=== PATIENT | female | born 1940 | race Caucasian/White ===

== ENCOUNTER → 2017-04-24 10:24 | Outpatient (CLI) | payer MEDICARE, SELFPAY ==
[2017-04-24 11:44] LABS: Anion Gap 7 (5-15); BUN 30 mg/dL (7-18); BUN/Creat Ratio 21.9 RATIO (10-20); Calcium,Total 9.7 mg/dL (8.5-10.1); Chloride 100 mmol/L (98-107); Creatinine, Serum 1.37 mg/dL (0.55-1.02); EST Glomerular Filtration Rate 40 mL/min (>60); Est Glom Filt Rate - Afr Amer 48 mL/min (>60); Glucose 83 mg/dL (70-110); Potassium 4.6 mmol/L (3.5-5.1); Sodium Level 138 mmol/L (136-145)
== END ==
PROVIDERS: Family Provider Family Medicine; PCP Family Medicine; Visit Provider Internal Medicine Nephrology
DX: N18.3 Chronic kidney disease, stage 3 (moderate) (principal)
CPT/HCPCS: 36415; 80048

== ENCOUNTER → 2017-07-11 10:05 | Outpatient (CLI) | payer MEDICARE, SELFPAY ==
[2017-07-11 10:56] LABS: Hematocrit 38.8 % (37-47); Hemoglobin 12.5 g/dl (12.0-15.0); Mean Corp Hgb Conc 32.2 g/gl (32-36); Mean Corpuscular Hgb 31.7 pg (27.0-32.0); Mean Corpuscular Volume 98.5 fL (81-99); Mean Platelet Vol. 9.8 fl (6.2-12.0); Platelet Count 280 K/mm3 (150-450); RBC Distribution Width CV 13.3 % (11.6-14.6); RBC Distribution Width SD 46.9 fl (35.1-43.9); Red Blood Count 3.94 M/mm3 (4.2-5.4); Scan Indicated on CBC? Y/N NO; White Blood Count 8.2 K/mm3 (4.4-11.0)
[2017-07-11 11:23] LABS: Albumin, Serum 3.3 g/dL (3.2-5.0); BUN 44 mg/dL (7-18); BUN/Creat Ratio 31.7 RATIO (10-20); Calcium,Total 9.1 mg/dL (8.5-10.1); Chloride 105 mmol/L (98-107); Creatinine, Serum 1.39 mg/dL (0.55-1.02); EST Glomerular Filtration Rate 39 mL/min (>60); Est Glom Filt Rate - Afr Amer 48 mL/min (>60); Glucose 73 mg/dL (74-106); Potassium 4.9 mmol/L (3.5-5.1); Sodium Level 141 mmol/L (136-145)
== END ==
PROVIDERS: Family Provider Family Medicine; PCP Family Medicine; Visit Provider Internal Medicine Nephrology
DX: D64.9 Anemia, unspecified (principal); N18.3 Chronic kidney disease, stage 3 (moderate)
CPT/HCPCS: 36415; 80069; 85027

== ENCOUNTER → 2017-09-12 10:24 | Outpatient (CLI) | payer MEDICARE, SELFPAY ==
[2017-09-12 11:26] LABS: Albumin, Serum 3.2 g/dL (3.2-5.0); BUN 31 mg/dL (7-18); BUN/Creat Ratio 20.8 RATIO (10-20); Chloride 106 mmol/L (98-107); Creatinine, Serum 1.49 mg/dL (0.55-1.02); EST Glomerular Filtration Rate 36 mL/min (>60); Est Glom Filt Rate - Afr Amer 44 mL/min (>60); Glucose 87 mg/dL (74-106); Phosphorus 3.4 mg/dL (2.5-4.9); Potassium 4.8 mmol/L (3.5-5.1); Sodium Level 140 mmol/L (136-145)
[2017-09-12 11:35] LABS: PTHIN 113.9 pg/mL (18.4-80.1)
== END ==
PROVIDERS: Family Provider Family Medicine; PCP Family Medicine; Visit Provider Internal Medicine Nephrology
DX: E11.22 Type 2 diabetes mellitus with diabetic chronic kidney disease (principal); N18.3 Chronic kidney disease, stage 3 (moderate); N17.9 Acute kidney failure, unspecified
CPT/HCPCS: 36415; 80069; 83970

== ENCOUNTER → 2017-11-20 10:47 | Outpatient (CLI) | payer MEDICARE, SELFPAY ==
[2017-11-20 11:23] LABS: Hematocrit 38.5 % (37-47); Hemoglobin 12.5 g/dl (12.0-15.0); Mean Corp Hgb Conc 32.5 g/gl (32-36); Mean Corpuscular Hgb 32.6 pg (27.0-32.0); Mean Corpuscular Volume 100.3 fL (81-99); Mean Platelet Vol. 9.6 fl (6.2-12.0); Platelet Count 253 K/mm3 (150-450); RBC Distribution Width CV 13.2 % (11.6-14.6); RBC Distribution Width SD 48.2 fl (35.1-43.9); Red Blood Count 3.84 M/mm3 (4.2-5.4); White Blood Count 7.5 K/mm3 (4.4-11.0)
[2017-11-20 11:24] LABS: Scan Indicated on CBC? Y/N NO
[2017-11-20 11:31] LABS: Protein, Urine (Random) 121.2 mg/dL (<11.9); Protein:Creat Ratio 2335 mg/g CRE (0-200)
[2017-11-20 11:50] LABS: Albumin, Serum 3.4 g/dL (3.2-5.0); BUN 34 mg/dL (7-18); BUN/Creat Ratio 21.9 RATIO (10-20); Chloride 105 mmol/L (98-107); Creatinine, Serum 1.55 mg/dL (0.55-1.02); EST Glomerular Filtration Rate 35 mL/min (>60); Est Glom Filt Rate - Afr Amer 42 mL/min (>60); Glucose 189 mg/dL (74-106); Phosphorus 3.3 mg/dL (2.5-4.9); Potassium 4.6 mmol/L (3.5-5.1); Sodium Level 140 mmol/L (136-145)
[2017-11-21 15:03] LABS: Ferritin 159 ng/mL (8-252); Iron 76 ug/dL (50-170); Iron Binding Capacity,Total 239 ug/dL (250-450); PERCENT IRON SATURATION 31.8 % (15.0-55.0)
== END ==
PROVIDERS: Family Provider Family Medicine; PCP Family Medicine; Visit Provider Internal Medicine Nephrology
DX: N18.3 Chronic kidney disease, stage 3 (moderate) (principal); D63.8 Anemia in other chronic diseases classified elsewhere; E11.22 Type 2 diabetes mellitus with diabetic chronic kidney disease
CPT/HCPCS: 36415; 80069; 82570; 82728; 83540; 83550; 84156; 85027

== ENCOUNTER → 2018-10-19 12:09 | Outpatient (CLI) | payer MEDICARE, SELFPAY ==
[2018-10-13 13:57] VITALS: BMI 43.8
[2018-10-19 12:48] LABS: Hematocrit 38.6 % (37-47); Hemoglobin 12.3 g/dL (12.0-15.0); Mean Corp Hgb Conc 31.9 g/dL (32-36); Mean Corpuscular Volume 100.5 fL (81-99); Platelet Count 261 K/mm3 (150-450); RBC Distribution Width CV 11.9 % (11.6-14.6); RBC Distribution Width SD 43.6 fl (35.1-43.9); Red Blood Count 3.84 M/mm3 (4.2-5.4); White Blood Count 7.9 K/mm3 (4.4-11.0)
[2018-10-19 13:02] LABS: Protein, Urine (Random) 90.3 mg/dL (<11.9); Protein:Creat Ratio 2770 mg/g CRE (0-200)
[2018-10-19 13:30] LABS: BUN 53 mg/dL (7-18); EST Glomerular Filtration Rate 27 mL/min (>60); Glucose 192 mg/dL (74-106)
[2018-10-19 13:31] LABS: Albumin, Serum 3.3 g/dL (3.2-5.0); BUN/Creat Ratio 27.9 RATIO (10-20); Calcium,Total 8.9 mg/dL (8.5-10.1); Chloride 103 mmol/L (98-107); Est Glom Filt Rate - Afr Amer 33 mL/min (>60); Phosphorus 3.8 mg/dL (2.5-4.9); Potassium 4.7 mmol/L (3.5-5.1); Sodium Level 139 mmol/L (136-145)
== END ==
PROVIDERS: Family Provider Family Medicine; PCP Family Medicine; Referring Provider Internal Medicine Nephrology; Visit Provider Internal Medicine Nephrology
DX: N18.3 Chronic kidney disease, stage 3 (moderate) (principal); N25.81 Secondary hyperparathyroidism of renal origin; D63.8 Anemia in other chronic diseases classified elsewhere; E11.22 Type 2 diabetes mellitus with diabetic chronic kidney disease
CPT/HCPCS: 36415; 80069; 82570; 83970; 84156; 85027

== ENCOUNTER → 2018-11-18 09:49 | Outpatient (CLI) | payer MEDICARE, SELFPAY ==
[2018-10-13 13:57] VITALS: BMI 43.8
[2018-11-18 11:00] LABS: Albumin, Serum 3.3 g/dL (3.2-5.0); BUN 47 mg/dL (7-18); BUN/Creat Ratio 27.2 RATIO (10-20); Calcium,Total 8.6 mg/dL (8.5-10.1); Chloride 108 mmol/L (98-107); Creatinine, Serum 1.73 mg/dL (0.55-1.02); EST Glomerular Filtration Rate 30 mL/min (>60); Est Glom Filt Rate - Afr Amer 37 mL/min (>60); Glucose 107 mg/dL (74-106); PTHIN 183.5 pg/mL (18.4-80.1); Phosphorus 3.9 mg/dL (2.5-4.9); Potassium 4.4 mmol/L (3.5-5.1); Sodium Level 143 mmol/L (136-145)
== END ==
PROVIDERS: Family Provider Family Medicine; PCP Family Medicine; Referring Provider Internal Medicine Nephrology; Visit Provider Internal Medicine Nephrology
DX: N18.3 Chronic kidney disease, stage 3 (moderate) (principal); N17.9 Acute kidney failure, unspecified; E55.9 Vitamin D deficiency, unspecified
CPT/HCPCS: 36415; 80069; 83970

== ENCOUNTER → 2018-12-18 11:24 | Outpatient (CLI) | payer MEDICARE, SELFPAY ==
[2018-10-13 13:57] VITALS: BMI 43.8
[2018-12-18 13:40] LABS: Vitamin D,25 Hydroxy 42.5 ng/mL (29.95-100.01)
[2018-12-18 13:53] LABS: Albumin, Serum 3.3 g/dL (3.2-5.0); BUN 57 mg/dL (7-18); Calcium,Total 8.6 mg/dL (8.5-10.1); Chloride 106 mmol/L (98-107); Creatinine, Serum 1.78 mg/dL (0.55-1.02); EST Glomerular Filtration Rate 29 mL/min (>60); Est Glom Filt Rate - Afr Amer 36 mL/min (>60); Glucose 170 mg/dL (74-106); Phosphorus 3.6 mg/dL (2.5-4.9); Potassium 4.6 mmol/L (3.5-5.1); Sodium Level 140 mmol/L (136-145)
== END ==
PROVIDERS: Family Provider Family Medicine; PCP Family Medicine; Referring Provider Internal Medicine Nephrology; Visit Provider Internal Medicine Nephrology
DX: E55.9 Vitamin D deficiency, unspecified (principal); N18.3 Chronic kidney disease, stage 3 (moderate)
CPT/HCPCS: 36415; 80069; 82306

== ENCOUNTER → 2019-08-27 10:50 | Outpatient (CLI) | payer MEDICARE, SELFPAY ==
[2018-12-22 14:55] VITALS: BMI 43.2
[2019-08-27 11:27] LABS: Hemoglobin 12.1 g/dL (12.0-15.0); Mean Corp Hgb Conc 31.8 g/dL (32-36); Mean Corpuscular Hgb 31.8 pg (27.0-32.0); Platelet Count 294 K/mm3 (150-450); RBC Distribution Width CV 12.9 % (11.6-14.6); RBC Distribution Width SD 47.8 fl (35.1-43.9)
[2019-08-27 11:48] LABS: Protein, Urine (Random) 228.6 mg/dL (<11.9); Protein:Creat Ratio 3693 mg/g CRE (0-200)
[2019-08-27 12:18] LABS: Albumin, Serum 3.3 g/dL (3.2-5.0); BUN 53 mg/dL (7-18); BUN/Creat Ratio 21.7 RATIO (10-20); Calcium,Total 8.5 mg/dL (8.5-10.1); Chloride 101 mmol/L (98-107); Creatinine, Serum 2.44 mg/dL (0.55-1.02); EST Glomerular Filtration Rate 20 mL/min (>60); Est Glom Filt Rate - Afr Amer 25 mL/min (>60); Ferritin 216 ng/mL (8-252); Glucose 204 mg/dL (74-106); Iron 71 ug/dL (50-170); Iron Binding Capacity,Total 258 ug/dL (250-450); PERCENT IRON SATURATION 27.5 % (15.0-55.0); Potassium 4.1 mmol/L (3.5-5.1); Sodium Level 139 mmol/L (136-145)
[2019-08-27 15:21] LABS: PTHIN 245.6 pg/mL (18.4-80.1)
[2019-08-27 16:07] LABS: Vitamin D,25 Hydroxy 40.1 ng/mL
== END ==
PROVIDERS: Family Provider Family Medicine; PCP Family Medicine; Referring Provider Internal Medicine Nephrology; Visit Provider Internal Medicine Nephrology
DX: N18.3 Chronic kidney disease, stage 3 (moderate) (principal); E11.22 Type 2 diabetes mellitus with diabetic chronic kidney disease; D63.8 Anemia in other chronic diseases classified elsewhere; N25.81 Secondary hyperparathyroidism of renal origin; E55.9 Vitamin D deficiency, unspecified
CPT/HCPCS: 36415; 80069; 82306; 82570; 82728; 83540; 83550; 83970; 84156; 85027

== ENCOUNTER → 2019-10-22 12:49 | Outpatient (CLI) | payer MEDICARE, SELFPAY ==
[2018-12-22 14:55] VITALS: BMI 43.2
[2019-10-22 14:21] LABS: PTHIN 164.6 pg/mL (18.4-80.1)
[2019-10-22 14:24] LABS: Albumin, Serum 2.8 g/dL (3.2-5.0); BUN 35 mg/dL (7-18); BUN/Creat Ratio 18.4 RATIO (10-20); Calcium,Total 8.5 mg/dL (8.5-10.1); Chloride 106 mmol/L (98-107); EST Glomerular Filtration Rate 27 mL/min (>60); Est Glom Filt Rate - Afr Amer 33 mL/min (>60); Glucose 164 mg/dL (74-106); Phosphorus 3.5 mg/dL (2.5-4.9); Potassium 4.7 mmol/L (3.5-5.1); Sodium Level 137 mmol/L (136-145)
== END ==
PROVIDERS: PCP Family Medicine; Referring Provider Internal Medicine Nephrology; Visit Provider Internal Medicine Nephrology
DX: N18.3 Chronic kidney disease, stage 3 (moderate) (principal); N25.81 Secondary hyperparathyroidism of renal origin
CPT/HCPCS: 36415; 80069; 83970

== ENCOUNTER → 2019-12-30 12:47 | Outpatient (CLI) | payer MEDICARE, SELFPAY ==
[2019-10-26 13:39] VITALS: BMI 41.7
[2019-12-30 13:18] LABS: Hematocrit 33.9 % (37-47); Hemoglobin 10.4 g/dL (12.0-15.0); Mean Corp Hgb Conc 30.7 g/dL (32-36); Mean Corpuscular Hgb 31.7 pg (27.0-32.0); Mean Corpuscular Volume 103.4 fL (81-99); Mean Platelet Vol. 9.5 fl (6.2-12.0); Platelet Count 252 K/mm3 (150-450); RBC Distribution Width CV 12.4 % (11.6-14.6); RBC Distribution Width SD 47.1 fl (35.1-43.9); Red Blood Count 3.28 M/mm3 (4.2-5.4); White Blood Count 5.7 K/mm3 (4.4-11.0)
[2019-12-30 13:37] LABS: PTHIN 251.7 pg/mL (18.4-80.1)
[2019-12-30 13:40] LABS: Albumin, Serum 2.9 g/dL (3.2-5.0); BUN 30 mg/dL (7-18); BUN/Creat Ratio 13.3 RATIO (10-20); Calcium,Total 8.3 mg/dL (8.5-10.1); Chloride 106 mmol/L (98-107); Creatinine, Serum 2.26 mg/dL (0.55-1.02); EST Glomerular Filtration Rate 22 mL/min (>60); Est Glom Filt Rate - Afr Amer 27 mL/min (>60); Glucose 207 mg/dL (74-106); Phosphorus 3.5 mg/dL (2.5-4.9); Potassium 4.2 mmol/L (3.5-5.1); Sodium Level 139 mmol/L (136-145)
== END ==
PROVIDERS: PCP Family Medicine; Referring Provider Internal Medicine Nephrology; Visit Provider Internal Medicine Nephrology
DX: N18.30 Chronic kidney disease, stage 3 unspecified (principal); N25.81 Secondary hyperparathyroidism of renal origin; D63.8 Anemia in other chronic diseases classified elsewhere
CPT/HCPCS: 36415; 80069; 83970; 85027

== ENCOUNTER 2020-12-13 17:05 | Emergency (ER) | payer MEDICARE, SELFPAY ==
[2020-12-13 17:06] VITALS: BP 165/59; PULSE 57; RESP 15; TEMP 36.2; O2SAT 97; BMI 41.5
--- NOTE | 2020-12-13 19:33 | EDS_ITS ---
HPI History of Present Illness Chief Complaint: Eye Problem Informant: patient Onset/Context/Timing Location: Right Eye Onset: Days Context: Gradual Onset Timing: Intermittent Current Severity: Gone Maximum Severity: Mild Associated Symptoms Associated Symptoms - Eyes: Negative for Burning, Crusting, Drainage, Eyelid swelling, Foreign body sensation, Itching, Matting, Pain, Photophobia and Redness History of injury: No Visual correction: Glasses Narrative Narrative: 72-year-old female history of diabetes prior cataract surgery in both eyes and surgery for glaucoma for which she is also on drops. Saw her fishing vessel operator Dr. Satnam Light of [facility] a week or 2 ago before the symptoms started just for a checkup. She denies any falls or trauma. She denies any headaches. Currently she is not having any symptoms. She said when she gets it it feels like a curtain coming down from the top of her right eye. It normally last 2 to 4 minutes. Currently she is completely symptom-free. There is no pain. States her blood sugars have been running around 100. Prior similar symptoms: No Recent Illness/Hospitalization: No PFSH [facility] Medical History Asthma Atherosclerosis of coronary artery of [place] heart without angina pectoris Bilateral carotid artery stenosis Chronic diastolic CHF (congestive heart failure) Essential hypertension GERD (gastroesophageal reflux disease) Glaucoma History of left heart catheterization (~2015) Hyperlipidemia Hyperparathyroidism, secondary renal Hypothyroidism Lichenification and lichen simplex chronicus Major depressive disorder Neurodermatitis Non-proliferative diabetic retinopathy, both eyes Nummular eczema Stage 3 chronic kidney disease Type II diabetes mellitus Vitamin B 12 deficiency Home Medications acetaminophen 500 mg tablet 500 mg PO Q6H PRN 10/12/18 [History Last Taken Unknown] amlodipine 10 mg tablet 10 mg PO DAILY 10/12/18 [History Last Taken Unknown] aspirin 81 mg chewable tablet 81 mg PO DAILY 10/12/18 [History Last Taken Unknown] atorvastatin 80 mg tablet 80 mg PO QHS 10/12/18 [History Last Taken Unknown] citalopram 40 mg tablet 40 mg PO DAILY tab 10/12/18 [History Last Taken Unknown] cyanocobalamin (vitamin B-12) 2,500 mcg sublingual tablet 2,500 mcg SUBLINGUAL DAILY 10/12/18 [History Last Taken Unknown] ergocalciferol (vitamin D2) 1,250 mcg (50,000 unit) capsule 50,000 unit PO QWEEK 10/12/18 [History Last Taken Unknown] insulin glargine 100 unit/mL (3 mL) subcutaneous pen 28 unit SC DAILY ml 10/12/18 [History Last Taken Unknown] omeprazole 40 mg capsule,delayed release 40 mg PO DAILY 10/12/18 [History Last Taken Unknown] albuterol sulfate 90 mcg/actuation aerosol inhaler 2 puff INHALATION Q4H PRN g 10/13/18 [History Last Taken Unknown] ferrous sulfate 325 mg (65 mg iron) tablet 325 mg PO BID tab 10/13/18 [History Last Taken Unknown] glipizide 5 mg tablet 5 mg PO DAILY tab 12/22/18 [History Last Taken Unknown] biotin 5 mg capsule 5 mg PO DAILY 10/26/19 [History Last Taken Unknown] calcitriol 0.25 mcg capsule 0.25 mcg PO .COMPLEX cap 10/26/19 [History Last Taken Unknown] calcium carbonate 600 mg calcium (1,500 mg) tablet 600 mg PO DAILY 10/26/19 [History Last Taken Unknown] folic acid 400 mcg tablet 0.4 mg PO DAILY 10/26/19 [History Last Taken Unknown] furosemide 20 mg tablet 20 mg PO DAILY PRN tab 10/26/19 [History Last Taken Unknown] latanoprost 0.005 % eye drops 1 drp OPHTHALMIC BID ml 10/26/19 [History Last Taken Unknown] levothyroxine 137 mcg tablet 137 mcg PO DAILY tab 10/26/19 [History Last Taken Unknown] montelukast 10 mg tablet 10 mg PO DAILY 10/26/19 [History Last Taken Unknown] niacin 500 mg tablet,extended release 24 hr 500 mg PO DAILY tab 10/26/19 [History Last Taken Unknown] magnesium oxide 400 mg PO DAILY 08/15/20 [History Last Taken Unknown] hydralazine 25 mg tablet 100 mg PO TID #360 tab 09/14/20 [Rx Last Taken Unknown] carvedilol 3.125 mg tablet 3.125 mg PO BID #60 tab 11/22/20 [Rx Last Taken Unknown] clonidine HCl 0.2 mg tablet 0.2 mg PO BID tab 11/22/20 [History Last Taken Unknown] losartan 100 mg tablet 100 mg PO DAILY 11/22/20 [History Last Taken Unknown] Allergy/AdvReac Type Severity Reaction Status Date / Time metformin [From Glucophage] Allergy Severe renal Verified 12/13/20 17:06 failure adhesive Allergy Intermediate blisters Verified 12/13/20 17:06 oxycodone Allergy Intermediate hallucinati Verified 12/13/20 17:06 ons tramadol Allergy Intermediate Vomiting Verified 12/13/20 17:06 ERIC Inhibitors AdvReac Intermediate cough Verified 12/13/20 17:06 Family History Father Heart disease Hypertension Suicide Mother Hypertension CVA (cerebral vascular accident) COPD (chronic obstructive pulmonary disease) CAD (coronary artery disease) Surgical History History of bilateral knee replacement (~1989) History of breast biopsy History of open reduction and internal fixation (ORIF) procedure History of right cataract extraction (10/03/11) History of tonsillectomy Social History Smoking Status: Never smoker alcohol intake: never substance use type: does not use caffeine: Yes Type: coffee Number of servings: 2 ROS ROS ED ROS Narrative Denies recent illness. Review of Systems ROS Unobtainable: Denies due to encephalopathy Constitutional Constitutional ED: Denies chills or fever(s) Eyes Eyes: Reports change in vision; Denies diplopia ENT ENT ED: Denies ear pain or sore throat Cardiovascular Cardiovascular: Denies chest pain Respiratory/Chest Respiratory/Chest: Denies cough or dyspnea Gastrointestinal Gastrointestinal: Denies abdominal pain, diarrhea, nausea or vomiting Genitourinary Genitourinary ED: Denies dysuria or hematuria Musculoskeletal Musculoskeletal: Denies myalgias Integumentary Denies rash Neurologic Neurologic: Denies headache(s) Psychiatric Psychiatric: Denies depression Endocrine Endocrinology: Denies polyuria Hematologic/Lymphatic Hematologic/Lymphatic: Denies easy bruising Allergic/Immunologic Allergic/Immunologic ED: Denies urticaria EXAM Physical Exam Narrative Exam Narrative: Female no acute distress. Normal visual acuity with her glasses on. HEENT exam unremarkable. Pupils round reactive light about 2 mm bilaterally. Extra motions are intact. No facial droop. Normal speech. I did a funduscopic exam of her right eye was unremarkable but this was a nondilated pupil. Lungs are clear. Heart regular rate and rhythm. Moving all 4 extremities. Mild bilateral lower extremity edema bilaterally. Neurologically she is awake and alert. No focal motor deficits. Currently she has normal corrected vision with her eyes. Const Vital Signs: 12/13/20 17:06 Temperature 97.2 F L Temperature Source Temporal Pulse Rate 57 L Respiratory Rate 15 Blood Pressure 165/59 H Blood Pressure Mean 94 Pulse Ox 97 Oxygen Delivery Method Room Air Positive well nourished and well developed; Negative for obese, cachectic, contractures or unkempt General Appearance ED: well developed and NAD; Negative for unkempt, cachectic or contractures Nutritional Appearance: Negative for cachectic or obese HEENT atraumatic; Negative for trauma or tenderness Eyes General Eye ED: Yes normal appearance of both eyes Visual Acuity: acuity normal; Negative for complete vision loss Visual Field: No peripheral vision loss and No central vision loss Periorbital: periorbital findings normal Eyelid: eyelids normal Conjunctiva: conjunctiva normal Sclera: sclera normal Cornea: cornea normal Pupil: PERRL Slit Lamp: No slit lamp exam performed with fluorescein Neck no lymphadenopathy, supple and no JVD Resp normal respiratory effort, no retractions, no use of accessory muscles and clear to auscultation bilaterally Cardio regular rate, regular rhythm, S1 normal heart sound, S2 normal heart sound and no murmurs GI non-tender, non-distended and no masses Auscultation: normoactive bowel sounds Palpation: soft Back/Spine no CVA tenderness General Back: Negative for CVA tenderness Extremity Extremity Narrative: Bilateral lower extremity edema. Nontender. General Extremety ED: Yes edema General Extremity: edema Neuro oriented x3, CN's II-XII intact bilaterally and moves all extremities Sensorium / Orientation: alert, oriented to person, oriented to place and oriented to time; Negative for orientation impaired Motor Exam: strength 5/5 throughout Psych Appearance: Negative for unkempt Mood & Affect: Negative for depressed or tearful Skin Lesions: no lesions Rashes: no rashes MDM MDM MDM Narrative Medical decision making narrative: Patient with intermittent vision change right eye. Currently she is having no symptoms. She has normal corrected vision with her glasses. Clinically this sounds like she may have a detached retina. But at this time she is symptom-free. I will speak to the fishing vessel operator stitch bonding machine drawer in for [facility] and most likely patient can have close follow-up tomorrow morning. I spoke with fishing vessel operator on-call he wanted me to do CAT scan and neurological work-up. This showed no acute abnormality. Sedimentation rate was elevated at 49. CRP was elevated at 10. Patient will follow up with ophthalmology tomorrow. Repeat exam at 10:25 PM she is doing well. Lab Data Attestation: I reviewed the patient's lab results. Lab results narrative: CBC showed a white count 8. Hemoglobin is 10 which is her baseline chronic anemia. Electrolytes unremarkable BUNs elevated 46 creatinine 3.53 she has a history of end-stage renal disease. Glucose 68. Normal gap. Rhythm Strip Rhythm Strip: Junctional rhythm Rate: 54 Ectopy: None EKG Initial EKG: Attestation: I personally reviewed and interpreted this EKG as follows: Interpretation: No Acute Injury Pattern and Junctional Comments: Junctional rhythm rate of 54 no acute signs of IN or ischemia. Prior EKG tracings: not available for review Discharge Plan Triage Chief Complaint: Eye Problem ED Provider: Dipak Johnston Dx/Rx/DC Orders Clinical Impression: Detached retina, right Instructions: ED Retinal Detachment Prescriptions: No Action amlodipine 10 mg tablet 10 mg PO DAILY RF: 0 omeprazole 40 mg capsule,delayed release(DR/EC) 40 mg PO DAILY RF: 0 ergocalciferol (vitamin D2) 50,000 unit capsule 50,000 unit PO QWEEK RF: 0 citalopram 40 mg tablet 40 mg PO DAILY RF: 0 atorvastatin 80 mg tablet 80 mg PO QHS RF: 0 insulin glargine 100 unit/mL (3 mL) insulin pen 28 unit SC DAILY RF: 0 cyanocobalamin (vitamin B-12) [Vitamin B-12] 2,500 mcg tablet, sublingual 2,500 mcg SUBLINGUAL DAILY RF: 0 acetaminophen 500 mg tablet 500 mg PO Q6H PRNRF: 0 aspirin 81 mg tablet,chewable 81 mg PO DAILY RF: 0 albuterol sulfate 90 mcg/actuation HFA aerosol inhaler 2 puff INHALATION Q4H PRNRF: 0 ferrous sulfate 325 mg (65 mg iron) tablet 325 mg PO BID RF: 0 glipizide 5 mg tablet 5 mg PO DAILY RF: 0 latanoprost 0.005 % drops 1 drp OPHTHALMIC BID RF: 0 levothyroxine 137 mcg tablet 137 mcg PO DAILY RF: 0 furosemide 20 mg tablet 20 mg PO DAILY PRN (Reason: shortness of breath) RF: 0 niacin [Niaspan Extended-Release] 500 mg tablet extended release 24 hr 500 mg PO DAILY RF: 0 clonidine HCl 0.2 mg tablet 0.2 mg PO BID RF: 0 biotin 5 mg capsule 5 mg PO DAILY RF: 0 calcitriol 0.25 mcg capsule 0.25 mcg PO .COMPLEX RF: 0 folic acid 400 mcg tablet 0.4 mg PO DAILY RF: 0 montelukast 10 mg tablet 10 mg PO DAILY RF: 0 calcium carbonate 600 mg calcium (1,500 mg) tablet 600 mg PO DAILY RF: 0 magnesium oxide 400 mg magnesium tablet 400 mg PO DAILY RF: 0 losartan 100 mg tablet 100 mg PO DAILY RF: 0 carvedilol 3.125 mg tablet 3.125 mg PO BID Qty: 60 RF: 11 hydralazine 25 mg tablet 100 mg PO TID Qty: 360 RF: 11 Primary Care Provider: Satnam Saldana Referrals: Satnam Saldana MD [Primary Care Provider] - Satnam Light MD [STAFF PHYSICIAN] - 1 Day Activity Restrictions/Additional Instructions: Call and follow-up with your eye doctor first thing tomorrow morning. My concern is for a possible detached retina. They will be able to dilate your pupil and look at your back your eye well and determine the specific cause of your symptoms. Disposition Disposition: Home, Self Care
[2020-12-13 19:53] VITALS: BP 218/72
--- NOTE | 2020-12-13 20:06 | EKG12_ITS ---
Test Reason : DYSRHYTHMIA Blood Pressure : / mmHG Vent. Rate : 054 BPM Atrial Rate : 052 BPM P-R Int : 000 ms QRS Dur : 094 ms QT Int : 516 ms P-R-T Axes : 000 021 048 degrees QTc Int : 489 ms Junctional rhythm Low voltage QRS Abnormal ECG Confirmed by ANTONIETA TAYLOR, SHANA ([id number]), publication editor LENNOX MOCTEZUMA ([id number]) on 12/14/2020 10:40:55 AM Referred By: CHIDI Confirmed By:SHANA FUNG MD
--- NOTE | 2020-12-13 20:10 | CT_ITS ---
HISTORY: vision change TECHNIQUE: Multiple axial images were obtained of the brain without intravenous contrast. A radiation dose optimization technique was used for this scan. IV Contrast dosage and agent: None. COMPARISON: None FINDINGS: # of images incl. paperwork: [id number] PARANASAL SINUSES AND MASTOID AIR CELLS: Scattered mucoperiosteal disease. INTRACRANIAL HEMORRHAGE: None. BRAIN PARENCHYMA: No CT evidence of stroke. No intracranial masses. There is preservation of the varghese/white matter interface. Posterior fossa structures are unremarkable. There is hypoattenuation of the periventricular white matter. Chronic involutional changes are noted. CSF SPACES: Appropriate for age. There is no hydrocephalus. MASS EFFECT: None. CALVARIUM: No acute fracture. CT/Brain/Head without Contrast IMPRESSION: Chronic involutional and white matter changes. No acute intracranial process. Individualized dose optimization techniques were used for this CT. at 2056 Reported and signed by: Stephane Carter MD Electronically Signed: Stephane Carter MD at 20:55 EDT Tel , Service support ,
[2020-12-13 20:49] LABS: Anion Gap 6 (5-15); BUN 46 mg/dL (7-18); Calcium,Total 7.4 mg/dL (8.5-10.1); Chloride 109 mmol/L (98-107); Creatinine, Serum 3.53 mg/dL (0.55-1.02); EST Glomerular Filtration Rate 13 mL/min (>60); Est Glom Filt Rate - Afr Amer 16 mL/min (>60); Estimated Creatinine Clearance 9.91 ml/min; Glucose 68 mg/dL (74-106); Hematocrit 33.9 % (37-47); Hemoglobin 10.4 g/dL (12.0-15.0); Mean Corp Hgb Conc 30.7 g/dL (32-36); Mean Corpuscular Volume 104.3 fL (81-99); Mean Platelet Vol. 9.8 fl (6.2-12.0); Platelet Count 341 K/mm3 (150-450); Potassium 4.5 mmol/L (3.5-5.1); RBC Distribution Width CV 12.7 % (11.6-14.6); RBC Distribution Width SD 49.1 fl (35.1-43.9); Red Blood Count 3.25 M/mm3 (4.2-5.4); Sodium Level 139 mmol/L (136-145)
[2020-12-13 21:30] LABS: Erythrocyte Sedimentation Rate 49 mm/hr (0-30)
== END 2020-12-13 22:37 | disposition home or self-care (01) ==
PROVIDERS: Emergency Provider Emergency Medicine; PCP Family Medicine
DX: H33.21 Serous retinal detachment, right eye (principal); I13.2 Hypertensive heart and chronic kidney disease with heart failure and with stage 5 chronic kidney disease, or end stage renal disease; E11.22 Type 2 diabetes mellitus with diabetic chronic kidney disease; N18.6 End stage renal disease; I50.32 Chronic diastolic (congestive) heart failure; E03.9 Hypothyroidism, unspecified; E78.5 Hyperlipidemia, unspecified; F32.9 Major depressive disorder, single episode, unspecified; I25.10 Atherosclerotic heart disease of native coronary artery without angina pectoris; J45.909 Unspecified asthma, uncomplicated; K21.9 Gastro-esophageal reflux disease without esophagitis; N25.81 Secondary hyperparathyroidism of renal origin; Z79.4 Long term (current) use of insulin; Z79.82 Long term (current) use of aspirin; Z96.653 Presence of artificial knee joint, bilateral; Z98.41 Cataract extraction status, right eye
CPT/HCPCS: 70450; 80048; 85027; 85652; 86140; 93005; 99284

== ENCOUNTER → 2020-12-14 13:18 | Outpatient (CLI) | payer MEDICARE, SELFPAY ==
[2020-12-14 13:46] LABS: Body Fluid Mononuclear WBC # 0.053 10^3/uL; Body Fluid Mononuclear WBC % 40.2 %; Body Fluid Polynuclear WBC # 0.079 10^3/uL; Body Fluid Polynuclear WBC % 59.8 %; Body Fluid Total Cells Counted 0.136 10^3/ul; White Blood Count/Body Fluid 0.132 10^3/uL
[2020-12-14 13:56] LABS: Appearance/Body Fluid CLEAR; Auto B Fluid Analyzer BKGD Ct COUNTS W/IN LIMITS (W/IN LIMITS); Color/Body Fluid COLORLESS; Source- Body Fluid PERITONEAL FLUID
[2020-12-14 15:00] LABS: Lymphocytes 19 %; Monocytes 6 %; Neutrophil (Segs) 31 %; Other Cell Type/BF 44 %
[2020-12-14 15:01] LABS: Body Fluid QC Type(s) BF1Q; Red Cell Count/Body Fluid 4 /mm3
[2020-12-15 14:34] LABS: Pathologist Comment/Body Fluid Reviewed
== END ==
PROVIDERS: Visit Provider Internal Medicine Nephrology
DX: K65.9 Peritonitis, unspecified (principal)
CPT/HCPCS: 87070; 87075; 87205; 89050

== ENCOUNTER 2021-03-27 23:33 | Inpatient (IN) | payer MEDICARE, SELFPAY ==
[2021-03-27 23:46] VITALS: BP 179/102; PULSE 84; RESP 25; TEMP 36.6; O2SAT 99; BMI 40.1
[2021-03-28] VITALS (33 sets, daily range): BP systolic 91–232; BP diastolic 39–129; PULSE 52–157; RESP 10–30; TEMP 36.3–37; O2SAT 85–100; BMI 38.6
--- NOTE | 2021-03-28 00:32 | EKG12_ITS ---
Test Reason : DYSRHYTHMIA Blood Pressure : / mmHG Vent. Rate : 055 BPM Atrial Rate : 059 BPM P-R Int : 000 ms QRS Dur : 100 ms QT Int : 688 ms P-R-T Axes : 000 012 047 degrees QTc Int : 658 ms sinus bradycardia Prolonged QT Abnormal ECG Confirmed by ANTONIETA TAYLOR, SHANA ([id number]), photography editor SONYA PRASAD ([id number]) on 03/29/2021 8:55:02 AM Referred By: BB Confirmed By:SHANA FUNG MD
[2021-03-28 00:40] LABS: Absolute Lymphocyte Count 2.85 X10^3/uL (0.83-4.51); Absolute Neutrophil Count 4.8 X10^3/uL (2.0-7.7); Basophil# 0.05 X10^3/uL; Basophil% 0.6 % (0-1); Eosinophil# 0.09 X10^3/uL; Eosinophils% 1.1 % (0-5); Hematocrit 31.3 % (37-47); Hemoglobin 10.2 g/dL (12.0-15.0); Lymphocyte # 2.85 X10^3/ul (0.83-4.51); Lymphocyte % 33.8 % (19-41); Mean Corp Hgb Conc 32.6 g/dL (32-36); Mean Corpuscular Hgb 31.7 pg (27.0-32.0); Mean Corpuscular Volume 97.2 fL (81-99); Mean Platelet Vol. 10.3 fl (6.2-12.0); Monocyte# 0.61 X10^3/uL; Monocyte% 7.2 % (0-10); NRBC Flagged by Analyzer 0 % (0-5); Neutrophil # 4.81 X10^3/uL (2.7-7.7); Neutrophil % 56.9 % (47-70); Platelet Count 260 K/mm3 (150-450); RBC Distribution Width CV 12.5 % (11.6-14.6); RBC Distribution Width SD 44.4 fl (35.1-43.9); Red Blood Count 3.22 M/mm3 (4.2-5.4); White Blood Count 8.4 K/mm3 (4.4-11.0)
--- NOTE | 2021-03-28 00:40 | EDS_ITS ---
HPI History of Present Illness Chief Complaint: Syncope Informant: patient Onset/Context/Timing Onset: Today Context: Gradual Onset (With prodromal lightheadedness before each episode) Timing: Intermittent (X5) Quality: Syncope Current Severity: Gone Maximum Severity: Severe Worsened by: Standing Relieved by: Nothing Associated Symptoms Associated Symptoms: Prodromal lightheadedness Narrative Narrative: no prodromal chest discomfort, dyspnea, palpitations, focal neurologic symptoms, headache. Has a history of congestive heart failure. States she has not been drinking lots of fluids lately or excessively, no edema in her legs, no recent illness or injury, she states she does not feel like she injured herself with these falls. Daughter witnessed most of them and EMS was called they witnessed one too. [facility] Medical History Asthma Atherosclerosis of coronary artery of [place] heart without angina pectoris Bilateral carotid artery stenosis Chronic diastolic CHF (congestive heart failure) Essential hypertension GERD (gastroesophageal reflux disease) Glaucoma Hyperlipidemia Hyperparathyroidism, secondary renal Hypothyroidism Lichenification and lichen simplex chronicus Major depressive disorder Neurodermatitis Non-proliferative diabetic retinopathy, both eyes Nonobstructive atherosclerosis of coronary artery Nummular eczema Obesity Stage 3 chronic kidney disease Stenosis of left carotid artery Type II diabetes mellitus Vitamin B 12 deficiency Home Medications acetaminophen 500 mg tablet 500 mg PO Q6H PRN 10/12/18 [History Last Taken Unknown] amlodipine 10 mg tablet 10 mg PO DAILY 10/12/18 [History Last Taken Unknown] aspirin 81 mg chewable tablet 81 mg PO DAILY 10/12/18 [History Last Taken Unknown] atorvastatin 80 mg tablet 80 mg PO QHS 10/12/18 [History Last Taken Unknown] citalopram 40 mg tablet 40 mg PO DAILY tab 10/12/18 [History Last Taken Unknown] cyanocobalamin (vitamin B-12) 2,500 mcg sublingual tablet 2,500 mcg SUBLINGUAL DAILY 10/12/18 [History Last Taken Unknown] ergocalciferol (vitamin D2) 1,250 mcg (50,000 unit) capsule 50,000 unit PO QWEEK 10/12/18 [History Last Taken Unknown] insulin glargine 100 unit/mL (3 mL) subcutaneous pen 28 unit SC DAILY ml 10/12/18 [History Last Taken Unknown] omeprazole 40 mg capsule,delayed release 40 mg PO DAILY 10/12/18 [History Last Taken Unknown] albuterol sulfate 90 mcg/actuation aerosol inhaler 2 puff INHALATION Q4H PRN g 10/13/18 [History Last Taken Unknown] ferrous sulfate 325 mg (65 mg iron) tablet 325 mg PO BID tab 10/13/18 [History Last Taken Unknown] glipizide 5 mg tablet 5 mg PO DAILY tab 12/22/18 [History Last Taken Unknown] biotin 5 mg capsule 5 mg PO DAILY 10/26/19 [History Last Taken Unknown] calcitriol 0.25 mcg capsule 0.25 mcg PO .COMPLEX cap 10/26/19 [History Last Taken Unknown] calcium carbonate 600 mg calcium (1,500 mg) tablet 600 mg PO DAILY 10/26/19 [History Last Taken Unknown] folic acid 400 mcg tablet 0.4 mg PO DAILY 10/26/19 [History Last Taken Unknown] furosemide 20 mg tablet 20 mg PO DAILY PRN tab 10/26/19 [History Last Taken Unknown] latanoprost 0.005 % eye drops 1 drp OPHTHALMIC BID ml 10/26/19 [History Last Taken Unknown] levothyroxine 137 mcg tablet 137 mcg PO DAILY tab 10/26/19 [History Last Taken Unknown] montelukast 10 mg tablet 10 mg PO DAILY 10/26/19 [History Last Taken Unknown] niacin 500 mg tablet,extended release 24 hr 500 mg PO DAILY tab 10/26/19 [History Last Taken Unknown] magnesium oxide 400 mg PO DAILY 08/15/20 [History Last Taken Unknown] hydralazine 25 mg tablet 100 mg PO TID #360 tab 09/14/20 [Rx Last Taken Unknown] carvedilol 3.125 mg tablet 3.125 mg PO BID #60 tab 11/22/20 [Rx Last Taken Unknown] clonidine HCl 0.2 mg tablet 0.2 mg PO BID tab 11/22/20 [History Last Taken Unknown] losartan 100 mg tablet 100 mg PO DAILY 11/22/20 [History Last Taken Unknown] Allergy/AdvReac Type Severity Reaction Status Date / Time metformin [From Glucophage] Allergy Severe renal Verified 03/27/21 23:50 failure adhesive Allergy Intermediate blisters Verified 03/27/21 23:50 oxycodone Allergy Intermediate hallucinati Verified 03/27/21 23:50 ons tramadol Allergy Intermediate Vomiting Verified 03/27/21 23:50 ERIC Inhibitors AdvReac Intermediate cough Verified 03/27/21 23:50 Family History Father Heart disease Hypertension Suicide Mother Hypertension CVA (cerebral vascular accident) COPD (chronic obstructive pulmonary disease) CAD (coronary artery disease) Surgical History History of bilateral knee replacement (1989) History of breast biopsy History of left heart catheterization (2015) History of open reduction and internal fixation (ORIF) procedure History of right cataract extraction (10/03/11) History of tonsillectomy Social History Smoking Status: Never smoker alcohol intake: never substance use type: does not use caffeine: Yes Type: coffee Number of servings: 2 ROS ROS ED Constitutional Constitutional ED: Reports malaise; Denies chills or fever(s) Eyes Eyes: Denies change in vision or diplopia ENT ENT ED: Denies rhinorrhea or sore throat Cardiovascular Cardiovascular: Denies chest pain or palpitations Respiratory/Chest Respiratory/Chest: Denies cough or dyspnea Gastrointestinal Gastrointestinal: Denies abdominal pain, diarrhea, nausea or vomiting Genitourinary Genitourinary ED: Denies dysuria or hematuria Musculoskeletal Musculoskeletal: Denies back pain or neck pain Integumentary Denies abscess or rash Neurologic Neurologic: Denies headache(s), paresthesias or weakness Psychiatric Psychiatric: Denies anxiety or suicidal thoughts EXAM Physical Exam Const Vital Signs: 03/27/21 23:46 03/28/21 00:53 03/28/21 00:54 Temperature 97.9 F Temperature Source Oral Pulse Rate 84 Respiratory Rate 25 H Respiratory Effort Normal Blood Pressure 179/102 H Blood Pressure Mean 127 Pulse Ox 99 98 Oxygen Delivery Method Room Air Nasal Cannula Oxygen Flow Rate (L/min) 2 Positive well nourished and well developed General Appearance ED: well developed and NAD HEENT Reports moist mucous membranes normocephalic and atraumatic Eyes PERRL and EOMs intact bilaterally Neck full ROM and supple Resp normal respiratory effort and clear to auscultation bilaterally Cardio regular rate and regular rhythm Cardio Narrative: Heart rate in the 30s. Regular PVCs. Rate: bradycardia GI non-tender and non-distended Auscultation: normoactive bowel sounds Palpation: soft Back/Spine no CVA tenderness General Back: other FROM Extremity normal to inspection General Extremety ED: Negative for edema, pulses abnormal or tenderness General Extremity: Negative for edema or pulses abnormal Neuro oriented x3, CN's II-XII intact bilaterally and no sensory deficits noted Sensorium / Orientation: awake and alert Motor Exam: strength 5/5 throughout Skin no rashes or lesions noted and no wounds MDM MDM MDM Narrative Medical decision making narrative: Initially patient had a rhythm monitor/strip that was showing a rate of 60 electrical activity but bigeminy and a heart rate of 33. She was awake and conversive. At the time we did EKG, she appears to be in A. fib with a rate of 55. The daughter states she chronically has a low heart rate in the 50s. She does not appear to have a history of A. fib according to her most recent cardiology note. She has a history of congestive heart failure with preserved ejection fraction, and she appears to be on no AV chevy blockers. Plan will be for admission. Lab Data Attestation: I reviewed the patient's lab results. Labs: Laboratory Results - last 24 hr 03/27/21 03/27/21 23:59 23:59 WBC 8.4 RBC 3.22 L Hgb 10.2 L Hct 31.3 L MCV 97.2 MCH 31.7 MCHC 32.6 RDW Std Deviation 44.4 H RDW Coeff of Alanna 12.5 Plt Count 260 MPV 10.3 Immature Gran % (Auto) 0.400 Neut % (Auto) 56.9 Lymph % (Auto) 33.8 Dawson % (Auto) 7.2 Eos % (Auto) 1.1 Baso % (Auto) 0.6 Absolute Neuts (auto) 4.8 Absolute Lymphs (auto) 2.85 Nucleated RBC % 0 Sodium 140 Potassium 3.5 Chloride 103 Carbon Dioxide 26.0 Anion Gap 11 BUN 44 H Creatinine 4.55 H Estim Creat Clear Calc 7.57 Est GFR (MDRD) Af Amer 12 L Est GFR (MDRD) Non-Af 10 L BUN/Creatinine Ratio 9.7 L Glucose 214 H Calcium 8.0 L Troponin I High Sens 23 EKG Initial EKG: Attestation: I personally reviewed and interpreted this EKG as follows: Interpretation: No Acute Injury Pattern and Atrial Fibrillation (With rate 55) Comments: Prolonged QTC Discharge Plan Triage Chief Complaint: Syncope Other Complaint: Chest Other ED Provider: Momo Beasley Dx/Rx/DC Orders Clinical Impression: Recurrent syncope Prescriptions: No Action amlodipine 10 mg tablet 10 mg PO DAILY RF: 0 omeprazole 40 mg capsule,delayed release(DR/EC) 40 mg PO DAILY RF: 0 ergocalciferol (vitamin D2) 50,000 unit capsule 50,000 unit PO QWEEK RF: 0 citalopram 40 mg tablet 40 mg PO DAILY RF: 0 atorvastatin 80 mg tablet 80 mg PO QHS RF: 0 insulin glargine 100 unit/mL (3 mL) insulin pen 28 unit SC DAILY RF: 0 cyanocobalamin (vitamin B-12) [Vitamin B-12] 2,500 mcg tablet, sublingual 2,500 mcg SUBLINGUAL DAILY RF: 0 acetaminophen 500 mg tablet 500 mg PO Q6H PRNRF: 0 aspirin 81 mg tablet,chewable 81 mg PO DAILY RF: 0 albuterol sulfate 90 mcg/actuation HFA aerosol inhaler 2 puff INHALATION Q4H PRNRF: 0 ferrous sulfate 325 mg (65 mg iron) tablet 325 mg PO BID RF: 0 glipizide 5 mg tablet 5 mg PO DAILY RF: 0 latanoprost 0.005 % drops 1 drp OPHTHALMIC BID RF: 0 levothyroxine 137 mcg tablet 137 mcg PO DAILY RF: 0 furosemide 20 mg tablet 20 mg PO DAILY PRN (Reason: shortness of breath) RF: 0 niacin [Niaspan Extended-Release] 500 mg tablet extended release 24 hr 500 mg PO DAILY RF: 0 clonidine HCl 0.2 mg tablet 0.2 mg PO BID RF: 0 biotin 5 mg capsule 5 mg PO DAILY RF: 0 calcitriol 0.25 mcg capsule 0.25 mcg PO .COMPLEX RF: 0 folic acid 400 mcg tablet 0.4 mg PO DAILY RF: 0 montelukast 10 mg tablet 10 mg PO DAILY RF: 0 calcium carbonate 600 mg calcium (1,500 mg) tablet 600 mg PO DAILY RF: 0 magnesium oxide 400 mg magnesium tablet 400 mg PO DAILY RF: 0 losartan 100 mg tablet 100 mg PO DAILY RF: 0 carvedilol 3.125 mg tablet 3.125 mg PO BID Qty: 60 RF: 11 hydralazine 25 mg tablet 100 mg PO TID Qty: 360 RF: 11 Primary Care Provider: Care Physician,No Primary Referrals: Care Physician,No Primary [Primary Care Provider] - Disposition Disposition: Acute Care Hospital [facility]
[2021-03-28 00:54] LABS: Anion Gap 11 (5-15); BUN 44 mg/dL (7-18); BUN/Creat Ratio 9.7 RATIO (10-20); Chloride 103 mmol/L (98-107); Creatinine, Serum 4.55 mg/dL (0.55-1.02); EST Glomerular Filtration Rate 10 mL/min (>60); Est Glom Filt Rate - Afr Amer 12 mL/min (>60); Estimated Creatinine Clearance 7.57 ml/min; Glucose 214 mg/dL (74-106); Potassium 3.5 mmol/L (3.5-5.1); Sodium Level 140 mmol/L (136-145); Troponin-I HS 23 pg/mL (3.0-54.0)
[2021-03-28] MEDS: 0.9% Normal Saline 1,000 ML 150 ML IV (00:55)
--- NOTE | 2021-03-28 03:27 | CDU_ITS ---
Reason For Study: SYNCOPE Rt. Velocities/BP Lt. Velocities/BP Prox CCA 59.4/13.8 cm/sec. Prox CCA 86.4/10.6 cm/sec. Mid CCA 64.7/15.1 cm/sec. Mid CCA 108.4/16.1 cm/sec. Dist CCA 67.3/0.0 cm/sec. Dist CCA 90.8/18.3 cm/sec. Prox ICA 81.5/19.0 cm/sec. Prox ICA 208.6/43.0 cm/sec. Mid ICA 64.6/17.7 cm/sec. Mid ICA 211.2/24.8 cm/sec. Dist ICA 90.6/26.8 cm/sec. Dist ICA 118.0/24.8 cm/sec. Rt. ICA/CCA = 90.6/67.3=1.3. Lt. ICA/CCA = 211.2/108.4=1.9. Prox ECA 63.3/0.0 cm/sec. Prox ECA 120.6/0.0 cm/sec. Rt. Vert. 32.7/11.0 cm/sec. Lt. Vert. 74.0/17.1 cm/sec. Right Extracranial There is homogeneous, smooth atherosclerotic plaque noted in the right common carotid artery. There is homogeneous, irregular atherosclerotic plaque noted in the right internal carotid artery. The distal right internal carotid artery is not well visualized. There is intimal thickening but no significant atherosclerotic plaque noted in the right external carotid artery. Antegrade flow is noted in the right vertebral artery. Left Extracranial There is homogeneous, smooth atherosclerotic plaque noted in the left common carotid artery. There is heterogeneous, irregular atherosclerotic plaque noted in the left internal carotid artery. There is heterogeneous, smooth atherosclerotic plaque noted in the left external carotid artery. Antegrade flow is noted in the left vertebral artery. Procedure Carotid Duplex 18980. This is a Carotid Duplex examination using B-mode, color flow and specral Doppler. The study was technically difficult. PT had difficulty cooperating, seemed confused and unable to lie still. Exam performed portable in patient room. VL/Carotid Duplex Ultrasound Interpretation Summary Irregular plaque at the proximal right internal carotid artery with the distal right internal carotid poorly visualized. Less than 50% stenosis right internal carotid artery Less than 50% stenosis right external carotid artery Irregular calcific plaque with shadowing at the proximal left internal carotid artery with 50 to 69% stenosis. Less than 50% stenosis left external carotid artery Patent and antegrade vertebral arteries bilaterally The exam was noted to be technically difficult as the patient was unable to lie still Ordering Physician: Radha Oden Referring Physician: FABRICIO PCP Performed By: Tracy Hand RDCS, RVT
--- NOTE | 2021-03-28 04:28 | HP.PCM.HOS_ITS ---
HPI - General General Date of Admission: 03/28/21 Date of Service: 03/28/21 Chief Complaint: Syncope HPI Narrative Chalino WHELAN, is a 81 F who presented to the department [facility] on 03/27/2021 with a chief complaint of syncope. Her pakkigbp-js-jjc is at bedside and assists with her history. Both the patient and her zbzkbmyn-rw-yyo indicate that she is having some syncopal episodes intermittently over the last 3 to 4 weeks but this week has been significantly worse with the most recent syncopal episode being today. Loss of consciousness lasts from 15 to 20 seconds. She has no loss of bowel and bladder function following or during. Her mental status returns quickly to baseline following these episodes. The most recent episode happened this afternoon my she was in the bathroom and lasted approximately 15 seconds. She has a known history of left sided carotid artery stenosis, nonobstructive coronary disease and it appears her baseline rhythm is junctional with rates in the 50s. Her xpxtzour-ks-des does indicate that they check her pulse daily because of her need for peritoneal dialysis and that her baseline heart rates are in the upper 40s to 50s typically. She is on carvedilol 3.125 at baseline. She follows with Dr. Nelson for cardiology. Her vital signs in the emergency department are overall unremarkable other than her bradycardia with heart rates of 52-56. Her CBC is overall unimpressive other than a mild chronic anemia with a hemoglobin of 10.2. Her BMP is stable showing normal electrolytes and elevated BUN and creatinine which are at her baseline, serum glucose of 214 and a high-sensitivity troponin of 23. Her EKG showed a junctional escape rhythm with no signs of ST-T wave elevation or changes in differential give of acute ischemia. Upon my evaluation she did have some intermittent very short runs of VT but was asymptomatic at these times. Evidently she did have an episode in the squad in which her heart rate dropped into the 30s and she was given atropine but has been otherwise stable in the emergency department. FOR[facility]LY [facility] Medical History Asthma Atherosclerosis of coronary artery of [place] heart without angina pectoris Bilateral carotid artery stenosis Chronic diastolic CHF (congestive heart failure) Essential hypertension GERD (gastroesophageal reflux disease) Glaucoma Hyperlipidemia Hyperparathyroidism, secondary renal Hypothyroidism Lichenification and lichen simplex chronicus Major depressive disorder Neurodermatitis Non-proliferative diabetic retinopathy, both eyes Nonobstructive atherosclerosis of coronary artery Normocytic anemia Nummular eczema Obesity Stage 3 chronic kidney disease Stenosis of left carotid artery Type II diabetes mellitus Vitamin B 12 deficiency Home Medications acetaminophen 500 mg tablet 500 mg PO Q6H PRN 10/12/18 [History Last Taken Unknown] amlodipine 10 mg tablet 10 mg PO DAILY 10/12/18 [History Last Taken Unknown] aspirin 81 mg chewable tablet 81 mg PO DAILY 10/12/18 [History Last Taken Unknown] atorvastatin 80 mg tablet 80 mg PO QHS 10/12/18 [History Last Taken Unknown] citalopram 40 mg tablet 40 mg PO DAILY tab 10/12/18 [History Last Taken Unknown] cyanocobalamin (vitamin B-12) 2,500 mcg sublingual tablet 2,500 mcg SUBLINGUAL DAILY 10/12/18 [History Last Taken Unknown] ergocalciferol (vitamin D2) 1,250 mcg (50,000 unit) capsule 50,000 unit PO QWEEK 10/12/18 [History Last Taken Unknown] omeprazole 40 mg capsule,delayed release 40 mg PO DAILY 10/12/18 [History Last Taken Unknown] albuterol sulfate 90 mcg/actuation aerosol inhaler 2 puff INHALATION Q4H PRN g 10/13/18 [History Last Taken Unknown] ferrous sulfate 325 mg (65 mg iron) tablet 325 mg PO BID tab 10/13/18 [History Last Taken Unknown] glipizide 5 mg tablet 5 mg PO DAILY tab 12/22/18 [History Last Taken Unknown] calcitriol 0.25 mcg capsule 0.25 mcg PO .COMPLEX cap 10/26/19 [History Last Ta hansel Unknown] calcium carbonate 600 mg calcium (1,500 mg) tablet 600 mg PO DAILY 10/26/19 [History Last Taken Unknown] furosemide 20 mg tablet 20 mg PO DAILY PRN tab 10/26/19 [History Last Taken Unknown] latanoprost 0.005 % eye drops 1 drp OPHTHALMIC BID ml 10/26/19 [History Last Taken Unknown] levothyroxine 137 mcg tablet 137 mcg PO DAILY tab 10/26/19 [History Last Taken Unknown] montelukast 10 mg tablet 10 mg PO DAILY 10/26/19 [History Last Taken Unknown] niacin 500 mg tablet,extended release 24 hr 500 mg PO DAILY tab 10/26/19 [History Last Taken Unknown] magnesium oxide 400 mg PO DAILY 08/15/20 [History Last Taken Unknown] carvedilol 3.125 mg tablet 3.125 mg PO BID #60 tab 11/22/20 [Rx Last Taken Unknown] clonidine HCl 0.2 mg tablet 0.2 mg PO BID tab 11/22/20 [History Last Taken Unk nown] losartan 100 mg tablet 100 mg PO DAILY 11/22/20 [History Last Taken Unknown] brimonidine 1 drp EACH EYE DAILY 03/28/21 [History Last Taken Unknown] fluticasone propionate [Flovent HFA] 1 puff INHALATION BID 03/28/21 [History Last Taken Unknown] hydralazine 75 mg PO TID 03/28/21 [History Last Taken Unknown] insulin glargine [Lantus Solostar U-100 Insulin] 8 unit SUBCUT BID 03/28/21 [History Last Taken Unknown] ipratropium-albuterol 3 ml INHALATION Q6H 03/28/21 [History Last Taken Unknown] pioglitazone 15 mg PO DAILY 03/28/21 [History Last Taken Unknown] Allergy/AdvReac Type Severity Reaction Status Date / Time metformin [From Glucophage] Allergy Severe renal Verified 03/27/21 23:50 failure adhesive Allergy Intermediate blisters Verified 03/27/21 23:50 oxycodone Allergy Intermediate hallucinati Verified 03/27/21 23:50 ons tramadol Allergy Intermediate Vomiting Verified 03/27/21 23:50 ERIC Inhibitors AdvReac Intermediate cough Verified 03/27/21 23:50 Family History Father Heart disease Hypertension Suicide Mother Hypertension CVA (cerebral vascular accident) COPD (chronic obstructive pulmonary disease) CAD (coronary artery disease) Surgical History History of bilateral knee replacement (1989) History of breast biopsy History of left heart catheterization (2015) History of open reduction and internal fixation (ORIF) procedure History of right cataract extraction (10/03/11) History of tonsillectomy Social History Smoking Status: Never smoker alcohol intake: never substance use type: does not use caffeine: Yes Type: coffee Number of servings: 2 ROS Constitutional Constitutional: Denies anorexia, change in weight, chills, fatigue, fever(s), malaise, night sweats, weakness or other Eyes Eyes: Denies blurry vision, change in eye color, change in vision, discharge from eye(s), double vision, erythema, eye pain, loss of vision or other ENT HEENT: Denies abnormal hearing, dysphagia, ear pain, epistaxis, headache(s), hearing loss, nasal congestion, nasal discharge, post nasal drip, sinus pressure, sore throat or other Cardiovascular Cardiovascular: Reports syncope; Denies chest pain, claudication, dyspnea on exertion, edema, lightheadedness, orthopnea, palpitations, paroxysmal nocturnal dyspnea, rapid heart rate or other Respiratory/Chest Respiratory/Chest: Denies cough, dyspnea, excessive phlegm production, hemoptysis, productive cough, shortness of breath at rest, shortness of breath with exertion, wheezing or other Gastrointestinal Gastrointestinal: Denies abdominal pain, coffee ground emesis, constipation, diarrhea, dyspepsia, hematemesis, hematochezia, loose stools, melena, nausea, vomiting or other Genitourinary Genitourinary: Denies burning urination, difficulty urinating, dysuria, hematuria, nocturia, urinary frequency, urinary hesitancy, urinary incontinence, urinary urgency or other Musculoskeletal Musculoskeletal: Denies arthralgias, back pain, joint pain, joint stiffness, joint swelling, myalgias, neck pain or other Neurologic Neurologic: Denies abnormal gait, abnormal speech, confusion, disequilibrium, dizziness, focal weakness, headache(s), numbness, paresthesias, seizure-like activity, seizures, syncope, tingling, tremor(s) or other Psychiatric Psychiatric: Denies anxiety, depression, homicidal ideation, suicidal ideation or other Endocrine Endocrinology: Denies change in body appearance, cold intolerance, excessive sweating, heat intolerance, polydipsia, polyuria or other Hematologic/Lymphatic Hematologic/Lymphatic: Denies anemia, easy bleeding, easy bruising, lymphadenopathy or other Allergic/Immunologic Allergic/Immunologic: Denies rhinitis, hives, eczemia, asthma or other Vital Signs Vital Signs Vital Signs: 03/27/21 23:46 03/28/21 00:53 03/28/21 00:54 Temperature 97.9 F Temperature Source Oral Pulse Rate 84 Respiratory Rate 25 H Respiratory Effort Normal Blood Pressure 179/102 H Blood Pressure Mean 127 Pulse Ox 99 98 Oxygen Delivery Method Room Air Nasal Cannula Oxygen Flow Rate (L/min) 2 03/28/21 02:16 03/28/21 03:08 03/28/21 03:53 Temperature 97.9 F Temperature Source Oral Pulse Rate 56 L 52 L 55 L Respiratory Rate 20 H 21 H 12 Respiratory Effort Blood Pressure 129/84 H 136/82 H Blood Pressure Mean 99 100 Pulse Ox 98 100 99 Oxygen Delivery Method Room Air Room Air Room Air Oxygen Flow Rate (L/min) Weight Weight: 96.4 kg Body Mass Index (BMI) 40.1 Physical Exam Const alert, oriented x3, no apparent distress and well nourished Constitutional Narrative: Sleepy and mildly confused, obese elderly white female lying in bed, appropriate interaction, irtilfox-ke-dfy at bedside, nontoxic General Appearance: cooperative HEENT normocephalic, head/scalp atraumatic and moist oral mucous membranes HEENT Narrative: Mild GRAYLING, Mallampati 3, no thrush Eyes PERRL, EOMs intact bilaterally and conjunctivae normal Eyes Narrative: No scleral icterus Neck no lymphadenopathy, supple, no JVD and no carotid bruits Neck Narrative: Trachea midline, no thyroid enlargement Resp normal respiratory effort, no retractions, no use of accessory muscles and clear to auscultation bilaterally Auscultation: crackles, rales, rhonchi and wheezes Cardio S1 normal heart sound, S2 normal heart sound, no murmurs, no rub, no gallops, no clicks and no JVD Cardio Narrative: Bradycardia with intermittent ectopy GI normal to inspection, nondistended, normoactive bowel sounds, soft to palpation, non-tender and non-distended Extremity no clubbing, cyanosis or edema Peripheral Pulses: Yes pulses 2+ throughout Skin no rashes or lesions noted, no wounds, skin turgor normal, no jaundice, no petechiae and no mottling Neuro oriented x3, CN's II-XII intact bilaterally, moves all extremities and no focal motor deficits Neuro Narrative: Generalized weakness proximal greater than distal Sensorium / Orientation: awake and alert Speech: speech normal Psych affect normal Results Lab / Micro Data Attestation: I reviewed the patient's lab results. Result Diagrams: 03/27/21 23:59 03/27/21 23:59 Labs: Laboratory Results - last 24 hr 03/27/21 23:59: WBC 8.4, RBC 3.22 L, Hgb 10.2 L, Hct 31.3 L, MCV 97.2, MCH 31.7, MCHC 32.6, RDW Std Deviation 44.4 H, RDW Coeff of Alanna 12.5, Plt Count 260, MPV 10.3, Immature Gran % (Auto) 0.400, Neut % (Auto) 56.9, Lymph % (Auto) 33.8, Mcculloch % (Auto) 7.2, Eos % (Auto) 1.1, Baso % (Auto) 0.6, Absolute Neuts (auto) 4.8, Absolute Lymphs (auto) 2.85, Nucleated RBC % 0 03/27/21 23:59: Sodium 140, Potassium 3.5, Chloride 103, Carbon Dioxide 26.0, Anion Gap 11, BUN 44 H, Creatinine 4.55 H, Estim Creat Clear Calc 7.57, Est GFR (MDRD) Af Amer 12 L, Est GFR (MDRD) Non-Af 10 L, BUN/Creatinine Ratio 9.7 L, Glucose 214 H, Calcium 8.0 L, Troponin I High Sens 23 Assessment & Plan Assessment/Plan (1) Ventricular tachycardia: (2) Recurrent syncope: PLAN: Recurrent syncope -Patient has had issues with this approximately for 1 month now -During my evaluation had short runs of VT -Suspect that her syncope issues may be related to this -Patient does have chronic bradycardia and it appears is intermittently in a junctional rhythm per cardiology's documentation as an outpatient -Check echocardiogram -Patient with history of carotid stenosis--> check carotid Dopplers--> last done in 2019 -EKG shows junctional rhythm with intermittent sinus beats -Cycle cardiac enzymes -Continue beta-jefry but switch to metoprolol given VT--> patient on low-dose Coreg at baseline -Consult cardiology VT -Short runs noted in the emergency department -I am highly suspicious that this may be the etiology that is causing her syncopal episodes -Patient with history of nonobstructive coronary disease -Check echocardiogram -? Need for reevaluation of coronary arteries -Will make n.p.o. at this time in case there is a need for evaluation of coronary arteries with [facility] -Cycle cardiac enzymes -Beta blockade -Consider amiodarone if recurrent -Consult cardiology--> will discuss with him History of bradycardia with junctional rhythm -Appears that this is chronic for her -We will check TSH -With VT continue low-dose beta-jefry History of left carotid artery stenosis -Check Dopplers with syncopal presentation DM-2 -Hold home oral antihyperglycemic's -Continue home Lantus 8 units twice daily -Moderate dose SSI -Accu-Cheks -Hemoglobin A1c Nonobstructive coronary artery disease -Continue aspirin -Consult cardiology for further evaluation given presentation Hypothyroidism -Continue levothyroxine -TSH Hypertension -Continue losartan -continue hydralazine -Continue home clonidine -Continue home amlodipine -Continue home beta-jefry but convert from carvedilol 3.125 to metoprolol 25 mg twice daily with VT Hyperlipidemia -Continue atorvastatin -Check lipids Chronic normocytic anemia -Hemoglobin stable at 10.2 -Likely related to renal disease -Continue home oral iron supplementation GERD -Continue home PPI Vitamin D deficiency -Restart ergocalciferol and discharge End-stage renal disease -On PD at baseline -Consult nephrology Depression -Continue citalopram Morbid obesity -BMI 40.2 -Recommend weight loss -Complicates overall medical care DVT prophylaxis -Heparin CODE STATUS -Full code verified the emergency department with family at bedside(daughter in law) Charges/Coding Visit Charges Inpatient E&M: 43474 Init Hosp L3
[2021-03-28] MEDS: Metoprolol Tartrate 25 MG Tablet PO (05:22)
--- NOTE | 2021-03-28 05:46 | PCM.HOSP.N ---
Hospitalist Note Patient with more frequent intermittent polymorphic VT and having mild intermittent mental status change associated with this. I reviewed the case with Dr. Nelson and his suspicion is that she is developing polymorphic VT related to prolonged QTC that was greater 600 on her initial EKG. He wanted her beta-jefry to be discontinued and to start dopamine at 5 mics without titration to increase her heart rate and decrease her QTC. It is also noted that she is on citalopram at baseline and we will discontinue this at this time as it can cause QTC prolongation. Goal magnesium is greater than 2. Stat magnesium level is pending and 2 g IV bolus was given. Goal potassium level is greater than 4 with current potassium at 3.5. Potassium bolus at 40 mEq was given. She will have a repeat BMP level soon is both are infused. Dr. Nelson stated he would see her soon. Cortext of initial EKG and rhythm strips were sent to Dr. Hassan as well.
--- NOTE | 2021-03-28 05:55 | ECHOCS_ITS ---
Version 3 Reason For Study: Syncope/Near Syncope Procedure This was a 2D Doppler, Color Flow transthoracic echocardiogram. Contrast injection was performed. Exam performed portable in patient room. Left Ventricle Normal LV size. Left ventricular systolic function is normal. The estimated ejection fraction is 55 %. No regional wall motion abnormalities noted. Right Ventricle Normal RV size. Normal systolic function. Atria Normal left atrium. Normal right atrium. Mitral Valve Mild diffuse mitral valve calcification. Tricuspid Valve Normal tricuspid valve. Mild (1+) tricuspid valve insufficiency. Pulmonary artery systolic pressure is 48 mmHg. Aortic Valve Trisinus/trileaflet aortic valve. Pulmonic Valve Normal pulmonic valve. Great Vessels Normal aortic root. The pulmonary artery is normal size. Normal inferior vena cava. Pericardium/Pleural No pericardial effusion. Medication Diluted definity 2ml given slow IV push to enhance endocardial definition. MMode/2D Measurements & Calculations LVIDd: 4.8 cm IVSd: 1.1 cm Ao root diam: 2.8 cm LVIDs: 3.3 cm LVPWd: 1.2 cm RVDd: 3.6 cm FS: 32.1 % LAV(MOD-bp): 53.2 ml LA A4 area: 19.2 cm2 LA dimension(2D): 4.9 cm LAV(MOD-bp) Indexed: 27.9 ml/m2 LAV(MOD-sp2): 47.0 ml LAV(MOD-sp4): 50.7 ml RA A4 area: 18.1 cm2 Doppler Measurements & Calculations MV E max bobby: 120.3 cm/sec Lat Peak E' Bobby: 8.5 cm/sec Med Peak E' Bobby: 6.4 cm/sec MV A max bobby: 84.0 cm/sec E/E' lat: 14.2 E/E' med: 18.8 MV E/A: 1.4 Ao V2 max: 148.0 cm/sec LV V1 max: 95.0 cm/sec PA V2 max: 92.1 cm/sec Ao max P.8 mmHg LV V1 max P.6 mmHg Ao V2 mean: 104.8 cm/sec Ao mean P.8 mmHg Ao V2 VTI: 42.6 cm TR max bobby: 329.0 cm/sec TR max P.3 mmHg ECHO/Echo Complete W/ Contrast Interpretation Summary Normal LV size. Left ventricular systolic function is normal. The estimated ejection fraction is 55 %. Mild diffuse mitral valve calcification. Pulmonary artery systolic pressure is 48 mmHg. Contrast injection was performed. Ordering Physician: Radha Oden Performed By: Angela Pyle RDCS, RVT
[2021-03-28 05:56] LABS: Absolute Lymphocyte Count 2.15 X10^3/uL (0.83-4.51); Absolute Neutrophil Count 5.1 X10^3/uL (2.0-7.7); Basophil# 0.03 X10^3/uL; Basophil% 0.4 % (0-1); Eosinophil# 0.04 X10^3/uL; Eosinophils% 0.5 % (0-5); Hematocrit 27.1 % (37-47); Hemoglobin 8.8 g/dL (12.0-15.0); Lymphocyte # 2.15 X10^3/ul (0.83-4.51); Lymphocyte % 27.3 % (19-41); Mean Corp Hgb Conc 32.5 g/dL (32-36); Mean Corpuscular Hgb 32.1 pg (27.0-32.0); Mean Corpuscular Volume 98.9 fL (81-99); Mean Platelet Vol. 9.8 fl (6.2-12.0); Monocyte# 0.55 X10^3/uL; NRBC Flagged by Analyzer 0 % (0-5); Neutrophil # 5.08 X10^3/uL (2.7-7.7); Neutrophil % 64.4 % (47-70); Platelet Count 225 K/mm3 (150-450); RBC Distribution Width CV 12.5 % (11.6-14.6); RBC Distribution Width SD 45.1 fl (35.1-43.9); Red Blood Count 2.74 M/mm3 (4.2-5.4); White Blood Count 7.9 K/mm3 (4.4-11.0)
[2021-03-28] MEDS: 0.9% Saline Lock 10 ML Syringe IV ×3 (06:04→23:16)
[2021-03-28 06:12] LABS: Troponin-I HS 62 pg/mL (3.0-54.0)
[2021-03-28] MEDS: DOPamine IV 800 MG/250 ML IV.SOLN. 8.7 MG CONT INF (06:30)
[2021-03-28] MEDS: Potassium Chloride 10mEq/100mL 10 MEQ/100 ML IV.SOLN. 100 MEQ IV BOLUS (06:35)
[2021-03-28 06:36] LABS: Bedside Glucose 155 mg/dL (70-110)
--- NOTE | 2021-03-28 06:52 | EKG12_ITS ---
Test Reason : SVT Blood Pressure : / mmHG Vent. Rate : 065 BPM Atrial Rate : 122 BPM P-R Int : 000 ms QRS Dur : 102 ms QT Int : 510 ms P-R-T Axes : 061 016 051 degrees QTc Int : 530 ms Normal sinus rhythm Low voltage QRS Nonspecific ST and T wave abnormality Prolonged QT Abnormal ECG When compared with ECG of 28-MAR-2021 01:10, MANUAL COMPARISON REQUIRED, DATA IS UNCONFIRMED Confirmed by ANTONIETA TAYLOR, SHANA ([id number]), writer editor SONYA PRASAD ([id number]) on 03/29/2021 10:13:40 AM Referred By: SANDRA Confirmed By:SHANA FUNG MD
[2021-03-28 06:55] LABS: ALB/GLOB Ratio 0.4 RATIO (0.9-2.4); AST(SGOT) 15 U/L (15-37); Alanine Aminotransfer ALT/SGPT 12 U/L (13-56); Albumin, Serum 1.3 g/dL (3.2-5.0); Alkaline Phosphatase 71 U/L (45-117); Anion Gap 10 (5-15); BUN 43 mg/dL (7-18); BUN/Creat Ratio 8.9 RATIO (10-20); Calcium,Total 7.4 mg/dL (8.5-10.1); Chloride 105 mmol/L (98-107); Creatinine, Serum 4.85 mg/dL (0.55-1.02); EST Glomerular Filtration Rate 9 mL/min (>60); Est Glom Filt Rate - Afr Amer 11 mL/min (>60); Globulin 3.6 g/dL (2.2-4.2); Glucose 172 mg/dL (74-106); Potassium 3.5 mmol/L (3.5-5.1); Protein, Total 4.9 g/dL (6.4-8.2); Sodium Level 141 mmol/L (136-145); Thyroid Stim Hormone (TSH) 1.08 uIU/mL (0.358-3.74)
[2021-03-28] MEDS: proMETHazine 25 MG/ML Syringe 12.5 MG IM (07:01)
[2021-03-28] MEDS: Aspirin 81 MG TAB.CHEW PO (07:13)
--- NOTE | 2021-03-28 07:15 | CON.PCM.CA_ITS ---
Assessment & Plan Assessment/Plan (1) Ventricular tachycardia: PLAN: Patient appears to be having polymorphic ventricular tachycardia associated with a prolonged QT interval. Her initial EKG actually demonstrated sinus bradycardia with a prolonged QT interval of 688 ms. She was given intravenous magnesium 2 g bolus as well as potassium trying to get her potassium over 4. We did try her on low-dose dopamine to increase her heart rate but it appears that she was rather sensitive to this and went into a supraventricular tachyarrhythmia. We will try a lower dose at 2.5 mics. We will need to exclude coronary ischemia as a potential etiology. Addendum: Cardiac catheterization performed today demonstrates mild coronary artery disease no obstructive lesions noted. Preserved left ventricular systolic function by echocardiogram. (2) Recurrent syncope: PLAN: She has had recurrent syncopal episodes. The etiology of this was unclear but I do not think that this is a bradycardia arrhythmic episode and that it may be secondary to the torsade. We should discontinue the beta-jefry and any offending agents which may cause prolongation of the QT interval. (3) Essential hypertension: PLAN: Continue with aggressive blood pressure management. (4) Peritoneal dialysis status: PLAN: She will continue her peritoneal dialysis as before. Thank you for allowing me to participate in the care of your patient. Please don't hesitate to call if any issues arise. HPI Consult Data Date of Consult: 03/28/21 HPI Narrative HPI Narrative: Chalino WHELAN, is a 81 F who presents to the emergency room from recurrent syncope. She apparently went to the bathroom with her daughter around and she had a near syncopal episode. She is apparently had a few of these episodes over the last few weeks. She called emergency medical squad who found her to be in sinus bradycardia. She was admitted to the hospital through the emergency room blood work was unremarkable other than mild anemia and atrial fibrillation with a controlled ventricular response rate. While on the telemetry unit she started developing polymorphic VT and I was called for further evaluation and management. Review of her EKG demonstrated that she was in sinus rhythm with a very prolonged QT interval. She was started on intravenous magnesium, potassium was corrected and low-dose dopamine. She did unfortunately go into a wide-complex tachycardia and then a narrow complex sup raventricular tachycardia and then finally broke into sinus rhythm. She is fairly asymptomatic at this time. She has a past medical history of CKD stage III, heart failure with preserved ejection fraction, hypertension, proteinuria with greater than 2 g/day of proteinuria in October 2017, carotid stenosis with 60 to 79% stenosis in the left internal carotid artery. She had a stress test in July 2018 which was negative for ischemia. Echo showed preserved EF and indeterminate diastolic function. Holter was unremarkable except for PACs and one 4 beat run of atrial tachycardia. She continues to utilize peritoneal dialysis for treatment of her renal dysfunction. She denies chest, arm, jaw, or neck discomfort. She continues with shortness of breath with exertion that improves with rest. She continues with shortness of breath at rest and orthopnea. She denies symptoms of orthopnea, PND, sudden weight gain, or bilateral lower extremity edema. She denies chronic cough. She denies claudication issues. She denies fever or chills. She denies blood in urine, blood in stool, or epistaxis. She denies myalgia. She denies unexplainable fatigue. Her exercise tolerance is stable. [facility] Medical History Asthma Atherosclerosis of coronary artery of [place] heart without angina pectoris Bilateral carotid artery stenosis Chronic diastolic CHF (congestive heart failure) Essential hypertension GERD (gastroesophageal reflux disease) Glaucoma Hyperlipidemia Hyperparathyroidism, secondary renal Hypothyroidism Lichenification and lichen simplex chronicus Major depressive disorder Neurodermatitis Non-proliferative diabetic retinopathy, both eyes Nonobstructive atherosclerosis of coronary artery Normocytic anemia Nummular eczema Obesity Stage 3 chronic kidney disease Stenosis of left carotid artery Type II diabetes mellitus Vitamin B 12 deficiency Home Medications acetaminophen 500 mg tablet 500 mg PO Q6H PRN 10/12/18 [History Last Taken Unknown] amlodipine 10 mg tablet 10 mg PO DAILY 10/12/18 [History Last Taken Unknown] aspirin 81 mg chewable tablet 81 mg PO DAILY 10/12/18 [History Last Taken Unknown] atorvastatin 80 mg tablet 80 mg PO QHS 10/12/18 [History Last Taken Unknown] citalopram 40 mg tablet 40 mg PO DAILY tab 10/12/18 [History Last Taken Unknown] cyanocobalamin (vitamin B-12) 2,500 mcg sublingual tablet 2,500 mcg SUBLINGUAL DAILY 10/12/18 [History Last Taken Unknown] ergocalciferol (vitamin D2) 1,250 mcg (50,000 unit) capsule 50,000 unit PO QWEEK 10/12/18 [History Last Taken Unknown] omeprazole 40 mg capsule,delayed release 40 mg PO DAILY 10/12/18 [History Last Taken Unknown] albuterol sulfate 90 mcg/actuation aerosol inhaler 2 puff INHALATION Q4H PRN g 10/13/18 [History Last Taken Unknown] ferrous sulfate 325 mg (65 mg iron) tablet 325 mg PO BID tab 10/13/18 [History Last Taken Unknown] glipizide 5 mg tablet 5 mg PO DAILY tab 12/22/18 [History Last Taken Unknown] calcitriol 0.25 mcg capsule 0.25 mcg PO .COMPLEX cap 10/26/19 [History Last Taken Unknown] calcium carbonate 600 mg calcium (1,500 mg) tablet 600 mg PO DAILY 10/26/19 [History Last Taken Unknown] furosemide 20 mg tablet 20 mg PO DAILY PRN tab 10/26/19 [History Last Taken Unknown] latanoprost 0.005 % eye drops 1 drp OPHTHALMIC BID ml 10/26/19 [History Last Taken Unknown] levothyroxine 137 mcg tablet 137 mcg PO DAILY tab 10/26/19 [History Last Taken Unknown] montelukast 10 mg tablet 10 mg PO DAILY 10/26/19 [History Last Taken Unknown] niacin 500 mg tablet,extended release 24 hr 500 mg PO DAILY tab 10/26/19 [History Last Taken Unknown] magnesium oxide 400 mg PO DAILY 08/15/20 [History Last Taken Unknown] carvedilol 3.125 mg tablet 3.125 mg PO BID #60 tab 11/22/20 [Rx Last Taken Unknown] clonidine HCl 0.2 mg tablet 0.2 mg PO BID tab 11/22/20 [History Last Taken Unknown] losartan 100 mg tablet 100 mg PO DAILY 11/22/20 [History Last Taken Unknown] brimonidine 1 drp EACH EYE DAILY 03/28/21 [History Last Taken Unknown] fluticasone propionate [Flovent HFA] 1 puff INHALATION BID 03/28/21 [History Last Taken Unknown] hydralazine 75 mg PO TID 03/28/21 [History Last Taken Unknown] insulin glargine [Lantus Solostar U-100 Insulin] 8 unit SUBCUT BID 03/28/21 [History Last Taken Unknown] ipratropium-albuterol 3 ml INHALATION Q6H 03/28/21 [History Last Taken Unknown] pioglitazone 15 mg PO DAILY 03/28/21 [History Last Taken Unknown] Allergy/AdvReac Type Severity Reaction Status Date / Time metformin [From Glucophage] Allergy Severe renal Verified 03/27/21 23:50 failure adhesive Allergy Intermediate blisters Verified 03/27/21 23:50 oxycodone Allergy Intermediate hallucinati Verified 03/27/21 23:50 ons tramadol Allergy Intermediate Vomiting Verified 03/27/21 23:50 ERIC Inhibitors AdvReac Intermediate cough Verified 03/27/21 23:50 Family History Father Heart disease Hypertension Suicide Mother Hypertension CVA (cerebral vascular accident) COPD (chronic obstructive pulmonary disease) CAD (coronary artery disease) Surgical History History of bilateral knee replacement (1989) History of breast biopsy History of left heart catheterization (2015) History of open reduction and internal fixation (ORIF) procedure History of right cataract extraction (10/03/11) History of tonsillectomy Social History household members: none Smoking Status: Never smoker alcohol intake: never substance use type: does not use caffeine: Yes Type: coffee Number of servings: 2 ROS Constitutional Constitutional: Denies fever(s) or weight loss Eyes Eyes: Reports systems reviewed and no addt'l complaints, except as documented ENT HEENT: Reports systems reviewed and no addt'l complaints, except as documented Cardiovascular Cardiovascular: Denies chest pain at rest, chest pain with activity, dyspnea at rest, dyspnea on exertion, edema, palpitations or paroxysmal nocturnal dyspnea Respiratory/Chest Respiratory/Chest: Denies dyspnea on exertion, productive cough, shortness of breath at rest or shortness of breath with exertion Gastrointestinal Gastrointestinal: Denies change in bowel habits, nausea, vomiting or weight changes Genitourinary Genitourinary: Denies difficulty urinating Musculoskeletal Musculoskeletal: Denies joint stiffness or muscle weakness Integumentary Integumentary: Denies lesions Neurologic Neurologic: Reports dizziness and syncope Psychiatric Psychiatric: Denies anxiety Endocrine Endocrinology: Denies excessive sweating or fatigue Hematologic/Lymphatic Hematologic/Lymphatic: Denies anemia Allergic/Immunologic Allergic/Immunologic: Denies seasonal rhinorrhea Physical Exam Const alert, oriented x3 and no apparent distress General Appearance: cooperative HEENT hearing grossly normal bilaterally Head and Scalp: atraumatic Eyes EOMs intact bilaterally Neck General: normal visual inspection Chest inspection of chest normal and palpation of chest normal Resp normal respiratory effort Auscultation: clear to auscultation bilaterally Cardio regular rate, regular rhythm, S1 normal heart sound and S2 normal heart sound Jugular Venous Distention: JVD GI normal to inspection, nondistended, normoactive bowel sounds Extremity normal capillary refill and no pedal edema Peripheral Pulses: Yes pulses 2+ throughout and femoral pulses present Skin no rashes or lesions noted Neuro oriented x3 and CN's II-XII intact bilaterally Psych Appearance: grossly normal and appropriate Risk Stratification Risk Stratification Applicable: No Objective Data Vital Signs: Vital Signs Temp Pulse Resp BP Pulse Ox 97.9 F 150 H 30 H 139/90 H 100 03/28/21 03:53 03/28/21 06:50 03/28/21 06:45 03/28/21 06:45 03/28/21 06:45 Oxygen Flow Rate (L/min) 2 Oxygen Delivery Method Nasal Cannula Weight: 204 lb 5.896 oz Body Mass Index (BMI) 38.6 Intake & Output: Intake and Output for Last 24 Hours 03/26/21 03/27/21 03/28/21 23:59 23:59 23:59 Intake Total 815.40 / 815.40 Balance 815.40 / 815.40 Lab / Micro Data Result Diagrams: 03/28/21 05:40 03/28/21 05:40 Labs: Laboratory Results - last 24 hr 03/27/21 23:59: WBC 8.4, RBC 3.22 L, Hgb 10.2 L, Hct 31.3 L, MCV 97.2, MCH 31.7, MCHC 32.6, RDW Std Deviation 44.4 H, RDW Coeff of Alanna 12.5, Plt Count 260, MPV 10.3, Immature Gran % (Auto) 0.400, Neut % (Auto) 56.9, Lymph % (Auto) 33.8, [place] % (Auto) 7.2, Eos % (Auto) 1.1, Baso % (Auto) 0.6, Absolute Neuts (auto) 4.8, Absolute Lymphs (auto) 2.85, Nucleated RBC % 0 03/27/21 23:59: Sodium 140, Potassium 3.5, Chloride 103, Carbon Dioxide 26.0, Anion Gap 11, BUN 44 H, Creatinine 4.55 H, Estim Creat Clear Calc 7.57, Est GFR (MDRD) Af Amer 12 L, Est GFR (MDRD) Non-Af 10 L, BUN/Creatinine Ratio 9.7 L, Glucose 214 H, Calcium 8.0 L, Troponin I High Sens 23 03/28/21 05:40: WBC 7.9, RBC 2.74 L, Hgb 8.8 L, Hct 27.1 L, MCV 98.9, MCH 32.1 H , MCHC 32.5, RDW Std Deviation 45.1 H, RDW Coeff of Alanna 12.5, Plt Count 225, MPV 9.8, Immature Gran % (Auto) 0.400, Neut % (Auto) 64.4, Lymph % (Auto) 27.3, [place] % (Auto) 7.0, Eos % (Auto) 0.5, Baso % (Auto) 0.4, Absolute Neuts (auto) 5.1, Absolute Lymphs (auto) 2.15, Nucleated RBC % 0 03/28/21 05:40: Sodium 141, Potassium 3.5, Chloride 105, Carbon Dioxide 26.0, Anion Gap 10, BUN 43 H, Creatinine 4.85 H, Estim Creat Clear Calc 7.10, Est GFR (MDRD) Af Amer 11 L, Est GFR (MDRD) Non-Af 9 L, BUN/Creatinine Ratio 8.9 L, Glucose 172 H, Calcium 7.4 L, Phosphorus 4.0, Magnesium Cancelled, Total Bilirubin 0.20, AST 15, ALT 12 L, Alkaline Phosphatase 71, Total Protein 4.9 L, Albumin 1.3 L, Globulin 3.6, Albumin/Globulin Ratio 0.4 L, TSH 1.08 03/28/21 05:40: Magnesium 2.0, Troponin I High Sens 62 H 03/28/21 06:32: POC Glucose 155 H Cardiology Labs/Tests 03/27/21 23:59: WBC 8.4, RBC 3.22 L, Hgb 10.2 L, Hct 31.3 L, MCV 97.2, MCH 31.7, MCHC 32.6, Plt Count 260, MPV 10.3, Immature Gran % (Auto) 0.400, Neut % (Auto) 56.9, Lymph % (Auto) 33.8, [place] % (Auto) 7.2, Eos % (Auto) 1.1, Baso % (Auto) 0.6, Absolute Neuts (auto) 4.8, Nucleated RBC % 0 03/27/21 23:59: Sodium 140, Potassium 3.5, Chloride 103, Carbon Dioxide 26.0, Anion Gap 11, BUN 44 H, Creatinine 4.55 H, Est GFR (MDRD) Af Amer 12 L, Est GFR (MDRD) Non-Af 10 L, BUN/Creatinine Ratio 9.7 L, Glucose 214 H, Calcium 8.0 L 03/28/21 05:40: WBC 7.9, RBC 2.74 L, Hgb 8.8 L, Hct 27.1 L, MCV 98.9, MCH 32.1 H , MCHC 32.5, Plt Count 225, MPV 9.8, Immature Gran % (Auto) 0.400, Neut % (Auto) 64.4, Lymph % (Auto) 27.3, [place] % (Auto) 7.0, Eos % (Auto) 0.5, Baso % (Auto) 0.4, Absolute Neuts (auto) 5.1, Nucleated RBC % 0 03/28/21 05:40: Sodium 141, Potassium 3.5, Chloride 105, Carbon Dioxide 26.0, Anion Gap 10, BUN 43 H, Creatinine 4.85 H, Est GFR (MDRD) Af Amer 11 L, Est GFR (MDRD) Non-Af 9 L, BUN/Creatinine Ratio 8.9 L, Glucose 172 H, Calcium 7.4 L, Phosphorus 4.0, Magnesium Cancelled, Total Bilirubin 0.20 03/28/21 05:40: Magnesium 2.0 Rhythm: EKG: ECHO: Stress Test: Cardiac Cath: PCI: CT Surgery: Holter monitor: EPS: PPM: CXR: Chest CT Scan:
--- NOTE | 2021-03-28 07:43 | PCS.PANDOC ---
PANDEMIC DOCUMENTATION INITIATED: Date: 11/13/2020 Time: 190
--- NOTE | 2021-03-28 07:43 | NURSING ---
This RN onto shift, received bedside report from Lynn GUTIERREZ. Dr Nelson present in room speaking to pt and daughter in law. Kyle RN and Miriam RN from microbiological lab technician into room, report provided to them and they took pt to microbiological lab technician at 0725.
--- NOTE | 2021-03-28 08:20 | CASEMGMT ---
According to [facility] website, the following are in-network tertiary facilities: [facility], [place], [facility], [facility], [facility], and . Sharri GUTIERREZ CM
--- NOTE | 2021-03-28 09:08 | CL.D_ITS ---
Patient Name: Chalino WHELAN Study Date: 03/28/2021 Performing: Clifford Nelson MD Ht: 61.02 inches 155 cm : 1940 Wt: 205.03 lbs 93 kg Age: 81 Gender: female BSA: 1.91 PROCEDURE(S) PERFORMED [id number])C/COR CLINICAL PROFILE AND INDICATIONS Indications: Cardiac Arrythmia Heart Failure: None Stress/Imaging Stress/Image Study Performed: No CAD Presentations: Symptom unlikely to be ischemic. CONCLUSIONS Non obstructive coronary arteries RECOMMENDATIONS Medical therapy DESCRIPTION OF PROCEDURE The patient arrived to the procedure lab. The risks and benefits of the procedure as well as a full d escription of our services here and current unavailability of surgical backup were fully explained to the patient and/or their significant other prior to the catheterization. The Timeout was completed, verifying the correct patient and procedure. The patient's procedural site was prepped and draped in the usual fashion. Local anesthetic was given subcutaneously to right radial region with Lidocaine 2% . Local anesthetic was given subcutaneously to right radial region with Lidocaine 2%. Using a modifie d Seldinger technique, arterial access was obtained via the right radial artery, a 6Fr sheath was ins erted. Left Coronary Artery selective angiography was performed in multiple views using a 5 Fr. 4.0 Lancing catheter. Right Coronary Artery selective angiography was then performed in multiple views usin g a 5 Fr. JR 5 catheter.The arterial sheath was pulled and a TR Band was applied for hemostasis w/ 13ml air CORONARY ANGIOGRAPHY DOMINANCE: Right Dominant LEFT HEART ASSESSMENT Left Ventricular Ejection Fraction: by Echo 55 % Normal LV wall motion Normal Left Ventricular systolic function LEFT MAIN: No significant disease noted LEFT ANTERIOR DESCENDING ARTERY: Mild luminal irregularities less than 30% CIRCUMFLEX ARTERY: Mild luminal irregularities less than 30% RIGHT CORONARY ARTERY: Mild luminal irregularities COMPLICATIONS No Complications PROCEDURE MEDICATIONS Versed 1 mg IV Fentanyl 50 mcg IV Versed 1 mg IV Oxygen: 2 L/min via nasal cannula Oxygen: 2 L/min via nasal cannula Heparin given IA 03/28/2021 07:58:12 Magnesium Sulfate 2 Gm 03/28/2021 08:24:14 Magnesium Sulfate 2 Gm cont at 52cc/hr 03/28/2021 08:54:27 Potassium Chloride 10 mEq in 100cc NS 03/28/2021 08:55:35 SUMMARY OF HEMODYNAMIC DATA Time AIR REST ECG 07:46:20 AO 158/60 (92) SA 07:57:28 AO 173/57 (97) 08:04:20 AO 132/48 (75) 08:17:36 Art 131/49 (75) 08:30:02 Art 133/54 (80) 08:31:35 ECG 08:52:44 Signed By Clifford Nelson MD On 03/28/2021 9:08:27 AM Clifford Nelson MD
--- NOTE | 2021-03-28 10:26 | PCM.CONS.R ---
Assessment & Plan Assessment/Plan (1) Ventricular tachycardia: (2) Recurrent syncope: (3) ESRD on peritoneal dialysis: (4) Essential hypertension: (5) Chronic anemia: PLAN: Patient was admitted for syncopal episodes and multiple asymptomatic runs of V. tach. Cardiology is following and she had heart cath today showed mild CAD, no obstructive lesions, preserved left ventricular systolic function by echo. Now on dopamine gtt after going into torsades. Etiology of syncope unclear at this time. We will continue to provide peritoneal dialysis support for Ms. Rodriguez. She currently has fluid in her belly but that will be drained once patient is set up with PD this evening by PD RN. Her EDW is 89 kg. Patient appears near euvolemic, will use all 1.5% dianeal solution with PD tonight. Blood pressures acceptable on amlodipine, losartan, and hydralazine. Will follow bp trends. Patient has a history of anemia of chronic disease and receives JOHNNA. Will follow hemoglobin trends. Thank you for allowing us to participate in the care of Ms Banegas. Further orders forthcoming as hospitalization evolves. HPI Consult Data Date of Consult: 03/28/21 HPI Narrative HPI Narrative: Chalino BANEGAS, is a 81yo female with past medical history significant for ESRD on CCPD support, hypertension, chronic anemia, chronic diastolic heart failure who was brought to the emergency room after syncopal event witnessed by family yesterday at home. In the emergency room patient had intermittent multiple short runs of V. tach, asymptomatic, and she was admitted for further evaluation and treatment. We were consulted for management of peritoneal dialysis. Patient had heart cath this morning and was evaluated post cath. She is confused. Her [id number] is at bedside and giving information. No recent issues with peritoneal dialysis. No recent abdominal pain or fevers. No drainage from PD catheter. PD fluid has been clear per [id number]. Patient is compliant with her dialysis. [facility] Medical History Asthma Atherosclerosis of coronary artery of [place] heart without angina pectoris Bilateral carotid artery stenosis Chronic diastolic CHF (congestive heart failure) Essential hypertension GERD (gastroesophageal reflux disease) Glaucoma Hyperlipidemia Hyperparathyroidism, secondary renal Hypothyroidism Lichenification and lichen simplex chronicus Major depressive disorder Neurodermatitis Non-proliferative diabetic retinopathy, both eyes Nonobstructive atherosclerosis of coronary artery Normocytic anemia Nummular eczema Obesity Stage 3 chronic kidney disease Stenosis of left carotid artery Type II diabetes mellitus Vitamin B 12 deficiency Home Medications acetaminophen 500 mg tablet 500 mg PO Q6H PRN 10/12/18 [History Last Taken Unknown] amlodipine 10 mg tablet 10 mg PO DAILY 10/12/18 [History Last Taken Unknown] aspirin 81 mg chewable tablet 81 mg PO DAILY 10/12/18 [History Last Taken Unknown] atorvastatin 80 mg tablet 80 mg PO QHS 10/12/18 [History Last Taken Unknown] citalopram 40 mg tablet 40 mg PO DAILY tab 10/12/18 [History Last Taken Unknown] cyanocobalamin (vitamin B-12) 2,500 mcg sublingual tablet 2,500 mcg SUBLINGUAL DAILY 10/12/18 [History Last Taken Unknown] ergocalciferol (vitamin D2) 1,250 mcg (50,000 unit) capsule 50,000 unit PO QWEEK 10/12/18 [History Last Taken Unknown] omeprazole 40 mg capsule,delayed release 40 mg PO DAILY 10/12/18 [History Last Taken Unknown] albuterol sulfate 90 mcg/actuation aerosol inhaler 2 puff INHALATION Q4H PRN g 10/13/18 [History Last Taken Unknown] ferrous sulfate 325 mg (65 mg iron) tablet 325 mg PO BID tab 10/13/18 [History Last Taken Unknown] glipizide 5 mg tablet 5 mg PO DAILY tab 12/22/18 [History Last Taken Unknown] calcitriol 0.25 mcg capsule 0.25 mcg PO .COMPLEX cap 10/26/19 [History Last Taken Unknown] calcium carbonate 600 mg calcium (1,500 mg) tablet 600 mg PO DAILY 10/26/19 [History Last Taken Unknown] furosemide 20 mg tablet 20 mg PO DAILY PRN tab 10/26/19 [History Last Taken Unknown] latanoprost 0.005 % eye drops 1 drp OPHTHALMIC BID ml 10/26/19 [History Last Taken Unknown] levothyroxine 137 mcg tablet 137 mcg PO DAILY tab 10/26/19 [History Last Taken Unknown] montelukast 10 mg tablet 10 mg PO DAILY 10/26/19 [History Last Taken Unknown] niacin 500 mg tablet,extended release 24 hr 500 mg PO DAILY tab 10/26/19 [History Last Taken Unknown] magnesium oxide 400 mg PO DAILY 08/15/20 [History Last Taken Unknown] carvedilol 3.125 mg tablet 3.125 mg PO BID #60 tab 11/22/20 [Rx Last Taken Unknown] clonidine HCl 0.2 mg tablet 0.2 mg PO BID tab 11/22/20 [History Last Taken Unknown] losartan 100 mg tablet 100 mg PO DAILY 11/22/20 [History Last Taken Unknown] brimonidine 1 drp EACH EYE DAILY 03/28/21 [History Last Taken Unknown] fluticasone propionate [Flovent HFA] 1 puff INHALATION BID 03/28/21 [History Last Taken Unknown] hydralazine 75 mg PO TID 03/28/21 [History Last Taken Unknown] insulin glargine [Lantus Solostar U-100 Insulin] 8 unit SUBCUT BID 03/28/21 [History Last Taken Unknown] ipratropium-albuterol 3 ml INHALATION Q6H 03/28/21 [History Last Taken Unknown] pioglitazone 15 mg PO DAILY 03/28/21 [History Last Taken Unknown] Allergy/AdvReac Type Severity Reaction Status Date / Time metformin [From Glucophage] Allergy Severe renal Verified 03/27/21 23:50 failure adhesive Allergy Intermediate blisters Verified 03/27/21 23:50 oxycodone Allergy Intermediate hallucinati Verified 03/27/21 23:50 ons tramadol Allergy Intermediate Vomiting Verified 03/27/21 23:50 ERIC Inhibitors AdvReac Intermediate cough Verified 03/27/21 23:50 Family History Father Heart disease Hypertension Suicide Mother Hypertension CVA (cerebral vascular accident) COPD (chronic obstructive pulmonary disease) CAD (coronary artery disease) Surgical History History of bilateral knee replacement (1989) History of breast biopsy History of left heart catheterization (2015) History of open reduction and internal fixation (ORIF) procedure History of right cataract extraction (10/03/11) History of tonsillectomy Social History household members: none Smoking Status: Never smoker alcohol intake: never substance use type: does not use caffeine: Yes Type: coffee Number of servings: 2 Physical Exam Narrative Const: Alert to name only, able to follow simple directions. Confused to place and time Cardio: Rhythm and rate regular Resp: Lung sounds clear anteriorly and posteriorly Abdominal: Abdomen soft, rounded, nontender. PD catheter intact with no drainage noted from catheter site. Dressing clean, dry and intact Extremity: No pitting edema to lower legs Lab / Micro Data Result Diagrams: 03/28/21 05:40 03/28/21 05:40 Labs: Laboratory Results - last 24 hr 03/27/21 23:59: WBC 8.4, RBC 3.22 L, Hgb 10.2 L, Hct 31.3 L, MCV 97.2, MCH 31.7, MCHC 32.6, RDW Std Deviation 44.4 H, RDW Coeff of Alanna 12.5, Plt Count 260, MPV 10.3, Immature Gran % (Auto) 0.400, Neut % (Auto) 56.9, Lymph % (Auto) 33.8, [place] % (Auto) 7.2, Eos % (Auto) 1.1, Baso % (Auto) 0.6, Absolute Neuts (auto) 4.8, Absolute Lymphs (auto) 2.85, Nucleated RBC % 0 03/27/21 23:59: Sodium 140, Potassium 3.5, Chloride 103, Carbon Dioxide 26.0, Anion Gap 11, BUN 44 H, Creatinine 4.55 H, Estim Creat Clear Calc 7.57, Est GFR (MDRD) Af Amer 12 L, Est GFR (MDRD) Non-Af 10 L, BUN/Creatinine Ratio 9.7 L, Glucose 214 H, Calcium 8.0 L, Troponin I High Sens 23 03/28/21 05:40: WBC 7.9, RBC 2.74 L, Hgb 8.8 L, Hct 27.1 L, MCV 98.9, MCH 32.1 H, MCHC 32.5, RDW Std Deviation 45.1 H, RDW Coeff of Alanna 12.5, Plt Count 225, MPV 9.8, Immature Gran % (Auto) 0.400, Neut % (Auto) 64.4, Lymph % (Auto) 27.3, [place] % (Auto) 7.0, Eos % (Auto) 0.5, Baso % (Auto) 0.4, Absolute Neuts (auto) 5.1, Absolute Lymphs (auto) 2.15, Nucleated RBC % 0 03/28/21 05:40: Sodium 141, Potassium 3.5, Chloride 105, Carbon Dioxide 26.0, Anion Gap 10, BUN 43 H, Creatinine 4.85 H, Estim Creat Clear Calc 7.10, Est GFR (MDRD) Af Amer 11 L, Est GFR (MDRD) Non-Af 9 L, BUN/Creatinine Ratio 8.9 L, Glucose 172 H, Calcium 7.4 L, Phosphorus 4.0, Magnesium Cancelled, Total Bilirubin 0.20, AST 15, ALT 12 L, Alkaline Phosphatase 71, Total Protein 4.9 L, Albumin 1.3 L, Globulin 3.6, Albumin/Globulin Ratio 0.4 L, TSH 1.08 03/28/21 05:40: Magnesium 2.0, Troponin I High Sens 62 H 03/28/21 06:32: POC Glucose 155 H
[2021-03-28 11:27] LABS: Magnesium 3.1 mg/dL (1.6-2.6)
[2021-03-28 11:32] LABS: Troponin-I HS 72 pg/mL (3.0-54.0)
[2021-03-28 11:34] LABS: Anion Gap 6 (5-15); BUN 43 mg/dL (7-18); BUN/Creat Ratio 9.1 RATIO (10-20); Chloride 103 mmol/L (98-107); Creatinine, Serum 4.71 mg/dL (0.55-1.02); EST Glomerular Filtration Rate 10 mL/min (>60); Est Glom Filt Rate - Afr Amer 12 mL/min (>60); Estimated Creatinine Clearance 7.31 ml/min; Glucose 152 mg/dL (74-106); Sodium Level 139 mmol/L (136-145)
--- NOTE | 2021-03-28 12:44 | NURSING ---
Pt returned from cardiac catheterization technician, bedside report received. Advised by cardiac catheterization technician RN that K riders and magnesium were completed during stay in cardiac catheterization technician.
--- NOTE | 2021-03-28 12:46 | PN.HOSP_ITS ---
Documented by User: Earle RUIZ 03/28/21 12:53 Hospitalist Note Patient is a 81-year-old female who was admitted to [facility] on 03/28/2021 with a chief complaint of syncope. Patient was admitted for evaluation and management of recurrent syncope, observed V. tach in the ED and a history of bradycardia with junctional rhythm. Patient was evaluated by cardiology by catheterization which demonstrated nonobstructive coronary arteries and recommendation was to continue with medical management and observe on medical floor. Patient's home beta-jefry was discontinued. Dopamine infusion was initiated, per cardiology. Will observe overnight. Patient seen by Earle Mcbride PA-C, under the supervision of Dr. Perla. Documented by User: Dr. Castro Perla MD 03/28/21 15:54 Hospitalist Note Seen and examined. Patient admitted with syncope and bradycardia. Was found to have short run of wide-complex tachycardia in ED heart rate 35 blood. Patient started on dopamine drip and had few days of SVT. QTc interval prolonged, 688 ms. Patient was given IV magnesium bolus and potassium. environmental monitoring specialist shows irregular QRS complexes with changing QRS axis, dorsales. Right radial artery cardiac cath access. Discussed with lotus notes administrator. Patient had cardiac cath no obstructive lesion found. Patient had the echo and found preserved LV systolic function. No RWMA. Mild TR, RVSP 48 mmHg Plan: No beta-jefry Conn syndrome jefry. Keep electrolytes potassium magnesium at optimal range. I have wired QT prolonging drugs. Patient is ESRD on peritoneal dialysis. Nephrology is consulted.
[2021-03-28] MEDS: DOPamine IV 800 MG/250 ML IV.SOLN. CONT INF (12:51)
[2021-03-28 13:15] LABS: Troponin-I HS 70 pg/mL (3.0-54.0)
--- NOTE | 2021-03-28 14:05 | CASEMGMT ---
RN CM Assessment: Face to Face with patient for initial transition planning/care coordination assessment. Patient alert and oriented. CCM introduced self and role at [facility]. Care providers, pharmacy, and demographics verified. PCP: Shana Specialists: Yamile- bundler, [place]- cardiology Preferred Pharmacy: [facility] [place] Insurance: [employer] Medicare PPO Prescription Benefit: yes Living Will/HPOA: Patient denies having LW/HPOA and declines information regarding these documents. LNOK: Daughter, Lydia Haas Living Arrangements: Patient lives alone in three story house with one step to enter the home with a railing. Patient reports independent with ADLs prior to hospitalization. Reports 3 falls/possible syncopal episodes in the past 3 weeks. Social: never smoker, denies ETOH use Transportation: Self/daughter DME/HHC: Patient typically ambulates with a cane. Patient also has walker, shower chair and grab bars in home. Current peritoneal dialysis. Patient denies previous HHC. Previous SNF stay at [facility] in 2017. Plan: home with HHC
--- NOTE | 2021-03-28 14:23 | NURSING ---
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
[2021-03-28] MEDS: BRIMONIDINE 0.15% 5 ML Bottle 1 DRP EACH EYE (14:29)
[2021-03-28] MEDS: Magnesium Chloride 64 MG Delay Rel.Tablet 128 MG PO (14:34)
[2021-03-28] MEDS: Ferrous Sulfate 325 MG Tablet PO ×2 (14:34→17:22)
[2021-03-28] MEDS: Montelukast 10 MG Tablet PO (14:34)
[2021-03-28] MEDS: Pantoprazole Sodium 40 MG Tablet PO (14:34)
[2021-03-28] MEDS: Cyanocobalamin 500 MCG Tablet 2500 MCG PO (14:35)
[2021-03-28] MEDS: Levothyroxine 137 MCG Tablet PO (14:35)
[2021-03-28 14:51] LABS: Bedside Glucose 119 mg/dL (70-110)
--- NOTE | 2021-03-28 15:14 | CHAPLAIN ---
Type of Pastoral Visit _x__ Initial Visit ___ Follow-up Visit ___ On-call Visit ___ General Patient Visit ___ Spiritual Assessment ___ Family Conference ___ Bereavement ___ Rapid Response ___ Code Blue ___ Other (describe below) Pastoral Care Referral From _x__ Patient ___ Family ___ Nurse ___ Physician ___ Marketing Specialist ___ Auto Service Instructor ___ Other (describe below) Sacrament/Intervention ___ Active listening ___ Anointing ___ Sabianism ___ Bereavement ___ Communion ___ Kathrine exploration ___ ___ Life review ___ Prayer ___ Reconciliation ___ Sacrament of Sick _x__ Supportive presence ___ Wedding ___ Other (describe below) Pastoral Comments first attempt left a calling card as patient was out of the room; second attempt was a brief visit until amilcar orantes was called elsewhere; pt did not seek anything but stated her goal was to get out and go shopping
[2021-03-28] MEDS: Insulin Lispro 100 UNIT/ML INSULN.PEN SC (16:53)
[2021-03-28 16:55] LABS: Bedside Glucose 158 mg/dL (70-110)
--- NOTE | 2021-03-28 18:04 | DIALYSIS ---
Arrived to start pt on CCPD. Pt became unstable after my arrival. Pt started going in and out of V tach. Dr. Ovalle was notified. Hold carmela lepe.
--- NOTE | 2021-03-28 18:18 | NURSING ---
172-telemetry alarming, pt noted to be in torsades. FINANCIAL SERVICES COUNSELOR and interpersonal communications professor was in room and pressed staff assist. Pt observed in bed alert but not able to breath or speak. Torsades episode lasted from 1725 to 1726.Increased O2 to 10L NC. Pt confused when she came out of torsades and back into junctional rhythm 173-yard switch operator paged Dr Nelson, he will be coming to see pt. Order for 2gm IV mag given and to increase dopamine to 5mcg. Pt going in and out of torsades and junctional rhythm. 1734 Dr Nelson at bedside 1744- v/o given to increase dopamine to 7.5mcg. 1750-v/o from Dr Nelson for isuprel gtt at 2mcg/min and take dopamine off when isuprel is started. Dr Nelson spoke to Dr Perla and decision was made to move pt to ICU. 1819-Daughter in law Kandi betsey.
--- NOTE | 2021-03-28 18:41 | NURSING ---
Addendum entered by Shi See 03/28/21 18:50: pt taken to ICU by RN and AUTOMOTIVE PARTS MANAGER. Original Note: Report called to ICU Ginette RN.
[2021-03-28] MEDS: Ipratropium/Albuterol Sulfate 3 ML AMPUL.NEB INHALATION (19:55)
--- NOTE | 2021-03-28 20:13 | EKG12_ITS ---
Test Reason : Blood Pressure : / mmHG Vent. Rate : 057 BPM Atrial Rate : 026 BPM P-R Int : 000 ms QRS Dur : 090 ms QT Int : 658 ms P-R-T Axes : 000 042 076 degrees QTc Int : 640 ms Atrial fibrillation with slow ventricular response with premature ventricular or aberrantly conducted complexes Low voltage QRS Prolonged QT Abnormal ECG Confirmed by WILL TAYLOR, EDIN ([id number]), sound editor LENNOX MOCTEZUMA ([id number]) on 04/12/2021 8:56:37 AM Referred By: ANTONIETA Confirmed By:EDIN SOLIS MD
--- NOTE | 2021-03-28 20:17 | EKG12_ITS ---
Test Reason : Blood Pressure : / mmHG Vent. Rate : 105 BPM Atrial Rate : 098 BPM P-R Int : 000 ms QRS Dur : 098 ms QT Int : 372 ms P-R-T Axes : 000 -51 103 degrees QTc Int : 491 ms Atrial fibrillation with rapid ventricular response Left axis deviation \ Low voltage QRS RSR' or QR pattern in V1 suggests right ventricular conduction delay Nonspecific ST and T wave abnormality Abnormal ECG Confirmed by WILL TAYLOR, EDIN ([id number]), film editor supervisor LENNOX MOCTEZUMA ([id number]) on 04/12/2021 8:54:15 AM Referred By: ANTONIETA Confirmed By:EDIN SOLIS MD
--- NOTE | 2021-03-28 20:18 | EKG12_ITS ---
Test Reason : Blood Pressure : / mmHG Vent. Rate : 185 BPM Atrial Rate : 197 BPM P-R Int : 000 ms QRS Dur : 162 ms QT Int : 276 ms P-R-T Axes : 000 263 -87 degrees QTc Int : 484 ms Undetermined rhythm :Wide Complex Tachycardia Abnormal ECG Confirmed by WILL TAYLOR, EDIN ([id number]), editorial specialist LENNOX MOCTEZUMA ([id number]) on 04/12/2021 8:55:21 AM Referred By: ANTONIETA Confirmed By:EDIN SOLIS MD
--- NOTE | 2021-03-28 20:37 | EKG12_ITS ---
Test Reason : Blood Pressure : / mmHG Vent. Rate : 051 BPM Atrial Rate : 070 BPM P-R Int : 000 ms QRS Dur : 088 ms QT Int : 678 ms P-R-T Axes : 000 050 074 degrees QTc Int : 624 ms Atrial fibrillation with occasional Premature ventricular complexes Low voltage QRS Prolonged QT Abnormal ECG Confirmed by WILL TAYLOR, EDIN ([id number]), fashion editor LENNOX MOCTEZUMA ([id number]) on 04/12/2021 8:56:02 AM Referred By: ANTONIETA Confirmed By:EDIN SOLIS MD
--- NOTE | 2021-03-28 20:47 | EKG12_ITS ---
Test Reason : REPEAT Blood Pressure : / mmHG Vent. Rate : 094 BPM Atrial Rate : 089 BPM P-R Int : 000 ms QRS Dur : 116 ms QT Int : 430 ms P-R-T Axes : 000 -58 088 degrees QTc Int : 537 ms Atrial fibrillation with premature ventricular or aberrantly conducted complexes Left axis deviation Incomplete right bundle branch block Possible Anterolateral infarct , age undetermined Prolonged QT Abnormal ECG Confirmed by WILL TAYLOR, DEIN ([id number]), marketing editor LENNOX MOCTEZUMA ([id number]) on 04/12/2021 8:52:52 AM Referred By: ANTONIETA Confirmed By:EDIN SOLIS MD
[2021-03-28 21:56] LABS: Bedside Glucose 202 mg/dL (70-110)
--- NOTE | 2021-03-28 22:09 | OP.PCM_ITS ---
Problems Associated Problem List Diagnoses (1) Ventricular tachycardia: Operative Report Date of Procedure: 03/28/21 Placement of a temporary pacemaker via the right femoral vein Indication: Incessant torsade de point despite intravenous magnesium as well as intravenous isoproterenol. Patient was brought to the cardiac catheterization lab in the postabsorptive nonsedated state. 1% Xylocaine was used to anesthetize the right femoral area. The right femoral vein was accessed under Seldinger technique. A 5 Brazilian balloontipped pacemaker wire was advanced under fluoroscopic control and placed in the right ventricular body. Sensing and pacing thresholds were obtained. Adequate position was obtained and the pacemaker was set at a rate of 80 bpm, sensing of 2 mV and the pacing amplitude of 4 mV. The sheath was secured to the thigh and the patient was transferred back to the intensive care unit. No complications were noted.
--- NOTE | 2021-03-28 23:09 | PCM.HOSP.N ---
Hospitalist Note Patient transferred to ICU and placed on isoproterenol with a goal to maintain a heart rate from 80-110. She continued to have intermittent polymorphic VT and then developed sustained polymorphic VT with a heart rate of 180. I was called at this time to reevaluate the patient. I discussed the case with Dr. Nelson and he wanted the patient shocked out of the rhythm. Nursing delivered a 125 J shock as I was in route to the bedside and the patient unfortunately went from VT to PEA arrest. CPR was initiated and she received 1 round of CPR with ROSC. Her mental status improved and she did not require intubation at that time. Given the development of tachycardia her isoproterenol was decreased from 60-30 at which time her heart rate decreased from the 130s into the low 100s. The case was again discussed with Dr. Nelson and he was sent copies of the EKG. He came in and a temporary pacer was placed at this time.
[2021-03-28] MEDS: Latanoprost 0.005% 1 Bottle 1 DRP OPHTHALMIC (23:13)
[2021-03-28] MEDS: HYDROmorphone 0.5 MG/0.5 ML SYRINGE IV (23:16)
[2021-03-29] VITALS (27 sets, daily range): BP systolic 92–150; BP diastolic 53–114; PULSE 60–779; RESP 16–27; TEMP 36–37.2; O2SAT 91–100
[2021-03-29 01:10] LABS: Bedside Glucose 176 mg/dL (70-110)
[2021-03-29 04:40] LABS: Anion Gap 10 (5-15); BUN 45 mg/dL (7-18); BUN/Creat Ratio 8.7 RATIO (10-20); Calcium,Total 7.8 mg/dL (8.5-10.1); Chloride 103 mmol/L (98-107); EST Glomerular Filtration Rate 9 mL/min (>60); Est Glom Filt Rate - Afr Amer 10 mL/min (>60); Estimated Creatinine Clearance 6.62 ml/min; Glucose 172 mg/dL (74-106); Magnesium 3.5 mg/dL (1.6-2.6); Potassium 4.5 mmol/L (3.5-5.1); Sodium Level 137 mmol/L (136-145)
--- NOTE | 2021-03-29 05:53 | EKG12_ITS ---
Test Reason : AM EKG Blood Pressure : / mmHG Vent. Rate : 090 BPM Atrial Rate : 090 BPM P-R Int : 000 ms QRS Dur : 102 ms QT Int : 404 ms P-R-T Axes : 000 -61 094 degrees QTc Int : 494 ms Accelerated Junctional rhythm Left axis deviation Septal infarct , age undetermined Possible Lateral infarct , age undetermined Abnormal ECG Confirmed by WILL TAYLOR, EDIN ([id number]), editor managing newspaper LENNOX MOCTEZUMA ([id number]) on 04/12/2021 8:23:39 AM Referred By: NEVIN Confirmed By:EDIN SOLIS MD
[2021-03-29] MEDS: Levothyroxine 137 MCG Tablet PO (05:59)
--- NOTE | 2021-03-29 07:30 | NURSING ---
No pacer spikes on monitor d/t pt's heart rate maintaining in the upper 80's to 90's without support.
[2021-03-29] MEDS: 0.9% Saline Lock 10 ML Syringe IV ×2 (07:38→16:13)
[2021-03-29] MEDS: HYDROmorphone 0.5 MG/0.5 ML SYRINGE IV (07:38)
--- NOTE | 2021-03-29 08:30 | EKG12_ITS ---
Test Reason : POST CARDIAC EVENT Blood Pressure : / mmHG Vent. Rate : 074 BPM Atrial Rate : 074 BPM P-R Int : 320 ms QRS Dur : 082 ms QT Int : 428 ms P-R-T Axes : 000 -15 259 degrees QTc Int : 475 ms Sinus rhythm with 1st degree A-V block Low voltage QRS Cannot rule out Anteroseptal infarct , age undetermined Nonspecific T wave abnormality Abnormal ECG Confirmed by WILL TAYLOR, EDIN ([id number]), medical transcription editor LENNOX MOCTEZUMA ([id number]) on 04/12/2021 8:16:21 AM Referred By: Confirmed By:EDIN SOLIS MD
--- NOTE | 2021-03-29 08:30 | NURSING ---
Pacemaker settings adjusted by Dr Nelson.
--- NOTE | 2021-03-29 09:04 | PN.HOSP_ITS ---
Subjective Subjective Last evening patient was transferred to ICU with continued Torsades, sustained polymorphic VT at rate of 184-minute. Patient had short cardiac arrest for about 3 minutes and had CPR and was shocked. After the shock patient into PEA arrest and had 1 round of CPR, epinephrine with ROSC. Patient had temporary right femoral transvenous pacemaker. Objective Data Objective Data Vital Signs: Vital Signs Temp Pulse Resp BP Pulse Ox 98.5 F 91 18 149/65 H 98 03/29/21 04:00 03/29/21 07:00 03/29/21 07:00 03/29/21 07:00 03/29/21 07:00 Oxygen Flow Rate (L/min) 2 Oxygen Delivery Method Nasal Cannula Weight: 209 lb 14.081 oz Body Mass Index (BMI) 38.6 Intake & Output: Intake and Output for Last 24 Hours 03/27/21 03/28/21 03/29/21 23:59 23:59 23:59 Intake Total 1659.29 / 1659.29 314.11 / 314.11 Output Total 100 / 250 600 / 600 Balance 1559.29 / 1409.29 -285.89 / -285.89 Lab / Micro Data Result Diagrams: 03/28/21 05:40 03/29/21 03:50 Labs: Laboratory Results - last 24 hr 03/28/21 11:05: Troponin I High Sens 72 H 03/28/21 11:05: Sodium 139, Potassium 4.0, Chloride 103, Carbon Dioxide 30.0, Anion Gap 6, BUN 43 H, Creatinine 4.71 H, Estim Creat Clear Calc 7.31, Est GFR (MDRD) Af Amer 12 L, Est GFR (MDRD) Non-Af 10 L, BUN/Creatinine Ratio 9.1 L, Glucose 152 H, Calcium 8.0 L 03/28/21 11:05: Magnesium 3.1 H 03/28/21 12:52: Troponin I High Sens 70 H 03/28/21 14:19: POC Glucose 119 H 03/28/21 16:40: POC Glucose 158 H 03/28/21 21:11: POC Glucose 202 H 03/28/21 23:21: POC Glucose 176 H 03/29/21 03:50: Sodium 137, Potassium 4.5, Chloride 103, Carbon Dioxide 24.0, Anion Gap 10, BUN 45 H, Creatinine 5.20 H, Estim Creat Clear Calc 6.62, Est GFR (MDRD) Af Amer 10 L, Est GFR (MDRD) Non-Af 9 L, BUN/Creatinine Ratio 8.7 L, Glucose 172 H, Calcium 7.8 L, Magnesium 3.5 H Radiography Diagnostic Testing: Radiology Impression Carotid Duplex 03/28/21 03:27 Interpretation Summary Irregular plaque at the proximal right internal carotid artery with the distal right internal carotid poorly visualized. Less than 50% stenosis right internal carotid artery Less than 50% stenosis right external carotid artery Irregular calcific plaque with shadowing at the proximal left internal carotid artery with 50 to 69% stenosis. Less than 50% stenosis left external carotid artery Patent and antegrade vertebral arteries bilaterally The exam was noted to be technically difficult as the patient was unable to lie still Echocardiogram 03/28/21 05:55 Interpretation Summary Normal LV size. Left ventricular systolic function is normal. The estimated ejection fraction is 55 %. Mild diffuse mitral valve calcification. Pulmonary artery systolic pressure is 48 mmHg. Contrast injection was performed. Ordering Physician: Radha Oden Performed By: Angela Pyle, SARWAT, RVT Physical Exam Narrative General: Alert, Oriented x3, Cooperative HEENT: Atraumatic, PERRLA, EOMI, Normocephalic Oral: No Gingival or Mucosal Lesions/ Ulcerations Neck: Supple, No JVD, Negative Carotid Bruits Lungs: Air entry diminished in bilateral lung bases. No crepitation/rhonchi Cardiovascular: Multiple short runs of NSVT. On transvenous pacemaker. Normal S1, Normal S2, No murmurs Abdomen: Bowel Sounds Present, Soft, Non Tender, Non-Distended : On peritoneal dialysis no renal angle tenderness. No suprapubic tenderness. Extremities: No edema. Right femoral transvenous catheter. No hematoma/bruise. Skin: No rashes, No breakdown Musculoskeletal: No Tenderness to Palpation of Joints or Extremities Neurological: Cranial nerves II-XII grossly intact, DTR 2+/4 and Symmetrical, Neuro grossly intact Psych/Mental Status: Normal Affect, Appropriate. Assessment & Plan Assessment/Plan (1) Ventricular tachycardia: (2) Recurrent syncope: PLAN: 1. Cardiogenic syncope: Recurrent syncope for about 1 month most likely due to polyphasic sustained V. tach with history of bradycardia and junctional rhythm: Patient was initially admitted in PCU and then transferred to ICU on isoproterenol drip: Patient has junctional rhythm on EKG. 2D echo and carotid Doppler as mentioned above. -Patient has had issues with this approximately for 1 month now Was found to have short run of wide-complex tachycardia in ED heart rate 35/m Patient started on dopamine drip and had short runs of SVT. QTc interval prolonged, 688 ms. Patient was given IV magnesium bolus and potassium. monitor car operator shows irregular QRS complexes with changing QRS axis, Torsades Right radial artery cardiac cath access. Discussed with electric stop installer. Patient had cardiac cath no obstructive lesion found. Patient had the echo and found preserved LV systolic function. No RWMA. Mild TR, RVSP 48 mmHg 03/29: Overnight patient had cardiac arrest in ICU which was successfully resuscitated with ROSC with 1 dose of epinephrine, CPR and DC shock. Discussed with electric stop installer. Continue isoproterenol drip. monitor car operator overnight showed short runs of NSVT. Electrolytes sodium potassium normal range. Troponins mildly elevated 2. Bilateral ICA and ECA carotid artery: 3. DM-2 was in acceptable range on Accu-Chek before meals and at bedtime. 4 nonobstructive coronary artery disease -Continue aspirin 5. Hypothyroidism -Continue levothyroxine TSH normal. Hypertension: BP 149/65. Losartan, hydralazine and amlodipine has been discontinued. No beta-jefry or QTC prolonging drugs.. Currently on isoproterenol drip. - Hyperlipidemia -Continue atorvastatin - Chronic normocytic anemia -Hemoglobin stable at 10.2 -Likely related to renal disease -Continue home oral iron supplementation GERD -Continue home PPI Vitamin D deficiency -Restart ergocalciferol and discharge End-stage renal disease -On PD at baseline. Talent Sourcing Specialist consulted for dialysis Anxiety and depression Citalopram is discontinued Morbid obesity -BMI 40.2 -Recommend weight loss -Complicates overall medical care DVT prophylaxis -Heparin was temporarily discontinued as patient had right groin femoral transvenous catheter CODE STATUS -Full code verified the emergency department with family at bedside(daughter in law) Total time of the visit including total time spent in counseling or coordination of care, (more than 50% of the total time, spent in obtaining medical information from nurses and other ancillary care providers,explaining to the patient about labs, imaging, diagnosis and management), discussion with cardiology, review of labs and imaging is 30 minutes. Charges/Coding Visit Charges Inpatient E&M: 75624 Subs Hosp L3
--- NOTE | 2021-03-29 09:21 | PN.RENAL_ITS ---
Documented by User: LUZ ELENA Briggs 03/29/21 09:39 Subjective Subjective Awake, more alert today but still has some confused conversation. Objective Data Objective Data Vital Signs: Vital Signs Temp Pulse Resp BP Pulse Ox 98.5 F 91 18 149/65 H 98 03/29/21 04:00 03/29/21 07:00 03/29/21 07:00 03/29/21 07:00 03/29/21 07:00 Oxygen Flow Rate (L/min) 2 Oxygen Delivery Method Nasal Cannula Weight: 95.2 kg Body Mass Index (BMI) 38.6 Intake & Output: Intake and Output for Last 24 Hours 03/27/21 03/28/21 03/29/21 23:59 23:59 23:59 Intake Total 1659.29 / 1659.29 314.11 / 314.11 Output Total 100 / 250 600 / 600 Balance 1559.29 / 1409.29 -285.89 / -285.89 Lab / Micro Data Result Diagrams: 03/28/21 05:40 03/29/21 03:50 Labs: Laboratory Results - last 24 hr 03/28/21 11:05: Troponin I High Sens 72 H 03/28/21 11:05: Sodium 139, Potassium 4.0, Chloride 103, Carbon Dioxide 30.0, Anion Gap 6, BUN 43 H, Creatinine 4.71 H, Estim Creat Clear Calc 7.31, Est GFR (MDRD) Af Amer 12 L, Est GFR (MDRD) Non-Af 10 L, BUN/Creatinine Ratio 9.1 L, Glucose 152 H, Calcium 8.0 L 03/28/21 11:05: Magnesium 3.1 H 03/28/21 12:52: Troponin I High Sens 70 H 03/28/21 14:19: POC Glucose 119 H 03/28/21 16:40: POC Glucose 158 H 03/28/21 21:11: POC Glucose 202 H 03/28/21 23:21: POC Glucose 176 H 03/29/21 03:50: Sodium 137, Potassium 4.5, Chloride 103, Carbon Dioxide 24.0, Anion Gap 10, BUN 45 H, Creatinine 5.20 H, Estim Creat Clear Calc 6.62, Est GFR (MDRD) Af Amer 10 L, Est GFR (MDRD) Non-Af 9 L, BUN/Creatinine Ratio 8.7 L, Glucose 172 H, Calcium 7.8 L, Magnesium 3.5 H Radiography Diagnostic Testing: Radiology Impression Carotid Duplex 03/28/21 03:27 Interpretation Summary Irregular plaque at the proximal right internal carotid artery with the distal right internal carotid poorly visualized. Less than 50% stenosis right internal carotid artery Less than 50% stenosis right external carotid artery Irregular calcific plaque with shadowing at the proximal left internal carotid artery with 50 to 69% stenosis. Less than 50% stenosis left external carotid artery Patent and antegrade vertebral arteries bilaterally The exam was noted to be technically difficult as the patient was unable to lie still Ordering Physician: Radha Oden Referring Physician: FABRICIO PCP Performed By: Tracy Hand RDCS, RVT Echocardiogram 03/28/21 05:55 Interpretation Summary Normal LV size. Left ventricular systolic function is normal. The estimated ejection fraction is 55 %. Mild diffuse mitral valve calcification. Pulmonary artery systolic pressure is 48 mmHg. Contrast injection was performed. Ordering Physician: Radha Oden Performed By: Angela Pyle RDCS, RVT Physical Exam Narrative Const: alert to person Resp: clear anteriorly and posteriorly Cardio: has transvenous pacemaker Abd: soft, nontender, +BS; dressing C/D/I to PD catheter Extremity: no pitting edema : indwelling klein with scant yellow urine in tubing Assessment & Plan Assessment/Plan (1) ESRD on peritoneal dialysis: (2) Ventricular tachycardia: (3) Recurrent syncope: (4) Essential hypertension: (5) Chronic anemia: PLAN: - patient transferred to ICU due to continued Torsades, VT and cardiac arrest for 3minutes, required CPR, epi with ROSC. She has received IV mag and K+. Today K+ 4.5 She did not have PD last evening because of above/unstable. Will plan for PD this evening using 1.5% dianeal. Outpatient edw 89kg. - Bps have improved. Off all antihypertensives at this time - cardiology following, possibly to have transvenous pacemaker removed this afternoon. Currently on isoproterenol drip - will monitor hemoglobin trends. CBC ordered for am - ok for klein to be removed once pacer removed and off bedrest Documented by User: Dr. Elliott Ovalle MD 03/29/21 16:58 Objective Data Lab / Micro Data Result Diagrams: 03/28/21 05:40 03/29/21 03:50
--- NOTE | 2021-03-29 11:49 | CHAPLAIN ---
Type of Pastoral Visit ___ Initial Visit _x__ Follow-up Visit ___ On-call Visit ___ General Patient Visit ___ Spiritual Assessment ___ Family Conference ___ Bereavement ___ Rapid Response ___ Code Blue ___ Other (describe below) Pastoral Care Referral From _x__ Patient ___ Family ___ Nurse ___ Physician ___ Food Service Worker ___ Land Reclamation Specialist ___ Other (describe below) Sacrament/Intervention ___ Active listening ___ Anointing ___ Congregation ___ Bereavement ___ Communion ___ Kathrine exploration ___ ___ Life review _x__ Prayer ___ Reconciliation ___ Sacrament of Sick _x__ Supportive presence ___ Wedding ___ Other (describe below) Pastoral Comments patient was moved to ICU; met with patient after her procedure; pt is alert; pt welcomes presence and prayer at this time
--- NOTE | 2021-03-29 12:11 | NURSING ---
assumed care of pt at 1200, report received from Ace GUTIERREZ
[2021-03-29] MEDS: BRIMONIDINE 0.15% 5 ML Bottle 1 DRP EACH EYE (13:51)
[2021-03-29] MEDS: fentaNYL 100 MCG/2 ML Ampul 25 MCG IV (13:51)
--- NOTE | 2021-03-29 15:17 | EKG12_ITS ---
Test Reason : EKG CHANGES Blood Pressure : / mmHG Vent. Rate : 077 BPM Atrial Rate : 090 BPM P-R Int : 160 ms QRS Dur : 130 ms QT Int : 508 ms P-R-T Axes : 000 -49 130 degrees QTc Int : 574 ms Undetermined rhythm : Consider Atrial Fibrillation with intermittent AIVR and occasional PVC's Left axis deviation Non-specific intra-ventricular conduction block T wave abnormality, consider anterolateral ischemia Abnormal ECG Confirmed by WILL TAYLOR, EDIN ([id number]), video news editor LENNOX MOCTEZUMA ([id number]) on 04/12/2021 8:18:42 AM Referred By: NEVIN Confirmed By:EDIN SOLIS MD
[2021-03-29 15:22] LABS: Phosphorus 5.2 mg/dL (2.5-4.9)
[2021-03-29 16:20] LABS: Bedside Glucose 132 mg/dL (70-110)
[2021-03-29] MEDS: Lidocaine/D5W 2,000 MG/250 ML IV.SOLN 7.5 MG CONT INF (17:52)
[2021-03-29] MEDS: Lidocaine 2% 100 MG/5 ML Syringe 75 MG IV BOLUS (17:52)
--- NOTE | 2021-03-29 19:44 | DIALYSIS ---
[facility] initiated using 2 bags of 1.5 % solution. Dressing changed. No problems noted. See tx sheet for more details. Report was given to BRENDA Peng.
--- NOTE | 2021-03-29 20:26 | PCM.PN.CARD ---
Subjective Subjective Patient apparently the developed dizziness and wide-complex tachycardia. I reviewed the rhythm strips, and at baseline patient probably has sinus with QT prolongation, and then went into border what looks like polymorphic ventricular tachycardia. She has been having recurrent bouts of this. Potassium and magnesium levels were reviewed. Medications were reviewed. Patient is laying flat in bed, confused, but answering questions appropriately. Etiology of this patient's polymorphic ventricular tachycardia is unclear, for now we will discontinue her citalopram, discontinue her Singulair, we placed her back on IV isoproterenol, and gave her IV lidocaine. Additional 2 g of IV magnesium sulfate was also given. Objective Data Vital Signs: Vital Signs Temp Pulse Resp BP Pulse Ox 97.8 F 60 25 H 139/69 H 99 03/29/21 16:00 03/29/21 19:00 03/29/21 19:00 03/29/21 19:00 03/29/21 19:00 Oxygen Flow Rate (L/min) 2 Oxygen Delivery Method Nasal Cannula Weight: 209 lb 14.081 oz Body Mass Index (BMI) 38.6 Intake & Output: Intake and Output for Last 24 Hours 03/27/21 03/28/21 03/29/21 23:59 23:59 23:59 Intake Total 1659.29 / 1659.29 550.88 / 550.88 Output Total 100 / 250 675 / 675 Balance 1559.29 / 1409.29 -124.12 / -124.12 Lab / Micro Data Result Diagrams: 03/28/21 05:40 03/29/21 03:50 Labs: Laboratory Results - last 24 hr 03/28/21 21:11: POC Glucose 202 H 03/28/21 23:21: POC Glucose 176 H 03/29/21 03:50: Sodium 137, Potassium 4.5, Chloride 103, Carbon Dioxide 24.0, Anion Gap 10, BUN 45 H, Creatinine 5.20 H, Estim Creat Clear Calc 6.62, Est GFR (MDRD) Af Amer 10 L, Est GFR (MDRD) Non-Af 9 L, BUN/Creatinine Ratio 8.7 L, Glucose 172 H, Calcium 7.8 L, Magnesium 3.5 H 03/29/21 03:50: Phosphorus 5.2 H 03/29/21 16:11: POC Glucose 132 H Micro: Microbiology 03/29/21 18:15 Nasal Secretion SARS-CoV-2 Antigen (Rapid) - Final Cardiology Labs/Tests 03/29/21 03:50: Sodium 137, Potassium 4.5, Chloride 103, Carbon Dioxide 24.0, Anion Gap 10, BUN 45 H, Creatinine 5.20 H, Est GFR (MDRD) Af Amer 10 L, Est GFR (MDRD) Non-Af 9 L, BUN/Creatinine Ratio 8.7 L, Glucose 172 H, Calcium 7.8 L, Magnesium 3.5 H 03/29/21 03:50: Phosphorus 5.2 H Rhythm: EKG: ECHO: Stress Test: Cardiac Cath: PCI: CT Surgery: Holter monitor: EPS: PPM: CXR: Chest CT Scan:
[2021-03-29] MEDS: Latanoprost 0.005% 1 Bottle 1 DRP OPHTHALMIC (23:00)
--- NOTE | 2021-03-29 23:29 | NURSING ---
Pt's peritoneal dialysis stopped, fluid remains in abdomen, drain disconnected and clamped as per instructions following cleaning of site w/CHG and then cap placed on pt's drain site.
--- NOTE | 2021-03-29 23:30 | NURSING ---
Pt had ROSC and was alert, heart rhythm changed into torsades and then into VT twice more and each time pt was given synchronized cardioversion at 100J with return to accelerated junctional and then lastly to SR. Pt's respiratory effort was not sufficient and she needed bag/valve assisted breaths. Pt eventually became alert enough to answer questions and reassured staff that she still wants everything done to be kept alive. Explained to pt that at this time it means that we need to place a breathing tube to protect her airway and she did agree. 2346-pt given 20mg etomidate 2347-pt given 50 succ 2348-pt intubated w/#8ETT, placed 25cm CELINA w/positive color change and bilateral breath sounds heard by . OGT placed w/out difficulty by catering staff member.
[2021-03-29] MEDS: Etomidate 20 MG/10 ML Vial IV (23:46)
[2021-03-29] MEDS: Succinylcholine Chloride 200 MG/10 ML Vial 50 MG IV (23:47)
[2021-03-29] MEDS: Propofol 10MG/Ml 1,000 MG/100 ML Bottle 5.7 MG CONT INF (23:55)
[2021-03-30] VITALS (35 sets, daily range): BP systolic 134–161; BP diastolic 45–63; PULSE 73–81; RESP 14–21; TEMP 36.6–38.1; O2SAT 92–100
--- NOTE | 2021-03-30 00:04 | PCM.HOSP.N ---
Hospitalist Note CODE TYLOR was called as the patient went into torsades and required electrical cardioversion at the bedside, and went unresponsive for several seconds. I responded to the code event and the patient was lethargic, and her blood pressure was stable at 150/100s and pulse ox was above 98%, with 3 L nasal cannula assistance. We ordered labs to be done and cardiology was called, and the patient again went into torsades, requiring cardioversion. She became more lethargic with each cardioversion and due to concern for airway protection she was intubated. The patient was given 20 mg of etomidate and 50 mg succinylcholine for RSI and intubated with a direct approach, with cords visualized, positive color change and bilateral breath sounds, maintained appropriate oxygen saturation. She remained hemodynamically stable through these events. Will start Fentanyl, propofol infusions. Patient will be monitored closely. Gregory Kirby MD Procedures Pulmonary 9xxxx: [id number] Insert emergency airway
[2021-03-30 00:21] LABS: ALB/GLOB Ratio 0.4 RATIO (0.9-2.4); AST(SGOT) 27 U/L (15-37); Alanine Aminotransfer ALT/SGPT 17 U/L (13-56); Albumin, Serum 1.8 g/dL (3.2-5.0); Alkaline Phosphatase 91 U/L (45-117); Anion Gap 13 (5-15); BUN 52 mg/dL (7-18); BUN/Creat Ratio 9.4 RATIO (10-20); Calcium,Total 8.3 mg/dL (8.5-10.1); Chloride 102 mmol/L (98-107); Creatinine, Serum 5.55 mg/dL (0.55-1.02); EST Glomerular Filtration Rate 8 mL/min (>60); Est Glom Filt Rate - Afr Amer 10 mL/min (>60); Globulin 4.1 g/dL (2.2-4.2); Glucose 251 mg/dL (74-106); Potassium 4.4 mmol/L (3.5-5.1); Protein, Total 5.9 g/dL (6.4-8.2); Sodium Level 136 mmol/L (136-145)
[2021-03-30 00:41] LABS: Bedside Glucose 224 mg/dL (70-110)
--- NOTE | 2021-03-30 00:45 | RAD_ITS ---
STUDY: X-RAY - ABDOMEN/PELVIS REASON FOR EXAM: Female, 81 years old. OGT placement TECHNIQUE: Single AP view of the abdomen / pelvis. COMPARISON: None. FINDINGS: NG tube in good position tip is in the gastric lumen. There is an unremarkable bowel gas pattern. There is no demonstrated free abdominal air. The visualized liver, spleen and kidneys are grossly normal in size and morphology. Normal soft tissue structures. Normal visualized osseous structures. RAD/Abdomen Single View (Portable) IMPRESSION: NG tube in good position tip is in the gastric lumen. Electronically Signed: Dorene Lucas MD at 1:38 EST Tel , Service support ,
--- NOTE | 2021-03-30 00:45 | RAD_ITS ---
STUDY: X-RAY CHEST REASON FOR EXAM: Female, 81 years old. ETT placement TECHNIQUE: Single AP portable view of the chest. COMPARISON: None. FINDINGS: Endotracheal tube is seen its tip is in the right main bronchus should be pulled back 5 cm. An NG tube is seen its tip is below the diaphragm is in good position. The lungs are clear and expanded. There is no demonstrated pleural abnormality. Normal size heart. Normal mediastinum and hortensia. Normal visualized pulmonary arteries. Normal visualized aortic arch and descending thoracic aorta. Normal visualized thoracic spine. Normal visualized ribs, clavicles, and shoulders. There is no demonstrated abnormality of the visualized soft tissue structures of the upper abdomen. RAD/Chest 1 View (Portable) IMPRESSION: Endotracheal tube is seen its tip is in the right main bronchus should be pulled back 5 cm. Electronically Signed: Dorene Lucas MD at 1:52 EST Tel , Service support ,
[2021-03-30 01:15] LABS: CPK Total, Creatine Kinase 273 U/L (26-192); Triglycerides 147 mg/dL
[2021-03-30] MEDS: Ipratropium/Albuterol Sulfate 3 ML AMPUL.NEB INHALATION ×4 (01:21→19:11)
[2021-03-30 02:00] LABS: Base Excess -3 mmol/L (-2 to +2); Bicarbonate 21.6 mmol/L (22-26); Blood Gas Specimen Type ART; FI02 30; Mode AC; O2 Delivery Device Adult Vent; PEEP 5; PO2 73 mmHG (75-100); RR 16; SITE L Radial; SO2 95 % (95-99); Total Carbon Dioxide 23 mmol/L; Vt 450; pCO2 34.3 mmHg (35-45); pH 7.41 (7.35-7.45)
--- NOTE | 2021-03-30 05:55 | EKG12_ITS ---
Test Reason : Blood Pressure : / mmHG Vent. Rate : 091 BPM Atrial Rate : 091 BPM P-R Int : 000 ms QRS Dur : 104 ms QT Int : 386 ms P-R-T Axes : 000 -61 104 degrees QTc Int : 474 ms Accelerated Junctional rhythm Left axis deviation Septal infarct , age undetermined Abnormal ECG Confirmed by WILL TAYLOR, EDIN ([id number]), newspaper copy editor LENNOX MOCTEZUMA ([id number]) on 04/12/2021 8:19:19 AM Referred By: Lyndon UFNG Confirmed By:EDIN SOLIS MD
--- NOTE | 2021-03-30 06:53 | EX.PCM.CONCC ---
Assessment & Plan Assessment/Plan (1) Acute respiratory failure: PLAN: RECOMMENDATIONS: 1. Continue to wean FiO2 and PEEP for saturations greater than 90%. 2. Pharmacologic management of underlying arrhythmia per cardiology recommendations. 3. Continue nightly peritoneal dialysis. 4. Continue appropriate GI prophylaxis. 5. Await tertiary care facility transfer. IMPRESSIONS: 1. Acute hypoxemic respiratory failure The patient was initially intubated as a consequence of a cardiac arrest that she sustained. She is currently doing well from a respiratory perspective. The patient remains on assist control mode of mechanical ventilation. Arterial blood gases appropriate. Plan to continue to wean FiO2 and PEEP to maintain saturations at or above 90%. Continue appropriate GI prophylaxis. Will obtain and send sputum for culture. 2. Cardiogenic syncope/recurrent polymorphic VT Continue primary medical management per cardiology recommendations. There are tentative plans for tertiary care center transfer in order to facilitate EP evaluation. 3. End-stage renal disease on peritoneal dialysis Continue nightly peritoneal dialysis per nephrology recommendations. 4. Advanced age/nonobstructive coronary disease/hypothyroidism/hypertension/hyperlipidemia Complicates care, management, recovery and prognosis. Continue home medications as indicated. TIME: 36 minutes of critical care time, independent of procedures, was spent addressing the patient's acute hypoxemic respiratory failure, syncope, recurrent polymorphic VT, end-stage renal disease on peritoneal dialysis, review of all data and collaboration with the care team. HPI Consult Data Date of Consult: 03/30/21 HPI Narrative Reason for Consultation: Acute hypoxemic respiratory failure HPI Narrative: The patient is a 81-year-old female, with a history as outlined below, who initially presented to the emergency department on March 28 with syncope. History pertinent to the patient's hospitalization was obtained primarily via chart review, as the patient is currently intubated and sedated. The patient is currently followed by Dr. Nelson in the cardiology clinic due to a history of heart failure with preserved ejection fraction, carotid stenosis, nonobstructive coronary disease and hypertension. While in the emergency department, during her initial evaluation, she was noted to have short runs of ventricular tachycardia, but was apparently asymptomatic during these episodes. After discussing the case with cardiology, it was felt that the patient was having intermittent episodes of polymorphic VT related to prolonged QTC. The patient was medically managed and admitted to the hospital for further management. The patient underwent cardiac catheterization on March 28 which revealed nonobstructive coronary arteries. Surface echocardiogram demonstrated normal LV size and function with an ejection fraction of 55%. Pulmonary artery systolic pressure was estimated to be 48 mmHg. On March 28, the patient did have a temporary pacemaker placed due to torsade the point despite IV magnesium and IV isoproterenol. During the evening hours of March 28, the patient continued to have polymorphic VT which became more sustained. Attempt was made to shock her out of the rhythm, but the patient ultimately went into PEA arrest. ACLS was initiated and after a short time ROSC was achieved. She was not intubated at that time. Patient was then transferred to the medical intensive care unit. Her hospital course has been complicated by worsening renal insufficiency. During the tool storage attendant hours of March 30, a CODE BLUE was called as the patient went into torsades and required cardioversion at the bedside. The patient became lethargic with an inability to protect her airway. She was then intubated. Postintubation arterial blood gas demonstrated a pH of 7.4 with a PCO2 of 34 and PO2 of 73. The patient is apparently awaiting bed availability and transfer to [facility] Medical History (Updated 03/30/21 @ 07:[address] Elliot Diallo, ) Asthma Atherosclerosis of coronary artery of [place] heart without angina pectoris Bilateral carotid artery stenosis Chronic diastolic CHF (congestive heart failure) Essential hypertension GERD (gastroesophageal reflux disease) Glaucoma Hyperlipidemia Hyperparathyroidism, secondary renal Hypothyroidism Lichenification and lichen simplex chronicus Major depressive disorder Neurodermatitis Non-proliferative diabetic retinopathy, both eyes Nonobstructive atherosclerosis of coronary artery Normocytic anemia Nummular eczema Obesity Stage 3 chronic kidney disease Stenosis of left carotid artery Type II diabetes mellitus Vitamin B 12 deficiency Home Medications acetaminophen 500 mg tablet 500 mg PO Q6H PRN 10/12/18 [History Last Taken Unknown] amlodipine 10 mg tablet 10 mg PO DAILY 10/12/18 [History Last Taken Unknown] aspirin 81 mg chewable tablet 81 mg PO DAILY 10/12/18 [History Last Taken Unknown] atorvastatin 80 mg tablet 80 mg PO QHS 10/12/18 [History Last Taken Unknown] citalopram 40 mg tablet 40 mg PO DAILY tab 10/12/18 [History Last Taken Unknown] cyanocobalamin (vitamin B-12) 2,500 mcg sublingual tablet 2,500 mcg SUBLINGUAL DAILY 10/12/18 [History Last Taken Unknown] ergocalciferol (vitamin D2) 1,250 mcg (50,000 unit) capsule 50,000 unit PO QWEEK 10/12/18 [History Last Taken Unknown] omeprazole 40 mg capsule,delayed release 40 mg PO DAILY 10/12/18 [History Last Taken Unknown] albuterol sulfate 90 mcg/actuation aerosol inhaler 2 puff INHALATION Q4H PRN g 10/13/18 [History Last Taken Unknown] ferrous sulfate 325 mg (65 mg iron) tablet 325 mg PO BID tab 10/13/18 [History Last Taken Unknown] glipizide 5 mg tablet 5 mg PO DAILY tab 12/22/18 [History Last Taken Unknown] calcitriol 0.25 mcg capsule 0.25 mcg PO .COMPLEX cap 10/26/19 [History Last Taken Unknown] calcium carbonate 600 mg calcium (1,500 mg) tablet 600 mg PO DAILY 10/26/19 [History Last Taken Unknown] furosemide 20 mg tablet 20 mg PO DAILY PRN tab 10/26/19 [History Last Taken Unknown] latanoprost 0.005 % eye drops 1 drp OPHTHALMIC BID ml 10/26/19 [History Last Taken Unknown] levothyroxine 137 mcg tablet 137 mcg PO DAILY tab 10/26/19 [History Last Taken Unknown] montelukast 10 mg tablet 10 mg PO DAILY 10/26/19 [History Last Taken Unknown] niacin 500 mg tablet,extended release 24 hr 500 mg PO DAILY tab 10/26/19 [History Last Taken Unknown] magnesium oxide 400 mg PO DAILY 08/15/20 [History Last Taken Unknown] carvedilol 3.125 mg tablet 3.125 mg PO BID #60 tab 11/22/20 [Rx Last Taken Unknown] clonidine HCl 0.2 mg tablet 0.2 mg PO BID tab 11/22/20 [History Last Taken Unknown] losartan 100 mg tablet 100 mg PO DAILY 11/22/20 [History Last Taken Unknown] brimonidine 1 drp EACH EYE DAILY 03/28/21 [History Last Taken Unknown] fluticasone propionate [Flovent HFA] 1 puff INHALATION BID 03/28/21 [History Last Taken Unknown] hydralazine 75 mg PO TID 03/28/21 [History Last Taken Unknown] insulin glargine [Lantus Solostar U-100 Insulin] 8 unit SUBCUT BID 03/28/21 [History Last Taken Unknown] ipratropium-albuterol 3 ml INHALATION Q6H 12/29/21 [History Last Taken Unknown] pioglitazone 15 mg PO DAILY 03/28/21 [History Last Taken Unknown] Allergy/AdvReac Type Severity Reaction Status Date / Time metformin [From Glucophage] Allergy Severe renal Verified 03/27/21 23:50 failure adhesive Allergy Intermediate blisters Verified 03/27/21 23:50 oxycodone Allergy Intermediate hallucinati Verified 03/27/21 23:50 ons tramadol Allergy Intermediate Vomiting Verified 03/27/21 23:50 ERIC Inhibitors AdvReac Intermediate cough Verified 03/27/21 23:50 Family History Father Heart disease Hypertension Suicide Mother Hypertension CVA (cerebral vascular accident) COPD (chronic obstructive pulmonary disease) CAD (coronary artery disease) Surgical History (Updated 03/28/21 @ 17:16 by Sravani Koenig) History of bilateral knee replacement (1989) History of breast biopsy History of left heart catheterization (03/28/21) History of open reduction and internal fixation (ORIF) procedure History of right cataract extraction (10/03/11) History of tonsillectomy Social History household members: none Smoking Status: Never smoker alcohol intake: never substance use type: does not use caffeine: Yes Type: coffee Number of servings: 2 ROS Review of Systems ROS Unobtainable: due to endotracheal tube Physical Exam Const no apparent distress General Appearance: intubated and patient mechanically ventilated Nutritional Appearance: morbidly obese HEENT normocephalic and head/scalp atraumatic Mouth: endotracheal tube in place and OG tube in place Eyes PERRL and EOMs intact bilaterally Neck supple General: trachea midline Resp normal respiratory effort Auscultation: Negative for rales, rhonchi or wheezes Cardio regular rate and regular rhythm GI normal to inspection, nondistended, normoactive bowel sounds Extremity no clubbing, cyanosis or edema Skin no rashes or lesions noted Neuro Sensorium / Orientation: sedated on vent Lab / Micro Data Result Diagrams: 03/30/21 07:34 03/30/21 07:34 Labs: Laboratory Results - last 24 hr 03/29/21 03:50: Phosphorus 5.2 H 03/29/21 16:11: POC Glucose 132 H 03/29/21 23:20: POC Glucose 224 H 03/29/21 23:40: Sodium 136, Potassium 4.4, Chloride 102, Carbon Dioxide 21.0, Anion Gap 13, BUN 52 H, Creatinine 5.55 H, Estim Creat Clear Calc 6.20, Est GFR (MDRD) Af Amer 10 L, Est GFR (MDRD) Non-Af 8 L, BUN/Creatinine Ratio 9.4 L, Glucose 251 H, Calcium 8.3 L, Total Bilirubin 0.40, AST 27, ALT 17, Alkaline Phosphatase 91, Total Protein 5.9 L, Albumin 1.8 L, Globulin 4.1, Albumin/Globulin Ratio 0.4 L 03/29/21 23:55: Total Creatine Kinase 273 H, Triglycerides 147 Micro: Microbiology 03/29/21 18:15 Nasal Secretion SARS-CoV-2 Antigen (Rapid) - Final ABG Data ABG results: ABG 03/30/21 01:53 Specimen Type ART Sample Site L Radial pH 7.41 Bicarbonate Actual 21.6 L Total CO2 23 Base Excess -3 L O2 Saturation 95 O2 % 30 ABG pCO2 34.3 L ABG pO2 73 L [place] Test N/A Respiration Rate 16 O2 Delivery Device Adult Vent Vent Mode AC Tidal Volume 450 POC PEEP 5 Radiology Impression Chest X-Ray 03/30/21 00:45 IMPRESSION: Endotracheal tube is seen its tip is in the right main bronchus should be pulled back 5 cm. Electronically Signed: Dorene Lucas MD at 1:52 EST Tel , Service support , KUB X-Ray 03/30/21 00:45 IMPRESSION: NG tube in good position tip is in the gastric lumen. Electronically Signed: Dorene Lucas MD at 1:38 EST Tel , Service support , Charges/Coding Procedures Hospitalists Procedures: 19837 Critial Care 1st Hr
[2021-03-30] MEDS: Budesonide Respules 0.5 MG/2 ML AMPUL.NEB. INHALATION ×2 (07:00→19:11)
[2021-03-30] MEDS: Propofol 10MG/Ml 1,000 MG/100 ML Bottle 11.4 MG CONT INF ×3 (07:05→20:53)
[2021-03-30 08:03] LABS: Absolute Lymphocyte Count 1.44 X10^3/uL (0.83-4.51); Absolute Neutrophil Count 9.5 X10^3/uL (2.0-7.7); Basophil# 0.03 X10^3/uL; Basophil% 0.2 % (0-1); Hematocrit 28.5 % (37-47); Hemoglobin 9.2 g/dL (12.0-15.0); Lymphocyte # 1.44 X10^3/ul (0.83-4.51); Lymphocyte % 11.8 % (19-41); Mean Corp Hgb Conc 32.3 g/dL (32-36); Mean Corpuscular Hgb 32.5 pg (27.0-32.0); Mean Corpuscular Volume 100.7 fL (81-99); Mean Platelet Vol. 10.2 fl (6.2-12.0); Monocyte# 1.23 X10^3/uL; Monocyte% 10.1 % (0-10); NRBC Flagged by Analyzer 0 % (0-5); Neutrophil # 9.46 X10^3/uL (2.7-7.7); Neutrophil % 77.4 % (47-70); Platelet Count 204 K/mm3 (150-450); RBC Distribution Width SD 48.1 fl (35.1-43.9); Red Blood Count 2.83 M/mm3 (4.2-5.4); White Blood Count 12.2 K/mm3 (4.4-11.0)
--- NOTE | 2021-03-30 08:11 | PN.HOSP_ITS ---
Subjective Subjective The patient had a CODE BLUE called because of tarsitis that required cardioversion, shocking 3 times. Patient also had gurgling sound in able to protect airway therefore was intubated. ABG was done 7.4/PCO2 34/PO2 73. Prior to that, last evening after calling to hospitalist patient is finally accepted in [facility] for evaluation of EP and further management. I also talked to patient's daughter last evening and gave clinical update. Objective Data Objective Data Vital Signs: Vital Signs Temp Pulse Resp BP Pulse Ox 98 F 78 16 152/61 H 96 03/30/21 04:00 03/30/21 07:23 03/30/21 07:23 03/30/21 06:00 03/30/21 07:23 Oxygen Flow Rate (L/min) 2 Oxygen Delivery Method Mechanical Ventilator Weight: 217 lb 13.067 oz Body Mass Index (BMI) 38.6 Intake & Output: Intake and Output for Last 24 Hours 03/28/21 03/29/21 03/30/21 23:59 23:59 23:59 Intake Total 1659.29 / 1659.29 649.68 / 649.68 166.87 / 166.87 Output Total 100 / 250 675 / 675 160 / 160 Balance 1559.29 / 1409.29 -25.32 / -25.32 6.87 / 6.87 Lab / Micro Data Result Diagrams: 03/30/21 07:34 03/30/21 07:34 Labs: Laboratory Results - last 24 hr 03/29/21 03:50: Phosphorus 5.2 H 03/29/21 16:11: POC Glucose 132 H 03/29/21 23:20: POC Glucose 224 H 03/29/21 23:40: Sodium 136, Potassium 4.4, Chloride 102, Carbon Dioxide 21.0, Anion Gap 13, BUN 52 H, Creatinine 5.55 H, Estim Creat Clear Calc 6.20, Est GFR (MDRD) Af Amer 10 L, Est GFR (MDRD) Non-Af 8 L, BUN/Creatinine Ratio 9.4 L, Glucose 251 H, Calcium 8.3 L, Total Bilirubin 0.40, AST 27, ALT 17, Alkaline Phosphatase 91, Total Protein 5.9 L, Albumin 1.8 L, Globulin 4.1, Albumin/Globulin Ratio 0.4 L 03/29/21 23:55: Total Creatine Kinase 273 H, Triglycerides 147 03/30/21 07:34: WBC 12.2 H, RBC 2.83 L, Hgb 9.2 L, Hct 28.5 L, MCV 100.7 H, MCH 32.5 H, MCHC 32.3, RDW Std Deviation 48.1 H, RDW Coeff of Alanna 13.0, Plt Count 204, MPV 10.2, Immature Gran % (Auto) 0.500, Neut % (Auto) 77.4 H, Lymph % (Auto) 11.8 L, Bond % (Auto) 10.1 H, Eos % (Auto) 0.0, Baso % (Auto) 0.2, Absolute Neuts (auto) 9.5 H, Absolute Lymphs (auto) 1.44, Nucleated RBC % 0 Micro: Microbiology 03/29/21 18:15 Nasal Secretion SARS-CoV-2 Antigen (Rapid) - Final ABG Data ABG results: ABG 03/30/21 01:53 Specimen Type ART Sample Site L Radial pH 7.41 Bicarbonate Actual 21.6 L Total CO2 23 Base Excess -3 L O2 Saturation 95 O2 % 30 ABG pCO2 34.3 L ABG pO2 73 L Aquilino Test N/A Respiration Rate 16 O2 Delivery Device Adult Vent Vent Mode AC Tidal Volume 450 POC PEEP 5 Radiography Diagnostic Testing: Radiology Impression Chest X-Ray 03/30/21 00:45 IMPRESSION: Endotracheal tube is seen its tip is in the right main bronchus should be pulled back 5 cm. Electronically Signed: Dorene Lucas MD at 1:52 EST Tel , Service support , KUB X-Ray 03/30/21 00:45 IMPRESSION: NG tube in good position tip is in the gastric lumen. Electronically Signed: Dorene Lucas MD at 1:38 EST Tel , Service support , Physical Exam Narrative General: Sedated, intubated. HEENT: Atraumatic, PERRLA, EOMI, Normocephalic Oral: No Gingival or Mucosal Lesions/ Ulcerations Neck: Supple, No JVD, Negative Carotid Bruits Lungs: On vent setting, AC mode. Air entry bilateral equal. Cardiovascular: Multiple short runs of V. tach, dorsales NSVT. Transvenous pacemaker was removed on 03/29 afternoon. Normal S1, Normal S2, No murmurs Abdomen: Bowel Sounds Present, Soft, Non Tender, Non-Distended : Mittal catheter. On peritoneal dialysis no renal angle tenderness. No suprapubic tenderness. Extremities: No edema. Right femoral transvenous catheter. No hematoma/bruise. Skin: No rashes, No breakdown Musculoskeletal: No Tenderness to Palpation of Joints or Extremities. TKR scar Neurological: Limited evaluation. Sedated, no significant/normal focal deficit Psych/Mental Status: Sedated Assessment & Plan Assessment/Plan (1) Ventricular tachycardia: (2) Recurrent syncope: PLAN: 1. Cardiogenic syncope: Recurrent syncope for about 1 month most likely due to polyphasic sustained V. tach with history of bradycardia and junctional rhythm: Patient was initially admitted in PCU and then transferred to ICU on isoproterenol drip: Patient has junctional rhythm on EKG. 2D echo and carotid Doppler as mentioned above. -Patient has had issues with this approximately for 1 month now Was found to have short run of wide-complex tachycardia in ED heart rate 35/m Patient started on dopamine drip and had short runs of SVT. QTc interval prolonged, 688 ms. Patient was given IV magnesium bolus and potassium. structural steel worker apprentice shows irregular QRS complexes with changing QRS axis, Torsades Right radial artery cardiac cath access. Discussed with safekeeping clerk. Patient had cardiac cath no obstructive lesion found. Patient had the echo and found preserved LV systolic function. No RWMA. Mild TR, RVSP 48 mmHg 03/29: Overnight patient had cardiac arrest in ICU which was successfully resuscitated with ROSC with 1 dose of epinephrine, CPR and DC shock. Discussed with safekeeping clerk. Continue isoproterenol drip. structural steel worker apprentice overnight showed short runs of NSVT. Electrolytes sodium potassium normal range. Troponins mildly elevated. 03/30: Patient had bouts of polyphasic V. tach/torsade and had DC shock. Patient was also lethargic obtunded therefore intubated mainly to protect airway. Draw Frame Runner consulted for vent management I further called [facility] transfer line and gave clinical update for transfer. tenant coordinator said she might go to cardiac ICU. Prior to that, [facility] and [facility], [facility]. Yesterday, patient was accepted by Dr. Corbin by [facility]. Discussed with the safekeeping clerk, Dr Dorota Yuen and gave clinical update about acceptance by [facility]. [facility] is also been updated about last night event of intubation, V. tach and DC shock. Patient on lidocaine and dobutamine drip in place of isoproterenol as per pharmacy ran out of isoproterenol drip 2. Bilateral ICA and ECA carotid artery: Bilateral carotid stenosis internal and external. Less than 50% stenosis in right internal and external carotid artery. Irregular calcific plaque in proximal left ICA, 50 to 69%. Less than 50% plaque in left ECA 3. DM-2 was in acceptable range on Accu-Chek before meals and at bedtime. 4 nonobstructive coronary artery disease -Continue aspirin 5. Hypothyroidism -Continue levothyroxine TSH normal. Hypertension: BP 149/65. Losartan, hydralazine and amlodipine has been discontinued. No beta-jefry or QTC prolonging drugs.. Currently on isoproterenol drip. - Hyperlipidemia -Continue atorvastatin - Chronic normocytic anemia -Hemoglobin stable at 10.2 -Likely related to renal disease -Continue home oral iron supplementation GERD -Continue home PPI Vitamin D deficiency -Restart ergocalciferol and discharge End-stage renal disease -On PD at baseline. Chief Technician consulted for dialysis Anxiety and depression Citalopram is discontinued Morbid obesity -BMI 40.2 -Recommend weight loss -Complicates overall medical care DVT prophylaxis -Heparin was temporarily discontinued as patient had right groin femoral transvenous catheter CODE STATUS -Full code verified the emergency department with family at bedside(daughter in law) Total time of the visit including total time spent in counseling or coordination of care, (more than 50% of the total time, spent in obtaining medical information from nurses and other ancillary care providers,explaining to the patient about labs, imaging, diagnosis and management), discussion with cardiology, review of labs and imaging is 30 minutes. Charges/Coding Visit Charges Inpatient E&M: 25527 Subs Hosp L3
[2021-03-30 08:16] LABS: Magnesium 3.6 mg/dL (1.6-2.6); Phosphorus 4.6 mg/dL (2.5-4.9)
[2021-03-30 08:24] LABS: International Normalized Ratio 1.2; Prothrombin Time (Protime)PT. 14.4 SECONDS (11.7-14.9)
[2021-03-30 08:25] LABS: Partial Thromboplast Time 29.7 Seconds (24.1-36.2)
[2021-03-30] MEDS: Insulin Lispro 100 UNIT/ML INSULN.PEN SC (08:35)
[2021-03-30 08:36] LABS: Bedside Glucose 233 mg/dL (70-110)
[2021-03-30 08:41] LABS: AST(SGOT) 28 U/L (15-37); Alanine Aminotransfer ALT/SGPT 18 U/L (13-56); Albumin, Serum 1.7 g/dL (3.2-5.0); Alkaline Phosphatase 91 U/L (45-117); Anion Gap 13 (5-15); BUN 51 mg/dL (7-18); BUN/Creat Ratio 9.1 RATIO (10-20); Bilirubin, Direct 0.14 mg/dL (0.00-0.30); Calcium,Total 8.1 mg/dL (8.5-10.1); Chloride 100 mmol/L (98-107); Cholesterol 168 mg/dL (200); Creatinine, Serum 5.63 mg/dL (0.55-1.02); EST Glomerular Filtration Rate 8 mL/min (>60); Est Glom Filt Rate - Afr Amer 9 mL/min (>60); Estimated Creatinine Clearance 6.11 ml/min; Globulin 4.1 g/dL (2.2-4.2); Glucose 232 mg/dL (74-106); High Density Lipoprotein 54 mg/dL; Magnesium 3.5 mg/dL (1.6-2.6); Phosphorus 4.5 mg/dL (2.5-4.9); Potassium 4.2 mmol/L (3.5-5.1); Protein, Total 5.8 g/dL (6.4-8.2); Sodium Level 136 mmol/L (136-145); Triglycerides 161 mg/dL; Very Low Density Lipoprotein 32 mg/dL (5-40)
[2021-03-30] MEDS: DOBUTamine 500mg PM 500 MG/250 ML IV.SOLN. 8.9 MG CONT INF ×2 (08:42→20:53)
[2021-03-30 08:47] LABS: CPK Total, Creatine Kinase 296 U/L (26-192); Triglycerides 158 mg/dL
--- NOTE | 2021-03-30 09:40 | CASEMGMT ---
Insurance review for hospitals In-network with [facility] PPO Insurance if transfer is recommended is as follows: [employer], [employer], [employer], [facility], [facility], [facility], [facility] ([facility]), and . Yue BSN RN CM
--- NOTE | 2021-03-30 09:42 | DIALYSIS ---
Pt went into cardiac arrest last night during CCPD. ICU staff removed pt from cycler as instructed for an emergency. Pt was just starting drain 2 at the time of arrest. Manual drain complete per orders from Dr. White. Drain time was 30 minutes. Stay safe cap placed. Effluent drainage is yellow and clear. No fibrin noted. Dressing is intact. See tx sheets for more details. Report was given to BRENDA Gomez
[2021-03-30 09:56] LABS: Hemoglobin A1c 7.5 % (3.8-5.6)
[2021-03-30] MEDS: Levothyroxine 137 MCG Tablet PO (11:04)
[2021-03-30] MEDS: Aspirin 81 MG TAB.CHEW PO (11:04)
[2021-03-30] MEDS: BRIMONIDINE 0.15% 5 ML Bottle 1 DRP EACH EYE (11:05)
[2021-03-30] MEDS: Cyanocobalamin 500 MCG Tablet 2500 MCG PO (11:07)
[2021-03-30] MEDS: Pantoprazole Sodium 40 MG Tablet PO (11:07)
[2021-03-30] MEDS: Ferrous Sulfate 325 MG Tablet PO (11:08)
[2021-03-30] MEDS: 0.9% Saline Lock 10 ML Syringe IV ×3 (11:43→21:37)
[2021-03-30] MEDS: fentaNYL 100 MCG/2 ML Ampul 25 MCG IV (15:36)
[2021-03-30 16:26] LABS: Bedside Glucose 130 mg/dL (70-110)
--- NOTE | 2021-03-30 18:22 | PCM.DC.SUM ---
Providers Date of Admission: 03/28/21 Primary Care Physician: Dr. Satnam Saldana MD Consultations 03/28/21 04:55 Consult: Nephrology Routine Consulting Provider: Elliott Ovalle Reason for Consult: ESRD on PD EMERGENT Consult: No Notified: Yes Date Notified: 03/28/21 Time Notified: 07:53 Method of Notification: Answering Service 03/30/21 06:22 Consult: Truck Rental Service Attendant / Pulmonary Medicine Routine Consulting Provider: Pulmonary Medicine [facility] Reason for Consult: intubation/ICU mgt EMERGENT Consult: No Notified: Yes Date Notified: 03/30/21 Time Notified: 06:22 Method of Notification: Verbal Reason For Visit: SYNCOPE,BRADYCARDIA Diagnosis Discharge Diagnosis (1) Ventricular tachycardia: Status: Acute Code(s): I47.2 - Ventricular tachycardia (2) Recurrent syncope: Status: Acute Code(s): R55 - Syncope and collapse Medications at Discharge Home Medications acetaminophen 500 mg tablet 500 mg PO Q6H PRN 10/12/18 amlodipine 10 mg tablet 10 mg PO DAILY 10/12/18 aspirin 81 mg chewable tablet 81 mg PO DAILY 10/12/18 atorvastatin 80 mg tablet 80 mg PO QHS 10/12/18 citalopram 40 mg tablet 40 mg PO DAILY tab 10/12/18 cyanocobalamin (vitamin B-12) 2,500 mcg sublingual tablet 2,500 mcg SUBLINGUAL DAILY 10/12/18 ergocalciferol (vitamin D2) 1,250 mcg (50,000 unit) capsule 50,000 unit PO QWEEK 10/12/18 omeprazole 40 mg capsule,delayed release 40 mg PO DAILY 10/12/18 albuterol sulfate 90 mcg/actuation aerosol inhaler 2 puff INHALATION Q4H PRN g 10/13/18 ferrous sulfate 325 mg (65 mg iron) tablet 325 mg PO BID tab 10/13/18 glipizide 5 mg tablet 5 mg PO DAILY tab 12/22/18 calcitriol 0.25 mcg capsule 0.25 mcg PO .COMPLEX cap 10/26/19 calcium carbonate 600 mg calcium (1,500 mg) tablet 600 mg PO DAILY 10/26/19 furosemide 20 mg tablet 20 mg PO DAILY PRN tab 10/26/19 latanoprost 0.005 % eye drops 1 drp OPHTHALMIC BID ml 10/26/19 levothyroxine 137 mcg tablet 137 mcg PO DAILY tab 10/26/19 montelukast 10 mg tablet 10 mg PO DAILY 10/26/19 niacin 500 mg tablet,extended release 24 hr 500 mg PO DAILY tab 10/26/19 magnesium oxide 400 mg PO DAILY 08/15/20 carvedilol 3.125 mg tablet 3.125 mg PO BID #60 tab 11/22/20 clonidine HCl 0.2 mg tablet 0.2 mg PO BID tab 11/22/20 losartan 100 mg tablet 100 mg PO DAILY 11/22/20 brimonidine 1 drp EACH EYE DAILY 03/28/21 fluticasone propionate [Flovent HFA] 1 puff INHALATION BID 03/28/21 hydralazine 75 mg PO TID 03/28/21 insulin glargine [Lantus Solostar U-100 Insulin] 8 unit SUBCUT BID 03/28/21 ipratropium-albuterol 3 ml INHALATION Q6H 03/28/21 pioglitazone 15 mg PO DAILY 03/28/21 Hospital Course Summary of Care Provided Hospital Course: This 81-year-old female was admitted with chief complaint of recurrent syncope and was found to have cardiogenic syncope from recurrent polyphasic sustained V. tach, NSVT, bradycardia with junctional rhythm. Patient initially admitted in PCU and then transferred to ICU. Patient was started on dopamine drip and had short runs of SVT. QTC was prolonged secondary to 8 ms. Patient was given IV magnesium bolus and potassium. And electrolytes were monitored and corrected. quality assurance monitor final shows irregular QRS complexes with changing QRS axis, Torsades. Patient was comanaged with wrestling coach. Patient had cardiac cath showed right radial artery access site and found no obstructive lesion found. Patient had the echo and found preserved LV systolic function. No RWMA. Mild TR, RVSP 48 mmHg On 03/29: Overnight patient had cardiac arrest in ICU which was successfully resuscitated with ROSC with 1 dose of epinephrine, CPR and DC shock. Discussed with wrestling coach. Continue isoproterenol drip. quality assurance monitor final overnight showed short runs of NSVT. Electrolytes sodium potassium normal range. Troponins mildly elevated. Patient had transvenous pacemaker which was removed later on. On 03/30: Patient had bouts of polyphasic V. tach/torsade and had DC shock. Patient was also lethargic obtunded therefore intubated mainly to protect airway. Truck Rental Service Attendant consulted for vent management I further called [facility] transfer line and gave clinical update for transfer. Prior to that, [facility] and [facility] were called but did not have bed and not accepting patient from outside. The patient was accepted by Dr. Corbin by [facility] but it did not have beds open Discussed with the wrestling coach, Dr Dorota Yuen and gave clinical update about acceptance by [facility]. Patient on lidocaine and dobutamine drip in place of isoproterenol as per pharmacy ran out of isoproterenol drip. Finally patient transferred to [facility] has bed opened up on 03/30/2021 for EP evaluation and further management 2. Bilateral ICA and ECA carotid artery: Bilateral carotid stenosis internal and external. Less than 50% stenosis in right internal and external carotid artery. Irregular calcific plaque in proximal left ICA, 50 to 69%. Less than 50% plaque in left ECA 3. DM-2 was in acceptable range on Accu-Chek before meals and at bedtime. 4 nonobstructive coronary artery disease -Continue aspirin 5. Hypothyroidism -Continue levothyroxine TSH normal. Hypertension: BP 149/65. Losartan, hydralazine and amlodipine has been discontinued. No beta-jefry or QTC prolonging drugs.. Currently on isoproterenol drip. - Hyperlipidemia -Continue atorvastatin - Chronic normocytic anemia -Hemoglobin stable at 10.2 -Likely related to renal disease -Continue home oral iron supplementation GERD -Continue home PPI Vitamin D deficiency -Restart ergocalciferol and discharge End-stage renal disease -On PD at baseline. Candles Pourer consulted for dialysis Anxiety and depression Citalopram is discontinued Morbid obesity -BMI 40.2 -Recommend weight loss -Complicates overall medical care DVT prophylaxis -Heparin was temporarily discontinued as patient had right groin femoral transvenous catheter CODE STATUS -Full code verified the emergency department with family at bedside(daughter in law) Total time spent, exact 35 minutes on discharge meds reconciliation, examination, coordination of care with nurses and ancillary staff, review of imaging and blood test and exchange of clinical information with clinical coordinators with [facility] and [facility] and doctors more than 35 Physical Exam Narrative Patient was seen and examined on the day of transfer to [facility]. Please see progress note on the same date. Weight / BMI Weight Weight: 217 lb 13.067 oz Body Mass Index (BMI) 38.6 ABG / Lab / Microbiology Data Result Diagrams: 03/30/21 07:34 03/30/21 07:34 Laboratory: Laboratory Results - last 24 hr 03/29/21 23:20: POC Glucose 224 H 03/29/21 23:40: Sodium 136, Potassium 4.4, Chloride 102, Carbon Dioxide 21.0, Anion Gap 13, BUN 52 H, Creatinine 5.55 H, Estim Creat Clear Calc 6.20, Est GFR (MDRD) Af Amer 10 L, Est GFR (MDRD) Non-Af 8 L, BUN/Creatinine Ratio 9.4 L, Glucose 251 H, Calcium 8.3 L, Total Bilirubin 0.40, AST 27, ALT 17, Alkaline Phosphatase 91, Total Protein 5.9 L, Albumin 1.8 L, Globulin 4.1, Albumin/Globulin Ratio 0.4 L 03/29/21 23:55: Total Creatine Kinase 273 H, Triglycerides 147 03/30/21 07:34: Sodium 136, Potassium 4.2, Chloride 100, Carbon Dioxide 23.0, Anion Gap 13, BUN 51 H, Creatinine 5.63 H, Estim Creat Clear Calc 6.11, Est GFR (MDRD) Af Amer 9 L, Est GFR (MDRD) Non-Af 8 L, BUN/Creatinine Ratio 9.1 L, Glucose 232 H, Calcium 8.1 L, Phosphorus 4.5, Magnesium 3.5 H, Total Bilirubin 0.50, Direct Bilirubin 0.14, AST 28, ALT 18, Alkaline Phosphatase 91, Total Protein 5.8 L, Albumin 1.7 L, Globulin 4.1, Triglycerides 161, Cholesterol 168, LDL Cholesterol 82, VLDL Cholesterol 32, HDL Cholesterol 54 03/30/21 07:34: Hemoglobin A1c 7.5 H 03/30/21 07:34: WBC 12.2 H, RBC 2.83 L, Hgb 9.2 L, Hct 28.5 L, MCV 100.7 H, MCH 32.5 H, MCHC 32.3, RDW Std Deviation 48.1 H, RDW Coeff of Alanna 13.0, Plt Count 204, MPV 10.2, Immature Gran % (Auto) 0.500, Neut % (Auto) 77.4 H, Lymph % (Auto) 11.8 L, Gordon % (Auto) 10.1 H, Eos % (Auto) 0.0, Baso % (Auto) 0.2, Absolute Neuts (auto) 9.5 H, Absolute Lymphs (auto) 1.44, Nucleated RBC % 0 03/30/21 07:34: Total Creatine Kinase 296 H, Triglycerides 158 03/30/21 07:34: Phosphorus 4.6, Magnesium 3.6 H 03/30/21 07:34: PT 14.4, INR 1.2, APTT 29.7 03/30/21 08:32: POC Glucose 233 H 03/30/21 11:48: POC Glucose 130 H Microbiology: Microbiology 03/30/21 08:20 Sputum, Induced/Lukens Gram Stain - Final 03/29/21 18:15 Nasal Secretion SARS-CoV-2 Antigen (Rapid) - Final ABG: ABG 03/30/21 01:53 Specimen Type ART Sample Site L Radial pH 7.41 Bicarbonate Actual 21.6 L Total CO2 23 Base Excess -3 L O2 Saturation 95 O2 % 30 ABG pCO2 34.3 L ABG pO2 73 L [place] Test N/A Respiration Rate 16 O2 Delivery Device Adult Vent Vent Mode AC Tidal Volume 450 POC PEEP 5 Radiography Diagnostic Testing: Radiology Impression Chest X-Ray 03/30/21 00:45 IMPRESSION: Endotracheal tube is seen its tip is in the right main bronchus should be pulled back 5 cm. Electronically Signed: Dorene Lucas MD at 1:52 EST Tel , Service support , KUB X-Ray 03/30/21 00:45 IMPRESSION: NG tube in good position tip is in the gastric lumen. Electronically Signed: Dorene Lucas MD at 1:38 EST Tel , Service support , Meaningful Use Info Meaningful Use Diagnoses (Choose all that apply): None applicable Discharge Plan Admission Admit Date/Time: 03/28/21 03:22 Primary Reason for Your Visit: Polyphasic V. tach/Torsades Attending Provider: Castro Perla Primary Care Provider: Satnam Saldana Consulting Providers: Elliott Ovalle ; Tono Zuniga ; Elliot Diallo ; Lizbeth Osullivan [employer]LINDER [employer]LE REL[employer]ER Discharge Orders/Prescriptions Prescriptions: No Action amlodipine 10 mg tablet 10 mg PO DAILY RF: 0 omeprazole 40 mg capsule,delayed release(DR/EC) 40 mg PO DAILY RF: 0 ergocalciferol (vitamin D2) 50,000 unit capsule 50,000 unit PO QWEEK RF: 0 citalopram 40 mg tablet 40 mg PO DAILY RF: 0 atorvastatin 80 mg tablet 80 mg PO QHS RF: 0 cyanocobalamin (vitamin B-12) [Vitamin B-12] 2,500 mcg tablet, sublingual 2,500 mcg SUBLINGUAL DAILY RF: 0 acetaminophen 500 mg tablet 500 mg PO Q6H PRN (Reason: Fever Or Pain) RF: 0 aspirin 81 mg tablet,chewable 81 mg PO DAILY RF: 0 albuterol sulfate 90 mcg/actuation HFA aerosol inhaler 2 puff INHALATION Q4H PRN (Reason: shortness ) RF: 0 ferrous sulfate 325 mg (65 mg iron) tablet 325 mg PO BID RF: 0 glipizide 5 mg tablet 5 mg PO DAILY RF: 0 latanoprost 0.005 % drops 1 drp OPHTHALMIC BID RF: 0 levothyroxine 137 mcg tablet 137 mcg PO DAILY RF: 0 furosemide 20 mg tablet 20 mg PO DAILY PRN (Reason: shortness of breath) RF: 0 niacin [Niaspan Extended-Release] 500 mg tablet extended release 24 hr 500 mg PO DAILY RF: 0 clonidine HCl 0.2 mg tablet 0.2 mg PO BID RF: 0 calcitriol 0.25 mcg capsule 0.25 mcg PO .COMPLEX RF: 0 montelukast 10 mg tablet 10 mg PO DAILY RF: 0 calcium carbonate 600 mg calcium (1,500 mg) tablet 600 mg PO DAILY RF: 0 magnesium oxide 400 mg magnesium tablet 400 mg PO DAILY RF: 0 losartan 100 mg tablet 100 mg PO DAILY RF: 0 carvedilol 3.125 mg tablet 3.125 mg PO BID Qty: 60 RF: 11 pioglitazone 15 mg Tablet 15 mg PO DAILY RF: 0 ipratropium-albuterol 0.5 mg-3 mg(2.5 mg base)/3 mL Solution For Nebulization 3 ml INHALATION Q6H RF: 0 Flovent HFA 110 mcg/actuation HFA aerosol inhaler 1 puff INHALATION BID RF: 0 brimonidine 0.1 % Drops 1 drp EACH EYE DAILY RF: 0 Lantus Solostar U-100 Insulin 100 unit/mL (3 mL) Insulin Pen 8 unit subcut BID RF: 0 hydralazine 25 mg tablet 75 mg PO TID RF: 0 Referrals / Follow Up: Satnam Saldana MD [Primary Care Provider] - Care Physician,No Primary [NON-STAFF] - Disposition Disposition (needs filled in before D/C Order can be placed): Transfer to Another Type HCF Charges/Coding Visit Charges Inpatient E&M: 51093 Disch Hosp
[2021-03-30 20:36] LABS: Bedside Glucose 141 mg/dL (70-110)
[2021-03-30] MEDS: Lidocaine/D5W 2,000 MG/250 ML IV.SOLN 7.5 MG CONT INF (20:53)
== END 2021-03-30 23:00 | disposition other institution (70) | DRG 260 ==
LOC: ED 03-28 02:20 → PCU 03-28 04:42 → ICU 03-28 20:14
PROVIDERS: Hospitalist; Internal Medicine Cardiovascular Disease; Nurse Practitioner Adult Health; Admitting Provider Internal Medicine; Emergency Provider Emergency Medicine; PCP Family Medicine; Visit Provider Internal Medicine
DX: I47.2 Ventricular tachycardia (principal); N18.6 End stage renal disease; J96.01 Acute respiratory failure with hypoxia; I50.32 Chronic diastolic (congestive) heart failure; Z68.41 Body mass index [BMI] 40.0-44.9, adult; I13.2 Hypertensive heart and chronic kidney disease with heart failure and with stage 5 chronic kidney disease, or end stage renal disease; I46.9 Cardiac arrest, cause unspecified; I25.10 Atherosclerotic heart disease of native coronary artery without angina pectoris; K21.9 Gastro-esophageal reflux disease without esophagitis; E03.9 Hypothyroidism, unspecified; E78.5 Hyperlipidemia, unspecified; E66.01 Morbid (severe) obesity due to excess calories; D64.9 Anemia, unspecified; E55.9 Vitamin D deficiency, unspecified; E11.22 Type 2 diabetes mellitus with diabetic chronic kidney disease; F41.9 Anxiety disorder, unspecified; I65.23 Occlusion and stenosis of bilateral carotid arteries; F32.9 Major depressive disorder, single episode, unspecified; Z99.2 Dependence on renal dialysis; Z79.4 Long term (current) use of insulin; Z79.84 Long term (current) use of oral hypoglycemic drugs; Z79.890 Hormone replacement therapy
CPT/HCPCS: 31500; 33210; 36415; 36569; 36600; 71045; 74018; 80048; 80053; 80061; 80076; 82550; 82803; 82962; 83036; 83735; 84100; 84443; 84478; 84484; 85025; 85610; 85730; 87070; 87205; 87426; 90947; 92950; 93005; 93306; 93454; 93880; 94003; 94640; 97802; 97803; 99152; 99153; 99285; J7030; Q9957; A4216; C1769; C1894; C8929; G0257; J0330; J3010; Q9967

== ENCOUNTER → 2021-04-25 | Outpatient (REF) | payer SELFPAY ==
[2021-04-25 07:40] LABS: Bacteria 0 SEEN /hpf (None Seen); Mucous, Urine 0 SEEN /hpf (<or=2+)
[2021-04-25 08:10] LABS: Mean Corp Hgb Conc 31.3 g/dL (32-36); Mean Corpuscular Hgb 32.5 pg (27.0-32.0); Mean Corpuscular Volume 103.9 fL (81-99); Platelet Count 281 K/mm3 (150-450); RBC Distribution Width CV 13.8 % (11.6-14.6); Red Blood Count 3.08 M/mm3 (4.2-5.4); White Blood Count 5.8 K/mm3 (4.4-11.0)
[2021-04-25 08:17] LABS: Anion Gap 8 (5-15); BUN 33 mg/dL (7-18); BUN/Creat Ratio 5.6 RATIO (10-20); Calcium,Total 8.4 mg/dL (8.5-10.1); Chloride 99 mmol/L (98-107); Creatinine, Serum 5.89 mg/dL (0.55-1.02); EST Glomerular Filtration Rate 7 mL/min (>60); Est Glom Filt Rate - Afr Amer 9 mL/min (>60); Glucose 177 mg/dL (74-106); Magnesium 1.7 mg/dL (1.6-2.6); Potassium 4.5 mmol/L (3.5-5.1); Sodium Level 137 mmol/L (136-145)
[2021-04-25 08:22] LABS: Vitamin B12 1214 pg/mL (211-911)
[2021-04-25 08:38] LABS: Color, Urine Yellow (Yellow); Glucose, Dipstick 50 mg/dl (Normal); Ketone-Dipstick 5 mg/dl (Negative); Leukocyte Esterase-Dipstick 500 /ul (Negative); Nitrite-Dipstick Negative (Negative); Occult Blood-Urine 25 /ul (Negative); Protein-Dipstick 100 mg/dl (Negative); Urine Clarity Turbid (Clear); Urine Urobilinogen 1 mg/dl (Normal)
[2021-04-25 08:43] LABS: Urine Bilirubin Dipstick 3 mg/dL (Negative)
[2021-04-25 08:45] LABS: White Blood Cells >100 SEEN /hpf (0-5); White Cell Cast 0-5 SEEN /lpf (None Seen)
[2021-04-25 08:46] LABS: Coarse Granular Cast 5-10 SEEN /lpf (0-5 /lpf)
[2021-04-25 08:47] LABS: Amorphous Sediment 3+; Red Blood Cells-Urine 0-5 SEEN /hpf (0-5); Squamous Epithelial Cells - UA 0-5 SEEN /hpf (5-10)
[2021-04-25 10:59] LABS: Hemoglobin A1c 6.9 % (3.8-5.6)
== END | disposition home or self-care (01) ==
LOC: OLS.SW1020 04:00
PROVIDERS: PCP Family Medicine; Referring Provider Internal Medicine; Visit Provider Internal Medicine
DX: E11.22 Type 2 diabetes mellitus with diabetic chronic kidney disease (principal); N18.6 End stage renal disease; R41.0 Disorientation, unspecified
CPT/HCPCS: 36415; 80048; 81001; 82607; 83036; 83735; 85027; 87077; 87086; 87088; 87186

== ENCOUNTER → 2021-05-02 | Outpatient (REF) | payer SELFPAY ==
[2021-05-02 10:11] LABS: Hematocrit 28.8 % (37-47); Hemoglobin 9.1 g/dL (12.0-15.0); Mean Corp Hgb Conc 31.6 g/dL (32-36); Mean Corpuscular Hgb 33.6 pg (27.0-32.0); Mean Corpuscular Volume 106.3 fL (81-99); Mean Platelet Vol. 10.1 fl (6.2-12.0); Platelet Count 222 K/mm3 (150-450); RBC Distribution Width CV 14.3 % (11.6-14.6); RBC Distribution Width SD 54.2 fl (35.1-43.9); Red Blood Count 2.71 M/mm3 (4.2-5.4); White Blood Count 5.7 K/mm3 (4.4-11.0)
[2021-05-02 10:30] LABS: Vitamin B12 755 pg/mL (211-911)
[2021-05-02 10:32] LABS: Anion Gap 5 (5-15); BUN 35 mg/dL (7-18); BUN/Creat Ratio 6.2 RATIO (10-20); Chloride 102 mmol/L (98-107); Creatinine, Serum 5.68 mg/dL (0.55-1.02); EST Glomerular Filtration Rate 8 mL/min (>60); Est Glom Filt Rate - Afr Amer 9 mL/min (>60); Glucose 206 mg/dL (74-106); Magnesium 1.7 mg/dL (1.6-2.6); Potassium 5.1 mmol/L (3.5-5.1); Sodium Level 137 mmol/L (136-145)
[2021-05-02 10:46] LABS: Hemoglobin A1c 6.9 % (3.8-5.6)
[2021-05-07 05:51] LABS: Thyroid Stim Hormone (TSH) 2.04 uIU/mL (0.358-3.74)
== END | disposition home or self-care (01) ==
LOC: OLS.SW1020 05:00
PROVIDERS: PCP Family Medicine; Visit Provider Internal Medicine
DX: E11.22 Type 2 diabetes mellitus with diabetic chronic kidney disease (principal); N18.6 End stage renal disease
CPT/HCPCS: 36415; 80048; 82607; 83036; 83735; 84443; 85027

== ENCOUNTER → 2021-05-14 | Outpatient (REF) | payer SELFPAY ==
[2021-05-14 10:02] LABS: Absolute Lymphocyte Count 1.88 X10^3/uL (0.83-4.51); Basophil# 0.02 X10^3/uL; Basophil% 0.3 % (0-1); Eosinophil# 0.15 X10^3/uL; Hematocrit 31.1 % (37-47); Lymphocyte # 1.88 X10^3/ul (0.83-4.51); Lymphocyte % 24.7 % (19-41); Mean Corp Hgb Conc 32.2 g/dL (32-36); Mean Corpuscular Hgb 33.9 pg (27.0-32.0); Mean Corpuscular Volume 105.4 fL (81-99); Mean Platelet Vol. 10.8 fl (6.2-12.0); Monocyte# 0.53 X10^3/uL; NRBC Flagged by Analyzer 0 % (0-5); Neutrophil # 5.01 X10^3/uL (2.7-7.7); Neutrophil % 65.7 % (47-70); Platelet Count 275 K/mm3 (150-450); RBC Distribution Width CV 13.9 % (11.6-14.6); Red Blood Count 2.95 M/mm3 (4.2-5.4); White Blood Count 7.6 K/mm3 (4.4-11.0)
[2021-05-14 10:39] LABS: Anion Gap 6 (5-15); BUN 36 mg/dL (7-18); BUN/Creat Ratio 5.6 RATIO (10-20); Calcium,Total 8.1 mg/dL (8.5-10.1); Chloride 102 mmol/L (98-107); Creatinine, Serum 6.39 mg/dL (0.55-1.02); EST Glomerular Filtration Rate 7 mL/min (>60); Est Glom Filt Rate - Afr Amer 8 mL/min (>60); Glucose 229 mg/dL (74-106); Potassium 5.6 mmol/L (3.5-5.1); Sodium Level 137 mmol/L (136-145)
[2021-05-15 13:44] LABS: MG Sendout 1.7 mg/dL (1.6-2.3)
== END | disposition home or self-care (01) ==
LOC: OLS.SW1020 04:00
PROVIDERS: PCP Family Medicine; Visit Provider Internal Medicine
DX: N18.6 End stage renal disease (principal); I25.10 Atherosclerotic heart disease of native coronary artery without angina pectoris
CPT/HCPCS: 36415; 80048; 83735; 85025

== ENCOUNTER 2021-05-17 06:05 | Outpatient (REF) | payer MEDICARE, SELFPAY ==
[2021-05-17 09:33] LABS: Magnesium 1.7 mg/dL (1.6-2.6)
== END 2021-05-17 23:59 | disposition home or self-care (01) ==
LOC: OLS.SW1020 06:05
PROVIDERS: PCP Family Medicine; Visit Provider Internal Medicine
DX: E83.42 Hypomagnesemia (principal); N18.6 End stage renal disease
CPT/HCPCS: 36415; 83735

== ENCOUNTER → 2021-05-21 | Outpatient (REF) | payer MEDICARE, SELFPAY ==
[2021-05-21 09:06] LABS: Hematocrit 33.4 % (37-47); Hemoglobin 10.7 g/dL (12.0-15.0); Mean Corpuscular Hgb 34.1 pg (27.0-32.0); Mean Corpuscular Volume 106.4 fL (81-99); Platelet Count 261 K/mm3 (150-450); RBC Distribution Width CV 14.9 % (11.6-14.6); Red Blood Count 3.14 M/mm3 (4.2-5.4); White Blood Count 5.8 K/mm3 (4.4-11.0)
[2021-05-21 09:31] LABS: BUN 35 mg/dL (7-18); Creatinine, Serum 6.24 mg/dL (0.55-1.02); EST Glomerular Filtration Rate 7 mL/min (>60); Glucose 174 mg/dL (74-106)
[2021-05-21 09:32] LABS: Anion Gap 10 (5-15); BUN/Creat Ratio 5.6 RATIO (10-20); Calcium,Total 8.3 mg/dL (8.5-10.1); Chloride 98 mmol/L (98-107); Est Glom Filt Rate - Afr Amer 8 mL/min (>60); Magnesium 1.9 mg/dL (1.6-2.6); Potassium 4.9 mmol/L (3.5-5.1); Sodium Level 136 mmol/L (136-145)
== END | disposition home or self-care (01) ==
LOC: OLS.SW1020 04:00
PROVIDERS: PCP Family Medicine; Referring Provider Internal Medicine; Visit Provider Internal Medicine
DX: I25.10 Atherosclerotic heart disease of native coronary artery without angina pectoris (principal); N18.6 End stage renal disease
CPT/HCPCS: 36415; 80048; 83735; 85027

== ENCOUNTER 2021-06-13 15:09 | Outpatient (CLI) | payer MEDICARE, SELFPAY ==
--- NOTE | 2021-06-13 15:20 | RAD_ITS ---
INDICATION: PD CATHETER PLACEMENT EXAMINATION/TECHNIQUE: X-RAY - XR Abdomen 1 View COMPARISON: Abdomen radiograph from 03/30/2021. FINDINGS/ RAD/Abdomen Single View IMPRESSION: There is a peritoneal drainage catheter curled within the pelvis with the tip projecting just right of midline at the level of the sacrococcygeal junction. Normal nonobstructive bowel gas pattern. Surgical tacks from ventral hernia repair. No abnormal radiopaque foreign bodies. Mild levoscoliotic curvature of the lumbar spine. Moderate to severe multilevel degenerative changes of the spine. Moderate bilateral femoral acetabular joint osteoarthritis. No acute findings in the bones. Joint spaces are intact. Electronically Signed: Papo Isidro, at 16:26 EDT ,
== END 2021-06-13 23:59 | disposition home or self-care (01) ==
LOC: RAD 15:11
PROVIDERS: PCP Family Medicine; Referring Provider Internal Medicine Nephrology; Visit Provider Internal Medicine Nephrology
DX: Z01.818 Encounter for other preprocedural examination (principal)
CPT/HCPCS: 74018

== ENCOUNTER 2021-07-22 18:37 | Inpatient (IN) | payer MEDICARE, SELFPAY ==
[2021-07-22] VITALS (8 sets, daily range): BP systolic 79–126; BP diastolic 39–54; PULSE 83–95; RESP 13–19; TEMP 35.9–37.2; O2SAT 95–100; BMI 34.0
--- NOTE | 2021-07-22 19:01 | RAD_ITS ---
INDICATION: weakness EXAMINATION/TECHNIQUE: X-RAY - XR Chest 1 View COMPARISON: 03/30/2021 chest x-ray FINDINGS: LINES/DEVICES: Left chest cardiac pacing device with 2 leads projecting over right atrium and right ventricle. LUNGS: Symmetric normal lung volumes. No airspace opacity or abnormal interstitial pattern. No nodule or mass. No pleural effusion or pneumothorax. MEDIASTINUM AND CARDIOVASCULAR STRUCTURES: Normal size and contour of the cardiomediastinal silhouette. No evidence of pulmonary vascular congestion. Thoracic aortic arch atherosclerosis. BONES AND SOFT TISSUES: Advanced degenerative changes bilateral shoulders with intra-articular loose bodies versus possible sclerotic lesion left scapula, unchanged compared with 03/30/2021. RAD/Chest 1 View (Portable) IMPRESSION: 1. No radiographic evidence of acute cardiopulmonary disease. Electronically Signed: Vernon Swenson DO at 21:31 EDT ,
--- NOTE | 2021-07-22 19:01 | EKG12_ITS ---
Test Reason : WEAKNESS Blood Pressure : / mmHG Vent. Rate : 090 BPM Atrial Rate : 090 BPM P-R Int : 214 ms QRS Dur : 100 ms QT Int : 404 ms P-R-T Axes : 058 009 075 degrees QTc Int : 494 ms Sinus rhythm with 1st degree A-V block with Premature atrial complexes Nonspecific ST abnormality Prolonged QT Abnormal ECG Confirmed by WILL TAYLOR, EDIN ([id number]), news videotape editor LENNOX MOCTEZUMA ([id number]) on 07/24/2021 11:14:58 AM Referred By: Confirmed By:EDIN SOLIS MD
--- NOTE | 2021-07-22 19:03 | EX.ED.DYSGE1 ---
HPI History of Present Illness Chief Complaint: Weakness Detail of Chief Complaint: Generalized weakness for about 2 weeks Informant: patient Narrative Narrative: Patient presents to the emergency department with family members to bring her in for this generalized weakness has been going on for at least 2 weeks. Patient really has not walked in the last week and has been in bed. Family is noticed that her blood pressures been running low for about a week. Patient started with some diarrhea last evening and she is had some nausea. She complains of occasional abdominal discomfort. She is a peritoneal dialysis patient. Patient in February of last year had pacemaker and defibrillator placed. She denies any chest pain or shortness of breath. She denies any fevers. 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) Recurrent syncope (03/28/21) Stage 3 chronic kidney disease Stenosis of left carotid artery Torsades de pointes (03/28/21) Transient visual loss, right eye (11/2020) Type II diabetes mellitus Ventricular tachycardia Vitamin B 12 deficiency Home Medications amlodipine 10 mg tablet 10 mg PO DAILY 10/12/18 [History Last Taken Unknown] atorvastatin 80 mg tablet 80 mg PO QHS 10/12/18 [History Last Taken Unknown] omeprazole 40 mg capsule,delayed release 40 mg PO DAILY 10/12/18 [History Last Taken Unknown] albuterol sulfate 90 mcg/actuation aerosol inhaler 2 puff INHALATION Q4H PRN g 10/13/18 [History Last Taken Unknown] calcitriol 0.25 mcg capsule 0.25 mcg PO .COMPLEX cap 10/26/19 [History Last Taken Unknown] latanoprost 0.005 % eye drops 1 drp OPHTHALMIC BID ml 10/26/19 [History Last Taken Unknown] montelukast 10 mg tablet 10 mg PO DAILY 10/26/19 [History Last Taken Unknown] fluticasone propionate [Flovent HFA] 1 puff INHALATION BID 03/28/21 [History Last Taken Unknown] insulin glargine [Lantus Solostar U-100 Insulin] 8 unit SUBCUT BID 03/28/21 [History Last Taken Unknown] pioglitazone 15 mg PO DAILY 03/28/21 [History Last Taken Unknown] carvedilol 6.25 mg tablet 6.25 mg PO BID 04/13/21 [History Last Taken Unknown] diclofenac 1 % topical gel and kinesiology tape 1 ea TOPICAL DAILY PRN 04/13/21 [History Last Taken Unknown] lidocaine 4 % topical patch 1 patch TOPICAL DAILY PRN 04/13/21 [History Last Taken Unknown] losartan 50 mg tablet 50 mg PO DAILY 04/13/21 [History Last Taken Unknown] polyethylene glycol 3350 17 gram oral powder packet 17 g PO DAILY 04/13/21 [History Last Taken Unknown] sennosides 8.6 mg tablet 8.6 mg PO BID 04/13/21 [History Last Taken Unknown] tiotropium bromide 2.5 mcg/actuation mist for inhalation 2 puff INHALATION QAM 04/13/21 [History Last Taken Unknown] acetaminophen 325 mg tablet 650 mg PO Q4H PRN tab 05/10/21 [History Last Taken Unknown] bisacodyl 10 mg rectal suppository 10 mg SC DAILY PRN 05/10/21 [History Last Taken Unknown] buspirone 5 mg tablet 5 mg PO BID 05/10/21 [History Last Taken Unknown] cyanocobalamin (vitamin B-12) 2,500 mcg sublingual tablet 2,500 mcg SUBLINGUAL QWEEK tab 05/10/21 [History Last Taken Unknown] ergocalciferol (vitamin D2) 50,000 unit tablet 50,000 unit PO QWEEK tab 05/10/21 [History Last Taken Unknown] furosemide 80 mg tablet 80 mg PO QAM 05/10/21 [History Last Taken Unknown] gentamicin 0.1 % topical cream 1 applic TOPICAL DAILY g 05/10/21 [History Last Taken Unknown] insulin lispro 100 unit/mL subcutaneous pen 1 sliding scale dose SUBCUT USEASDIRECTD 05/10/21 [History Last Taken Unknown] ipratropium 0.5 mg-albuterol 3 mg (2.5 mg base)/3 mL nebulization soln 3 ml INHALATION Q6H PRN 05/10/21 [History Last Taken Unknown] levothyroxine 137 mcg tablet 137 mcg PO DAILY tab 05/10/21 [History Last Taken Unknown] magnesium hydroxide 400 mg/5 mL oral suspension 30 ml PO DAILY PRN ml 05/10/21 [History Last Taken Unknown] magnesium oxide 400 mg PO DAILY #30 tab 05/10/21 [Rx Last Taken Unknown] potassium chloride 20 mEq tablet,extended release 20 meq PO DAILY 05/10/21 [History Last Taken Unknown] Allergy/AdvReac Type Severity Reaction Status Date / Time metformin [From Glucophage] Allergy Severe renal Verified 07/22/21 18:39 failure adhesive Allergy Intermediate blisters Verified 07/22/21 18:39 oxycodone Allergy Intermediate hallucinati Verified 07/22/21 18:39 ons tramadol Allergy Intermediate Vomiting Verified 07/22/21 18:39 ERIC Inhibitors AdvReac Intermediate cough Verified 07/22/21 18:39 Family History Father Heart disease Hypertension Suicide Mother Hypertension CVA (cerebral vascular accident) COPD (chronic obstructive pulmonary disease) CAD (coronary artery disease) Surgical History History of bilateral knee replacement (1989) History of breast biopsy History of implantable cardiac defibrillator (ICD) (04/02/21) History of left heart catheterization (03/28/21) History of open reduction and internal fixation (ORIF) procedure History of right cataract extraction (10/03/11) History of temporary cardiac pacemaker treatment (03/28/21) History of tonsillectomy Social History household members: none Smoking Status: Never smoker alcohol intake: never substance use type: does not use caffeine: Yes Type: coffee Number of servings: 2 ROS ROS ED Constitutional Constitutional ED: Reports systems reviewed and no addt'l complaints, except as documented; Denies body ache(s), change in weight or chills Eyes Eyes: Denies acute decrease in peripheral vision, change in vision, double vision or loss of vision ENT ENT ED: Reports none; Denies ear pain, lip swelling, loss taste/smell, neck pain, otalgia or sore throat Cardiovascular Cardiovascular: Reports none; Denies abdominal pain, chest pain with activity, leg edema, lightheadedness, palpitations, rapid heart rate or syncope Respiratory/Chest Respiratory/Chest: Reports none; Denies change in mental status, dry cough, dyspnea, hemoptysis, shortness of breath at rest or shortness of breath with exertion Gastrointestinal Gastrointestinal: Reports none, diarrhea and nausea; Denies abdominal pain, change in stool character, hematemesis, hematochezia, melena, rectal bleeding or vomiting Genitourinary Genitourinary ED: Reports none; Denies abdominal discomfort, anuria, dysuria, genital pain or polyuria Musculoskeletal Musculoskeletal: Reports none; Denies arthralgias, back pain, difficulty walking, extremity pain, muscle weakness or myalgias Integumentary Reports none; Denies abscess or rash Neurologic Neurologic: Reports none and weakness; Denies abnormal gait, confusion, focal weakness, frequent falls, headache(s), loss of vision, numbness, paresthesias, radicular pain or vertigo Psychiatric Psychiatric: Reports systems reviewed and no addt'l complaints, except as documented and none; Denies behavioral changes, confusion, difficulty concentrating, hallucinations, suicidal ideation, tactile hallucinations or visual hallucinations Endocrine Endocrinology: Denies none, cold intolerance, excessive sweating, fatigue or heat intolerance Hematologic/Lymphatic Hematologic/Lymphatic: Reports none; Denies anemia, easy bleeding or easy bruising Allergic/Immunologic Allergic/Immunologic ED: Denies as per HPI, none, lip swelling, mouth swelling, throat swelling, tongue swelling or hives EXAM Physical Exam Const Vital Signs: 07/22/21 18:37 07/22/21 19:10 07/22/21 19:54 Temperature 96.7 F L Temperature Source Temporal Pulse Rate 95 83 Respiratory Rate 16 15 Respiratory Effort Normal Non-Labored Blood Pressure 88/39 L 100/52 L Blood Pressure Mean 55 68 Pulse Ox 95 97 Oxygen Delivery Method Room Air 07/22/21 19:59 07/22/21 20:02 07/22/21 21:18 Temperature Temperature Source Pulse Rate 88 Respiratory Rate 13 Respiratory Effort Blood Pressure 98/42 L 100/52 L 79/45 L Blood Pressure Mean 60 68 56 Pulse Ox 100 Oxygen Delivery Method Room Air 07/22/21 21:27 07/22/21 22:25 Temperature 98.9 F Temperature Source Temporal Pulse Rate 91 90 Respiratory Rate 19 H 18 Respiratory Effort Blood Pressure 89/50 L 120/50 L Blood Pressure Mean 63 73 Pulse Ox 95 100 Oxygen Delivery Method Room Air Room Air Positive well nourished and well developed General Appearance ED: well developed and NAD HEENT Reports TM's clear and moist mucous membranes normocephalic and atraumatic; Negative for trauma or tenderness Tympanic Membrane ED: Yes TM's clear Eyes PERRL and EOMs intact bilaterally General Eye ED: Negative for pale conjunctiva or scleral icterus Neck no lymphadenopathy, supple and no JVD General: Negative for tenderness Chest Wall inspection of chest normal and palpation of chest normal Chest: Negative for tenderness Resp normal respiratory effort and clear to auscultation bilaterally Effort and Inspection: Negative for respiratory distress or pain with movement Auscultation: Negative for rhonchi, wheezes or diminished lung sounds Cardio regular rate, regular rhythm, S1 normal heart sound, S2 normal heart sound and no murmurs Peripheral Pulses: pulses 2+ throughout GI normal to inspection, nondistended, normoactive bowel sounds, soft to palpation, non-tender, non-distended and no masses Back/Spine no CVA tenderness and no thoracic nor lumbar tenderness Extremity normal to inspection General Extremety ED: Negative for edema General Extremity: Negative for edema Neuro oriented x3, CN's II-XII intact bilaterally, no sensory deficits noted and gait normal Sensorium / Orientation: awake, alert, oriented to person, oriented to place and oriented to time Motor Exam: strength 5/5 throughout and strength abnormal Psych mental status grossly normal Skin no rashes or lesions noted and no wounds MDM MDM MDM Narrative Medical decision making narrative: IV line established and she was given a liter normal same fluid bolus. Blood pressure initially responded but started to drop again and she was given a second liter of normal saline fluid and again her blood pressure responded with systolic now in the 120s. Patient does have a slight elevation in her WBC count of 12.8. Lactate was elevated 2.7. Patient had a low potassium of 2.2 for which I did order 40 mEq of potassium IV. Given the complaint of abdominal pain and history of peritoneal dialysis I did obtain a CT scan of the abdomen pelvis that showed small amount of free air without evidence of other acute disease process. I discussed findings with the radiologist and he feels this is likely due to her peritoneal dialysis. It is relatively common to find free air in patients with peritoneal dialysis. Clinically I do not feel she has an acute abdomen or acute peritonitis. Patient will be evaluated by hospitalist for admission. Patient's family state that she frequently complains of abdominal pain and has no pain tolerance. Patient apparently was evaluated for peritonitis recently and they were given the option of hemodialysis which the family did not want to pursue. Patient apparently was treated with antibiotics for suspected peritonitis or catheter infection and then the fluid was tested 2 weeks ago and did not show signs of infection. Lab Data Attestation: I reviewed the patient's lab results. Labs: Laboratory Results - last 24 hr 07/22/21 07/22/21 07/22/21 19:30 19:30 19:30 WBC 12.8 H RBC 3.96 L Hgb 13.2 Hct 39.3 MCV 99.2 H MCH 33.3 H MCHC 33.6 RDW Std Deviation 55.1 H RDW Coeff of Alanna 15.1 H Plt Count 287 MPV 9.7 Immature Gran % (Auto) 0.800 Neut % (Auto) 76.1 H Lymph % (Auto) 16.1 L Placer % (Auto) 6.0 Eos % (Auto) 0.7 Baso % (Auto) 0.3 Absolute Neuts (auto) 9.8 H Absolute Lymphs (auto) 2.07 Nucleated RBC % 0 Sodium 135 L Potassium 2.2 L* Chloride 95 L Carbon Dioxide 26.0 Anion Gap 14 BUN 30 H Creatinine 6.77 H Estim Creat Clear Calc 5.08 Est GFR (MDRD) Af Amer 8 L Est GFR (MDRD) Non-Af 6 L BUN/Creatinine Ratio 4.4 L Glucose 170 H Lactic Acid 2.7 H* Calcium 8.9 Total Bilirubin 0.30 AST 34 ALT 20 Alkaline Phosphatase 146 H Troponin I High Sens 170 H* Total Protein 6.4 Albumin 1.6 L Globulin 4.8 H Albumin/Globulin Ratio 0.3 L Urine Color Urine Clarity Urine pH Ur Specific [place] Urine Protein Urine Glucose (UA) Urine Ketones Urine Occult Blood Urine Nitrite Urine Bilirubin Urine Urobilinogen Ur Leukocyte Esterase Urine RBC Urine WBC Ur Squamous Epith Cells Urine Bacteria Urine Mucus POC Glucose 07/22/21 07/22/21 19:55 21:00 WBC RBC Hgb Hct MCV MCH MCHC RDW Std Deviation RDW Coeff of Alanna Plt Count MPV Immature Gran % (Auto) Neut % (Auto) Lymph % (Auto) Placer % (Auto) Eos % (Auto) Baso % (Auto) Absolute Neuts (auto) Absolute Lymphs (auto) Nucleated RBC % Sodium Potassium Chloride Carbon Dioxide Anion Gap BUN Creatinine Estim Creat Clear Calc Est GFR (MDRD) Af Amer Est GFR (MDRD) Non-Af BUN/Creatinine Ratio Glucose Lactic Acid Calcium Total Bilirubin AST ALT Alkaline Phosphatase Troponin I High Sens Total Protein Albumin Globulin Albumin/Globulin Ratio Urine Color [place] Urine Clarity Clear Urine pH 5.0 Ur Specific [place] 1.020 Urine Protein 100 H Urine Glucose (UA) Normal Urine Ketones 5 H Urine Occult Blood 10 H Urine Nitrite Negative Urine Bilirubin 6 H Urine Urobilinogen Normal Ur Leukocyte Esterase 25 H Urine RBC 0 SEEN Urine WBC 0 SEEN Ur Squamous Epith Cells 0 SEEN Urine Bacteria 0 SEEN Urine Mucus 0 SEEN POC Glucose 151 H Radiography Diagnostic Testing: Clinical Impression(s) from Imaging Studies Chest X-Ray 07/22/21 19:01 IMPRESSION: 1. No radiographic evidence of acute cardiopulmonary disease. Electronically Signed: Vernon Swenson DO at 21:31 EDT , Abdomen/Pelvis CT 07/22/21 21:34 IMPRESSION: Small amount of free air in the upper abdomen suspected of the associated with peritoneal dialysis catheter. No other evidence of acute intra-abdominal pathology. Mildly increased density of the gallbladder may be associated with cholestasis. No stone, gallbladder wall thickening however evidence of acute gallbladder pathology. Consider correlation with ultrasound. 15 mm exophytic hypodensity inferior pole left kidney suggesting cyst however ultrasound or contrast-enhanced CT would be needed to confirm. Lower limit normal size kidneys with minimal cortical thinning may be indicative of chronic renal insufficiency. Correlate clinically. Dense atherosclerosis abdominal aorta and at the origin of the right, greater than left renal arteries and right common iliac artery may be associated with vascular stenosis. Evidence of prior umbilical hernia repair with mesh. Severe central spinal canal stenosis. Significant, diffuse sarcopenia. N.B. : The above Results were Read Back by Vernon Swenson DO to Dr Jennifer MD, and understanding confirmed on 07/22/2021 22:55:31 (ET). Electronically Signed: Vernon Swenson DO at 23:04 EDT , 1 view chest x-ray obtained interpreted by myself as no acute disease process. Radiology in agreement. EKG Initial EKG: Attestation: I personally reviewed and interpreted this EKG as follows: Comments: Sinus rhythm with a rate of 90 bpm with first-degree AV block and nonspecific ST changes Discharge Plan Dx/Rx/DC Orders Clinical Impression: Acute hypokalemia, Weakness, Dehydration, Hypotension, Abdominal pain Disposition Disposition: Acute Care Hospital [facility]
[2021-07-22] MEDS: 0.9% Normal Saline 1,000 ML 1000 ML IV (19:32)
[2021-07-22 19:46] LABS: Absolute Lymphocyte Count 2.07 X10^3/uL (0.83-4.51); Absolute Neutrophil Count 9.8 X10^3/uL (2.0-7.7); Basophil# 0.04 X10^3/uL; Basophil% 0.3 % (0-1); Eosinophil# 0.09 X10^3/uL; Eosinophils% 0.7 % (0-5); Hematocrit 39.3 % (37-47); Hemoglobin 13.2 g/dL (12.0-15.0); Lymphocyte # 2.07 X10^3/ul (0.83-4.51); Lymphocyte % 16.1 % (19-41); Mean Corp Hgb Conc 33.6 g/dL (32-36); Mean Corpuscular Hgb 33.3 pg (27.0-32.0); Mean Corpuscular Volume 99.2 fL (81-99); Mean Platelet Vol. 9.7 fl (6.2-12.0); Monocyte# 0.77 X10^3/uL; NRBC Flagged by Analyzer 0 % (0-5); Neutrophil # 9.76 X10^3/uL (2.7-7.7); Neutrophil % 76.1 % (47-70); Platelet Count 287 K/mm3 (150-450); RBC Distribution Width CV 15.1 % (11.6-14.6); RBC Distribution Width SD 55.1 fl (35.1-43.9); Red Blood Count 3.96 M/mm3 (4.2-5.4); White Blood Count 12.8 K/mm3 (4.4-11.0)
[2021-07-22 20:01] LABS: Bedside Glucose 151 mg/dL (74-106)
[2021-07-22 20:13] LABS: ALB/GLOB Ratio 0.3 RATIO (0.9-2.4); AST(SGOT) 34 U/L (15-37); Alanine Aminotransfer ALT/SGPT 20 U/L (13-56); Albumin, Serum 1.6 g/dL (3.2-5.0); Alkaline Phosphatase 146 U/L (45-117); Anion Gap 14 (5-15); BUN 30 mg/dL (7-18); BUN/Creat Ratio 4.4 RATIO (10-20); Calcium,Total 8.9 mg/dL (8.5-10.1); Chloride 95 mmol/L (98-107); Creatinine, Serum 6.77 mg/dL (0.55-1.02); EST Glomerular Filtration Rate 6 mL/min (>60); Est Glom Filt Rate - Afr Amer 8 mL/min (>60); Estimated Creatinine Clearance 5.08 ml/min; Globulin 4.8 g/dL (2.2-4.2); Glucose 170 mg/dL (74-106); Potassium 2.2 mmol/L (3.5-5.1); Protein, Total 6.4 g/dL (6.4-8.2); Sodium Level 135 mmol/L (136-145); Troponin-I HS 170 pg/mL (3.0-54.0)
[2021-07-22 20:16] LABS: Lactic Acid 2.7 mmol/L (0.4-1.9)
[2021-07-22 21:09] LABS: Bacteria 0 SEEN /hpf (None Seen); Mucous, Urine 0 SEEN /hpf (<or=2+); Red Blood Cells-Urine 0 SEEN /hpf (0-5); Squamous Epithelial Cells - UA 0 SEEN /hpf (5-10); White Blood Cells 0 SEEN /hpf (0-5)
[2021-07-22 21:10] LABS: Color, Urine Amber (Yellow); Glucose, Dipstick Normal (Normal); Ketone-Dipstick 5 mg/dl (Negative); Leukocyte Esterase-Dipstick 25 /ul (Negative); Nitrite-Dipstick Negative (Negative); Occult Blood-Urine 10 /ul (Negative); Protein-Dipstick 100 mg/dl (Negative); Urine Clarity Clear (Clear); Urine Urobilinogen Normal (Normal)
--- NOTE | 2021-07-22 21:15 | ED.RN ---
Addendum entered by Hermelinda Sandhu 07/22/21 21:54: BP TAKEN MANUALLY Original Note: DR MATA NOTIFIED OF PT BP 89/50, ANOTHER LITER OF NORMAL SALINE ORDERED.
[2021-07-22] MEDS: Potassium Chloride 10mEq/100mL 10 MEQ/100 ML IV.SOLN. 100 MEQ IV BOLUS ×3 (21:25→23:29)
[2021-07-22] MEDS: 0.9% Normal Saline 1,000 ML 999 ML IV (21:26)
[2021-07-22 21:29] LABS: Urine Bilirubin Dipstick 6 mg/dL (Negative)
--- NOTE | 2021-07-22 21:34 | CT_ITS ---
She should she is taking a is near that in general showing abnormally visible nodules posterior TYLENOL and she is in [employer] TYLENOL and ADVIL she can take narcotic is Dr. Ac ER and the etiology remains nonspecific again INDICATION: abdominal pain EXAMINATION: CT ABDOMEN AND PELVIS WITHOUT CONTRAST - CT Abdomen And Pelvis W/O Contrast Injection TECHNIQUE: Helically acquired images were obtained of the abdomen and pelvis without oral or IV contrast. A radiation dose optimization technique was used for this scan. IV Contrast dosage and agent: None. Oral contrast: None. COMPARISON: Chest x-ray 07/22/2021 and abdominal x-ray 06/17/2021. FINDINGS: LOWER CHEST: Lung bases are clear. No cardiomegaly or pericardial effusion. LIVER: Homogeneous. No focal mass. GALLBLADDER AND BILIARY TREE: Mildly increased density in the gallbladder may represent cholestasis. No gallbladder stone. No intra or extrahepatic biliary ductal dilation. No gallbladder distension or wall edema. PANCREAS: Moderate fatty atrophy. SPLEEN: Normal size without focal cystic or solid mass. ADRENAL GLANDS: No nodules. KIDNEYS, URETERS and BLADDER: Lower limit normal renal size with mild cortical thinning. Correlate clinically for renal function. Normal position. Normal position. 15 mm hypodensity inferior pole left kidney may represent simple cyst. Ultrasound or contrast enhanced exam would be to confirm. No hydronephrosis. Bladder is unremarkable. PERITONEUM: No ascites. No other fluid collection. There is a percutaneous catheter between the urinary bladder and uterus. This is a probable source of the small amount of intra-abdominal gas. BOWEL: Normal visualized appendix. No evidence of appendicitis. No abnormally distended bowel loops or air fluid levels. No wall thickening or mass. No focal inflammatory changes. LYMPH NODES: No enlarged mesenteric or retroperitoneal lymph nodes. VESSELS: Dense calcifications abdominal aorta and at the origin of the right, greater than left renal arteries may be associated with stenosis. Potential stenosis right common iliac artery with dense calcifications. REPRODUCTIVE ORGANS: Within normal limits for age. ABDOMINAL WALL: Periumbilical metallic densities as can be seen with hernia mesh repair. Mesh not clearly visualized. There is a small fat filled umbilical hernia. There is diffuse atrophy of the visualized muscles throughout the field of view. BONES: Significant degenerative changes spine and pelvis as well as bilateral hips . No fracture. No focal osseous lesion. There is severe central spinal canal bony narrowing lumbar spine, chronic. CT/Abdomen/Pelvis without Cont IMPRESSION: Small amount of free air in the upper abdomen suspected of the associated with peritoneal dialysis catheter. No other evidence of acute intra-abdominal pathology. Mildly increased density of the gallbladder may be associated with cholestasis. No stone, gallbladder wall thickening however evidence of acute gallbladder pathology. Consider correlation with ultrasound. 15 mm exophytic hypodensity inferior pole left kidney suggesting cyst however ultrasound or contrast-enhanced CT would be needed to confirm. Lower limit normal size kidneys with minimal cortical thinning may be indicative of chronic renal insufficiency. Correlate clinically. Dense atherosclerosis abdominal aorta and at the origin of the right, greater than left renal arteries and right common iliac artery may be associated with vascular stenosis. Evidence of prior umbilical hernia repair with mesh. Severe central spinal canal stenosis. Significant, diffuse sarcopenia. N.B. : The above Results were Read Back by Vernon Swenson DO to Dr Jennifer MD, and understanding confirmed on 07/22/2021 22:55:31 (ET). Electronically Signed: Vernon Swenson DO at 23:04 EDT ,
[2021-07-22 23:45] LABS: Reflex Lactate? Y
--- NOTE | 2021-07-22 23:52 | HP.PCM.HOS_ITS ---
HPI - General General Date of Admission: 07/22/21 HPI Narrative Chalino WHELAN, is a 81 F who presents to the hospital with weakness and chills. The weakness has been progressing over the last week and a half as she has not been eating or drinking according to family. She is also been feeling chilled without fevers or signs of infection. In May there was concern for infection around her peritoneal dialysis catheter, this was treated with antibiotics and fluid that was removed was negative for an infection/SBP. CT scan today because has been complaining of abdominal pain showed some free air which is consistent with peritoneal dialysis and family states that she continually complains of abdominal pain. 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) Recurrent syncope (03/28/21) Stage 3 chronic kidney disease Stenosis of left carotid artery Torsades de pointes (03/28/21) Transient visual loss, right eye (11/2020) Type II diabetes mellitus Ventricular tachycardia Vitamin B 12 deficiency Home Medications amlodipine 10 mg tablet 10 mg PO DAILY 10/12/18 [History Last Taken Unknown] atorvastatin 80 mg tablet 80 mg PO QHS 10/12/18 [History Last Taken Unknown] omeprazole 40 mg capsule,delayed release 40 mg PO DAILY 10/12/18 [History Last Taken Unknown] albuterol sulfate 90 mcg/actuation aerosol inhaler 2 puff INHALATION Q4H PRN g 10/13/18 [History Last Taken Unknown] calcitriol 0.25 mcg capsule 0.25 mcg PO .COMPLEX cap 10/26/19 [History Last Taken Unknown] latanoprost 0.005 % eye drops 1 drp OPHTHALMIC BID ml 10/26/19 [History Last Taken Unknown] montelukast 10 mg tablet 10 mg PO DAILY 10/26/19 [History Last Taken Unknown] fluticasone propionate [Flovent HFA] 1 puff INHALATION BID 03/28/21 [History Last Taken Unknown] insulin glargine [Lantus Solostar U-100 Insulin] 8 unit SUBCUT BID 03/28/21 [History Last Taken Unknown] pioglitazone 15 mg PO DAILY 03/28/21 [History Last Taken Unknown] carvedilol 6.25 mg tablet 6.25 mg PO BID 04/13/21 [History Last Taken Unknown] diclofenac 1 % topical gel and kinesiology tape 1 ea TOPICAL DAILY PRN 04/13/21 [History Last Taken Unknown] lidocaine 4 % topical patch 1 patch TOPICAL DAILY PRN 04/13/21 [History Last Taken Unknown] losartan 50 mg tablet 50 mg PO DAILY 04/13/21 [History Last Taken Unknown] polyethylene glycol 3350 17 gram oral powder packet 17 g PO DAILY 04/13/21 [History Last Taken Unknown] sennosides 8.6 mg tablet 8.6 mg PO BID 04/13/21 [History Last Taken Unknown] tiotropium bromide 2.5 mcg/actuation mist for inhalation 2 puff INHALATION QAM 04/13/21 [History Last Taken Unknown] acetaminophen 325 mg tablet 650 mg PO Q4H PRN tab 05/10/21 [History Last Taken Unknown] bisacodyl 10 mg rectal suppository 10 mg OK DAILY PRN 05/10/21 [History Last Taken Unknown] buspirone 5 mg tablet 5 mg PO BID 05/10/21 [History Last Taken Unknown] cyanocobalamin (vitamin B-12) 2,500 mcg sublingual tablet 2,500 mcg SUBLINGUAL QWEEK tab 05/10/21 [History Last Taken Unknown] ergocalciferol (vitamin D2) 50,000 unit tablet 50,000 unit PO QWEEK tab 05/10/21 [History Last Taken Unknown] furosemide 80 mg tablet 80 mg PO QAM 05/10/21 [History Last Taken Unknown] gentamicin 0.1 % topical cream 1 applic TOPICAL DAILY g 05/10/21 [History Last Taken Unknown] insulin lispro 100 unit/mL subcutaneous pen 1 sliding scale dose SUBCUT USEASDIRECTD 05/10/21 [History Last Taken Unknown] ipratropium 0.5 mg-albuterol 3 mg (2.5 mg base)/3 mL nebulization soln 3 ml INHALATION Q6H PRN 05/10/21 [History Last Taken Unknown] levothyroxine 137 mcg tablet 137 mcg PO DAILY tab 05/10/21 [History Last Taken Unknown] magnesium hydroxide 400 mg/5 mL oral suspension 30 ml PO DAILY PRN ml 05/10/21 [History Last Taken Unknown] magnesium oxide 400 mg PO DAILY #30 tab 05/10/21 [Rx Last Taken Unknown] potassium chloride 20 mEq tablet,extended release 20 meq PO DAILY 05/10/21 [History Last Taken Unknown] Allergy/AdvReac Type Severity Reaction Status Date / Time metformin [From Glucophage] Allergy Severe renal Verified 07/22/21 18:39 failure adhesive Allergy Intermediate blisters Verified 07/22/21 18:39 oxycodone Allergy Intermediate hallucinati Verified 07/22/21 18:39 ons tramadol Allergy Intermediate Vomiting Verified 07/22/21 18:39 ERIC Inhibitors AdvReac Intermediate cough Verified 07/22/21 18:39 Family History Father Heart disease Hypertension Suicide Mother Hypertension CVA (cerebral vascular accident) COPD (chronic obstructive pulmonary disease) CAD (coronary artery disease) Surgical History History of bilateral knee replacement (1989) History of breast biopsy History of implantable cardiac defibrillator (ICD) (04/02/21) History of left heart catheterization (03/28/21) History of open reduction and internal fixation (ORIF) procedure History of right cataract extraction (10/03/11) History of temporary cardiac pacemaker treatment (03/28/21) History of tonsillectomy Social History household members: none Smoking Status: Never smoker alcohol intake: never substance use type: does not use caffeine: Yes Type: coffee Number of servings: 2 ROS Constitutional Constitutional: Reports chills and weakness; Denies fatigue, fever(s) or malaise Eyes Eyes: Denies blurry vision ENT HEENT: Denies headache(s) or nasal discharge Cardiovascular Cardiovascular: Denies chest pain, dyspnea on exertion or syncope Respiratory/Chest Respiratory/Chest: Denies cough, shortness of breath at rest or shortness of breath with exertion Gastrointestinal Gastrointestinal: Denies constipation, diarrhea, nausea or vomiting Genitourinary Genitourinary: Denies dysuria Neurologic Neurologic: Denies focal weakness, numbness or tremor(s) Psychiatric Psychiatric: Denies anxiety or depression Vital Signs Vital Signs Vital Signs: 07/22/21 18:37 07/22/21 19:10 07/22/21 19:54 Temperature 96.7 F L Temperature Source Temporal Pulse Rate 95 83 Respiratory Rate 16 15 Respiratory Effort Normal Non-Labored Blood Pressure 88/39 L 100/52 L Blood Pressure Mean 55 68 Pulse Ox 95 97 Oxygen Delivery Method Room Air 07/22/21 19:59 07/22/21 20:02 07/22/21 21:18 Temperature Temperature Source Pulse Rate 88 Respiratory Rate 13 Respiratory Effort Blood Pressure 98/42 L 100/52 L 79/45 L Blood Pressure Mean 60 68 56 Pulse Ox 100 Oxygen Delivery Method Room Air 07/22/21 21:27 07/22/21 22:25 07/22/21 23:18 Temperature 98.9 F 98.0 F Temperature Source Temporal Temporal Pulse Rate 91 90 93 Respiratory Rate 19 H 18 15 Respiratory Effort Blood Pressure 89/50 L 120/50 L 126/54 H Blood Pressure Mean 63 73 78 Pulse Ox 95 100 100 Oxygen Delivery Method Room Air Room Air Room Air Weight Weight: 180 lb Body Mass Index (BMI) 34.0 Physical Exam Const alert and oriented x3 General Appearance: cooperative HEENT normocephalic Mouth: dry mucous membranes Eyes PERRL, EOMs intact bilaterally and conjunctivae normal Neck supple and no JVD Resp normal respiratory effort, no retractions, no use of accessory muscles and clear to auscultation bilaterally Auscultation: Negative for crackles, rales, rhonchi or wheezes Cardio regular rate, regular rhythm, S1 normal heart sound, S2 normal heart sound and no murmurs GI soft to palpation and non-distended; Negative for hepatosplenomegaly GI Narrative: Minimally tender in her lower abdomen Extremity no clubbing, cyanosis or edema Skin no rashes or lesions noted Neuro no focal motor deficits and no sensory deficits noted Psych affect normal Appearance: appropriate Results Lab / Micro Data Result Diagrams: 07/22/21 19:30 07/22/21 19:30 Labs: Laboratory Results - last 24 hr 07/22/21 19:30: WBC 12.8 H, RBC 3.96 L, Hgb 13.2, Hct 39.3, MCV 99.2 H, MCH 33.3 H, MCHC 33.6, RDW Std Deviation 55.1 H, RDW Coeff of Alanna 15.1 H, Plt Count 287, MPV 9.7, Immature Gran % (Auto) 0.800, Neut % (Auto) 76.1 H, Lymph % (Auto) 16.1 L, [place] % (Auto) 6.0, Eos % (Auto) 0.7, Baso % (Auto) 0.3, Absolute Neuts (auto) 9.8 H, Absolute Lymphs (auto) 2.07, Nucleated RBC % 0 07/22/21 19:30: Sodium 135 L, Potassium 2.2 L*, Chloride 95 L, Carbon Dioxide 26.0, Anion Gap 14, BUN 30 H, Creatinine 6.77 H, Estim Creat Clear Calc 5.08, Est GFR (MDRD) Af Amer 8 L, Est GFR (MDRD) Non-Af 6 L, BUN/Creatinine Ratio 4.4 L, Glucose 170 H, Calcium 8.9, Total Bilirubin 0.30, AST 34, ALT 20, Alkaline Phosphatase 146 H, Troponin I High Sens 170 H*, Total Protein 6.4, Albumin 1.6 L , Globulin 4.8 H, Albumin/Globulin Ratio 0.3 L 07/22/21 19:30: Lactic Acid 2.7 H* 07/22/21 19:55: POC Glucose 151 H 07/22/21 21:00: Urine Color [place], Urine Clarity Clear, Urine pH 5.0, Ur Specific [place] 1.020, Urine Protein 100 H, Urine Glucose (UA) Normal, Urine Ketones 5 H, Urine Occult Blood 10 H, Urine Nitrite Negative, Urine Bilirubin 6 H, Urine Urobilinogen Normal, Ur Leukocyte Esterase 25 H, Urine RBC 0 SEEN, Urine WBC 0 SEEN, Ur Squamous Epith Cells 0 SEEN, Urine Bacteria 0 SEEN, Urine Mucus 0 SEEN Radiology Impression Chest X-Ray 07/22/21 19:01 IMPRESSION: 1. No radiographic evidence of acute cardiopulmonary disease. Electronically Signed: Vernon Swenson DO at 21:31 EDT , Abdomen/Pelvis CT 07/22/21 21:34 IMPRESSION: Small amount of free air in the upper abdomen suspected of the associated with peritoneal dialysis catheter. No other evidence of acute intra-abdominal pathology. Mildly increased density of the gallbladder may be associated with cholestasis. No stone, gallbladder wall thickening however evidence of acute gallbladder pathology. Consider correlation with ultrasound. 15 mm exophytic hypodensity inferior pole left kidney suggesting cyst however ultrasound or contrast-enhanced CT would be needed to confirm. Lower limit normal size kidneys with minimal cortical thinning may be indicative of chronic renal insufficiency. Correlate clinically. Dense atherosclerosis abdominal aorta and at the origin of the right, greater than left renal arteries and right common iliac artery may be associated with vascular stenosis. Evidence of prior umbilical hernia repair with mesh. Severe central spinal canal stenosis. Significant, diffuse sarcopenia. N.B. : The above Results were Read Back by Vernon Swenson DO to Dr Jennifer MD, and understanding confirmed on 07/22/2021 22:55:31 (ET). Electronically Signed: Vernon Swenson DO at 23:04 EDT , ADDENDUM: 07/22/21 2310 IMPRESSION: Small amount of free air in the upper abdomen suspected of the associated with peritoneal dialysis catheter. No other evidence of acute intra-abdominal pathology. Mildly increased density of the gallbladder may be associated with cholestasis. No stone, gallbladder wall thickening however evidence of acute gallbladder pathology. Consider correlation with ultrasound. 15 mm exophytic hypodensity inferior pole left kidney suggesting cyst however ultrasound or contrast-enhanced CT would be needed to confirm. Lower limit normal size kidneys with minimal cortical thinning may be indicative of chronic renal insufficiency. Correlate clinically. Dense atherosclerosis abdominal aorta and at the origin of the right, greater than left renal arteries and right common iliac artery may be associated with vascular stenosis. Evidence of prior umbilical hernia repair with mesh. Severe central spinal canal stenosis. Significant, diffuse sarcopenia. N.B. : The above Results were Read Back by Vernon Swenson DO to Dr Jennifer MD, and understanding confirmed on 07/22/2021 22:55:31 (ET). Electronically Signed: Vernon Swenson DO at 23:04 EDT , Assessment & Plan Assessment/Plan (1) Acute hypokalemia: (2) Weakness: (3) Dehydration: PLAN: 1. Acute dehydration with weakness and hypokalemia ? We will continue with IV fluids ? Replace potassium and check magnesium and phosphorus levels ? Continue with peritoneal dialysis and consult nephrology for assistance she has not been making any urine but if she does can send for culture ? Blood cultures are pending 2. CAD/HTN/HLD/AICD placement ? Blood pressures currently stable with IV fluids, will hold Lasix ? We will hold her other blood pressure medication secondary to her hypotension if they do become elevated can restart in the morning after she has had more fluids ? Continue with Lipitor 3. DM2 ? Blood sugars are stable currently, continue with long-acting insulin and sliding scale insulin ? Hold her oral medications ? Accu-Cheks AC at bedtime ? We will make adjustments as necessary 4. Hypothyroidism ?stable ?continue Synthroid 5. GERD ? Stable ? Continue with PPI DVT: Heparin Charges/Coding Visit Charges Inpatient E&M: 46375 Init Hosp L2
[2021-07-23] VITALS (11 sets, daily range): BP systolic 92–123; BP diastolic 36–84; PULSE 64–89; RESP 18–20; TEMP 36.1–36.6; O2SAT 91–98; BMI 34.6
[2021-07-23 00:51] LABS: Lactic Acid 1.4 mmol/L (0.4-1.9)
[2021-07-23 00:55] LABS: Magnesium 1.2 mg/dL (1.6-2.6)
[2021-07-23 01:02] LABS: Phosphorus 3.7 mg/dL (2.5-4.9)
[2021-07-23 01:25] LABS: Troponin-I HS 160 pg/mL (3.0-54.0)
[2021-07-23] MEDS: Potassium Chloride 10mEq/100mL 10 MEQ/100 ML IV.SOLN. 100 MEQ IV BOLUS (01:44)
[2021-07-23] MEDS: 0.9% Normal Saline 1,000 ML 100 ML IV ×2 (02:22→02:44)
[2021-07-23] MEDS: Magnesium Sulfate 4gm/100mL 4 GM/100 ML IV.SOLN. IV (02:22)
[2021-07-23] MEDS: CLARIFY ORDER 1 EACH NOTE (03:38)
[2021-07-23 05:14] LABS: Absolute Lymphocyte Count 2.48 X10^3/uL (0.83-4.51); Absolute Neutrophil Count 8.2 X10^3/uL (2.0-7.7); Basophil# 0.04 X10^3/uL; Basophil% 0.3 % (0-1); Eosinophil# 0.08 X10^3/uL; Eosinophils% 0.7 % (0-5); Hematocrit 33.3 % (37-47); Hemoglobin 10.6 g/dL (12.0-15.0); Lymphocyte # 2.48 X10^3/ul (0.83-4.51); Lymphocyte % 21.3 % (19-41); Mean Corp Hgb Conc 31.8 g/dL (32-36); Mean Corpuscular Hgb 32.4 pg (27.0-32.0); Mean Corpuscular Volume 101.8 fL (81-99); Mean Platelet Vol. 9.7 fl (6.2-12.0); Monocyte# 0.73 X10^3/uL; Monocyte% 6.3 % (0-10); NRBC Flagged by Analyzer 0 % (0-5); Neutrophil # 8.22 X10^3/uL (2.7-7.7); Neutrophil % 70.8 % (47-70); Platelet Count 259 K/mm3 (150-450); RBC Distribution Width CV 15.6 % (11.6-14.6); RBC Distribution Width SD 57.6 fl (35.1-43.9); Red Blood Count 3.27 M/mm3 (4.2-5.4); White Blood Count 11.6 K/mm3 (4.4-11.0)
[2021-07-23 05:48] LABS: Anion Gap 12 (5-15); BUN 30 mg/dL (7-18); BUN/Creat Ratio 4.8 RATIO (10-20); Calcium,Total 7.6 mg/dL (8.5-10.1); Chloride 104 mmol/L (98-107); Creatinine, Serum 6.24 mg/dL (0.55-1.02); EST Glomerular Filtration Rate 7 mL/min (>60); Est Glom Filt Rate - Afr Amer 8 mL/min (>60); Estimated Creatinine Clearance 5.52 ml/min; Glucose 110 mg/dL (74-106); Potassium 2.5 mmol/L (3.5-5.1); Sodium Level 138 mmol/L (136-145); Troponin-I HS 166 pg/mL (3.0-54.0)
--- NOTE | 2021-07-23 05:54 | NURSING ---
called lab and asked them to cancel the mag level that they are currently running because she is still getting IV mag. told lab to come back at 0700 to redraw.
[2021-07-23] MEDS: Levothyroxine 137 MCG Tablet PO (06:52)
[2021-07-23] MEDS: Potassium Chloride Oral Tablet 20 MEQ 60 MEQ PO (06:52)
[2021-07-23 07:06] LABS: Bedside Glucose 52 mg/dL (74-106)
[2021-07-23 08:14] LABS: Magnesium 2.7 mg/dL (1.6-2.6)
[2021-07-23 08:26] LABS: Bedside Glucose 114 mg/dL (74-106)
[2021-07-23] MEDS: Heparin Injection (Vial) 5,000 UNIT/ML VIAL 5000 UNIT SC ×2 (09:32→21:18)
[2021-07-23] MEDS: busPIRone 5 MG Tablet PO ×2 (09:32→21:17)
[2021-07-23] MEDS: Pantoprazole Sodium 40 MG Tablet PO (09:32)
[2021-07-23] MEDS: Montelukast 10 MG Tablet PO (09:32)
[2021-07-23] MEDS: Calcitriol 0.25 MCG Capsule PO (10:16)
--- NOTE | 2021-07-23 10:30 | CASEMGMT ---
RN ARELIS Face to Face with patient for initial transition planning/care coordination assessment. RN CM introduced self and role at [facility]. Patient lying in bed, alert and oriented. Patient willing to participate in assessment and is able to answer all questions appropriately. Care providers, pharmacy, and demographics verified. Patient wishes to discharge home with possible HHC if necessary. Patient states she has no further needs or concerns at this time. CM to follow for discharge planning needs that may arise. PCP: Shana Specialists: Yamile, metal bench patternmaker; Omar, polytechnic teacher Preferred Pharmacy: [facility] Insurance: [employer] Prescription Benefit: yes Living Will/HPOA: Patient was not sure LNOK: daughter, son Living Arrangements: Patient states she lives alone in a 3 story home with bed and bath on first floor. Patient states that her daughter, Lydia, lives next door and assists patient with all her ADLs. Transportation: daughter or DIL DME/HHC: Patient states she has shower chair, raised toilet, cane, grab bars, walker, wheelchair, and nebulizer at home. Patient receives peritoneal dialysis at home that daughter Lydia completes. Patient has previously been to [facility]. Patient has had HHC in the past but does not remember name of agency. Disposition Plan: Patient to discharge home with family support and follow up plans in place. Chery QUIROZ, RN, CM
[2021-07-23] MEDS: Insulin Glargine-YFGN 100 UNIT/ML Pen 8 UNIT SC ×2 (10:45→21:25)
[2021-07-23 10:50] LABS: Bedside Glucose 136 mg/dL (74-106)
--- NOTE | 2021-07-23 11:14 | PCM.CONS.R ---
Assessment & Plan Assessment/Plan (1) Acute hypokalemia: PLAN: Potassium was 3.4 on July 11. Came in with a potassium of 2.5. Apparently had poor appetite over the last 10 days. Potassium has been repleted. (2) Abdominal pain: PLAN: She had an episode of peritonitis last month. This was treated with intraperitoneal antibiotics. Fluid has been clear. Over the last few days, she has been spiking fevers. Chest x-ray is clear. CT abdomen looks benign. Discussed with staff. I will send off peritoneal fluid for cell count and culture today. If she has another episode of peritonitis, this would be an indication for PD catheter to be removed. As per her PD fluid has been clear. Discussed with hospitalist (3) ESRD on peritoneal dialysis: PLAN: Dialysis arranged for today. HPI Consult Data Date of Consult: 07/23/21 HPI Narrative HPI Narrative: Chalino WHELAN, is a 81 F who presents to the hospital with generalized weakness, fevers. Nephrology consulted for ESRD. History of ESRD, on peritoneal dialysis. Overall has not been doing great recently. Episode of peritonitis in May. Treated successfully. Apparently had poor appetite. Occasional abdominal pain. 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) Recurrent syncope (03/28/21) Stage 3 chronic kidney disease Stenosis of left carotid artery Torsades de pointes (03/28/21) Transient visual loss, right eye (11/2020) Type II diabetes mellitus Ventricular tachycardia Vitamin B 12 deficiency Home Medications amlodipine 10 mg tablet 10 mg PO DAILY 10/12/18 [History Last Taken Unknown] atorvastatin 80 mg tablet 80 mg PO QHS 10/12/18 [History Last Taken Unknown] omeprazole 40 mg capsule,delayed release 40 mg PO DAILY 10/12/18 [History Last Taken Unknown] albuterol sulfate 90 mcg/actuation aerosol inhaler 2 puff INHALATION Q4H PRN g 10/13/18 [History Last Taken Unknown] calcitriol 0.25 mcg capsule 0.25 mcg PO .COMPLEX cap 10/26/19 [History Last Taken Unknown] latanoprost 0.005 % eye drops 1 drp OPHTHALMIC BID ml 10/26/19 [History Last Taken Unknown] montelukast 10 mg tablet 10 mg PO DAILY 10/26/19 [History Last Taken Unknown] fluticasone propionate [Flovent HFA] 1 puff INHALATION BID 03/28/21 [History Last Taken Unknown] insulin glargine [Lantus Solostar U-100 Insulin] 8 unit SUBCUT BID 03/28/21 [History Last Taken Unknown] pioglitazone 15 mg PO DAILY 03/28/21 [History Last Taken Unknown] carvedilol 6.25 mg tablet 6.25 mg PO BID 04/13/21 [History Last Taken Unknown] diclofenac 1 % topical gel and kinesiology tape 1 ea TOPICAL DAILY PRN 04/13/21 [History Last Taken Unknown] lidocaine 4 % topical patch 1 patch TOPICAL DAILY PRN 04/13/21 [History Last Taken Unknown] losartan 50 mg tablet 50 mg PO DAILY 04/13/21 [History Last Taken Unknown] polyethylene glycol 3350 17 gram oral powder packet 17 g PO DAILY 04/13/21 [History Last Taken Unknown] sennosides 8.6 mg tablet 8.6 mg PO BID 04/13/21 [History Last Taken Unknown] tiotropium bromide 2.5 mcg/actuation mist for inhalation 2 puff INHALATION QAM 04/13/21 [History Last Taken Unknown] acetaminophen 325 mg tablet 650 mg PO Q4H PRN tab 05/10/21 [History Last Taken Unknown] bisacodyl 10 mg rectal suppository 10 mg OH DAILY PRN 05/10/21 [History Last Taken Unknown] buspirone 5 mg tablet 5 mg PO BID 05/10/21 [History Last Taken Unknown] cyanocobalamin (vitamin B-12) 2,500 mcg sublingual tablet 2,500 mcg SUBLINGUAL QWEEK tab 05/10/21 [History Last Taken Unknown] ergocalciferol (vitamin D2) 50,000 unit tablet 50,000 unit PO QWEEK tab 05/10/21 [History Last Taken Unknown] furosemide 80 mg tablet 80 mg PO QAM 05/10/21 [History Last Taken Unknown] gentamicin 0.1 % topical cream 1 applic TOPICAL DAILY g 05/10/21 [History Last Taken Unknown] insulin lispro 100 unit/mL subcutaneous pen 1 sliding scale dose SUBCUT USEASDIRECTD 05/10/21 [History Last Taken Unknown] ipratropium 0.5 mg-albuterol 3 mg (2.5 mg base)/3 mL nebulization soln 3 ml INHALATION Q6H PRN 05/10/21 [History Last Taken Unknown] levothyroxine 137 mcg tablet 137 mcg PO DAILY tab 05/10/21 [History Last Taken Unknown] magnesium hydroxide 400 mg/5 mL oral suspension 30 ml PO DAILY PRN ml 05/10/21 [History Last Taken Unknown] magnesium oxide 400 mg PO DAILY #30 tab 05/10/21 [Rx Last Taken Unknown] potassium chloride 20 mEq tablet,extended release 20 meq PO DAILY 05/10/21 [History Last Taken Unknown] Allergy/AdvReac Type Severity Reaction Status Date / Time metformin [From Glucophage] Allergy Severe renal Verified 07/22/21 18:39 failure adhesive Allergy Intermediate blisters Verified 07/22/21 18:39 oxycodone Allergy Intermediate hallucinati Verified 07/22/21 18:39 ons tramadol Allergy Intermediate Vomiting Verified 07/22/21 18:39 ERIC Inhibitors AdvReac Intermediate cough Verified 07/22/21 18:39 Family History Father Heart disease Hypertension Suicide Mother Hypertension CVA (cerebral vascular accident) COPD (chronic obstructive pulmonary disease) CAD (coronary artery disease) Surgical History History of bilateral knee replacement (1989) History of breast biopsy History of implantable cardiac defibrillator (ICD) (04/02/21) History of left heart catheterization (03/28/21) History of open reduction and internal fixation (ORIF) procedure History of right cataract extraction (10/03/11) History of temporary cardiac pacemaker treatment (03/28/21) History of tonsillectomy Social History household members: none Smoking Status: Never smoker alcohol intake: never substance use type: does not use caffeine: Yes Type: coffee Number of servings: 2 ROS ROS Narrative Negative except above Physical Exam Narrative Alert awake oriented x 3 no obvious distress no pallor no icterus no JVD s1s2 no murmurs lungs clear abdomen soft no organomegaly no edema no cyanosis Lab / Micro Data Result Diagrams: 07/23/21 04:17 07/23/21 04:17 Labs: Laboratory Results - last 24 hr 07/22/21 19:30: WBC 12.8 H, RBC 3.96 L, Hgb 13.2, Hct 39.3, MCV 99.2 H, MCH 33.3 H, MCHC 33.6, RDW Std Deviation 55.1 H, RDW Coeff of Alanna 15.1 H, Plt Count 287, MPV 9.7, Immature Gran % (Auto) 0.800, Neut % (Auto) 76.1 H, Lymph % (Auto) 16.1 L, Butts % (Auto) 6.0, Eos % (Auto) 0.7, Baso % (Auto) 0.3, Absolute Neuts (auto) 9.8 H, Absolute Lymphs (auto) 2.07, Nucleated RBC % 0 07/22/21 19:30: Sodium 135 L, Potassium 2.2 L*, Chloride 95 L, Carbon Dioxide 26.0, Anion Gap 14, BUN 30 H, Creatinine 6.77 H, Estim Creat Clear Calc 5.08, Est GFR (MDRD) Af Amer 8 L, Est GFR (MDRD) Non-Af 6 L, BUN/Creatinine Ratio 4.4 L, Glucose 170 H, Calcium 8.9, Total Bilirubin 0.30, AST 34, ALT 20, Alkaline Phosphatase 146 H, Troponin I High Sens 170 H*, Total Protein 6.4, Albumin 1.6 L, Globulin 4.8 H, Albumin/Globulin Ratio 0.3 L 07/22/21 19:30: Lactic Acid 2.7 H* 07/22/21 19:55: POC Glucose 151 H 07/22/21 21:00: Urine Color Courtney, Urine Clarity Clear, Urine pH 5.0, Ur Specific Debary 1.020, Urine Protein 100 H, Urine Glucose (UA) Normal, Urine Ketones 5 H, Urine Occult Blood 10 H, Urine Nitrite Negative, Urine Bilirubin 6 H, Urine Urobilinogen Normal, Ur Leukocyte Esterase 25 H, Urine RBC 0 SEEN, Urine WBC 0 SEEN, Ur Squamous Epith Cells 0 SEEN, Urine Bacteria 0 SEEN, Urine Mucus 0 SEEN 07/22/21 23:59: Lactic Acid 1.4 07/22/21 23:59: Magnesium 1.2 L 07/22/21 23:59: Phosphorus 3.7 07/23/21 01:00: Troponin I High Sens 160 H* 07/23/21 04:17: Troponin I High Sens 166 H* 07/23/21 04:17: WBC 11.6 H, RBC 3.27 L, Hgb 10.6 L, Hct 33.3 L, MCV 101.8 H, MCH 32.4 H, MCHC 31.8 L D, RDW Std Deviation 57.6 H, RDW Coeff of Alanna 15.6 H, Plt Count 259, MPV 9.7, Immature Gran % (Auto) 0.600, Neut % (Auto) 70.8 H, Lymph % (Auto) 21.3, Butts % (Auto) 6.3, Eos % (Auto) 0.7, Baso % (Auto) 0.3, Absolute Neuts (auto) 8.2 H, Absolute Lymphs (auto) 2.48, Nucleated RBC % 0 07/23/21 04:17: Sodium 138, Potassium 2.5 L*, Chloride 104, Carbon Dioxide 22.0, Anion Gap 12, BUN 30 H, Creatinine 6.24 H, Estim Creat Clear Calc 5.52, Est GFR (MDRD) Af Amer 8 L, Est GFR (MDRD) Non-Af 7 L, BUN/Creatinine Ratio 4.8 L, Glucose 110 H, Calcium 7.6 L 07/23/21 04:17: Magnesium Cancelled 07/23/21 06:54: POC Glucose 52 L 07/23/21 07:40: POC Glucose 114 H 07/23/21 07:58: Magnesium 2.7 H 07/23/21 10:43: POC Glucose 136 H Radiology Impression Chest X-Ray 07/22/21 19:01 IMPRESSION: 1. No radiographic evidence of acute cardiopulmonary disease. Electronically Signed: Vernon Swenson DO at 21:31 EDT , Abdomen/Pelvis CT 07/22/21 21:34 IMPRESSION: Small amount of free air in the upper abdomen suspected of the associated with peritoneal dialysis catheter. No other evidence of acute intra-abdominal pathology. Mildly increased density of the gallbladder may be associated with cholestasis. No stone, gallbladder wall thickening however evidence of acute gallbladder pathology. Consider correlation with ultrasound. 15 mm exophytic hypodensity inferior pole left kidney suggesting cyst however ultrasound or contrast-enhanced CT would be needed to confirm. Lower limit normal size kidneys with minimal cortical thinning may be indicative of chronic renal insufficiency. Correlate clinically. Dense atherosclerosis abdominal aorta and at the origin of the right, greater than left renal arteries and right common iliac artery may be associated with vascular stenosis. Evidence of prior umbilical hernia repair with mesh. Severe central spinal canal stenosis. Significant, diffuse sarcopenia. N.B. : The above Results were Read Back by Vernon Swenson DO to Dr Jennifer MD, and understanding confirmed on 07/22/2021 22:55:31 (ET). Electronically Signed: Vernon Swenson DO at 23:04 EDT , ADDENDUM: 07/22/21 2310
--- NOTE | 2021-07-23 11:31 | PCM.PN.HOSP ---
Subjective Subjective Follow-up on debility/electrolyte imbalances: Patient was seen and examined. No acute events overnight. She complains of still feeling weak. She had electrolyte imbalances that were replaced. Objective Data Objective Data Vital Signs: Vital Signs Temp Pulse Resp BP Pulse Ox 97.9 F 80 20 H 92/36 L 95 07/23/21 07:40 07/23/21 07:40 07/23/21 07:40 07/23/21 07:40 07/23/21 07:40 Oxygen Delivery Method Room Air Weight: 85.8 kg Body Mass Index (BMI) 34.6 Intake & Output: Intake and Output for Last 24 Hours 07/21/21 07/22/21 07/23/21 23:59 23:59 23:59 Intake Total 1191.67 / 1191.67 2121.67 / 2121.67 Balance 1191.67 / 1191.67 2121. / 2120. Lab / Micro Data Result Diagrams: 07/23/21 04:17 07/23/21 04:17 Labs: Laboratory Results - last 24 hr 07/22/21 19:30: WBC 12.8 H, RBC 3.96 L, Hgb 13.2, Hct 39.3, MCV 99.2 H, MCH 33.3 H, MCHC 33.6, RDW Std Deviation 55.1 H, RDW Coeff of Alanna 15.1 H, Plt Count 287, MPV 9.7, Immature Gran % (Auto) 0.800, Neut % (Auto) 76.1 H, Lymph % (Auto) 16.1 L, Pocahontas % (Auto) 6.0, Eos % (Auto) 0.7, Baso % (Auto) 0.3, Absolute Neuts (auto) 9.8 H, Absolute Lymphs (auto) 2.07, Nucleated RBC % 0 07/22/21 19:30: Sodium 135 L, Potassium 2.2 L*, Chloride 95 L, Carbon Dioxide 26.0, Anion Gap 14, BUN 30 H, Creatinine 6.77 H, Estim Creat Clear Calc 5.08, Est GFR (MDRD) Af Amer 8 L, Est GFR (MDRD) Non-Af 6 L, BUN/Creatinine Ratio 4.4 L, Glucose 170 H, Calcium 8.9, Total Bilirubin 0.30, AST 34, ALT 20, Alkaline Phosphatase 146 H, Troponin I High Sens 170 H*, Total Protein 6.4, Albumin 1.6 L, Globulin 4.8 H, Albumin/Globulin Ratio 0.3 L 07/22/21 19:30: Lactic Acid 2.7 H* 07/22/21 19:55: POC Glucose 151 H 07/22/21 21:00: Urine Color Courtney, Urine Clarity Clear, Urine pH 5.0, Ur Specific Huffman 1.020, Urine Protein 100 H, Urine Glucose (UA) Normal, Urine Ketones 5 H, Urine Occult Blood 10 H, Urine Nitrite Negative, Urine Bilirubin 6 H, Urine Urobilinogen Normal, Ur Leukocyte Esterase 25 H, Urine RBC 0 SEEN, Urine WBC 0 SEEN, Ur Squamous Epith Cells 0 SEEN, Urine Bacteria 0 SEEN, Urine Mucus 0 SEEN 07/22/21 23:59: Lactic Acid 1.4 07/22/21 23:59: Magnesium 1.2 L 07/22/21 23:59: Phosphorus 3.7 07/23/21 01:00: Troponin I High Sens 160 H* 07/23/21 04:17: Troponin I High Sens 166 H* 07/23/21 04:17: WBC 11.6 H, RBC 3.27 L, Hgb 10.6 L, Hct 33.3 L, MCV 101.8 H, MCH 32.4 H, MCHC 31.8 L D, RDW Std Deviation 57.6 H, RDW Coeff of Alanna 15.6 H, Plt Count 259, MPV 9.7, Immature Gran % (Auto) 0.600, Neut % (Auto) 70.8 H, Lymph % (Auto) 21.3, Pocahontas % (Auto) 6.3, Eos % (Auto) 0.7, Baso % (Auto) 0.3, Absolute Neuts (auto) 8.2 H, Absolute Lymphs (auto) 2.48, Nucleated RBC % 0 07/23/21 04:17: Sodium 138, Potassium 2.5 L*, Chloride 104, Carbon Dioxide 22.0, Anion Gap 12, BUN 30 H, Creatinine 6.24 H, Estim Creat Clear Calc 5.52, Est GFR (MDRD) Af Amer 8 L, Est GFR (MDRD) Non-Af 7 L, BUN/Creatinine Ratio 4.8 L, Glucose 110 H, Calcium 7.6 L 07/23/21 04:17: Magnesium Cancelled 07/23/21 06:54: POC Glucose 52 L 07/23/21 07:40: POC Glucose 114 H 07/23/21 07:58: Magnesium 2.7 H 07/23/21 10:43: POC Glucose 136 H Radiography Diagnostic Testing: Radiology Impression Chest X-Ray 07/22/21 19:01 IMPRESSION: 1. No radiographic evidence of acute cardiopulmonary disease. Electronically Signed: Vernon Swenson DO at 21:31 EDT , Abdomen/Pelvis CT 07/22/21 21:34 IMPRESSION: Small amount of free air in the upper abdomen suspected of the associated with peritoneal dialysis catheter. No other evidence of acute intra-abdominal pathology. Mildly increased density of the gallbladder may be associated with cholestasis. No stone, gallbladder wall thickening however evidence of acute gallbladder pathology. Consider correlation with ultrasound. 15 mm exophytic hypodensity inferior pole left kidney suggesting cyst however ultrasound or contrast-enhanced CT would be needed to confirm. Lower limit normal size kidneys with minimal cortical thinning may be indicative of chronic renal insufficiency. Correlate clinically. Dense atherosclerosis abdominal aorta and at the origin of the right, greater than left renal arteries and right common iliac artery may be associated with vascular stenosis. Evidence of prior umbilical hernia repair with mesh. Severe central spinal canal stenosis. Significant, diffuse sarcopenia. N.B. : The above Results were Read Back by Vernon Swenson DO to Dr Jennifer MD, and understanding confirmed on 07/22/2021 22:55:31 (ET). Electronically Signed: Vernon Swenson DO at 23:04 EDT , ADDENDUM: 07/22/21 2310 IMPRESSION: Small amount of free air in the upper abdomen suspected of the associated with peritoneal dialysis catheter. No other evidence of acute intra-abdominal pathology. Mildly increased density of the gallbladder may be associated with cholestasis. No stone, gallbladder wall thickening however evidence of acute gallbladder pathology. Consider correlation with ultrasound. 15 mm exophytic hypodensity inferior pole left kidney suggesting cyst however ultrasound or contrast-enhanced CT would be needed to confirm. Lower limit normal size kidneys with minimal cortical thinning may be indicative of chronic renal insufficiency. Correlate clinically. Dense atherosclerosis abdominal aorta and at the origin of the right, greater than left renal arteries and right common iliac artery may be associated with vascular stenosis. Evidence of prior umbilical hernia repair with mesh. Severe central spinal canal stenosis. Significant, diffuse sarcopenia. N.B. : The above Results were Read Back by Vernon Swenson DO to Dr Jennifer MD, and understanding confirmed on 07/22/2021 22:55:31 (ET). Electronically Signed: Vernon Swenson DO at 23:04 EDT , Physical Exam Narrative Physical exam: General: Alert, Oriented x3, Cooperative, No apparent distress HEENT: Atraumatic Oral: Moist Mucosa Neck: Supple Lungs: Diminished to auscultation Cardiovascular: HS I+II, regular, no murmurs Abdomen: Bowel Sounds Present, Soft, Non Tender Extremities: No edema Skin: No rashes, No breakdown Neurological: Grossly intact Psych/Mental Status: Appropriate Assessment & Plan Assessment/Plan (1) Acute hypokalemia: (2) Weakness: (3) Dehydration: PLAN: 1. Acute severe hypokalemia and , replace, recheck in a.m. hypomagnesemia 2. Type II DM, blood sugars are fairly controlled, Continue on Lantus 8 units twice daily Continue blood glucose checks with insulin sliding scale 3. CAD/hypertension/high pain lipidemia/status post AICD placement Patient now with relative hypotension Will resume meds 4. Hypothyroidism, continue on Synthroid 5. GERD, continue with PPI 6. DVT PPx - Heparin SC Charges/Coding Visit Charges Inpatient E&M: 19341 Subs Hosp L2
--- NOTE | 2021-07-23 12:30 | CASEMGMT ---
BRENDA INFANTE updated by therapy that patient may benefit from SNF for additional therapy at discharge. Daughter Lydia and DIL at bedside. BRENDA INFANTE updated family regarding progress with therapy and recommendation of SNF at discharge. Family prefers to take patient home with HHC or outpatient therapy. Daughter Lydia states that they are not opposed to patient going to SNF but do not want patient to go to SNF. CM to provide family with HHC list and SNF agencies in-network with insurance and able to provide peritoneal dialysis. SW updated. CM will continue to follow this patient and plan for a safe discharge.
--- NOTE | 2021-07-23 13:09 | CASEMGMT ---
Per RN CM family is considering SNF placement. Patient is on peritoneal dialysis (PD). Patient has been to [facility] in the past, but they do not want her to go back there. Family mentioned [facility]. SW called [facility] and spoke with Christine. They have taken patient's on PD in the past, but right now due to their staffing they would not be able to accept someone on PD. SW met with patient's daughter and patient. Introduced self and role at [facility]. SW provided a list of SNF providers including quality and resource use data and consistent with the patient?s preferred geographic region, medical needs, and insurance network. SW explained facilities highlighted in pink are the ones that take patient's insurance. SW told them [facility] is not able to do PD right now. Patient's daughter kept looking at patient. She explained they have not talked with her about this yet. SW apologized and they said it was fine. SW offered to call any facility they would like to check to see if the facility would do PD. They thanked VITALY for the information. Carmen Farias MANAGER [employer]
--- NOTE | 2021-07-23 15:01 | CASEMGMT ---
Patient has a Healthcare Power of Sas Architect and a Healthcare Living Will. Documents are not on file at [facility]. Patient and her daughter are aware documents are not on file at [facility]. Patient's daughter Yolanda is her Healthcare Power of Sas Architect. Carmen Farias STUMP SH[employer]OTER [employer]
--- NOTE | 2021-07-23 15:23 | DIALYSIS ---
Addendum entered by Rhonda Sample 07/23/21 15:27: Culture and cell count drawn at 1522 Original Note: [facility] tx was started at 1250 using 2 bags of delflex 1.5% solution. Dressing was changed. No problems noted. Culture/cell count drawn at 1722 after the first drain cycle had completed. Effluent drainage is light yellow and clear. No fibrin noted. Report was given to BRENDA Osullivan.
[2021-07-23] MEDS: Nepro with Carbsteady 237 ML Liquid 120 ML PO (16:08)
[2021-07-23] MEDS: Insulin Lispro 100 UNIT/ML INSULN.PEN SC ×2 (16:11→21:25)
[2021-07-23 16:21] LABS: Bedside Glucose 209 mg/dL (74-106)
[2021-07-23 18:25] LABS: Body Fluid Mononuclear WBC % 90.9 %; Body Fluid Polynuclear WBC # 0.001 10^3/uL; Body Fluid Polynuclear WBC % 9.1 %; Body Fluid Total Cells Counted 0.012 10^3/ul; White Blood Count/Body Fluid 0.011 10^3/uL
[2021-07-23 21:07] LABS: Appearance/Body Fluid CLEAR; Auto B Fluid Analyzer BKGD Ct COUNTS W/IN LIMITS (W/IN LIMITS); Color/Body Fluid COLORLESS; Red Cell Count/Body Fluid 117 /mm3
[2021-07-23 21:09] LABS: Body Fluid QC Type(s) BF2Q
[2021-07-23 21:10] LABS: Source- Body Fluid OTHER
[2021-07-23] MEDS: 0.9% Saline Lock 10 ML Syringe IV (21:17)
[2021-07-23] MEDS: Atorvastatin Calcium 80 MG Tablet PO (21:18)
[2021-07-23] MEDS: MELATONIN 3 MG TABLET PO (21:37)
[2021-07-23 21:46] LABS: Bedside Glucose 224 mg/dL (74-106)
[2021-07-24] VITALS (10 sets, daily range): BP systolic 88–139; BP diastolic 35–103; PULSE 70–80; RESP 14–18; TEMP 35.7–36.6; O2SAT 96–99
[2021-07-24] MEDS: Levothyroxine 137 MCG Tablet PO (05:34)
[2021-07-24 05:53] LABS: Absolute Lymphocyte Count 3.07 X10^3/uL (0.83-4.51); Absolute Neutrophil Count 4.5 X10^3/uL (2.0-7.7); Basophil# 0.05 X10^3/uL; Basophil% 0.6 % (0-1); Eosinophil# 0.22 X10^3/uL; Eosinophils% 2.5 % (0-5); Hematocrit 30.5 % (37-47); Hemoglobin 9.8 g/dL (12.0-15.0); Lymphocyte # 3.07 X10^3/ul (0.83-4.51); Lymphocyte % 35.3 % (19-41); Mean Corp Hgb Conc 32.1 g/dL (32-36); Mean Corpuscular Volume 102.7 fL (81-99); Mean Platelet Vol. 9.4 fl (6.2-12.0); Monocyte# 0.76 X10^3/uL; Monocyte% 8.7 % (0-10); NRBC Flagged by Analyzer 0 % (0-5); Neutrophil # 4.52 X10^3/uL (2.7-7.7); Platelet Count 232 K/mm3 (150-450); RBC Distribution Width CV 15.8 % (11.6-14.6); RBC Distribution Width SD 59.3 fl (35.1-43.9); Red Blood Count 2.97 M/mm3 (4.2-5.4); White Blood Count 8.7 K/mm3 (4.4-11.0)
[2021-07-24 06:42] LABS: ALB/GLOB Ratio 0.3 RATIO (0.9-2.4); AST(SGOT) 26 U/L (15-37); Alanine Aminotransfer ALT/SGPT 16 U/L (13-56); Albumin, Serum 1.2 g/dL (3.2-5.0); Alkaline Phosphatase 108 U/L (45-117); Anion Gap 9 (5-15); BUN 29 mg/dL (7-18); BUN/Creat Ratio 4.9 RATIO (10-20); Calcium,Total 7.9 mg/dL (8.5-10.1); Chloride 104 mmol/L (98-107); Creatinine, Serum 5.93 mg/dL (0.55-1.02); EST Glomerular Filtration Rate 7 mL/min (>60); Est Glom Filt Rate - Afr Amer 9 mL/min (>60); Globulin 3.6 g/dL (2.2-4.2); Glucose 57 mg/dL (74-106); Phosphorus 3.1 mg/dL (2.5-4.9); Potassium 2.8 mmol/L (3.5-5.1); Protein, Total 4.8 g/dL (6.4-8.2); Sodium Level 136 mmol/L (136-145)
[2021-07-24 07:06] LABS: Bedside Glucose 55 mg/dL (74-106)
[2021-07-24 07:06] LABS: Bedside Glucose 57 mg/dL (74-106)
[2021-07-24 07:36] LABS: Bedside Glucose 100 mg/dL (74-106)
--- NOTE | 2021-07-24 07:52 | DIALYSIS ---
[facility] tx completed upon arrival to bedside this AM. Pt denies any complications overnight with PD tx. Pt tolerated tx well, fluid retained 11ml. slight amount of fibrin noted in effluent bags, will notify Dr. Ovalle. Effluent clear pale yellow. Catheter clamped, capped with stay-safe cap, and secured to patient's abdomen. Verbal report given to BRENDA Mac at bedside before departure.
[2021-07-24] MEDS: busPIRone 5 MG Tablet PO ×2 (08:38→21:36)
[2021-07-24] MEDS: Heparin Injection (Vial) 5,000 UNIT/ML VIAL 5000 UNIT SC ×2 (08:39→21:36)
[2021-07-24] MEDS: Pantoprazole Sodium 40 MG Tablet PO (08:39)
[2021-07-24] MEDS: Potassium Chloride Oral Tablet 20 MEQ 60 MEQ PO (08:43)
[2021-07-24] MEDS: Montelukast 10 MG Tablet PO (08:43)
--- NOTE | 2021-07-24 10:30 | CASEMGMT ---
RN CM in to discuss discharge planning with daughter Lydia and BARBRA. Family provided with list of C. Per Lydia, family is leaning towards patient going to outpatient therapy if able to ambulate. CM will continue to follow therapy notes and assists family with discharge planning.
[2021-07-24 11:20] LABS: Bedside Glucose 166 mg/dL (74-106)
--- NOTE | 2021-07-24 11:22 | PN.RENAL_ITS ---
Subjective Subjective no new complaints Objective Data Objective Data Vital Signs: Vital Signs Temp Pulse Resp BP Pulse Ox 97.2 F L 70 14 110/72 98 07/24/21 09:25 07/24/21 11:08 07/24/21 09:25 07/24/21 09:25 07/24/21 09:25 Oxygen Delivery Method Room Air Weight: 85.9 kg Body Mass Index (BMI) 34.6 Intake & Output: Intake and Output for Last 24 Hours 07/22/21 07/23/21 07/24/21 23:59 23:59 23:59 Intake Total 1191.67 / 1191.67 2961.67 / 3161.67 400 / 400 Output Total 0 / 0 Balance 1191.67 / 1191.67 2961.67 / 3161.67 400 / 400 Medical Nutrition Assessment Dietitian: Malnutrition Criteria Met Start: 07/23/21 14:26 Freq: Status: Active Protocol: Document 07/23/21 14:26 RMA (Rec: 07/23/21 14:26 RMA [id number]) Nutrition Malnutrition Evidence of Malnutrition Exists Yes Malnutrition (severe): Chronic Evidenced By Suboptimal Energy Intake ( Severe),Weight Loss (Severe) Clinical Problem Chronic Disease or Condition Related Malnutrition Etiology Severe protein-calorie malnutrition in the context of chronic disease related to inadequate oral intake Signs/Symptoms as evidenced by ~17% wt loss x past 4-5 months and PO meeting less than 50-75% estimated nutrition needs Status Active Problem Recommendation Dietitian Recommendations/Changes Will change diet to 1800 calorie/consistent carbohydrate; cardiac/sodium- restricted diet with 1750 ml FR per day. Will add 120 ml Nepro Carb Steady TID w/ medpass. Adjust ONS as needed once PO better established at meals. Lab / Micro Data Result Diagrams: 07/24/21 05:44 07/24/21 05:44 Labs: Laboratory Results - last 24 hr 07/23/21 15:22: Fluid Source OTHER, Fluid Color COLORLESS, Fluid Appearance CLEAR, Fluid WBC 0.011, Fluid RBC 117, Fluid Tot Cell Count 0.012 H, Fld Polynuclear WBCs # 0.001, Fld Polynuclear WBCs % 9.1, Fluid Mononuclear WBCs 0.010, Fld Mononuclear WBCs % 90.9, Fluid Neutrophils 79, Fluid Lymphocytes 10, Fluid Monocytes 8, Fluid Other Cells 3, Fl Pathologist Comment May follow, Fluid Comment 2 Not Reportable 07/23/21 16:10: POC Glucose 209 H 07/23/21 21:24: POC Glucose 224 H 07/24/21 05:44: WBC 8.7, RBC 2.97 L, Hgb 9.8 L, Hct 30.5 L, MCV 102.7 H, MCH 33.0 H, MCHC 32.1, RDW Std Deviation 59.3 H, RDW Coeff of Alanna 15.8 H, Plt Count 232, MPV 9.4, Immature Gran % (Auto) 0.900, Neut % (Auto) 52.0, Lymph % (Auto) 35.3, [place] % (Auto) 8.7, Eos % (Auto) 2.5, Baso % (Auto) 0.6, Absolute Neuts (auto) 4.5, Absolute Lymphs (auto) 3.07, Nucleated RBC % 0 07/24/21 05:44: Sodium 136, Potassium 2.8 L, Chloride 104, Carbon Dioxide 23.0, Anion Gap 9, BUN 29 H, Creatinine 5.93 H, Estim Creat Clear Calc 5.80, Est GFR (MDRD) Af Amer 9 L, Est GFR (MDRD) Non-Af 7 L, BUN/Creatinine Ratio 4.9 L, Glucose 57 L, Calcium 7.9 L, Phosphorus 3.1, Total Bilirubin 0.30, AST 26, ALT 16, Alkaline Phosphatase 108, Total Protein 4.8 L, Albumin 1.2 L, Globulin 3.6, Albumin/Globulin Ratio 0.3 L 07/24/21 06:39: POC Glucose 55 L 07/24/21 06:57: POC Glucose 57 L 07/24/21 07:31: POC Glucose 100 07/24/21 11:11: POC Glucose 166 H Micro: Microbiology 07/23/21 15:22 Fluid - Peritoneal Gram Stain - Final 07/23/21 15:22 Fluid - Peritoneal Body Fluid Culture - Preliminary No growth-Final to follow Physical Exam Narrative Alert awake oriented x 3 no obvious distress no pallor no icterus no JVD s1s2 no murmurs lungs clear abdomen soft no organomegaly no edema no cyanosis klein + Assessment & Plan Assessment/Plan (1) Acute hypokalemia: PLAN: Potassium was 3.4 on July 11. Came in with a potassium of 2.5. Apparently had poor appetite over the last 10 days. Potassium has been repleted today as well (2) Abdominal pain: PLAN: She had an episode of peritonitis last month. This was treated with intraperitoneal antibiotics. Fluid has been clear. Over the last few days, she has been spiking fevers. Chest x-ray is clear. CT abdomen looks benign. PD fluid cell count negative. no evidence of peritonitis. (3) ESRD on peritoneal dialysis: PLAN: Dialysis arranged for today add heparin to dialysis fluid.
--- NOTE | 2021-07-24 11:56 | CASEMGMT ---
Per therapy patient's family was asking about patient going to TCU. SW spoke with [facility] and they do not take patients on Peritoneal Dialysis PD). SW met with patient and her family. SW let them know this information. They were not sure what they are going to do. SW told them to let SW know if they would like SW to call facilities to see if they take PD patients. Carmen Farias ROUTER OPERATOR PIN STEPHANE
[2021-07-24] MEDS: Potassium Chloride Oral Soln 20 MEQ/15 ML UDC 40 MEQ PO (12:28)
--- NOTE | 2021-07-24 12:33 | PCM.PN.HOSP ---
Subjective Subjective Follow-up on debility/electrolyte imbalances: Patient was seen and examined. No acute events overnight. She complains of still feeling weak. Denies dizziness, palpitations. Objective Data Objective Data Vital Signs: Vital Signs Temp Pulse Resp BP Pulse Ox 97.2 F L 70 14 110/72 98 07/24/21 09:25 07/24/21 11:08 07/24/21 09:25 07/24/21 09:25 07/24/21 09:25 Oxygen Delivery Method Room Air Weight: 85.9 kg Body Mass Index (BMI) 34.6 Intake & Output: Intake and Output for Last 24 Hours 07/22/21 07/23/21 07/24/21 23:59 23:59 23:59 Intake Total 1191.67 / 1191.67 2961.67 / 3161.67 875 / 875 Output Total 0 / 0 Balance 1191.67 / 1191.67 2961.67 / 3161.67 875 / 875 Medical Nutrition Assessment Dietitian: Malnutrition Criteria Met Start: 07/23/21 14:26 Freq: Status: Active Protocol: Document 07/23/21 14:26 RMA (Rec: 07/23/21 14:26 RMA [id number]) Nutrition Malnutrition Evidence of Malnutrition Exists Yes Malnutrition (severe): Chronic Evidenced By Suboptimal Energy Intake ( Severe),Weight Loss (Severe) Clinical Problem Chronic Disease or Condition Related Malnutrition Etiology Severe protein-calorie malnutrition in the context of chronic disease related to inadequate oral intake Signs/Symptoms as evidenced by ~17% wt loss x past 4-5 months and PO meeting less than 50-75% estimated nutrition needs Status Active Problem Recommendation Dietitian Recommendations/Changes Will change diet to 1800 calorie/consistent carbohydrate; cardiac/sodium- restricted diet with 1750 ml FR per day. Will add 120 ml Nepro Carb Steady TID w/ medpass. Adjust ONS as needed once PO better established at meals. Lab / Micro Data Result Diagrams: 07/24/21 05:44 07/24/21 05:44 Labs: Laboratory Results - last 24 hr 07/23/21 15:22: Fluid Source OTHER, Fluid Color COLORLESS, Fluid Appearance CLEAR, Fluid WBC 0.011, Fluid RBC 117, Fluid Tot Cell Count 0.012 H, Fld Polynuclear WBCs # 0.001, Fld Polynuclear WBCs % 9.1, Fluid Mononuclear WBCs 0.010, Fld Mononuclear WBCs % 90.9, Fluid Neutrophils 79, Fluid Lymphocytes 10, Fluid Monocytes 8, Fluid Other Cells 3, Fl Pathologist Comment May follow, Fluid Comment 2 Not Reportable 07/23/21 16:10: POC Glucose 209 H 07/23/21 21:24: POC Glucose 224 H 07/24/21 05:44: WBC 8.7, RBC 2.97 L, Hgb 9.8 L, Hct 30.5 L, MCV 102.7 H, MCH 33.0 H, MCHC 32.1, RDW Std Deviation 59.3 H, RDW Coeff of Alanna 15.8 H, Plt Count 232, MPV 9.4, Immature Gran % (Auto) 0.900, Neut % (Auto) 52.0, Lymph % (Auto) 35.3, [place] % (Auto) 8.7, Eos % (Auto) 2.5, Baso % (Auto) 0.6, Absolute Neuts (auto) 4.5, Absolute Lymphs (auto) 3.07, Nucleated RBC % 0 07/24/21 05:44: Sodium 136, Potassium 2.8 L, Chloride 104, Carbon Dioxide 23.0, Anion Gap 9, BUN 29 H, Creatinine 5.93 H, Estim Creat Clear Calc 5.80, Est GFR (MDRD) Af Amer 9 L, Est GFR (MDRD) Non-Af 7 L, BUN/Creatinine Ratio 4.9 L, Glucose 57 L, Calcium 7.9 L, Phosphorus 3.1, Total Bilirubin 0.30, AST 26, ALT 16, Alkaline Phosphatase 108, Total Protein 4.8 L, Albumin 1.2 L, Globulin 3.6, Albumin/Globulin Ratio 0.3 L 07/24/21 06:39: POC Glucose 55 L 07/24/21 06:57: POC Glucose 57 L 07/24/21 07:31: POC Glucose 100 07/24/21 11:11: POC Glucose 166 H Micro: Microbiology 07/23/21 15:22 Fluid - Peritoneal Gram Stain - Final 07/23/21 15:22 Fluid - Peritoneal Body Fluid Culture - Preliminary No growth-Final to follow Physical Exam Narrative Physical exam: General: Alert, Oriented x3, Cooperative, No apparent distress HEENT: Atraumatic Oral: Moist Mucosa Neck: Supple Lungs: Diminished to auscultation Cardiovascular: HS I+II, regular, no murmurs Abdomen: Bowel Sounds Present, Soft, Non Tender Extremities: No edema Skin: No rashes, No breakdown Neurological: Grossly intact Psych/Mental Status: Appropriate Assessment & Plan Assessment/Plan (1) Acute hypokalemia: (2) Weakness: (3) Dehydration: PLAN: 1. Acute severe hypokalemia, replaced, Recheck in the afternoon and in am 2. Type II DM, blood sugars are fairly controlled, Continue on Lantus 8 units twice daily Continue blood glucose checks with insulin sliding scale 3. CAD/hypertension/high pain lipidemia/status post AICD placement Patient now with relative hypotension Will continue to hold meds 4. Hypothyroidism, continue on Synthroid 5. GERD, continue with PPI 6. DVT PPx - Heparin SC Charges/Coding Visit Charges Inpatient E&M: 05103 Subs Hosp L2
[2021-07-24 14:56] LABS: Lymphocytes 67 %; Monocytes 21 %; Neutrophil (Segs) 11 %
[2021-07-24 14:57] LABS: Other Cell Type/BF 1 %
[2021-07-24 16:40] LABS: Bedside Glucose 172 mg/dL (74-106)
--- NOTE | 2021-07-24 16:44 | DIALYSIS ---
CCPD tx initiated without complications using aseptic technique. Pre-drain bypassed after 10 minutes and 20ml drain. First fill completed without complications. Not enough effluent volume to assess at current. Vitals stable at start of tx. Verbal report to RN Estefania prior to departure for the night.
[2021-07-24] MEDS: Atorvastatin Calcium 80 MG Tablet PO (21:36)
[2021-07-24] MEDS: Insulin Lispro 100 UNIT/ML INSULN.PEN SC (21:37)
[2021-07-24] MEDS: Insulin Glargine-YFGN 100 UNIT/ML Pen 8 UNIT SC (21:38)
[2021-07-24 22:30] LABS: Bedside Glucose 302 mg/dL (74-106)
[2021-07-25] VITALS (8 sets, daily range): BP systolic 100–131; BP diastolic 38–57; PULSE 76–83; RESP 18–20; TEMP 36.1–36.9; O2SAT 97–100
[2021-07-25 06:03] LABS: Absolute Lymphocyte Count 2.95 X10^3/uL (0.83-4.51); Absolute Neutrophil Count 4.1 X10^3/uL (2.0-7.7); Basophil# 0.06 X10^3/uL; Basophil% 0.7 % (0-1); Eosinophil# 0.27 X10^3/uL; Eosinophils% 3.3 % (0-5); Hematocrit 31.5 % (37-47); Lymphocyte # 2.95 X10^3/ul (0.83-4.51); Lymphocyte % 35.9 % (19-41); Mean Corp Hgb Conc 31.7 g/dL (32-36); Mean Corpuscular Hgb 32.5 pg (27.0-32.0); Mean Corpuscular Volume 102.3 fL (81-99); Mean Platelet Vol. 9.4 fl (6.2-12.0); Monocyte# 0.77 X10^3/uL; Monocyte% 9.4 % (0-10); NRBC Flagged by Analyzer 0 % (0-5); Neutrophil # 4.07 X10^3/uL (2.7-7.7); Neutrophil % 49.5 % (47-70); Platelet Count 242 K/mm3 (150-450); RBC Distribution Width CV 15.9 % (11.6-14.6); RBC Distribution Width SD 59.2 fl (35.1-43.9); Red Blood Count 3.08 M/mm3 (4.2-5.4); White Blood Count 8.2 K/mm3 (4.4-11.0)
[2021-07-25] MEDS: Levothyroxine 137 MCG Tablet PO (06:37)
[2021-07-25 06:47] LABS: ALB/GLOB Ratio 0.4 RATIO (0.9-2.4); AST(SGOT) 25 U/L (15-37); Alanine Aminotransfer ALT/SGPT 19 U/L (13-56); Albumin, Serum 1.3 g/dL (3.2-5.0); Alkaline Phosphatase 107 U/L (45-117); Anion Gap 7 (5-15); BUN 30 mg/dL (7-18); BUN/Creat Ratio 5.2 RATIO (10-20); Calcium,Total 7.7 mg/dL (8.5-10.1); Chloride 104 mmol/L (98-107); Creatinine, Serum 5.81 mg/dL (0.55-1.02); EST Glomerular Filtration Rate 8 mL/min (>60); Est Glom Filt Rate - Afr Amer 9 mL/min (>60); Estimated Creatinine Clearance 5.92 ml/min; Globulin 3.7 g/dL (2.2-4.2); Glucose 74 mg/dL (74-106); Phosphorus 2.2 mg/dL (2.5-4.9); Potassium 4.2 mmol/L (3.5-5.1); Sodium Level 135 mmol/L (136-145)
[2021-07-25 06:55] LABS: Bedside Glucose 85 mg/dL (74-106)
--- NOTE | 2021-07-25 08:05 | DIALYSIS ---
CCPD completed. Pt stable without complaints. UF41mL removed. Pt disconnected aseptically. Effluent clear pale yellow no fibrin noted. Dressing dry and intact with no drainage. Report to BRENDA Salvador. Pt tolerated tx
[2021-07-25] MEDS: Nepro with Carbsteady 237 ML Liquid 120 ML PO (08:43)
[2021-07-25 09:08] LABS: Pathologist Comment/Body Fluid Reviewed
[2021-07-25] MEDS: Montelukast 10 MG Tablet PO (10:22)
[2021-07-25] MEDS: Heparin Injection (Vial) 5,000 UNIT/ML VIAL 5000 UNIT SC ×2 (10:22→21:27)
[2021-07-25] MEDS: Pantoprazole Sodium 40 MG Tablet PO (10:22)
[2021-07-25] MEDS: busPIRone 5 MG Tablet PO ×2 (10:22→21:27)
[2021-07-25] MEDS: Insulin Glargine-YFGN 100 UNIT/ML Pen 8 UNIT SC ×2 (12:08→21:29)
[2021-07-25] MEDS: Insulin Lispro 100 UNIT/ML INSULN.PEN SC ×3 (12:09→21:28)
--- NOTE | 2021-07-25 12:36 | CASEMGMT ---
SW met with patient. Introduced self and role at [facility]. SW asked patient if her daughter will be coming in and she said she should be here sometime. SW asked if they discussed a discharge plan with her and patient said she thinks they want to take her home. SW will check back. Carmen CALDERÓN
--- NOTE | 2021-07-25 13:16 | CASEMGMT ---
Patient's daughter and daughter in law arrived at [facility]. SW spoke with them and inquired if they have made a decision on a discharge plan. They have not. Patient said she doesn't want to have to keep coming back to the hospital. Patient became a little tearful. Patient explained she got home from her last hospitalization and did fine for a few days and then she ended up back in the hospital. Patient's family said they need to figure out how to keep her numbers up on her labs. They asked if a physician could talk with them. SW told them SW can send the physician a message. VITALY sent physician a message. Carmen Farias DIE POLISHER STEPHANE
--- NOTE | 2021-07-25 14:00 | PCM.PN.HOSP ---
Subjective Subjective Follow-up on debility/electrolyte imbalances: Patient was seen and examined. No acute events overnight. She is feeling improved. Denies dizziness, palpitations. Objective Data Objective Data Vital Signs: Vital Signs Temp Pulse Resp BP Pulse Ox 97.5 F L 82 18 122/43 H 100 07/25/21 08:50 07/25/21 08:50 07/25/21 08:50 07/25/21 08:50 07/25/21 08:50 Oxygen Delivery Method Room Air Weight: 88.8 kg Body Mass Index (BMI) 34.6 Intake & Output: Intake and Output for Last 24 Hours 07/23/21 07/24/21 07/25/21 23:59 23:59 23:59 Intake Total 2961.67 / 3161.67 875 / 1095 310 / 310 Output Total 0 / 0 Balance 2961.67 / 3161.67 875 / 1095 310 / 310 Medical Nutrition Assessment Dietitian: Malnutrition Criteria Met Start: 07/23/21 14:26 Freq: Status: Active Protocol: Document 07/25/21 12:41 RMA (Rec: 07/25/21 12:42 RMA [id number]) Nutrition Malnutrition Evidence of Malnutrition Exists Yes Malnutrition (severe): Chronic Evidenced By Suboptimal Energy Intake ( Severe),Weight Loss (Severe) Clinical Problem Chronic Disease or Condition Related Malnutrition Etiology Severe protein-calorie malnutrition in the context of chronic disease related to inadequate oral intake Signs/Symptoms as evidenced by ~17% wt loss x past 4-5 months and PO meeting less than 50-75% estimated nutrition needs Status Active Problem Recommendation Dietitian Recommendations/Changes Will continue 1800 calorie/ consistent carbohydrate; cardiac/sodium-restricted diet with 1750 ml FR per day. Will change 120 ml Nepro Carb Steady TID to with meals instead of with medpass. Adjust ONS as needed once PO better established at meals. Lab / Micro Data Result Diagrams: 07/25/21 05:57 07/25/21 05:57 Labs: Laboratory Results - last 24 hr 07/23/21 15:22: Fluid Neutrophils 11, Fluid Lymphocytes 67, Fluid Monocytes 21, Fluid Other Cells 1, Fl Pathologist Comment Reviewed 07/24/21 16:32: POC Glucose 172 H 07/24/21 21:25: POC Glucose 302 H 07/25/21 05:57: WBC 8.2, RBC 3.08 L, Hgb 10.0 L, Hct 31.5 L, MCV 102.3 H, MCH 32.5 H, MCHC 31.7 L, RDW Std Deviation 59.2 H, RDW Coeff of Alanna 15.9 H, Plt Count 242, MPV 9.4, Immature Gran % (Auto) 1.200 H, Neut % (Auto) 49.5, Lymph % (Auto) 35.9, [place] % (Auto) 9.4, Eos % (Auto) 3.3, Baso % (Auto) 0.7, Absolute Neuts (auto) 4.1, Absolute Lymphs (auto) 2.95, Nucleated RBC % 0 07/25/21 05:57: Sodium 135 L, Potassium 4.2, Chloride 104, Carbon Dioxide 24.0, Anion Gap 7, BUN 30 H, Creatinine 5.81 H, Estim Creat Clear Calc 5.92, Est GFR (MDRD) Af Amer 9 L, Est GFR (MDRD) Non-Af 8 L, BUN/Creatinine Ratio 5.2 L, Glucose 74, Calcium 7.7 L, Phosphorus 2.2 L, Total Bilirubin 0.40, AST 25, ALT 19, Alkaline Phosphatase 107, Total Protein 5.0 L, Albumin 1.3 L, Globulin 3.7, Albumin/Globulin Ratio 0.4 L 07/25/21 06:38: POC Glucose 85 Micro: Microbiology 07/22/21 19:50 Blood Culture (Wb) - Right Wrist Blood Culture - Preliminary No growth in 48 hours. 07/22/21 19:30 Blood Culture (Wb) - Anticubital Left Blood Culture - Preliminary No growth in 48 hours. 07/23/21 15:22 Fluid - Peritoneal Gram Stain - Final 07/23/21 15:22 Fluid - Peritoneal Body Fluid Culture - Preliminary No growth-Final to follow Physical Exam Narrative Physical exam: General: Alert, Oriented x3, Cooperative, No apparent distress HEENT: Atraumatic Oral: Moist Mucosa Neck: Supple Lungs: Diminished to auscultation Cardiovascular: HS I+II, regular, no murmurs Abdomen: Bowel Sounds Present, Soft, Non Tender Extremities: No edema Skin: No rashes, No breakdown Neurological: Grossly intact Psych/Mental Status: Appropriate Assessment & Plan Assessment/Plan (1) Acute hypokalemia: (2) Weakness: (3) Dehydration: PLAN: 1. Acute severe hypokalemia, resolved, recheck in am 2. Type II DM, blood sugars are fairly controlled, Continue on Lantus 8 units twice daily Continue blood glucose checks with insulin sliding scale 3. CAD/hypertension/high pain lipidemia/status post AICD placement Patient now with relative hypotension Will continue to hold meds 4. Hypothyroidism, continue on Synthroid 5. GERD, continue with PPI 6. DVT PPx - Heparin SC Charges/Coding Visit Charges Inpatient E&M: 47283 Subs Hosp L2
[2021-07-25 14:10] LABS: Bedside Glucose 171 mg/dL (74-106)
--- NOTE | 2021-07-25 14:41 | CASEMGMT ---
Patient's daughter in law asked SW to call the [facility] to see if they take Peritoneal Dialysis (PD). She also said SW can check with [facility]. SW checked with [facility], Agustin Sierra, Jose at [facility] and they do not take patients on PD. SW left a message with [facility]. [facility] Palacio said they do take [employer] and patients on PD. VITALY Curry was going to contact the [facility]. Per Antoinette Post [facility] does not take patients on PD. [facility] Marlene said it is a case by case basis. SW is waiting on [facility] to return call. VITALY spoke with patient's daughter in law and let her know [facility] is an option and [facility] may be as well. VITALY explained awaiting return call from [facility]. Carmen Farias BUSINESS PROPOSAL REP STEPHANE
[2021-07-25 16:26] LABS: Bedside Glucose 167 mg/dL (74-106)
--- NOTE | 2021-07-25 17:53 | DIALYSIS ---
CCPD initiated without complications. Dressing changed site benign. 2 bags 1.5% solution Fill volume 2500mL TV [id number] No final fill. pt stable and tolerating tx. Effluent pale yellow no fibrin noted. Initial drain completed. Initial fill in progress without complications. Report to BRENDA Salvador.
[2021-07-25] MEDS: Atorvastatin Calcium 80 MG Tablet PO (21:30)
--- NOTE | 2021-07-25 21:56 | PCM.PN.REN ---
Subjective Subjective no new complaints Objective Data Objective Data Vital Signs: Vital Signs Temp Pulse Resp BP Pulse Ox 98.4 F 80 18 131/48 H 98 07/25/21 21:19 07/25/21 21:19 07/25/21 21:19 07/25/21 21:19 07/25/21 21:19 Oxygen Delivery Method Room Air Weight: 88.8 kg Body Mass Index (BMI) 34.6 Intake & Output: Intake and Output for Last 24 Hours 07/23/21 07/24/21 07/25/21 23:59 23:59 23:59 Intake Total 2961.67 / 3161.67 875 / 1095 1110 / 1110 Output Total 0 / 0 Balance 2961.67 / 3161.67 875 / 1095 1110 / 1110 Medical Nutrition Assessment Dietitian: Malnutrition Criteria Met Start: 07/23/21 14:26 Freq: Status: Active Protocol: Document 07/25/21 12:41 RMA (Rec: 07/25/21 12:42 RMA [id number]) Nutrition Malnutrition Evidence of Malnutrition Exists Yes Malnutrition (severe): Chronic Evidenced By Suboptimal Energy Intake ( Severe),Weight Loss (Severe) Clinical Problem Chronic Disease or Condition Related Malnutrition Etiology Severe protein-calorie malnutrition in the context of chronic disease related to inadequate oral intake Signs/Symptoms as evidenced by ~17% wt loss x past 4-5 months and PO meeting less than 50-75% estimated nutrition needs Status Active Problem Recommendation Dietitian Recommendations/Changes Will continue 1800 calorie/ consistent carbohydrate; cardiac/sodium-restricted diet with 1750 ml FR per day. Will change 120 ml Nepro Carb Steady TID to with meals instead of with medpass. Adjust ONS as needed once PO better established at meals. Lab / Micro Data Result Diagrams: 07/25/21 05:57 07/25/21 05:57 Labs: Laboratory Results - last 24 hr 07/23/21 15:22: Fl Pathologist Comment Reviewed 07/24/21 21:25: POC Glucose 302 H 07/25/21 05:57: WBC 8.2, RBC 3.08 L, Hgb 10.0 L, Hct 31.5 L, MCV 102.3 H, MCH 32.5 H, MCHC 31.7 L, RDW Std Deviation 59.2 H, RDW Coeff of Alanna 15.9 H, Plt Count 242, MPV 9.4, Immature Gran % (Auto) 1.200 H, Neut % (Auto) 49.5, Lymph % (Auto) 35.9, [place] % (Auto) 9.4, Eos % (Auto) 3.3, Baso % (Auto) 0.7, Absolute Neuts (auto) 4.1, Absolute Lymphs (auto) 2.95, Nucleated RBC % 0 07/25/21 05:57: Sodium 135 L, Potassium 4.2, Chloride 104, Carbon Dioxide 24.0, Anion Gap 7, BUN 30 H, Creatinine 5.81 H, Estim Creat Clear Calc 5.92, Est GFR (MDRD) Af Amer 9 L, Est GFR (MDRD) Non-Af 8 L, BUN/Creatinine Ratio 5.2 L, Glucose 74, Calcium 7.7 L, Phosphorus 2.2 L, Total Bilirubin 0.40, AST 25, ALT 19, Alkaline Phosphatase 107, Total Protein 5.0 L, Albumin 1.3 L, Globulin 3.7, Albumin/Globulin Ratio 0.4 L 07/25/21 06:38: POC Glucose 85 07/25/21 12:07: POC Glucose 171 H 07/25/21 16:14: POC Glucose 167 H Micro: Microbiology 07/22/21 19:50 Blood Culture (Wb) - Right Wrist Blood Culture - Preliminary No growth in 48 hours. 07/22/21 19:30 Blood Culture (Wb) - Anticubital Left Blood Culture - Preliminary No growth in 48 hours. 07/23/21 15:22 Fluid - Peritoneal Gram Stain - Final 07/23/21 15:22 Fluid - Peritoneal Body Fluid Culture - Preliminary No growth-Final to follow Physical Exam Narrative Alert awake oriented x 3 no obvious distress no pallor no icterus no JVD s1s2 no murmurs lungs clear abdomen soft no organomegaly no edema Assessment & Plan Assessment/Plan (1) Acute hypokalemia: PLAN: Potassium was 3.4 on July 11. Came in with a potassium of 2.5. Apparently had poor appetite over the last 10 days. Potassium has been repleted (2) Abdominal pain: PLAN: She had an episode of peritonitis last month. This was treated with intraperitoneal antibiotics. Fluid has been clear. Over the last few days, she has been spiking fevers. Chest x-ray is clear. CT abdomen looks benign. PD fluid cell count negative. no evidence of peritonitis. (3) ESRD on peritoneal dialysis: PLAN: Dialysis arranged for today
[2021-07-25 23:46] LABS: Bedside Glucose 253 mg/dL (74-106)
[2021-07-26] VITALS (7 sets, daily range): BP systolic 109–148; BP diastolic 42–54; PULSE 75–87; RESP 16–18; TEMP 36.4–36.7; O2SAT 96–99
[2021-07-26 05:40] LABS: Absolute Lymphocyte Count 2.34 X10^3/uL (0.83-4.51); Absolute Neutrophil Count 3.4 X10^3/uL (2.0-7.7); Basophil# 0.04 X10^3/uL; Basophil% 0.6 % (0-1); Eosinophil# 0.27 X10^3/uL; Hematocrit 30.3 % (37-47); Hemoglobin 9.7 g/dL (12.0-15.0); Lymphocyte # 2.34 X10^3/ul (0.83-4.51); Lymphocyte % 34.5 % (19-41); Mean Corpuscular Hgb 33.1 pg (27.0-32.0); Mean Corpuscular Volume 103.4 fL (81-99); Mean Platelet Vol. 9.6 fl (6.2-12.0); Monocyte# 0.61 X10^3/uL; NRBC Flagged by Analyzer 0 % (0-5); Neutrophil # 3.42 X10^3/uL (2.7-7.7); Neutrophil % 50.3 % (47-70); Platelet Count 224 K/mm3 (150-450); RBC Distribution Width CV 15.8 % (11.6-14.6); RBC Distribution Width SD 60.1 fl (35.1-43.9); Red Blood Count 2.93 M/mm3 (4.2-5.4); White Blood Count 6.8 K/mm3 (4.4-11.0)
[2021-07-26 06:17] LABS: ALB/GLOB Ratio 0.4 RATIO (0.9-2.4); AST(SGOT) 21 U/L (15-37); Alanine Aminotransfer ALT/SGPT 18 U/L (13-56); Albumin, Serum 1.3 g/dL (3.2-5.0); Alkaline Phosphatase 101 U/L (45-117); Anion Gap 6 (5-15); BUN 33 mg/dL (7-18); BUN/Creat Ratio 5.8 RATIO (10-20); Chloride 101 mmol/L (98-107); Creatinine, Serum 5.73 mg/dL (0.55-1.02); EST Glomerular Filtration Rate 8 mL/min (>60); Est Glom Filt Rate - Afr Amer 9 mL/min (>60); Estimated Creatinine Clearance 6.01 ml/min; Globulin 3.6 g/dL (2.2-4.2); Glucose 164 mg/dL (74-106); Phosphorus 2.3 mg/dL (2.5-4.9); Potassium 4.3 mmol/L (3.5-5.1); Protein, Total 4.9 g/dL (6.4-8.2); Sodium Level 134 mmol/L (136-145)
[2021-07-26] MEDS: Insulin Lispro 100 UNIT/ML INSULN.PEN SC (06:26)
[2021-07-26] MEDS: Levothyroxine 137 MCG Tablet PO (06:27)
[2021-07-26 06:36] LABS: Bedside Glucose 159 mg/dL (74-106)
--- NOTE | 2021-07-26 08:02 | DIALYSIS ---
CCPD complete. Tolerated tx well. Net fluid positive 35ml. Stay safe cap placed. Effluent drainage is yellow and clear. Small amount of fibrin noted. Report given to BRENDA Wahl.
--- NOTE | 2021-07-26 09:24 | CASEMGMT ---
SW checked with [facility] and they do not take patient's on Peritoneal Dialysis (PD). SW spoke with patient's daughter in law. They have decided to take patient home as she does not want to go anywhere. SW let the daughter in law know that [facility] does not take patient's on PD. The only 2 options are [facility] in [place] and [facility] in [place]. Family would like to do outpatient therapy as they feel patient will do more. Physician and RN CM aware. Plan: home with outpatient therapy Carmen Farias HOMOGENIZER OPERATORSimón CALDERÓN
[2021-07-26] MEDS: Pantoprazole Sodium 40 MG Tablet PO (10:06)
[2021-07-26] MEDS: Insulin Glargine-YFGN 100 UNIT/ML Pen 8 UNIT SC (10:06)
[2021-07-26] MEDS: Montelukast 10 MG Tablet PO (10:06)
[2021-07-26] MEDS: Heparin Injection (Vial) 5,000 UNIT/ML VIAL 5000 UNIT SC (10:06)
[2021-07-26] MEDS: busPIRone 5 MG Tablet PO (10:06)
--- NOTE | 2021-07-26 10:53 | PCM.DC ---
Discharge Instructions Diet Discharge Diet: 2000 Calorie Control Diet and Renal Diet Activity Discharge Activity: Return to Normal Activity Follow Up Care Test Results: Test results from this visit will be discussed in further detail at your follow-up appointment, if applicable. Discharge Plan Admission Admit Date/Time: 07/22/21 23:35 Primary Reason for Your Visit: Debility Attending Provider: Estrella Smith Primary Care Provider: Satnam Saldana Consulting Providers: Elliott Ovalle Instructions Additional Instructions / Restrictions: Take note of changes to your medications. Some of your blood pressure medications were held in the hospital because of low blood pressure. You have been prescribed a low-dose Coreg at 3.125 mg twice a day. Continue to measure your blood pressure every day Your blood pressure medications were held during this hospital stay. Follow-up with nephrology within a week for repeat blood work Discharge Orders/Prescriptions Prescriptions: New carvedilol [Coreg] 3.125 mg tablet 3.125 mg PO BID 30 Days Qty: 60 RF: 0 Continued omeprazole 40 mg capsule,delayed release(DR/EC) 40 mg PO DAILY RF: 0 atorvastatin 80 mg tablet 80 mg PO QHS RF: 0 albuterol sulfate 90 mcg/actuation HFA aerosol inhaler 2 puff INHALATION Q4H PRN (Reason: shortness ) RF: 0 latanoprost 0.005 % drops 1 drp OPHTHALMIC BID RF: 0 cyanocobalamin (vitamin B-12) [Vitamin B-12] 2,500 mcg tablet, sublingual 2,500 mcg SUBLINGUAL QWEEK RF: 0 levothyroxine 137 mcg tablet 137 mcg PO DAILY RF: 0 calcitriol 0.25 mcg capsule 0.25 mcg PO .COMPLEX RF: 0 montelukast 10 mg tablet 10 mg PO DAILY RF: 0 diclofenac-kinesiology tape 1 % kit 1 ea topical DAILY PRNRF: 0 lidocaine 4 % adhesive patch,medicated 1 patch topical DAILY PRNRF: 0 polyethylene glycol 3350 17 gram powder in packet 17 g PO DAILY RF: 0 sennosides 8.6 mg tablet 8.6 mg PO BID RF: 0 Spiriva Respimat 2.5 mcg/actuation mist 2 puff inhalation QAM RF: 0 buspirone 5 mg tablet 5 mg PO BID RF: 0 ergocalciferol (vitamin D2) 50,000 unit tablet 50,000 unit PO QWEEK RF: 0 gentamicin 0.1 % cream 1 applic topical DAILY RF: 0 insulin lispro 100 unit/mL insulin pen 1 sliding scale dose subcut USEASDIRECTD RF: 0 potassium chloride 20 mEq tablet extended release 20 meq PO DAILY RF: 0 acetaminophen 325 mg tablet 650 mg PO Q4H PRNRF: 0 bisacodyl 10 mg suppository 10 mg IA DAILY PRNRF: 0 pioglitazone 15 mg Tablet 15 mg PO DAILY RF: 0 Flovent HFA 110 mcg/actuation HFA aerosol inhaler 1 puff INHALATION BID RF: 0 Lantus Solostar U-100 Insulin 100 unit/mL (3 mL) Insulin Pen 8 unit subcut BID RF: 0 ipratropium-albuterol 0.5 mg-3 mg(2.5 mg base)/3 mL solution for nebulization 3 ml INHALATION Q6H PRNRF: 0 Discontinued amlodipine 10 mg tablet 10 mg PO DAILY RF: 0 losartan 50 mg tablet 50 mg PO DAILY RF: 0 carvedilol 6.25 mg tablet 6.25 mg PO BID RF: 0 furosemide 80 mg tablet 80 mg PO QAM RF: 0 magnesium hydroxide [Milk of Magnesia] 400 mg/5 mL suspension 30 ml PO DAILY PRNRF: 0 magnesium oxide 400 mg magnesium tablet 400 mg PO DAILY Qty: 30 RF: 11 Referrals / Follow Up: Satnam Saldana MD [Primary Care Provider] - In 1 Week Elliott Ovalle MD [STAFF PHYSICIAN] - In 1 Week Disposition Disposition (needs filled in before D/C Order can be placed): Home, Self Care
--- NOTE | 2021-07-26 11:03 | DS.PCM_ITS ---
Providers Date of Admission: 07/22/21 Date of Discharge: 07/26/21 Primary Care Physician: Dr. Satnam Saldana MD Consultations 07/23/21 00:27 Consult: Nephrology Routine Consulting Provider: Elliott Ovalle Reason for Consult: peritoneal dialysis EMERGENT Consult: No MD Notified: Yes Date Notified: 07/23/21 Time Notified: 06:56 Method of Notification: Text Reason For Visit: weakness, dehydration, hypokalemia Diagnosis Discharge Diagnosis (1) Acute hypokalemia: Status: Resolved Code(s): E87.6 - Hypokalemia (2) Abdominal pain: Status: Resolved Code(s): R10.9 - Unspecified abdominal pain (3) ESRD on peritoneal dialysis: Status: Chronic Code(s): N18.6 - End stage renal disease; Z99.2 - Dependence on renal dialysis (4) Severe protein-calorie malnutrition: Status: Acute Code(s): E43 - Unspecified severe protein-calorie malnutrition Medications at Discharge Home Medications atorvastatin 80 mg tablet 80 mg PO QHS 10/12/18 omeprazole 40 mg capsule,delayed release 40 mg PO DAILY 10/12/18 albuterol sulfate 90 mcg/actuation aerosol inhaler 2 puff INHALATION Q4H PRN g 10/13/18 calcitriol 0.25 mcg capsule 0.25 mcg PO .COMPLEX cap 10/26/19 latanoprost 0.005 % eye drops 1 drp OPHTHALMIC BID ml 10/26/19 montelukast 10 mg tablet 10 mg PO DAILY 10/26/19 Flovent HFA 1 puff INHALATION BID 03/28/21 Lantus Solostar U-100 Insulin 8 unit SUBCUT BID 03/28/21 pioglitazone 15 mg PO DAILY 03/28/21 diclofenac 1 % topical gel and kinesiology tape 1 ea TOPICAL DAILY PRN 04/13/21 lidocaine 4 % topical patch 1 patch TOPICAL DAILY PRN 04/13/21 polyethylene glycol 3350 17 gram oral powder packet 17 g PO DAILY 04/13/21 sennosides 8.6 mg tablet 8.6 mg PO BID 04/13/21 tiotropium bromide 2.5 mcg/actuation mist for inhalation 2 puff INHALATION QAM 04/13/21 acetaminophen 325 mg tablet 650 mg PO Q4H PRN tab 05/10/21 bisacodyl 10 mg rectal suppository 10 mg OR DAILY PRN 05/10/21 buspirone 5 mg tablet 5 mg PO BID 05/10/21 cyanocobalamin (vitamin B-12) 2,500 mcg sublingual tablet 2,500 mcg SUBLINGUAL QWEEK tab 05/10/21 ergocalciferol (vitamin D2) 50,000 unit tablet 50,000 unit PO QWEEK tab 05/10/21 gentamicin 0.1 % topical cream 1 applic TOPICAL DAILY g 05/10/21 insulin lispro 100 unit/mL subcutaneous pen 1 sliding scale dose SUBCUT USEASDIRECTD 05/10/21 ipratropium 0.5 mg-albuterol 3 mg (2.5 mg base)/3 mL nebulization soln 3 ml INHALATION Q6H PRN 05/10/21 levothyroxine 137 mcg tablet 137 mcg PO DAILY tab 05/10/21 potassium chloride 20 mEq tablet,extended release 20 meq PO DAILY 05/10/21 carvedilol [Coreg] 3.125 mg PO BID 30 Days #60 tab 07/26/21 Hospital Course Operations None Procedures None Summary of Care Provided Minutes Spent on Discharge: 35 Hospital Course: 81 y/o female with multiple comorbidities, ESRD on peritoneal dialysis who comes in with generalized weakness and chills. This has been ongoing for a week and half. Patient recently had a concern about infection of her peritoneal dialysis catheter. That was treated with antibiotics. In the ED patient was found to have hypotension that improved with IV fluids and also severe hypokalemia. She also had hypomagnesemia that was replaced. Patient had daily peritoneal dialysis was in the hospital. Nephrology was [facility]. Peritoneal fluid aspirate was negative for infection. Patient was seen by PT and OT and skilled for discharge to halfway facility. She however insisted on going home. This was discussed further with family. Patient was discharged with an outpatient therapy prescription. She needs to repeat her blood work within 1 week. She will follow-up with nephrology also. Patient had evidence of severe protein calorie malnutrition, dietitian was recommended and she was managed on supplements. Physical Exam Narrative Physical exam: General: Alert, Oriented x3, Cooperative, No apparent distress HEENT: Atraumatic Oral: Moist Mucosa Neck: Supple Lungs: Diminished to auscultation Cardiovascular: HS I+II, regular, no murmurs Abdomen: Bowel Sounds Present, Soft, Non Tender Extremities: No edema Skin: No rashes, No breakdown Neurological: Grossly intact Psych/Mental Status: Appropriate Medical Records Data Medical Nutrition Assessment Dietitian: Malnutrition Criteria Met Start: 07/23/21 14:26 Freq: Status: Active Protocol: Document 07/25/21 12:41 RMA (Rec: 07/25/21 12:42 RMA [id number]) Nutrition Malnutrition Evidence of Malnutrition Exists Yes Malnutrition (severe): Chronic Evidenced By Suboptimal Energy Intake ( Severe),Weight Loss (Severe) Clinical Problem Chronic Disease or Condition Related Malnutrition Etiology Severe protein-calorie malnutrition in the context of chronic disease related to inadequate oral intake Signs/Symptoms as evidenced by ~17% wt loss x past 4-5 months and PO meeting less than 50-75% estimated nutrition needs Status Active Problem Recommendation Dietitian Recommendations/Changes Will continue 1800 calorie/ consistent carbohydrate; cardiac/sodium-restricted diet with 1750 ml FR per day. Will change 120 ml Nepro Carb Steady TID to with meals instead of with medpass. Adjust ONS as needed once PO better established at meals. Weight / BMI Weight Weight: 88.7 kg Body Mass Index (BMI) 34.6 ABG / Lab / Microbiology Data Result Diagrams: 07/26/21 05:16 07/26/21 05:16 Laboratory: Laboratory Results - last 24 hr 07/25/21 12:07: POC Glucose 171 H 07/25/21 16:14: POC Glucose 167 H 07/25/21 21:24: POC Glucose 253 H 07/26/21 05:16: WBC 6.8, RBC 2.93 L, Hgb 9.7 L, Hct 30.3 L, MCV 103.4 H, MCH 33.1 H, MCHC 32.0, RDW Std Deviation 60.1 H, RDW Coeff of Alanna 15.8 H, Plt Count 224, MPV 9.6, Immature Gran % (Auto) 1.600 H, Neut % (Auto) 50.3, Lymph % (Auto) 34.5, Pleasants % (Auto) 9.0, Eos % (Auto) 4.0, Baso % (Auto) 0.6, Absolute Neuts (auto) 3.4, Absolute Lymphs (auto) 2.34, Nucleated RBC % 0 07/26/21 05:16: Sodium 134 L, Potassium 4.3, Chloride 101, Carbon Dioxide 27.0, Anion Gap 6, BUN 33 H, Creatinine 5.73 H, Estim Creat Clear Calc 6.01, Est GFR (MDRD) Af Amer 9 L, Est GFR (MDRD) Non-Af 8 L, BUN/Creatinine Ratio 5.8 L, Glucose 164 H, Calcium 8.0 L, Phosphorus 2.3 L, Total Bilirubin 0.30, AST 21, ALT 18, Alkaline Phosphatase 101, Total Protein 4.9 L, Albumin 1.3 L, Globulin 3.6, Albumin/Globulin Ratio 0.4 L 07/26/21 06:24: POC Glucose 159 H Microbiology: Microbiology 07/22/21 19:50 Blood Culture (Wb) - Right Wrist Blood Culture - Preliminary No growth in 48 hours. 07/22/21 19:30 Blood Culture (Wb) - Anticubital Left Blood Culture - Prel iminary No growth in 48 hours. 07/23/21 15:22 Fluid - Peritoneal Gram Stain - Final 07/23/21 15:22 Fluid - Peritoneal Body Fluid Culture - Preliminary No growth-Final to follow D/C Instructions Discharge Diet: 2000 Calorie Control Diet and Renal Diet Meaningful Use Info Meaningful Use Diagnoses (Choose all that apply): None applicable Discharge Plan Admission Admit Date/Time: 07/22/21 23:35 Primary Reason for Your Visit: Debility Attending Provider: Estrella Smith Primary Care Provider: Satnam Saldana Consulting Providers: Elliott Ovalle Instructions Additional Instructions / Restrictions: Take note of changes to your medications. Some of your blood pressure medications were held in the hospital because of low blood pressure. You have been prescribed a low-dose Coreg at 3.125 mg twice a day. Continue to measure your blood pressure every day Your blood pressure medications were held during this hospital stay. Follow-up with nephrology within a week for repeat blood work Discharge Orders/Prescriptions Prescriptions: New carvedilol [Coreg] 3.125 mg tablet 3.125 mg PO BID 30 Days Qty: 60 RF: 0 Continued omeprazole 40 mg capsule,delayed release(DR/EC) 40 mg PO DAILY RF: 0 atorvastatin 80 mg tablet 80 mg PO QHS RF: 0 albuterol sulfate 90 mcg/actuation HFA aerosol inhaler 2 puff INHALATION Q4H PRN (Reason: shortness ) RF: 0 latanoprost 0.005 % drops 1 drp OPHTHALMIC BID RF: 0 cyanocobalamin (vitamin B-12) [Vitamin B-12] 2,500 mcg tablet, sublingual 2,500 mcg SUBLINGUAL QWEEK RF: 0 levothyroxine 137 mcg tablet 137 mcg PO DAILY RF: 0 calcitriol 0.25 mcg capsule 0.25 mcg PO .COMPLEX RF: 0 montelukast 10 mg tablet 10 mg PO DAILY RF: 0 diclofenac-kinesiology tape 1 % kit 1 ea topical DAILY PRNRF: 0 lidocaine 4 % adhesive patch,medicated 1 patch topical DAILY PRNRF: 0 polyethylene glycol 3350 17 gram powder in packet 17 g PO DAILY RF: 0 sennosides 8.6 mg tablet 8.6 mg PO BID RF: 0 Spiriva Respimat 2.5 mcg/actuation mist 2 puff inhalation QAM RF: 0 buspirone 5 mg tablet 5 mg PO BID RF: 0 ergocalciferol (vitamin D2) 50,000 unit tablet 50,000 unit PO QWEEK RF: 0 gentamicin 0.1 % cream 1 applic topical DAILY RF: 0 insulin lispro 100 unit/mL insulin pen 1 sliding scale dose subcut USEASDIRECTD RF: 0 potassium chloride 20 mEq tablet extended release 20 meq PO DAILY RF: 0 acetaminophen 325 mg tablet 650 mg PO Q4H PRNRF: 0 bisacodyl 10 mg suppository 10 mg OR DAILY PRNRF: 0 pioglitazone 15 mg Tablet 15 mg PO DAILY RF: 0 Flovent HFA 110 mcg/actuation HFA aerosol inhaler 1 puff INHALATION BID RF: 0 Lantus Solostar U-100 Insulin 100 unit/mL (3 mL) Insulin Pen 8 unit subcut BID RF: 0 ipratropium-albuterol 0.5 mg-3 mg(2.5 mg base)/3 mL solution for nebulization 3 ml INHALATION Q6H PRNRF: 0 Discontinued amlodipine 10 mg tablet 10 mg PO DAILY RF: 0 losartan 50 mg tablet 50 mg PO DAILY RF: 0 carvedilol 6.25 mg tablet 6.25 mg PO BID RF: 0 furosemide 80 mg tablet 80 mg PO QAM RF: 0 magnesium hydroxide [Milk of Magnesia] 400 mg/5 mL suspension 30 ml PO DAILY PRNRF: 0 magnesium oxide 400 mg magnesium tablet 400 mg PO DAILY Qty: 30 RF: 11 Referrals / Follow Up: Satnam Saldana MD [Primary Care Provider] - In 1 Week Elliott Ovalle MD [STAFF PHYSICIAN] - See Referral Note (Doctor will see her at Dialysis) Disposition Disposition (needs filled in before D/C Order can be placed): Home, Self Care Charges/Coding Visit Charges Inpatient E&M: 63649 Disch Hosp
--- NOTE | 2021-07-26 11:08 | CASEMGMT ---
Addendum entered by Chery Schuler 07/26/21 14:06: Signed OP therapy script obtained and to pt at this time. Pt states will likely go to [facility] for OP therapy but does not want this [facility] INFANTE to fax to [facility] at this time. Pt voices no further questions/concerns/needs with going home. Sharri GUTIERREZ CM Original Note: Per Liliane HAIDER, pt/family would like to go home with OP script for therapy. Awaiting physician to sign script then will be provided to pt/family for discharge. Pt already set up with PD at home and has family support. Sharri GUTIERREZ CM
[2021-07-26 11:11] LABS: Bedside Glucose 119 mg/dL (74-106)
--- NOTE | 2021-07-26 11:36 | PHA.DC.MR ---
Pharmacy Service has performed discharge medication reconciliation for this patient. The patient's discharge medication list was reviewed for discrepancies and discrepancies were resolved. Home Medications atorvastatin 80 mg tablet 80 mg PO QHS 10/12/18 omeprazole 40 mg capsule,delayed release 40 mg PO DAILY 10/12/18 albuterol sulfate 90 mcg/actuation aerosol inhaler 2 puff INHALATION Q4H PRN g 10/13/18 calcitriol 0.25 mcg capsule 0.25 mcg PO .COMPLEX cap 10/26/19 latanoprost 0.005 % eye drops 1 drp OPHTHALMIC BID ml 10/26/19 montelukast 10 mg tablet 10 mg PO DAILY 10/26/19 Flovent HFA 1 puff INHALATION BID 03/28/21 Lantus Solostar U-100 Insulin 8 unit SUBCUT BID 03/28/21 pioglitazone 15 mg PO DAILY 03/28/21 diclofenac 1 % topical gel and kinesiology tape 1 ea TOPICAL DAILY PRN 04/13/21 lidocaine 4 % topical patch 1 patch TOPICAL DAILY PRN 04/13/21 polyethylene glycol 3350 17 gram oral powder packet 17 g PO DAILY 04/13/21 sennosides 8.6 mg tablet 8.6 mg PO BID 04/13/21 tiotropium bromide 2.5 mcg/actuation mist for inhalation 2 puff INHALATION QAM 04/13/21 acetaminophen 325 mg tablet 650 mg PO Q4H PRN tab 05/10/21 bisacodyl 10 mg rectal suppository 10 mg PA DAILY PRN 05/10/21 buspirone 5 mg tablet 5 mg PO BID 05/10/21 cyanocobalamin (vitamin B-12) 2,500 mcg sublingual tablet 2,500 mcg SUBLINGUAL QWEEK tab 05/10/21 ergocalciferol (vitamin D2) 50,000 unit tablet 50,000 unit PO QWEEK tab 05/10/21 gentamicin 0.1 % topical cream 1 applic TOPICAL DAILY g 05/10/21 insulin lispro 100 unit/mL subcutaneous pen 1 sliding scale dose SUBCUT USEASDIRECTD 05/10/21 ipratropium 0.5 mg-albuterol 3 mg (2.5 mg base)/3 mL nebulization soln 3 ml INHALATION Q6H PRN 05/10/21 levothyroxine 137 mcg tablet 137 mcg PO DAILY tab 05/10/21 potassium chloride 20 mEq tablet,extended release 20 meq PO DAILY 05/10/21 carvedilol [Coreg] 3.125 mg PO BID 30 Days #60 tab 07/26/21
--- NOTE | 2021-07-26 15:22 | NURSING ---
This RN taking over care of pt. Report received from Shane GUTIERREZ
== END 2021-07-26 16:07 | disposition home or self-care (01) | DRG 640 ==
LOC: ED 23:09 → PCU 07-23 00:14
PROVIDERS: Internal Medicine Nephrology; Admitting Provider Family Medicine; Emergency Provider Emergency Medicine; PCP Family Medicine; Visit Provider Internal Medicine
DX: E87.6 Hypokalemia (principal); N18.6 End stage renal disease; E43 Unspecified severe protein-calorie malnutrition; I13.2 Hypertensive heart and chronic kidney disease with heart failure and with stage 5 chronic kidney disease, or end stage renal disease; I50.32 Chronic diastolic (congestive) heart failure; E11.22 Type 2 diabetes mellitus with diabetic chronic kidney disease; I95.9 Hypotension, unspecified; I70.1 Atherosclerosis of renal artery; Z79.4 Long term (current) use of insulin; I70.0 Atherosclerosis of aorta; Z99.2 Dependence on renal dialysis; E86.0 Dehydration; I25.10 Atherosclerotic heart disease of native coronary artery without angina pectoris; K21.9 Gastro-esophageal reflux disease without esophagitis; M48.00 Spinal stenosis, site unspecified; M62.84 Sarcopenia; E78.5 Hyperlipidemia, unspecified; E03.9 Hypothyroidism, unspecified; E83.42 Hypomagnesemia; Z79.84 Long term (current) use of oral hypoglycemic drugs; Z95.810 Presence of automatic (implantable) cardiac defibrillator
CPT/HCPCS: 36415; 71045; 74176; 80048; 80053; 81001; 82962; 83605; 83735; 84100; 84484; 85025; 87040; 87070; 87075; 87205; 89050; 90947; 93005; 97110; 97162; 97166; 97535; 99284; J7030; P9612; A4216; G0257

== ENCOUNTER 2021-08-16 16:37 | Inpatient (IN) | payer MEDICARE, SELFPAY ==
[2021-08-16] VITALS (8 sets, daily range): BP systolic 112–135; BP diastolic 45–97; PULSE 72–88; RESP 16–19; TEMP 36.4–37; O2SAT 94–98; BMI 36.1; BMI 34.6
--- NOTE | 2021-08-16 17:23 | CT_ITS ---
STUDY: CT BRAIN WITHOUT CONTRAST REASON FOR EXAM: Female, 81 years old. Technologist Notes pt not feeling well for a couple days. pt was here 3 weeks ago and was admitted for low mag and pot. Pt stated that she feels cold. Head pain confusion TECHNIQUE: Transaxial CT imaging of the brain was performed without administration of intravenous contrast material. Individualized dose optimization techniques were used for this CT. COMPARISON: 12/13/2020 FINDINGS: Normal calvarium. Normal soft tissues. Normal size ventricles and extra-axial spaces for the patient''s age. There are areas of decreased attenuation within the white matter tracts of the supratentorial brain, consistent with microvascular disease changes. Normal basal ganglia and thalami. Normal brainstem. Normal cerebellum. There is no intracranial hemorrhage. There are no findings of an acute ischemic infarction. There are calcifications noted in the distal vertebral arteries. There are calcifications noted in the cavernous carotid arteries. This is consistent for atherosclerotic disease. There is sinus disease. ASPECTS 10 CT/Brain/Head without Contrast IMPRESSION: There are no acute intracranial findings. Electronically Signed: Chao iY MD at 18:31 EDT ,
--- NOTE | 2021-08-16 17:27 | EKG12_ITS ---
Test Reason : AB LABS Blood Pressure : / mmHG Vent. Rate : 070 BPM Atrial Rate : 075 BPM P-R Int : 250 ms QRS Dur : 084 ms QT Int : 430 ms P-R-T Axes : 000 018 075 degrees QTc Int : 464 ms Atrial-paced rhythm with prolonged AV conduction Low voltage QRS Abnormal ECG Confirmed by ORVILLE TAYLOR, ELIER ([id number]), acquisitions editor LENNOX MOCTEZUMA ([id number]) on 08/20/2021 9:56:04 AM Referred By: Confirmed By:NABEEL JACINTO MD
--- NOTE | 2021-08-16 17:50 | RAD_ITS ---
STUDY: XR Chest 1 View 08/16/2021 6:00 PM REASON FOR EXAM: Female, 81 years old. CHEST PAIN short of breath COMPARISON: 07/22/2021 TECHNIQUE: XR Chest 1 View FINDINGS: There is no demonstrated pleural abnormality. 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 Normal heart size. Normal mediastinum. Normal hortensia. Prominent appearing increased interstitial lung markings. Normal visualized pulmonary arteries. There is atherosclerotic calcification of the aortic arch with tortuosity. There are diffuse degenerative changes of the visualized thoracic spine. There is degenerative osteoarthritis of the bilateral shoulders. There is no demonstrated abnormality of the visualized soft tissue structures of the upper abdomen. RAD/Chest 1 View (Portable) IMPRESSION: There are no acute findings. Electronically Signed: Chao Yi MD at 18:12 EDT ,
[2021-08-16 17:52] LABS: Absolute Lymphocyte Count 3.09 X10^3/uL (0.83-4.51); Absolute Neutrophil Count 6.1 X10^3/uL (2.0-7.7); Basophil# 0.04 X10^3/uL; Basophil% 0.4 % (0-1); Hematocrit 35.2 % (37-47); Hemoglobin 11.1 g/dL (12.0-15.0); Lymphocyte # 3.09 X10^3/ul (0.83-4.51); Lymphocyte % 30.2 % (19-41); Mean Corp Hgb Conc 31.5 g/dL (32-36); Mean Corpuscular Hgb 33.2 pg (27.0-32.0); Mean Corpuscular Volume 105.4 fL (81-99); Mean Platelet Vol. 10.4 fl (6.2-12.0); Monocyte# 0.79 X10^3/uL; Monocyte% 7.7 % (0-10); NRBC Flagged by Analyzer 0.2 % (0-5); Neutrophil # 6.13 X10^3/uL (2.7-7.7); Neutrophil % 59.9 % (47-70); Platelet Count 279 K/mm3 (150-450); RBC Distribution Width CV 15.7 % (11.6-14.6); RBC Distribution Width SD 59.9 fl (35.1-43.9); Red Blood Count 3.34 M/mm3 (4.2-5.4); White Blood Count 10.2 K/mm3 (4.4-11.0)
--- NOTE | 2021-08-16 17:57 | EX.ED.DYSGE1 ---
HPI <LUZ ELENA Lockett - Last Filed: 08/16/21 18:58> History of Present Illness Chief Complaint: Abn Labs Narrative Narrative: 81-year-old female with history of kidney failure on peritoneal dialysis, history of hypokalemia, hypomagnesemia, diabetes who presents to the emergency department with complaints of lethargic. Per the daughters who take care of her daily they state that they believe that there is no electrolyte imbalance. Patient is lethargic, patient is pale. PFSH <LUZ ELENA Lockett - Last Filed: 08/16/21 18:58> [facility] Medical History Acute respiratory failure Asthma Bilateral carotid artery stenosis Chronic anemia Chronic diastolic CHF (congestive heart failure) ESRD on peritoneal dialysis Essential hypertension GERD (gastroesophageal reflux disease) Glaucoma Hyperlipidemia Hyperparathyroidism, secondary renal Hypothyroidism Lichenification and lichen simplex chronicus Major depressive disorder Neurodermatitis Non-proliferative diabetic retinopathy, both eyes Nonobstructive atherosclerosis of coronary artery Normocytic anemia Nummular eczema Obesity 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) Recurrent syncope (03/28/21) Stage 3 chronic kidney disease Stenosis of left carotid artery Torsades de pointes (03/28/21) Transient visual loss, right eye (11/2020) Type II diabetes mellitus Ventricular tachycardia Vitamin B 12 deficiency Home Medications atorvastatin 80 mg tablet 80 mg PO QHS 10/12/18 [History Last Taken Unknown] omeprazole 40 mg capsule,delayed release 40 mg PO DAILY 10/12/18 [History Last Taken Unknown] albuterol sulfate 90 mcg/actuation aerosol inhaler 2 puff INHALATION Q4H PRN g 10/13/18 [History Last Taken Unknown] calcitriol 0.25 mcg capsule 0.25 mcg PO .COMPLEX cap 10/26/19 [History Last Taken Unknown] latanoprost 0.005 % eye drops 1 drp OPHTHALMIC BID ml 10/26/19 [History Last Taken Unknown] montelukast 10 mg tablet 10 mg PO DAILY 10/26/19 [History Last Taken Unknown] Flovent HFA 1 puff INHALATION BID 03/28/21 [History Last Taken Unknown] insulin glargine [Lantus Solostar U-100 Insulin] 8 unit SUBCUT BID 03/28/21 [History Last Taken Unknown] pioglitazone 15 mg PO DAILY 03/28/21 [History Last Taken Unknown] diclofenac 1 % topical gel and kinesiology tape 1 ea TOPICAL DAILY PRN 04/13/21 [History Last Taken Unknown] lidocaine 4 % topical patch 1 patch TOPICAL DAILY PRN 04/13/21 [History Last Taken Unknown] polyethylene glycol 3350 17 gram oral powder packet 17 g PO DAILY 04/13/21 [History Last Taken Unknown] sennosides 8.6 mg tablet 8.6 mg PO BID 04/13/21 [History Last Taken Unknown] tiotropium bromide 2.5 mcg/actuation mist for inhalation 2 puff INHALATION QAM 04/13/21 [History Last Taken Unknown] acetaminophen 325 mg tablet 650 mg PO Q4H PRN tab 05/10/21 [History Last Taken Unknown] bisacodyl 10 mg rectal suppository 10 mg AR DAILY PRN 05/10/21 [History Last Taken Unknown] buspirone 5 mg tablet 5 mg PO BID 05/10/21 [History Last Taken Unknown] cyanocobalamin (vitamin B-12) 2,500 mcg sublingual tablet 2,500 mcg SUBLINGUAL QWEEK tab 05/10/21 [History Last Taken Unknown] ergocalciferol (vitamin D2) 50,000 unit tablet 50,000 unit PO QWEEK tab 05/10/21 [History Last Taken Unknown] gentamicin 0.1 % topical cream 1 applic TOPICAL DAILY g 05/10/21 [History Last Taken Unknown] insulin lispro 100 unit/mL subcutaneous pen 1 sliding scale dose SUBCUT USEASDIRECTD 05/10/21 [History Last Taken Unknown] ipratropium 0.5 mg-albuterol 3 mg (2.5 mg base)/3 mL nebulization soln 3 ml INHALATION Q6H PRN 05/10/21 [History Last Taken Unknown] levothyroxine 137 mcg tablet 137 mcg PO DAILY tab 05/10/21 [History Last Taken Unknown] potassium chloride 20 mEq tablet,extended release 20 meq PO DAILY 05/10/21 [History Last Taken Unknown] carvedilol [Coreg] 3.125 mg PO BID 30 Days #60 tab 07/26/21 [Rx Last Taken Unknown] Allergy/AdvReac Type Severity Reaction Status Date / Time metformin [From Glucophage] Allergy Severe renal Verified 08/16/21 16:43 failure adhesive Allergy Intermediate blisters Verified 08/16/21 16:43 oxycodone Allergy Intermediate hallucinati Verified 08/16/21 16:43 ons tramadol Allergy Intermediate Vomiting Verified 08/16/21 16:43 ERIC Inhibitors AdvReac Intermediate cough Verified 08/16/21 16:43 Family History Father Heart disease Hypertension Suicide Mother Hypertension CVA (cerebral vascular accident) COPD (chronic obstructive pulmonary disease) CAD (coronary artery disease) Surgical History History of bilateral knee replacement (1989) History of breast biopsy History of implantable cardiac defibrillator (ICD) (04/02/21) History of left heart catheterization (03/28/21) History of open reduction and internal fixation (ORIF) procedure History of right cataract extraction (10/03/11) History of temporary cardiac pacemaker treatment (03/28/21) History of tonsillectomy Social History household members: none Smoking Status: Never smoker alcohol intake: never substance use type: does not use caffeine: Yes Type: coffee Number of servings: 2 ROS <LUZ ELENA Lockett - Last Filed: 08/16/21 18:58> ROS ED ROS Narrative Constitutional: Negative for fever, chills, weight loss. Positive for weakness, lethargic Eyes: Negative for vision loss, vision change, double vision ENT: Negative for any sore throat, ear pain, congestion Cardiovascular: Negative for any chest pain, tightness, palpitations, racing heartbeat Respiratory: Negative for any cough, sputum production, hemoptysis, shortness of breath, shortness of breath on exertion, orthopnea Gastrointestinal: Negative for any abdominal pain, nausea, vomiting, diarrhea, constipation, blood in stool, blood in vomit : Negative for any urinary frequency, incontinence, dysuria, retention, blood in urine Muscle skeletal: Negative for any muscle joint pain, stiffness, myalgias, arthralgias, neck pain, back pain Neurological: Negative for any headache, dizziness, syncope, numbness or tingling Skin: Negative for any rashes, lumps, itching, abrasions, lacerations Psychiatric: Negative for any depression, anxiety, stress, suicidal ideation, homicidal ideation Hematologic: Negative for any easy bruising, excessive bruising, easy bleeding Allergies: Negative for any eczema, hives, rash EXAM <LUZ ELENA Lockett - Last Filed: 08/16/21 18:58> Physical Exam Narrative Exam Narrative: Vital signs reviewed. Patient is alert however she does appear to be lethargic. Patient does sleep right after talking. Patient does appear to be pale. HEET: Head normocephalic atraumatic, TMs clear bilaterally. Posterior pharynx is clear, moist mucous membranes. Nares clear bilaterally. Neck: Supple with no lymphadenopathy or tenderness. No signs of meningismus, negative jolt sign. Cardiac: Regular rate and rhythm no murmurs gallops or rubs, equal peripheral pulses bilaterally. Respiratory: Lungs clear to auscultation bilaterally. No chest tenderness. Abdomen: Soft, nontender, nondistended. No abdominal bruit or pulsatile masses. No hepatosplenomegaly Extremities: No peripheral edema, no signs of gross trauma or deformity. Active full range of motion of all extremities. Neuro: Cranial nerves II through XII intact, no focal neurological deficits. Skin: Clean dry and intact with no rash, purpura, petechiae, vesicles or pustules. Backslash flank: No CVA tenderness, no midline spinal tenderness, no deformity. Psych: Normal mood and affect. No SI, HI or acute psychosis. Const Vital Signs: 08/16/21 16:38 08/16/21 16:41 08/16/21 17:24 Temperature 98.3 F 98.3 F Temperature Source Temporal Temporal Pulse Rate 79 76 Respiratory Rate 18 19 H Respiratory Effort Normal Non-Labored Respiratory Pattern Normal Blood Pressure 127/97 H 127/97 H Blood Pressure Mean 107 107 Pulse Ox 98 98 Oxygen Delivery Method Nasal Cannula Nasal Cannula Oxygen Flow Rate (L/min) 2 2 <Dr. Radu Gay DO - Last Filed: 08/16/21 18:29> Physical Exam Const Vital Signs: 08/16/21 16:38 08/16/21 16:41 08/16/21 17:24 Temperature 98.3 F 98.3 F Temperature Source Temporal Temporal Pulse Rate 79 76 Respiratory Rate 18 19 H Respiratory Effort Normal Non-Labored Respiratory Pattern Normal Blood Pressure 127/97 H 127/97 H Blood Pressure Mean 107 107 Pulse Ox 98 98 Oxygen Delivery Method Nasal Cannula Nasal Cannula Oxygen Flow Rate (L/min) 2 2 [facility] <Raul Ellis, [employer] MANAGER-C - Last Filed: 08/16/21 18:58> [facility] Narrative Medical decision making narrative: Patient appears lethargic, patient appears pale, slightly hypotensive, patient presents to the emergency department with complaints of lethargy, inability to care for herself secondary to her family. Patient does appear lethargic, patient did receive a full work-up, patient's laboratory studies show a CBC with a hemoglobin 11.1, this is higher than usual for the patient, patient's chemistry showed chronic renal disease with a creatinine of 6.27, this appears baseline, patient is somewhere between 5.0-6.0 consistently. Patient's potassium was 5.3, patient on reassessment still appeared lethargic. Urinalysis was not completed yet. Patient did receive a chest x-ray as well as CT of the brain these were unremarkable. Patient's chest x-ray was read by the ER attending. Patient's EKG was unremarkable, showing a rate of 70 bpm which was a paced rhythm. At this time I do believe the patient needs admitted to the hospital for lethargic, failure to thrive, chronic kidney disease. Patient does live at home and cannot care for self. Family is agreeable with the plan. Patient is stable for admission. Lab Data Labs: Laboratory Results - last 24 hr 08/16/21 08/16/21 16:50 16:50 WBC 10.2 RBC 3.34 L Hgb 11.1 L Hct 35.2 L MCV 105.4 H MCH 33.2 H MCHC 31.5 L RDW Std Deviation 59.9 H RDW Coeff of Alanna 15.7 H Plt Count 279 MPV 10.4 Immature Gran % (Auto) 0.800 Neut % (Auto) 59.9 Lymph % (Auto) 30.2 [place] % (Auto) 7.7 Eos % (Auto) 1.0 Baso % (Auto) 0.4 Absolute Neuts (auto) 6.1 Absolute Lymphs (auto) 3.09 Nucleated RBC % 0.2 Sodium 136 Potassium 5.3 H Chloride 98 Carbon Dioxide 29.0 Anion Gap 9 BUN 32 H Creatinine 6.27 H Estim Creat Clear Calc 5.49 Est GFR (MDRD) Af Amer 8 L Est GFR (MDRD) Non-Af 7 L BUN/Creatinine Ratio 5.1 L Glucose 45 L Calcium 9.0 Magnesium 1.5 L Radiography Diagnostic Testing: Clinical Impression(s) from Imaging Studies Brain CT 08/16/21 17:23 IMPRESSION: There are no acute intracranial findings. Electronically Signed: Chao Yi MD at 18:31 EDT , Chest X-Ray 08/16/21 17:50 IMPRESSION: There are no acute findings. Electronically Signed: Chao Yi MD at 18:12 EDT , EKG Atrial paced rhythm : Comments: Rate of 70 bpm, AR interval 250 ms, QRS duration 84 ms, no acute ST elevation, no acute infarct noted <Dr. Radu Gay, DO - Last Filed: 08/16/21 18:29> [facility] MDM Narrative Medical decision making narrative: I have personally performed a face to face assessment of the patient and have reviewed the CARLY Note. I performed a substantive portion of the visit including all aspects of the following. My ziegler findings include: History: Patient presents with generalized weakness that has been getting worse over the past few days. Patient has a history of chronic kidney disease and is on peritoneal dialysis. Patient was recently treated for urinary tract infection. Patient does not really make much urine on her own. Patient denies any fevers but admits to some chills. Patient denies any chest pain or shortness of breath. Patient denies any nausea or vomiting. Exam: Vital signs are stable. Patient is afebrile. Patient is in no acute distress. Oral mucosa is pink and moist. Neck is supple. Trachea is midline. There is no JVD. Heart was regular rate and rhythm. Lungs were diminished bilaterally but were otherwise clear. Abdomen is soft. Bowel sounds are normal. There is no tenderness. Cranial nerves II through XII are grossly intact. There are no focal motor or sensory deficits. Medical Decison Making: Portable 1 view chest x-ray was obtained. On my interpretation, lung pemberton are clear. There is normal cardiac silhouette. Bony thorax is normal. There is no acute process noted. Radiologist also interpreted the x-ray and agrees. Patient CBC shows a mild anemia with a hemoglobin of 11.1 and hematocrit 35.2. Basic metabolic profile shows a creatinine of 6.27 and BUN of 32. These are consistent with prior results. Potassium was slightly elevated at 5.3. Magnesium was slightly low at 1.5. CT scan of the brain was obtained. There is no acute intracranial abnormality noted. This was interpreted by the radiologist and reviewed by myself. Case will be discussed with the hospitalist. Patient will likely need to be admitted to the hospital for failure to thrive and debility. Lab Data Attestation: I reviewed the patient's lab results. Labs: Laboratory Results - last 24 hr 08/16/21 08/16/21 16:50 16:50 WBC 10.2 RBC 3.34 L Hgb 11.1 L Hct 35.2 L MCV 105.4 H MCH 33.2 H MCHC 31.5 L RDW Std Deviation 59.9 H RDW Coeff of Alanna 15.7 H Plt Count 279 MPV 10.4 Immature Gran % (Auto) 0.800 Neut % (Auto) 59.9 Lymph % (Auto) 30.2 [place] % (Auto) 7.7 Eos % (Auto) 1.0 Baso % (Auto) 0.4 Absolute Neuts (auto) 6.1 Absolute Lymphs (auto) 3.09 Nucleated RBC % 0.2 Sodium 136 Potassium 5.3 H Chloride 98 Carbon Dioxide 29.0 Anion Gap 9 BUN 32 H Creatinine 6.27 H Estim Creat Clear Calc 5.49 Est GFR (MDRD) Af Amer 8 L Est GFR (MDRD) Non-Af 7 L BUN/Creatinine Ratio 5.1 L Glucose 45 L Calcium 9.0 Magnesium 1.5 L Radiography Chest X-Ray - ED: 1 View, Read by ED Physician, Read by Radiologist and No Acute Disease Diagnostic Testing: Clinical Impression(s) from Imaging Studies Brain CT 08/16/21 17:23 IMPRESSION: There are no acute intracranial findings. Electronically Signed: Chao Yi MD at 18:31 EDT , Chest X-Ray 08/16/21 17:50 IMPRESSION: There are no acute findings. Electronically Signed: Chao Yi MD at 18:12 EDT Reading Location ID and State: [facility] / [place] , Service support , Discharge Plan Dx/Rx/DC Orders Clinical Impression: Lethargic, Chronic kidney disease Disposition Disposition: Acute Care Hospital [facility]
[2021-08-16 18:01] LABS: Anion Gap 9 (5-15); BUN 32 mg/dL (7-18); BUN/Creat Ratio 5.1 RATIO (10-20); Chloride 98 mmol/L (98-107); Creatinine, Serum 6.27 mg/dL (0.55-1.02); EST Glomerular Filtration Rate 7 mL/min (>60); Est Glom Filt Rate - Afr Amer 8 mL/min (>60); Estimated Creatinine Clearance 5.49 ml/min; Glucose 45 mg/dL (74-106); Magnesium 1.5 mg/dL (1.6-2.6); Potassium 5.3 mmol/L (3.5-5.1); Sodium Level 136 mmol/L (136-145)
--- NOTE | 2021-08-16 18:52 | HP.PCM.HOS_ITS ---
HPI - General General Date of Admission: 08/16/21 Date of Service: 08/16/21 Chief Complaint: FTT Adult, increased lethargy. HPI Narrative The patient is a 81 y/o F w/ PMHx: Asthma, Chronic anemia/AOCD, HTN, HLD, Chronic Diastolic CHF, ESRD on PD, GERD, Hypothyroidism, Morbid Obesity, Non- obstructive CAD, Diabetes mellitus type II, recent discharge 07/26/21 following admission for acute hypokalemia discharged to home who now re-presents to the [facility] ED on 08/16/21 secondary to increased fatigue, lethargy and inability for her to care for herself at home PCP evaluation following her recent discharge and diagnosis of UTI at that time placed on nitrofurantoin 100 mg twice daily which she attempted to take however towards the end of the regimen on the sixth day she had intractable nausea and stopped this medication with progressive wors ening status since then. In the ED urine sample was obtained and was noted to be markedly purulent with UA, urine culture pending. Based on prior cultures and discussion with ED physician patient will be administered IV Rocephin. Patient does still make urine. Work-up in the ED included T98.3, heart rate 79, BP 127/97, respiratory rate 18, 98% on 2 L nasal cannula, CBC with WC 10.2, hemoglobin 0.1, platelets 279 without marked shift, CMP with potassium 5.3 however moderately hemolyzed, BUN/creatinine 32/6.27, glucose of 45, magnesium 1.5, hepatic profile pending per discussion with ED physician, ammonia level pending as well as ABG as initially did not have urine and was unclear source of patient's lethargy, urinalysis noted to be significantly turbid with obvious evidence of UTI with 500 leukocyte esterase, greater than 100 urine WBCs, urine bacteria 4+ with urine culture pending per ED, chest x-ray with no acute cardiopulmonary findings, CT head with no acute intracranial finding. In the ED patient ministered IV Rocephin. [facility] Medical History Acute respiratory failure Asthma Bilateral carotid artery stenosis Chronic anemia Chronic diastolic CHF (congestive heart failure) ESRD on peritoneal dialysis Essential hypertension GERD (gastroesophageal reflux disease) Glaucoma Hyperlipidemia Hyperparathyroidism, secondary renal Hypothyroidism Lichenification and lichen simplex chronicus Major depressive disorder Neurodermatitis Non-proliferative diabetic retinopathy, both eyes Nonobstructive atherosclerosis of coronary artery Normocytic anemia Nummular eczema Obesity 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) Recurrent syncope (03/28/21) Stage 3 chronic kidney disease Stenosis of left carotid artery Torsades de pointes (03/28/21) Transient visual loss, right eye (11/2020) Type II diabetes mellitus Ventricular tachycardia Vitamin B 12 deficiency Home Medications atorvastatin 80 mg tablet 80 mg PO QHS 10/12/18 [History Last Taken Unknown] omeprazole 40 mg capsule,delayed release 40 mg PO DAILY 10/12/18 [History Last Taken Unknown] albuterol sulfate 90 mcg/actuation aerosol inhaler 2 puff INHALATION Q4H PRN g 10/13/18 [History Last Taken Unknown] calcitriol 0.25 mcg capsule 0.25 mcg PO .COMPLEX cap 10/26/19 [History Last Taken Unknown] latanoprost 0.005 % eye drops 1 drp OPHTHALMIC BID ml 10/26/19 [History Last Taken Unknown] montelukast 10 mg tablet 10 mg PO DAILY 10/26/19 [History Last Taken Unknown] Flovent HFA 1 puff INHALATION BID 03/28/21 [History Last Taken Unknown] insulin glargine [Lantus Solostar U-100 Insulin] 8 unit SUBCUT BID 03/28/21 [History Last Taken Unknown] pioglitazone 15 mg PO DAILY 03/28/21 [History Last Taken Unknown] diclofenac 1 % topical gel and kinesiology tape 1 ea TOPICAL DAILY PRN 04/13/21 [History Last Taken Unknown] lidocaine 4 % topical patch 1 patch TOPICAL DAILY PRN 04/13/21 [History Last Taken Unknown] polyethylene glycol 3350 17 gram oral powder packet 17 g PO DAILY 04/13/21 [History Last Taken Unknown] sennosides 8.6 mg tablet 8.6 mg PO BID 04/13/21 [History Last Taken Unknown] tiotropium bromide 2.5 mcg/actuation mist for inhalation 2 puff INHALATION QAM 04/13/21 [History Last Taken Unknown] acetaminophen 325 mg tablet 650 mg PO Q4H PRN tab 05/10/21 [History Last Taken Unknown] bisacodyl 10 mg rectal suppository 10 mg ME DAILY PRN 05/10/21 [History Last Taken Unknown] buspirone 5 mg tablet 5 mg PO BID 05/10/21 [History Last Taken Unknown] cyanocobalamin (vitamin B-12) 2,500 mcg sublingual tablet 2,500 mcg SUBLINGUAL QWEEK tab 05/10/21 [History Last Taken Unknown] ergocalciferol (vitamin D2) 50,000 unit tablet 50,000 unit PO QWEEK tab 2 [History Last Taken Unknown] gentamicin 0.1 % topical cream 1 applic TOPICAL DAILY g 05/10/21 [History Last Taken Unknown] insulin lispro 100 unit/mL subcutaneous pen 1 sliding scale dose SUBCUT US EASDIRECTD 05/10/21 [History Last Taken Unknown] ipratropium 0.5 mg-albuterol 3 mg (2.5 mg base)/3 mL nebulization soln 3 ml INHALATION Q6H PRN 05/10/21 [History Last Taken Unknown] levothyroxine 137 mcg tablet 137 mcg PO DAILY tab 05/10/21 [History Last Taken Unknown] potassium chloride 20 mEq tablet,extended release 20 meq PO DAILY 05/10/21 [History Last Taken Unknown] carvedilol [Coreg] 3.125 mg PO BID 30 Days #60 tab 07/26/21 [Rx Last Taken Unknown] Allergy/AdvReac Type Severity Reaction Status Date / Time metformin [From Glucophage] Allergy Severe renal Verified 08/16/21 16:43 failure adhesive Allergy Intermediate blisters Verified 08/16/21 16:43 oxycodone Allergy Intermediate hallucinati Verified 08/16/21 16:43 ons tramadol Allergy Intermediate Vomiting Verified 08/16/21 16:43 ERIC Inhibitors AdvReac Intermediate cough Verified 08/16/21 16:43 Family History Father Heart disease Hypertension Suicide Mother Hypertension CVA (cerebral vascular accident) COPD (chronic obstructive pulmonary disease) CAD (coronary artery disease) Surgical History History of bilateral knee replacement (1989) History of breast biopsy History of implantable cardiac defibrillator (ICD) (04/02/21) History of left heart catheterization (03/28/21) History of open reduction and internal fixation (ORIF) procedure History of right cataract extraction (10/03/11) History of temporary cardiac pacemaker treatment (03/28/21) History of tonsillectomy Social History household members: none Smoking Status: Never smoker alcohol intake: never substance use type: does not use caffeine: Yes Type: coffee Number of servings: 2 ROS ROS Narrative Admission Review of Systems: CONSTITUTIONAL: No weight loss, fever, chills, + weakness or fatigue. HEENT: Eyes: No visual loss, blurred vision, double vision or yellow sclerae. Ears, Nose, Throat: No hearing loss, sneezing, congestion, runny nose or sore throat. SKIN: No rash or itching, lesions, wounds. CARDIOVASCULAR: No chest pain, chest pressure or chest discomfort, palpitations, edema, orthopnea, syncopal events. RESPIRATORY: No shortness of breath, cough or sputum, wheezing, hemoptysis. GASTROINTESTINAL: + anorexia, nausea, No vomiting or diarrhea, abdominal pain, melena, BRBPR. GENITOURINARY: + Purulent urine, decreased UOP with ESRD status. NEUROLOGICAL: + Confusion. No headache, dizziness, syncope, paralysis, ataxia, numbness or tingling in the extremities, focal weakness, change in bowel or yanci dder control, seizure. MUSCULOSKELETAL: + muscle, back pain, joint pain or stiffness. HEMATOLOGIC: + anemia, bleeding or bruising. LYMPHATICS: No enlarged nodes. No history of splenectomy. PSYCHIATRIC: + history of depression or anxiety. ENDOCRINOLOGIC: No reports of sweating, cold or heat intolerance. No polyuria or polydipsia. ALLERGIES: + history of asthma, hives, eczema or rhinitis. Vital Signs Vital Signs Vital Signs: 08/16/21 16:38 08/16/21 16:41 08/16/21 17:24 Temperature 98.3 F 98.3 F Temperature Source Temporal Temporal Pulse Rate 79 76 Respiratory Rate 18 19 H Respiratory Effort Normal Non-Labored Respiratory Pattern Normal Blood Pressure 127/97 H 127/97 H Blood Pressure Mean 107 107 Pulse Ox 98 98 Oxygen Delivery Method Nasal Cannula Nasal Cannula Oxygen Flow Rate (L/min) 2 2 Weight Weight: 191 lb 2.252 oz Body Mass Index (BMI) 36.1 Physical Exam Narrative Physical Examination: General: Awake, alert, oriented to self, place and recent events, remains charlene ative, seated upright the ED bed, fatigued and ill-appearing. Skin: Pale color, normal turgor, no icterus, no cyanosis. HEENT: AT/NC, EOMI, PERRLA, dry MM, no carotid bruits or JVD noted. Lungs: Diminished, greater bases, mildly decreased effort, no rales, ronchi or wheezing. Heart: Currently regular rate and rhythm; no gallop, rub audible. Abdomen: Soft, obese, mild suprapubic discomfort, ND, distant mildly hyperactive BS, no HSM. Extremities: No cyanosis, clubbing, or edema. Neurological: Patient awake, alert, oriented as noted, cognitive function improving, suspect nearing base intact; pupils equally reactive to light and accommodation, cranial nerves II-XII grossly normal, moving all 4 extremities, no focal deficits, strength moderately to severely global decreased Psychiatric: Affect appears flat, fatigued, ill-appearing, no acute evidence of depressive or anxiety feelings. Results Lab / Micro Data Result Diagrams: 08/16/21 16:50 08/16/21 16:50 Labs: Laboratory Results - last 24 hr 08/16/21 16:50: WBC 10.2, RBC 3.34 L, Hgb 11.1 L, Hct 35.2 L, MCV 105.4 H, MCH 33.2 H, MCHC 31.5 L, RDW Std Deviation 59.9 H, RDW Coeff of Alanna 15.7 H, Plt Count 279, MPV 10.4, Immature Gran % (Auto) 0.800, Neut % (Auto) 59.9, Lymph % (Auto) 30.2, Davis % (Auto) 7.7, Eos % (Auto) 1.0, Baso % (Auto) 0.4, Absolute Neuts (auto) 6.1, Absolute Lymphs (auto) 3.09, Nucleated RBC % 0.2 08/16/21 16:50: Sodium 136, Potassium 5.3 H, Chloride 98, Carbon Dioxide 29.0, Anion Gap 9, BUN 32 H, Creatinine 6.27 H, Estim Creat Clear Calc 5.49, Est GFR (MDRD) Af Amer 8 L, Est GFR (MDRD) Non-Af 7 L, BUN/Creatinine Ratio 5.1 L, Glucose 45 L, Calcium 9.0, Magnesium 1.5 L Radiology Impression Brain CT 08/16/21 17:23 IMPRESSION: There are no acute intracranial findings. Electronically Signed: Chao Yi MD at 18:31 EDT , Chest X-Ray 08/16/21 17:50 IMPRESSION: There are no acute findings. Electronically Signed: Chao Yi MD at 18:12 EDT , Assessment & Plan Assessment/Plan (1) Encephalopathy: (2) Complicated urinary tract infection: PLAN: The patient is a 81 y/o F w/ PMHx: Asthma, Chronic anemia/AOCD, HTN, HLD, Chronic Diastolic CHF, ESRD on PD, GERD, Hypothyroidism, Morbid Obesity, Non-obstructive CAD, Diabetes mellitus type II, recent discharge 07/26/21 following admission for acute hypokalemia discharged to home who now re-presents to the [facility] ED on 08/16/21 secondary to increased fatigue, lethargy and inability for her to care for herself at home PCP evaluation following her recent discharge and diagnosis of UTI at that time placed on nitrofurantoin 100 mg tw ice daily which she attempted to take however towards the end of the regimen on the sixth day she had intractable nausea and stopped this medication with progressive worsening status since then. #1. Acute Encephalopathy secondary to Acute Complicated Urinary Tract Infection and likely confounded by hypoglycemia as noted #3: Will admit to [facility] upon ED evaluation remarkable, pending UCx, continue judicious IVFs, monitor I/Os, continue IV Rocephin w/ transition as able pending sensitivities and speciation. Bld cx x 2 obtained in the ED and pending. PT/OT/CM consultations for discharge planning. Fall and aspiration precautions. #2. Hyperkalemia, confounded by moderate hemolysis: Admission potassium 5.3, moderate hemolysis noted therefore could certainly be in normal range, we will temporarily hold patient's potassium especially given recent altered regimen with admission with low potassium with repeat CMP in a.m. and if normal range recommend strongly continuation. #3. Diabetes mellitus type II with hypoglycemia: Hold oral home regimen, temporarily holding home insulin regimen, ADA diet, accu checks w/ ISS cautious given low BS. Will add back home insulin regimen once oral intake improved and assure no recurrent hypoglycemia. #4. Hypomagnesia: Magnesium 1.5, IV supplementation requested, repeat level in AM. #5. ESRD: We will consult nephrology, continue her usual home regimen, does still make some urine, judiciously hydrating. #6. Hypothyroidism: We will continue patient home levothyroxine regimen. #7. Nonobstructive CAD: We will continue patient home aspirin, statin, Coreg regimen. #8. Anxiety and depression: We will continue patient home BuSpar with hold parameters as needed pending sedation. #9. Hypertension: Patient BP low range in the ED, will continue patient home Coreg regimen with hold parameters as needed, as needed IV hydralazine. #10. Hyperlipidemia: We will continue patient on statin therapy. #11. Chronic anemia/AOCD: Patient on chronic vitamin B supplementation weekly, admission hemoglobin 11.1, stable compared to baseline, continue to trend. #12. Chronic asthma with allergic rhinitis: We will continue patient home inhalers, as needed albuterol, encourage head of bed and I-S, continue patient home montelukast and Flovent regimen. #13. Obesity: Weight loss and lifestyle changes encouraged. #14. GERD: We will continue patient on PPI. #15. DVT prophylaxis: SCDs, heparin. #16. CODE status: Patient RACH is her daughter who is present and living will is currently in place. Discussed CODE status at length including difference between FULL code, DNR-CCA and DNR-CC status. Following discussions about the differences in these status, requested DNR-CCA, no intubation status. Advanced Care Planning Face to Face Time: 16 minutes. Charges/Coding Visit Charges Inpatient E&M: 77504 Init Hosp L3 Procedures Hospitalists Procedures: 84696 Advncd Care Plan 30 Min
[2021-08-16 19:07] LABS: Mucous, Urine 0 SEEN /hpf (<or=2+)
[2021-08-16 19:10] LABS: Color, Urine Yellow (Yellow); Glucose, Dipstick Normal (Normal); Ketone-Dipstick Negative (Negative); Leukocyte Esterase-Dipstick 500 /ul (Negative); Nitrite-Dipstick Negative (Negative); Occult Blood-Urine 150 /ul (Negative); Protein-Dipstick 100 mg/dl (Negative); Specific Gravity, Urine 1.015 (1.002-1.030); Urine Bilirubin Dipstick Negative (Negative); Urine Clarity Turbid (Clear); Urine Urobilinogen Normal (Normal)
[2021-08-16 19:30] LABS: White Blood Cells >100 SEEN /hpf (0-5)
[2021-08-16 19:32] LABS: Bacteria 4+ /hpf (None Seen); Red Blood Cells-Urine 10-25 SEEN /hpf (0-5); Squamous Epithelial Cells - UA 5-10 SEEN /hpf (5-10)
[2021-08-16] MEDS: Ceftriaxone 1 GM/50 ML BAG IV (19:33)
[2021-08-16 19:55] LABS: Allen Test Positive; Base Excess 0 mmol/L (-2 to +2); Bicarbonate 25.1 mmol/L (22-26); Blood Gas Specimen Type ART; O2 Delivery Device Room Air; PO2 89 mmHG (75-100); SITE L Radial; SO2 97 % (95-99); Total Carbon Dioxide 26 mmol/L; pCO2 40.6 mmHg (35-45)
[2021-08-16] MEDS: Dextrose 50%-Water 25 GM/50 ML DISP.SYRIN IV (20:01)
--- NOTE | 2021-08-16 20:05 | NURSING ---
Addendum entered by Marjorie Galvez 08/16/21 20:25: BLOOD SUGAR RECHECK 149. Original Note: BLOOD SUGAR 45 ON LAB WORK. OJ AND COOKIES GIVEN. RECHECK BLOOD SUGAR 20. D50 GIVEN.
[2021-08-16 20:31] LABS: Bedside Glucose 149 mg/dL (74-106)
[2021-08-16 20:52] LABS: AST(SGOT) 36 U/L (15-37); Alanine Aminotransfer ALT/SGPT 19 U/L (13-56); Albumin, Serum 1.6 g/dL (3.2-5.0); Alkaline Phosphatase 129 U/L (45-117); Bilirubin, Direct 0.08 mg/dL (0.00-0.30); Globulin 4.4 g/dL (2.2-4.2)
[2021-08-16] MEDS: 0.9% Normal Saline 1,000 ML 100 ML IV (22:17)
[2021-08-16] MEDS: Heparin Injection (Vial) 5,000 UNIT/ML VIAL 5000 UNIT SC (22:18)
[2021-08-16] MEDS: busPIRone 5 MG Tablet PO (22:19)
[2021-08-16] MEDS: Atorvastatin Calcium 80 MG Tablet PO (22:19)
[2021-08-16] MEDS: Senna Tablet 1 TABLET PO (22:19)
[2021-08-16 23:40] LABS: Bedside Glucose 147 mg/dL (74-106)
[2021-08-17] VITALS (11 sets, daily range): BP systolic 101–130; BP diastolic 38–95; PULSE 54–101; RESP 16–19; TEMP 36.6–36.8; O2SAT 92–100
[2021-08-17] MEDS: Acetaminophen 325 MG Tablet 650 MG PO (03:10)
[2021-08-17 05:21] LABS: Absolute Lymphocyte Count 2.93 X10^3/uL (0.83-4.51); Absolute Neutrophil Count 4.4 X10^3/uL (2.0-7.7); Basophil# 0.04 X10^3/uL; Basophil% 0.5 % (0-1); Eosinophil# 0.15 X10^3/uL; Eosinophils% 1.8 % (0-5); Hematocrit 29.2 % (37-47); Hemoglobin 9.3 g/dL (12.0-15.0); Lymphocyte # 2.93 X10^3/ul (0.83-4.51); Lymphocyte % 35.2 % (19-41); Mean Corp Hgb Conc 31.8 g/dL (32-36); Mean Corpuscular Hgb 33.5 pg (27.0-32.0); Mean Platelet Vol. 9.9 fl (6.2-12.0); Monocyte% 8.4 % (0-10); NRBC Flagged by Analyzer 0 % (0-5); Neutrophil # 4.44 X10^3/uL (2.7-7.7); Neutrophil % 53.4 % (47-70); Platelet Count 223 K/mm3 (150-450); RBC Distribution Width CV 15.4 % (11.6-14.6); RBC Distribution Width SD 58.7 fl (35.1-43.9); Red Blood Count 2.78 M/mm3 (4.2-5.4); White Blood Count 8.3 K/mm3 (4.4-11.0)
[2021-08-17 05:51] LABS: ALB/GLOB Ratio 0.4 RATIO (0.9-2.4); AST(SGOT) 23 U/L (15-37); Alanine Aminotransfer ALT/SGPT 15 U/L (13-56); Albumin, Serum 1.3 g/dL (3.2-5.0); Alkaline Phosphatase 104 U/L (45-117); Anion Gap 7 (5-15); BUN 36 mg/dL (7-18); BUN/Creat Ratio 5.5 RATIO (10-20); Chloride 100 mmol/L (98-107); Creatinine, Serum 6.54 mg/dL (0.55-1.02); EST Glomerular Filtration Rate 7 mL/min (>60); Est Glom Filt Rate - Afr Amer 8 mL/min (>60); Estimated Creatinine Clearance 5.26 ml/min; Globulin 3.5 g/dL (2.2-4.2); Glucose 118 mg/dL (74-106); Magnesium 1.9 mg/dL (1.6-2.6); Phosphorus 3.3 mg/dL (2.5-4.9); Potassium 5.4 mmol/L (3.5-5.1); Protein, Total 4.8 g/dL (6.4-8.2); Sodium Level 133 mmol/L (136-145)
[2021-08-17] MEDS: Levothyroxine 137 MCG Tablet PO (06:57)
[2021-08-17 07:05] LABS: Bedside Glucose 89 mg/dL (74-106)
[2021-08-17] MEDS: Ipratropium 0.5 MG/2.5 ML SOLUTION INHALATION ×2 (07:25→19:39)
[2021-08-17] MEDS: Budesonide Respules 0.5 MG/2 ML AMPUL.NEB. INHALATION ×2 (07:25→19:39)
[2021-08-17 07:26] LABS: Bedside Glucose < 10 mg/dL (74-106)
[2021-08-17 07:26] LABS: Bedside Glucose 20 mg/dL (74-106)
[2021-08-17] MEDS: Carvedilol 3.125 MG TABLET PO ×2 (08:14→16:55)
[2021-08-17] MEDS: Montelukast 10 MG Tablet PO (08:14)
[2021-08-17] MEDS: busPIRone 5 MG Tablet PO ×2 (08:14→21:28)
[2021-08-17] MEDS: Calcitriol 0.25 MCG Capsule PO (08:14)
[2021-08-17] MEDS: Aspirin 81 MG TAB.CHEW PO (08:14)
[2021-08-17] MEDS: Latanoprost 0.005% 1 Bottle 1 DRP OPHTHALMIC ×2 (08:15→21:27)
[2021-08-17] MEDS: Senna Tablet 1 TABLET PO ×2 (08:15→21:28)
[2021-08-17] MEDS: Pantoprazole Sodium 40 MG Tablet PO (08:15)
[2021-08-17] MEDS: Heparin Injection (Vial) 5,000 UNIT/ML VIAL 5000 UNIT SC ×2 (08:16→21:24)
--- NOTE | 2021-08-17 08:56 | CON.PCM.RE_ITS ---
Assessment & Plan Assessment/Plan (1) ESRD on peritoneal dialysis: (2) Complicated urinary tract infection: (3) Encephalopathy: (4) Hyperkalemia: PLAN: Patient was admitted for further evaluation and treatment for ur inary tract infection, confusion secondary to UTI and lethargy. Brain CT did not show any acute intracranial findings; chest x-ray clear, no acute findings. UA positive for leukocyte esterase and WBCs, urine culture is pending. Blood cultures pending. She is on IV antibiotics, Rocephin. We will continue peritoneal dialysis support this evening; current PD prescription is 5 exchanges over 14 hours alternating 1.5% and 2.5% PD solution, current EDW 86kg. We will obtain PD culture and cell count to rule out PD associated infection. No abdominal pain, PD fluid has been clear per patient. Potassium slightly elevated at 5.4, will add low potassium diet restrictions. Blood pressures are acce ptable on carvedilol. We will monitor hemoglobin trends, patient receives JOHNNA in outpatient setting. PT, OT consulted. Further orders forthcoming as hospitalization evolves, thank you for allowing us to participate in the care of Ms. Banegas. HPI Consult Data Date of Consult: 08/17/21 HPI Narrative HPI Narrative: Chalino BANEGAS, is a 81 F who was brought to emergency room late last evening for confusion and lethargy by her family. She was admitted for acute encephalopathy and UTI. Patient has past medical history significant for ESRD and is on peritoneal dialysis support. This morning patient is alert to name, place and time. She reports her last peritoneal dialysis was Friday night into morning. Patient reports abdomen is drained and is not currently carrying fluid. She denies any abdominal pain, reports as far she knows PD f luid has been clear. Denies any fevers. Patient does report she has been weak. Denies any falls. Reports appetite has been poor. [facility] Medical History Acute respiratory failure Asthma Bilateral carotid artery stenosis Chronic anemia Chronic diastolic CHF (congestive heart failure) ESRD on peritoneal dialysis Essential hypertension GERD (gastroesophageal reflux disease) Glaucoma Hyperlipidemia Hyperparathyroidism, secondary renal Hypothyroidism Lichenification and lichen simplex chronicus Major depressive disorder Neurodermatitis Non-proliferative diabetic retinopathy, both eyes Nonobstructive atherosclerosis of coronary artery Normocytic anemia Nummular eczema Obesity 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) Recurrent syncope (03/28/21) Stage 3 chronic kidney disease Stenosis of left carotid artery Torsades de pointes (03/28/21) Transient visual loss, right eye (11/2020) Type II diabetes mellitus Ventricular tachycardia Vitamin B 12 deficiency Home Medications atorvastatin 80 mg tablet 80 mg PO QHS 10/12/18 [History Last Taken Unknown] omeprazole 40 mg capsule,delayed release 40 mg PO DAILY 10/12/18 [History Last Taken Unknown] albuterol sulfate 90 mcg/actuation aerosol inhaler 2 puff INHALATION Q4H PRN g 10/13/18 [History Last Taken Unknown] calcitriol 0.25 mcg capsule 0.25 mcg PO .COMPLEX cap 10/26/19 [History Last Taken Unknown] latanoprost 0.005 % eye drops 1 drp OPHTHALMIC BID ml 10/26/19 [History Last Taken Unknown] montelukast 10 mg tablet 10 mg PO DAILY 10/26/19 [History Last Taken Unknown] Flovent HFA 1 puff INHALATION BID 03/28/21 [History Last Taken Unknown] insulin glargine [Lantus Solostar U-100 Insulin] 8 unit SUBCUT BID 03/28/21 [History Last Taken Unknown] pioglitazone 15 mg PO DAILY 03/28/21 [History Last Taken Unknown] diclofenac 1 % topical gel and kinesiology tape 1 ea TOPICAL DAILY PRN 04/13/21 [History Last Taken Unknown] lidocaine 4 % topical patch 1 patch TOPICAL DAILY PRN 04/13/21 [History Last Taken Unknown] polyethylene glycol 3350 17 gram oral powder packet 17 g PO DAILY 04/13/21 [History Last Taken Unknown] sennosides 8.6 mg tablet 8.6 mg PO BID 04/13/21 [History Last Taken Unknown] tiotropium bromide 2.5 mcg/actuation mist for inhalation 2 puff INHALATION QAM 04/13/21 [History Last Taken Unknown] acetaminophen 325 mg tablet 650 mg PO Q4H PRN tab 05/10/21 [History Last Taken Unknown] bisacodyl 10 mg rectal suppository 10 mg [place] DAILY PRN 05/10/21 [History Last Taken Unknown] buspirone 5 mg tablet 5 mg PO BID 05/10/21 [History Last Taken Unknown] cyanocobalamin (vitamin B-12) 2,500 mcg sublingual tablet 2,500 mcg SUBLINGUAL QWEEK tab 05/10/21 [History Last Taken Unknown] ergocalciferol (vitamin D2) 50,000 unit tablet 50,000 unit PO QWEEK tab 05/10/21 [History Last Taken Unknown] gentamicin 0.1 % topical cream 1 applic TOPICAL DAILY g 05/10/21 [History Last Taken Unknown] insulin lispro 100 unit/mL subcutaneous pen 1 sliding scale dose SUBCUT USEASDIRECTD 05/10/21 [History Last Taken Unknown] ipratropium 0.5 mg-albuterol 3 mg (2.5 mg base)/3 mL nebulization soln 3 ml INHALATION Q6H PRN 05/10/21 [History Last Taken Unknown] levothyroxine 137 mcg tablet 137 mcg PO DAILY tab 05/10/21 [History Last Taken Unknown] potassium chloride 20 mEq tablet,extended release 20 meq PO DAILY 05/10/21 [History Last Taken Unknown] carvedilol [Coreg] 3.125 mg PO BID 30 Days #60 tab 07/26/21 [Rx Last Taken Unknown] Allergy/AdvReac Type Severity Reaction Status Date / Time metformin [From Glucophage] Allergy Severe renal Verified 08/16/21 16:43 failure adhesive Allergy Intermediate blisters Verified 08/16/21 16:43 oxycodone Allergy Intermediate hallucinati Verified 08/16/21 16:43 ons tramadol Allergy Intermediate Vomiting Verified 08/16/21 16:43 ERIC Inhibitors AdvReac Intermediate cough Verified 08/16/21 16:43 Family History Father Heart disease Hypertension Suicide Mother Hypertension CVA (cerebral vascular accident) COPD (chronic obstructive pulmonary disease) CAD (coronary artery disease) Surgical History History of bilateral knee replacement (1989) History of breast biopsy History of implantable cardiac defibrillator (ICD) (04/02/21) History of left heart catheterization (03/28/21) History of open reduction and internal fixation (ORIF) procedure History of right cataract extraction (10/03/11) History of temporary cardiac pacemaker treatment (03/28/21) History of tonsillectomy Social History household members: none Smoking Status: Never smoker alcohol intake: never substance use type: does not use caffeine: Yes Type: coffee Number of servings: 2 ROS ROS Narrative As in HPI and past medical history Physical Exam Narrative Const: Alert and oriented x3 HEENT: Pupils equal round reactive to light, nation oral mucosa is moist neck is soft and supple Cardio: S1, S2, rhythm rate regular Respiratory: Lung sounds clear anteriorly and posteriorly GI: Abdomen soft, nontender, positive bowel sounds x4 quadrants. PD catheter i ntact with dressing clean, dry and intact Extremities: No edema Lab / Micro Data Result Diagrams: 08/17/21 05:04 08/17/21 05:04 Labs: Laboratory Results - last 24 hr 08/16/21 16:50: WBC 10.2, RBC 3.34 L, Hgb 11.1 L, Hct 35.2 L, MCV 105.4 H, MCH 33.2 H, MCHC 31.5 L, RDW Std Deviation 59.9 H, RDW Coeff of Alanna 15.7 H, Plt Count 279, MPV 10.4, Immature Gran % (Auto) 0.800, Neut % (Auto) 59.9, Lymph % (Auto) 30.2, [place] % (Auto) 7.7, Eos % (Auto) 1.0, Baso % (Auto) 0.4, Absolute Neuts (auto) 6.1, Absolute Lymphs (auto) 3.09, Nucleated RBC % 0.2 08/16/21 16:50: Sodium 136, Potassium 5.3 H, Chloride 98, Carbon Dioxide 29.0, Anion Gap 9, BUN 32 H, Creatinine 6.27 H, Estim Creat Clear Calc 5.49, Est GFR (MDRD) Af Amer 8 L, Est GFR (MDRD) Non-Af 7 L, BUN/Creatinine Ratio 5.1 L, Glucose 45 L, Calcium 9.0, Magnesium 1.5 L 08/16/21 18:52: Total Bilirubin 0.30, Direct Bilirubin 0.08, AST 36, ALT 19, Alkaline Phosphatase 129 H, Total Protein 6.0 L, Albumin 1.6 L, Globulin 4.4 H 08/16/21 18:58: Urine Color Yellow, Urine Clarity Turbid, Urine pH 7.0, Ur Specific Kincaid 1.015, Urine Protein 100 H, Urine Glucose (UA) Normal, Urine Ketones Negative, Urine Occult Blood 150 H, Urine Nitrite Negative, Urine Bilirubin Negative, Urine Urobilinogen Normal, Ur Leukocyte Esterase 500 H, Urine RBC 10-25 SEEN, Urine WBC >100 SEEN, Ur Squamous Epith Cells 5-10 SEEN, Urine Bacteria 4+, Urine Mucus 0 SEEN 08/16/21 19:00: Ammonia 29.0 08/16/21 19:54: POC Glucose 20 L* 08/16/21 19:55: POC Glucose < 10 L* 08/16/21 20:23: POC Glucose 149 H 08/16/21 22:12: POC Glucose 147 H 08/17/21 05:04: WBC 8.3, RBC 2.78 L, Hgb 9.3 L, Hct 29.2 L, MCV 105.0 H, MCH 33.5 H, MCHC 31.8 L, RDW Std Deviation 58.7 H, RDW Coeff of Alanna 15.4 H, Plt Count 223, MPV 9.9, Immature Gran % (Auto) 0.700, Neut % (Auto) 53.4, Lymph % (Auto) 35.2, Trego % (Auto) 8.4, Eos % (Auto) 1.8, Baso % (Auto) 0.5, Absolute Neuts (auto) 4.4, Absolute Lymphs (auto) 2.93, Nucleated RBC % 0 08/17/21 05:04: Sodium 133 L, Potassium 5.4 H, Chloride 100, Carbon Dioxide 26.0, Anion Gap 7, BUN 36 H, Creatinine 6.54 H, Estim Creat Clear Calc 5.26, Est GFR (MDRD) Af Amer 8 L, Est GFR (MDRD) Non-Af 7 L, BUN/Creatinine Ratio 5.5 L, Glucose 118 H, Calcium 8.0 L, Phosphorus 3.3, Magnesium 1.9, Total Bilirubin 0.30, AST 23, ALT 15, Alkaline Phosphatase 104, Total Protein 4.8 L, Albumin 1.3 L, Globulin 3.5, Albumin/Globulin Ratio 0.4 L 08/17/21 06:56: POC Glucose 89 ABG Data ABG results: ABG 08/16/21 19:48 Specimen Type ART Sample Site L Radial pH 7.40 Bicarbonate Actual 25.1 Total CO2 26 Base Excess 0 O2 Saturation 97 ABG pCO2 40.6 ABG pO2 89 Aquilino Test Positive O2 Delivery Device Room Air Radiology Impression Brain CT 08/16/21 17:23 IMPRESSION: There are no acute intracranial findings. Electronically Signed: Chao Yi MD at 18:31 EDT , Chest X-Ray 08/16/21 17:50 IMPRESSION: There are no acute findings. Electronically Signed: Chao Yi MD at 18:12 EDT ,
--- NOTE | 2021-08-17 11:04 | PN.HOSP_ITS ---
Subjective Subjective Patient seen and examined. She was admitted for lethargy and metabolic encephalopathy due to UTI. She is alert today and has no active complaints. She denies any fever, chills, nausea, vomiting or diarrhea. Review of systems is otherwise negative. Objective Data Objective Data Vital Signs: Vital Signs Temp Pulse Resp BP Pulse Ox 97.9 F 87 16 114/54 L 100 08/17/21 08:10 08/17/21 08:10 08/17/21 08:10 08/17/21 08:10 08/17/21 08:24 Oxygen Flow Rate (L/min) 2 Oxygen Delivery Method Room Air Weight: 183 lb 6.793 oz Body Mass Index (BMI) 34.6 Intake & Output: Intake and Output for Last 24 Hours 08/15/21 08/16/21 08/17/21 23:59 23:59 23:59 Intake Total 50 / 50 1692.33 / 1692.33 Output Total 0 / 0 Balance 50 / 50 1692.33 / 1692.33 Lab / Micro Data Result Diagrams: 08/17/21 05:04 08/17/21 05:04 Labs: Laboratory Results - last 24 hr 08/16/21 16:50: WBC 10.2, RBC 3.34 L, Hgb 11.1 L, Hct 35.2 L, MCV 105.4 H, MCH 33.2 H, MCHC 31.5 L, RDW Std Deviation 59.9 H, RDW Coeff of Alanna 15.7 H, Plt Count 279, MPV 10.4, Immature Gran % (Auto) 0.800, Neut % (Auto) 59.9, Lymph % (Auto) 30.2, [place] % (Auto) 7.7, Eos % (Auto) 1.0, Baso % (Auto) 0.4, Absolute Neuts (auto) 6.1, Absolute Lymphs (auto) 3.09, Nucleated RBC % 0.2 08/16/21 16:50: Sodium 136, Potassium 5.3 H, Chloride 98, Carbon Dioxide 29.0, Anion Gap 9, BUN 32 H, Creatinine 6.27 H, Estim Creat Clear Calc 5.49, Est GFR (MDRD) Af Amer 8 L, Est GFR (MDRD) Non-Af 7 L, BUN/Creatinine Ratio 5.1 L, Glucose 45 L, Calcium 9.0, Magnesium 1.5 L 08/16/21 18:52: Total Bilirubin 0.30, Direct Bilirubin 0.08, AST 36, ALT 19, Alkaline Phosphatase 129 H, Total Protein 6.0 L, Albumin 1.6 L, Globulin 4.4 H 08/16/21 18:58: Urine Color Yellow, Urine Clarity Turbid, Urine pH 7.0, Ur Specific [place] 1.015, Urine Protein 100 H, Urine Glucose (UA) Normal, Urine Ketones Negative, Urine Occult Blood 150 H, Urine Nitrite Negative, Urine Bilirubin Negative, Urine Urobilinogen Normal, Ur Leukocyte Esterase 500 H, Urine RBC 10-25 SEEN, Urine WBC >100 SEEN, Ur Squamous Epith Cells 5-10 SEEN, Urine Bacteria 4+, Urine Mucus 0 SEEN 08/16/21 19:00: Ammonia 29.0 08/16/21 19:54: POC Glucose 20 L* 08/16/21 19:55: POC Glucose < 10 L* 08/16/21 20:23: POC Glucose 149 H 08/16/21 22:12: POC Glucose 147 H 08/17/21 05:04: WBC 8.3, RBC 2.78 L, Hgb 9.3 L, Hct 29.2 L, MCV 105.0 H, MCH 33.5 H, MCHC 31.8 L, RDW Std Deviation 58.7 H, RDW Coeff of Alanna 15.4 H, Plt Count 223, MPV 9.9, Immature Gran % (Auto) 0.700, Neut % (Auto) 53.4, Lymph % (Auto) 35.2, [place] % (Auto) 8.4, Eos % (Auto) 1.8, Baso % (Auto) 0.5, Absolute Neuts (auto) 4.4, Absolute Lymphs (auto) 2.93, Nucleated RBC % 0 08/17/21 05:04: Sodium 133 L, Potassium 5.4 H, Chloride 100, Carbon Dioxide 26.0, Anion Gap 7, BUN 36 H, Creatinine 6.54 H, Estim Creat Clear Calc 5.26, Est GFR (MDRD) Af Amer 8 L, Est GFR (MDRD) Non-Af 7 L, BUN/Creatinine Ratio 5.5 L, Glucose 118 H, Calcium 8.0 L, Phosphorus 3.3, Magnesium 1.9, Total Bilirubin 0.30, AST 23, ALT 15, Alkaline Phosphatase 104, Total Protein 4.8 L, Albumin 1.3 L, Globulin 3.5, Albumin/Globulin Ratio 0.4 L 08/17/21 06:56: POC Glucose 89 ABG Data ABG results: ABG 08/16/21 19:48 Specimen Type ART Sample Site L Radial pH 7.40 Bicarbonate Actual 25.1 Total CO2 26 Base Excess 0 O2 Saturation 97 ABG pCO2 40.6 ABG pO2 89 [place] Test Positive O2 Delivery Device Room Air Radiography Diagnostic Testing: Radiology Impression Brain CT 08/16/21 17:23 IMPRESSION: There are no acute intracranial findings. Electronically Signed: Chao Yi MD at 18:31 EDT , Chest X-Ray 08/16/21 17:50 IMPRESSION: There are no acute findings. Electronically Signed: Chao Yi MD at 18:12 EDT , Physical Exam Const alert, oriented x3 and no apparent distress Orientation / Consciousness: lethargic Exam Limitations: no limitations HEENT head/scalp atraumatic and moist oral mucous membranes Head and Scalp: normocephalic Eyes PERRL, EOMs intact bilaterally and conjunctivae normal Neck no lymphadenopathy, supple and no JVD Resp normal respiratory effort, no retractions, no use of accessory muscles and clear to auscultation bilaterally Cardio regular rate, regular rhythm, S1 normal heart sound, S2 normal heart sound and no murmurs GI normal to inspection, nondistended, normoactive bowel sounds, soft to palpation, non-tender and non-distended Extremity normal to inspection, full ROM and no clubbing, cyanosis or edema Peripheral Pulses: Yes pulses 2+ throughout Skin no rashes or lesions noted Neuro oriented x3, CN's II-XII intact bilaterally and moves all extremities Sensorium / Orientation: awake and alert Psych affect normal Assessment & Plan Assessment/Plan (1) Complicated urinary tract infection: PLAN: #Acute metabolic encephalopathy due to UTI * on iV ceftriaxone. Will continue * blood and urine cultures pending. * will get peritoneal fluid cultures to see if there is an infection * #Hyperkalemia * potassiumw as 5.3. Likely due to hemolysis. * #Type 2 diabetes mellitus with hypoglycemia * oral meds on hold. * ISS. Accuchecks ACHS * #Hypomagnesemia: resolved #ESRD; on peritoneal dialysis. nephrology consulted. For dialysis today. #Hypothyroidism: on synthroid #CAD; on aspirin, statin and carvedilol #Hypertension: on Coreg, which is on hold due to hypotension. #Hyperlipidemia: on statin #Asthma: on breathing treatment with bronchodilators. Titrate oxygen to maintain sats >90% #GERD: on PPI DVT prophylaxis: heparin Charges/Coding Visit Charges Inpatient E&M: 48036 Subs Hosp L2
--- NOTE | 2021-08-17 11:12 | PCM.PN.BLA ---
Progress Note The patient is seen independently [id number]. I agree with assessment and plan as per nephrology nurse practitioner, Sunni Chowdhury NP. Encephalopathy has improved with treatment of UTI. We will continue CCPD while the patient is in the hospital for ESRD. We will continue to monitor volume status, hemodynamic status, and laboratory data as well.
--- NOTE | 2021-08-17 11:35 | CASEMGMT ---
Addendum entered by Rosa Hickman 08/17/21 15:44: BRENDA INFANTE in to pt room, pt states dtr just left. TC to pt dtr, she states they are just leaving the hospital. They came back up and met with BRENDA INFANTE in the lobby. They are requesting [facility]. States pt needs much encouragement and a male is preferred as pt feels safer with them. Pt has great fear of falling. Would like to work on steps and car trfs. TC to Radha at [facility], referral made and accepted. Made aware of request for male PT and to read order for goals. Original Note: BRENDA INFANTE Readmission Note Previous Admission:07/22/21-07/26/21 Diagnosis: weakness, dehydration, hypokalemia DC Disposition: Home with OP therapy at [facility] Current Admission Current Diagnosis: acute encephalopathy, UTI Pt presented to ER with lethargy. Pt lives alone and does peritoneal dialysis nightly. BRENDA INFANTE in to pt room. Pt is A&Ox3 during assessment. Pt states she did not go to outpt therapy once home. She states it just didn't get worked out. She states she is not doing as well as I could at home. States she cannot ambulate on own, uses walker. Pt dtr lives next door and is her DPOA, which is not on file at [facility]. Pt is aware of this. Pt reports that she has followed up with her PCP and has been taking her medications as ordered. Pt designates her dtr Yolanda Haas for her personal lines sales rep for dc planning. She is agreeable to calling her. TC to Yolanda. She states that they did not go to [facility] because pt is not strong enough to get in the car to go. Discussed HHC with SN and therapy with a goal of car transfers to facilitate getting to outpatient therapy as next step. She is agreeable to this. She states pt has had [facility] in the past but they did not push her enough. She asked for a list of [facility] provideres to be placed in pt room and she will review with patient when she comes in this afternoon. Discussed that pt has not yet worked with therapy so this would be pending therapy recommendations as well. Provided list to pt room, pt aware. DC PLAN: Home with [facility] with goal of outpt therapy pending inpatient therapy
[2021-08-17 12:01] LABS: Bedside Glucose 118 mg/dL (74-106)
[2021-08-17] MEDS: 0.9% Saline Lock 10 ML Syringe IV (16:50)
[2021-08-17] MEDS: Insulin Lispro 100 UNIT/ML INSULN.PEN SC ×2 (16:58→21:25)
[2021-08-17 17:15] LABS: Bedside Glucose 214 mg/dL (74-106)
--- NOTE | 2021-08-17 17:42 | DIALYSIS ---
CCPD initiated using aseptic technique. Using delflex 2 bags of 1.5% solution and 1 bag of 2.5%. No effluent drainage to evaluate upon initiation. Unable to draw culture or cell count at this time. Dressing was changed. No problems noted. Report was given to BRENDA Purcell. See tx sheet for more details.
--- NOTE | 2021-08-17 19:19 | PCM.RX.CS ---
Consult Pharmacy has been consulted to manage selected antiobiotic: Vancomycin Type of Consult: New start Suspected Infection: Bacteremia Labs: Sodium 133 mmol/L (136-145) L 08/17/21 05:04 Potassium 5.4 mmol/L (3.5-5.1) H 08/17/21 05:04 Chloride 100 mmol/L (98-107) 08/17/21 05:04 Carbon Dioxide 26.0 mmol/L (21.0-32.0) 08/17/21 05:04 Anion Gap 7 (5-15) 08/17/21 05:04 BUN 36 mg/dL (7-18) H 08/17/21 05:04 Creatinine 6.54 mg/dL (0.55-1.02) H 08/17/21 05:04 Est GFR (MDRD) Af Amer 8 mL/min (>60) L 08/17/21 05:04 Est GFR (MDRD) Non-Af 7 mL/min (>60) L 08/17/21 05:04 BUN/Creatinine Ratio 5.5 RATIO (10-20) L 08/17/21 05:04 Glucose 118 mg/dL (74-106) H 08/17/21 05:04 Microbiology: Microbiology 08/16/21 16:50 Blood Culture (Wb) - Anticubital Right Blood Culture - Preliminary Pharmacy Plan for Drug Dosing: NEW START IV VANCOMYCIN Consulting Physician: JARRETT Indication: BACTEREMIA Goal Trough: 15-20 MG/DL SrCr: 6.54 CrCl: 5.26 *PT ON PERITONEAL DIALYSIS* Comments: LOADING DOSE OF 2000MG GIVEN 08/17 @ 1650 Vancomycin Dose: PATIENT IS ON PERITONEAL DIALYSIS. LOADING DOSE OF 2000MG GIVEN. WILL DOSE BASED ON LEVELS. ORDER A RANDOM LEVEL PER POLICY. Pending Level: 08/19/21 @ 0600 - RANDOM LEVEL WITH AM LABS Pharmacy Service will continue to monitor and adjust dosing as required.
[2021-08-17] MEDS: Ceftriaxone 1 GM/50 ML BAG IV (21:22)
[2021-08-17] MEDS: Atorvastatin Calcium 80 MG Tablet PO (21:28)
[2021-08-17 22:06] LABS: Bedside Glucose 202 mg/dL (74-106)
[2021-08-18] VITALS (7 sets, daily range): BP systolic 100–128; BP diastolic 42–62; PULSE 80–104; RESP 16–20; TEMP 36.6–36.9; O2SAT 94–98
[2021-08-18] MEDS: Insulin Lispro 100 UNIT/ML INSULN.PEN SC ×3 (06:44→21:13)
[2021-08-18] MEDS: Levothyroxine 137 MCG Tablet 205.5 MCG PO (06:46)
[2021-08-18 06:50] LABS: Bedside Glucose 186 mg/dL (74-106)
[2021-08-18] MEDS: Ipratropium 0.5 MG/2.5 ML SOLUTION INHALATION ×2 (07:29→19:23)
[2021-08-18] MEDS: Budesonide Respules 0.5 MG/2 ML AMPUL.NEB. INHALATION ×2 (07:29→19:23)
[2021-08-18 07:38] LABS: Absolute Lymphocyte Count 2.72 X10^3/uL (0.83-4.51); Absolute Neutrophil Count 3.1 X10^3/uL (2.0-7.7); Basophil# 0.04 X10^3/uL; Basophil% 0.6 % (0-1); Eosinophil# 0.21 X10^3/uL; Eosinophils% 3.2 % (0-5); Hematocrit 27.8 % (37-47); Hemoglobin 8.7 g/dL (12.0-15.0); Lymphocyte # 2.72 X10^3/ul (0.83-4.51); Mean Corp Hgb Conc 31.3 g/dL (32-36); Mean Corpuscular Hgb 32.8 pg (27.0-32.0); Mean Corpuscular Volume 104.9 fL (81-99); Mean Platelet Vol. 9.9 fl (6.2-12.0); Monocyte# 0.51 X10^3/uL; Monocyte% 7.7 % (0-10); NRBC Flagged by Analyzer 0 % (0-5); Neutrophil # 3.11 X10^3/uL (2.7-7.7); Neutrophil % 46.7 % (47-70); Platelet Count 209 K/mm3 (150-450); RBC Distribution Width CV 15.8 % (11.6-14.6); RBC Distribution Width SD 60.6 fl (35.1-43.9); Red Blood Count 2.65 M/mm3 (4.2-5.4); White Blood Count 6.6 K/mm3 (4.4-11.0)
[2021-08-18 08:03] LABS: Anion Gap 9 (5-15); BUN 36 mg/dL (7-18); BUN/Creat Ratio 5.8 RATIO (10-20); Calcium,Total 8.1 mg/dL (8.5-10.1); Chloride 99 mmol/L (98-107); Creatinine, Serum 6.16 mg/dL (0.55-1.02); EST Glomerular Filtration Rate 7 mL/min (>60); Est Glom Filt Rate - Afr Amer 8 mL/min (>60); Estimated Creatinine Clearance 5.59 ml/min; Glucose 182 mg/dL (74-106); Potassium 4.6 mmol/L (3.5-5.1); Sodium Level 133 mmol/L (136-145)
--- NOTE | 2021-08-18 08:07 | DIALYSIS ---
Taken off CCPD cell count and culture obtain from effluent bag. UF -362ml. BP 90/35 PD cap on secure and line clamped. Pt tearful and c/o of anxiety- report to Jazzy GUTIERREZ
[2021-08-18 08:42] LABS: Body Fluid Mononuclear WBC # 0.002 10^3/uL
[2021-08-18] MEDS: busPIRone 5 MG Tablet PO ×2 (09:14→21:12)
[2021-08-18] MEDS: Latanoprost 0.005% 1 Bottle 1 DRP OPHTHALMIC ×2 (09:14→21:13)
[2021-08-18] MEDS: Montelukast 10 MG Tablet PO (09:14)
[2021-08-18] MEDS: Aspirin 81 MG TAB.CHEW PO (09:14)
[2021-08-18] MEDS: Pantoprazole Sodium 40 MG Tablet PO (09:15)
[2021-08-18] MEDS: Heparin Injection (Vial) 5,000 UNIT/ML VIAL 5000 UNIT SC ×2 (09:15→21:13)
[2021-08-18] MEDS: Carvedilol 3.125 MG TABLET PO (09:20)
--- NOTE | 2021-08-18 10:14 | PN.HOSP_ITS ---
Subjective Subjective Patient seen and examined. She complained of feeling very anxious. She otherwise had no other complaints. Review of systems is otherwise negative. Objective Data Objective Data Vital Signs: Vital Signs Temp Pulse Resp BP Pulse Ox 97.9 F 92 16 128/56 H 95 08/18/21 09:15 08/18/21 09:15 08/18/21 09:15 08/18/21 09:15 08/18/21 09:15 Oxygen Flow Rate (L/min) 2 Oxygen Delivery Method Room Air Weight: 196 lb 3.382 oz Body Mass Index (BMI) 34.6 Intake & Output: Intake and Output for Last 24 Hours 08/16/21 08/17/21 08/18/21 23:59 23:59 23:59 Intake Total 50 / 50 2982.33 / 2982.33 100 / 100 Output Total 0 / 0 Balance 50 / 50 2982.33 / 2982.33 100 / 100 Lab / Micro Data Result Diagrams: 08/18/21 07:08 08/18/21 07:08 Labs: Laboratory Results - last 24 hr 08/17/21 11:43: POC Glucose 118 H 08/17/21 16:54: POC Glucose 214 H 08/17/21 21:21: POC Glucose 202 H 08/18/21 06:43: POC Glucose 186 H 08/18/21 07:08: Sodium 133 L, Potassium 4.6, Chloride 99, Carbon Dioxide 25.0, Anion Gap 9, BUN 36 H, Creatinine 6.16 H, Estim Creat Clear Calc 5.59, Est GFR (MDRD) Af Amer 8 L, Est GFR (MDRD) Non-Af 7 L, BUN/Creatinine Ratio 5.8 L, Glucose 182 H, Calcium 8.1 L 08/18/21 07:08: WBC 6.6, RBC 2.65 L, Hgb 8.7 L, Hct 27.8 L, MCV 104.9 H, MCH 32.8 H, MCHC 31.3 L, RDW Std Deviation 60.6 H, RDW Coeff of Alanna 15.8 H, Plt Count 209, MPV 9.9, Immature Gran % (Auto) 0.800, Neut % (Auto) 46.7 L, Lymph % (Auto) 41.0, [place] % (Auto) 7.7, Eos % (Auto) 3.2, Baso % (Auto) 0.6, Absolute Neuts (auto) 3.1, Absolute Lymphs (auto) 2.72, Nucleated RBC % 0 08/18/21 07:45: Fld Polynuclear WBCs # 0.000, Fld Polynuclear WBCs % 0.0, Fluid Mononuclear WBCs 0.002, Fld Mononuclear WBCs % 100.0 Micro: Microbiology 08/16/21 16:50 Blood Culture (Wb) - Anticubital Right Blood Culture - Preliminary Coag Negative Staph Physical Exam Const alert, oriented x3 and no apparent distress Exam Limitations: no limitations HEENT head/scalp atraumatic and moist oral mucous membranes Head and Scalp: normocephalic Eyes PERRL, EOMs intact bilaterally and conjunctivae normal Neck no lymphadenopathy, supple and no JVD Resp normal respiratory effort, no retractions, no use of accessory muscles and clear to auscultation bilaterally Cardio regular rate, regular rhythm, S1 normal heart sound, S2 normal heart sound and no murmurs GI normal to inspection, nondistended, normoactive bowel sounds, soft to palpation, non-tender and non-distended Extremity normal to inspection, full ROM and no clubbing, cyanosis or edema Peripheral Pulses: Yes pulses 2+ throughout Skin no rashes or lesions noted Neuro oriented x3, CN's II-XII intact bilaterally and moves all extremities Sensorium / Orientation: awake and alert Psych affect normal Assessment & Plan Assessment/Plan (1) Complicated urinary tract infection: PLAN: #Acute metabolic encephalopathy due to UTI * on iV ceftriaxone. Will continue * blood cultures growing Gram positive cocci; started on IV vancomycin whilst speciation is pending * blood and urine cultures pending. * peritoneal fluid analysis and cultures pending * will get 2D echo due to blood cultures growin gram positive cocci in clusters, presumed to be Staph * get ID consult; to see Moninay * #Hyperkalemia * resolved * #Type 2 diabetes mellitus with hypoglycemia * oral meds on hold. * ISS. Accuchecks ACHS * #Hypomagnesemia: resolved #ESRD; on peritoneal dialysis. nephrology consulted. For dialysis today. #Hypothyroidism: on synthroid #CAD; on aspirin, statin and carvedilol #Hypertension: on Coreg, which is on hold due to hypotension. #Hyperlipidemia: on statin #Asthma: on breathing treatment with bronchodilators. Titrate oxygen to maintain sats >90% #GERD: on PPI DVT prophylaxis: heparin Charges/Coding Visit Charges Inpatient E&M: 50619 Subs Hosp L3
--- NOTE | 2021-08-18 10:27 | ECHOCS_ITS ---
Reason For Study: Emboli Procedure This was a 2D Doppler, Color Flow transthoracic echocardiogram. The study was technically difficult. Contrast injection was performed. Exam performed portable in patient room. Left Ventricle The estimated ejection fraction is 65 %. No evidence for diastolic dysfunction. No regional wall motion abnormalities noted. Right Ventricle Normal RV size. There is a pacemaker lead in the right ventricle. Normal systolic function. Atria Normal left atrium. Normal right atrium. ICD or pacer leads identified within the right atrium. No doppler evidence for ASD. Mitral Valve There is no mitral valve stenosis. No mitral valve insufficiency. Tricuspid Valve There is no tricuspid stenosis. Unable to estimate RV systolic pressure due to inadequate jet, pulmonary artery pressure probably normal. Aortic Valve Trisinus/trileaflet aortic valve. There is no aortic stenosis. No aortic valve insufficiency. Pulmonic Valve There is no pulmonic valvular stenosis. No pulmonic valve insufficiency. Great Vessels Normal aortic root. Pericardium/Pleural No pericardial effusion. Medication Diluted definity 2ml given slow IV push to enhance endocardial definition. MMode/2D Measurements & Calculations LVIDd: 4.2 cm IVSd: 1.5 cm LA dimension: 3.5 cm LVIDs: 2.4 cm LVPWd: 1.5 cm FS: 43.7 % LAV(MOD-sp4): 60.5 ml LA A4 area: 20.1 cm2 RA A4 area: 14.3 cm2 Time Measurements MV dec time: 0.29 sec Doppler Measurements & Calculations MV E max bobby: 74.0 cm/sec Lat Peak E' Bobby: 7.0 cm/sec Med Peak E' Bobby: 5.7 cm/sec MV A max bobby: 110.2 cm/sec E/E' lat: 10.6 E/E' med: 12.9 MV E/A: 0.67 MV V2 max: 100.3 cm/sec MV P1/2t max bobby: 74.4 cm/sec Ao V2 max: 145.7 cm/sec MV max P.0 mmHg MV P1/2t: 64.6 msec Ao max P.5 mmHg MV V2 mean: 47.9 cm/sec MV dec slope: 337.2 cm/sec2 MV mean P.1 mmHg MV V2 VTI: 20.3 cm MVA(P1/2t): 3.4 cm2 LV V1 max: 105.5 cm/sec PA V2 max: 105.9 cm/sec TR max bobby: 244.1 cm/sec LV V1 max P.5 mmHg TR max P.8 mmHg ECHO/Echo Complete W/ Contrast Interpretation Summary The estimated ejection fraction is 65 %. No evidence for diastolic dysfunction. Ordering Physician: Briseida Saldana Referring Physician: Satnam Saldana Performed By: Onel Dennis RCS
[2021-08-18 10:31] LABS: Auto B Fluid Analyzer BKGD Ct COUNTS W/IN LIMITS (W/IN LIMITS); Color/Body Fluid COLORLESS; Source- Body Fluid PERITONEAL FLUID
[2021-08-18 10:32] LABS: Appearance/Body Fluid CLEAR; Red Cell Count/Body Fluid 1 /mm3; White Blood Count/Body Fluid 1 /mm3
[2021-08-18 10:33] LABS: Other Cell Type/BF 1 %
[2021-08-18 10:38] LABS: Body Fluid QC Type(s) BF1Q
[2021-08-18 11:46] LABS: Bedside Glucose 143 mg/dL (74-106)
[2021-08-18 16:25] LABS: Bedside Glucose 161 mg/dL (74-106)
--- NOTE | 2021-08-18 17:05 | DIALYSIS ---
CCPD started using previous orders 2 bags 1.5% and 1 bag 2.5% - 1,5% on heater tray as ordered. Draining and filling without problems clear effluent fluid no fibrin noted-abd dsg changed no signs of infection- BP 99/34 report to Jazzy GUTIERREZ
[2021-08-18] MEDS: Atorvastatin Calcium 80 MG Tablet PO (21:12)
[2021-08-18] MEDS: 0.9% Saline Lock 10 ML Syringe IV (21:12)
[2021-08-18] MEDS: Ceftriaxone 1 GM/50 ML BAG IV (21:12)
[2021-08-18 21:31] LABS: Bedside Glucose 225 mg/dL (74-106)
[2021-08-19] VITALS (7 sets, daily range): BP systolic 94–142; BP diastolic 41–109; PULSE 51–99; RESP 16–24; TEMP 36.4–36.8; O2SAT 91–97
[2021-08-19] MEDS: Heparin Injection (Vial) 5,000 UNIT/ML VIAL 5000 UNIT SC ×2 (05:42→22:05)
[2021-08-19] MEDS: Latanoprost 0.005% 1 Bottle 1 DRP OPHTHALMIC ×2 (05:42→22:05)
[2021-08-19] MEDS: Levothyroxine 137 MCG Tablet 205.5 MCG PO (05:42)
[2021-08-19] MEDS: Montelukast 10 MG Tablet PO (05:43)
[2021-08-19] MEDS: Aspirin 81 MG TAB.CHEW PO (05:43)
[2021-08-19] MEDS: busPIRone 5 MG Tablet PO ×2 (05:43→22:05)
[2021-08-19] MEDS: Pantoprazole Sodium 40 MG Tablet PO (05:46)
[2021-08-19] MEDS: Insulin Lispro 100 UNIT/ML INSULN.PEN SC ×2 (05:54→22:05)
[2021-08-19 06:00] LABS: Bedside Glucose 227 mg/dL (74-106)
[2021-08-19] MEDS: Ipratropium 0.5 MG/2.5 ML SOLUTION INHALATION ×3 (06:46→18:50)
[2021-08-19] MEDS: Budesonide Respules 0.5 MG/2 ML AMPUL.NEB. INHALATION ×2 (06:46→18:50)
--- NOTE | 2021-08-19 07:12 | PN.HOSP_ITS ---
Subjective Subjective Patient seen and examined. She felt better today and had no active complaints. She had an uneventful night, and review of systems was otherwise negative. Blood cultures came back positive for coagulase negative staph in 1/2 samples. Urine culture positive for Klebsiella. Objective Data Objective Data Vital Signs: Vital Signs Temp Pulse Resp BP Pulse Ox 97.7 F L 84 24 H 94/41 L 91 08/19/21 03:32 08/19/21 06:46 08/19/21 06:46 08/19/21 03:32 08/19/21 06:46 Oxygen Flow Rate (L/min) 2 Oxygen Delivery Method Room Air Weight: 167 lb 15.876 oz Body Mass Index (BMI) 34.6 Intake & Output: Intake and Output for Last 24 Hours 08/17/21 08/18/21 08/19/21 23:59 23:59 23:59 Intake Total 2982.33 / 2982.33 850 / 850 300 / 300 Output Total 0 / 0 362 / 362 0 / 0 Balance 2982.33 / 2982.33 488 / 488 300 / 300 Lab / Micro Data Result Diagrams: 08/18/21 07:08 08/18/21 07:08 Labs: Laboratory Results - last 24 hr 08/18/21 07:08: Sodium 133 L, Potassium 4.6, Chloride 99, Carbon Dioxide 25.0, Anion Gap 9, BUN 36 H, Creatinine 6.16 H, Estim Creat Clear Calc 5.59, Est GFR (MDRD) Af Amer 8 L, Est GFR (MDRD) Non-Af 7 L, BUN/Creatinine Ratio 5.8 L, Glucose 182 H, Calcium 8.1 L 08/18/21 07:08: WBC 6.6, RBC 2.65 L, Hgb 8.7 L, Hct 27.8 L, MCV 104.9 H, MCH 32.8 H, MCHC 31.3 L, RDW Std Deviation 60.6 H, RDW Coeff of Alanna 15.8 H, Plt Count 209, MPV 9.9, Immature Gran % (Auto) 0.800, Neut % (Auto) 46.7 L, Lymph % (Auto) 41.0, [place] % (Auto) 7.7, Eos % (Auto) 3.2, Baso % (Auto) 0.6, Absolute Neuts (auto) 3.1, Absolute Lymphs (auto) 2.72, Nucleated RBC % 0 08/18/21 07:45: Fluid Source PERITONEAL FLUID, Fluid Color COLORLESS, Fluid Appearance CLEAR, Fluid WBC 1, Fluid RBC 1, Fluid Tot Cell Count Not Reportable, Fld Polynuclear WBCs # 0.000, Fld Polynuclear WBCs % 0.0, Fluid Mononuclear WBCs 0.002, Fld Mononuclear WBCs % 100.0, Fluid Other Cells 1, Fl Pathologist Comment May follow, Fluid Comment 2 Not Reportable 08/18/21 11:39: POC Glucose 143 H 08/18/21 16:14: POC Glucose 161 H 08/18/21 21:10: POC Glucose 225 H 08/19/21 05:53: POC Glucose 227 H Micro: Microbiology 08/16/21 16:50 Blood Culture (Wb) - Anticubital Right Blood Culture - Preliminary Coag Negative Staph 08/16/21 19:30 Blood Culture (Wb) - Anticubital Left Blood Culture - Preliminary No growth in 48 hours. 08/16/21 Unknown Urine, Catheterized Urine Culture - Final Klebsiella pneumoniae sp pneum 08/18/21 07:45 Fluid - Peritoneal Gram Stain - Final Radiography Diagnostic Testing: Radiology Impression Echocardiogram 08/18/21 10:27 Interpretation Summary The estimated ejection fraction is 65 %. No evidence for diastolic dysfunction. Ordering Physician: Briseida Saldana Referring Physician: Satnam Saldana Performed By: Onel Dennis RCS Physical Exam Const alert, oriented x3 and no apparent distress Exam Limitations: no limitations HEENT head/scalp atraumatic and moist oral mucous membranes Head and Scalp: normocephalic Eyes PERRL, EOMs intact bilaterally and conjunctivae normal Neck no lymphadenopathy, supple and no JVD Resp normal respiratory effort, no retractions, no use of accessory muscles and clear to auscultation bilaterally Cardio regular rate, regular rhythm, S1 normal heart sound, S2 normal heart sound and no murmurs GI normal to inspection, nondistended, normoactive bowel sounds, soft to palpation, non-tender and non-distended GI Narrative: peritoneal dialysis catheter in place Extremity normal to inspection, full ROM and no clubbing, cyanosis or edema Peripheral Pulses: Yes pulses 2+ throughout Skin no rashes or lesions noted Neuro oriented x3, CN's II-XII intact bilaterally and moves all extremities Sensorium / Orientation: awake and alert Psych affect normal Assessment & Plan Assessment/Plan (1) Complicated urinary tract infection: PLAN: #Acute metabolic encephalopathy due to UTI * on iV ceftriaxone. * blood cultures growing Gram positive cocci which turned out to be coagulase negative Staph, likely a contaminant, in 1/2 samples * peritoneal fluid culture also growing rare gram positive cocci; will keep on vancomycin until the speciation of that is also complete * urine culture growing Klebsiella * on IV vancomycin and ceftriaoxne * will not do the 2D echo as blood cultures growing coagulase negative Staph. * #Hyperkalemia * resolved * #Type 2 diabetes mellitus with hypoglycemia * oral meds on hold. * ISS. Accuchecks ACHS * #Hypomagnesemia: resolved #ESRD; on peritoneal dialysis. nephrology on board. #Hypothyroidism: on synthroid #CAD; on aspirin, statin and carvedilol #Hypertension: on Coreg, which is on hold due to hypotension. #Hyperlipidemia: on statin #Asthma: on breathing treatment with bronchodilators. Titrate oxygen to maintain sats >90% #GERD: on PPI DVT prophylaxis: heparin Charges/Coding Visit Charges Inpatient E&M: 12103 Subs Hosp L2
--- NOTE | 2021-08-19 08:51 | DIALYSIS ---
CCPD complete and taken off the cycler. UF-351ml clear yellow effulent fluid no fibrin noted. BP 114/57 Report to Marcie GUTIERREZ
[2021-08-19 11:31] LABS: Bedside Glucose 142 mg/dL (74-106)
[2021-08-19 11:41] LABS: Anion Gap 7 (5-15); BUN 34 mg/dL (7-18); BUN/Creat Ratio 5.5 RATIO (10-20); Calcium,Total 8.2 mg/dL (8.5-10.1); Chloride 99 mmol/L (98-107); Creatinine, Serum 6.19 mg/dL (0.55-1.02); EST Glomerular Filtration Rate 7 mL/min (>60); Est Glom Filt Rate - Afr Amer 8 mL/min (>60); Estimated Creatinine Clearance 5.56 ml/min; Glucose 176 mg/dL (74-106); Potassium 4.5 mmol/L (3.5-5.1); Sodium Level 134 mmol/L (136-145)
--- NOTE | 2021-08-19 12:36 | PCM.RX.CS ---
Consult Pharmacy has been consulted to manage selected antiobiotic: Vancomycin Type of Consult: Follow-up Prior Doses of Antibiotics Received/Current Regimen: received vanc 2000mg IV x1 on 08/17/21 at 16:50 Labs: Sodium 134 mmol/L (136-145) L 08/19/21 08:55 Potassium 4.5 mmol/L (3.5-5.1) 08/19/21 08:55 Chloride 99 mmol/L (98-107) 08/19/21 08:55 Carbon Dioxide 28.0 mmol/L (21.0-32.0) 08/19/21 08:55 Anion Gap 7 (5-15) 08/19/21 08:55 BUN 34 mg/dL (7-18) H 08/19/21 08:55 Creatinine 6.19 mg/dL (0.55-1.02) H 08/19/21 08:55 Est GFR (MDRD) Af Amer 8 mL/min (>60) L 08/19/21 08:55 Est GFR (MDRD) Non-Af 7 mL/min (>60) L 08/19/21 08:55 BUN/Creatinine Ratio 5.5 RATIO (10-20) L 08/19/21 08:55 Glucose 176 mg/dL (74-106) H 08/19/21 08:55 Random Vancomycin 25.0 ug/mL (0.0-15.0) H 08/19/21 08:55 Microbiology: Microbiology 08/18/21 07:45 Fluid - Peritoneal Gram Stain - Final 08/18/21 07:45 Fluid - Peritoneal Body Fluid Culture - Preliminary No growth-Final to follow 08/16/21 16:50 Blood Culture (Wb) - Anticubital Right Blood Culture - Preliminary Coag Negative Staph 08/16/21 19:30 Blood Culture (Wb) - Anticubital Left Blood Culture - Preliminary No growth in 48 hours. 08/16/21 Unknown Urine, Catheterized Urine Culture - Final Klebsiella pneumoniae sp pneum Weight used for dosin.2 kg Estimated Creatinine Clearance: 5.6ml/min Goal Trough: 15-20 mcg/mL Pharmacy Plan for Drug Dosing: THE VANC RANDOM LEVEL DRAWN AT 08:55 TODAY WAS 25.0. THIS IS ABOVE 20 SO NO DOSE WILL BE ORDERED TODAY. PATIENT IS ON PERITONEAL DIALYSIS. WILL CONTINUE TO DOSE BASED ON LEVELS. WILL ORDER A RANDOM LEVEL AGAIN FOR TOMORROW WITH AM LABS. Pharmacy Service will continue to monitor and adjust dosing as required. Follow-Up Labs: Trough Vancomycin - RANDOM Labs to be done on [date and time ordered]: 08/20/21 0600
[2021-08-19 14:12] LABS: Absolute Lymphocyte Count 2.57 X10^3/uL (0.83-4.51); Absolute Neutrophil Count 4.1 X10^3/uL (2.0-7.7); Basophil# 0.04 X10^3/uL; Basophil% 0.5 % (0-1); Eosinophils% 2.6 % (0-5); Hematocrit 28.8 % (37-47); Hemoglobin 9.4 g/dL (12.0-15.0); Lymphocyte # 2.57 X10^3/ul (0.83-4.51); Lymphocyte % 33.9 % (19-41); Mean Corp Hgb Conc 32.6 g/dL (32-36); Mean Corpuscular Hgb 33.2 pg (27.0-32.0); Mean Corpuscular Volume 101.8 fL (81-99); Mean Platelet Vol. 9.8 fl (6.2-12.0); Monocyte# 0.65 X10^3/uL; Monocyte% 8.6 % (0-10); NRBC Flagged by Analyzer 0 % (0-5); Neutrophil # 4.05 X10^3/uL (2.7-7.7); Neutrophil % 53.3 % (47-70); Platelet Count 210 K/mm3 (150-450); RBC Distribution Width CV 15.7 % (11.6-14.6); RBC Distribution Width SD 58.3 fl (35.1-43.9); Red Blood Count 2.83 M/mm3 (4.2-5.4); White Blood Count 7.6 K/mm3 (4.4-11.0)
[2021-08-19 16:15] LABS: Bedside Glucose 143 mg/dL (74-106)
--- NOTE | 2021-08-19 18:48 | PCM.PN.REN ---
Subjective Subjective Following for ESRD and CCPD management. The patient denies chest pain, shortness of breath, or nausea. Peritoneal dialysis has been progressing well. Objective Data Objective Data Vital Signs: Vital Signs Temp Pulse Resp BP Pulse Ox 98 F 51 L 16 110/71 97 08/19/21 14:23 08/19/21 14:23 08/19/21 14:23 08/19/21 14:23 08/19/21 14:23 Oxygen Flow Rate (L/min) 2 Oxygen Delivery Method Room Air Weight: 76.2 kg Body Mass Index (BMI) 34.6 Intake & Output: Intake and Output for Last 24 Hours 08/17/21 08/18/21 08/19/21 23:59 23:59 23:59 Intake Total 2982.33 / 2982.33 850 / 850 950 / 950 Output Total 0 / 0 362 / 362 351 / 351 Balance 2982.33 / 2982.33 488 / 488 599 / 599 Lab / Micro Data Result Diagrams: 08/19/21 08:55 08/19/21 08:55 Labs: Laboratory Results - last 24 hr 08/18/21 21:10: POC Glucose 225 H 08/19/21 05:53: POC Glucose 227 H 08/19/21 08:55: WBC 7.6, RBC 2.83 L, Hgb 9.4 L, Hct 28.8 L, MCV 101.8 H, MCH 33.2 H, MCHC 32.6, RDW Std Deviation 58.3 H, RDW Coeff of Alanna 15.7 H, Plt Count 210, MPV 9.8, Immature Gran % (Auto) 1.100 H, Neut % (Auto) 53.3, Lymph % (Auto) 33.9, [place] % (Auto) 8.6, Eos % (Auto) 2.6, Baso % (Auto) 0.5, Absolute Neuts (auto) 4.1, Absolute Lymphs (auto) 2.57, Nucleated RBC % 0 08/19/21 08:55: Random Vancomycin 25.0 H 08/19/21 08:55: Sodium 134 L, Potassium 4.5, Chloride 99, Carbon Dioxide 28.0, Anion Gap 7, BUN 34 H, Creatinine 6.19 H, Estim Creat Clear Calc 5.56, Est GFR (MDRD) Af Amer 8 L, Est GFR (MDRD) Non-Af 7 L, BUN/Creatinine Ratio 5.5 L, Glucose 176 H, Calcium 8.2 L 08/19/21 11:00: POC Glucose 142 H 08/19/21 16:12: POC Glucose 143 H Micro: Microbiology 08/18/21 07:45 Fluid - Peritoneal Gram Stain - Final 08/18/21 07:45 Fluid - Peritoneal Body Fluid Culture - Preliminary No growth-Final to follow 08/16/21 16:50 Blood Culture (Wb) - Anticubital Right Blood Culture - Preliminary Coag Negative Staph 08/16/21 19:30 Blood Culture (Wb) - Anticubital Left Blood Culture - Preliminary No growth in 48 hours. 08/16/21 Unknown Urine, Catheterized Urine Culture - Final Klebsiella pneumoniae sp pneum Physical Exam Narrative Const: Alert and oriented x3 HEENT: Pupils equal round reactive to light, nation oral mucosa is moist neck is soft and supple Cardio: S1, S2, rhythm rate regular Respiratory: Lung sounds clear anteriorly and posteriorly GI: Abdomen soft, nontender, positive bowel sounds x4 quadrants. PD catheter intact with dressing clean, dry and intact Extremities: No edema Assessment & Plan Assessment/Plan (1) ESRD on peritoneal dialysis: (2) Complicated urinary tract infection: (3) Encephalopathy: (4) Hyperkalemia: PLAN: Plan: Continue current CCPD treatment. Labs were reviewed. Potassium has improved with CCPD. The patient is hemodynamically stable. Doubt the patient has PD catheter related peritonitis. Peritoneal fluid sample from 08/18/2021 did not show any significant WBCs, and the patient has not had any abdominal pain prior to or during this admission. Suspect gram-positive cocci from PD fluid sample is a contaminant. Continue treatment of UTI as per hospital medicine service.
[2021-08-19] MEDS: Ceftriaxone 1 GM/50 ML BAG IV (22:04)
[2021-08-19] MEDS: Atorvastatin Calcium 80 MG Tablet PO (22:05)
[2021-08-19] MEDS: 0.9% Saline Lock 10 ML Syringe IV (22:08)
[2021-08-19 22:36] LABS: Bedside Glucose 220 mg/dL (74-106)
[2021-08-20] VITALS (10 sets, daily range): BP systolic 92–127; BP diastolic 35–56; PULSE 88–97; RESP 16–20; TEMP 36.6–37; O2SAT 94–99
[2021-08-20 06:28] LABS: Absolute Lymphocyte Count 2.46 X10^3/uL (0.83-4.51); Basophil# 0.03 X10^3/uL; Basophil% 0.4 % (0-1); Eosinophils% 2.7 % (0-5); Hematocrit 27.2 % (37-47); Hemoglobin 8.7 g/dL (12.0-15.0); Lymphocyte # 2.46 X10^3/ul (0.83-4.51); Lymphocyte % 33.2 % (19-41); Mean Corpuscular Hgb 33.1 pg (27.0-32.0); Mean Corpuscular Volume 103.4 fL (81-99); Mean Platelet Vol. 9.9 fl (6.2-12.0); Monocyte# 0.64 X10^3/uL; Monocyte% 8.6 % (0-10); NRBC Flagged by Analyzer 0 % (0-5); Neutrophil # 4.01 X10^3/uL (2.7-7.7); Neutrophil % 54.2 % (47-70); Platelet Count 209 K/mm3 (150-450); RBC Distribution Width CV 15.7 % (11.6-14.6); RBC Distribution Width SD 59.2 fl (35.1-43.9); Red Blood Count 2.63 M/mm3 (4.2-5.4); White Blood Count 7.4 K/mm3 (4.4-11.0)
[2021-08-20] MEDS: Insulin Lispro 100 UNIT/ML INSULN.PEN SC ×2 (06:45→22:53)
[2021-08-20] MEDS: Levothyroxine 137 MCG Tablet PO (06:45)
[2021-08-20] MEDS: Ipratropium 0.5 MG/2.5 ML SOLUTION INHALATION ×3 (06:48→19:39)
[2021-08-20] MEDS: Budesonide Respules 0.5 MG/2 ML AMPUL.NEB. INHALATION ×2 (06:48→19:39)
[2021-08-20 06:51] LABS: Anion Gap 9 (5-15); BUN 34 mg/dL (7-18); BUN/Creat Ratio 5.6 RATIO (10-20); Calcium,Total 7.9 mg/dL (8.5-10.1); Chloride 96 mmol/L (98-107); Creatinine, Serum 6.06 mg/dL (0.55-1.02); EST Glomerular Filtration Rate 7 mL/min (>60); Est Glom Filt Rate - Afr Amer 9 mL/min (>60); Estimated Creatinine Clearance 5.68 ml/min; Glucose 220 mg/dL (74-106); Potassium 4.2 mmol/L (3.5-5.1); Sodium Level 131 mmol/L (136-145)
[2021-08-20 07:01] LABS: Bedside Glucose 222 mg/dL (74-106)
--- NOTE | 2021-08-20 08:36 | DIALYSIS ---
CCPD completed. pt stable. Net UF 489ml. Effluent clear, pale yellow. no fibrin noted. report to Miriam GUTIERREZ.
[2021-08-20] MEDS: Aspirin 81 MG TAB.CHEW PO (09:52)
[2021-08-20] MEDS: Montelukast 10 MG Tablet PO (09:53)
[2021-08-20] MEDS: Senna Tablet 1 TABLET PO ×2 (09:53→22:53)
[2021-08-20] MEDS: Calcitriol 0.25 MCG Capsule PO (09:53)
[2021-08-20] MEDS: busPIRone 5 MG Tablet PO ×2 (09:53→22:53)
[2021-08-20] MEDS: Heparin Injection (Vial) 5,000 UNIT/ML VIAL 5000 UNIT SC ×2 (09:53→22:52)
[2021-08-20] MEDS: Pantoprazole Sodium 40 MG Tablet PO (09:53)
[2021-08-20] MEDS: Latanoprost 0.005% 1 Bottle 1 DRP OPHTHALMIC ×2 (09:54→22:52)
--- NOTE | 2021-08-20 10:48 | CASEMGMT ---
TC to [facility] to make aware pt will not dc until likely tomorrow. Radha roy.
--- NOTE | 2021-08-20 11:21 | PN.RENAL_ITS ---
Subjective Subjective denies any new complaints. some dizziness (vertigo) which happens occasionally Objective Data Objective Data Vital Signs: Vital Signs Temp Pulse Resp BP Pulse Ox 98.3 F 89 18 101/40 L 96 08/20/21 09:46 08/20/21 09:46 08/20/21 09:46 08/20/21 09:46 08/20/21 10:36 Oxygen Flow Rate (L/min) 2 Oxygen Delivery Method Room Air Weight: 90.2 kg Body Mass Index (BMI) 34.6 Intake & Output: Intake and Output for Last 24 Hours 08/18/21 08/19/21 08/20/21 23:59 23:59 23:59 Intake Total 850 / 850 1000 / 1100 400 / 400 Output Total 362 / 362 351 / 351 489 / 489 Balance 488 / 488 649 / 749 -89 / -89 Medical Nutrition Assessment Dietitian: Malnutrition Criteria Met Start: 08/17/21 15:10 Freq: Status: Active Protocol: Document 08/20/21 10:07 (Rec: 08/20/21 10:08 LO Laptop) Nutrition Malnutrition Evidence of Malnutrition Exists Yes Malnutrition (severe): Chronic Malnutrition (unspecified) Severe pro/noah Evidenced By Suboptimal Energy Intake ( Severe),Weight Loss (Severe) Clinical Problem Chronic Disease or Condition Related Malnutrition Etiology (severe) related to suboptimal appetite Signs/Symptoms <75% intake for >1 month and 10% weight loss in 5 months Status Active Problem Recommendation Dietitian Recommendations/Changes Renal Consistant carbohydrate diet Lab / Micro Data Result Diagrams: 08/20/21 06:12 08/20/21 06:12 Labs: Laboratory Results - last 24 hr 08/19/21 08:55: WBC 7.6, RBC 2.83 L, Hgb 9.4 L, Hct 28.8 L, MCV 101.8 H, MCH 33.2 H, MCHC 32.6, RDW Std Deviation 58.3 H, RDW Coeff of Alanna 15.7 H, Plt Count 210, MPV 9.8, Immature Gran % (Auto) 1.100 H, Neut % (Auto) 53.3, Lymph % (Auto) 33.9, [place] % (Auto) 8.6, Eos % (Auto) 2.6, Baso % (Auto) 0.5, Absolute Neuts (auto) 4.1, Absolute Lymphs (auto) 2.57, Nucleated RBC % 0 08/19/21 08:55: Random Vancomycin 25.0 H 08/19/21 08:55: Sodium 134 L, Potassium 4.5, Chloride 99, Carbon Dioxide 28.0, Anion Gap 7, BUN 34 H, Creatinine 6.19 H, Estim Creat Clear Calc 5.56, Est GFR (MDRD) Af Amer 8 L, Est GFR (MDRD) Non-Af 7 L, BUN/Creatinine Ratio 5.5 L, Glucose 176 H, Calcium 8.2 L 08/19/21 11:00: POC Glucose 142 H 08/19/21 16:12: POC Glucose 143 H 08/19/21 22:04: POC Glucose 220 H 08/20/21 06:12: WBC 7.4, RBC 2.63 L, Hgb 8.7 L, Hct 27.2 L, MCV 103.4 H, MCH 33.1 H, MCHC 32.0, RDW Std Deviation 59.2 H, RDW Coeff of Alanna 15.7 H, Plt Count 209, MPV 9.9, Immature Gran % (Auto) 0.900, Neut % (Auto) 54.2, Lymph % (Auto) 33.2, [place] % (Auto) 8.6, Eos % (Auto) 2.7, Baso % (Auto) 0.4, Absolute Neuts (auto) 4.0, Absolute Lymphs (auto) 2.46, Nucleated RBC % 0 08/20/21 06:12: Sodium 131 L, Potassium 4.2, Chloride 96 L, Carbon Dioxide 26.0, Anion Gap 9, BUN 34 H, Creatinine 6.06 H, Estim Creat Clear Calc 5.68, Est GFR (MDRD) Af Amer 9 L, Est GFR (MDRD) Non-Af 7 L, BUN/Creatinine Ratio 5.6 L, Glucose 220 H, Calcium 7.9 L 08/20/21 06:44: POC Glucose 222 H Micro: Microbiology 08/18/21 07:45 Fluid - Peritoneal Gram Stain - Final 08/18/21 07:45 Fluid - Peritoneal Body Fluid Culture - Preliminary No growth-Final to follow 08/18/21 07:45 Fluid - Peritoneal Anaerobic Culture - Preliminary No growth in 48 hours. 08/16/21 16:50 Blood Culture (Wb) - Anticubital Right Blood Culture - Preliminary Coag Negative Staph 08/16/21 19:30 Blood Culture (Wb) - Anticubital Left Blood Culture - Preliminary No growth in 48 hours. 08/16/21 Unknown Urine, Catheterized Urine Culture - Final Klebsiella pneumoniae sp pneum Physical Exam Narrative Const: Alert and oriented x3 HEENT: Pupils equal round reactive to light, nation oral mucosa is moist neck is soft and supple Cardio: S1, S2, rhythm rate regular Respiratory: Lung sounds clear anteriorly and posteriorly GI: Abdomen soft, nontender, positive bowel sounds x4 quadrants. PD catheter intact with dressing clean, dry and intact Extremities: No edema Assessment & Plan Assessment/Plan (1) ESRD on peritoneal dialysis: (2) Complicated urinary tract infection: (3) Encephalopathy: (4) Hyperkalemia: PLAN: Plan: Continue current CCPD treatment. Labs were reviewed. Potassium has improved with CCPD. The patient is hemodynamically stable. Doubt the patient has PD catheter related peritonitis. Peritoneal fluid sample from 08/18/2021 did not show any significant WBCs, and the patient has not had any abdominal pain prior to or during this admission. Suspect gram-positive cocci from PD fluid sample is a contaminant. Continue treatment of UTI as per hospital medicine service.
[2021-08-20 11:55] LABS: Bedside Glucose 139 mg/dL (74-106)
--- NOTE | 2021-08-20 14:33 | PCM.PN.HOSP ---
Subjective Subjective Patient reports that she does not feel well however is unable to describe for me how she does not feel well. She indicates she does not feel a whole lot better since she presented to the hospital however her mental status seems to be back to baseline. There is some report that she is very tearful at home and has similar complaints even prior to this current issue. She states that she does not want to have to go home and then have to come right back. It sounds also as if there may be some compliance issue with therapy at home. She states she lives alone however her daughter lives right next door to her. Objective Data Objective Data Vital Signs: Vital Signs Temp Pulse Resp BP Pulse Ox 98.3 F 89 18 101/40 L 96 08/20/21 09:46 08/20/21 09:46 08/20/21 09:46 08/20/21 09:46 08/20/21 10:36 Oxygen Flow Rate (L/min) 2 Oxygen Delivery Method Room Air Weight: 90.2 kg Body Mass Index (BMI) 34.6 Intake & Output: Intake and Output for Last 24 Hours 08/18/21 08/19/21 08/20/21 23:59 23:59 23:59 Intake Total 850 / 850 1000 / 1100 450 / 450 Output Total 362 / 362 351 / 351 489 / 489 Balance 488 / 488 649 / 749 -39 / -39 Medical Nutrition Assessment Dietitian: Malnutrition Criteria Met Start: 08/17/21 15:10 Freq: Status: Active Protocol: Document 08/20/21 10:07 LO (Rec: 08/20/21 10:08 LO Laptop) Nutrition Malnutrition Evidence of Malnutrition Exists Yes Malnutrition (severe): Chronic Malnutrition (unspecified) Severe pro/noah Evidenced By Suboptimal Energy Intake ( Severe),Weight Loss (Severe) Clinical Problem Chronic Disease or Condition Related Malnutrition Etiology (severe) related to suboptimal appetite Signs/Symptoms <75% intake for >1 month and 10% weight loss in 5 months Status Active Problem Recommendation Dietitian Recommendations/Changes Renal Consistant carbohydrate diet Lab / Micro Data Result Diagrams: 08/20/21 06:12 08/20/21 06:12 Labs: Laboratory Results - last 24 hr 08/19/21 16:12: POC Glucose 143 H 08/19/21 22:04: POC Glucose 220 H 08/20/21 06:12: WBC 7.4, RBC 2.63 L, Hgb 8.7 L, Hct 27.2 L, MCV 103.4 H, MCH 33.1 H, MCHC 32.0, RDW Std Deviation 59.2 H, RDW Coeff of Alanna 15.7 H, Plt Count 209, MPV 9.9, Immature Gran % (Auto) 0.900, Neut % (Auto) 54.2, Lymph % (Auto) 33.2, [place] % (Auto) 8.6, Eos % (Auto) 2.7, Baso % (Auto) 0.4, Absolute Neuts (auto) 4.0, Absolute Lymphs (auto) 2.46, Nucleated RBC % 0 08/20/21 06:12: Sodium 131 L, Potassium 4.2, Chloride 96 L, Carbon Dioxide 26.0, Anion Gap 9, BUN 34 H, Creatinine 6.06 H, Estim Creat Clear Calc 5.68, Est GFR (MDRD) Af Amer 9 L, Est GFR (MDRD) Non-Af 7 L, BUN/Creatinine Ratio 5.6 L, Glucose 220 H, Calcium 7.9 L 08/20/21 06:44: POC Glucose 222 H 08/20/21 11:38: POC Glucose 139 H Micro: Microbiology 08/18/21 07:45 Fluid - Peritoneal Gram Stain - Final 08/18/21 07:45 Fluid - Peritoneal Body Fluid Culture - Preliminary No growth-Final to follow 08/18/21 07:45 Fluid - Peritoneal Anaerobic Culture - Preliminary No growth in 48 hours. 08/16/21 16:50 Blood Culture (Wb) - Anticubital Right Blood Culture - Preliminary Coag Negative Staph 08/16/21 19:30 Blood Culture (Wb) - Anticubital Left Blood Culture - Preliminary No growth in 48 hours. 08/16/21 Unknown Urine, Catheterized Urine Culture - Final Klebsiella pneumoniae sp pneum Physical Exam Const alert, oriented x3 and no apparent distress Constitutional Narrative: Obese, white female, sitting up in bed watching television, appears comfortable and nontoxic however mood is very labile Exam Limitations: no limitations Nutritional Appearance: obese HEENT head/scalp atraumatic and moist oral mucous membranes HEENT Narrative: Mallampati is 2-3, no thrush Head and Scalp: normocephalic Resp normal respiratory effort, no retractions, no use of accessory muscles and clear to auscultation bilaterally Auscultation: Negative for crackles, rales, rhonchi or wheezes Cardio regular rate, regular rhythm, S1 normal heart sound, S2 normal heart sound, no murmurs, no rub, no gallops, no clicks and no JVD GI normal to inspection, nondistended, normoactive bowel sounds, soft to palpation, non-tender and non-distended Extremity no clubbing, cyanosis or edema Peripheral Pulses: Yes pulses 2+ throughout Neuro oriented x3, CN's II-XII intact bilaterally, moves all extremities and no focal motor deficits Neuro Narrative: Generalized weakness however no focal deficits noted Sensorium / Orientation: awake and alert Speech: speech normal Psych Psych Narrative: Affect is flat, patient seems depressed and anxious, tearful at times during our conversation Assessment & Plan Assessment/Plan (1) Complicated urinary tract infection: (2) Severe protein-calorie malnutrition: (3) Encephalopathy: (4) Hyperkalemia: PLAN: Acute urinary tract infection -Klebsiella growing in culture -Organism is pansensitive -Continue IV antibiotics with ceftriaxone -We will transition to orals at discharge and treat for total of 7 to 10 days given this is complicated course -Dysuria has resolved Acute metabolic encephalopathy -Resolved -[place] due to to the above Positive blood cultures -1 of 2 bottles positive for coag negative staph -2D echo was performed and unremarkable for valvular issues -Likely contaminant -Okay to discontinue vancomycin Hyperkalemia -resolved End-stage renal disease -PD dependent -Nephrology is following -peritoneal fluid cultures are negative at final report Hypomagnesemia -Resolved Hypothyroidism -Continue Synthroid CAD/hypertension/hyperlipidemia -Continue aspirin -Continue statin -Continue Coreg GERD -Continue PPI DM-2 -Continue sliding scale -Add Lantus 16 units at at bedtime -Patient was on Lantus 8 units twice daily prior to admission -Continue Accu-Cheks -Oral medications are on hold-we will restart at discharge History of asthma -Currently stable -On room air -Continue nebs as needed Debility -Continue PT/OT -Home health care at discharge Depression/anxiety -Continue home BuSpar -Would recommend follow-up with outpatient PCP for consideration of antidepressant as patient has been very tearful during her hospitalization DVT prophylaxis -Continue heparin SQ -Continue SCDs CODE STATUS -DNR CCA without intubation Charges/Coding Visit Charges Inpatient E&M: 89205 Subs Hosp L2
[2021-08-20 16:55] LABS: Bedside Glucose 126 mg/dL (74-106)
--- NOTE | 2021-08-20 21:17 | DIALYSIS ---
CCPD treatment initiated at?2049?using aseptic technique, 1.5% and 2.5% dextrose bags, total volume 12.5L, 5 exchanges, 2.5L fills,?14 hour 10 min treatment time,?RLQ dressing changed, site benign, initial effluent pre-drained?52mL,?effluent clear yellow
[2021-08-20] MEDS: 0.9% Saline Lock 10 ML Syringe IV (22:52)
[2021-08-20] MEDS: Ceftriaxone 1 GM/50 ML BAG IV (22:52)
[2021-08-20] MEDS: Atorvastatin Calcium 80 MG Tablet PO (22:53)
[2021-08-20] MEDS: buPROPion 75 MG Tablet PO (22:53)
[2021-08-20] MEDS: Insulin Glargine-YFGN 100 UNIT/ML Pen 16 UNIT SC (22:54)
[2021-08-20 23:11] LABS: Bedside Glucose 225 mg/dL (74-106)
[2021-08-21 02:02] VITALS: BP 122/45; PULSE 88; RESP 18; TEMP 36.4; O2SAT 97
[2021-08-21 05:03] LABS: Absolute Lymphocyte Count 2.37 X10^3/uL (0.83-4.51); Absolute Neutrophil Count 3.9 X10^3/uL (2.0-7.7); Basophil# 0.03 X10^3/uL; Basophil% 0.4 % (0-1); Eosinophil# 0.22 X10^3/uL; Hematocrit 27.1 % (37-47); Hemoglobin 8.8 g/dL (12.0-15.0); Lymphocyte # 2.37 X10^3/ul (0.83-4.51); Lymphocyte % 32.1 % (19-41); Mean Corp Hgb Conc 32.5 g/dL (32-36); Mean Corpuscular Hgb 33.6 pg (27.0-32.0); Mean Corpuscular Volume 103.4 fL (81-99); Mean Platelet Vol. 10.3 fl (6.2-12.0); Monocyte# 0.74 X10^3/uL; NRBC Flagged by Analyzer 0 % (0-5); Neutrophil # 3.94 X10^3/uL (2.7-7.7); Neutrophil % 53.3 % (47-70); Platelet Count 211 K/mm3 (150-450); RBC Distribution Width CV 15.9 % (11.6-14.6); RBC Distribution Width SD 59.5 fl (35.1-43.9); Red Blood Count 2.62 M/mm3 (4.2-5.4); White Blood Count 7.4 K/mm3 (4.4-11.0)
[2021-08-21 05:32] LABS: Anion Gap 9 (5-15); BUN 37 mg/dL (7-18); BUN/Creat Ratio 6.1 RATIO (10-20); Calcium,Total 7.9 mg/dL (8.5-10.1); Chloride 95 mmol/L (98-107); Creatinine, Serum 6.04 mg/dL (0.55-1.02); EST Glomerular Filtration Rate 7 mL/min (>60); Est Glom Filt Rate - Afr Amer 9 mL/min (>60); Glucose 198 mg/dL (74-106); Potassium 4.1 mmol/L (3.5-5.1); Sodium Level 131 mmol/L (136-145)
[2021-08-21] MEDS: Levothyroxine 137 MCG Tablet PO (06:36)
[2021-08-21] MEDS: Insulin Lispro 100 UNIT/ML INSULN.PEN SC (06:36)
[2021-08-21 06:56] LABS: Bedside Glucose 199 mg/dL (74-106)
[2021-08-21 07:26] VITALS: PULSE 84; RESP 18; O2SAT 95
[2021-08-21] MEDS: Budesonide Respules 0.5 MG/2 ML AMPUL.NEB. INHALATION (07:26)
[2021-08-21] MEDS: Ipratropium 0.5 MG/2.5 ML SOLUTION INHALATION ×2 (07:26→14:00)
[2021-08-21 09:27] VITALS: BP 117/45; PULSE 83; RESP 18; TEMP 36.7; O2SAT 95
[2021-08-21 09:27] LABS: Pathologist Comment/Body Fluid Reviewed
[2021-08-21] MEDS: Pantoprazole Sodium 40 MG Tablet PO (09:29)
[2021-08-21] MEDS: Aspirin 81 MG TAB.CHEW PO (09:29)
[2021-08-21] MEDS: busPIRone 5 MG Tablet PO (09:29)
[2021-08-21] MEDS: buPROPion 75 MG Tablet PO (09:30)
[2021-08-21] MEDS: Senna Tablet 1 TABLET PO (09:30)
[2021-08-21] MEDS: Latanoprost 0.005% 1 Bottle 1 DRP OPHTHALMIC (09:30)
[2021-08-21] MEDS: Heparin Injection (Vial) 5,000 UNIT/ML VIAL 5000 UNIT SC (09:30)
[2021-08-21] MEDS: Calcitriol 0.25 MCG Capsule PO (09:30)
[2021-08-21] MEDS: Montelukast 10 MG Tablet PO (09:31)
--- NOTE | 2021-08-21 09:52 | CASEMGMT ---
Pt to dc today. Notified [facility] [place], added COMMUTATOR OPERATOR per hospitalist discussion.
[2021-08-21 11:30] LABS: Bedside Glucose 149 mg/dL (74-106)
--- NOTE | 2021-08-21 13:00 | PCM.DC.SUM ---
Providers Date of Admission: 08/16/21 Date of Discharge: 08/21/21 Primary Care Physician: Dr. Satnam Saldana MD Consultations 08/16/21 20:41 Consult: Nephrology Routine Consulting Provider: Yo Garcia Reason for Consult: ESRD EMERGENT Consult: No MD Notified: Yes Date Notified: 08/16/21 Time Notified: 21:04 Method of Notification: Answering Service Reason For Visit: ACUTE ENCEPHALOPATHY, UTI Diagnosis Discharge Diagnosis (1) Complicated urinary tract infection: Status: Acute Code(s): N39.0 - Urinary tract infection, site not specified (2) Severe protein-calorie malnutrition: Status: Acute Code(s): E43 - Unspecified severe protein-calorie malnutrition (3) Encephalopathy: Status: Acute Code(s): G93.40 - Encephalopathy, unspecified (4) Hyperkalemia: Status: Acute Code(s): E87.5 - Hyperkalemia Medications at Discharge Home Medications atorvastatin 80 mg tablet 80 mg PO QHS 10/12/18 omeprazole 40 mg capsule,delayed release 40 mg PO DAILY 10/12/18 albuterol sulfate 90 mcg/actuation aerosol inhaler 2 puff INHALATION Q4H PRN g 10/13/18 calcitriol 0.25 mcg capsule 0.25 mcg PO .COMPLEX cap 10/26/19 latanoprost 0.005 % eye drops 1 drp OPHTHALMIC BID ml 10/26/19 montelukast 10 mg tablet 10 mg PO DAILY 10/26/19 Flovent HFA 1 puff INHALATION BID 03/28/21 insulin glargine [Lantus Solostar U-100 Insulin] 8 unit SUBCUT BID 03/28/21 pioglitazone 15 mg PO DAILY 03/28/21 diclofenac 1 % topical gel and kinesiology tape 1 ea TOPICAL DAILY PRN 04/13/21 lidocaine 4 % topical patch 1 patch TOPICAL DAILY PRN 04/13/21 polyethylene glycol 3350 17 gram oral powder packet 17 g PO DAILY 04/13/21 sennosides 8.6 mg tablet 8.6 mg PO BID 04/13/21 tiotropium bromide 2.5 mcg/actuation mist for inhalation 2 puff INHALATION QAM 04/13/21 acetaminophen 325 mg tablet 650 mg PO Q4H PRN tab 05/10/21 bisacodyl 10 mg rectal suppository 10 mg NH DAILY PRN 05/10/21 buspirone 5 mg tablet 5 mg PO BID 05/10/21 cyanocobalamin (vitamin B-12) 2,500 mcg sublingual tablet 2,500 mcg SUBLINGUAL QWEEK tab 05/10/21 ergocalciferol (vitamin D2) 50,000 unit tablet 50,000 unit PO QWEEK tab 05/10/21 gentamicin 0.1 % topical cream 1 applic TOPICAL DAILY g 05/10/21 insulin lispro 100 unit/mL subcutaneous pen 1 sliding scale dose SUBCUT USEASDIRECTD 05/10/21 ipratropium 0.5 mg-albuterol 3 mg (2.5 mg base)/3 mL nebulization soln 3 ml INHALATION Q6H PRN 05/10/21 levothyroxine 137 mcg tablet 137 mcg PO DAILY tab 05/10/21 potassium chloride 20 mEq tablet,extended release 20 meq PO DAILY 05/10/21 carvedilol [Coreg] 3.125 mg PO BID 30 Days #60 tab 07/26/21 cefuroxime axetil 500 mg PO .every other day 6 Days tab 08/21/21 Hospital Course Operations None Procedures 2-D Echocardiogram Summary of Care Provided Minutes Spent on Discharge: 42 Hospital Course: Mrs. Banegas is a 81-year-old white female who presented to the emergency department at [facility] on 08/16/2021 secondary to failure to thrive in the adult and increased lethargy. She has progressively been unable to care for herself at home and was recently treated by her primary care physician for a urinary tract infection with nitrofurantoin. She unfortunately developed intractable nausea and stopped taking her medication and progressively worsened since that time. In the emergency department a UA was obtained and was noted to be markedly purulent and a urine culture was obtained and found to be positive for Klebsiella pneumonia urinary tract infection. The organism was overall fairly sensitive and the patient was maintained on IV antibiotics during her hospital course with ceftriaxone. The patient is on peritoneal dialysis at baseline however she still does make urine. Work-up in the emergency department included vital signs which were found to be fairly unremarkable. Her CBC shows a mildly elevated white count at 10.2 with a chronic stable anemia and no marked left shift. Her CMP shows a mildly elevated potassium at 5.3 however that it was moderately hemolyzed. Her BUN was 32 and her serum creatinine was 6.27. Her blood glucose was 45 at the time of admission and her magnesium was 1.5. An ammonia was obtained and found to be normal and ABG was performed and overall unremarkable. She was given Rocephin in the emergency department and admitted to the medical floor. Peritoneal fluid was obtained for culture and initially Gram stain was suggestive of possible infection however the patient had no real symptoms consistent with peritonitis and the resultant final culture was negative for any growth. Blood culture was negative as well. The patient's mental status returned to baseline however the patient remained profoundly labile in her mood. I had extensive discussion with her [id number] who is at the bedside on 08/21/2021 and this is evidently been an ongoing issue. She had been on citalopram previously and this had to be discontinued given her cardiac issues and bradycardic events she had in February. She has been on Wellbutrin since late March or May but family states that this does not seem to be helping her all that much. After extensive discussion with them I think a lot of her issues are mental health and I have recommended that she follow-up with her primary care physician to discuss antidepressant medication changes. Overall she is somewhat limited secondary to her previous cardiac history. She was seen by occupational and physical therapy and they felt she was appropriate to go back home but have home health care with follow-up. Arrangements for home health have been made and will start on 08/22/2021. The patient does live alone however family is close and available for increased assistance if need be. We did discuss things that the patient does enjoy to do and she does enjoy reading. I did discuss with her possibly obtaining books to listen to his reading is difficult for her now secondary to her vision. We did also discussed the importance of continuing her physical and Occupational Therapy after discharge as she has been resistant to this previously, and improving her physical and endurance status overall. I have instructed her to follow-up with her primary care physician in the next 1 to 2 weeks predominantly to discuss mental health and options for her for antidepressants. No changes were made in the hospital course as I did not want to change medication without knowledge of intimate follow-up. She was discharged with renally/PD dosed cefuroxime to be taken at 500 mg every other day for the next 6 days to complete antibiotic course. No other medication changes were made at this time however we did inform her to hold her Coreg until Friday as her blood pressures had been somewhat on the low normal side during her hospitalization but trending towards improvement prior to discharge. 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 Debility Depression Anxiety Physical Exam Const alert, oriented x3 and no apparent distress Constitutional Narrative: Obese, white female, sitting up in bed [id number] is at the bedside, patient appears improved with regards to overall outlook and physical appearance today General Appearance: cooperative, comfortable, well kempt and well developed Orientation / Consciousness: lethargic Exam Limitations: no limitations Nutritional Appearance: obese HEENT normocephalic, head/scalp atraumatic and moist oral mucous membranes HEENT Narrative: Mildly hard of hearing, Mallampati 2-3, no thrush, dentures in place Eyes PERRL and EOMs intact bilaterally Eyes Narrative: Conjunctiva are mildly pale, no scleral icterus Neck no lymphadenopathy, supple and no JVD Neck Narrative: Trachea midline Resp normal respiratory effort, no retractions, no use of accessory muscles and clear to auscultation bilaterally Auscultation: Negative for crackles, rales, rhonchi or wheezes Cardio regular rate, regular rhythm, S1 normal heart sound, S2 normal heart sound, no murmurs, no rub, no gallops, no clicks and no JVD GI normal to inspection, nondistended, normoactive bowel sounds, soft to palpation, non-tender and non-distended GI Narrative: peritoneal dialysis catheter in place Extremity normal to inspection, full ROM and no clubbing, cyanosis or edema Skin no rashes or lesions noted, skin turgor normal and no jaundice Neuro oriented x3, CN's II-XII intact bilaterally, moves all extremities and no focal motor deficits Neuro Narrative: Generalized weakness however no focal deficits noted Sensorium / Orientation: awake and alert Speech: speech normal Psych Negative for affect normal Psych Narrative: Affect remains flat although patient is more interactive today than she was yesterday, still tearful at times, mood seems depressed, less anxiety today Mood & Affect: depressed Medical Records Data Medical Nutrition Assessment Dietitian: Malnutrition Criteria Met Start: 08/17/21 15:10 Freq: Status: Active Protocol: Document 08/20/21 10:07 LO (Rec: 08/20/21 10:08 LO Laptop) Nutrition Malnutrition Evidence of Malnutrition Exists Yes Malnutrition (severe): Chronic Malnutrition (unspecified) Severe pro/noah Evidenced By Suboptimal Energy Intake ( Severe),Weight Loss (Severe) Clinical Problem Chronic Disease or Condition Related Malnutrition Etiology (severe) related to suboptimal appetite Signs/Symptoms <75% intake for >1 month and 10% weight loss in 5 months Status Active Problem Recommendation Dietitian Recommendations/Changes Renal Consistant carbohydrate diet Weight / BMI Weight Weight: 90.5 kg Body Mass Index (BMI) 34.6 ABG / Lab / Microbiology Data Result Diagrams: 08/21/21 04:09 08/21/21 04:09 Laboratory: Laboratory Results - last 24 hr 08/18/21 07:45: Fl Pathologist Comment Reviewed 08/20/21 16:08: POC Glucose 126 H 08/20/21 22:48: POC Glucose 225 H 08/21/21 04:09: WBC 7.4, RBC 2.62 L, Hgb 8.8 L, Hct 27.1 L, MCV 103.4 H, MCH 33.6 H, MCHC 32.5, RDW Std Deviation 59.5 H, RDW Coeff of Alanna 15.9 H, Plt Count 211, MPV 10.3, Immature Gran % (Auto) 1.200 H, Neut % (Auto) 53.3, Lymph % (Auto) 32.1, [place] % (Auto) 10.0, Eos % (Auto) 3.0, Baso % (Auto) 0.4, Absolute Neuts (auto) 3.9, Absolute Lymphs (auto) 2.37, Nucleated RBC % 0 08/21/21 04:09: Sodium 131 L, Potassium 4.1, Chloride 95 L, Carbon Dioxide 27.0, Anion Gap 9, BUN 37 H, Creatinine 6.04 H, Estim Creat Clear Calc 5.70, Est GFR (MDRD) Af Amer 9 L, Est GFR (MDRD) Non-Af 7 L, BUN/Creatinine Ratio 6.1 L, Glucose 198 H, Calcium 7.9 L 08/21/21 06:35: POC Glucose 199 H 08/21/21 11:24: POC Glucose 149 H Microbiology: Microbiology 08/18/21 07:45 Fluid - Peritoneal Gram Stain - Final 08/18/21 07:45 Fluid - Peritoneal Body Fluid Culture - Final No growth aerobically. 08/18/21 07:45 Fluid - Peritoneal Anaerobic Culture - Preliminary No growth in 48 hours. 08/16/21 16:50 Blood Culture (Wb) - Anticubital Right Blood Culture - Preliminary Coag Negative Staph 08/16/21 19:30 Blood Culture (Wb) - Anticubital Left Blood Culture - Preliminary No growth in 48 hours. 08/16/21 Unknown Urine, Catheterized Urine Culture - Final Klebsiella pneumoniae sp pneum D/C Instructions Discharge Diet: Low fat / Low cholesterol and 1800 Calorie Control Diet Discharge Activity: Return to Normal Activity Meaningful Use Info Meaningful Use Diagnoses (Choose all that apply): None applicable Discharge Plan Admission Admit Date/Time: 08/16/21 19:19 Primary Reason for Your Visit: UTI Attending Provider: Radha Oden Primary Care Provider: Satnam Saldana Consulting Providers: Yo Garcia ; Juana Mathew ; Briseida Saldana Discharge Orders/Prescriptions Prescriptions: New cefuroxime axetil 500 mg tablet 500 mg PO .every other day 6 Days RF: 0 Continued omeprazole 40 mg capsule,delayed release(DR/EC) 40 mg PO DAILY RF: 0 atorvastatin 80 mg tablet 80 mg PO QHS RF: 0 albuterol sulfate 90 mcg/actuation HFA aerosol inhaler 2 puff INHALATION Q4H PRN (Reason: shortness ) RF: 0 latanoprost 0.005 % drops 1 drp OPHTHALMIC BID RF: 0 cyanocobalamin (vitamin B-12) [Vitamin B-12] 2,500 mcg tablet, sublingual 2,500 mcg SUBLINGUAL QWEEK RF: 0 levothyroxine 137 mcg tablet 137 mcg PO DAILY RF: 0 calcitriol 0.25 mcg capsule 0.25 mcg PO .COMPLEX RF: 0 montelukast 10 mg tablet 10 mg PO DAILY RF: 0 diclofenac-kinesiology tape 1 % kit 1 ea topical DAILY PRN (Reason: Pain) RF: 0 lidocaine 4 % adhesive patch,medicated 1 patch topical DAILY PRN (Reason: Pain) RF: 0 polyethylene glycol 3350 17 gram powder in packet 17 g PO DAILY RF: 0 sennosides 8.6 mg tablet 8.6 mg PO BID RF: 0 Spiriva Respimat 2.5 mcg/actuation mist 2 puff inhalation QAM RF: 0 buspirone 5 mg tablet 5 mg PO BID RF: 0 ergocalciferol (vitamin D2) 50,000 unit tablet 50,000 unit PO QWEEK RF: 0 gentamicin 0.1 % cream 1 applic topical DAILY RF: 0 insulin lispro 100 unit/mL insulin pen 1 sliding scale dose subcut USEASDIRECTD RF: 0 potassium chloride 20 mEq tablet extended release 20 meq PO DAILY RF: 0 acetaminophen 325 mg tablet 650 mg PO Q4H PRN (Reason: pain/fever) RF: 0 bisacodyl 10 mg suppository 10 mg NH DAILY PRN (Reason: Constipation) RF: 0 pioglitazone 15 mg Tablet 15 mg PO DAILY RF: 0 Flovent HFA 110 mcg/actuation HFA aerosol inhaler 1 puff INHALATION BID RF: 0 insulin glargine [Lantus Solostar U-100 Insulin] 100 unit/mL (3 mL) Insulin Pen 8 unit subcut BID RF: 0 ipratropium-albuterol 0.5 mg-3 mg(2.5 mg base)/3 mL solution for nebulization 3 ml INHALATION Q6H PRN (Reason: sob) RF: 0 Held carvedilol [Coreg] 3.125 mg tablet 3.125 mg PO BID 30 Days Qty: 60 RF: 0 Hold Instructions: Resume on 08/24/21. Referrals / Follow Up: Satnam Saldana MD [Primary Care Provider] - Within 1 Week Disposition Disposition (needs filled in before D/C Order can be placed): Home Health Service Charges/Coding Visit Charges Inpatient E&M: 75015 Disch Hosp
--- NOTE | 2021-08-21 13:18 | CASEMGMT ---
Social Work SW received referral from physician. Pt tearful and upset. SW met with pt and introduced self and role of SW. SW inquiring about pt mental health. Pt confirms that she has been anxious and depressed since her heart attack in February. Pt stating to prior to this cardiac event, she did not have any feelings of depression or anxiety. Pt denies suicidal ideation. Pt tearful during conversation. Pt expressing anxiety related to something happening to her heart again and an end of life event. Pt does state her children check on her several times a day. Pt was taking an anti depressant but does not feel it has made a difference. SW encouraged pt to speak to her PCP about this as there may be a medication that would be more helpful for her. SW also discussed counseling services with pt. Pt has not previously seen a counselor. SW provided pt with list of are counseling services and pt is accepting of this. SW also spoke with pt regarding medical alert as a means of security of something should happen. Pt is agreeable for more information regarding this. Pt provided written list of medical alert suppliers. Pt updated that [employer] has been added to home health order. left for [facility] [employer] to provide pt handoff. Pt denies any other needs at this time. ALAN Gonzalez
[2021-08-21 14:01] VITALS: PULSE 87; RESP 18
--- NOTE | 2021-08-21 14:31 | NURSING ---
Per dialysis nurse she took pt off PD and got 692 ml off of her last pm
[2021-08-21 14:53] VITALS: BP 115/51; PULSE 84; RESP 18; TEMP 36.6; O2SAT 94
== END 2021-08-21 16:28 | disposition home health service (06) | DRG 689 ==
LOC: ED 19:11 → MS3 19:31
PROVIDERS: Nurse Practitioner; Nurse Practitioner Adult Health; Student in an Organized Health Care Education/Training Program; Admitting Provider Family Medicine; Emergency Provider Emergency Medicine; PCP Family Medicine; Visit Provider Internal Medicine
DX: N39.0 Urinary tract infection, site not specified (principal); N18.6 End stage renal disease; G93.41 Metabolic encephalopathy; E43 Unspecified severe protein-calorie malnutrition; I13.2 Hypertensive heart and chronic kidney disease with heart failure and with stage 5 chronic kidney disease, or end stage renal disease; R18.8 Other ascites; I50.32 Chronic diastolic (congestive) heart failure; E11.649 Type 2 diabetes mellitus with hypoglycemia without coma; D63.8 Anemia in other chronic diseases classified elsewhere; E11.22 Type 2 diabetes mellitus with diabetic chronic kidney disease; Z99.2 Dependence on renal dialysis; E78.5 Hyperlipidemia, unspecified; E87.5 Hyperkalemia; I25.10 Atherosclerotic heart disease of native coronary artery without angina pectoris; J45.909 Unspecified asthma, uncomplicated; E03.9 Hypothyroidism, unspecified; K21.9 Gastro-esophageal reflux disease without esophagitis; B96.1 Klebsiella pneumoniae [K. pneumoniae] as the cause of diseases classified elsewhere; F41.9 Anxiety disorder, unspecified; E83.42 Hypomagnesemia; I65.22 Occlusion and stenosis of left carotid artery; F32.A Depression, unspecified; Z79.84 Long term (current) use of oral hypoglycemic drugs; Z51.5 Encounter for palliative care; Z79.01 Long term (current) use of anticoagulants; Z79.82 Long term (current) use of aspirin; Z66 Do not resuscitate; R53.81 Other malaise; R62.7 Adult failure to thrive; Z95.0 Presence of cardiac pacemaker
CPT/HCPCS: 36415; 36600; 70450; 71045; 80048; 80053; 80076; 80202; 81001; 82140; 82803; 82962; 83735; 84100; 85025; 87040; 87070; 87075; 87077; 87086; 87088; 87186; 87205; 89050; 90947; 93005; 93306; 94640; 97110; 97162; 97166; 97530; 99251; 99285; J7030; J7040; J7050; Q9957; A4216; C8929; G0257; G0463

== ENCOUNTER 2021-12-30 19:06 | Emergency (ER) | payer MEDICARE, SELFPAY ==
[2021-12-30 19:07] VITALS: BP 124/52; PULSE 80; RESP 15; TEMP 36.2; O2SAT 94; BMI 38.8
--- NOTE | 2021-12-30 19:28 | CT_ITS ---
STUDY: CT BRAIN WITHOUT CONTRAST REASON FOR EXAM: Female, 81 years old. fall RADIATION DOSAGE (If Supplied By Facility): CTDIvol = ( 44.99 ) mGy, DLP = ( 812.98 ) mGycm TECHNIQUE: Transaxial CT imaging of the brain was performed without administration of intravenous contrast material. Individualized dose optimization techniques were used for this CT. COMPARISON: 08/16/2021 FINDINGS: Normal soft tissue structures. There is hyperostosis frontalis internus. There is moderate cerebral atrophy with widening of the extra-axial spaces and ventricular dilatation. There are areas of decreased attenuation within the white matter tracts of the supratentorial brain, consistent with microvascular disease changes. Normal basal ganglia and thalami. Normal brainstem. Normal cerebellum. There is no intracranial hemorrhage. There are no findings of an acute ischemic infarction. There is mucoperiosteal inflammatory disease of the paranasal sinuses consistent with moderate chronic sinusitis. CT/Brain/Head without Contrast IMPRESSION: Chronic involutional changes of the brain. Electronically Signed: Aldo Abdullahi MD at 19:53 EDT ,
--- NOTE | 2021-12-30 19:28 | CT_ITS ---
STUDY: CT CERVICAL SPINE WITHOUT CONTRAST REASON FOR EXAM: Female, 81 years old. fall RADIATION DOSAGE (If Supplied By Facility): CTDIvol = ( 27.37 ) mGy, DLP = ( 579.23 ) mGycm TECHNIQUE: High resolution transaxial imaging was performed without contrast material. Sagittal and coronal images were reconstructed. Individualized dose optimization techniques were used for this CT. COMPARISON: None FINDINGS: Normal craniovertebral junction. There is hypertrophy of the transverse ligament of the atlas with mild posterior displacement of the superior and inferior longitudinal fibers of the cruciform ligament, producing minimal ventral thecal sac flattening, but without cervical cord impingement. There are mild degenerative changes in the anterior atlantoaxial articulation. Normal odontoid process. Normal cervical lordosis. Normal vertebral bodies and posterior osseous elements. C2-3: Mild broad disc osteophyte complex produces mild spinal stenosis. No neural foraminal stenosis. C3-4: Normal endplates. Normal disc height and morphology. Normal central canal and intervertebral neuroforamina. C4-5: Mild broad disc osteophyte complex produces mild spinal stenosis. No neural foraminal stenosis. C5-6: Mild broad disc osteophyte complex and bilateral uncovertebral hypertrophy produces mild spinal stenosis and mild bilateral neural foraminal stenosis. C6-7: Mild broad disc osteophyte complex and bilateral uncovertebral hypertrophy produces mild spinal stenosis and mild bilateral neural foraminal stenosis. C7-T1: Normal endplates. Normal disc height and morphology. Normal central canal and intervertebral neuroforamina. Normal visualized soft tissue structures. CT/Spine Cervical without Contras IMPRESSION: No acute fracture or subluxation. Electronically Signed: Aldo Abdullahi MD at 19:59 EDT ,
[2021-12-30] MEDS: Acetaminophen 500 MG Tablet 1000 MG PO (19:32)
[2021-12-30] MEDS: Diphth,Pertuss(Acell),Tet Vac 0.5 ML Vial IM (19:32)
--- NOTE | 2021-12-30 19:40 | RAD_ITS ---
STUDY: X-RAY - RIGHT RADIUS AND ULNA REASON FOR EXAM: Female, 81 years old. fall TECHNIQUE: 2 view(s) of the forearm. COMPARISON: None. FINDINGS: Air-filled defect of the soft tissues of the posterior laterally suggestive of a large laceration. Normal visualized radius. Normal visualized ulna. RAD/Forearm 2 Views IMPRESSION: Normal x-ray examination of the radius and ulna. Suspect large laceration of the posterior lateral soft tissues of the mid forearm. Electronically Signed: Aldo Abdullahi MD at 19:56 EDT ,
--- NOTE | 2021-12-30 19:53 | EX.ED.DYSGE1 ---
HPI <LUZ ELENA Lockett - Last Filed: 12/30/21 20:21> History of Present Illness Chief Complaint: Fall Narrative Narrative: 81-year-old female with history of end-stage renal disease on peritoneal dialysis, type 2 diabetes presents to the emergency department after mechanical fall. Patient was walking up the stairs, her daughter was behind her. She missed a step, falling forward. She struck the right arm on the railing causing a skin tear, she also has a skin tear to her right stanton. Patient did strike her head, she has bruising to her nose, pain in her neck. She denies any LOC. Patient does have history of falling. COUNTS INCLUDE 234 BEDS AT THE [facility] <LUZ ELENA Lockett - Last Filed: 12/30/21 20:21> COUNTS INCLUDE 234 BEDS AT THE [facility] Medical History (Updated 12/30/21 @ 20:21 by LUZ ELENA Lockett) Acute respiratory failure Asthma Bilateral carotid artery stenosis Chronic anemia Chronic diastolic CHF (congestive heart failure) Chronic kidney disease ESRD on peritoneal dialysis Essential hypertension GERD (gastroesophageal reflux disease) Glaucoma Hyperlipidemia Hyperparathyroidism, secondary renal Hypothyroidism Lichenification and lichen simplex chronicus Major depressive disorder Neurodermatitis Non-proliferative diabetic retinopathy, both eyes Nonobstructive atherosclerosis of coronary artery Normocytic anemia Nummular eczema Obesity 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) Recurrent syncope (03/28/21) Severe protein-calorie malnutrition Stage 3 chronic kidney disease Stenosis of left carotid artery Torsades de pointes (03/28/21) Transient visual loss, right eye (11/2020) Type II diabetes mellitus Ventricular tachycardia Vitamin B 12 deficiency Home Medications atorvastatin 80 mg tablet 80 mg PO QHS 10/12/18 [History Last Taken Unknown] omeprazole 40 mg capsule,delayed release 40 mg PO DAILY 10/12/18 [History Last Taken Unknown] albuterol sulfate 90 mcg/actuation aerosol inhaler 2 puff inhalation Q4H PRN shortness 10/13/18 [History Last Taken Unknown] calcitriol 0.25 mcg capsule 0.25 mcg PO .COMPLEX 10/26/19 [History Last Taken Unknown] latanoprost 0.005 % eye drops 1 drp ophthalmic (eye) BID 10/26/19 [History Last Taken Unknown] montelukast 10 mg tablet 10 mg PO DAILY 10/26/19 [History Last Taken Unknown] fluticasone propionate 110 mcg/actuation HFA aerosol inhaler (Flovent HFA) 1 puff inhalation BID 03/28/21 [History Last Taken Unknown] insulin glargine 100 unit/mL (3 mL) subcutaneous pen (Lantus Solostar U-100 Insulin) 8 unit subcut BID 03/28/21 [History Last Taken Unknown] pioglitazone 15 mg tablet 15 mg PO DAILY 03/28/21 [History Last Taken Unknown] diclofenac 1 % topical gel and kinesiology tape 1 ea topical DAILY PRN Pain 04/13/21 [History Last Taken Unknown] lidocaine 4 % topical patch 1 patch topical DAILY PRN Pain 04/13/21 [History Last Taken Unknown] polyethylene glycol 3350 17 gram oral powder packet 17 g PO DAILY 04/13/21 [History Last Taken Unknown] sennosides 8.6 mg tablet 8.6 mg PO BID 04/13/21 [History Last Taken Unknown] tiotropium bromide 2.5 mcg/actuation mist for inhalation (Spiriva Respimat) 2 puff inhalation QAM 04/13/21 [History Last Taken Unknown] acetaminophen 325 mg tablet 650 mg PO Q4H PRN pain/fever 05/10/21 [History Last Taken Unknown] bisacodyl 10 mg rectal suppository 10 mg [place] DAILY PRN Constipation 05/10/21 [History Last Taken Unknown] buspirone 5 mg tablet 5 mg PO BID 05/10/21 [History Last Taken Unknown] cyanocobalamin (vitamin B-12) 2,500 mcg sublingual tablet (Vitamin B-12) 2,500 mcg sublingual QWEEK 05/10/21 [History Last Taken Unknown] ergocalciferol (vitamin D2) 50,000 unit tablet 50,000 unit PO QWEEK 05/10/21 [History Last Taken Unknown] gentamicin 0.1 % topical cream 1 applic topical DAILY 05/10/21 [History Last Taken Unknown] insulin lispro 100 unit/mL subcutaneous pen 1 sliding scale dose subcut USEASDIRECTD 05/10/21 [History Last Taken Unknown] ipratropium 0.5 mg-albuterol 3 mg (2.5 mg base)/3 mL nebulization soln 3 ml inhalation Q6H PRN sob 05/10/21 [History Last Taken Unknown] levothyroxine 137 mcg tablet 137 mcg PO DAILY 05/10/21 [History Last Taken Unknown] potassium chloride 20 mEq tablet,extended release 20 meq PO DAILY 05/10/21 [History Last Taken Unknown] carvedilol 3.125 mg tablet (Coreg) 3.125 mg PO BID 30 days #60 tabs 07/26/21 [Rx Last Taken Unknown] cefuroxime axetil 500 mg tablet 500 mg PO .every other day 6 days 08/21/21 [Rx Last Taken Unknown] Allergy/AdvReac Type Severity Reaction Status Date / Time metformin [From Glucophage] Allergy Severe renal Verified 12/30/21 19:07 failure adhesive Allergy Intermediate blisters Verified 12/30/21 19:07 oxycodone Allergy Intermediate hallucinati Verified 12/30/21 19:07 ons tramadol Allergy Intermediate Vomiting Verified 12/30/21 19:07 ERIC Inhibitors AdvReac Intermediate cough Verified 12/30/21 19:07 Family History Father Heart disease Hypertension Suicide Mother Hypertension CVA (cerebral vascular accident) COPD (chronic obstructive pulmonary disease) CAD (coronary artery disease) Surgical History History of bilateral knee replacement (1989) History of breast biopsy History of implantable cardiac defibrillator (ICD) (04/02/21) History of left heart catheterization (03/28/21) History of open reduction and internal fixation (ORIF) procedure History of right cataract extraction (10/03/11) History of temporary cardiac pacemaker treatment (03/28/21) History of tonsillectomy Social History household members: none Smoking Status: Never smoker alcohol intake: never substance use type: does not use caffeine: Yes Type: coffee Number of servings: 2 ROS <LUZ ELENA Lockett - Last Filed: 12/30/21 20:21> ROS ED ROS Narrative Constitutional: Negative for fever, chills, weight loss, weakness Eyes: Negative for vision loss, vision change, double vision ENT: Negative for any sore throat, ear pain, congestion Cardiovascular: Negative for any chest pain, tightness, palpitations Respiratory: Negative for any cough, sputum production, hemoptysis, dyspnea, dyspnea on exertion, orthopnea Gastrointestinal: Negative for any abdominal pain, nausea, vomiting, diarrhea, constipation, blood in stool, blood in vomit : Negative for any urinary frequency, dysuria, retention, blood in urine Muscle skeletal: Negative for any muscle joint pain, stiffness, myalgias, arthralgias, back pain. Positive for neck pain, positive right arm pain, right leg Neurological: Negative for any headache, syncope, numbness or tingling, dizziness Skin: Negative for any rashes, lumps, itching, abrasions, lacerations Psychiatric: Negative for any depression, anxiety, stress, suicidal ideation, homicidal ideation Hematologic: Negative for any easy bruising, excessive bruising, easy bleeding Allergies: Negative for any eczema, hives, rash EXAM <LUZ ELENA Lockett - Last Filed: 12/30/21 20:21> Physical Exam Narrative Exam Narrative: Vital signs reviewed. HEET: Head normocephalic atraumatic, TMs clear bilaterally. Posterior pharynx is clear, moist mucous membranes. Nares clear bilaterally. Pupils are equal round react to light. Patient does have ecchymosis to the bridge of the nose, negative for any hematoma or septal hematoma. Neck: Supple with no lymphadenopathy. No signs of meningismus, negative jolt sign. Patient did have tenderness to the cervical spine. Cardiac: Regular rate and rhythm no murmurs gallops or rubs, equal peripheral pulses bilaterally. Respiratory: Lungs clear to auscultation bilaterally. No chest tenderness. Abdomen: Soft, nontender, nondistended. No abdominal bruit or pulsatile masses. No hepatosplenomegaly Extremities: Patient has a 5 cm x 3 cm avulsion wound to the right forearm. There is fat tissue exposed however it is more of an avulsion than laceration.. Active full range of motion of all extremities. Patient does have a 4 cm skin tear to the right anterior tibia. Neuro: Cranial nerves II through XII intact, no focal neurological deficits. Skin: Clean dry and intact with no rash, purpura, petechiae, vesicles or pustules. Backs/flank: No CVA tenderness, no midline spinal tenderness, no deformity. Psych: Normal mood and affect. No SI, HI or acute psychosis. Const Vital Signs: 12/30/21 19:07 12/30/21 19:10 Temperature 97.2 F L Temperature Source Temporal Pulse Rate 80 Respiratory Rate 15 Respiratory Effort Normal Non-Labored Respiratory Depth Normal Respiratory Pattern Normal Blood Pressure 124/52 H Blood Pressure Mean 76 Pulse Ox 94 Oxygen Delivery Method Room Air Room Air <Dr. Benji Guererro DO - Last Filed: 12/30/21 20:25> Physical Exam Const Vital Signs: 12/30/21 19:07 12/30/21 19:10 Temperature 97.2 F L Temperature Source Temporal Pulse Rate 80 Respiratory Rate 15 Respiratory Effort Normal Non-Labored Respiratory Depth Normal Respiratory Pattern Normal Blood Pressure 124/52 H Blood Pressure Mean 76 Pulse Ox 94 Oxygen Delivery Method Room Air Room Air MDM <LUZ ELENA Lockett - Last Filed: 12/30/21 20:21> MDM Radiography Diagnostic Testing: Clinical Impression(s) from Imaging Studies Brain CT 12/30/21 19:28 IMPRESSION: Chronic involutional changes of the brain. Electronically Signed: Aldo Abdullahi MD at 19:53 EDT Reading Location ID and State: [id number] / [employer] Tel , Service support , Cervical Spine CT 12/30/21 19:28 IMPRESSION: No acute fracture or subluxation. Electronically Signed: Aldo Abdullahi MD at 19:59 EDT Reading Location ID and State: [id number] / [employer] Tel , Service support , Forearm X-Ray 12/30/21 19:40 IMPRESSION: Normal x-ray examination of the radius and ulna. Suspect large laceration of the posterior lateral soft tissues of the mid forearm. Electronically Signed: Aldo Abdullahi MD at 19:56 EDT Reading Location ID and State: [id number] / [employer] Tel , Service support , Treatment and Re-Evaluation Narrative: Patient is alert and orient x4, patient is acting appropriate, patient's vital signs are stable, she appears nontoxic. Patient presents to the emergency department for mechanical fall. Patient does have a wound to her right forearm as well as a skin tear to the right stanton. Patient did receive CTs of the brain, cervical spine as well as x-rays of the right forearm. She did get updated on her tetanus vaccination today, as well as Tylenol 1000 mg by mouth. Patient's tetanus was up-to-date, patient did receive a CT scan of the brain which showed chronic involutional changes of the brain. Patient CT of the cervical spine showed no acute fracture or subluxation. Patient's x-ray of the right forearm showed a large laceration of the posterior lateral soft tissues of the mid forearm no osseous abnormality. Patient was given Tylenol 1000 mg. Patient had wound care to both the right leg, right arm. Wound care supplies given, patient was given strict return precaution. Patient was made aware that this will have to heal from the inside out. And will follow up outpatient. <Dr. Benji Guerrero, DO - Last Filed: 12/30/21 20:25> [facility] Narrative Medical decision making narrative: This patient was seen with a PA/CASE TECHNICIAN Individually assessed they patient including history and physical. I have reviewed everything on the chart that is available and agree with the documentation provided by the PA/CASE TECHNICIAN including discussion about the assessment, treatment plan, discussion, and return precautions. Patient with mechanical fall and skin tear avulsion to the right forearm. This is not amenable to sutures. This will be cleaned and dressed. She also has a superficial skin flap/tear over the right tibia which is amenable to Steri-Strips. X-rays of the right forearm are obtained and on my interpretation are acute fractures. Radiologist interprets this note reviewed. CT brain and cervical spine are negative. Patient denies anything for pain here in the ED. Patient continued to have patient feeling Wound Care Precautions. Impression: 1. Mechanical Fall 2. Skin Avulsion Right Forearm 3. Skin Avulsion Right Tibia 4. Cervical Strain Lab Data Attestation: I reviewed the patient's lab results. Radiography Diagnostic Testing: Clinical Impression(s) from Imaging Studies Brain CT 12/30/21 19:28 IMPRESSION: Chronic involutional changes of the brain. Electronically Signed: Aldo Abdullahi MD at 19:53 EDT , Cervical Spine CT 12/30/21 19:28 IMPRESSION: No acute fracture or subluxation. Electronically Signed: Aldo Abdullahi MD at 19:59 EDT , Forearm X-Ray 12/30/21 19:40 IMPRESSION: Normal x-ray examination of the radius and ulna. Suspect large laceration of the posterior lateral soft tissues of the mid forearm. Electronically Signed: Aldo Abdullahi MD at 19:56 EDT , Discharge Plan Triage Chief Complaint: Fall ED Midlevel Provider: Raul Ellis ED Provider: Benji Guerrero Dx/Rx/DC Orders Clinical Impression: Fall, Skin tear, Avulsion of skin Instructions: Falls Prevent Use Cane Walker, ED Skin Avulsion Prescriptions: No Action omeprazole 40 mg capsule,delayed release(DR/EC) 40 mg PO DAILY atorvastatin 80 mg tablet 80 mg PO QHS albuterol sulfate 90 mcg/actuation HFA aerosol inhaler 2 puff INHALATION Q4H PRN (Reason: shortness ) latanoprost 0.005 % drops 1 drp OPHTHALMIC BID cyanocobalamin (vitamin B-12) [Vitamin B-12] 2,500 mcg tablet, sublingual 2,500 mcg SUBLINGUAL QWEEK levothyroxine 137 mcg tablet 137 mcg PO DAILY Rx Instructions: Takes 1 tab daily except 1 1/2 tabs on Friday and Friday. calcitriol 0.25 mcg capsule 0.25 mcg PO .COMPLEX Rx Instructions: Take 0.25 mcg PO 5 days per week.; montelukast 10 mg tablet 10 mg PO DAILY diclofenac-kinesiology tape 1 % kit 1 ea topical DAILY PRN (Reason: Pain) lidocaine 4 % adhesive patch,medicated 1 patch topical DAILY PRN (Reason: Pain) polyethylene glycol 3350 17 gram powder in packet 17 g PO DAILY sennosides 8.6 mg tablet 8.6 mg PO BID Spiriva Respimat 2.5 mcg/actuation mist 2 puff inhalation QAM buspirone 5 mg tablet 5 mg PO BID ergocalciferol (vitamin D2) 50,000 unit tablet 50,000 unit PO QWEEK gentamicin 0.1 % cream 1 applic topical DAILY insulin lispro 100 unit/mL insulin pen 1 sliding scale dose subcut USEASDIRECTD potassium chloride 20 mEq tablet extended release 20 meq PO DAILY acetaminophen 325 mg tablet 650 mg PO Q4H PRN (Reason: pain/fever) bisacodyl 10 mg suppository 10 mg [place] DAILY PRN (Reason: Constipation) pioglitazone 15 mg Tablet 15 mg PO DAILY Flovent HFA 110 mcg/actuation HFA aerosol inhaler 1 puff INHALATION BID insulin glargine [Lantus Solostar U-100 Insulin] 100 unit/mL (3 mL) Insulin Pen 8 unit subcut BID ipratropium-albuterol 0.5 mg-3 mg(2.5 mg base)/3 mL solution for nebulization 3 ml INHALATION Q6H PRN (Reason: sob) carvedilol [Coreg] 3.125 mg tablet 3.125 mg PO BID 30 Days Qty: 60 0RF Hold Instructions: Resume on 08/24/21. Rx Instructions: must administer with a meal/food cefuroxime axetil 500 mg tablet 500 mg PO .every other day 6 Days 0RF Rx Instructions: take every other day 2/2 renal adjustment Primary Care Provider: Satnam Saldana Referrals: Satnam Saldana MD [Primary Care Provider] - Activity Restrictions/Additional Instructions: You will keep the right arm covered, you may wash with soap and water. Do not use hydrogen peroxide on any of the wounds. Please return for any signs of redness or infection. This will take time as it is healing from the inside out
== END 2021-12-30 20:37 | disposition home or self-care (01) ==
PROVIDERS: Emergency Provider Student in an Organized Health Care Education/Training Program; PCP Family Medicine; Visit Provider Student in an Organized Health Care Education/Training Program
DX: S51.801A Unspecified open wound of right forearm, initial encounter (principal); I13.2 Hypertensive heart and chronic kidney disease with heart failure and with stage 5 chronic kidney disease, or end stage renal disease; I50.32 Chronic diastolic (congestive) heart failure; E11.22 Type 2 diabetes mellitus with diabetic chronic kidney disease; N18.6 End stage renal disease; E78.5 Hyperlipidemia, unspecified; S10.93XA Contusion of unspecified part of neck, initial encounter; S16.1XXA Strain of muscle, fascia and tendon at neck level, initial encounter; S52.91XA Unspecified fracture of right forearm, initial encounter for closed fracture; W10.9XXA Fall (on) (from) unspecified stairs and steps, initial encounter; I25.10 Atherosclerotic heart disease of native coronary artery without angina pectoris; S00.93XA Contusion of unspecified part of head, initial encounter
CPT/HCPCS: 70450; 72125; 73090; 90715; 99284

== ENCOUNTER 2022-01-28 14:00 | Outpatient (RCR) | payer MEDICARE, SELFPAY ==
[2022-01-07 14:02] VITALS: BP 132/78; PULSE 78; TEMP 36.4
--- NOTE | 2022-01-07 16:10 | HP.PCM_ITS ---
History of Present Illness Date of Service: 01/07/22 Chief Complaint: Right forearm skin tear and left leg skin tear from a fall History of Wound: 81 year old female presents to the wound center for evaluation of her right forearm skin tear and right anterior leg skin tear that she obtained on 12/30/21 when she fell walking up steps. She went to the ED where x- rays and tetanus shot and they were told that her skin tears would heal. She has a history of End stage renal failure and she is on peritoneal dialysis at home. She also has DM type II, has a significant cardiac history with ICD placed, CHF, and debility. She lives at home and her family is helping to take care of her. Today she denies fever, chills, nausea and vomiting. She states her appetite is ok. Progress of Wound: Right anterior leg skin tear with some adherence. There is some compromise of skin on the lateral edge. Right forearm skin tear with a thick skin flap that was not place properly onto the deficit. It has been laying on good skin, which is macerated. Part of the edge of the flap is necrotic. The flap is too thick to remove in the wound center, unable to fold it back into place where it initially should have been placed. 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) Recurrent syncope (03/28/21) Severe protein-calorie malnutrition Stage 3 chronic kidney disease Stenosis of left carotid artery Torsades de pointes (03/28/21) Transient visual loss, right eye (11/2020) Type II diabetes mellitus Ventricular tachycardia Vitamin B 12 deficiency Home Medications atorvastatin 80 mg tablet 80 mg PO QHS 10/12/18 [History Last Taken Unknown] omeprazole 40 mg capsule,delayed release 40 mg PO DAILY 10/12/18 [History Last Taken Unknown] albuterol sulfate 90 mcg/actuation aerosol inhaler 2 puff inhalation Q4H PRN shortness 10/13/18 [History Last Taken Unknown] calcitriol 0.25 mcg capsule 0.25 mcg PO .COMPLEX 10/26/19 [History Last Taken Unknown] latanoprost 0.005 % eye drops 1 drp ophthalmic (eye) BID 10/26/19 [History Last Taken Unknown] montelukast 10 mg tablet 10 mg PO DAILY 10/26/19 [History Last Taken Unknown] fluticasone propionate 110 mcg/actuation HFA aerosol inhaler (Flovent HFA) 1 puff inhalation BID 03/28/21 [History Last Taken Unknown] insulin glargine 100 unit/mL (3 mL) subcutaneous pen (Lantus Solostar U-100 Insulin) 8 unit subcut BID 03/28/21 [History Last Taken Unknown] pioglitazone 15 mg tablet 15 mg PO DAILY 03/28/21 [History Last Taken Unknown] diclofenac 1 % topical gel and kinesiology tape 1 ea topical DAILY PRN Pain 04/13/21 [History Last Taken Unknown] lidocaine 4 % topical patch 1 patch topical DAILY PRN Pain 04/13/21 [History Last Taken Unknown] polyethylene glycol 3350 17 gram oral powder packet 17 g PO DAILY 04/13/21 [History Last Taken Unknown] sennosides 8.6 mg tablet 8.6 mg PO BID 04/13/21 [History Last Taken Unknown] tiotropium bromide 2.5 mcg/actuation mist for inhalation (Spiriva Respimat) 2 puff inhalation QAM 04/13/21 [History Last Taken Unknown] acetaminophen 325 mg tablet 650 mg PO Q4H PRN pain/fever 05/10/21 [History Last Taken Unknown] bisacodyl 10 mg rectal suppository 10 mg UT DAILY PRN Constipation 05/10/21 [History Last Taken Unknown] buspirone 5 mg tablet 5 mg PO BID 05/10/21 [History Last Taken Unknown] cyanocobalamin (vitamin B-12) 2,500 mcg sublingual tablet (Vitamin B-12) 2,500 mcg sublingual QWEEK 05/10/21 [History Last Taken Unknown] ergocalciferol (vitamin D2) 50,000 unit tablet 50,000 unit PO QWEEK 05/10/21 [History Last Taken Unknown] gentamicin 0.1 % topical cream 1 applic topical DAILY 05/10/21 [History Last Taken Unknown] insulin lispro 100 unit/mL subcutaneous pen 1 sliding scale dose subcut USEASDIRECTD 05/10/21 [History Last Taken Unknown] ipratropium 0.5 mg-albuterol 3 mg (2.5 mg base)/3 mL nebulization soln 3 ml inhalation Q6H PRN sob 05/10/21 [History Last Taken Unknown] levothyroxine 137 mcg tablet 137 mcg PO DAILY 05/10/21 [History Last Taken Unknown] potassium chloride 20 mEq tablet,extended release 20 meq PO DAILY 05/10/21 [History Last Taken Unknown] carvedilol 3.125 mg tablet (Coreg) 3.125 mg PO BID 30 days #60 tabs 07/26/21 [Rx Last Taken Unknown] cefuroxime axetil 500 mg tablet 500 mg PO .every other day 6 days 08/21/21 [Rx Last Taken Unknown] Allergy/AdvReac Type Severity Reaction Status Date / Time metformin [From Glucophage] Allergy Severe renal Verified 12/30/21 19:07 failure adhesive Allergy Intermediate blisters Verified 12/30/21 19:07 oxycodone Allergy Intermediate hallucinati Verified 12/30/21 19:07 ons tramadol Allergy Intermediate Vomiting Verified 12/30/21 19:07 ERIC Inhibitors AdvReac Intermediate cough Verified 12/30/21 19:07 Family History (Reviewed 01/13/22 @ 21:35 by Karyn Mittal TECHNICAL SERVICES MANAGER, TECHNICAL SERVICES MANAGER-C) Father Heart disease Hypertension Suicide Mother Hypertension CVA (cerebral vascular accident) COPD (chronic obstructive pulmonary disease) CAD (coronary artery disease) Surgical History (Reviewed 01/13/22 @ 21:35 by Karyn Mittal TECHNICAL SERVICES MANAGER, TECHNICAL SERVICES MANAGER-C) History of bilateral knee replacement (1989) History of breast biopsy History of implantable cardiac defibrillator (ICD) (04/02/21) History of left heart catheterization (03/28/21) History of open reduction and internal fixation (ORIF) procedure History of right cataract extraction (10/03/11) History of temporary cardiac pacemaker treatment (03/28/21) History of tonsillectomy Social History (Reviewed 01/13/22 @ 21:35 by Karyn Mittal TECHNICAL SERVICES MANAGER, TECHNICAL SERVICES MANAGER-C) household members: none Smoking Status: Never smoker alcohol intake: never substance use type: does not use caffeine: Yes Type: coffee Number of servings: 2 Vital Signs Vital Signs Vital Signs: 01/07/22 14:02 Temperature 97.6 F L Temperature Source Temporal Pulse Rate 78 Blood Pressure 132/78 H Blood Pressure Mean 96 Blood Pressure Source Monitor Blood Pressure Position Semi-Fowlers Blood Pressure Location Right Arm Physical Exam Const alert and oriented x3 General Appearance: well kempt Orientation / Consciousness: awake HEENT normocephalic Lymph Lymphatic: no lymphadenopathy noted Resp normal respiratory effort, normal air movement and clear to auscultation bilaterally Cardio regular rate and regular rhythm Peripheral Pulses: radial pulses present GI soft to palpation and non-tender Extremity normal capillary refill Extremity Narrative: Decreased mobility. Walks with a walker. Peripheral Pulses: Yes radial pulses present Skin Wound Narrative: Right anterior leg skin tear with some adherence. There is some compromise of skin on the lateral edge. Right forearm skin tear with a thick skin flap that was not place properly onto the deficit. It has been laying on good skin, which is macerated. Part of the edge of the flap is necrotic. The flap is too thick to remove in the wound center, unable to fold it back into place where it initially should have been placed. Neuro oriented x3 and moves all extremities Speech: speech normal Psych mental status grossly normal Debridement Note Debridement Note Wound debrided: anterior leg Laterality: Right Wound Grade/Stage: Stage II Type of Debridement: Excisional debridement Anesthesia Used: 5% Lidocaine Gel Depth: Down to and including healthy tissue and in the subcutaneous layer Percentage of wound debrided: 100 Instrument Used: 3mm curette and - (scissors and pickups) Tissue Removed: Devitalized tissue and slough Severity: Limited To Skin Breakdown Amount of bleeding with debridement: Mild Bleeding Controlled with: Compression and gauze Patient tolerated procedure: Patient tolerated procedure well Post-Debridement Measurements and Additional Note: Post-Debridement Measurements/Treatment KACI - Nurse 1 - General Ulcer Assessment Start: 01/07/22 13:56 Freq: Status: Active Protocol: HAFSA Activity Type Activity Date Activity User E-sign Co-sign Detail Recorded Client Recorded Date Recorded By Document 01/07/22 14:02 AMANDA [id number] 01/07/22 14:10 AMANDA 01/07/22 14:02 KACI - Today's Visit Information Type of service Initial Visit Arrival Mode Wheelchair Patient Identification Verified (Name & Yes ) Finger Stick Blood Sugar(mg/dl) (if 114 indicated): Blood Sugar Stated by Patient Vital Signs Temperature (97.8 F-99.1 F) 97.6 F L Temperature Source Temporal Pulse Rate (60-100) 78 Pulse Location Monitor Blood Pressure (90/60-120/80) 132/78 H Blood Pressure Mean 96 Source Monitor Position Semi-Fowlers Blood Pressure Location Right Arm History Since Last Visit- (Skip if this is Patient's initial visit) Have you changed medications since your No last visit? Any new allergies or adverse reactions No Had a fall/change in ADL's that may No increase risk of falls Signs or symptoms of abuse and/or No neglect since last visit Have you been in the hospital since your No last visit? Has dressing in place as prescribed No Has compression in place as prescribed N/A Has offloadiing in place as prescribed N/A Experienced any changes in pain level or No management Left Footwear Regular Shoe Right Footwear Regular Shoe Pain Scale: 0-10 Numeric Is Patient Pain Free? Yes WC - Nurse 1 - General Ulcer Measurement Start: 01/07/22 13:56 Freq: Status: Active Protocol: Activity Type Activity Date Activity User E-sign Co-sign Detail Recorded Client Recorded Date Recorded By Document 01/07/22 14:02 [id number] 01/07/22 14:10 AMANDA 01/07/22 14:02 Wound Center Nurse 1 #2 Right Arm -Current Size (cm) - Length 8.8 -Current Size (cm) - Width 10 -Current Size (cm) - Depth 0.4 -Total Square Cm 88.0 -Exudate Amt Medium -Exudate Type Serosanguineous -Wound Margin Distinct, Outline Attached -Granulation Amt Medium (34-66%) -Granulation Quality Pale,Red -Necrosis Amt Small (1-33%) -Necrotic Tissue Type Adherent Slough -Texture (Cinthia-wound Skin Appearance) Assessed, Scarring -Moisture (Cinthia-wound Skin Appearance) No Abnormality, Assessed -Color (Cinthia-wound Skin Appearance) No Abnormality, Assessed -Temperature (Cinthia-wound Skin No Abnormality Appearance) (Pt Warm) -Tenderness on Palpation (Cinthia-wound No Skin Appearance) -Ulcer Cleansing Rinsed/ Irrigated with Saline -Foul Odor after Cleansing No -Anesthetic Used 4% Lidocaine Solution #1 Right Self -Current Size (cm) - Length 8.8 -Current Size (cm) - Width 2.5 -Current Size (cm) - Depth 0.2 -Total Square Cm 22.00 -Exudate Amt Medium -Exudate Type Serosanguineous -Wound Margin Distinct, Outline Attached -Granulation Amt Small (1-33%) -Granulation Quality Pale,Red -Necrosis Amt None Present (0 %) -Texture (Cinthia-wound Skin Appearance) Assessed, Scarring -Moisture (Cinthia-wound Skin Appearance) No Abnormality, Assessed -Color (Cinthia-wound Skin Appearance) No Abnormality, Assessed -Temperature (Cinthia-wound Skin No Abnormality Appearance) (Pt Warm) -Tenderness on Palpation (Cinthia-wound No Skin Appearance) -Ulcer Cleansing Rinsed/ Irrigated with Saline -Foul Odor after Cleansing No -Anesthetic Used 4% Lidocaine Solution WC - Nurse 2 - General Ulcer CM Notes Start: 01/07/22 13:56 Freq: Status: Active Protocol: Activity Type Activity Date Activity User E-sign Co-sign Detail Recorded Client Recorded Date Recorded By Document 01/07/22 14:42 NICK [id number] 01/07/22 15:09 NICK 01/07/22 14:42 Wound Center Nurse 2 #2 Right Arm -Time 14:42 -Correct Patient Yes -Correct Side, Site, Position Yes -Correct Procedure Yes -Procedure Performed Yes -Type of Procedure Debridement -Clinical Debridement Subcutaneous -Tissue Removed Subcutaneous -Post Debridement (cm) - Length 6.4 -Post Debridement (cm) - Width 9.7 -Post Debridement (cm) - Depth 0.5 -Total Square (Post) (cm) 62.08 -Area of Debridement (cm) - Length 6.4 -Area of Debridement (cm) - Width 9.7 -Total Square (Area) (cm) 62.08 -Tunneling No -Undermining/Tunneling No -Circular Undermining No -Wound/Ulcer Outcome Not Healed -Ulcer Cleansing Rinsed/ Irrigated with Saline -Foul Odor after Cleansing No -Bioengineered Tissue No -Bleeding Controlled with Pressure -Treatment Response Procedure Tolerated Well -Offloading No -Assistive Device(s) Wheelchair -Debridement - Subq, 1st 20sq cm No #1 Right Self -Time 14:43 -Correct Patient Yes -Correct Side, Site, Position Yes -Correct Procedure Yes -Procedure Performed Yes -Type of Procedure Debridement -Clinical Debridement Subcutaneous -Tissue Removed Subcutaneous -Post Debridement (cm) - Length 9.0 -Post Debridement (cm) - Width 2.5 -Post Debridement (cm) - Depth 0.2 -Total Square (Post) (cm) 22.50 -Area of Debridement (cm) - Length 9.0 -Area of Debridement (cm) - Width 2.5 -Total Square (Area) (cm) 22.50 -Tunneling No -Undermining/Tunneling No -Circular Undermining No -Wound/Ulcer Outcome Not Healed -Ulcer Cleansing Rinsed/ Irrigated with Saline -Foul Odor after Cleansing No -Bioengineered Tissue No -Bleeding Controlled with Pressure -Treatment Response Procedure Tolerated Well -Offloading No -Debridement - Subq, 1st 20sq cm Yes -Debridement, SubQ, ea addt'l 20sq cm 4 or part thereof Pain Scale: 0-10 Numeric Is Patient Pain Free? Yes Additional Wound Wound debrided: forearm Laterality: Right Type of Debridement: Excisional debridement Anesthesia Used: 5% Lidocaine Gel and Cetacaine Depth: Down to and including healthy tissue and in the subcutaneous layer Percentage of wound debrided: 100 Instrument Used: 5mm curette and - (scissors and pick ups) Tissue Removed: Devitalized tissue and slough Severity: Fat Layer Exposed Amount of bleeding with debridement: Mild Bleeding Controlled with: Compression and gauze Patient tolerated procedure: Patient tolerated procedure well Charges/Coding Visit Charges Office Visits / Consults: 90036 OV L4 Est (25 modifier) Procedures Integumentary [id number]: [id number] Pascale subq tissue 20 sq cm/< Add On Codes: 67349 Pascale subq tissue add-on (x4) Assessment/Plan Assessment/Plan (1) Leg wound, right: CODE(S): S81.801A - Unspecified open wound, right lower leg, initial encounter (2) Open wound of right forearm: CODE(S): S51.801A - Unspecified open wound of right forearm, initial encounter (3) Type II diabetes mellitus: CODE(S): E11.9 - Type 2 diabetes mellitus without complications PLAN: Plan Patient evaluated at the wound center today. Wound care - Collagen hydrogel covered adaptic and topped with gauze on the right leg after washing with soap and water. Place silver alginate to the right forearm after washing with soap and water. On the right forearm, place gauze under the skin flap to prevent the maceration of the flap on healthy skin. Will consult Dr. Harris for possible operative debridement of her right forearm wound where the skin flap is not placed over the wound. Wound culture obtained of right forearm. Depending on the results of the culture, it may necessitate the need for treatment with antibiotics. Follow up one week. Greater than 25 minutes was spent assessing patient , plan of care, reviewing chart and discussing case with Dr. Harris.
[2022-01-14 13:09] VITALS: BP 128/78; PULSE 67; TEMP 36.1
--- NOTE | 2022-01-14 15:09 | PCM.WC.PN ---
History of Present Illness Date of Service: 01/14/22 Chief Complaint: Traumatic open wounds dorsal proximal right forearm and right anterior leg after a fall at home. History of Wound: 81 year old female presents to the wound center for evaluation of her right forearm skin tear and right anterior leg skin tear that she obtained on 12/30/21 when she fell walking up steps. She went to the ED where x-rays and tetanus shot and they were told that her skin tears would heal. She has a history of End stage renal failure and she is on peritoneal dialysis at home. She also has DM type II, has a significant cardiac history with ICD placed, CHF, and debility. She lives at home and her family is helping to take care of her. At her last visit on 01/07/22, a wound culture was done from the right forearm wound. It was positive for Staphylococcus lentus, MRSE, and possible fungus. She was started on Levaquin. Today she denies fever, chills, nausea and vomiting. She states her appetite is ok. Progress of Wound: Right anterior leg wound slowly improving. Right dorsal proximal forearm wound has migration of skin flap over adjacent skin with maceration and skin compromise. Objective Data Objective Data Vital Signs: Vital Signs Temp Pulse BP 97.0 F L 67 128/78 H 01/14/22 13:09 01/14/22 13:09 01/14/22 13:09 Lab / Micro Data Attestation: I reviewed the patient's lab results. Micro: Microbiology 01/07/22 Unknown Wound Abcess - Right Forearm Gram Stain - Final 01/07/22 Unknown Wound Abcess - Right Forearm Wound Culture - Preliminary Staphylococcus lentus Staphylococcus epidermidis Possible Fungus 01/07/22 Unknown Wound Abcess - Right Forearm Anaerobic Culture - Final No anaerobic bacteria isolated. Charges/Coding Procedures Integumentary 111xxx-113xx: 12361 Pascale subq tissue 20 sq cm/< (ICD-10 - S51.801A, S81.801A, A49.8, E11.9, N18.6, I50.32, Z95.810, W19.xxxA) Add On Codes: 11988 Pascale subq tissue add-on (X2 Units ICD-10 - S51.801A, S81.801A, A49.8, E11.9, N18.6, I50.32, Z95.810, W19.xxxA) Debridement Note Debridement Note Wound debrided: #1 Right anterior leg. Laterality: Right Wound Grade/Stage: 2. Type of Debridement: Excisional debridement Anesthesia Used: 5% Lidocaine Gel Depth: Down to and including healthy tissue and in the subcutaneous layer Percentage of wound debrided: 100 Instrument Used: 3mm curette Tissue Removed: subcutaneous tissue. Severity: Fat Layer Exposed Amount of bleeding with debridement: Mild Bleeding Controlled with: Pressure and Compression and gauze Patient tolerated procedure: Patient tolerated procedure well Post-Debridement Measurements and Additional Note: Post-Debridement Measurements/Treatment - Nurse 1 - General Ulcer Assessment Start: 01/07/22 13:56 Freq: Status: Active Protocol: HAFSA Activity Type Activity Date Activity User E-sign Co-sign Detail Recorded Client Recorded Date Recorded By Document 01/07/22 14:02 [id number] 01/07/22 14:10 KR Document 01/14/22 13:09 [id number] 01/14/22 13:12 KR 01/07/22 01/14/22 14:02 13:09 - Today's Visit Information Type of service Initial Visit Follow-up Visit (Physician/METAL SHAPING MACHINE OPERATOR ) Arrival Mode Wheelchair Wheelchair Patient Identification Verified (Name & Yes Yes ) Finger Stick Blood Sugar(mg/dl) (if 114 indicated): Blood Sugar Stated by Patient Vital Signs Temperature (97.8 F-99.1 F) 97.6 F L 97.0 F L Temperature Source Temporal Temporal Pulse Rate (60-100) 78 67 Pulse Location Monitor Monitor Blood Pressure (90/60-120/80) 132/78 H 128/78 H Blood Pressure Mean (mm Hg) 96 94 Source Monitor Monitor Position Semi-Fowlers Semi-Fowlers Blood Pressure Location Right Arm Right Arm History Since Last Visit- (Skip if this is Patient's initial visit) Have you changed medications since your No No last visit? Any new allergies or adverse reactions No No Had a fall/change in ADL's that may No No increase risk of falls Signs or symptoms of abuse and/or No No neglect since last visit Have you been in the hospital since your No No last visit? Has dressing in place as prescribed No Yes Has compression in place as prescribed N/A N/A Has offloading in place as prescribed N/A N/A Experienced any changes in pain level or No No management Left Footwear Regular Shoe Regular Shoe Right Footwear Regular Shoe Regular Shoe Pain Scale: 0-10 Numeric Is Patient Pain Free? Yes Yes WC - Nurse 1 - General Ulcer Measurement Start: 01/07/22 13:56 Freq: Status: Active Protocol: Activity Type Activity Date Activity User E-sign Co-sign Detail Recorded Client Recorded Date Recorded By Document 01/07/22 14:02 KR [id number] 01/07/22 14:10 KR Document 01/14/22 13:09 KR [id number] 01/14/22 13:12 KR 01/07/22 01/14/22 14:02 13:09 Wound Center Nurse 1 #2 Right Forearm -Current Size (cm) - Length 8.8 5.5 -Current Size (cm) - Width 10 9 -Current Size (cm) - Depth 0.4 0.3 -Total Square Cm 88.0 49.5 -Exudate Amt Medium Large -Exudate Type Serosanguineous Yellow/Green -Wound Margin Distinct, Distinct, Outline Outline Attached Attached -Granulation Amt Medium (34-66%) Medium (34-66%) -Granulation Quality Pale,Red Red -Necrosis Amt Small (1-33%) Medium (34-66%) -Necrotic Tissue Type Adherent Slough Adherent Slough -Texture (Cinthia-wound Skin Appearance) Assessed, Assessed, Scarring Scarring -Moisture (Cinthia-wound Skin Appearance) No Abnormality, No Abnormality, Assessed Assessed -Color (Cinthia-wound Skin Appearance) No Abnormality, No Abnormality, Assessed Assessed -Temperature (Cinthia-wound Skin No Abnormality No Abnormality Appearance) (Pt Warm) (Pt Warm) -Tenderness on Palpation (Cinthia-wound No No Skin Appearance) -Ulcer Cleansing Rinsed/ Rinsed/ Irrigated with Irrigated with Saline Saline -Foul Odor after Cleansing No No -Anesthetic Used 4% Lidocaine 4% Lidocaine Solution Solution #1 Right Anterior Leg -Current Size (cm) - Length 8.8 0.8 -Current Size (cm) - Width 2.5 0.2 -Current Size (cm) - Depth 0.2 0.3 -Total Square Cm 22.00 0.16 -Exudate Amt Medium Small -Exudate Type Serosanguineous Serosanguineous -Wound Margin Distinct, Distinct, Outline Outline Attached Attached -Granulation Amt Small (1-33%) Medium (34-66%) -Granulation Quality Pale,Red Pale -Necrosis Amt None Present (0 None Present (0 %) %) -Texture (Cinthia-wound Skin Appearance) Assessed, Assessed, Scarring Scarring -Moisture (Cinthia-wound Skin Appearance) No Abnormality, No Abnormality, Assessed Assessed -Color (Cinthia-wound Skin Appearance) No Abnormality, No Abnormality, Assessed Assessed -Temperature (Cinthia-wound Skin No Abnormality No Abnormality Appearance) (Pt Warm) (Pt Warm) -Tenderness on Palpation (Cinthia-wound No No Skin Appearance) -Ulcer Cleansing Rinsed/ Rinsed/ Irrigated with Irrigated with Saline Saline -Foul Odor after Cleansing No No -Anesthetic Used 4% Lidocaine 5% Lidocaine Solution Gel WC - Nurse 2 - General Ulcer CM Notes Start: 01/07/22 13:56 Freq: Status: Active Protocol: Activity Type Activity Date Activity User E-sign Co-sign Detail Recorded Client Recorded Date Recorded By Document 01/07/22 14:42 [id number] 01/07/22 15:09 Document 01/14/22 13:51 [id number] 01/14/22 14:18 01/07/22 01/14/22 14:42 13:51 Wound Center Nurse 2 #2 Right Forearm. -Time 14:42 13:51 -Correct Patient Yes Yes -Correct Side, Site, Position Yes Yes -Correct Procedure Yes Yes -Procedure Performed Yes Yes -Type of Procedure Debridement Debridement -Clinical Debridement Subcutaneous Subcutaneous -Tissue Removed Subcutaneous Subcutaneous -Post Debridement (cm) - Length 6.4 5.5 -Post Debridement (cm) - Width 9.7 8.6 -Post Debridement (cm) - Depth 0.5 0.4 -Total Square (Post) (cm) 62.08 47.30 -Area of Debridement (cm) - Length 6.4 5.5 -Area of Debridement (cm) - Width 9.7 8.6 -Total Square (Area) (cm) 62.08 47.30 -Tunneling No No -Undermining/Tunneling No No -Circular Undermining No No -Wound/Ulcer Outcome Not Healed Not Healed -Ulcer Cleansing Rinsed/ Rinsed/ Irrigated with Irrigated with Saline Saline -Foul Odor after Cleansing No No -Bioengineered Tissue No No -Bleeding Controlled with Pressure Pressure -Treatment Response Procedure Procedure Tolerated Well Tolerated Well -Offloading No No -Assistive Device(s) Wheelchair -Debridement - Subq, 1st 20sq cm No Yes -Debridement, SubQ, ea addt'l 20sq cm 2 or part thereof #1 Right Anterior Leg -Time 14:43 14:13 -Correct Patient Yes Yes -Correct Side, Site, Position Yes Yes -Correct Procedure Yes Yes -Procedure Performed Yes Yes -Type of Procedure Debridement Debridement -Clinical Debridement Subcutaneous Subcutaneous -Tissue Removed Subcutaneous Subcutaneous -Post Debridement (cm) - Length 9.0 7.5 -Post Debridement (cm) - Width 2.5 1.4 -Post Debridement (cm) - Depth 0.2 0.3 -Total Square (Post) (cm) 22.50 10.50 -Area of Debridement (cm) - Length 9.0 7.5 -Area of Debridement (cm) - Width 2.5 1.4 -Total Square (Area) (cm) 22.50 10.50 -Tunneling No No -Undermining/Tunneling No No -Circular Undermining No No -Wound/Ulcer Outcome Not Healed Not Healed -Ulcer Cleansing Rinsed/ Rinsed/ Irrigated with Irrigated with Saline Saline -Foul Odor after Cleansing No No -Bioengineered Tissue No No -Bleeding Controlled with Pressure Pressure -Treatment Response Procedure Procedure Tolerated Well Tolerated Well -Offloading No No -Debridement - Subq, 1st 20sq cm Yes No -Debridement, SubQ, ea addt'l 20sq cm 4 or part thereof Pain Scale: 0-10 Numeric Is Patient Pain Free? Yes Yes WC - Nurse 3 - General Ulcer D/C NN Start: 01/07/22 13:56 Freq: Status: Active Protocol: Activity Type Activity Date Activity User E-sign Co-sign Detail Recorded Client Recorded Date Recorded By Document 01/14/22 14:24 DL [id number] 01/14/22 14:26 DL 01/14/22 14:24 Wound Care Nurse 3 #2 Right Forearm. -Ulcer Cleansing Rinsed/ Irrigated with Saline -Foul Odor after Cleansing No -Primary Dressing Applied Aquacel AG 4x4 -Primary Dressing Covered/Secured with Dry Gauze & Roll Gauze, Secured with Tape -[place] AG 4x4 1 #1 Right Anterior Leg. -Ulcer Cleansing Rinsed/ Irrigated with Saline -Foul Odor after Cleansing No -Primary Dressing Applied C Hydrogel ($) -Primary Dressing Covered/Secured with Dry Gauze & Roll Gauze, Secured with Tape Treatment Response Procedure Tolerated Well Pain Scale: 0-10 Numeric Is Patient Pain Free? Yes WC - Visit Discharge Discharge Condition Stable Transportation Private Auto Additional Wound Wound debrided: #2 Dorsal proximal right forearm. Laterality: Right Wound Grade/Stage: 2. Type of Debridement: Excisional debridement Anesthesia Used: - (Xylocaine with epinephrine subcutaneous injection.) Depth: Down to and including healthy tissue and in the subcutaneous layer Percentage of wound debrided: 100 Instrument Used: #15 blade and Forceps Tissue Removed: Necrotic skin and subcutaneous tissue. Severity: Fat Layer Exposed Amount of bleeding with debridement: Mild Bleeding Controlled with: Pressure, Compression and gauze and Silver Nitrate Patient tolerated procedure: Patient tolerated procedure well Assessment/Plan Assessment/Plan (1) Open wound of right forearm: CODE(S): S51.801A - Unspecified open wound of right forearm, initial encounter (2) Leg wound, right: CODE(S): S81.801A - Unspecified open wound, right lower leg, initial encounter (3) Methicillin resistant Staphylococcus epidermidis infection: CODE(S): A49.8 - Other bacterial infections of unspecified site; Z16.29 - Resistance to other single specified antibiotic (4) ESRD on peritoneal dialysis: CODE(S): N18.6 - End stage renal disease; Z99.2 - Dependence on renal dialysis (5) Type II diabetes mellitus: CODE(S): E11.9 - Type 2 diabetes mellitus without complications (6) History of implantable cardiac defibrillator (ICD): CODE(S): Z95.810 - Presence of automatic (implantable) cardiac defibrillator (7) Chronic diastolic CHF (congestive heart failure): CODE(S): I50.32 - Chronic diastolic (congestive) heart failure (8) Fall as cause of accidental injury in home as place of occurrence: CODE(S): W19.XXXA - Unspecified fall, initial encounter; Y92.009 - Unspecified place in unspecified non-institutional (private) residence as the place of occurrence of the external cause PLAN: Plan Wound care - Collagen hydrogel covered adaptic and topped with gauze on the right anterior leg wound after washing with soap and water. Place silver alginate to the dorsal proximal right forearm wound after washing with soap and water. Wound culture from 01/07/22 showed Staphylococcus lentus and MRSE and possible fungus. She was started on Levaquin. Will order a separate fungal culture to confirm the presence of fungus before treatment. Encourage nutritional supplementation with protein to help the healing process. Discussed with the patient that if there is a plateau in the healing of the traumatic wounds, then we can consider placement of advanced skin substitute grafts such as Thera-Skin. Follow up one week.
[2022-01-21 15:20] VITALS: BP 131/59; PULSE 59; TEMP 35.7
--- NOTE | 2022-01-21 16:11 | PN.PCM_ITS ---
History of Present Illness Date of Service: 01/21/22 Chief Complaint: Traumatic open wounds dorsal proximal right forearm and right anterior leg after a fall at home. History of Wound: 81 year old female presents to the wound center for evaluation of her right forearm skin tear and right anterior leg skin tear that she obtained on 12/30/21 when she fell walking up steps. She went to the ED where x- rays and tetanus shot and they were told that her skin tears would heal. She has a history of End stage renal failure and she is on peritoneal dialysis at home. She also has DM type II, has a significant cardiac history with ICD placed, CHF, and debility. She lives at home and her family is helping to take care of her. At her last visit on 01/07/22, a wound culture was done from the right forearm wound. It was positive for Staphylococcus lentus, MRSE, and possible fungus. She was started on Levaquin. Today she denies fever, chills, nausea and vomiting. She states her appetite is ok. Progress of Wound: Right anterior leg wound is much smaller. Right dorsal proximal forearm wound has decreased in size and looks much better now that Dr. Harris removed the skin flap. The depth has really decreased and the alisha wound has improved. Her right arm does have +2 edema, that would benefit from some compression. Objective Data Objective Data Vital Signs: Vital Signs Temp Pulse BP 96.2 F L 59 L 131/59 H 01/21/22 15:20 01/21/22 15:20 01/21/22 15:20 Lab / Micro Data Micro: Microbiology 01/07/22 Unknown Wound Abcess - Right Forearm Gram Stain - Final 01/07/22 Unknown Wound Abcess - Right Forearm Wound Culture - Preliminary Staphylococcus lentus Staphylococcus epidermidis Possible Fungus 01/07/22 Unknown Wound Abcess - Right Forearm Anaerobic Culture - Final No anaerobic bacteria isolated. Charges/Coding Procedures Integumentary 111xxx-113xx: [id number] Pascale subq tissue 20 sq cm/< Add On Codes: 46332 Pascale subq tissue add-on (x1) Debridement Note Debridement Note Wound debrided: #1 Right anterior leg. Laterality: Right Wound Grade/Stage: Stage II Type of Debridement: Excisional debridement Anesthesia Used: 5% Lidocaine Gel Depth: Down to and including healthy tissue and in the subcutaneous layer Percentage of wound debrided: 100 Instrument Used: 3mm curette Tissue Removed: Subcutaneous tissue and slough Severity: Fat Layer Exposed Amount of bleeding with debridement: Mild Bleeding Controlled with: Pressure and Compression and gauze Patient tolerated procedure: Patient tolerated procedure well Post-Debridement Measurements and Additional Note: Post-Debridement Measurements/Treatment WC - Nurse 1 - General Ulcer Assessment Start: 01/07/22 13:56 Freq: Status: Active Protocol: HAFSA Activity Type Activity Date Activity User E-sign Co-sign Detail Recorded Client Recorded Date Recorded By Document 01/07/22 14:02 KR [id number] 01/07/22 14:10 KR Document 01/14/22 13:09 KR [id number] 01/14/22 13:12 KR Document 01/21/22 15:20 AK [id number] 01/21/22 15:23 AK 01/07/22 01/14/22 01/21/22 14:02 13:09 15:20 WC - Today's Visit Information Type of service Initial Visit Follow-up Visit Follow-up Visit (Physician/ION IMPLANT MACHINE OPERATOR (Physician/ION IMPLANT MACHINE OPERATOR ) ) Arrival Mode Wheelchair Wheelchair Wheelchair Patient Identification Verified (Name & Yes Yes Yes ) Patient Requires Transmission-Based No Precautions Safety Precautions NA Finger Stick Blood Sugar(mg/dl) (if 114 indicated): Blood Sugar Stated by Patient Vital Signs Temperature (97.8 F-99.1 F) 97.6 F L 97.0 F L 96.2 F L Temperature Source Temporal Temporal Temporal Pulse Rate (60-100) 78 67 59 L Pulse Location Monitor Monitor Monitor Blood Pressure (90/60-120/80) 132/78 H 128/78 H 131/59 H Blood Pressure Mean (mm Hg) 96 94 83 Source Monitor Monitor Monitor Position Semi-Fowlers Semi-Fowlers Blood Pressure Location Right Arm Right Arm History Since Last Visit- (Skip if this is Patient's initial visit) Have you changed medications since your No No No last visit? Any new allergies or adverse reactions No No No Had a fall/change in ADL's that may No No No increase risk of falls Signs or symptoms of abuse and/or No No No neglect since last visit Have you been in the hospital since your No No No last visit? Has dressing in place as prescribed No Yes No Has compression in place as prescribed N/A N/A Yes Has offloadiing in place as prescribed N/A N/A N/A Experienced any changes in pain level or No No No management Left Footwear Regular Shoe Regular Shoe Regular Shoe Right Footwear Regular Shoe Regular Shoe Regular Shoe Pain Scale: 0-10 Numeric Is Patient Pain Free? Yes Yes Yes WC - Nurse 1 - General Ulcer Measurement Start: 01/07/22 13:56 Freq: Status: Active Protocol: Activity Type Activity Date Activity User E-sign Co-sign Detail Recorded Client Recorded Date Recorded By Document 01/07/22 14:02 KR [id number] 01/07/22 14:10 KR Document 01/14/22 13:09 KR [id number] 01/14/22 13:12 KR Document 01/21/22 15:20 AK [id number] 01/21/22 15:23 AK 01/07/22 01/14/22 01/21/22 14:02 13:09 15:20 Wound Center Nurse 1 #2 Right Arm -Combined with other wound No -Current Size (cm) - Length 8.8 5.5 4 -Current Size (cm) - Width 10 9 6.5 -Current Size (cm) - Depth 0.4 0.3 0.1 -Total Square Cm 88.0 49.5 26.0 -Photo Taken Yes -Tunneling No -Undermining/Tunneling No -Circular Undermining No -Change in Wound Grade/Stage No -Exudate Amt Medium Large Medium -Exudate Type Serosanguineous Yellow/Green Serosanguineous -Wound Margin Distinct, Distinct, Distinct, Outline Outline Outline Attached Attached Attached -Granulation Amt Medium (34-66%) Medium (34-66%) Small (1-33%) -Granulation Quality Pale,Red Red N/A -Slough/Fibrin Yes -Necrosis Amt Small (1-33%) Medium (34-66%) Small (1-33%) -Necrotic Tissue Type Adherent Slough Adherent Slough Adherent Slough -Structure Exposed N/A -Texture (Alisha-wound Skin Appearance) Assessed, Assessed, Assessed, Scarring Scarring Excoriation -Moisture (Alisha-wound Skin Appearance) No Abnormality, No Abnormality, Assessed Assessed -Color (Alisha-wound Skin Appearance) No Abnormality, No Abnormality, No Abnormality, Assessed Assessed Assessed -Temperature (Alisha-wound Skin No Abnormality No Abnormality No Abnormality Appearance) (Pt Warm) (Pt Warm) (Pt Warm) -Tenderness on Palpation (Alisha-wound No No No Skin Appearance) -Ulcer Cleansing Rinsed/ Rinsed/ Rinsed/ Irrigated with Irrigated with Irrigated with Saline Saline Saline -Foul Odor after Cleansing No No No -Anesthetic Used 4% Lidocaine 4% Lidocaine 4% Lidocaine Solution Solution Solution,5% Lidocaine Gel #1 Right Self -Combined with other wound No -Current Size (cm) - Length 8.8 0.8 4.5 -Current Size (cm) - Width 2.5 0.2 0.5 -Current Size (cm) - Depth 0.2 0.3 0.1 -Total Square Cm 22.00 0.16 2.25 -Photo Taken Yes -Tunneling No -Undermining/Tunneling No -Circular Undermining No -Change in Wound Grade/Stage No -Exudate Amt Medium Small Small -Exudate Type Serosanguineous Serosanguineous Serosanguineous -Wound Margin Distinct, Distinct, Distinct, Outline Outline Outline Attached Attached Attached -Granulation Amt Small (1-33%) Medium (34-66%) None Present (0 %) -Granulation Quality Pale,Red Pale N/A -Slough/Fibrin No -Necrosis Amt None Present (0 None Present (0 Small (1-33%) %) %) -Necrotic Tissue Type Adherent Slough -Structure Exposed N/A -Texture (Alisha-wound Skin Appearance) Assessed, Assessed, No Abnormality, Scarring Scarring Assessed -Moisture (Alisha-wound Skin Appearance) No Abnormality, No Abnormality, No Abnormality, Assessed Assessed Assessed -Color (Ailsha-wound Skin Appearance) No Abnormality, No Abnormality, No Ab normality, Assessed Assessed Assessed -Temperature (Alisha-wound Skin No Abnormality No Abnormality No Abnormality Appearance) (Pt Warm) (Pt Warm) (Pt Warm) -Tenderness on Palpation (Alisha-wound No No No Skin Appearance) -Ulcer Cleansing Rinsed/ Rinsed/ Rinsed/ Irrigated with Irrigated with Irrigated with Saline Saline Saline -Foul Odor after Cleansing No No No -Anesthetic Used 4% Lidocaine 5% Lidocaine 5% Lidocaine Solution Gel Gel WC - Nurse 2 - General Ulcer CM Notes Start: 01/07/22 13:56 Freq: Status: Active Protocol: Activity Type Activity Date Activity User E-sign Co-sign Detail Recorded Client Recorded Date Recorded By Document 01/07/22 14:42 [id number] 01/07/22 15:09 Document 01/14/22 13:51 [id number] 01/14/22 14:18 Document 01/21/22 15:31 [id number] 01/21/22 15:43 01/07/22 01/14/22 01/21/22 14:42 13:51 15:31 Wound Center Nurse 2 #2 Right Arm -Time 14:42 13:51 15:31 -Correct Patient Yes Yes Yes -Correct Side, Site, Position Yes Yes Yes -Correct Procedure Yes Yes Yes -Procedure Performed Yes Yes Yes -Type of Procedure Debridement Debridement Debridement -Clinical Debridement Subcutaneous Subcutaneous Subcutaneous -Tissue Removed Subcutaneous Subcutaneous Subcutaneous -Post Debridement (cm) - Length 6.4 5.5 4.8 -Post Debridement (cm) - Width 9.7 8.6 6.7 -Post Debridement (cm) - Depth 0.5 0.4 0.3 -Total Square (Post) (cm) 62.08 47.30 32.16 -Area of Debridement (cm) - Length 6.4 5.5 4.8 -Area of Debridement (cm) - Width 9.7 8.6 6.7 -Total Square (Area) (cm) 62.08 47.30 32.16 -Tunneling No No No -Undermining/Tunneling No No No -Circular Undermining No No No -Wound/Ulcer Outcome Not Healed Not Healed Not Healed -Ulcer Cleansing Rinsed/ Rinsed/ Rinsed/ Irrigated with Irrigated with Irrigated with Saline Saline Saline -Foul Odor after Cleansing No No No -Bioengineered Tissue No No No -Bleeding Controlled with Pressure Pressure Pressure -Treatment Response Procedure Procedure Procedure Tolerated Well Tolerated Well Tolerated Well -Offloading No No No -Assistive Device(s) Wheelchair -Debridement - Subq, 1st 20sq cm No Yes Yes -Debridement, SubQ, ea addt'l 20sq cm 2 1 or part thereof #1 Right Self -Time 14:43 14:13 15:32 -Correct Patient Yes Yes Yes -Correct Side, Site, Position Yes Yes Yes -Correct Procedure Yes Yes Yes -Procedure Performed Yes Yes Yes -Type of Procedure Debridement Debridement Debridement -Clinical Debridement Subcutaneous Subcutaneous Subcutaneous -Tissue Removed Subcutaneous Subcutaneous Subcutaneous -Post Debridement (cm) - Length 9.0 7.5 6.4 -Post Debridement (cm) - Width 2.5 1.4 1.2 -Post Debridement (cm) - Depth 0.2 0.3 0.1 -Total Square (Post) (cm) 22.50 10.50 7.68 -Area of Debridement (cm) - Length 9.0 7.5 6.4 -Area of Debridement (cm) - Width 2.5 1.4 1.2 -Total Square (Area) (cm) 22.50 10.50 7.68 -Tunneling No No No -Undermining/Tunneling No No No -Circular Undermining No No No -Wound/Ulcer Outcome Not Healed Not Healed Not Healed -Ulcer Cleansing Rinsed/ Rinsed/ Rinsed/ Irrigated with Irrigated with Irrigated with Saline Saline Saline -Foul Odor after Cleansing No No No -Bioengineered Tissue No No No -Bleeding Controlled with Pressure Pressure Pressure -Treatment Response Procedure Procedure Procedure Tolerated Well Tolerated Well Tolerated Well -Offloading No No -Debridement - Subq, 1st 20sq cm Yes No No -Debridement, SubQ, ea addt'l 20sq cm 4 or part thereof Pain Scale: 0-10 Numeric Is Patient Pain Free? Yes Yes Yes - Nurse 3 - General Ulcer D/C NN Start: 01/07/22 13:56 Freq: Status: Active Protocol: Activity Type Activity Date Activity User E-sign Co-sign Detail Recorded Client Recorded Date Recorded By Document 01/14/22 14:24 [id number] 01/14/22 14:26 DL Document 01/21/22 16:08 [id number] 01/21/22 16:10 DL 01/14/22 01/21/22 14:24 16:08 Wound Care Nurse 3 #2 Right Arm -Ulcer Cleansing Rinsed/ Soap and Water Irrigated with Saline -Foul Odor after Cleansing No No -Negative Pressure Wound Therapy N/A -Primary Dressing Applied Aquacel AG 4x4 Aquacel AG 4x4, NonAdherent Contact Layer -Primary Dressing Covered/Secured with Dry Gauze & Dry Gauze & Roll Gauze, Roll Gauze, Secured with Secured with Tape Tape -Other Covering tubigrip -Aquacel AG 4x4 1 1 #1 Right Eslf -Ulcer Cleansing Rinsed/ Soap and Water Irrigated with Saline -Foul Odor after Cleansing No No -Primary Dressing Applied C Hydrogel ($) C Hydrogel ($), NonAdherent Contact Layer -Primary Dressing Covered/Secured with Dry Gauze & Dry Gauze & Roll Gauze, Roll Gauze, Secured with Secured with Tape Tape Left -Tubular Bandage Single Layer -Size of Tubigrip Used Size E -Size E ($) 1 Treatment Response Procedure Procedure Tolerated Well Tolerated Well Pain Scale: 0-10 Numeric Is Patient Pain Free? Yes Yes WC - Visit Discharge Discharge Condition Stable Stable Ambulatory Status Wheelchair Transportation Private Auto Private Auto Accompanied by family Additional Wound Wound debrided: #2 Dorsal proximal right forearm. Laterality: Right Wound Grade/Stage: Stage II Type of Debridement: Excisional debridement Anesthesia Used: - (Xylocaine with epinephrine subcutaneous injection.) Depth: Down to and including healthy tissue and in the subcutaneous layer Percentage of wound debrided: 100 Instrument Used: 5mm curette Tissue Removed: Subcutaneous tissue and slough. Severity: Fat Layer Exposed Amount of bleeding with debridement: Mild Bleeding Controlled with: Pressure, Compression and gauze and Silver Nitrate Patient tolerated procedure: Patient tolerated procedure well Assessment/Plan Assessment/Plan (1) Skin tear of right upper extremity: CODE(S): S41.111A - Laceration without foreign body of right upper arm, initial encounter (2) Noninfected skin tear of right leg: CODE(S): S81.811A - Laceration without foreign body, right lower leg, initial encounter QUALIFIERS: Encounter type: initial encounter Qualified Code(s): S81.811A - Laceration without foreign body, right lower leg, initial encounter (3) Open wound of right forearm: CODE(S): S51.801A - Unspecified open wound of right forearm, initial encounter QUALIFIERS: Encounter type: initial encounter Qualified Code(s): S51.801A - Unspecified open wound of right forearm, initial encounter (4) Leg wound, right: CODE(S): S81.801A - Unspecified open wound, right lower leg, initial enco unter QUALIFIERS: Encounter type: initial encounter Qualified Code(s): S81.801A - Unspecified open wound, right lower leg, initial encounter (5) Methicillin resistant Staphylococcus epidermidis infection: CODE(S): A49.8 - Other bacterial infections of unspecified site; Z16.29 - Resistance to other single specified antibiotic (6) ESRD on peritoneal dialysis: CODE(S): N18.6 - End stage renal disease; Z99.2 - Dependence on renal dialysis (7) Type II diabetes mellitus: CODE(S): E11.9 - Type 2 diabetes mellitus without complications (8) History of implantable cardiac defibrillator (ICD): CODE(S): Z95.810 - Presence of automatic (implantable) cardiac defibrillator (9) Chronic diastolic CHF (congestive heart failure): CODE(S): I50.32 - Chronic diastolic (congestive) heart failure (10) Fall as cause of accidental injury in home as place of occurrence: CODE(S): W19.XXXA - Unspecified fall, initial encounter; Y92.009 - Unspecified place in unspecified non-institutional (private) residence as the place of occurrence of the external cause PLAN: Plan Wound care - Collagen hydrogel covered adaptic and topped with gauze on the right anterior leg wound daily after washing with soap and water. Place moistened silver alginate and cover with gauze daily to the dorsal proximal right forearm wound after washing with soap and water. Compression will be a single layer tubigrip to both her right arm and her right leg. This should help decrease her swelling and help keep her incision in place. Encouraged to elevate her right arm when sitting to help decrease her edema. Wound culture from 01/07/22 showed Staphylococcus lentus and MRSE and possible fungus. She was started on Levaquin. Will order a separate fungal culture to confirm the presence of fungus before treatment. Encourage nutritional supplementation with protein to help the healing process. Discussed with the patient that if there is a plateau in the healing of the traumatic wounds, then we can consider placement of advanced skin substitute grafts such as Thera-Skin. Follow up one week.
[2022-01-28 14:06] VITALS: BP 145/59; PULSE 86; RESP 18; TEMP 136; TEMP 57.7
--- NOTE | 2022-01-28 15:02 | PCM.WC.PN ---
History of Present Illness Date of Service: 01/28/22 Chief Complaint: Traumatic open wounds dorsal proximal right forearm and right anterior leg after a fall at home. History of Wound: 81 year old female presents to the wound center for evaluation of her right forearm skin tear and right anterior leg skin tear that she obtained on 12/30/21 when she fell walking up steps. She went to the ED where x-rays and tetanus shot and they were told that her skin tears would heal. She has a history of End stage renal failure and she is on peritoneal dialysis at home. She also has DM type II, has a significant cardiac history with ICD placed, CHF, and debility. She lives at home and her family is helping to take care of her. At her last visit on 01/07/22, a wound culture was done from the right forearm wound. It was positive for Staphylococcus lentus, MRSE, and possible fungus. She was started on Levaquin. Today she denies fever, chills, nausea and vomiting. She states her appetite is ok. Progress of Wound: Right anterior leg wound is much smaller. Right dorsal proximal forearm wound has decreased in sized and depth. Her right arm has +1 non pitting edema, she has been wearing compression. Objective Data Objective Data Vital Signs: Vital Signs Temp Pulse Resp BP 136 F H 86 18 145/59 H 01/28/22 14:06 01/28/22 14:06 01/28/22 14:06 01/28/22 14:06 Lab / Micro Data Micro: Microbiology 01/07/22 Unknown Wound Abcess - Right Forearm Gram Stain - Final 01/07/22 Unknown Wound Abcess - Right Forearm Wound Culture - Final Staphylococcus lentus Staphylococcus epidermidis Curvularia species 01/07/22 Unknown Wound Abcess - Right Forearm Anaerobic Culture - Final No anaerobic bacteria isolated. Charges/Coding Procedures Integumentary 111xxx-113xx: 11021 Pascale subq tissue 20 sq cm/< Add On Codes: 24673 Pascale subq tissue add-on Debridement Note Debridement Note Wound debrided: #1 Right anterior leg. Laterality: Right Wound Grade/Stage: Stage II Type of Debridement: Excisional debridement Anesthesia Used: 5% Lidocaine Gel Depth: Down to and including healthy tissue and in the subcutaneous layer Percentage of wound debrided: 100 Instrument Used: 3mm curette Tissue Removed: Subcutaneous tissue and slough Severity: Fat Layer Exposed Amount of bleeding with debridement: Mild Bleeding Controlled with: Pressure and Compression and gauze Patient tolerated procedure: Patient tolerated procedure well Post-Debridement Measurements and Additional Note: Post-Debridement Measurements/Treatment WC - Nurse 1 - General Ulcer Assessment Start: 01/07/22 13:56 Freq: Status: Active Protocol: HAFSA Activity Type Activity Date Activity User E-sign Co-sign Detail Recorded Client Recorded Date Recorded By Document 01/07/22 14:02 KR [id number] 01/07/22 14:10 KR Document 01/14/22 13:09 KR [id number] 01/14/22 13:12 KR Document 01/21/22 15:20 AK [id number] 01/21/22 15:23 AK Document 01/28/22 14:06 DL [id number] 01/28/22 14:09 DL 01/07/22 01/14/22 01/21/22 14:02 13:09 15:20 WC - Today's Visit Information Type of service Initial Visit Follow-up Visit Follow-up Visit (Physician/EARLY YEARS TEACHER (Physician/EARLY YEARS TEACHER ) ) Arrival Mode Wheelchair Wheelchair Wheelchair Transfer Assistance Patient Identification Verified (Name & Yes Yes Yes ) Patient Requires Transmission-Based No Precautions Safety Precautions NA Finger Stick Blood Sugar(mg/dl) (if 114 indicated): Blood Sugar Stated by Patient Vital Signs Temperature (97.8 F-99.1 F) 97.6 F L 97.0 F L 96.2 F L Temperature Source Temporal Temporal Temporal Pulse Rate (60-100) 78 67 59 L Pulse Location Monitor Monitor Monitor Respiratory Rate (12-18) Respiratory rate source Blood Pressure (90/60-120/80) 132/78 H 128/78 H 131/59 H Blood Pressure Mean (mm Hg) 96 94 83 Source Monitor Monitor Monitor Position Semi-Fowlers Semi-Fowlers Blood Pressure Location Right Arm Right Arm History Since Last Visit- (Skip if this is Patient's initial visit) Have you changed medications since your No No No last visit? Any new allergies or adverse reactions No No No Had a fall/change in ADL's that may No No No increase risk of falls Signs or symptoms of abuse and/or No No No neglect since last visit Have you been in the hospital since your No No No last visit? Has dressing in place as prescribed No Yes No Has compression in place as prescribed N/A N/A Yes Has offloadiing in place as prescribed N/A N/A N/A Experienced any changes in pain level or No No No management Left Footwear Regular Shoe Regular Shoe Regular Shoe Right Footwear Regular Shoe Regular Shoe Regular Shoe Pain Scale: 0-10 Numeric Is Patient Pain Free? Yes Yes Yes 01/28/22 14:06 WC - Today's Visit Information Type of service Follow-up Visit (Physician/EARLY YEARS TEACHER ) Arrival Mode Ambulatory, Wheelchair Transfer Assistance None Patient Identification Verified (Name & Yes ) Patient Requires Transmission-Based No Precautions Safety Precautions Finger Stick Blood Sugar(mg/dl) (if indicated): Blood Sugar Vital Signs Temperature (97.8 F-99.1 F) 136 F H Temperature Source Temporal Pulse Rate (60-100) 86 Pulse Location Monitor Respiratory Rate (12-18) 18 Respiratory rate source Observation Blood Pressure (90/60-120/80) 145/59 H Blood Pressure Mean (mm Hg) 87 Source Monitor Position Blood Pressure Location History Since Last Visit- (Skip if this is Patient's initial visit) Have you changed medications since your No last visit? Any new allergies or adverse reactions No Had a fall/change in ADL's that may No increase risk of falls Signs or symptoms of abuse and/or No neglect since last visit Have you been in the hospital since your No last visit? Has dressing in place as prescribed Yes Has compression in place as prescribed N/A Has offloadiing in place as prescribed N/A Experienced any changes in pain level or No management Left Footwear Right Footwear Pain Scale: 0-10 Numeric Is Patient Pain Free? Yes - Nurse 1 - General Ulcer Measurement Start: 01/07/22 13:56 Freq: Status: Active Protocol: Activity Type Activity Date Activity User E-sign Co-sign Detail Recorded Client Recorded Date Recorded By Document 01/07/22 14:02 KR [id number] 01/07/22 14:10 KR Document 01/14/22 13:09 KR [id number] 01/14/22 13:12 KR Document 01/21/22 15:20 AK [id number] 01/21/22 15:23 AK Document 01/28/22 14:06 DL [id number] 01/28/22 14:09 DL 01/07/22 01/14/22 01/21/22 14:02 13:09 15:20 Wound Center Nurse 1 #2 Right Arm -Combined with other wound No -Current Size (cm) - Length 8.8 5.5 4 -Current Size (cm) - Width 10 9 6.5 -Current Size (cm) - Depth 0.4 0.3 0.1 -Total Square Cm 88.0 49.5 26.0 -Photo Taken Yes -Tunneling No -Undermining/Tunneling No -Circular Undermining No -Change in Wound Grade/Stage No -Exudate Amt Medium Large Medium -Exudate Type Serosanguineous Yellow/Green Serosanguineous -Wound Margin Distinct, Distinct, Distinct, Outline Outline Outline Attached Attached Attached -Granulation Amt Medium (34-66%) Medium (34-66%) Small (1-33%) -Granulation Quality Pale,Red Red N/A -Slough/Fibrin Yes -Necrosis Amt Small (1-33%) Medium (34-66%) Small (1-33%) -Necrotic Tissue Type Adherent Slough Adherent Slough Adherent Slough -Structure Exposed N/A -Texture (Cinthia-wound Skin Appearance) Assessed, Assessed, Assessed, Scarring Scarring Excoriation -Moisture (Cinthia-wound Skin Appearance) No Abnormality, No Abnormality, Assessed Assessed -Color (Cinthia-wound Skin Appearance) No Abnormality, No Abnormality, No Abnormality, Assessed Assessed Assessed -Temperature (Cinthia-wound Skin No Abnormality No Abnormality No Abnormality Appearance) (Pt Warm) (Pt Warm) (Pt Warm) -Tenderness on Palpation (Cinthia-wound No No No Skin Appearance) -Ulcer Cleansing Rinsed/ Rinsed/ Rinsed/ Irrigated with Irrigated with Irrigated with Saline Saline Saline -Foul Odor after Cleansing No No No -Anesthetic Used 4% Lidocaine 4% Lidocaine 4% Lidocaine Solution Solution Solution,5% Lidocaine Gel #1 Right Self -Combined with other wound No -Current Size (cm) - Length 8.8 0.8 4.5 -Current Size (cm) - Width 2.5 0.2 0.5 -Current Size (cm) - Depth 0.2 0.3 0.1 -Total Square Cm 22.00 0.16 2.25 -Photo Taken Yes -Tunneling No -Undermining/Tunneling No -Circular Undermining No -Change in Wound Grade/Stage No -Exudate Amt Medium Small Small -Exudate Type Serosanguineous Serosanguineous Serosanguineous -Wound Margin Distinct, Distinct, Distinct, Outline Outline Outline Attached Attached Attached -Granulation Amt Small (1-33%) Medium (34-66%) None Present (0 %) -Granulation Quality Pale,Red Pale N/A -Slough/Fibrin No -Necrosis Amt None Present (0 None Present (0 Small (1-33%) %) %) -Necrotic Tissue Type Adherent Slough -Structure Exposed N/A -Texture (Cinthia-wound Skin Appearance) Assessed, Assessed, No Abnormality, Scarring Scarring Assessed -Moisture (Cinthia-wound Skin Appearance) No Abnormality, No Abnormality, No Abnormality, Assessed Assessed Assessed -Color (Cinthia-wound Skin Appearance) No Abnormality, No Abnormality, No Abnormality, Assessed Assessed Assessed -Temperature (Cinthia-wound Skin No Abnormality No Abnormality No Abnormality Appearance) (Pt Warm) (Pt Warm) (Pt Warm) -Tenderness on Palpation (Cinthia-wound No No No Skin Appearance) -Ulcer Cleansing Rinsed/ Rinsed/ Rinsed/ Irrigated with Irrigated with Irrigated with Saline Saline Saline -Foul Odor after Cleansing No No No -Anesthetic Used 4% Lidocaine 5% Lidocaine 5% Lidocaine Solution Gel Gel 01/28/22 14:06 Wound Center Nurse 1 #2 Right Arm -Combined with other wound -Current Size (cm) - Length 3 -Current Size (cm) - Width 6 -Current Size (cm) - Depth 0.1 -Total Square Cm 18 -Photo Taken Yes -Tunneling -Undermining/Tunneling -Circular Undermining -Change in Wound Grade/Stage -Exudate Amt Medium -Exudate Type Serosanguineous -Wound Margin Distinct, Outline Attached -Granulation Amt Large (67-100%) -Granulation Quality [place],Red -Slough/Fibrin -Necrosis Amt None Present (0 %) -Necrotic Tissue Type -Structure Exposed N/A -Texture (Cinthia-wound Skin Appearance) Scarring -Moisture (Cinthia-wound Skin Appearance) No Abnormality -Color (Cinthia-wound Skin Appearance) No Abnormality -Temperature (Cinthia-wound Skin No Abnormality Appearance) (Pt Warm) -Tenderness on Palpation (Cinthia-wound No Skin Appearance) -Ulcer Cleansing Soap and Water -Foul Odor after Cleansing No -Anesthetic Used 5% Lidocaine Gel #1 Right Self -Combined with other wound -Current Size (cm) - Length 2.2 -Current Size (cm) - Width 0.5 -Current Size (cm) - Depth 0.1 -Total Square Cm 1.10 -Photo Taken Yes -Tunneling -Undermining/Tunneling -Circular Undermining -Change in Wound Grade/Stage -Exudate Amt Small -Exudate Type -Wound Margin Distinct, Outline Attached -Granulation Amt Small (1-33%) -Granulation Quality [place] -Slough/Fibrin -Necrosis Amt None Present (0 %) -Necrotic Tissue Type -Structure Exposed N/A -Texture (Cinthia-wound Skin Appearance) Scarring -Moisture (Cinthia-wound Skin Appearance) No Abnormality -Color (Cinthia-wound Skin Appearance) Assessed -Temperature (Cinthia-wound Skin No Abnormality Appearance) (Pt Warm) -Tenderness on Palpation (Cinthia-wound No Skin Appearance) -Ulcer Cleansing Soap and Water -Foul Odor after Cleansing No -Anesthetic Used 5% Lidocaine Gel WC - Nurse 2 - General Ulcer CM Notes Start: 01/07/22 13:56 Freq: Status: Active Protocol: Activity Type Activity Date Activity User E-sign Co-sign Detail Recorded Client Recorded Date Recorded By Document 01/07/22 14:42 [id number] 01/07/22 15:09 Document 01/14/22 13:51 [id number] 01/14/22 14:18 Document 01/21/22 15:31 [id number] 01/21/22 15:43 Document 01/28/22 14:17 [id number] 01/28/22 14:28 Edit Result 01/28/22 14:17 (1) [id number] 01/28/22 14:32 (1) #2 Right Arm - Bleeding Controlled with Pressure => Pressure,Silver => Nitrate 01/07/22 01/14/22 01/21/22 14:42 13:51 15:31 Wound Center Nurse 2 #2 Right Arm -Time 14:42 13:51 15:31 -Correct Patient Yes Yes Yes -Correct Side, Site, Position Yes Yes Yes -Correct Procedure Yes Yes Yes -Procedure Performed Yes Yes Yes -Type of Procedure Debridement Debridement Debridement -Clinical Debridement Subcutaneous Subcutaneous Subcutaneous -Tissue Removed Subcutaneous Subcutaneous Subcutaneous -Post Debridement (cm) - Length 6.4 5.5 4.8 -Post Debridement (cm) - Width 9.7 8.6 6.7 -Post Debridement (cm) - Depth 0.5 0.4 0.3 -Total Square (Post) (cm) 62.08 47.30 32.16 -Area of Debridement (cm) - Length 6.4 5.5 4.8 -Area of Debridement (cm) - Width 9.7 8.6 6.7 -Total Square (Area) (cm) 62.08 47.30 32.16 -Tunneling No No No -Undermining/Tunneling No No No -Circular Undermining No No No -Wound/Ulcer Outcome Not Healed Not Healed Not Healed -Ulcer Cleansing Rinsed/ Rinsed/ Rinsed/ Irrigated with Irrigated with Irrigated with Saline Saline Saline -Foul Odor after Cleansing No No No -Bioengineered Tissue No No No -Bleeding Controlled with Pressure Pressure Pressure -Treatment Response Procedure Procedure Procedure Tolerated Well Tolerated Well Tolerated Well -Offloading No No No -Assistive Device(s) Wheelchair -Debridement - Subq, 1st 20sq cm No Yes Yes -Debridement, SubQ, ea addt'l 20sq cm 2 1 or part thereof #1 Right Self -Time 14:43 14:13 15:32 -Correct Patient Yes Yes Yes -Correct Side, Site, Position Yes Yes Yes -Correct Procedure Yes Yes Yes -Procedure Performed Yes Yes Yes -Type of Procedure Debridement Debridement Debridement -Clinical Debridement Subcutaneous Subcutaneous Subcutaneous -Tissue Removed Subcutaneous Subcutaneous Subcutaneous -Post Debridement (cm) - Length 9.0 7.5 6.4 -Post Debridement (cm) - Width 2.5 1.4 1.2 -Post Debridement (cm) - Depth 0.2 0.3 0.1 -Total Square (Post) (cm) 22.50 10.50 7.68 -Area of Debridement (cm) - Length 9.0 7.5 6.4 -Area of Debridement (cm) - Width 2.5 1.4 1.2 -Total Square (Area) (cm) 22.50 10.50 7.68 -Tunneling No No No -Undermining/Tunneling No No No -Circular Undermining No No No -Wound/Ulcer Outcome Not Healed Not Healed Not Healed -Ulcer Cleansing Rinsed/ Rinsed/ Rinsed/ Irrigated with Irrigated with Irrigated with Saline Saline Saline -Foul Odor after Cleansing No No No -Bioengineered Tissue No No No -Bleeding Controlled with Pressure Pressure Pressure -Treatment Response Procedure Procedure Procedure Tolerated Well Tolerated Well Tolerated Well -Offloading No No -Debridement - Subq, 1st 20sq cm Yes No No -Debridement, SubQ, ea addt'l 20sq cm 4 or part thereof Pain Scale: 0-10 Numeric Is Patient Pain Free? Yes Yes Yes 01/28/22 14:17 Wound Center Nurse 2 #2 Right Arm -Time 14:17 -Correct Patient Yes -Correct Side, Site, Position Yes -Correct Procedure Yes -Procedure Performed Yes -Type of Procedure Debridement -Clinical Debridement Subcutaneous -Tissue Removed Subcutaneous -Post Debridement (cm) - Length 3.7 -Post Debridement (cm) - Width 5.3 -Post Debridement (cm) - Depth 0.1 -Total Square (Post) (cm) 19.61 -Area of Debridement (cm) - Length 3.7 -Area of Debridement (cm) - Width 5.3 -Total Square (Area) (cm) 19.61 -Tunneling No -Undermining/Tunneling No -Circular Undermining No -Wound/Ulcer Outcome Not Healed -Ulcer Cleansing Rinsed/ Irrigated with Saline -Foul Odor after Cleansing No -Bioengineered Tissue No -Bleeding Controlled with Pressure,Silver Nitrate -Treatment Response Procedure Tolerated Well -Offloading No -Assistive Device(s) -Debridement - Subq, 1st 20sq cm No -Debridement, SubQ, ea addt'l 20sq cm or part thereof #1 Right Self -Time 14:18 -Correct Patient Yes -Correct Side, Site, Position Yes -Correct Procedure Yes -Procedure Performed Yes -Type of Procedure Debridement -Clinical Debridement Subcutaneous -Tissue Removed Subcutaneous -Post Debridement (cm) - Length 1.5 -Post Debridement (cm) - Width 0.5 -Post Debridement (cm) - Depth 0.1 -Total Square (Post) (cm) 0.75 -Area of Debridement (cm) - Length 1.5 -Area of Debridement (cm) - Width 0.5 -Total Square (Area) (cm) 0.75 -Tunneling No -Undermining/Tunneling -Circular Undermining No -Wound/Ulcer Outcome Not Healed -Ulcer Cleansing Rinsed/ Irrigated with Saline -Foul Odor after Cleansing No -Bioengineered Tissue No -Bleeding Controlled with Pressure -Treatment Response Procedure Tolerated Well -Offloading No -Debridement - Subq, 1st 20sq cm Yes -Debridement, SubQ, ea addt'l 20sq cm 1 or part thereof Pain Scale: 0-10 Numeric Is Patient Pain Free? Yes WC - Nurse 3 - General Ulcer D/C NN Start: 01/07/22 13:56 Freq: Status: Active Protocol: Activity Type Activity Date Activity User E-sign Co-sign Detail Recorded Client Recorded Date Recorded By Document 01/14/22 14:24 DL [id number] 01/14/22 14:26 DL Document 01/21/22 16:08 DL [id number] 01/21/22 16:10 DL Document 01/28/22 14:42 DL [id number] 01/28/22 14:44 DL 01/14/22 01/21/22 01/28/22 14:24 16:08 14:42 Wound Care Nurse 3 #2 Right Arm -Ulcer Cleansing Rinsed/ Soap and Water Rinsed/ Irrigated with Irrigated with Saline Saline -Foul Odor after Cleansing No No No -Negative Pressure Wound Therapy N/A -Primary Dressing Applied Aquacel AG 4x4 Aquacel AG 4x4, Aquacel AG 2x2, NonAdherent NonAdherent Contact Layer Contact Layer -Primary Dressing Covered/Secured with Dry Gauze & Dry Gauze & Dry Gauze & Roll Gauze, Roll Gauze, Roll Gauze, Secured with Secured with Secured with Tape Tape Tape -Other Covering tubigrip tubigrip d -Aquacel AG 4x4 1 1 -Aquacel AG 2x2 1 #1 Right Self -Ulcer Cleansing Rinsed/ Soap and Water Rinsed/ Irrigated with Irrigated with Saline Saline -Foul Odor after Cleansing No No No -Primary Dressing Applied C Hydrogel ($) C Hydrogel ($), NonAdherent NonAdherent Contact Layer Contact Layer -Other Dressing hydrogel -Primary Dressing Covered/Secured with Dry Gauze & Dry Gauze & Dry Gauze & Roll Gauze, Roll Gauze, Roll Gauze, Secured with Secured with Secured with Tape Tape Tape Left -Tubular Bandage Single Layer -Size of Tubigrip Used Size E -Size E ($) 1 Treatment Response Procedure Procedure Procedure Tolerated Well Tolerated Well Tolerated Well Pain Scale: 0-10 Numeric Is Patient Pain Free? Yes Yes Yes WC - Visit Discharge Discharge Condition Stable Stable Stable Ambulatory Status Wheelchair Wheelchair Transportation Private Auto Private Auto Private Auto Accompanied by family Additional Wound Wound debrided: Forearm ulcer Laterality: Right Wound Grade/Stage: Stage II Type of Debridement: Excisional debridement Anesthesia Used: 5% Lidocaine Gel Depth: Down to and including healthy tissue and in the subcutaneous layer Percentage of wound debrided: 100 Instrument Used: 5mm curette Tissue Removed: Non viable tissue and slough Severity: Fat Layer Exposed Amount of bleeding with debridement: Mild Bleeding Controlled with: Compression and gauze Patient tolerated procedure: Patient tolerated procedure well Assessment/Plan Assessment/Plan (1) Skin tear of right upper extremity: CODE(S): S41.111A - Laceration without foreign body of right upper arm, initial encounter (2) Noninfected skin tear of right leg: CODE(S): S81.811A - Laceration without foreign body, right lower leg, initial encounter QUALIFIERS: Encounter type: initial encounter Qualified Code(s): S81.811A - Laceration without foreign body, right lower leg, initial encounter (3) Open wound of right forearm: CODE(S): S51.801A - Unspecified open wound of right forearm, initial encounter QUALIFIERS: Encounter type: initial encounter Qualified Code(s): S51.801A - Unspecified open wound of right forearm, initial encounter (4) Leg wound, right: CODE(S): S81.801A - Unspecified open wound, right lower leg, initial encounter QUALIFIERS: Encounter type: initial encounter Qualified Code(s): S81.801A - Unspecified open wound, right lower leg, initial encounter (5) Methicillin resistant Staphylococcus epidermidis infection: CODE(S): A49.8 - Other bacterial infections of unspecified site; Z16.29 - Resistance to other single specified antibiotic (6) ESRD on peritoneal dialysis: CODE(S): N18.6 - End stage renal disease; Z99.2 - Dependence on renal dialysis (7) Type II diabetes mellitus: CODE(S): E11.9 - Type 2 diabetes mellitus without complications (8) History of implantable cardiac defibrillator (ICD): CODE(S): Z95.810 - Presence of automatic (implantable) cardiac defibrillator (9) Chronic diastolic CHF (congestive heart failure): CODE(S): I50.32 - Chronic diastolic (congestive) heart failure (10) Fall as cause of accidental injury in home as place of occurrence: CODE(S): W19.XXXA - Unspecified fall, initial encounter; Y92.009 - Unspecified place in unspecified non-institutional (private) residence as the place of occurrence of the external cause PLAN: Plan Wound care - Collagen hydrogel covered adaptic and topped with gauze on the right anterior leg wound daily after washing with soap and water. Place moistened silver alginate and cover with gauze daily to the dorsal proximal right forearm wound after washing with soap and water. Compression will be a single layer tubigrip to both her right arm and her right leg. This should help decrease her swelling and help keep her incision in place. Encouraged to elevate her right arm when sitting to help decrease her edema. Wound culture from 01/07/22 showed Staphylococcus lentus and MRSE and possible fungus. She was started on Levaquin. Will order a separate fungal culture to confirm the presence of fungus before treatment. Encourage nutritional supplementation with protein to help the healing process. Discussed with the patient that if there is a plateau in the healing of the traumatic wounds, then we can consider placement of advanced skin substitute grafts such as Thera-Skin. Follow up one week.
== END 2022-01-28 23:59 | disposition home or self-care (01) ==
LOC: WC 14:00
PROVIDERS: PCP Family Medicine; Visit Provider Nurse Practitioner Family
DX: S41.111A Laceration without foreign body of right upper arm, initial encounter (principal); I13.2 Hypertensive heart and chronic kidney disease with heart failure and with stage 5 chronic kidney disease, or end stage renal disease; Z99.2 Dependence on renal dialysis; I50.32 Chronic diastolic (congestive) heart failure; E11.22 Type 2 diabetes mellitus with diabetic chronic kidney disease; N18.6 End stage renal disease; Z79.4 Long term (current) use of insulin; A49.9 Bacterial infection, unspecified; E78.5 Hyperlipidemia, unspecified; R53.81 Other malaise; Z79.2 Long term (current) use of antibiotics; I25.10 Atherosclerotic heart disease of native coronary artery without angina pectoris; Z95.810 Presence of automatic (implantable) cardiac defibrillator; Z82.3 Family history of stroke; S81.811A Laceration without foreign body, right lower leg, initial encounter; S51.801A Unspecified open wound of right forearm, initial encounter; S81.801A Unspecified open wound, right lower leg, initial encounter; W19.XXXA Unspecified fall, initial encounter
CPT/HCPCS: 11042; 11045; 87070; 87075; 87077; 87186; 87205; 99213; G0463

== ENCOUNTER 2022-02-25 13:45 | Outpatient (RCR) | payer MEDICARE, SELFPAY ==
[2022-01-29 00:40] VITALS: BP 145/59; PULSE 86; RESP 18; TEMP 136; TEMP 57.7
--- NOTE | 2022-02-04 14:46 | PN.PCM_ITS ---
History of Present Illness Date of Service: 02/04/22 Chief Complaint: Traumatic open wounds dorsal proximal right forearm and right anterior leg after a fall at home. History of Wound: 81 year old female presents to the wound center for evaluation of her right forearm skin tear and right anterior leg skin tear that she obtained on 12/30/21 when she fell walking up steps. She went to the ED where x- rays and tetanus shot and they were told that her skin tears would heal. She has a history of End stage renal failure and she is on peritoneal dialysis at home. She also has DM type II, has a significant cardiac history with ICD placed, CHF, and debility. She lives at home and her family is helping to take care of her. At her last visit on 01/07/22, a wound culture was done from the right forearm wound. It was positive for Staphylococcus lentus, MRSE, and possible fungus. She was started on Levaquin. Today she denies fever, chills, nausea and vomiting. She states her appetite is ok. Progress of Wound: Right anterior leg wound is much smaller except in the center where she bumped it this week on a step. Right dorsal proximal forearm wound has decreased in sized and depth. Her right arm has +1 non pitting edema, she has been wearing compression. Objective Data Objective Data Vital Signs: Vital Signs Temp Pulse Resp BP 136 F H 86 18 145/59 H 01/29/22 00:40 01/29/22 00:40 01/29/22 00:40 01/29/22 00:40 Charges/Coding Procedures Integumentary [id number]: [id number] Pascale subq tissue 20 sq cm/< Add On Codes: 10563 Pascale subq tissue add-on Debridement Note Debridement Note Wound debrided: #1 Right anterior leg. Laterality: Right Wound Grade/Stage: Stage II Type of Debridement: Excisional debridement Anesthesia Used: 5% Lidocaine Gel Depth: Down to and including healthy tissue and in the subcutaneous layer Percentage of wound debrided: 100 Instrument Used: 3mm curette Tissue Removed: Subcutaneous tissue and slough Severity: Fat Layer Exposed Amount of bleeding with debridement: Mild Bleeding Controlled with: Pressure and Compression and gauze Patient tolerated procedure: Patient tolerated procedure well Post-Debridement Measurements and Additional Note: Post-Debridement Measurements/Treatment WC - Nurse 2 - General Ulcer CM Notes Start: 02/04/22 13:19 Freq: Status: Active Protocol: Activity Type Activity Date Activity User E-sign Co-sign Detail Recorded Client Recorded Date Recorded By Document 02/04/22 13:19 NICK [id number] 02/04/22 13:30 NICK 02/04/22 13:19 Wound Center Nurse 2 #2 Right Arm -Time 13:25 -Correct Patient Yes -Correct Side, Site, Position Yes -Correct Procedure Yes -Procedure Performed Yes -Type of Procedure Debridement -Clinical Debridement Subcutaneous -Tissue Removed Subcutaneous -Post Debridement (cm) - Length 3.7 -Post Debridement (cm) - Width 5.5 -Post Debridement (cm) - Depth 0.1 -Total Square (Post) (cm) 20.35 -Area of Debridement (cm) - Length 3.7 -Area of Debridement (cm) - Width 5.5 -Total Square (Area) (cm) 20.35 -Tunneling No -Undermining/Tunneling No -Circular Undermining No -Wound/Ulcer Outcome Not Healed -Ulcer Cleansing Rinsed/ Irrigated with Saline -Foul Odor after Cleansing No -Bioengineered Tissue No -Bleeding Controlled with Pressure -Treatment Response Procedure Tolerated Well -Offloading No -Debridement - Subq, 1st 20sq cm Yes -Debridement, SubQ, ea addt'l 20sq cm 1 or part thereof #1 Right Self -Time 13:19 -Correct Patient Yes -Correct Side, Site, Position Yes -Correct Procedure Yes -Procedure Performed Yes -Type of Procedure Debridement -Clinical Debridement Subcutaneous -Tissue Removed Subcutaneous -Post Debridement (cm) - Length 4.5 -Post Debridement (cm) - Width 0.7 -Post Debridement (cm) - Depth 0.1 -Total Square (Post) (cm) 3.15 -Area of Debridement (cm) - Length 4.5 -Area of Debridement (cm) - Width 0.7 -Total Square (Area) (cm) 3.15 -Tunneling No -Undermining/Tunneling No -Circular Undermining No -Wound/Ulcer Outcome Not Healed -Ulcer Cleansing Rinsed/ Irrigated with Saline -Foul Odor after Cleansing No -Bioengineered Tissue No -Bleeding Controlled with Pressure -Treatment Response Procedure Tolerated Well -Offloading No -Debridement - Subq, 1st 20sq cm No Pain Scale: 0-10 Numeric Is Patient Pain Free? Yes WC - Nurse 3 - General Ulcer D/C NN Start: 02/04/22 13:19 Freq: Status: Active Protocol: Activity Type Activity Date Activity User E-sign Co-sign Detail Recorded Client Recorded Date Recorded By Document 02/04/22 13:40 DL [id number] 02/04/22 13:44 DL 02/04/22 13:40 Wound Care Nurse 3 #2 Right Arm -Ulcer Cleansing Rinsed/ Irrigated with Saline -Foul Odor after Cleansing No -Primary Dressing Applied Aquacel AG 4x4 -Primary Dressing Covered/Secured with Dry Gauze, Secured with Tape -Aquacel AG 4x4 1 #1 Right Self -Ulcer Cleansing Rinsed/ Irrigated with Saline -Foul Odor after Cleansing No -Primary Dressing Applied NonAdherent Contact Layer -Other Dressing hydrogel -Primary Dressing Covered/Secured with Dry Gauze & Roll Gauze, Secured with Tape Treatment Response Procedure Tolerated Well Pain Scale: 0-10 Numeric Is Patient Pain Free? Yes WC - Visit Discharge Discharge Condition Stable Ambulatory Status Wheelchair Transportation Private Auto Accompanied by family Notes: Pt refusing tubigrip to both arm and leg. Additional Wound Wound debrided: Forearm ulcer Laterality: Right Wound Grade/Stage: Stage II Type of Debridement: Excisional debridement Anesthesia Used: 5% Lidocaine Gel Depth: Down to and including healthy tissue and in the subcutaneous layer Percentage of wound debrided: 100 Instrument Used: 5mm curette Tissue Removed: Non viable tissue and slough Severity: Fat Layer Exposed Amount of bleeding with debridement: Mild Bleeding Controlled with: Compression and gauze Patient tolerated procedure: Patient tolerated procedure well Assessment/Plan Assessment/Plan (1) Skin tear of right upper extremity: CODE(S): S41.111A - Laceration without foreign body of right upper arm, initial encounter (2) Noninfected skin tear of right leg: CODE(S): S81.811A - Laceration without foreign body, right lower leg, initial encounter QUALIFIERS: Encounter type: initial encounter Qualified Code(s): S81.811A - Laceration without foreign body, right lower leg, initial encounter (3) Open wound of right forearm: CODE(S): S51.801A - Unspecified open wound of right forearm, initial encounter QUALIFIERS: Encounter type: initial encounter Qualified Code(s): S51.801A - Unspecified open wound of right forearm, initial encounter (4) Leg wound, right: CODE(S): S81.801A - Unspecified open wound, right lower leg, initial encounter QUALIFIERS: Encounter type: initial encounter Qualified Code(s): S81.801A - Unspecified open wound, right lower leg, initial encounter (5) Methicillin resistant Staphylococcus epidermidis infection: CODE(S): A49.8 - Other bacterial infections of unspecified site; Z16.29 - Resistance to other single specified antibiotic (6) ESRD on peritoneal dialysis: CODE(S): N18.6 - End stage renal disease; Z99.2 - Dependence on renal dialysis (7) Type II diabetes mellitus: CODE(S): E11.9 - Type 2 diabetes mellitus without complications (8) History of implantable cardiac defibrillator (ICD): CODE(S): Z95.810 - Presence of automatic (implantable) cardiac defibrillator (9) Chronic diastolic CHF (congestive heart failure): CODE(S): I50.32 - Chronic diastolic (congestive) heart failure (10) Fall as cause of accidental injury in home as place of occurrence: CODE(S): W19.XXXA - Unspecified fall, initial encounter; Y92.009 - Unspecified place in unspecified non-institutional (private) residence as the place of occurrence of the external cause PLAN: Plan Wound care - Collagen hydrogel covered adaptic and topped with gauze on the right anterior leg wound daily after washing with soap and water. Place moistened silver alginate and cover with gauze daily to the dorsal proximal right forearm wound after washing with soap and water. Compression will be a single layer tubigrip to both her right arm and her right leg. This should help decrease her swelling and help keep her incision in place. Encouraged to elevate her right arm when sitting to help decrease her edema. Wound culture from 01/07/22 showed Staphylococcus lentus and MRSE and possible fungus. She was started on Levaquin. Will order a separate fungal culture to confirm the presence of fungus before treatment. Encourage nutritional supplementation with protein to help the healing process. Discussed with the patient that if there is a plateau in the healing of the traumatic wounds, then we can consider placement of advanced skin substitute grafts such as Thera-Skin. Follow up one week.
[2022-02-04 15:21] VITALS: BP 133/33; PULSE 70; TEMP 36.3
[2022-02-11 14:31] VITALS: BP 133/67; PULSE 69; TEMP 36.1
--- NOTE | 2022-02-11 15:12 | PN.PCM_ITS ---
History of Present Illness Date of Service: 02/11/22 Chief Complaint: Traumatic open wounds dorsal proximal right forearm and right anterior leg after a fall at home. History of Wound: 81 year old female presents to the wound center for evaluation of her right forearm skin tear and right anterior leg skin tear that she obtained on 12/30/21 when she fell walking up steps. She went to the ED where x- rays and tetanus shot and they were told that her skin tears would heal. She has a history of End stage renal failure and she is on peritoneal dialysis at home. She also has DM type II, has a significant cardiac history with ICD placed, CHF, and debility. She lives at home and her family is helping to take care of her. At her last visit on 01/07/22, a wound culture was done from the right forearm wound. It was positive for Staphylococcus lentus, MRSE, and possible fungus. She was started on Levaquin. Today she denies fever, chills, nausea and vomiting. She states her appetite is ok. Progress of Wound: Right anterior leg wound is almost healed. Right dorsal proximal forearm wound has decreased in sized and depth and overall is improving. She has a new wound on her right upper arm from bumping it on something. Objective Data Objective Data Vital Signs: Vital Signs Temp Pulse Resp BP 96.9 F L 69 18 133/67 H 02/11/22 14:31 02/11/22 14:31 01/29/22 00:40 02/11/22 14:31 Charges/Coding Procedures Integumentary 111xxx-113xx: [id number] Pascale subq tissue 20 sq cm/< Add On Codes: 74158 Pascale subq tissue add-on Debridement Note Debridement Note Wound debrided: #1 Right anterior leg. Laterality: Right Wound Grade/Stage: Stage II Type of Debridement: Excisional debridement Anesthesia Used: 5% Lidocaine Gel Depth: Down to and including healthy tissue and in the subcutaneous layer Percentage of wound debrided: 100 Instrument Used: 3mm curette Tissue Removed: Subcutaneous tissue and slough Severity: Fat Layer Exposed Amount of bleeding with debridement: Mild Bleeding Controlled with: Pressure and Compression and gauze Patient tolerated procedure: Patient tolerated procedure well Post-Debridement Measurements and Additional Note: Post-Debridement Measurements/Treatment KACI - Nurse 1 - General Ulcer Assessment Start: 02/04/22 13:19 Freq: Status: Active Protocol: HAFSA Activity Type Activity Date Activity User E-sign Co-sign Detail Recorded Client Recorded Date Recorded By Document 02/04/22 15:21 AK [id number] 02/04/22 15:23 AK Document 02/11/22 14:31 AK [id number] 02/11/22 14:34 AK 02/04/22 02/11/22 15:21 14:31 - Today's Visit Information Type of service Follow-up Visit Follow-up Visit (Physician/CAFETERIA WORKER (Physician/CAFETERIA WORKER ) ) Arrival Mode Wheelchair Wheelchair Patient Identification Verified (Name & Yes Yes ) Patient Requires Transmission-Based No Precautions Vital Signs Temperature (97.8 F-99.1 F) 97.3 F L 96.9 F L Temperature Source Temporal Temporal Pulse Rate (60-100) 70 69 Pulse Location Monitor Monitor Blood Pressure (90/60-120/80) 133/33 H 133/67 H Blood Pressure Mean (mm Hg) 66 89 Source Monitor Monitor History Since Last Visit- (Skip if this is Patient's initial visit) Have you changed medications since your No No last visit? Any new allergies or adverse reactions No No Had a fall/change in ADL's that may No No increase risk of falls Signs or symptoms of abuse and/or No No neglect since last visit Have you been in the hospital since your No No last visit? Has dressing in place as prescribed Yes Yes Has compression in place as prescribed N/A N/A Has offloadiing in place as prescribed N/A N/A Experienced any changes in pain level or No No management Left Footwear Regular Shoe Regular Shoe Right Footwear Regular Shoe Regular Shoe Pain Scale: 0-10 Numeric Is Patient Pain Free? No Yes - Nurse 1 - General Ulcer Measurement Start: 02/04/22 13:19 Freq: Status: Active Protocol: Activity Type Activity Date Activity User E-sign Co-sign Detail Recorded Client Recorded Date Recorded By Document 02/04/22 15:21 AK [id number] 02/04/22 15:23 AK Document 02/11/22 14:31 TN [id number] 02/11/22 14:34 AK 02/04/22 02/11/22 15:21 14:31 Wound Center Nurse 1 #2 Right Arm -Combined with other wound No No -Current Size (cm) - Length 2 9.5 -Current Size (cm) - Width 4 7 -Current Size (cm) - Depth 0.1 0.1 -Total Square Cm 8 66.5 -Date of Last Picture (Recall this 02/04/22 field) -Photo Taken Yes Yes -Tunneling No No -Undermining/Tunneling No No -Circular Undermining No No -Change in Wound Grade/Stage No No -Exudate Amt Large None Present -Exudate Type Serosanguineous -Wound Margin Distinct, Distinct, Outline Outline Attached Attached -Granulation Amt Large (67-100%) None Present (0 %) -Granulation Quality Hyper- N/A granulation, [place],Red -Slough/Fibrin Yes No -Necrosis Amt Small (1-33%) Small (1-33%) -Necrotic Tissue Type Adherent Slough Adherent Slough -Structure Exposed N/A N/A -Texture (Cinthia-wound Skin Appearance) No Abnormality, No Abnormality, Assessed Assessed -Moisture (Cinthia-wound Skin Appearance) No Abnormality, No Abnormality, Assessed Assessed -Color (Cinthia-wound Skin Appearance) No Abnormality, No Abnormality, Assessed Assessed -Temperature (Cinthia-wound Skin No Abnormality No Abnormality Appearance) (Pt Warm) (Pt Warm) -Tenderness on Palpation (Cinthia-wound No No Skin Appearance) -Ulcer Cleansing Rinsed/ Rinsed/ Irrigated with Irrigated with Saline Saline -Foul Odor after Cleansing No No -Anesthetic Used 4% Lidocaine 4% Lidocaine Solution Solution #1 Right Self -Combined with other wound No No -Current Size (cm) - Length 2 0.5 -Current Size (cm) - Width 1.2 0.2 -Current Size (cm) - Depth 0.1 0.1 -Total Square Cm 2.4 0.10 -Date of Last Picture (Recall this 02/04/22 field) -Photo Taken Yes No -Tunneling No No -Undermining/Tunneling No No -Circular Undermining No No -Change in Wound Grade/Stage No No -Exudate Amt Small None Present -Exudate Type Serosanguineous -Wound Margin Distinct, Outline Attached -Granulation Amt Medium (34-66%) Large (67-100%) -Granulation Quality [place],Red [place] -Slough/Fibrin No No -Necrosis Amt None Present (0 None Present (0 %) %) -Structure Exposed N/A N/A -Texture (Cinthia-wound Skin Appearance) No Abnormality, Assessed, Assessed Scarring -Moisture (Cinthia-wound Skin Appearance) No Abnormality, No Abnormality, Assessed Assessed -Color (Cinthia-wound Skin Appearance) No Abnormality, No Abnormality, Assessed Assessed -Temperature (Cinthia-wound Skin No Abnormality No Abnormality Appearance) (Pt Warm) (Pt Warm) -Tenderness on Palpation (Cinthia-wound No No Skin Appearance) -Ulcer Cleansing Rinsed/ Rinsed/ Irrigated with Irrigated with Saline Saline -Foul Odor after Cleansing No No -Anesthetic Used 4% Lidocaine 4% Lidocaine Solution Solution WC - Nurse 2 - General Ulcer CM Notes Start: 02/04/22 13:19 Freq: Status: Active Protocol: Activity Type Activity Date Activity User E-sign Co-sign Detail Recorded Client Recorded Date Recorded By Document 02/04/22 13:19 [id number] 02/04/22 13:30 Document 02/11/22 14:38 [id number] 02/11/22 14:48 02/04/22 02/11/22 13:19 14:38 Wound Center Nurse 2 4-right upper arm -Time 14:42 -Correct Patient Yes -Correct Side, Site, Position Yes -Correct Procedure Yes -Procedure Performed Yes -Type of Procedure Debridement -Clinical Debridement Subcutaneous -Tissue Removed Subcutaneous -Post Debridement (cm) - Length 0.9 -Post Debridement (cm) - Width 1.0 -Post Debridement (cm) - Depth 0.1 -Total Square (Post) (cm) 0.90 -Area of Debridement (cm) - Length 0.9 -Area of Debridement (cm) - Width 1.0 -Total Square (Area) (cm) 0.90 -Tunneling No -Undermining/Tunneling No -Circular Undermining No -Wound/Ulcer Outcome Not Healed -Ulcer Cleansing Rinsed/ Irrigated with Saline -Foul Odor after Cleansing No -Bioengineered Tissue No -Bleeding Controlled with Pressure -Treatment Response Procedure Tolerated Well -Offloading No -Debridement - Subq, 1st 20sq cm Yes -Debridement, SubQ, ea addt'l 20sq cm 1 or part thereof 3-right upper forearm -Time 14:41 -Correct Patient Yes -Correct Side, Site, Position Yes -Correct Procedure Yes -Procedure Performed Yes -Type of Procedure Debridement -Clinical Debridement Subcutaneous -Tissue Removed Subcutaneous -Post Debridement (cm) - Length 4.0 -Post Debridement (cm) - Width 4.5 -Post Debridement (cm) - Depth 0.1 -Total Square (Post) (cm) 18.00 -Area of Debridement (cm) - Length 4.0 -Area of Debridement (cm) - Width 4.5 -Total Square (Area) (cm) 18.00 -Tunneling No -Undermining/Tunneling No -Circular Undermining No -Wound/Ulcer Outcome Not Healed -Ulcer Cleansing Rinsed/ Irrigated with Saline -Foul Odor after Cleansing No -Bioengineered Tissue No -Bleeding Controlled with Pressure -Treatment Response Procedure Tolerated Well -Offloading No -Debridement - Subq, 1st 20sq cm No #2 Right Arm -Time 13:25 14:43 -Correct Patient Yes Yes -Correct Side, Site, Position Yes Yes -Correct Procedure Yes Yes -Procedure Performed Yes Yes -Type of Procedure Debridement Debridement -Clinical Debridement Subcutaneous Subcutaneous -Tissue Removed Subcutaneous Subcutaneous -Post Debridement (cm) - Length 3.7 2.5 -Post Debridement (cm) - Width 5.5 4.8 -Post Debridement (cm) - Depth 0.1 0.2 -Total Square (Post) (cm) 20.35 12.00 -Area of Debridement (cm) - Length 3.7 2.5 -Area of Debridement (cm) - Width 5.5 4.8 -Total Square (Area) (cm) 20.35 12.00 -Tunneling No No -Undermining/Tunneling No No -Circular Undermining No No -Wound/Ulcer Outcome Not Healed Not Healed -Ulcer Cleansing Rinsed/ Rinsed/ Irrigated with Irrigated with Saline Saline -Foul Odor after Cleansing No No -Bioengineered Tissue No No -Bleeding Controlled with Pressure Pressure -Treatment Response Procedure Procedure Tolerated Well Tolerated Well -Offloading No No -Debridement - Subq, 1st 20sq cm Yes No -Debridement, SubQ, ea addt'l 20sq cm 1 or part thereof #1 Right Self -Time 13:19 14:44 -Correct Patient Yes Yes -Correct Side, Site, Position Yes Yes -Correct Procedure Yes Yes -Procedure Performed Yes Yes -Type of Procedure Debridement Debridement -Clinical Debridement Subcutaneous Subcutaneous -Tissue Removed Subcutaneous Subcutaneous -Post Debridement (cm) - Length 4.5 0.5 -Post Debridement (cm) - Width 0.7 0.2 -Post Debridement (cm) - Depth 0.1 0.1 -Total Square (Post) (cm) 3.15 0.10 -Area of Debridement (cm) - Length 4.5 0.5 -Area of Debridement (cm) - Width 0.7 0.2 -Total Square (Area) (cm) 3.15 0.10 -Tunneling No No -Undermining/Tunneling No No -Circular Undermining No No -Wound/Ulcer Outcome Not Healed Not Healed -Ulcer Cleansing Rinsed/ Rinsed/ Irrigated with Irrigated with Saline Saline -Foul Odor after Cleansing No No -Bioengineered Tissue No No -Bleeding Controlled with Pressure Pressure -Treatment Response Procedure Procedure Tolerated Well Tolerated Well -Offloading No No -Debridement - Subq, 1st 20sq cm No No Pain Scale: 0-10 Numeric Is Patient Pain Free? Yes Yes WC - Nurse 3 - General Ulcer D/C NN Start: 02/04/22 13:19 Freq: Status: Active Protocol: Activity Type Activity Date Activity User E-sign Co-sign Detail Recorded Client Recorded Date Recorded By Document 02/04/22 13:40 DL [id number] 02/04/22 13:44 DL Document 02/11/22 14:56 DL [id number] 02/11/22 14:59 DL 02/04/22 02/11/22 13:40 14:56 Wound Care Nurse 3 4-right upper arm -Ulcer Cleansing Rinsed/ Irrigated with Saline -Foul Odor after Cleansing No -Primary Dressing Applied C Hydrogel ($), NonAdherent Contact Layer -Primary Dressing Covered/Secured with Dry Gauze & Roll Gauze, Secured with Tape -Other Covering tubigrip to R arm 3-right upper forearm -Ulcer Cleansing Rinsed/ Irrigated with Saline -Foul Odor after Cleansing No -Primary Dressing Applied C Hydrogel ($), NonAdherent Contact Layer -Primary Dressing Covered/Secured with Dry Gauze & Roll Gauze, Secured with Tape #2 Right Arm -Ulcer Cleansing Rinsed/ Rinsed/ Irrigated with Irrigated with Saline Saline -Foul Odor after Cleansing No No -Primary Dressing Applied Aquacel AG 4x4 Nugauze, Iodoform -Other Dressing hydrogel -Primary Dressing Covered/Secured with Dry Gauze, Dry Gauze & Secured with Roll Gauze, Tape Secured with Tape -Aquacel AG 4x4 1 -Nugauze, Iodoform 1/4 1 #1 Right Self -Ulcer Cleansing Rinsed/ Rinsed/ Irrigated with Irrigated with Saline Saline -Foul Odor after Cleansing No No -Primary Dressing Applied NonAdherent NonAdherent Contact Layer Contact Layer -Other Dressing hydrogel hydrogel -Primary Dressing Covered/Secured with Dry Gauze & Dry Gauze & Roll Gauze, Roll Gauze, Secured with Secured with Tape Tape Treatment Response Procedure Procedure Tolerated Well Tolerated Well Pain Scale: 0-10 Numeric Is Patient Pain Free? Yes Yes WC - Visit Discharge Discharge Condition Stable Stable Ambulatory Status Wheelchair Wheelchair Transportation Private Auto Private Auto Accompanied by family Notes: Pt refusing tubigrip to both arm and leg. Additional Wound Wound debrided: Forearm ulcer Laterality: Right Wound Grade/Stage: Stage II Type of Debridement: Excisional debridement Anesthesia Used: 5% Lidocaine Gel Depth: Down to and including healthy tissue and in the subcutaneous layer Percentage of wound debrided: 100 Instrument Used: 5mm curette Tissue Removed: Non viable tissue and slough Severity: Fat Layer Exposed Amount of bleeding with debridement: Mild Bleeding Controlled with: Compression and gauze Patient tolerated procedure: Patient tolerated procedure well Additional Wound Wound debrided: Upper arm wound Laterality: Right Wound Grade/Stage: StageII Type of Debridement: Excisional debridement Anesthesia Used: 5% Lidocaine Gel Depth: Down to and including healthy tissue and in the subcutaneous layer Percentage of wound debrided: 100 Instrument Used: 3mm curette Tissue Removed: Devitalized tissue and slough Severity: Fat Layer Exposed Amount of bleeding with debridement: Mild Bleeding Controlled with: Compression and gauze Patient tolerated procedure: Patient tolerated procedure well Assessment/Plan Assessment/Plan (1) Skin tear of right upper extremity: CODE(S): S41.111A - Laceration without foreign body of right upper arm, initial encounter (2) Noninfected skin tear of right leg: CODE(S): S81.811A - Laceration without foreign body, right lower leg, initial encounter QUALIFIERS: Encounter type: initial encounter Qualified Code(s): S81.811A - Laceration without foreign body, right lower leg, initial encounter (3) Open wound of right forearm: CODE(S): S51.801A - Unspecified open wound of right forearm, initial encounter QUALIFIERS: Encounter type: initial encounter Qualified Code(s): S51.801A - Unspecified open wound of right forearm, initial encounter (4) Leg wound, right: CODE(S): S81.801A - Unspecified open wound, right lower leg, initial encounter QUALIFIERS: Encounter type: initial encounter Qualified Code(s): S81.801A - Unspecified open wound, right lower leg, initial encounter (5) Methicillin resistant Staphylococcus epidermidis infection: CODE(S): A49.8 - Other bacterial infections of unspecified site; Z16.29 - Resistance to other single specified antibiotic (6) ESRD on peritoneal dialysis: CODE(S): N18.6 - End stage renal disease; Z99.2 - Dependence on renal dialysis (7) Type II diabetes mellitus: CODE(S): E11.9 - Type 2 diabetes mellitus without complications (8) History of implantable cardiac defibrillator (ICD): CODE(S): Z95.810 - Presence of automatic (implantable) cardiac defibrillator (9) Chronic diastolic CHF (congestive heart failure): CODE(S): I50.32 - Chronic diastolic (congestive) heart failure (10) Fall as cause of accidental injury in home as place of occurrence: CODE(S): W19.XXXA - Unspecified fall, initial encounter; Y92.009 - U nspecified place in unspecified non-institutional (private) residence as the place of occurrence of the external cause PLAN: Plan Wound care - Collagen hydrogel covered adaptic and topped with gauze on the right anterior leg wound, right forearm wound and the right upper arm wound daily after washing with soap and water. Compression will be a single layer tubigrip to both her right arm and her right leg. This should help decrease her swelling and help keep her incision in place. Encouraged to elevate her right arm when sitting to help decrease her edema. Wound culture from 01/07/22 showed Staphylococcus lentus and MRSE and possible fungus. She was started on Levaquin. Will order a separate fungal culture to confirm the presence of fungus before treatment. Encourage nutritional supplementation with protein to help the healing process. Discussed with the patient that if there is a plateau in the healing of the traumatic wounds, then we can consider placement of advanced skin substitute grafts such as Thera-Skin. Follow up one week.
[2022-02-18 13:51] VITALS: BP 149/93; PULSE 73; RESP 16; TEMP 35.9
--- NOTE | 2022-02-18 15:16 | PCM.WC.PN ---
History of Present Illness Date of Service: 02/18/22 Chief Complaint: Traumatic open wounds dorsal proximal right forearm and right anterior leg after a fall at home. History of Wound: 81 year old female presents to the wound center for evaluation of her right forearm skin tear and right anterior leg skin tear that she obtained on 12/30/21 when she fell walking up steps. She went to the ED where x-rays and tetanus shot and they were told that her skin tears would heal. She has a history of End stage renal failure and she is on peritoneal dialysis at home. She also has DM type II, has a significant cardiac history with ICD placed, CHF, and debility. She lives at home and her family is helping to take care of her. At her last visit on 01/07/22, a wound culture was done from the right forearm wound. It was positive for Staphylococcus lentus, MRSE, and possible fungus. She was started on Levaquin. Today she denies fever, chills, nausea and vomiting. She states her appetite is ok. Progress of Wound: Right anterior leg wound is healed. Right dorsal proximal forearm and right dorsal distal forearm wounds are smaller in sized and depth and overall is improving. The right upper arm wound is also improving and smaller in size. Objective Data Objective Data Vital Signs: Vital Signs Temp Pulse Resp BP O2 Del Method 96.6 F L 73 16 149/93 H Room Air 02/18/22 13:51 02/18/22 13:51 02/18/22 13:51 02/18/22 13:51 02/18/22 13:51 Oxygen Delivery Method Room Air Charges/Coding Procedures Integumentary 111xxx-113xx: 89348 Pascale subq tissue 20 sq cm/< Debridement Note Debridement Note Wound debrided: Dorsal distal and proximal forearm wounds Laterality: Right Wound Grade/Stage: Stage II Type of Debridement: Excisional debridement Anesthesia Used: 5% Lidocaine Gel Depth: Down to and including healthy tissue and in the subcutaneous layer Percentage of wound debrided: 100 Instrument Used: 3mm curette Tissue Removed: Devitalized tissue and slough Severity: Fat Layer Exposed Amount of bleeding with debridement: Mild Bleeding Controlled with: Pressure and Compression and gauze Patient tolerated procedure: Patient tolerated procedure well Post-Debridement Measurements and Additional Note: Post-Debridement Measurements/Treatment WC - Nurse 1 - General Ulcer Assessment Start: 02/04/22 13:19 Freq: Status: Active Protocol: WC.LOWEXT Activity Type Activity Date Activity User E-sign Co-sign Detail Recorded Client Recorded Date Recorded By Document 02/04/22 15:21 AK [id number] 02/04/22 15:23 MN Document 02/11/22 14:31 AK [id number] 02/11/22 14:34 MN Document 02/18/22 13:51 [facility] [id number] 02/18/22 13:57 [facility] 02/04/22 02/11/22 02/18/22 15:21 14:31 13:51 - Today's Visit Information Type of service Follow-up Visit Follow-up Visit Follow-up Visit (Physician/MANAGEMENT INTERN (Physician/MANAGEMENT INTERN (Physician/MANAGEMENT INTERN ) ) ) Arrival Mode Wheelchair Wheelchair Wheelchair Transfer Assistance None Accompanied by V[employer]IL [employer] Patient Identification Verified (Name & Yes Yes Yes ) Patient Requires Transmission-Based No No Precautions Vital Signs Temperature (97.8 F-99.1 F) 97.3 F L 96.9 F L 96.6 F L Temperature Source Temporal Temporal Temporal Pulse Rate (60-100) 70 69 73 Pulse Location Monitor Monitor Monitor Respiratory Rate (12-18) 16 Respiratory rate source Observation Oxygen Delivery Method Room Air Blood Pressure (90/60-120/80) 133/33 H 133/67 H 149/93 H Blood Pressure Mean (mm Hg) 66 89 111 Source Monitor Monitor Monitor Position Sitting Blood Pressure Location Right Arm History Since Last Visit- (Skip if this is Patient's initial visit) Have you changed medications since your No No No last visit? Any new allergies or adverse reactions No No No Had a fall/change in ADL's that may No No No increase risk of falls Signs or symptoms of abuse and/or No No No neglect since last visit Have you been in the hospital since your No No No last visit? Has dressing in place as prescribed Yes Yes Yes Has compression in place as prescribed N/A N/A Yes Has offloadiing in place as prescribed N/A N/A N/A Experienced any changes in pain level or No No No management Left Footwear Regular Shoe Regular Shoe Regular Shoe Right Footwear Regular Shoe Regular Shoe Regular Shoe Pain Scale: 0-10 Numeric Is Patient Pain Free? No Yes Yes - Nurse 1 - General Ulcer Measurement Start: 02/04/22 13:19 Freq: Status: Active Protocol: Activity Type Activity Date Activity User E-sign Co-sign Detail Recorded Client Recorded Date Recorded By Document 02/04/22 15:21 AK [id number] 02/04/22 15:23 AK Document 02/11/22 14:31 AK [id number] 02/11/22 14:34 AK Document 02/18/22 13:51 [facility] [id number] 02/18/22 13:57 BM 02/04/22 02/11/22 02/18/22 15:21 14:31 13:51 Wound Center Nurse 1 #1 Right Self -Combined with other wound No No No -Current Size (cm) - Length 2 0.5 0.1 -Current Size (cm) - Width 1.2 0.2 0.1 -Current Size (cm) - Depth 0.1 0.1 0.1 -Total Square Cm 2.4 0.10 0.01 -Date of Last Picture (Recall this 02/04/22 field) -Photo Taken Yes No -Epithelialization Large 67-100% -Tunneling No No No -Undermining/Tunneling No No No -Circular Undermining No No No -Change in Wound Grade/Stage No No -Exudate Amt Small None Present None Present -Exudate Type Serosanguineous -Wound Margin Distinct, Outline Attached -Granulation Amt Medium (34-66%) Large (67-100%) -Granulation Quality [place],Red [place] -Slough/Fibrin No No -Necrosis Amt None Present (0 None Present (0 %) %) -Structure Exposed N/A N/A -Texture (Cinthia-wound Skin Appearance) No Abnormality, Assessed, Assessed, Assessed Scarring Scarring -Moisture ([place]inthia-wound Skin Appearance) No Abnormality, No Abnormality, Assessed,Dry/ Assessed Assessed Scaly -Color ([place]inthia-wound Skin Appearance) No Abnormality, No Abnormality, Assessed Assessed Assessed -Temperature ([place]inthia-wound Skin No Abnormality No Abnormality No Abnormality Appearance) (Pt Warm) (Pt Warm) (Pt Warm) -Tenderness on Palpation ([place]inthia-wound No No No Skin Appearance) -Ulcer Cleansing Rinsed/ Rinsed/ Rinsed/ Irrigated with Irrigated with Irrigated with Saline Saline Saline -Foul Odor after Cleansing No No No -Anesthetic Used 4% Lidocaine 4% Lidocaine 4% Lidocaine Solution Solution Solution 4-right upper arm -Combined with other wound No -Current Size (cm) - Length 1 -Current Size (cm) - Width 0.8 -Current Size (cm) - Depth 0.1 -Total Square Cm 0.8 -Photo Taken No -Epithelialization Large 67-100% -Tunneling No -Undermining/Tunneling No -Circular Undermining No -Exudate Amt None Present -Granulation Amt None Present (0 %) -Slough/Fibrin Yes -Necrosis Amt Large (67-100%) -Necrotic Tissue Type Eschar -Texture (Cinthia-wound Skin Appearance) Assessed, Scarring -Moisture ([place]inthia-wound Skin Appearance) Assessed -Color ([place]inthia-wound Skin Appearance) Assessed -Temperature ([place]inthia-wound Skin No Abnormality Appearance) (Pt Warm) -Tenderness on Palpation (Cinthia-wound No Skin Appearance) -Ulcer Cleansing Rinsed/ Irrigated with Saline -Foul Odor after Cleansing No -Anesthetic Used 4% Lidocaine Solution 3-right upper forearm -Combined with other wound No -Current Size (cm) - Length 2.2 -Current Size (cm) - Width 4 -Current Size (cm) - Depth 0.1 -Total Square Cm 8.8 -Photo Taken No -Epithelialization Small 1-33% -Tunneling No -Undermining/Tunneling No -Circular Undermining No -Exudate Amt None Present -Wound Margin Distinct, Outline Attached -Granulation Amt Medium (34-66%) -Granulation Quality [place] -Slough/Fibrin Yes -Necrosis Amt Small (1-33%) -Necrotic Tissue Type Adherent Slough -Texture (Cinthia-wound Skin Appearance) Assessed, Scarring -Moisture (Cinthia-wound Skin Appearance) Assessed -Color (Cinthia-wound Skin Appearance) Assessed -Temperature (Cinthia-wound Skin No Abnormality Appearance) (Pt Warm) -Tenderness on Palpation (Cinthia-wound No Skin Appearance) -Ulcer Cleansing Rinsed/ Irrigated with Saline -Foul Odor after Cleansing No -Anesthetic Used 4% Lidocaine Solution #2 Right Arm -Combined with other wound No No No -Current Size (cm) - Length 2 9.5 3.2 -Current Size (cm) - Width 4 7 4.5 -Current Size (cm) - Depth 0.1 0.1 0.1 -Total Square Cm 8 66.5 14.40 -Date of Last Picture (Recall this 02/04/22 field) -Photo Taken Yes Yes No -Epithelialization Small 1-33% -Tunneling No No No -Undermining/Tunneling No No No -Circular Undermining No No No -Change in Wound Grade/Stage No No -Exudate Amt Large None Present None Present -Exudate Type Serosanguineous -Wound Margin Distinct, Distinct, Distinct, Outline Outline Outline Attached Attached Attached -Granulation Amt Large (67-100%) None Present (0 Large (67-100%) %) -Granulation Quality Hyper- N/A [place] granulation, [place],Red -Slough/Fibrin Yes No Yes -Necrosis Amt Small (1-33%) Small (1-33%) Small (1-33%) -Necrotic Tissue Type Adherent Slough Adherent Slough Adherent Slough -Structure Exposed N/A N/A -Texture (Cinthia-wound Skin Appearance) No Abnormality, No Abnormality, Assessed, Assessed Assessed Scarring -Moisture ([place]inthia-wound Skin Appearance) No Abnormality, No Abnormality, Assessed Assessed Assessed -Color ([place]inthia-wound Skin Appearance) No Abnormality, No Abnormality, Assessed Assessed Assessed -Temperature ([place]inthia-wound Skin No Abnormality No Abnormality No Abnormality Appearance) (Pt Warm) (Pt Warm) (Pt Warm) -Tenderness on Palpation ([place]inthia-wound No No No Skin Appearance) -Ulcer Cleansing Rinsed/ Rinsed/ Rinsed/ Irrigated with Irrigated with Irrigated with Saline Saline Saline -Foul Odor after Cleansing No No No -Anesthetic Used 4% Lidocaine 4% Lidocaine 4% Lidocaine Solution Solution Solution WC - Nurse 2 - General Ulcer CM Notes Start: 02/04/22 13:19 Freq: Status: Active Protocol: Activity Type Activity Date Activity User E-sign Co-sign Detail Recorded Client Recorded Date Recorded By Document 02/04/22 13:19 [id number] 02/04/22 13:30 Document 02/11/22 14:38 [id number] 02/11/22 14:48 Document 02/18/22 14:13 [id number] 02/18/22 14:30 02/04/22 02/11/22 02/18/22 13:19 14:38 14:13 Wound Center Nurse 2 #1 Right Self -Time 13:19 14:44 -Correct Patient Yes Yes No -Correct Side, Site, Position Yes Yes No -Correct Procedure Yes Yes No -Procedure Performed Yes Yes No -Type of Procedure Debridement Debridement -Clinical Debridement Subcutaneous Subcutaneous -Tissue Removed Subcutaneous Subcutaneous -Post Debridement (cm) - Length 4.5 0.5 0 -Post Debridement (cm) - Width 0.7 0.2 0 -Post Debridement (cm) - Depth 0.1 0.1 0 -Total Square (Post) (cm) 3.15 0.10 0 -Area of Debridement (cm) - Length 4.5 0.5 0 -Area of Debridement (cm) - Width 0.7 0.2 0 -Total Square (Area) (cm) 3.15 0.10 0 -Tunneling No No -Undermining/Tunneling No No -Circular Undermining No No -Wound/Ulcer Outcome Not Healed Not Healed Healed- Epithelialized -Ulcer Cleansing Rinsed/ Rinsed/ Irrigated with Irrigated with Saline Saline -Foul Odor after Cleansing No No -Bioengineered Tissue No No -Bleeding Controlled with Pressure Pressure -Treatment Response Procedure Procedure Tolerated Well Tolerated Well -Offloading No No -Debridement - Subq, 1st 20sq cm No No 4-right upper arm -Time 14:42 14:20 -Correct Patient Yes Yes -Correct Side, Site, Position Yes Yes -Correct Procedure Yes Yes -Procedure Performed Yes Yes -Type of Procedure Debridement Debridement -Clinical Debridement Subcutaneous Subcutaneous -Tissue Removed Subcutaneous Subcutaneous -Post Debridement (cm) - Length 0.9 1.0 -Post Debridement (cm) - Width 1.0 0.7 -Post Debridement (cm) - Depth 0.1 0.1 -Total Square (Post) (cm) 0.90 0.70 -Area of Debridement (cm) - Length 0.9 1.0 -Area of Debridement (cm) - Width 1.0 0.7 -Total Square (Area) (cm) 0.90 0.70 -Tunneling No No -Undermining/Tunneling No No -Circular Undermining No No -Wound/Ulcer Outcome Not Healed Not Healed -Ulcer Cleansing Rinsed/ Rinsed/ Irrigated with Irrigated with Saline Saline -Foul Odor after Cleansing No No -Bioengineered Tissue No No -Bleeding Controlled with Pressure Pressure -Treatment Response Procedure Procedure Tolerated Well Tolerated Well -Offloading No No -Debridement - Subq, 1st 20sq cm Yes No -Debridement, SubQ, ea addt'l 20sq cm 1 or part thereof 3-right upper forearm -Time 14:41 14:18 -Correct Patient Yes Yes -Correct Side, Site, Position Yes Yes -Correct Procedure Yes Yes -Procedure Performed Yes Yes -Type of Procedure Debridement Debridement -Clinical Debridement Subcutaneous Subcutaneous -Tissue Removed Subcutaneous Subcutaneous -Post Debridement (cm) - Length 4.0 2.0 -Post Debridement (cm) - Width 4.5 1.5 -Post Debridement (cm) - Depth 0.1 0.1 -Total Square (Post) (cm) 18.00 3.00 -Area of Debridement (cm) - Length 4.0 2.0 -Area of Debridement (cm) - Width 4.5 1.5 -Total Square (Area) (cm) 18.00 3.00 -Tunneling No No -Undermining/Tunneling No No -Circular Undermining No No -Wound/Ulcer Outcome Not Healed Not Healed -Ulcer Cleansing Rinsed/ Rinsed/ Irrigated with Irrigated with Saline Saline -Foul Odor after Cleansing No No -Bioengineered Tissue No No -Bleeding Controlled with Pressure Pressure -Treatment Response Procedure Procedure Tolerated Well Tolerated Well -Offloading No No -Debridement - Subq, 1st 20sq cm No No #2 Right Arm -Time 13:25 14:43 14:20 -Correct Patient Yes Yes Yes -Correct Side, Site, Position Yes Yes Yes -Correct Procedure Yes Yes Yes -Procedure Performed Yes Yes Yes -Type of Procedure Debridement Debridement Debridement -Clinical Debridement Subcutaneous Subcutaneous Subcutaneous -Tissue Removed Subcutaneous Subcutaneous Subcutaneous -Post Debridement (cm) - Length 3.7 2.5 2.6 -Post Debridement (cm) - Width 5.5 4.8 3.5 -Post Debridement (cm) - Depth 0.1 0.2 0.1 -Total Square (Post) (cm) 20.35 12.00 9.10 -Area of Debridement (cm) - Length 3.7 2.5 2.6 -Area of Debridement (cm) - Width 5.5 4.8 3.5 -Total Square (Area) (cm) 20.35 12.00 9.10 -Tunneling No No No -Undermining/Tunneling No No No -Circular Undermining No No No -Wound/Ulcer Outcome Not Healed Not Healed Not Healed -Ulcer Cleansing Rinsed/ Rinsed/ Rinsed/ Irrigated with Irrigated with Irrigated with Saline Saline Saline -Foul Odor after Cleansing No No No -Bioengineered Tissue No No No -Bleeding Controlled with Pressure Pressure Pressure -Treatment Response Procedure Procedure Procedure Tolerated Well Tolerated Well Tolerated Well -Offloading No No No -Debridement - Subq, 1st 20sq cm Yes No Yes -Debridement, SubQ, ea addt'l 20sq cm 1 or part thereof Pain Scale: 0-10 Numeric Is Patient Pain Free? Yes Yes Yes WC - Nurse 3 - General Ulcer D/C NN Start: 02/04/22 13:19 Freq: Status: Active Protocol: Activity Type Activity Date Activity User E-sign Co-sign Detail Recorded Client Recorded Date Recorded By Document 02/04/22 13:40 DL [id number] 02/04/22 13:44 DL Document 02/11/22 14:56 DL [id number] 02/11/22 14:59 DL Document 02/18/22 14:40 DL [id number] 02/18/22 14:46 DL 02/04/22 02/11/22 02/18/22 13:40 14:56 14:40 Wound Care Nurse 3 #1 Right Self -Ulcer Cleansing Rinsed/ Rinsed/ Irrigated with Irrigated with Saline Saline -Foul Odor after Cleansing No No -Primary Dressing Applied NonAdherent NonAdherent Contact Layer Contact Layer -Other Dressing hydrogel hydrogel -Primary Dressing Covered/Secured with Dry Gauze & Dry Gauze & Roll Gauze, Roll Gauze, Secured with Secured with Tape Tape 4-right upper arm -Ulcer Cleansing Rinsed/ Rinsed/ Irrigated with Irrigated with Saline Saline -Foul Odor after Cleansing No No -Primary Dressing Applied C Hydrogel ($), C Hydrogel ($), NonAdherent Mepilex Border, Contact Layer NonAdherent Contact Layer -Primary Dressing Covered/Secured with Dry Gauze & Roll Gauze, Secured with Tape -Other Covering tubigrip to R arm -Mepilex Border 1 3-right upper forearm -Ulcer Cleansing Rinsed/ Rinsed/ Irrigated with Irrigated with Saline Saline -Foul Odor after Cleansing No No -Primary Dressing Applied C Hydrogel ($), Mepilex Border, NonAdherent NonAdherent Contact Layer Contact Layer -Other Dressing hydrogel -Primary Dressing Covered/Secured with Dry Gauze & Roll Gauze, Secured with Tape -Mepilex Border 1 #2 Right Arm -Ulcer Cleansing Rinsed/ Rinsed/ Rinsed/ Irrigated with Irrigated with Irrigated with Saline Saline Saline -Foul Odor after Cleansing No No No -Primary Dressing Applied Aquacel AG 4x4 Nugauze, NonAdherent Iodoform Contact Layer -Other Dressing hydrogel hydrogel/ mepliex -Primary Dressing Covered/Secured with Dry Gauze, Dry Gauze & Secured with Roll Gauze, Tape Secured with Tape -Aquacel AG 4x4 1 -Nugauze, Iodoform 1/ 1 Treatment Response Procedure Procedure Procedure Tolerated Well Tolerated Well Tolerated Well Pain Scale: 0-10 Numeric Is Patient Pain Free? Yes Yes Yes WC - Visit Discharge Discharge Condition Stable Stable Ambulatory Status Wheelchair Wheelchair Ambulatory, Wheelchair Transportation Private Auto Private Auto Private Auto Accompanied by family family Notes: Pt refusing tubigrip to both arm and leg. Additional Wound Wound debrided: Upper arm wound Laterality: Right Wound Grade/Stage: Stage II Type of Debridement: Excisional debridement Anesthesia Used: 5% Lidocaine Gel Depth: Down to and including healthy tissue and in the subcutaneous layer Percentage of wound debrided: 100 Instrument Used: 3mm curette Tissue Removed: Devitalized tissue and slough Severity: Fat Layer Exposed Amount of bleeding with debridement: Mild Bleeding Controlled with: Pressure and Compression and gauze Patient tolerated procedure: Patient tolerated procedure well Assessment/Plan Assessment/Plan (1) Skin tear of right upper extremity: CODE(S): S41.111A - Laceration without foreign body of right upper arm, initial encounter (2) Noninfected skin tear of right leg: CODE(S): S81.811A - Laceration without foreign body, right lower leg, initial encounter QUALIFIERS: Encounter type: initial encounter Qualified Code(s): S81.811A - Laceration without foreign body, right lower leg, initial encounter (3) Open wound of right forearm: CODE(S): S51.801A - Unspecified open wound of right forearm, initial encounter QUALIFIERS: Encounter type: initial encounter Qualified Code(s): S51.801A - Unspecified open wound of right forearm, initial encounter (4) Leg wound, right: CODE(S): S81.801A - Unspecified open wound, right lower leg, initial encounter QUALIFIERS: Encounter type: initial encounter Qualified Code(s): S81.801A - Unspecified open wound, right lower leg, initial encounter (5) Methicillin resistant Staphylococcus epidermidis infection: CODE(S): A49.8 - Other bacterial infections of unspecified site; Z16.29 - Resistance to other single specified antibiotic (6) ESRD on peritoneal dialysis: CODE(S): N18.6 - End stage renal disease; Z99.2 - Dependence on renal dialysis (7) Type II diabetes mellitus: CODE(S): E11.9 - Type 2 diabetes mellitus without complications (8) History of implantable cardiac defibrillator (ICD): CODE(S): Z95.810 - Presence of automatic (implantable) cardiac defibrillator (9) Chronic diastolic CHF (congestive heart failure): CODE(S): I50.32 - Chronic diastolic (congestive) heart failure (10) Fall as cause of accidental injury in home as place of occurrence: CODE(S): W19.XXXA - Unspecified fall, initial encounter; Y92.009 - Unspecified place in unspecified non-institutional (private) residence as the place of occurrence of the external cause PLAN: Plan Wound care - Collagen hydrogel covered adaptic and topped with [place] SAP to right forearm wounds and the right upper arm wound daily after washing with soap and water. Compression will be a single layer tubigrip to both her right arm and her right leg. This should help decrease her swelling and help keep her incision in place. Massage lotion onto the healed skin tear on the right anterior leg to help soften scarring. Encouraged to elevate her right arm when sitting to help decrease her edema. Wound culture from 01/07/22 showed Staphylococcus lentus and MRSE and possible fungus. She was started on Levaquin. Will order a separate fungal culture to confirm the presence of fungus before treatment. Encourage nutritional supplementation with protein to help the healing process. Discussed with the patient that if there is a plateau in the healing of the traumatic wounds, then we can consider placement of advanced skin substitute grafts such as Thera-Skin. Follow up one week.
[2022-02-25 13:55] VITALS: BP 152/54; PULSE 71; TEMP 36.4
--- NOTE | 2022-02-25 14:39 | PCM.WC.PN ---
History of Present Illness Date of Service: 02/25/22 Chief Complaint: Traumatic open wounds dorsal proximal right forearm and right anterior leg after a fall at home. History of Wound: 81 year old female presents to the wound center for evaluation of her right forearm skin tear and right anterior leg skin tear that she obtained on 12/30/21 when she fell walking up steps. She went to the ED where x-rays and tetanus shot and they were told that her skin tears would heal. She has a history of End stage renal failure and she is on peritoneal dialysis at home. She also has DM type II, has a significant cardiac history with ICD placed, CHF, and debility. She lives at home and her family is helping to take care of her. At her last visit on 01/07/22, a wound culture was done from the right forearm wound. It was positive for Staphylococcus lentus, MRSE, and possible fungus. She was started on Levaquin. Today she denies fever, chills, nausea and vomiting. She states her appetite is ok. Progress of Wound: Right anterior leg wound remains healed. Right dorsal proximal forearm and right dorsal distal forearm wounds are healed today. The right upper arm wound is also healed. She has a new skin tear to her left forearm that is very superficial. Objective Data Objective Data Vital Signs: Vital Signs Temp Pulse Resp BP O2 Del Method 97.6 F L 71 16 152/54 H Room Air 02/25/22 13:55 02/25/22 13:55 02/18/22 13:51 02/25/22 13:55 02/18/22 13:51 Oxygen Delivery Method Room Air Charges/Coding Visit Charges Office Visits / Consults: 72541 OV L3 Est Physical Exam Const alert and oriented x3 General Appearance: well kempt Orientation / Consciousness: awake HEENT normocephalic Lymph Lymphatic: no lymphadenopathy noted Resp normal respiratory effort, normal air movement and clear to auscultation bilaterally Cardio regular rate and regular rhythm Peripheral Pulses: radial pulses present GI soft to palpation and non-tender Extremity normal capillary refill Extremity Narrative: Decreased mobility. Walks with a walker. Peripheral Pulses: Yes radial pulses present Skin Wound Narrative: Left forearm skin tear that is very superficial. Neuro oriented x3 and moves all extremities Speech: speech normal Psych mental status grossly normal Debridement Note Debridement Note No debridement was completed: No debridement was completed today Post-Debridement Measurements and Additional Note: Post-Debridement Measurements/Treatment WC - Nurse 1 - General Ulcer Assessment Start: 02/04/22 13:19 Freq: Status: Active Protocol: HAFSA Activity Type Activity Date Activity User E-sign Co-sign Detail Recorded Client Recorded Date Recorded By Document 02/04/22 15:21 AK [id number] 02/04/22 15:23 AK Document 02/11/22 14:31 AK [id number] 02/11/22 14:34 AK Document 02/18/22 13:51 BMF [id number] 02/18/22 13:57 BMF Document 02/25/22 13:55 KR [id number] 02/25/22 13:57 KR 02/04/22 02/11/22 02/18/22 15:21 14:31 13:51 WC - Today's Visit Information Type of service Follow-up Visit Follow-up Visit Follow-up Visit (Physician/RAMP BOSS (Physician/RAMP BOSS (Physician/RAMP BOSS ) ) ) Arrival Mode Wheelchair Wheelchair Wheelchair Transfer Assistance None Accompanied by VIRGIL AND VIR[employer]IL IN [employer] Patient Identification Verified (Name & Yes Yes Yes ) Patient Requires Transmission-Based No No Precautions Vital Signs Temperature (97.8 F-99.1 F) 97.3 F L 96.9 F L 96.6 F L Temperature Source Temporal Temporal Temporal Pulse Rate (60-100) 70 69 73 Pulse Location Monitor Monitor Monitor Respiratory Rate (12-18) 16 Respiratory rate source Observation Oxygen Delivery Method Room Air Blood Pressure (90/60-120/80) 133/33 H 133/67 H 149/93 H Blood Pressure Mean (mm Hg) 66 89 111 Source Monitor Monitor Monitor Position Sitting Blood Pressure Location Right Arm History Since Last Visit- (Skip if this is Patient's initial visit) Have you changed medications since your No No No last visit? Any new allergies or adverse reactions No No No Had a fall/change in ADL's that may No No No increase risk of falls Signs or symptoms of abuse and/or No No No neglect since last visit Have you been in the hospital since your No No No last visit? Has dressing in place as prescribed Yes Yes Yes Has compression in place as prescribed N/A N/A Yes Has offloadiing in place as prescribed N/A N/A N/A Experienced any changes in pain level or No No No management Left Footwear Regular Shoe Regular Shoe Regular Shoe Right Footwear Regular Shoe Regular Shoe Regular Shoe Pain Scale: 0-10 Numeric Is Patient Pain Free? No Yes Yes 02/25/22 13:55 WC - Today's Visit Information Type of service Follow-up Visit (Physician/RAMP BOSS ) Arrival Mode Wheelchair Transfer Assistance Accompanied by Patient Identification Verified (Name & Yes ) Patient Requires Transmission-Based Precautions Vital Signs Temperature (97.8 F-99.1 F) 97.6 F L Temperature Source Temporal Pulse Rate (60-100) 71 Pulse Location Monitor Respiratory Rate (12-18) Respiratory rate source Oxygen Delivery Method Blood Pressure (90/60-120/80) 152/54 H Blood Pressure Mean (mm Hg) 86 Source Monitor Position Semi-Fowlers Blood Pressure Location Right Arm History Since Last Visit- (Skip if this is Patient's initial visit) Have you changed medications since your No last visit? Any new allergies or adverse reactions No Had a fall/change in ADL's that may No increase risk of falls Signs or symptoms of abuse and/or No neglect since last visit Have you been in the hospital since your No last visit? Has dressing in place as prescribed Yes Has compression in place as prescribed Yes Has offloadiing in place as prescribed N/A Experienced any changes in pain level or No management Left Footwear Regular Shoe Right Footwear Regular Shoe Pain Scale: 0-10 Numeric Is Patient Pain Free? Yes - Nurse 1 - General Ulcer Measurement Start: 02/04/22 13:19 Freq: Status: Active Protocol: Activity Type Activity Date Activity User E-sign Co-sign Detail Recorded Client Recorded Date Recorded By Document 02/04/22 15:21 AK [id number] 02/04/22 15:23 AK Document 02/11/22 14:31 AK [id number] 02/11/22 14:34 AK Document 02/18/22 13:51 [facility] [id number] 02/18/22 13:57 BMF Document 02/25/22 13:55 KR [id number] 02/25/22 13:57 KR 02/04/22 02/11/22 02/18/22 15:21 14:31 13:51 Wound Center Nurse 1 4-right upper arm -Combined with other wound No -Current Size (cm) - Length 1 -Current Size (cm) - Width 0.8 -Current Size (cm) - Depth 0.1 -Total Square Cm 0.8 -Photo Taken No -Epithelialization Large 67-100% -Tunneling No -Undermining/Tunneling No -Circular Undermining No -Exudate Amt None Present -Wound Margin -Granulation Amt None Present (0 %) -Slough/Fibrin Yes -Necrosis Amt Large (67-100%) -Necrotic Tissue Type Eschar -Texture (Cinthia-wound Skin Appearance) Assessed, Scarring -Moisture (Cinthia-wound Skin Appearance) Assessed -Color (Cinthia-wound Skin Appearance) Assessed -Temperature (Cinthia-wound Skin No Abnormality Appearance) (Pt Warm) -Tenderness on Palpation (Cinthia-wound No Skin Appearance) -Ulcer Cleansing Rinsed/ Irrigated with Saline -Foul Odor after Cleansing No -Anesthetic Used 4% Lidocaine Solution 3-right upper forearm -Combined with other wound No -Current Size (cm) - Length 2.2 -Current Size (cm) - Width 4 -Current Size (cm) - Depth 0.1 -Total Square Cm 8.8 -Photo Taken No -Epithelialization Small 1-33% -Tunneling No -Undermining/Tunneling No -Circular Undermining No -Exudate Amt None Present -Wound Margin Distinct, Outline Attached -Granulation Amt Medium (34-66%) -Granulation Quality [place] -Slough/Fibrin Yes -Necrosis Amt Small (1-33%) -Necrotic Tissue Type Adherent Slough -Texture (Cinthia-wound Skin Appearance) Assessed, Scarring -Moisture (Cinthia-wound Skin Appearance) Assessed -Color (Cinthia-wound Skin Appearance) Assessed -Temperature (Cinthia-wound Skin No Abnormality Appearance) (Pt Warm) -Tenderness on Palpation (Cinthia-wound No Skin Appearance) -Ulcer Cleansing Rinsed/ Irrigated with Saline -Foul Odor after Cleansing No -Anesthetic Used 4% Lidocaine Solution #2 Right Arm -Combined with other wound No No No -Current Size (cm) - Length 2 9.5 3.2 -Current Size (cm) - Width 4 7 4.5 -Current Size (cm) - Depth 0.1 0.1 0.1 -Total Square Cm 8 66.5 14.40 -Date of Last Picture (Recall this 02/04/22 field) -Photo Taken Yes Yes No -Epithelialization Small 1-33% -Tunneling No No No -Undermining/Tunneling No No No -Circular Undermining No No No -Change in Wound Grade/Stage No No -Exudate Amt Large None Present None Present -Exudate Type Serosanguineous -Wound Margin Distinct, Distinct, Distinct, Outline Outline Outline Attached Attached Attached -Granulation Amt Large (67-100%) None Present (0 Large (67-100%) %) -Granulation Quality Hyper- N/A [place] granulation, [place],Red -Slough/Fibrin Yes No Yes -Necrosis Amt Small (1-33%) Small (1-33%) Small (1-33%) -Necrotic Tissue Type Adherent Slough Adherent Slough Adherent Slough -Structure Exposed N/A N/A -Texture (Cinthia-wound Skin Appearance) No Abnormality, No Abnormality, Assessed, Assessed Assessed Scarring -Moisture (Cinthia-wound Skin Appearance) No Abnormality, No Abnormality, Assessed Assessed Assessed -Color (Cinthia-wound Skin Appearance) No Abnormality, No Abnormality, Assessed Assessed Assessed -Temperature (Cinthia-wound Skin No Abnormality No Abnormality No Abnormality Appearance) (Pt Warm) (Pt Warm) (Pt Warm) -Tenderness on Palpation (Cinthia-wound No No No Skin Appearance) -Ulcer Cleansing Rinsed/ Rinsed/ Rinsed/ Irrigated with Irrigated with Irrigated with Saline Saline Saline -Foul Odor after Cleansing No No No -Anesthetic Used 4% Lidocaine 4% Lidocaine 4% Lidocaine Solution Solution Solution #1 Right Self -Combined with other wound No No No -Current Size (cm) - Length 2 0.5 0.1 -Current Size (cm) - Width 1.2 0.2 0.1 -Current Size (cm) - Depth 0.1 0.1 0.1 -Total Square Cm 2.4 0.10 0.01 -Date of Last Picture (Recall this 02/04/22 field) -Photo Taken Yes No -Epithelialization Large 67-100% -Tunneling No No No -Undermining/Tunneling No No No -Circular Undermining No No No -Change in Wound Grade/Stage No No -Exudate Amt Small None Present None Present -Exudate Type Serosanguineous -Wound Margin Distinct, Outline Attached -Granulation Amt Medium (34-66%) Large (67-100%) -Granulation Quality [place],Red [place] -Slough/Fibrin No No -Necrosis Amt None Present (0 None Present (0 %) %) -Structure Exposed N/A N/A -Texture (Cinthia-wound Skin Appearance) No Abnormality, Assessed, Assessed, Assessed Scarring Scarring -Moisture (Cinthia-wound Skin Appearance) No Abnormality, No Abnormality, Assessed,Dry/ Assessed Assessed Scaly -Color (Cinthia-wound Skin Appearance) No Abnormality, No Abnormality, Assessed Assessed Assessed -Temperature (Cinthia-wound Skin No Abnormality No Abnormality No Abnormality Appearance) (Pt Warm) (Pt Warm) (Pt Warm) -Tenderness on Palpation (Cinthia-wound No No No Skin Appearance) -Ulcer Cleansing Rinsed/ Rinsed/ Rinsed/ Irrigated with Irrigated with Irrigated with Saline Saline Saline -Foul Odor after Cleansing No No No -Anesthetic Used 4% Lidocaine 4% Lidocaine 4% Lidocaine Solution Solution Solution 02/25/22 13:55 Wound Center Nurse 1 4-right upper arm -Combined with other wound -Current Size (cm) - Length 0.1 -Current Size (cm) - Width 0.1 -Current Size (cm) - Depth 0.1 -Total Square Cm 0.01 -Photo Taken -Epithelialization -Tunneling -Undermining/Tunneling -Circular Undermining -Exudate Amt None Present -Wound Margin Distinct, Outline Attached -Granulation Amt None Present (0 %) -Slough/Fibrin -Necrosis Amt None Present (0 %) -Necrotic Tissue Type -Texture (Cinthia-wound Skin Appearance) Assessed, Scarring -Moisture (Cinthia-wound Skin Appearance) No Abnormality, Assessed -Color (Cinthia-wound Skin Appearance) No Abnormality, Assessed -Temperature (Cinthia-wound Skin No Abnormality Appearance) (Pt Warm) -Tenderness on Palpation (Cinthia-wound No Skin Appearance) -Ulcer Cleansing Rinsed/ Irrigated with Saline -Foul Odor after Cleansing No -Anesthetic Used 5% Lidocaine Gel 3-right upper forearm -Combined with other wound -Current Size (cm) - Length 0.1 -Current Size (cm) - Width 0.1 -Current Size (cm) - Depth 0.1 -Total Square Cm 0.01 -Photo Taken -Epithelialization -Tunneling -Undermining/Tunneling -Circular Undermining -Exudate Amt None Present -Wound Margin Distinct, Outline Attached -Granulation Amt None Present (0 %) -Granulation Quality -Slough/Fibrin -Necrosis Amt None Present (0 %) -Necrotic Tissue Type -Texture (Cinthia-wound Skin Appearance) Assessed, Scarring -Moisture (Cinthia-wound Skin Appearance) No Abnormality, Assessed -Color (Cinthia-wound Skin Appearance) No Abnormality, Assessed -Temperature (Cinthia-wound Skin No Abnormality Appearance) (Pt Warm) -Tenderness on Palpation (Cinthia-wound No Skin Appearance) -Ulcer Cleansing Rinsed/ Irrigated with Saline -Foul Odor after Cleansing No -Anesthetic Used 5% Lidocaine Gel #2 Right Arm -Combined with other wound -Current Size (cm) - Length 0.1 -Current Size (cm) - Width 0.1 -Current Size (cm) - Depth 0.1 -Total Square Cm 0.01 -Date of Last Picture (Recall this field) -Photo Taken -Epithelialization -Tunneling -Undermining/Tunneling -Circular Undermining -Change in Wound Grade/Stage -Exudate Amt Small -Exudate Type Serosanguineous -Wound Margin Distinct, Outline Attached -Granulation Amt None Present (0 %) -Granulation Quality -Slough/Fibrin -Necrosis Amt None Present (0 %) -Necrotic Tissue Type -Structure Exposed -Texture (Cinthia-wound Skin Appearance) Assessed, Scarring -Moisture (Cinthia-wound Skin Appearance) No Abnormality, Assessed -Color (Cinthia-wound Skin Appearance) No Abnormality, Assessed -Temperature (Cinthia-wound Skin No Abnormality Appearance) (Pt Warm) -Tenderness on Palpation (Cinthia-wound No Skin Appearance) -Ulcer Cleansing Rinsed/ Irrigated with Saline -Foul Odor after Cleansing No -Anesthetic Used 5% Lidocaine Gel #1 Right Self -Combined with other wound -Current Size (cm) - Length -Current Size (cm) - Width -Current Size (cm) - Depth -Total Square Cm -Date of Last Picture (Recall this field) -Photo Taken -Epithelialization -Tunneling -Undermining/Tunneling -Circular Undermining -Change in Wound Grade/Stage -Exudate Amt -Exudate Type -Wound Margin -Granulation Amt -Granulation Quality -Slough/Fibrin -Necrosis Amt -Structure Exposed -Texture (Cinthia-wound Skin Appearance) -Moisture (Cinthia-wound Skin Appearance) -Color (Cinthia-wound Skin Appearance) -Temperature (Cinthia-wound Skin Appearance) -Tenderness on Palpation (Cinthia-wound Skin Appearance) -Ulcer Cleansing -Foul Odor after Cleansing -Anesthetic Used WC - Nurse 2 - General Ulcer CM Notes Start: 02/04/22 13:19 Freq: Status: Active Protocol: Activity Type Activity Date Activity User E-sign Co-sign Detail Recorded Client Recorded Date Recorded By Document 02/04/22 13:19 [id number] 02/04/22 13:30 Document 02/11/22 14:38 [id number] 02/11/22 14:48 Document 02/18/22 14:13 [id number] 02/18/22 14:30 Document 02/25/22 14:11 [id number] 02/25/22 14:15 02/04/22 02/11/22 02/18/22 13:19 14:38 14:13 Wound Center Nurse 2 4-right upper arm -Time 14:42 14:20 -Correct Patient Yes Yes -Correct Side, Site, Position Yes Yes -Correct Procedure Yes Yes -Procedure Performed Yes Yes -Type of Procedure Debridement Debridement -Clinical Debridement Subcutaneous Subcutaneous -Tissue Removed Subcutaneous Subcutaneous -Post Debridement (cm) - Length 0.9 1.0 -Post Debridement (cm) - Width 1.0 0.7 -Post Debridement (cm) - Depth 0.1 0.1 -Total Square (Post) (cm) 0.90 0.70 -Area of Debridement (cm) - Length 0.9 1.0 -Area of Debridement (cm) - Width 1.0 0.7 -Total Square (Area) (cm) 0.90 0.70 -Tunneling No No -Undermining/Tunneling No No -Circular Undermining No No -Wound/Ulcer Outcome Not Healed Not Healed -Ulcer Cleansing Rinsed/ Rinsed/ Irrigated with Irrigated with Saline Saline -Foul Odor after Cleansing No No -Bioengineered Tissue No No -Bleeding Controlled with Pressure Pressure -Treatment Response Procedure Procedure Tolerated Well Tolerated Well -Offloading No No -Debridement - Subq, 1st 20sq cm Yes No -Debridement, SubQ, ea addt'l 20sq cm 1 or part thereof 3-right upper forearm -Time 14:41 14:18 -Correct Patient Yes Yes -Correct Side, Site, Position Yes Yes -Correct Procedure Yes Yes -Procedure Performed Yes Yes -Type of Procedure Debridement Debridement -Clinical Debridement Subcutaneous Subcutaneous -Tissue Removed Subcutaneous Subcutaneous -Post Debridement (cm) - Length 4.0 2.0 -Post Debridement (cm) - Width 4.5 1.5 -Post Debridement (cm) - Depth 0.1 0.1 -Total Square (Post) (cm) 18.00 3.00 -Area of Debridement (cm) - Length 4.0 2.0 -Area of Debridement (cm) - Width 4.5 1.5 -Total Square (Area) (cm) 18.00 3.00 -Tunneling No No -Undermining/Tunneling No No -Circular Undermining No No -Wound/Ulcer Outcome Not Healed Not Healed -Ulcer Cleansing Rinsed/ Rinsed/ Irrigated with Irrigated with Saline Saline -Foul Odor after Cleansing No No -Bioengineered Tissue No No -Bleeding Controlled with Pressure Pressure -Treatment Response Procedure Procedure Tolerated Well Tolerated Well -Offloading No No -Debridement - Subq, 1st 20sq cm No No #2 Right Arm -Time 13:25 14:43 14:20 -Correct Patient Yes Yes Yes -Correct Side, Site, Position Yes Yes Yes -Correct Procedure Yes Yes Yes -Procedure Performed Yes Yes Yes -Type of Procedure Debridement Debridement Debridement -Clinical Debridement Subcutaneous Subcutaneous Subcutaneous -Tissue Removed Subcutaneous Subcutaneous Subcutaneous -Post Debridement (cm) - Length 3.7 2.5 2.6 -Post Debridement (cm) - Width 5.5 4.8 3.5 -Post Debridement (cm) - Depth 0.1 0.2 0.1 -Total Square (Post) (cm) 20.35 12.00 9.10 -Area of Debridement (cm) - Length 3.7 2.5 2.6 -Area of Debridement (cm) - Width 5.5 4.8 3.5 -Total Square (Area) (cm) 20.35 12.00 9.10 -Tunneling No No No -Undermining/Tunneling No No No -Circular Undermining No No No -Wound/Ulcer Outcome Not Healed Not Healed Not Healed -Ulcer Cleansing Rinsed/ Rinsed/ Rinsed/ Irrigated with Irrigated with Irrigated with Saline Saline Saline -Foul Odor after Cleansing No No No -Bioengineered Tissue No No No -Bleeding Controlled with Pressure Pressure Pressure -Treatment Response Procedure Procedure Procedure Tolerated Well Tolerated Well Tolerated Well -Offloading No No No -Debridement - Subq, 1st 20sq cm Yes No Yes -Debridement, SubQ, ea addt'l 20sq cm 1 or part thereof #1 Right Self -Time 13:19 14:44 -Correct Patient Yes Yes No -Correct Side, Site, Position Yes Yes No -Correct Procedure Yes Yes No -Procedure Performed Yes Yes No -Type of Procedure Debridement Debridement -Clinical Debridement Subcutaneous Subcutaneous -Tissue Removed Subcutaneous Subcutaneous -Post Debridement (cm) - Length 4.5 0.5 0 -Post Debridement (cm) - Width 0.7 0.2 0 -Post Debridement (cm) - Depth 0.1 0.1 0 -Total Square (Post) (cm) 3.15 0.10 0 -Area of Debridement (cm) - Length 4.5 0.5 0 -Area of Debridement (cm) - Width 0.7 0.2 0 -Total Square (Area) (cm) 3.15 0.10 0 -Tunneling No No -Undermining/Tunneling No No -Circular Undermining No No -Wound/Ulcer Outcome Not Healed Not Healed Healed- Epithelialized -Ulcer Cleansing Rinsed/ Rinsed/ Irrigated with Irrigated with Saline Saline -Foul Odor after Cleansing No No -Bioengineered Tissue No No -Bleeding Controlled with Pressure Pressure -Treatment Response Procedure Procedure Tolerated Well Tolerated Well -Offloading No No -Debridement - Subq, 1st 20sq cm No No Pain Scale: 0-10 Numeric Is Patient Pain Free? Yes Yes Yes 02/25/22 14:11 Wound Center Nurse 2 4-right upper arm -Time -Correct Patient No -Correct Side, Site, Position No -Correct Procedure No -Procedure Performed No -Type of Procedure -Clinical Debridement -Tissue Removed -Post Debridement (cm) - Length -Post Debridement (cm) - Width -Post Debridement (cm) - Depth -Total Square (Post) (cm) -Area of Debridement (cm) - Length -Area of Debridement (cm) - Width -Total Square (Area) (cm) -Tunneling -Undermining/Tunneling -Circular Undermining -Wound/Ulcer Outcome Not Healed -Ulcer Cleansing -Foul Odor after Cleansing -Bioengineered Tissue -Bleeding Controlled with -Treatment Response -Offloading -Debridement - Subq, 1st 20sq cm -Debridement, SubQ, ea addt'l 20sq cm or part thereof 3-right upper forearm -Time -Correct Patient No -Correct Side, Site, Position No -Correct Procedure No -Procedure Performed No -Type of Procedure -Clinical Debridement -Tissue Removed -Post Debridement (cm) - Length -Post Debridement (cm) - Width -Post Debridement (cm) - Depth -Total Square (Post) (cm) -Area of Debridement (cm) - Length -Area of Debridement (cm) - Width -Total Square (Area) (cm) -Tunneling -Undermining/Tunneling -Circular Undermining -Wound/Ulcer Outcome Not Healed -Ulcer Cleansing -Foul Odor after Cleansing -Bioengineered Tissue -Bleeding Controlled with -Treatment Response -Offloading -Debridement - Subq, 1st 20sq cm #2 Right Arm -Time -Correct Patient No -Correct Side, Site, Position No -Correct Procedure No -Procedure Performed No -Type of Procedure -Clinical Debridement -Tissue Removed -Post Debridement (cm) - Length 0 -Post Debridement (cm) - Width 0 -Post Debridement (cm) - Depth 0 -Total Square (Post) (cm) 0 -Area of Debridement (cm) - Length 0 -Area of Debridement (cm) - Width 0 -Total Square (Area) (cm) 0 -Tunneling -Undermining/Tunneling -Circular Undermining -Wound/Ulcer Outcome Healed- Epithelialized -Ulcer Cleansing -Foul Odor after Cleansing -Bioengineered Tissue -Bleeding Controlled with -Treatment Response -Offloading -Debridement - Subq, 1st 20sq cm -Debridement, SubQ, ea addt'l 20sq cm or part thereof #1 Right Self -Time -Correct Patient -Correct Side, Site, Position -Correct Procedure -Procedure Performed -Type of Procedure -Clinical Debridement -Tissue Removed -Post Debridement (cm) - Length -Post Debridement (cm) - Width -Post Debridement (cm) - Depth -Total Square (Post) (cm) -Area of Debridement (cm) - Length -Area of Debridement (cm) - Width -Total Square (Area) (cm) -Tunneling -Undermining/Tunneling -Circular Undermining -Wound/Ulcer Outcome -Ulcer Cleansing -Foul Odor after Cleansing -Bioengineered Tissue -Bleeding Controlled with -Treatment Response -Offloading -Debridement - Subq, 1st 20sq cm Pain Scale: 0-10 Numeric Is Patient Pain Free? Yes WC - Nurse 3 - General Ulcer D/C NN Start: 02/04/22 13:19 Freq: Status: Active Protocol: Activity Type Activity Date Activity User E-sign Co-sign Detail Recorded Client Recorded Date Recorded By Document 02/04/22 13:40 DL [id number] 02/04/22 13:44 DL Document 02/11/22 14:56 DL [id number] 02/11/22 14:59 DL Document 02/18/22 14:40 DL [id number] 02/18/22 14:46 DL Document 02/25/22 14:15 JF [id number] 02/25/22 14:15 JF 02/04/22 02/11/22 02/18/22 13:40 14:56 14:40 Wound Care Nurse 3 4-right upper arm -Ulcer Cleansing Rinsed/ Rinsed/ Irrigated with Irrigated with Saline Saline -Foul Odor after Cleansing No No -Primary Dressing Applied C Hydrogel ($), C Hydrogel ($), NonAdherent Mepilex Border, Contact Layer NonAdherent Contact Layer -Primary Dressing Covered/Secured with Dry Gauze & Roll Gauze, Secured with Tape -Other Covering tubigrip to R arm -Mepilex Border 1 3-right upper forearm -Ulcer Cleansing Rinsed/ Rinsed/ Irrigated with Irrigated with Saline Saline -Foul Odor after Cleansing No No -Primary Dressing Applied C Hydrogel ($), Mepilex Border, NonAdherent NonAdherent Contact Layer Contact Layer -Other Dressing hydrogel -Primary Dressing Covered/Secured with Dry Gauze & Roll Gauze, Secured with Tape -Mepilex Border 1 #2 Right Arm -Ulcer Cleansing Rinsed/ Rinsed/ Rinsed/ Irrigated with Irrigated with Irrigated with Saline Saline Saline -Foul Odor after Cleansing No No No -Primary Dressing Applied Aquacel AG 4x4 Nugauze, NonAdherent Iodoform Contact Layer -Other Dressing hydrogel hydrogel/ mepliex -Primary Dressing Covered/Secured with Dry Gauze, Dry Gauze & Secured with Roll Gauze, Tape Secured with Tape -Aquacel AG 4x4 1 -Nugauze, Iodoform 1/4 1 #1 Right Self -Ulcer Cleansing Rinsed/ Rinsed/ Irrigated with Irrigated with Saline Saline -Foul Odor after Cleansing No No -Primary Dressing Applied NonAdherent NonAdherent Contact Layer Contact Layer -Other Dressing hydrogel hydrogel -Primary Dressing Covered/Secured with Dry Gauze & Dry Gauze & Roll Gauze, Roll Gauze, Secured with Secured with Tape Tape Treatment Response Procedure Procedure Procedure Tolerated Well Tolerated Well Tolerated Well Pain Scale: 0-10 Numeric Is Patient Pain Free? Yes Yes Yes WC - Visit Discharge Discharge Condition Stable Stable Ambulatory Status Wheelchair Wheelchair Ambulatory, Wheelchair Transportation Private Auto Private Auto Private Auto Accompanied by family family Medication Reconcilliation completed & provided to patient/care provider Clinical Summary of Care Provided Notes: Pt refusing tubigrip to both arm and leg. 02/25/22 14:15 Wound Care Nurse 3 4-right upper arm -Ulcer Cleansing -Foul Odor after Cleansing -Primary Dressing Applied -Primary Dressing Covered/Secured with -Other Covering -Mepilex Border 3-right upper forearm -Ulcer Cleansing -Foul Odor after Cleansing -Primary Dressing Applied -Other Dressing -Primary Dressing Covered/Secured with -Mepilex Border #2 Right Arm -Ulcer Cleansing -Foul Odor after Cleansing -Primary Dressing Applied -Other Dressing -Primary Dressing Covered/Secured with -Aquacel AG 4x4 -Nugauze, Iodoform 1/4 #1 Right Self -Ulcer Cleansing -Foul Odor after Cleansing -Primary Dressing Applied -Other Dressing -Primary Dressing Covered/Secured with Treatment Response Pain Scale: 0-10 Numeric Is Patient Pain Free? Yes WC - Visit Discharge Discharge Condition Stable Ambulatory Status Wheelchair Transportation Private Auto Accompanied by DAUGHTER Medication Reconcilliation completed & Yes provided to patient/care provider Clinical Summary of Care Provided Yes Notes: Assessment/Plan Assessment/Plan (1) Open wound of right forearm: CODE(S): S51.801A - Unspecified open wound of right forearm, initial encounter QUALIFIERS: Encounter type: initial encounter Qualified Code(s): S51.801A - Unspecified open wound of right forearm, initial encounter (2) Noninfected skin tear of right leg: CODE(S): S81.811A - Laceration without foreign body, right lower leg, initial encounter QUALIFIERS: Encounter type: initial encounter Qualified Code(s): S81.811A - Laceration without foreign body, right lower leg, initial encounter (3) Methicillin resistant Staphylococcus epidermidis infection: CODE(S): A49.8 - Other bacterial infections of unspecified site; Z16.29 - Resistance to other single specified antibiotic (4) ESRD on peritoneal dialysis: CODE(S): N18.6 - End stage renal disease; Z99.2 - Dependence on renal dialysis (5) Skin tear of right upper extremity: CODE(S): S41.111A - Laceration without foreign body of right upper arm, initial encounter (6) Type II diabetes mellitus: CODE(S): E11.9 - Type 2 diabetes mellitus without complications (7) Leg wound, right: CODE(S): S81.801A - Unspecified open wound, right lower leg, initial encounter QUALIFIERS: Encounter type: initial encounter Qualified Code(s): S81.801A - Unspecified open wound, right lower leg, initial encounter (8) Fall as cause of accidental injury in home as place of occurrence: CODE(S): W19.XXXA - Unspecified fall, initial encounter; Y92.009 - Unspecified place in unspecified non-institutional (private) residence as the place of occurrence of the external cause (9) History of implantable cardiac defibrillator (ICD): CODE(S): Z95.810 - Presence of automatic (implantable) cardiac defibrillator (10) Chronic diastolic CHF (congestive heart failure): CODE(S): I50.32 - Chronic diastolic (congestive) heart failure PLAN: Plan Wound care - Collagen hydrogel covered adaptic topped with gauze to left forearm skin tear which is superficial. Patient's daughter and daughter in law are feeling comfortable helping with wound care of minor bumps/skin tears. She has new skin tears frequently due to bumping into things or falling. Discussed keeping legs and arms covered to protect them. Massage lotion onto the healed areas to help soften scarring. Wound culture from 01/07/22 showed Staphylococcus lentus and MRSE and possible fungus. She was started on Levaquin. Will order a separate fungal culture to confirm the presence of fungus before treatment. Encourage nutritional supplementation with protein to help the healing process. Follow up as needed.
== END 2022-02-27 14:40 | disposition home or self-care (01) ==
LOC: WC 13:45
PROVIDERS: PCP Family Medicine; Visit Provider Nurse Practitioner Family
DX: S81.801A Unspecified open wound, right lower leg, initial encounter (principal); Z99.2 Dependence on renal dialysis; I50.32 Chronic diastolic (congestive) heart failure; E11.22 Type 2 diabetes mellitus with diabetic chronic kidney disease; N18.6 End stage renal disease; A49.8 Other bacterial infections of unspecified site; Z95.810 Presence of automatic (implantable) cardiac defibrillator; S81.811A Laceration without foreign body, right lower leg, initial encounter; S41.101A Unspecified open wound of right upper arm, initial encounter; W19.XXXA Unspecified fall, initial encounter; S51.801A Unspecified open wound of right forearm, initial encounter; R53.81 Other malaise; Y92.009 Unspecified place in unspecified non-institutional (private) residence as the place of occurrence of the external cause; Z16.29 Resistance to other single specified antibiotic
CPT/HCPCS: 11042; 11045; 99213; G0463

== ENCOUNTER 2022-03-12 14:42 | Emergency (ER) | payer MEDICARE, SELFPAY ==
[2022-03-12 14:43] VITALS: BP 155/61; PULSE 82; RESP 16; TEMP 36.3; O2SAT 97; BMI 38.5
--- NOTE | 2022-03-12 14:58 | CT_ITS ---
INDICATION: mental status change EXAMINATION: CT BRAIN - CT Head or Brain W/O Contrast Injection TECHNIQUE: Multiple axial images were obtained of the head without intravenous contrast. A radiation dose optimization technique was used for this scan. IV Contrast dosage and agent: None. COMPARISON: 12/30/2021 FINDINGS: BRAIN PARENCHYMA: No intra- or extra-axial hemorrhage. No evidence of acute infarct. No intracranial mass or mass effect. Posterior fossa structures are unremarkable. Volume loss with low attenuation of the periventricular white matter typical of chronic small vessel disease. CSF SPACES: Stable. No hydrocephalus. Basal cisterns are patent. CALVARIUM, SKULL BASE, PARANASAL SINUSES AND MASTOID AIR CELLS: Stable chronic mucoperiosteal disease. No discrete lytic or blastic abnormalities. CT/Brain/Head without Contrast IMPRESSION: Volume loss with chronic white matter changes. No acute intracranial findings. Electronically Signed: Stephane Carter MD at 16:33 EST ,
--- NOTE | 2022-03-12 14:58 | EKG12_ITS ---
Test Reason : CONFUSION Blood Pressure : / mmHG Vent. Rate : 070 BPM Atrial Rate : 070 BPM P-R Int : 370 ms QRS Dur : 070 ms QT Int : 398 ms P-R-T Axes : 000 -27 082 degrees QTc Int : 429 ms AV dual-paced rhythm with prolonged AV conduction Abnormal ECG Confirmed by ANTONIETA TAYLOR, SHANA ([id number]), health editor LENNOX MOCTEZUMA ([id number]) on 03/13/2022 12:00:28 PM Referred By: Confirmed By:SHANA FUNG MD
--- NOTE | 2022-03-12 15:00 | EDS_ITS ---
HPI History of Present Illness Chief Complaint: Confusion Detail of Chief Complaint: Confusion and hallucinations Informant: patient and family Narrative Narrative: Patient presents the emergency department with complaint of hallucinations that have been going on for about 3 weeks. Patient seeing mice and rats and gerbils and squirrels in people that are not there. Patient lives alone. Patient was treated for a urinary tract infection and apparently a culture had been sent and that was 3 weeks ago and patient also just finished her antibiotics 5 days ago. Patient has gotten no better. Patient does do peritoneal dialysis. She is not had a fever. She denies cough. She denies chest pain. She denies headache. She denies fall or head injury. She denies new medications. [facility] Medical History Acute respiratory failure Asthma Bilateral carotid artery stenosis Chronic anemia Chronic diastolic CHF (congestive heart failure) Chronic kidney disease ESRD on peritoneal dialysis Essential hypertension GERD (gastroesophageal reflux disease) Glaucoma Hyperlipidemia Hyperparathyroidism, secondary renal Hypothyroidism Leg wound, right Lichenification and lichen simplex chronicus Major depressive disorder Methicillin resistant Staphylococcus epidermidis infection Neurodermatitis Non-proliferative diabetic retinopathy, both eyes Nonobstructive atherosclerosis of coronary artery Normocytic anemia Nummular eczema Obesity Open wound of right forearm 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) Recurrent syncope (03/28/21) Severe protein-calorie malnutrition Stage 3 chronic kidney disease Stenosis of left carotid artery Torsades de pointes (03/28/21) Transient visual loss, right eye (11/2020) Type II diabetes mellitus Ventricular tachycardia Vitamin B 12 deficiency Home Medications atorvastatin 80 mg tablet 80 mg PO QHS 10/12/18 [History Last Taken Unknown] omeprazole 40 mg capsule,delayed release 40 mg PO DAILY 10/12/18 [History Last Taken Unknown] albuterol sulfate 90 mcg/actuation aerosol inhaler 2 puff inhalation Q4H PRN sh ortness 10/13/18 [History Last Taken Unknown] montelukast 10 mg tablet 10 mg PO DAILY 10/26/19 [History Last Taken Unknown] pioglitazone 15 mg tablet 30 mg PO DAILY 03/28/21 [History Last Taken Unknown] sennosides 8.6 mg tablet 8.6 mg PO BID 04/13/21 [History Last Taken Unknown] acetaminophen 325 mg tablet 650 mg PO Q4H PRN pain/fever 05/10/21 [History Last Taken Unknown] buspirone 5 mg tablet 15 mg PO TID 05/10/21 [History Last Taken Unknown] cyanocobalamin (vitamin B-12) 2,500 mcg sublingual tablet (Vitamin B-12) 2,500 mcg sublingual QWEEK 05/10/21 [History Last Taken Unknown] ergocalciferol (vitamin D2) 50,000 unit tablet 50,000 unit PO QWEEK 05/10/21 [History Last Taken Unknown] gentamicin 0.1 % topical cream 1 applic topical DAILY 05/10/21 [History Last Taken Unknown] ipratropium 0.5 mg-albuterol 3 mg (2.5 mg base)/3 mL nebulization soln 3 ml inhalation Q6H PRN sob 05/10/21 [History Last Taken Unknown] levothyroxine 137 mcg tablet 137 mcg PO DAILY 05/10/21 [History Last Taken Unkn own] potassium chloride 20 mEq tablet,extended release 20 meq PO DAILY 05/10/21 [History Last Taken Unknown] aspirin 81 mg capsule 81 mg PO DAILY 02/08/22 [History Last Taken Unknown] bupropion HCl 100 mg tablet 100 mg PO TID 02/08/22 [History Last Taken Unknown] fluticasone propionate 110 mcg/actuation HFA aerosol inhaler (Flovent HFA) 1 puff inhalation BID PRN Wheezing 02/08/22 [History Last Taken Unknown] insulin glargine 100 unit/mL (3 mL) subcutaneous pen (Lantus Solostar U-100 Insulin) 8 unit subcut PRN PRN check 02/08/22 [History Last Taken Unknown] latanoprost 0.005 % eye drops 1 drp ophthalmic (eye) ONCE 02/08/22 [History Last Taken Unknown] magnesium oxide 500 mg tablet 400 mg PO DAILY 02/08/22 [History Last Taken Unknown] meclizine 12.5 mg tablet 12.5 mg PO BID 02/08/22 [History Last Taken Unknown] tiotropium bromide 2.5 mcg/actuation mist for inhalation (Spiriva Respimat) 2 puff inhalation QAM PRN Wheezing 02/08/22 [History Last Taken Unknown] carvedilol 6.25 mg tablet 12.5 mg PO BID 02/26/22 [History Last Taken Unknown] nitrofurantoin monohydrate/macrocrystals 100 mg capsule (Macrobid) 100 mg PO BID #14 caps 03/12/22 [Rx Last Taken Unknown] Allergy/AdvReac Type Severity Reaction Status Date / Time metformin [From Glucophage] Allergy Severe renal Verified 03/12/22 14:43 failure adhesive Allergy Intermediate blisters Verified 03/12/22 14:43 oxycodone Allergy Intermediate hallucinati Verified 03/12/22 14:43 ons tramadol Allergy Intermediate Vomiting Verified 03/12/22 14:43 ERIC Inhibitors AdvReac Intermediate cough Verified 03/12/22 14:43 Family History Father Heart disease Hypertension Suicide Mother Hypertension CVA (cerebral vascular accident) COPD (chronic obstructive pulmonary disease) CAD (coronary artery disease) Surgical History History of bilateral knee replacement (1989) History of breast biopsy History of implantable cardiac defibrillator (ICD) (04/02/21) History of left heart catheterization (03/28/21) History of open reduction and internal fixation (ORIF) procedure History of right cataract extraction (10/03/11) History of temporary cardiac pacemaker treatment (03/28/21) History of tonsillectomy Social History household members: none Smoking Status: Never smoker alcohol intake: never substance use type: does not use caffeine: Yes Type: coffee Number of servings: 2 ROS ROS ED Review of Systems ROS Unobtainable: other Constitutional Constitutional ED: Reports lethargy; Denies chills, fever(s), sweats or weight loss Eyes Eyes: Denies blurry vision, change in vision or diplopia ENT ENT ED: Denies rhinorrhea or sore throat Cardiovascular Cardiovascular: Denies chest pain, orthopnea or racing heartbeat Respiratory/Chest Respiratory/Chest: Denies cough, dyspnea, dyspnea on exertion, orthopnea or sputum Gastrointestinal Gastrointestinal: Denies abdominal pain, diarrhea, nausea or vomiting Genitourinary Genitourinary ED: Denies dysuria, hematuria or urinary frequency Musculoskeletal Musculoskeletal: Denies arthralgias, back pain, myalgias or neck pain Integumentary Denies abscess, Abrasions or rash Neurologic Neurologic: Reports other Details: Hallucinations ; Denies headache(s) or weakness Psychiatric Psychiatric: Denies anxiety, depression or suicidal thoughts Endocrine Endocrinology: Denies polydipsia, polyphagia or polyuria Hematologic/Lymphatic Hematologic/Lymphatic: Denies easy bleeding, easy bruising or lymphadenopathy Allergic/Immunologic Allergic/Immunologic ED: Denies mouth swelling, tongue swelling or urticaria EXAM Physical Exam Const Vital Signs: 03/12/22 14:43 03/12/22 15:18 03/12/22 15:18 Temperature 97.3 F L 97.3 F L Temperature Source Temporal Temporal Pulse Rate 82 70 70 Respiratory Rate 16 16 16 Blood Pressure 155/61 H 147/61 H 147/61 H Blood Pressure Mean 92 89 89 Pulse Ox 97 97 97 Oxygen Delivery Method Room Air Room Air Room Air 03/12/22 17:29 03/12/22 18:16 Temperature 97.9 F Temperature Source Temporal Pulse Rate 72 70 Respiratory Rate 18 16 Blood Pressure 167/78 H 148/90 H Blood Pressure Mean 107 Pulse Ox 98 97 Oxygen Delivery Method Room Air Positive well nourished and well developed General Appearance ED: well developed and NAD HEENT Reports TM's clear and moist mucous membranes normocephalic and atraumatic; Negative for trauma or tenderness Tympanic Membrane ED: Yes TM's clear Eyes PERRL and EOMs intact bilaterally General Eye ED: Negative for pale conjunctiva or scleral icterus Neck no lymphadenopathy, supple and no JVD General: Negative for tenderness Chest Wall inspection of chest normal and palpation of chest normal Chest: Negative for tenderness Resp normal respiratory effort and clear to auscultation bilaterally Effort and Inspection: Negative for respiratory distress or pain with movement Auscultation: Negative for rhonchi, wheezes or diminished lung sounds Cardio regular rate, regular rhythm, S1 normal heart sound, S2 normal heart sound and no murmurs Peripheral Pulses: pulses 2+ throughout GI normal to inspection, nondistended, normoactive bowel sounds, soft to palpation, non-tender, non-distended and no masses Back/Spine no CVA tenderness and no thoracic nor lumbar tenderness Extremity normal to inspection General Extremety ED: Negative for edema General Extremity: Negative for edema Neuro oriented x3, CN's II-XII intact bilaterally, no sensory deficits noted and gait normal Sensorium / Orientation: awake, alert, oriented to person, oriented to place and oriented to time Motor Exam: strength 5/5 throughout and strength abnormal Psych mental status grossly normal Skin no rashes or lesions noted and no wounds MDM MDM MDM Narrative Medical decision making narrative: IV line established on arrival. Patient was given normal saline. CT scan of the brain without contrast showed age-related changes. CBC with differential showed a normal white count of 4.9, hemoglobin 12, hematocrit 38, platelets 202. Chemistries unremarkable. BUN was 32 and creatinine 7.07. Lactate was normal 1.9. LFTs were normal. Urinalysis did not show signs of infection I did send off a culture. I did discuss case with hospitalist who recommended having patient seen by crisis to evaluate for [facility] placement. Family does not want patient transferred to a [facility] facility and they are adamant they feel this is related to UTI as its always been. At this point they understand the cultures were sent and they are comfortable taking her home. I will cover her empirically with Bactrim for 5 days at least until her culture results return. Advised to return if there are unable to care for patient at home. Or condition worsen anyway. Patient advised to follow-up with her primary care physician within next 3 to 5 days Lab Data Attestation: I reviewed the patient's lab results. Labs: Laboratory Results - last 24 hr 03/12/22 03/12/22 03/12/22 15:15 15:15 15:15 WBC 4.9 RBC 3.55 L Hgb 12.1 Hct 38.7 MCV 109.0 H MCH 34.1 H MCHC 31.3 L RDW Std Deviation 58.7 H RDW Coeff of Alanna 14.8 H Plt Count 202 MPV 10.4 Immature Gran % (Auto) 0.400 Neut % (Auto) 49.2 Lymph % (Auto) 34.8 [place] % (Auto) 11.3 H Eos % (Auto) 3.5 Baso % (Auto) 0.8 Absolute Neuts (auto) 2.4 Absolute Lymphs (auto) 1.69 Nucleated RBC % 0 Sodium 139 Potassium 5.0 Chloride 103 Carbon Dioxide 29.0 Anion Gap 7 BUN 32 H Creatinine 7.07 H Estim Creat Clear Calc 4.79 Est GFR (MDRD) Af Amer 7 L Est GFR (MDRD) Non-Af 6 L BUN/Creatinine Ratio 4.5 L Glucose 143 H Lactic Acid 0.9 Calcium 7.5 L Total Bilirubin 0.30 AST 25 ALT 25 Alkaline Phosphatase 121 H Troponin I High Sens 25 Total Protein 5.9 L Albumin 2.0 L Globulin 3.9 Albumin/Globulin Ratio 0.5 L Urine Color Urine Clarity Urine pH Ur Specific [place] Urine Protein Urine Glucose (UA) Urine Ketones Urine Occult Blood Urine Nitrite Urine Bilirubin Urine Urobilinogen Ur Leukocyte Esterase Urine RBC Urine WBC Ur Squamous Epith Cells Urine Bacteria Urine Mucus 03/12/22 15:30 WBC RBC Hgb Hct MCV MCH MCHC RDW Std Deviation RDW Coeff of Alanna Plt Count MPV Immature Gran % (Auto) Neut % (Auto) Lymph % (Auto) [place] % (Auto) Eos % (Auto) Baso % (Auto) Absolute Neuts (auto) Absolute Lymphs (auto) Nucleated RBC % Sodium Potassium Chloride Carbon Dioxide Anion Gap BUN Creatinine Estim Creat Clear Calc Est GFR (MDRD) Af Amer Est GFR (MDRD) Non-Af BUN/Creatinine Ratio Glucose Lactic Acid Calcium Total Bilirubin AST ALT Alkaline Phosphatase Troponin I High Sens Total Protein Albumin Globulin Albumin/Globulin Ratio Urine Color Yellow Urine Clarity Clear Urine pH 8.0 Ur Specific [place] 1.015 Urine Protein 100 H Urine Glucose (UA) Normal Urine Ketones Negative Urine Occult Blood 25 H Urine Nitrite Negative Urine Bilirubin Negative Urine Urobilinogen Normal Ur Leukocyte Esterase 25 H Urine RBC 0-5 SEEN Urine WBC 0 SEEN Ur Squamous Epith Cells 0-5 SEEN Urine Bacteria 0 SEEN Urine Mucus 0 SEEN Radiography Chest X-Ray - ED: 1 View Diagnostic Testing: Clinical Impression(s) from Imaging Studies Brain CT 03/12/22 14:58 IMPRESSION: Volume loss with chronic white matter changes. No acute intracranial findings. Electronically Signed: Stephane Carter MD at 16:33 EST , Chest X-Ray 03/12/22 16:00 IMPRESSION: No radiographic evidence of acute cardiopulmonary disease. Electronically Signed: Stephane Carter MD at 16:41 EST , Lumbar Spine X-Ray 03/12/22 16:00 IMPRESSION: Questionable L1 spinous process avulsion fracture. This could be artifactual. Correlate with point tenderness and possible CT L-spine. Severe multilevel degenerative disc disease and spondylosis. Electronically Signed: Wolf Wesley MD at 17:33 EST , ADDENDUM: 03/12/22 1755 IMPRESSION: Questionable L1 spinous process avulsion fracture. This could be artifactual. Correlate with point tenderness and possible CT L-spine. Severe multilevel degenerative disc disease and spondylosis. N.B. : Alvina Rodriguez MD, confirmed on 03/12/2022 17:48:26 (ET) that the healthcare facility has received the radiology report. Electronically Signed: Wolf Wesley MD at 17:33 EST , 1 view chest x-ray obtained interpreted by myself no acute disease process. Radiology in agreement. EKG Initial EKG: Comments: Sinus rhythm with a ventricular rate of 70 bpm with AV dual paced rhythm noted Discharge Plan Triage Chief Complaint: Confusion ED Provider: Alvina Rodriguez Dx/Rx/DC Orders Clinical Impression: Altered mental status, Adult failure to thrive, Hallucinations, visual Instructions: ED ALOC, ED Confusion Prescriptions: New nitrofurantoin monohyd/m-cryst [Macrobid] 100 mg capsule 100 mg PO BID Qty: 14 0RF Rx Instructions: must administer with a meal/food No Action omeprazole 40 mg capsule,delayed release(DR/EC) 40 mg PO DAILY atorvastatin 80 mg tablet 80 mg PO QHS albuterol sulfate 90 mcg/actuation HFA aerosol inhaler 2 puff INHALATION Q4H PRN (Reason: shortness ) cyanocobalamin (vitamin B-12) [Vitamin B-12] 2,500 mcg tablet, sublingual 2,500 mcg SUBLINGUAL QWEEK Rx Instructions: weds and fri 1000mg levothyroxine 137 mcg tablet 137 mcg PO DAILY Rx Instructions: Takes 1 tab daily except 1 1/2 tabs on Friday and Friday. latanoprost 0.005 % drops 1 drp OPHTHALMIC ONCE montelukast 10 mg tablet 10 mg PO DAILY sennosides 8.6 mg tablet 8.6 mg PO BID Spiriva Respimat 2.5 mcg/actuation mist 2 puff inhalation QAM PRN (Reason: Wheezing) buspirone 5 mg tablet 15 mg PO TID ergocalciferol (vitamin D2) 50,000 unit tablet 50,000 unit PO QWEEK gentamicin 0.1 % cream 1 applic topical DAILY potassium chloride 20 mEq tablet extended release 20 meq PO DAILY Rx Instructions: MWF acetaminophen 325 mg tablet 650 mg PO Q4H PRN (Reason: pain/fever) bupropion HCl 100 mg tablet 100 mg PO TID Rx Instructions: administer 6 hours apart meclizine 12.5 mg tablet 12.5 mg PO BID magnesium oxide 500 mg tablet 400 mg PO DAILY aspirin 81 mg capsule 81 mg PO DAILY pioglitazone 15 mg Tablet 30 mg PO DAILY ipratropium-albuterol 0.5 mg-3 mg(2.5 mg base)/3 mL solution for nebulization 3 ml INHALATION Q6H PRN (Reason: sob) fluticasone propionate [Flovent HFA] 110 mcg/actuation HFA aerosol inhaler 1 puff INHALATION BID PRN (Reason: Wheezing) insulin glargine [Lantus Solostar U-100 Insulin] 100 unit/mL (3 mL) insulin pen 8 unit subcut PRN PRN (Reason: check) carvedilol 6.25 mg tablet 12.5 mg PO BID Rx Instructions: must administer with a meal/food Primary Care Provider: Satnam Saldana Referrals: Satnam Saldana MD [Primary Care Provider] - Disposition Disposition: Home, Self Care Discharge Date/Time: 03/12/22 18:23
[2022-03-12] MEDS: 0.9% Normal Saline 1,000 ML 1000 ML IV (15:14)
[2022-03-12 15:18] VITALS: BP 147/61; PULSE 70; RESP 16; TEMP 36.3; O2SAT 97
[2022-03-12 15:26] LABS: Absolute Lymphocyte Count 1.69 X10^3/uL (0.83-4.51); Absolute Neutrophil Count 2.4 X10^3/uL (2.0-7.7); Basophil# 0.04 X10^3/uL; Basophil% 0.8 % (0-1); Eosinophil# 0.17 X10^3/uL; Eosinophils% 3.5 % (0-5); Hematocrit 38.7 % (37-47); Hemoglobin 12.1 g/dL (12.0-15.0); Lymphocyte # 1.69 X10^3/ul (0.83-4.51); Lymphocyte % 34.8 % (19-41); Mean Corp Hgb Conc 31.3 g/dL (32-36); Mean Corpuscular Hgb 34.1 pg (27.0-32.0); Mean Platelet Vol. 10.4 fl (6.2-12.0); Monocyte# 0.55 X10^3/uL; Monocyte% 11.3 % (0-10); NRBC Flagged by Analyzer 0 % (0-5); Neutrophil # 2.38 X10^3/uL (2.7-7.7); Neutrophil % 49.2 % (47-70); Platelet Count 202 K/mm3 (150-450); RBC Distribution Width CV 14.8 % (11.6-14.6); RBC Distribution Width SD 58.7 fl (35.1-43.9); Red Blood Count 3.55 M/mm3 (4.2-5.4); White Blood Count 4.9 K/mm3 (4.4-11.0)
[2022-03-12 15:38] LABS: Bacteria 0 SEEN /hpf (None Seen); Mucous, Urine 0 SEEN /hpf (<or=2+); White Blood Cells 0 SEEN /hpf (0-5)
[2022-03-12 15:42] LABS: ALB/GLOB Ratio 0.5 RATIO (0.9-2.4); AST(SGOT) 25 U/L (15-37); Alanine Aminotransfer ALT/SGPT 25 U/L (13-56); Alkaline Phosphatase 121 U/L (45-117); Anion Gap 7 (5-15); BUN 32 mg/dL (7-18); BUN/Creat Ratio 4.5 RATIO (10-20); Calcium,Total 7.5 mg/dL (8.5-10.1); Chloride 103 mmol/L (98-107); Creatinine, Serum 7.07 mg/dL (0.55-1.02); EST Glomerular Filtration Rate 6 mL/min (>60); Est Glom Filt Rate - Afr Amer 7 mL/min (>60); Estimated Creatinine Clearance 4.79 ml/min; Globulin 3.9 g/dL (2.2-4.2); Glucose 143 mg/dL (74-106); Protein, Total 5.9 g/dL (6.4-8.2); Sodium Level 139 mmol/L (136-145); Troponin-I HS 25 pg/mL (3.0-54.0)
[2022-03-12] MEDS: 0.9% Normal Saline 1,000 ML 15 ML IV (15:43)
--- NOTE | 2022-03-12 16:00 | RAD_ITS ---
INDICATION: fall EXAMINATION/TECHNIQUE: X-RAY - XR Spine Lumbar 2 or 3 Views COMPARISON: None. FINDINGS: VERTEBRAE: Preserved vertebral body height. There is questionable L1 spinous process avulsion fracture. No spondylolisthesis. Preservation of the normal lumbar lordosis. Severe multilevel facet arthropathy. Mild s-type scoliosis. DISCS: Severe multilevel degenerative disc disease and spondylosis. INCLUDED ABDOMEN: Included bowel gas pattern is non-obstructive. RAD/Lumbar Spine 2 or 3 Views IMPRESSION: Questionable L1 spinous process avulsion fracture. This could be artifactual. Correlate with point tenderness and possible CT L-spine. Severe multilevel degenerative disc disease and spondylosis. N.B. : Alvina Rodriguez MD, confirmed on 03/12/2022 17:48:26 (ET) that the healthcare facility has received the radiology report. Electronically Signed: Wolf Wesley MD at 17:33 EST ,
--- NOTE | 2022-03-12 16:00 | RAD_ITS ---
INDICATION: hypertension EXAMINATION/TECHNIQUE: X-RAY - portable upright AP chest x-ray COMPARISON: 08/16/2021 FINDINGS: LINES/DEVICES: Stable transvenous pacemaker. LUNGS: Patient rotated. No consolidation, vascular congestion or pleural effusion. MEDIASTINUM AND CARDIOVASCULAR STRUCTURES: Cardiac size stable within normal limits. BONES AND SOFT TISSUES: No acute changes. RAD/Chest 1 View (Portable) IMPRESSION: No radiographic evidence of acute cardiopulmonary disease. Electronically Signed: Stephane Carter MD at 16:41 EST ,
[2022-03-12 16:34] LABS: Lactic Acid 0.9 mmol/L (0.4-1.9)
[2022-03-12 16:57] LABS: Color, Urine Yellow (Yellow); Glucose, Dipstick Normal (Normal); Ketone-Dipstick Negative (Negative); Leukocyte Esterase-Dipstick 25 /ul (Negative); Nitrite-Dipstick Negative (Negative); Occult Blood-Urine 25 /ul (Negative); Protein-Dipstick 100 mg/dl (Negative); Specific Gravity, Urine 1.015 (1.002-1.030); Urine Bilirubin Dipstick Negative (Negative); Urine Clarity Clear (Clear); Urine Urobilinogen Normal (Normal)
[2022-03-12 17:29] VITALS: BP 167/78; PULSE 72; RESP 18; TEMP 36.6; O2SAT 98
[2022-03-12 17:31] LABS: Red Blood Cells-Urine 0-5 SEEN /hpf (0-5); Squamous Epithelial Cells - UA 0-5 SEEN /hpf (5-10)
--- NOTE | 2022-03-12 17:44 | NURSING ---
DR SANDRA MATA
[2022-03-12 18:16] VITALS: BP 148/90; PULSE 70; RESP 16; O2SAT 97
== END 2022-03-12 18:23 | disposition home or self-care (01) ==
PROVIDERS: Emergency Provider Emergency Medicine; PCP Family Medicine; Visit Provider Emergency Medicine
DX: R41.82 Altered mental status, unspecified (principal); I13.2 Hypertensive heart and chronic kidney disease with heart failure and with stage 5 chronic kidney disease, or end stage renal disease; Z99.2 Dependence on renal dialysis; I50.32 Chronic diastolic (congestive) heart failure; E11.22 Type 2 diabetes mellitus with diabetic chronic kidney disease; N18.6 End stage renal disease; E78.5 Hyperlipidemia, unspecified; R62.7 Adult failure to thrive; I25.10 Atherosclerotic heart disease of native coronary artery without angina pectoris; R44.1 Visual hallucinations
CPT/HCPCS: 70450; 71045; 72100; 80053; 81001; 83605; 84484; 85025; 87040; 87086; 93005; 96360; 99285; J7030; P9612; A4216

== ENCOUNTER → 2022-05-28 | Outpatient (CLI) | payer MEDICARE, SELFPAY ==
--- NOTE | 2022-05-28 15:00 | RAD_ITS ---
EXAM: XR CHEST, 2 VIEWS CLINICAL INDICATION: Shortness of breath, crackles bilaterally TECHNIQUE: Frontal and lateral views of the chest. This report was created using [employer] report generation technology. COMPARISON: 03/12/2022 FINDINGS: LUNGS AND PLEURAL SPACES: Unremarkable. No consolidation or edema. No pneumothorax. No effusion. HEART: Unremarkable. Cardiac silhouette not enlarged. MEDIASTINUM: Central airways and mediastinal contour are unremarkable. BONES/JOINTS: Unremarkable. SOFT TISSUES: Unremarkable. TUBES, LINES AND DEVICES: Left-sided pacemaker in stable position. RAD/Chest PA and Lateral IMPRESSION: No acute findings in the chest. Electronically Signed: Melvin Damon MD at 17:40 EST ,
[2022-05-28 16:08] LABS: Absolute Lymphocyte Count 1.95 X10^3/uL (0.83-4.51); Absolute Neutrophil Count 6.3 X10^3/uL (2.0-7.7); Basophil# 0.03 X10^3/uL; Basophil% 0.3 % (0-1); Eosinophil# 0.21 X10^3/uL; Eosinophils% 2.2 % (0-5); Hematocrit 28.8 % (37-47); Hemoglobin 9.1 g/dL (12.0-15.0); Lymphocyte # 1.95 X10^3/ul (0.83-4.51); Lymphocyte % 20.9 % (19-41); Mean Corp Hgb Conc 31.6 g/dL (32-36); Mean Corpuscular Hgb 32.5 pg (27.0-32.0); Mean Corpuscular Volume 102.9 fL (81-99); Mean Platelet Vol. 10.5 fl (6.2-12.0); Monocyte% 8.6 % (0-10); NRBC Flagged by Analyzer 0 % (0-5); Neutrophil # 6.33 X10^3/uL (2.7-7.7); Neutrophil % 67.7 % (47-70); Platelet Count 185 K/mm3 (150-450); RBC Distribution Width CV 16.5 % (11.6-14.6); RBC Distribution Width SD 62.4 fl (35.1-43.9); White Blood Count 9.4 K/mm3 (4.4-11.0)
[2022-05-28 16:25] LABS: BNP,B-Type NATRIURETIC PEPTIDE 230.1 pg/mL (0-100)
[2022-05-28 16:35] LABS: Anion Gap 7 (5-15); BUN 43 mg/dL (7-18); BUN/Creat Ratio 6.5 RATIO (10-20); Calcium,Total 8.6 mg/dL (8.5-10.1); Chloride 98 mmol/L (98-107); Creatinine, Serum 6.66 mg/dL (0.55-1.02); EST Glomerular Filtration Rate 6 mL/min (>60); Est Glom Filt Rate - Afr Amer 8 mL/min (>60); Glucose 232 mg/dL (74-106); Potassium 5.1 mmol/L (3.5-5.1); Sodium Level 135 mmol/L (136-145)
== END | disposition home or self-care (01) ==
LOC: LAB 14:51
PROVIDERS: PCP Family Medicine; Visit Provider Nurse Practitioner Gerontology
DX: R06.89 Other abnormalities of breathing (principal); Z99.2 Dependence on renal dialysis; I50.32 Chronic diastolic (congestive) heart failure; N18.6 End stage renal disease; R06.02 Shortness of breath
CPT/HCPCS: 36415; 71046; 80048; 83880; 85025

== ENCOUNTER 2022-06-12 11:18 | Outpatient (RCR) | payer MEDICARE, SELFPAY | END 2022-06-28 21:22 | disposition home or self-care (01) | LOC: LAB 11:18 | PROVIDERS: PCP Family Medicine; Referring Provider Internal Medicine Nephrology; Visit Provider Internal Medicine Nephrology | DX: N18.6 End stage renal disease (principal) | CPT/HCPCS: 36415 ==

== ENCOUNTER 2022-07-03 11:46 | Outpatient (RCR) | payer MEDICARE, SELFPAY | END 2022-07-28 05:19 | disposition home or self-care (01) | LOC: MTLAB 11:46 | PROVIDERS: PCP Family Medicine; Referring Provider Internal Medicine Nephrology; Visit Provider Internal Medicine Nephrology | DX: N18.6 End stage renal disease (principal) | CPT/HCPCS: 36415 ==

== ENCOUNTER 2022-10-11 11:39 | Inpatient (IN) | payer MEDICARE, SELFPAY ==
[2022-10-11] VITALS (43 sets, daily range): BP systolic 42–140; BP diastolic 23–111; PULSE 70–83; RESP 17–93; TEMP 35.7–36.6; O2SAT 20–100; BMI 39.0; BMI 42.8
--- NOTE | 2022-10-11 11:41 | EDS_ITS ---
HPI History of Present Illness Chief Complaint: Syncope [facility] Medical History Acute respiratory failure Albuminuria Asthma Bilateral carotid artery stenosis Chronic anemia Chronic diastolic CHF (congestive heart failure) Chronic kidney disease Esophageal dysphagia ESRD on peritoneal dialysis Essential hypertension GERD (gastroesophageal reflux disease) Glaucoma Hyperlipidemia Hyperparathyroidism, secondary renal Hypothyroidism Leg wound, right Lichenification and lichen simplex chronicus Major depressive disorder Methicillin resistant Staphylococcus epidermidis infection Neurodermatitis Non-proliferative diabetic retinopathy, both eyes Nonobstructive atherosclerosis of coronary artery Normocytic anemia Nummular eczema Obesity Open wound of right forearm 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) Recurrent syncope (03/28/21) Severe protein-calorie malnutrition Skin tear of right forearm without complication Skin tear of right lower leg without complication Stage 3 chronic kidney disease Stenosis of left carotid artery Torsades de pointes (03/28/21) Transient visual loss, right eye (11/2020) Type II diabetes mellitus Ventricular tachycardia Vitamin B 12 deficiency Home Medications atorvastatin 80 mg tablet 80 mg PO QHS CHOLESTEROL 10/12/18 [History Last Taken 10/10/22] omeprazole 40 mg capsule,delayed release 40 mg PO DAILY ACID REFLUX 10/12/18 [History Last Taken 10/10/22] albuterol sulfate 90 mcg/actuation aerosol inhaler 2 puff inhalation Q4H PRN SHORTNESS OF BREATH 10/13/18 [History Last Taken Unknown] montelukast 10 mg tablet 10 mg PO QHS ALLERGIES 10/26/19 [History Last Taken 10/10/22] acetaminophen 325 mg tablet 650 mg PO Q4H PRN pain/fever 05/10/21 [History Last Taken Unknown] ergocalciferol (vitamin D2) 50,000 unit tablet 50,000 unit PO MO SUPPLEMENT 05/10/21 [History Last Taken 10/07/22] ipratropium 0.5 mg-albuterol 3 mg (2.5 mg base)/3 mL nebulization soln 3 ml inhalation Q6H PRN SHORTNESS OF BREATH 05/10/21 [History Last Taken Unknown] fluticasone propionate 110 mcg/actuation HFA aerosol inhaler (Flovent HFA) 1 puff inhalation BID PRN Wheezing 02/08/22 [History Last Taken Unknown] latanoprost 0.005 % eye drops 1 drp ophthalmic (eye) ONCE GLAUCOMA 02/08/22 [History Last Taken Unknown] meclizine 12.5 mg tablet 12.5 mg PO BID VERTIGO 02/08/22 [History Last Taken 10/10/22] tiotropium bromide 2.5 mcg/actuation mist for inhalation (Spiriva Respimat) 2 puff inhalation QAM PRN Wheezing 02/08/22 [History Last Taken Unknown] bupropion HCl 100 mg tablet 100 mg PO BID DEPRESSION 08/16/22 [History Last Taken 10/10/22] insulin glargine 100 unit/mL (3 mL) subcutaneous pen (Lantus Solostar U-100 Insulin) 8 unit subcut DAILY BLOOD SUGARS 08/16/22 [History Last Taken 10/10/22] levothyroxine 137 mcg tablet 137 mcg PO MOTUWETH 08/16/22 [History Last Taken 10/10/22] potassium chloride 20 mEq tablet,extended release 20 meq PO MOFR SUPPLEMENT 08/16/22 [History Last Taken 10/07/22] aspirin 81 mg tablet,delayed release (Adult Aspirin Regimen) 81 mg PO DAILY HEART HEALTH 10/11/22 [History Last Taken 10/10/22] calcitriol 0.25 mcg capsule 0.25 mcg PO WEFR 10/11/22 [History Last Taken 10/09/22] calcium acetate(phosphat bind) 667 mg capsule 667 mg PO TID 10/11/22 [History Last Taken Unknown] carvedilol 12.5 mg tablet 12.5 mg PO DAILY HEART 10/11/22 [History Last Taken 10/10/22] levothyroxine 137 mcg capsule 205.5 mcg PO SUFRSA THYROID 10/11/22 [History Last Taken 10/06/22] magnesium oxide 400 mg PO DAILY SUPPLEMENT 10/11/22 [History Last Taken 10/10/22] mecobalamin (vitamin B12) 500 mcg chewable tablet 500 mcg PO DAILY SUPPLEMENT 10/11/22 [History Last Taken 10/10/22] pioglitazone 30 mg tablet 30 mg PO DAILY DIABETES 10/11/22 [History Last Taken 10/10/22] Allergy/AdvReac Type Severity Reaction Status Date / Time metformin [From Glucophage] Allergy Severe renal Verified 10/11/22 11:40 failure adhesive Allergy Intermediate blisters Verified 10/11/22 11:40 oxycodone Allergy Intermediate hallucinati Verified 10/11/22 11:40 ons tramadol Allergy Intermediate Vomiting Verified 10/11/22 11:40 ERIC Inhibitors AdvReac Intermediate cough Verified 10/11/22 11:40 buspirone [From BuSpar] AdvReac Hallucinati Verified 10/11/22 11:40 ons Family History Father Heart disease Hypertension Suicide Mother Hypertension CVA (cerebral vascular accident) COPD (chronic obstructive pulmonary disease) CAD (coronary artery disease) Surgical History History of bilateral knee replacement (1989) History of breast biopsy History of implantable cardiac defibrillator (ICD) (04/02/21) History of left heart catheterization (03/28/21) History of open reduction and internal fixation (ORIF) procedure History of right cataract extraction (10/03/11) History of temporary cardiac pacemaker treatment (03/28/21) History of tonsillectomy Social History household members: none Smoking Status: Never smoker alcohol intake: never substance use type: does not use caffeine: Yes Type: coffee Number of servings: 2 EXAM Physical Exam Const Vital Signs: 10/11/22 11:41 10/11/22 11:48 10/11/22 11:49 Temperature 96.2 F L Temperature Source Temporal Pulse Rate 83 Respiratory Rate 17 Respiratory Effort Blood Pressure 42/33 L Blood Pressure Mean 36 Pulse Ox 93 95 Oxygen Delivery Method Room Air Room Air 10/11/22 11:49 10/11/22 12:01 10/11/22 12:15 Temperature Temperature Source Pulse Rate 70 Respiratory Rate 19 H Respiratory Effort Normal Non-Labored Blood Pressure 51/24 L 99/85 H Blood Pressure Mean 33 89 Pulse Ox 93 Oxygen Delivery Method Room Air 10/11/22 12:44 10/11/22 12:54 10/11/22 13:15 Temperature Temperature Source Pulse Rate 70 Respiratory Rate 93 H Respiratory Effort Blood Pressure 77/62 L 63/55 L 57/46 L Blood Pressure Mean 67 57 52 Pulse Ox 20 Oxygen Delivery Method Room Air 10/11/22 13:26 10/11/22 13:30 10/11/22 13:50 Temperature Temperature Source Pulse Rate 70 72 70 Respiratory Rate 22 H 22 H 20 H Respiratory Effort Blood Pressure 87/68 L 95/67 86/71 L Blood Pressure Mean 75 78 78 Pulse Ox Oxygen Delivery Method 10/11/22 14:01 10/11/22 14:15 10/11/22 14:30 Temperature Temperature Source Pulse Rate 70 70 70 Respiratory Rate 23 H 24 H 20 H Respiratory Effort Blood Pressure 108/96 H 109/88 H 97/77 Blood Pressure Mean 102 97 85 Pulse Ox 99 99 Oxygen Delivery Method 10/11/22 14:46 10/11/22 15:00 10/11/22 15:15 Temperature Temperature Source Pulse Rate 70 70 70 Respiratory Rate 24 H 22 H 25 H Respiratory Effort Blood Pressure 66/40 L 75/57 L 69/48 L Blood Pressure Mean 48 64 56 Pulse Ox Oxygen Delivery Method 10/11/22 15:20 10/11/22 15:30 10/11/22 15:32 Temperature Temperature Source Pulse Rate 70 70 70 Respiratory Rate 25 H 27 H 27 H Respiratory Effort Blood Pressure 104/31 L 65/23 L 61/36 L Blood Pressure Mean 51 37 42 Pulse Ox Oxygen Delivery Method 10/11/22 15:45 Temperature Temperature Source Pulse Rate 70 Respiratory Rate 27 H Respiratory Effort Blood Pressure 81/70 L Blood Pressure Mean 75 Pulse Ox 98 Oxygen Delivery Method MDM MDM MDM Narrative Medical decision making narrative: HISTORY OF PRESENT ILLNESS: 82-year-old female here with concern for losing consciousness. Per EMS patient receives peritoneal dialysis. Per them patient lost consciousness transiently with full return to baseline. Stated initial blood pressure was 70 systolic. For them her blood pressure returned to normal and her glucose was within normal limits. Denies any focal neurologic deficits. The patient states he just feels like shit states she feels wiped out. It started several days ago when she had mechanical fall from standing. She denies any chest pain or shortness of breath. Denies any focal weakness. Denies any vomiting. Denies any abdominal pain or urinary symptoms. Per the patient's family they have been taking an additional 500 to 600 cc of volume during her peritoneal dialysis sessions. REVIEW OF SYSTEMS: Pertinent positives: Syncope Pertinent negatives: Chest pain, shortness of breath, urinary complaint PHYSICAL EXAM: Nursing triage notes reviewed, Vital signs reviewed Constitutional: please see mdm HENT: MMM Eyes: Pupils equal round and reactive to light, Extraocular muscles intact Neck: No stridor, no JVD, full neck ROM Lungs: Clear to auscultation, No wheezing or rales. No increased work of breathing, no conversational dyspnea, no accessory muscle use, no nasal flaring. No respiratory distress noted Heart: Regular rate and rhythm, No murmurs, No rubs and No gallops, 2+ distal pulses (radial, femoral, posterior tibial) in all extremities Abdomen: Peritoneal dialysis catheter noted, no fluctuance, redness or induration noted soft, there is no tenderness, rigidity, rebound or guarding, no obvious peritoneal signs, no palpable pulsatile abdominal masses, no auscultated abdominal bruit : No CVAT Extremities: No edema Neuro: No focal neurological deficits, cranial nerves II through XII intact, 5/5 strength in all extremities. Intact sensation to light touch in all extremities, 2+ reflexes bilateral patella tendons. Normal gait. No ataxia. Skin: Multiple skin tears on bilateral upper and lower extremities MEDICAL DECISION MAKING: Chief Complaint: Syncope External records reviewed: Echocardiogram from 2021 shows ejection fraction of 65% Factors affecting care: CHF, ESRD on peritoneal dialysis, status post ICD secondary to torsades de point, type 2 diabetes, hyperlipidemia Social determinants of health: Elderly History obtained from others: n patient's daughter and granddaughter Consults: Nephrology, internal medicine ALL IMAGES (IF OBTAINED) HAVE BEEN PERSONALLY REVIEWED AND INTERPRETED BY MYSELF. EKG with atrial paced rhythm, prolonged MN interval, normal axis, no STEMI CBC with leukocytosis suggestive of system inflammation, anemia of chronic disease, no thrombocytopenia BMP with ESRD, hypokalemia consistent with excessive dialysis Lactate elevated consistent with endorgan hypoperfusion TSH elevated consistent with hypothyroidism however T4 is within normal limits Troponin is negative, no evidence of myocardial ischemia MDM Narrative: Patient initially hypotensive otherwise hemodynamically stable and afebrile. No source of infection noted initial exam. No neck stiffness or pain to suggest neurogenic shock. I considered the following differential diagnosis: Neurogenic shock, hypovolemic shock, hemorrhagic shock, obstructive shock, arrhythmia, ACS, dehydration, inappropriate dialysis A broad lab and imaging work-up was obtained to further elucidate the etiology the patient complaints. She resuscitated with Trendelenburg positioning and 1- 1/2 L of IV fluid. CT of the chest abdomen pelvis obtained rule out any obstructive shock such as pericardial effusion, pulmonary embolism. Is also obtained to assess signs of infection that would produce distributive shock such as sepsis. CTA of the chest and pelvis was negative for life-threatening etiologies. There is no evidence of bleeding or hemorrhagic shock. There is no focal neurologic deficits or neck pain to suggest neurogenic shock. There is no arrhythmia on EKG troponin was negative. After discussion with the patient's family came to my attention that the patient had been receiving peritoneal dialysis at approximately twice the volume removed as the patient's baseline. This is likely the cause of her hypotension. Patient's lactate was mildly elevated. She is continued on gentle fluid resuscitation admitted for observati on given hypotension. Discussed with nephrology Dr. Ovalle. He is okay with her to be admitted if the family can provide supplies and perform dialysis. Spoke with Dr. Maria patient daughter agree to admit the patient The patient and/or family, caregivers express understanding. The patient and/or family, caregivers agrees with the plan. Total critical care time today provided was at least 60 minutes. This excludes separately billable procedures. Critical care time (if documented) is secondary to the patient having high probability of clinically significant/life threatening deterioration in the patient's condition which required my urgent intervention. Shared decision making: I will have a discussion with the patient and or visitors regarding risk/benefits of further testing or admission. They will be made aware of of the risk/benefits inherent in this decision they will be given the opportunity to voice understanding. Lab Data Attestation: I reviewed the patient's lab results. Labs: Laboratory Results - last 24 hr 10/11/22 12:45 WBC 13.6 H RBC 2.54 L Hgb 8.3 L Hct 26.7 L MCV 105.1 H MCH 32.7 H MCHC 31.1 L RDW Std Deviation 62.6 H RDW Coeff of Alanna 16.5 H Plt Count 227 MPV 9.9 Immature Gran % (Auto) 1.000 H Neut % (Auto) 87.0 H Lymph % (Auto) 8.5 L [place] % (Auto) 2.8 Eos % (Auto) 0.6 Baso % (Auto) 0.1 Absolute Neuts (auto) 11.8 H Absolute Lymphs (auto) 1.15 Nucleated RBC % 0 Sodium 133 L Potassium 3.0 L Chloride 97 L Carbon Dioxide 27.0 Anion Gap 9 BUN 31 H Creatinine 5.75 H Estim Creat Clear Calc 5.61 Est GFR (MDRD) Af Amer 9 L Est GFR (MDRD) Non-Af 8 L BUN/Creatinine Ratio 5.4 L Glucose 80 Lactic Acid 2.2 H* Calcium 7.7 L Troponin I High Sens 27 TSH 5.16 H Free T4 1.26 ABG Data ABG results: ABG 10/11/22 13:02 Specimen Type ESAU VBG pH 7.34 VBG pO2 45 H VBG HCO3 27 H VBG Total CO2 28 VBG O2 Sat (Calc) 78 H VBG Base Excess 1 POC Mix VBG pCO2 Pt Tmp 48.9 Radiography Diagnostic Testing: Clinical Impression(s) from Imaging Studies Chest X-Ray 10/11/22 12:06 IMPRESSION: Borderline cardiomegaly. Blunting of the left costophrenic angle. Electronically Signed: Anselmo Best MD at 12:40 EDT , Brain CT 10/11/22 12:13 IMPRESSION: Chronic involutional changes of the brain. Sinusitis. 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 Small left renal cysts. A peritoneal dialysis catheter is seen in the right side of the lower pelvis. Subcutaneous edema overlying the inferior left lateral wall and upper pelvis most likely representing possible contusion with the patient''s history of a fall. Electronically Signed: Anselmo Best MD at 12:52 EDT , Knee X-Ray 10/11/22 12:25 IMPRESSION: Status post total knee replacement. No fracture is seen. Electronically Signed: Anselmo Best MD at 12:46 EDT , Discharge Plan Triage Chief Complaint: Syncope ED Provider: Brandon Maldonado Dx/Rx/DC Orders Prescriptions: No Action omeprazole 40 mg capsule,delayed release(DR/EC) 40 mg PO DAILY atorvastatin 80 mg tablet 80 mg PO QHS albuterol sulfate 90 mcg/actuation HFA aerosol inhaler 2 puff INHALATION Q4H PRN (Reason: SHORTNESS OF BREATH ) latanoprost 0.005 % drops 1 drp OPHTHALMIC ONCE levothyroxine 137 mcg tablet 137 mcg PO MOTUWETH Rx Instructions: PT TAKES ONE TABLET (137 MCG) BY MOUTH ONCE DAILY FRIDAY THROUGH FRIDAY AND 1.5 TABLETS (205.5 MCG) FRIDAY THROUGH FRIDAY montelukast 10 mg tablet 10 mg PO QHS Spiriva Respimat 2.5 mcg/actuation mist 2 puff inhalation QAM PRN (Reason: Wheezing) ergocalciferol (vitamin D2) 50,000 unit tablet 50,000 unit PO MO acetaminophen 325 mg tablet 650 mg PO Q4H PRN (Reason: pain/fever) potassium chloride 20 mEq tablet extended release 20 meq PO MOFR meclizine 12.5 mg tablet 12.5 mg PO BID bupropion HCl 100 mg tablet 100 mg PO BID ipratropium-albuterol 0.5 mg-3 mg(2.5 mg base)/3 mL solution for nebulization 3 ml INHALATION Q6H PRN (Reason: SHORTNESS OF BREATH ) fluticasone propionate [Flovent HFA] 110 mcg/actuation HFA aerosol inhaler 1 puff INHALATION BID PRN (Reason: Wheezing) insulin glargine [Lantus Solostar U-100 Insulin] 100 unit/mL (3 mL) insulin pen 8 unit subcut DAILY Rx Instructions: PTS DAUGHTER STATES THAT THE PT SELF ADJUSTS NEEDED pioglitazone 30 mg tablet 30 mg PO DAILY calcium acetate(phosphat bind) 667 mg capsule 667 mg PO TID Patient Comments: PTS DAUGHTTER STATES THAT THEY JUST RECIEVED THIS RX IN THE MAIL AND HAVE YET TO START IT. mecobalamin (vitamin B12) 500 mcg tablet,chewable 500 mcg PO DAILY calcitriol 0.25 mcg capsule 0.25 mcg PO WEFR Patient Comments: PTS DAUGHTER STATES THAT THIS IS USUALLY TAKEN TWICE A WEEEK ON FRIDAY AND FRIDAY aspirin [Adult Aspirin Regimen] 81 mg tablet,delayed release (DR/EC) 81 mg PO DAILY carvedilol 12.5 mg tablet 12.5 mg PO DAILY levothyroxine 137 mcg capsule 205.5 mcg PO SUFRSA Rx Instructions: PT TAKES ONE TABLET (137 MCG) BY MOUTH ONCE DAILY FRIDAY THROUGH FRIDAY AND 1.5 TABLETS (205.5 MCG) FRIDAY THROUGH FRIDAY magnesium oxide 400 mg magnesium tablet 400 mg PO DAILY Primary Care Provider: Satnam Saldana Referrals: Satnam Saldana MD [Primary Care Provider] -
[2022-10-11] MEDS: 0.9% Normal Saline 1,000 ML 999 ML IV ×2 (12:00→22:10)
--- NOTE | 2022-10-11 12:06 | RAD_ITS ---
STUDY: X-RAY CHEST REASON FOR EXAM: Female, 82 years old. Chest pain . Syncopal episode. Hypertension. TECHNIQUE: Single AP portable view of the chest. COMPARISON: Comparison is made with prior study dated May 28, 2022. FINDINGS: EKG electrodes are seen. The lungs are clear and expanded. Lymph node left gastric angle. There is borderline cardiomegaly. A left-sided dual-chamber pacemaker is seen. Normal mediastinum and hortensia. Normal visualized pulmonary arteries. There is atherosclerotic calcification of the aortic arch with tortuosity. There are diffuse degenerative changes of the visualized thoracic spine. There is degenerative osteoarthritis of the bilateral shoulders. There is no demonstrated abnormality of the visualized soft tissue structures of the upper abdomen. RAD/Chest 1 View (Portable) IMPRESSION: Borderline cardiomegaly. Blunting of the left costophrenic angle. Electronically Signed: Anselmo Best MD at 12:40 EDT ,
--- NOTE | 2022-10-11 12:13 | CT_ITS ---
STUDY: CT BRAIN WITHOUT CONTRAST REASON FOR EXAM: Female, 82 years old. Fall, head trauma RADIATION DOSAGE (If Supplied By Facility): CTDIvol = ( 44.99 ) mGy, DLP = ( 829.85 ) mGycm TECHNIQUE: Transaxial CT imaging of the brain was performed without administration of intravenous contrast material. Individualized dose optimization techniques were used for this CT. COMPARISON: Comparison is made with prior examination dated March 12, 2022. FINDINGS: Normal soft tissue structures. There is hyperostosis frontalis internus. There is mild cerebral atrophy with widening of the extra-axial spaces and ventricular dilatation. There are areas of decreased attenuation within the white matter tracts of the supratentorial brain, consistent with microvascular disease changes. Normal basal ganglia and thalami. Normal brainstem. Normal cerebellum. There is no intracranial hemorrhage. There are no findings of an acute ischemic infarction. Atherosclerotic calcification of the cavernous portions of the internal carotid arteries bilaterally. Partial opacification of the maxillary sinuses and the ethmoid sinuses bilaterally. CT/Brain/Head without Contrast IMPRESSION: Chronic involutional changes of the brain. Sinusitis. Electronically Signed: Anselmo Best MD at 12:45 EDT ,
--- NOTE | 2022-10-11 12:14 | CT_ITS ---
STUDY: CT CHEST, ABDOMEN T PELVIS WITH CONTRAST REASON FOR EXAM: Female, 82 years old. Hypotension, recent fall r/o PE, dissection RADIATION DOSAGE (If Supplied By Facility): CTDIvol = ( 22.82 ) mGy, DLP = ( 2089.88 ) mGycm TECHNIQUE: Transaxial imaging was performed following intravenous administration of IV 100mL [id number]-[id number]. Multiplanar coronal and sagittal images were reformatted. Individualized dose optimization techniques were used for this CT. COMPARISON: No relevant priors. FINDINGS: CHEST The lungs are normal. There is no demonstrated pleural abnormality. There are calcifications of the coronary arteries. A left-sided dual-chamber pacemaker is seen. Normal mediastinum. Normal hilar regions. Normal unenhanced pulmonary arteries. There is atherosclerotic calcification of the aortic arch with tortuosity and elongation of the aortic arch and descending thoracic aorta. There are multi-level degenerative changes of the thoracic spine. ABDOMEN Normal liver. Normal gallbladder and extrahepatic biliary system. Normal spleen. Normal pancreas. Normal bilateral adrenal glands. There is a 1 cm angiomyolipoma in the upper midportion of the right kidney as well as a similar-appearing nodule in the inferior pole. 1 cm cyst in the anterior aspect of the left kidney. 2 cm cyst in the inferior pole of the left kidney. There is a small hiatal hernia. Normal small intestine. There are scattered colonic diverticula consistent with diverticulosis. The appendix is visualized and appears normal. There is diffuse atherosclerotic calcification of the abdominal aorta, without a demonstrated aneurysm. Normal inferior vena cava. Normal retroperitoneum. A peritoneal dialysis catheter seen in the right side of the lower pelvis. Evidence of prior ventral hernia repair with mesh. There are diffuse degenerative changes of the visualized lumbar spine. Mild dextroscoliosis. Increased markings are seen in the subcutaneous fat in the left lower abdomen and upper pelvis most likely representing possible contusion with the patient''s history of a fall. PELVIS The urinary bladder is empty at the time of the examination. There is no pelvic fluid. There is no pelvic lymphadenopathy or mass lesion. There is diffuse atherosclerotic calcification of the pelvic arteries. Normal abdominal wall. Normal osseous structures. 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 Small left renal cysts. A peritoneal dialysis catheter is seen in the right side of the lower pelvis. Subcutaneous edema overlying the inferior left lateral wall and upper pelvis most likely representing possible contusion with the patient''s history of a fall. Electronically Signed: Anselmo Best MD at 12:52 EDT ,
--- NOTE | 2022-10-11 12:25 | RAD_ITS ---
STUDY: X-RAY - RIGHT KNEE REASON FOR EXAM: Female, 82 years old. Knee pain TECHNIQUE: 2 view(s) of the knee. COMPARISON: None. FINDINGS: Normal visualized distal femur. Normal visualized proximal tibia and fibula. Normal proximal tibiofibular articulation. The patient is status post total knee replacement. There is good alignment. Soft tissue swelling. Vascular calcification. RAD/Knee 1 or 2 Views IMPRESSION: Status post total knee replacement. No fracture is seen. Electronically Signed: Anselmo Best MD at 12:46 EDT ,
[2022-10-11 13:06] LABS: Blood Gas Specimen Type VEN; VBG BASE EXCESS 1 mmol/L (-1.0-3.5); VBG Bicarbonate 27 mmol/L (22-26); VBG PO2 45 mmHg (25-40); VBG SO2 78 % (50-70); VBG TCO2 28 mmol/L (23-33); VBG pCO2 48.9 mmHg (41-51); VBG pH 7.34 (7.32-7.42)
[2022-10-11 13:13] LABS: Absolute Lymphocyte Count 1.15 X10^3/uL (0.83-4.51); Absolute Neutrophil Count 11.8 X10^3/uL (2.0-7.7); Basophil# 0.01 X10^3/uL; Basophil% 0.1 % (0-1); Eosinophil# 0.08 X10^3/uL; Eosinophils% 0.6 % (0-5); Hematocrit 26.7 % (37-47); Hemoglobin 8.3 g/dL (12.0-15.0); Lymphocyte # 1.15 X10^3/ul (0.83-4.51); Lymphocyte % 8.5 % (19-41); Mean Corp Hgb Conc 31.1 g/dL (32-36); Mean Corpuscular Hgb 32.7 pg (27.0-32.0); Mean Corpuscular Volume 105.1 fL (81-99); Mean Platelet Vol. 9.9 fl (6.2-12.0); Monocyte# 0.38 X10^3/uL; Monocyte% 2.8 % (0-10); NRBC Flagged by Analyzer 0 % (0-5); Neutrophil # 11.82 X10^3/uL (2.7-7.7); Platelet Count 227 K/mm3 (150-450); RBC Distribution Width CV 16.5 % (11.6-14.6); RBC Distribution Width SD 62.6 fl (35.1-43.9); Red Blood Count 2.54 M/mm3 (4.2-5.4); White Blood Count 13.6 K/mm3 (4.4-11.0)
--- NOTE | 2022-10-11 13:35 | NURSING ---
Attempts made to take manual bp measurements on pt's RUE. Not successful. notified. Pt states that it is normal for her to have her bp's tested on her legs rather than arms d/t challenges with obtaining them on her arms. BP then taken on LLE and shows a significant change with maps now reading 75 and 78 respectively. made aware.
[2022-10-11 13:41] LABS: Anion Gap 9 (5-15); BUN 31 mg/dL (7-18); BUN/Creat Ratio 5.4 RATIO (10-20); Calcium,Total 7.7 mg/dL (8.5-10.1); Chloride 97 mmol/L (98-107); Creatinine, Serum 5.75 mg/dL (0.55-1.02); EST Glomerular Filtration Rate 8 mL/min (>60); Est Glom Filt Rate - Afr Amer 9 mL/min (>60); Estimated Creatinine Clearance 5.61 ml/min; Glucose 80 mg/dL (74-106); Sodium Level 133 mmol/L (136-145); T4 Free Direct 1.26 ng/dL (0.76-1.46); Thyroid Stim Hormone (TSH) 5.16 uIU/mL (0.358-3.74); Troponin-I HS 27 pg/mL (3.0-54.0)
[2022-10-11 13:49] LABS: Lactic Acid 2.2 mmol/L (0.4-1.9)
--- NOTE | 2022-10-11 14:23 | NURSING ---
DR BURTON TERRELL
--- NOTE | 2022-10-11 14:31 | NURSING ---
PAGED ESE TEACHER FOR DR PUCKETT
--- NOTE | 2022-10-11 15:23 | NURSING ---
CALLED DR PUCKETT'S OFFICE. TALKED TO YANG. SHE WILL PAGE OUT DR DUFFY
[2022-10-11] MEDS: Acetaminophen 325 MG Tablet 650 MG PO (15:30)
--- NOTE | 2022-10-11 15:32 | ED.RN ---
BP's trending down again, attempted on left arm d/t pt's daughter stating that's usually her good one. No improvement noticed. made aware, more iv fluids ordered and hung.
--- NOTE | 2022-10-11 16:32 | PCM.HP.STD ---
HPI - General General Date of Admission: 10/11/22 Date of Service: 10/11/22 Chief Complaint: Passed out HPI Narrative Chalino WHELAN, is a 82 F who presents after a syncopal episode at home. Patient has significant past medical history including diabetes mellitus type 2, end-stage renal disease on peritoneal dialysis at home. The patient's daughter who provided part of the history he had taken extra fluid off given patient experiencing bilateral lower extremity swelling. She apparently fell and injured her knee 2 days prior to her admission and did experience a syncopal episode on the morning of her admission. On further questioning patient denied any subjective fever but admitted to chills. Denied abdominal pain. Presented to the emergency department was found to be hypotensive with systolic blood pressure in the 60s. Patient was also found to have elevated lactic acid level as well as leukocytosis. Was resuscitated with IV fluid without much improvement decision was made in the emergency department to start patient on broad-spectrum antibiotic therapy for suspected septic shock secondary to suspected SBP. Subsequently admitted to the intensive care unit for further management [facility] Medical History Acute respiratory failure Albuminuria Asthma Bilateral carotid artery stenosis Chronic anemia Chronic diastolic CHF (congestive heart failure) Chronic kidney disease Esophageal dysphagia ESRD on peritoneal dialysis Essential hypertension GERD (gastroesophageal reflux disease) Glaucoma Hyperlipidemia Hyperparathyroidism, secondary renal Hypothyroidism Leg wound, right Lichenification and lichen simplex chronicus Major depressive disorder Methicillin resistant Staphylococcus epidermidis infection Neurodermatitis Non-proliferative diabetic retinopathy, both eyes Nonobstructive atherosclerosis of coronary artery Normocytic anemia Nummular eczema Obesity Open wound of right forearm 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) Recurrent syncope (03/28/21) Severe protein-calorie malnutrition Skin tear of right forearm without complication Skin tear of right lower leg without complication Stage 3 chronic kidney disease Stenosis of left carotid artery Torsades de pointes (03/28/21) Transient visual loss, right eye (11/2020) Type II diabetes mellitus Ventricular tachycardia Vitamin B 12 deficiency Home Medications atorvastatin 80 mg tablet 80 mg PO QHS CHOLESTEROL 10/12/18 [History Last Taken 10/10/22] omeprazole 40 mg capsule,delayed release 40 mg PO DAILY ACID REFLUX 10/12/18 [History Last Taken 10/10/22] albuterol sulfate 90 mcg/actuation aerosol inhaler 2 puff inhalation Q4H PRN SHORTNESS OF BREATH 10/13/18 [History Last Taken Unknown] montelukast 10 mg tablet 10 mg PO QHS ALLERGIES 10/26/19 [History Last Taken 10/10/22] acetaminophen 325 mg tablet 650 mg PO Q4H PRN pain/fever 05/10/21 [History Last Taken Unknown] ergocalciferol (vitamin D2) 50,000 unit tablet 50,000 unit PO MO SUPPLEMENT 05/10/21 [History Last Taken 10/07/22] ipratropium 0.5 mg-albuterol 3 mg (2.5 mg base)/3 mL nebulization soln 3 ml inhalation Q6H PRN SHORTNESS OF BREATH 05/10/21 [History Last Taken Unknown] fluticasone propionate 110 mcg/actuation HFA aerosol inhaler (Flovent HFA) 1 puff inhalation BID PRN Wheezing 02/08/22 [History Last Taken Unknown] latanoprost 0.005 % eye drops 1 drp ophthalmic (eye) ONCE GLAUCOMA 02/08/22 [History Last Taken Unknown] meclizine 12.5 mg tablet 12.5 mg PO BID VERTIGO 02/08/22 [History Last Taken 10/10/22] tiotropium bromide 2.5 mcg/actuation mist for inhalation (Spiriva Respimat) 2 puff inhalation QAM PRN Wheezing 02/08/22 [History Last Taken Unknown] bupropion HCl 100 mg tablet 100 mg PO BID DEPRESSION 08/16/22 [History Last Taken 10/10/22] insulin glargine 100 unit/mL (3 mL) subcutaneous pen (Lantus Solostar U-100 Insulin) 8 unit subcut DAILY BLOOD SUGARS 08/16/22 [History Last Taken 10/10/22] levothyroxine 137 mcg tablet 137 mcg PO MOTUWETH 08/16/22 [History Last Taken 10/10/22] potassium chloride 20 mEq tablet,extended release 20 meq PO MOFR SUPPLEMENT 08/16/22 [History Last Taken 10/07/22] aspirin 81 mg tablet,delayed release (Adult Aspirin Regimen) 81 mg PO DAILY HEART HEALTH 10/11/22 [History Last Taken 10/10/22] calcitriol 0.25 mcg capsule 0.25 mcg PO WEFR 10/11/22 [History Last Taken 10/09/22] calcium acetate(phosphat bind) 667 mg capsule 667 mg PO TID 10/11/22 [History Last Taken Unknown] carvedilol 12.5 mg tablet 12.5 mg PO DAILY HEART 10/11/22 [History Last Taken 10/10/22] levothyroxine 137 mcg capsule 205.5 mcg PO SUFRSA THYROID 10/11/22 [History Last Taken 10/06/22] magnesium oxide 400 mg PO DAILY SUPPLEMENT 10/11/22 [History Last Taken 10/10/22] mecobalamin (vitamin B12) 500 mcg chewable tablet 500 mcg PO DAILY SUPPLEMENT 10/11/22 [History Last Taken 10/10/22] pioglitazone 30 mg tablet 30 mg PO DAILY DIABETES 10/11/22 [History Last Taken 10/10/22] Allergy/AdvReac Type Severity Reaction Status Date / Time metformin [From Glucophage] Allergy Severe renal Verified 10/11/22 11:40 failure adhesive Allergy Intermediate blisters Verified 10/11/22 11:40 oxycodone Allergy Intermediate hallucinati Verified 10/11/22 11:40 ons tramadol Allergy Intermediate Vomiting Verified 10/11/22 11:40 ERIC Inhibitors AdvReac Intermediate cough Verified 10/11/22 11:40 buspirone [From BuSpar] AdvReac Hallucinati Verified 10/11/22 11:40 ons Family History Father Heart disease Hypertension Suicide Mother Hypertension CVA (cerebral vascular accident) COPD (chronic obstructive pulmonary disease) CAD (coronary artery disease) Surgical History History of bilateral knee replacement (1989) History of breast biopsy History of implantable cardiac defibrillator (ICD) (04/02/21) History of left heart catheterization (03/28/21) History of open reduction and internal fixation (ORIF) procedure History of right cataract extraction (10/03/11) History of temporary cardiac pacemaker treatment (03/28/21) History of tonsillectomy Social History household members: none Smoking Status: Never smoker alcohol intake: never substance use type: does not use caffeine: Yes Type: coffee Number of servings: 2 ROS ROS Narrative GENERAL: chills, HEENT: denies headache, sinus congestion, RESPIRATORY: denies cough, sputum production, CARDIAC: denies chest pain, palpitations, GASTROINTESTINAL: denies abdominal pain, nausea, GENITOURINARY: denies dysuria, urgency, frequency, EXTREMITY: denies swelling MUSCULOSKELETAL: Right knee pain NEUROLOGIC: denies focal numbness, weakness, tingling HEMATOLOGIC: denies easy bruising and/or hemorrhage INTEGUMENT: denies rashes PSYCHIATRIC: denies suicidal or homicidal ideation Vital Signs Vital Signs Vital Signs: 10/11/22 11:41 10/11/22 11:48 10/11/22 11:49 Temperature 96.2 F L Temperature Source Temporal Pulse Rate 83 Respiratory Rate 17 Respiratory Effort Blood Pressure 42/33 L Blood Pressure Mean 36 Pulse Ox 93 95 Oxygen Delivery Method Room Air Room Air 10/11/22 11:49 10/11/22 12:01 10/11/22 12:15 Temperature Temperature Source Pulse Rate 70 Respiratory Rate 19 H Respiratory Effort Normal Non-Labored Blood Pressure 51/24 L 99/85 H Blood Pressure Mean 33 89 Pulse Ox 93 Oxygen Delivery Method Room Air 10/11/22 12:44 10/11/22 12:54 10/11/22 13:15 Temperature Temperature Source Pulse Rate 70 Respiratory Rate 93 H Respiratory Effort Blood Pressure 77/62 L 63/55 L 57/46 L Blood Pressure Mean 67 57 52 Pulse Ox 20 Oxygen Delivery Method Room Air 10/11/22 13:26 10/11/22 13:30 10/11/22 13:50 Temperature Temperature Source Pulse Rate 70 72 70 Respiratory Rate 22 H 22 H 20 H Respiratory Effort Blood Pressure 87/68 L 95/67 86/71 L Blood Pressure Mean 75 78 78 Pulse Ox Oxygen Delivery Method 10/11/22 14:01 10/11/22 14:15 10/11/22 14:30 Temperature Temperature Source Pulse Rate 70 70 70 Respiratory Rate 23 H 24 H 20 H Respiratory Effort Blood Pressure 108/96 H 109/88 H 97/77 Blood Pressure Mean 102 97 85 Pulse Ox 99 99 Oxygen Delivery Method 10/11/22 14:46 10/11/22 15:00 10/11/22 15:15 Temperature Temperature Source Pulse Rate 70 70 70 Respiratory Rate 24 H 22 H 25 H Respiratory Effort Blood Pressure 66/40 L 75/57 L 69/48 L Blood Pressure Mean 48 64 56 Pulse Ox Oxygen Delivery Method 10/11/22 15:20 10/11/22 15:30 10/11/22 15:32 Temperature Temperature Source Pulse Rate 70 70 70 Respiratory Rate 25 H 27 H 27 H Respiratory Effort Blood Pressure 104/31 L 65/23 L 61/36 L Blood Pressure Mean 51 37 42 Pulse Ox Oxygen Delivery Method 10/11/22 15:45 Temperature Temperature Source Pulse Rate 70 Respiratory Rate 27 H Respiratory Effort Blood Pressure 81/70 L Blood Pressure Mean 75 Pulse Ox 98 Oxygen Delivery Method Weight Weight: 90.718 kg Body Mass Index (BMI) 39.0 Physical Exam Narrative GENERAL: Somewhat lethargic HEENT: Atraumatic; normocephalic EYES; Anicteric, Normal Conjunctiva NECK; supple, normal thyroid, RESPIRATORY: Diminished to auscultation CARDIOVASCULAR: Regular S1 S2, GI: soft, normoactive bowel sounds, : No Renal angle tenderness; EXTREMITIES: 1+ bipedal edema MUSCULOSKELETAL: no muscle wasting NEURO: Awake; no lateralizing signs. SKIN: No Rash PSYCH; Flat affect Results Lab / Micro Data 10/12/22 03:03 10/12/22 03:03 Labs: Laboratory Results - last 24 hr 10/11/22 12:45: WBC 13.6 H, RBC 2.54 L, Hgb 8.3 L, Hct 26.7 L, MCV 105.1 H, MCH 32.7 H, MCHC 31.1 L, RDW Std Deviation 62.6 H, RDW Coeff of Alanna 16.5 H, Plt Count 227, MPV 9.9, Immature Gran % (Auto) 1.000 H, Neut % (Auto) 87.0 H, Lymph % (Auto) 8.5 L, O'Brien % (Auto) 2.8, Eos % (Auto) 0.6, Baso % (Auto) 0.1, Absolute Neuts (auto) 11.8 H, Absolute Lymphs (auto) 1.15, Nucleated RBC % 0, Sodium 133 L, Potassium 3.0 L, Chloride 97 L, Carbon Dioxide 27.0, Anion Gap 9, BUN 31 H, Creatinine 5.75 H, Estim Creat Clear Calc 5.61, Est GFR (MDRD) Af Amer 9 L, Est GFR (MDRD) Non-Af 8 L, BUN/Creatinine Ratio 5.4 L, Glucose 80, Lactic Acid 2.2 H*, Calcium 7.7 L, Troponin I High Sens 27, TSH 5.16 H, Free T4 1.26 ABG Data ABG results: ABG 10/11/22 13:02 Specimen Type ESAU VBG pH 7.34 VBG pO2 45 H VBG HCO3 27 H VBG Total CO2 28 VBG O2 Sat (Calc) 78 H VBG Base Excess 1 POC Mix VBG pCO2 Pt Tmp 48.9 Radiology Impression Chest X-Ray 10/11/22 12:06 IMPRESSION: Borderline cardiomegaly. Blunting of the left costophrenic angle. Electronically Signed: Anselmo Best MD at 12:40 EDT , Brain CT 10/11/22 12:13 IMPRESSION: Chronic involutional changes of the brain. Sinusitis. 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 Small left renal cysts. A peritoneal dialysis catheter is seen in the right side of the lower pelvis. Subcutaneous edema overlying the inferior left lateral wall and upper pelvis most likely representing possible contusion with the patient''s history of a fall. Electronically Signed: Anselmo Best MD at 12:52 EDT , Knee X-Ray 10/11/22 12:25 IMPRESSION: Status post total knee replacement. No fracture is seen. Electronically Signed: Anselmo Best MD at 12:46 EDT , Assessment & Plan Assessment/Plan (1) Septic shock: PLAN: Plan Patient is an 82-year-old lady with history of end-stage renal disease on peritoneal dialysis presented with syncopal episode found to be hypotensive with elevated lactic acid and leukocytosis 1. Septic shock ? Patient met criteria for septic shock with presence of a suspected infection with SIRS criteria?S as well as evidence of endorgan dysfunction with lactic acid level greater than 2. Patient did receive IV fluid in the emergency department without much response decision was subsequently made to start patient on Levophed after central line had been placed with plan for patient to be admitted to the intensive care unit. As part of her management did obtain blood as well as cultures from her peritoneal fluid. Started on broad-spectrum antibiotic therapy with Zosyn and vancomycin 2. Syncopal episode ? From hypotension from her suspected septic shock as well as possible hypovolemia from her peritoneal dialysis being resuscitated with IV fluid as discussed above 3. End-stage renal disease ? Patient is on peritoneal dialysis consult placed to Dr. Ovalle for dialysis orders 4. Diabetes mellitus type II -patient's oral hypoglycemics held. Placed on long acting insulin, Accu-Cheks a.c. and at bedtime and covered with sliding scale insulin 5. Anemia - Secondary to chronic disorder monitoring H&H and transfuse if patient becomes symptomatic or hemoglobin falls below 7 6. Dyslipidemia -Patient is on statin therapy, continued at home dose 7. Essential hypertension ? Patient antihypertensives held given her presentation low blood pressure 8. Hypothyroidism - Patient is on levothyroxine home dose continued 9. GERD ? On PPI 10. Hypokalemia ? Corrected per protocol repeat labs ordered in a.m. for monitoring 11. 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 Nonobstructive coronary artery disease ? Currently stable on recommended medications 13. Depression with anxiety ? Patient is on bupropion 14. Class II obesity with BMI of 39.1 - complicating care, Weight loss advised 15. DVT prophylaxis ? SC heparin Time critical care spent in the patient's overall evaluation,decision-making process, review of diagnostic data, adjustment of management, discussion with other providers, nursing nursing and ancillary staff involved in patient's care documentation 80 minutes Advance planning; did discuss with the patient and family regarding advanced directives as well as CODE STATUS. Did explain the various scenarios involved ( FULL CODE, DNR CCA, DNR CCA with no intubation, and DNR CC and what each meant) patient elected to be DNR CCA no intubation. Order was placed. Time spent on discussion 18 minutes. Sepsis Attestation Sepsis Alert: Yes Sepsis Attestation: Agree w/Sepsis Date exam was performed: 10/11/22 Time exam was performed: 16:34 Possible Source of Sepsis: GI tract/intra-abdominal Sepsis Organ Dysfunction Criteria Present: SBP < 90 mmHg or MAP < 65 mmHg, Creatinine > 2.0 mg/dL and Lactic Acid > 2 mmol/L Fluid Resuscitation Fluid Resuscitation ordered: 30 ml/kg fluid bolus ordered Sepsis Note Date exam was performed: 10/11/22 Time exam was performed: 18:30 Sepsis Attestation: Sepsis re-evaluation was performed Response to fluids: Vasopressors started Charges/Coding Multi Select Codes Hospitalists' Procedures Procedures: 93605 Critial Care 1st Hr, 17854 Critial Care Addl 30 Min and 11961 Advncd Care Plan 30 Min
--- NOTE | 2022-10-11 16:39 | NURSING ---
PCU KITTOE HYPOTENSION
[2022-10-11 17:04] LABS: Reflex Lactate? Y
--- NOTE | 2022-10-11 17:10 | RAD_ITS ---
INDICATION: line placement EXAMINATION/TECHNIQUE: X-RAY - XR Chest 1 View COMPARISON: 12:00 PM. FINDINGS: LINES/DEVICES: Right IJ line terminates in the SVC. Dual lead cardiac pacemaker, wires intact. LUNGS: No consolidation, edema or effusion. No pneumothorax. MEDIASTINUM AND CARDIOVASCULAR STRUCTURES: Cardiac silhouette borderline in size. Central airways and mediastinal contour are unremarkable. BONES AND SOFT TISSUES: Osteoarthrosis of the shoulders. RAD/CXR for Line Placement IMPRESSION: Right IJ line terminates in the SVC. No pneumothorax. Electronically Signed: Joann Martinez MD at 17:42 EDT Reading Location ID and State: [id number] / Tel , Service support ,
[2022-10-11 19:36] LABS: Lactic Acid 1.8 mmol/L (0.4-1.9)
[2022-10-11] MEDS: Calcitriol 0.25 MCG Capsule PO (19:56)
[2022-10-11] MEDS: Potassium Chloride Oral Tablet 20 MEQ 40 MEQ PO (20:01)
--- NOTE | 2022-10-11 20:22 | PCM.RX.CS ---
Consult Antibiotic Management Pharmacy has been consulted to manage selected antiobiotic: Vancomycin Type of Intervention Type of Consult: New start Suspected Infection Suspected Infection: Sepsis Labs Labs: Sodium 133 mmol/L (136-145) L 10/11/22 12:45 Potassium 3.0 mmol/L (3.5-5.1) L 10/11/22 12:45 Chloride 97 mmol/L (98-107) L 10/11/22 12:45 Carbon Dioxide 27.0 mmol/L (21.0-32.0) 10/11/22 12:45 Anion Gap 9 (5-15) 10/11/22 12:45 BUN 31 mg/dL (7-18) H 10/11/22 12:45 Creatinine 5.75 mg/dL (0.55-1.02) H 10/11/22 12:45 Est GFR (MDRD) Af Amer 9 mL/min (>60) L 10/11/22 12:45 Est GFR (MDRD) Non-Af 8 mL/min (>60) L 10/11/22 12:45 BUN/Creatinine Ratio 5.4 RATIO (10-20) L 10/11/22 12:45 Glucose 80 mg/dL (74-106) 10/11/22 12:45 Pharmacy Plan for Drug Dosing Pharmacy Plan for Drug Dosing: NEW START IV VANCOMYCIN Consulting Physician: BURTON Indication: SEPTIC SHOCK Goal Trough: 15-20 MG/DL SrCr: 5.61 MG/DL (PERITONEAL DIALYSIS) CrCl: 8.5 ML/MIN (USING ADJ BW) Comments: LOADING DOSE OF 2000MG GIVEN 10/11 @ 1955 Vancomycin Dose: PT IS ON PERITONEAL DIALYSIS. WILL DOSE SOMEONE WITH POOR RENAL FUNCTION, CRCL <20ML/MIN, SINCE SHE IS NOT HEMODIALYSIS. GIVEN X1 DOSE TODAY, WILL NOT GIVE FURTHER DOSES AT THIS TIME. RANDOM LEVEL ENTERED FOR FRIDAY WITH AM LABS. Pending Level: 10/13/22 @ 0600 - RANDOM Pharmacy Service will continue to monitor and adjust dosing as required.
[2022-10-11] MEDS: Atorvastatin Calcium 80 MG Tablet PO (21:52)
[2022-10-11] MEDS: buPROPion 100 MG Tablet PO (21:52)
[2022-10-11] MEDS: Montelukast 10 MG Tablet PO (21:52)
[2022-10-11] MEDS: Heparin Injection (Vial) 5,000 UNIT/ML VIAL 5000 UNIT SC (21:54)
[2022-10-11 22:05] LABS: Bedside Glucose 58 mg/dL (74-106)
[2022-10-11] MEDS: 0.9% Normal Saline 1,000 ML 100 ML IV (22:45)
[2022-10-11] MEDS: Albuterol 2.5 MG/3 ML VIAL.NEB. INHALATION (23:04)
[2022-10-12] VITALS (61 sets, daily range): BP systolic 70–142; BP diastolic 36–111; PULSE 70–93; RESP 12–28; TEMP 36.4–37.2; O2SAT 90–100; BMI 43.8
--- NOTE | 2022-10-12 00:39 | PCM.HOSP.N ---
Hospitalist Note Max setting on NEP, will add vasopressin.
[2022-10-12] MEDS: CLARIFY ORDER NOTE (01:02)
[2022-10-12 03:17] LABS: Absolute Lymphocyte Count 1.67 X10^3/uL (0.83-4.51); Absolute Neutrophil Count 17.7 X10^3/uL (2.0-7.7); Basophil# 0.03 X10^3/uL; Basophil% 0.1 % (0-1); Eosinophil# 0.06 X10^3/uL; Eosinophils% 0.3 % (0-5); Hematocrit 27.6 % (37-47); Hemoglobin 8.9 g/dL (12.0-15.0); Lymphocyte # 1.67 X10^3/ul (0.83-4.51); Lymphocyte % 8.1 % (19-41); Mean Corp Hgb Conc 32.2 g/dL (32-36); Mean Corpuscular Volume 102.2 fL (81-99); Mean Platelet Vol. 9.9 fl (6.2-12.0); Monocyte% 3.4 % (0-10); NRBC Flagged by Analyzer 0 % (0-5); Neutrophil # 17.65 X10^3/uL (2.7-7.7); Neutrophil % 86.2 % (47-70); Platelet Count 269 K/mm3 (150-450); RBC Distribution Width CV 16.5 % (11.6-14.6); RBC Distribution Width SD 61.2 fl (35.1-43.9); White Blood Count 20.5 K/mm3 (4.4-11.0)
[2022-10-12 03:42] LABS: Anion Gap 8 (5-15); BUN 37 mg/dL (7-18); BUN/Creat Ratio 6.3 RATIO (10-20); Calcium,Total 7.5 mg/dL (8.5-10.1); Chloride 103 mmol/L (98-107); Creatinine, Serum 5.88 mg/dL (0.55-1.02); EST Glomerular Filtration Rate 7 mL/min (>60); Est Glom Filt Rate - Afr Amer 9 mL/min (>60); Estimated Creatinine Clearance 5.48 ml/min; Glucose 84 mg/dL (74-106); Magnesium 1.7 mg/dL (1.6-2.6); Phosphorus 5.2 mg/dL (2.5-4.9); Potassium 4.1 mmol/L (3.5-5.1); Sodium Level 137 mmol/L (136-145)
[2022-10-12] MEDS: 0.9% Normal Saline 1,000 ML 100 ML IV ×2 (03:54→12:32)
[2022-10-12] MEDS: Levothyroxine 137 MCG Tablet 205.5 MCG PO (05:45)
[2022-10-12] MEDS: Acetaminophen 325 MG Tablet 650 MG PO ×2 (05:49→15:35)
[2022-10-12] MEDS: 0.9% Saline Lock 10 ML Syringe IV ×2 (05:50→16:04)
--- NOTE | 2022-10-12 06:15 | EX.PCM.CONCC ---
Assessment & Plan Assessment/Plan (1) Septic shock: PLAN: Plan RECOMMENDATIONS: 1. Continue empiric broad-spectrum antimicrobials. 2. Continue vasopressor support to maintain mean arterial pressure at or above 65 mmHg. 3. Dialysis support per nephrology recommendations. 4. Continue appropriate DVT prophylaxis. 5. Continue Accu-Cheks and sliding scale insulin. IMPRESSIONS: 1. Undifferentiated shock Potential considerations include septic versus hypovolemic shock. Apparently, the patient's peritoneal dialysis sessions was being augmented to facilitate additional fluid removal recently. Therefore, intravascular volume depletion is certainly a possibility. While sepsis is a possibility, no definitive source of infection has yet to be identified. The patient reported that she does not make urine at her baseline. Blood cultures have already been obtained. There was no focal finding noted on chest imaging. Given that the patient does have a peritoneal catheter, SBP would be a possibility. Nevertheless, the patient has been initiated on empiric broad-spectrum antimicrobials, pending finalized culture results. Plan to continue vasopressor support to maintain mean arterial pressure at or above 65 mmHg. The patient is unlikely to tolerate peritoneal dialysis. However, I will defer this decision to nephrology, who has been consulted to evaluate the patient. 2. Syncope Most likely related to presenting hypotension, which may have been related to intravascular volume depletion versus sepsis. Plan to continue supportive measures as noted above. The patient is alert and appropriately interactive. 3. History of chronic kidney disease on peritoneal dialysis Nephrology consultation has been placed to assist with medical management. 4. Morbid obesity/hyperlipidemia/hypertension/hypothyroidism/diabetes mellitus Complicates care, management, recovery and prognosis. Continue supportive measures as noted above. Continue Accu-Cheks and sliding scale insulin coverage. TIME: 33 minutes of critical care time, independent of procedures, was spent addressing the patient's undifferentiated shock, syncope, review of all data and collaboration with the care team. HPI Consult Data Date of Consult: 10/13/22 HPI Narrative Reason for Consultation: Sepsis HPI Narrative: The patient is an 82-year-old female, with a history as outlined below, who presented to the emergency department via EMS on October 11 after experiencing a syncopal event at home. The patient has a history of chronic kidney disease on peritoneal dialysis along with heart failure with preserved ejection fraction, hypertension and carotid stenosis. The patient reported that she was receiving her routine peritoneal dialysis last evening and upon completion, she experienced a syncopal event upon standing. The patient denied that this has ever happened before. There is some concern that the patient was having additional fluid removed during her peritoneal dialysis sessions. On presentation to the emergency department, the patient was documented to have a temperature of 96.2 ?F. She was notably hypotensive. Initial laboratory evaluation revealed a white blood cell count of 14,000. Chemistry profile was notable for a sodium of 133, potassium of 3.0 and creatinine of 5.75. Lactate was elevated at 2.2. Troponin was unremarkable. Chest x-ray demonstrated mild cardiomegaly and blunting of left costophrenic angle. CT head revealed chronic involutional changes of the brain. The patient did receive supplemental IV fluid hydration and was started on empiric broad-spectrum antimicrobials. Ultimately, the patient had to be initiated on vasopressor support due to fluid refractory hypotension. She was admitted to the medical intensive care unit for further management. No overnight issues were identified by the nursing staff. The patient has no specific complaints this morning. However, in addition to Levophed, the patient had to be started on vasopressin overnight. [facility] Medical History Acute respiratory failure Albuminuria Asthma Bilateral carotid artery stenosis Chronic anemia Chronic diastolic CHF (congestive heart failure) Chronic kidney disease Esophageal dysphagia ESRD on peritoneal dialysis Essential hypertension GERD (gastroesophageal reflux disease) Glaucoma Hyperlipidemia Hyperparathyroidism, secondary renal Hypothyroidism Leg wound, right Lichenification and lichen simplex chronicus Major depressive disorder Methicillin resistant Staphylococcus epidermidis infection Neurodermatitis Non-proliferative diabetic retinopathy, both eyes Nonobstructive atherosclerosis of coronary artery Normocytic anemia Nummular eczema Obesity Open wound of right forearm 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) Recurrent syncope (03/28/21) Severe protein-calorie malnutrition Skin tear of right forearm without complication Skin tear of right lower leg without complication Stage 3 chronic kidney disease Stenosis of left carotid artery Torsades de pointes (03/28/21) Transient visual loss, right eye (11/2020) Type II diabetes mellitus Ventricular tachycardia Vitamin B 12 deficiency Home Medications atorvastatin 80 mg tablet 80 mg PO QHS CHOLESTEROL 10/12/18 [History Last Taken 10/10/22] omeprazole 40 mg capsule,delayed release 40 mg PO DAILY ACID REFLUX 10/12/18 [History Last Taken 10/10/22] albuterol sulfate 90 mcg/actuation aerosol inhaler 2 puff inhalation Q4H PRN SHORTNESS OF BREATH 10/13/18 [History Last Taken Unknown] montelukast 10 mg tablet 10 mg PO QHS ALLERGIES 10/26/19 [History Last Taken 10/10/22] acetaminophen 325 mg tablet 650 mg PO Q4H PRN pain/fever 05/10/21 [History Last Taken Unknown] ergocalciferol (vitamin D2) 50,000 unit tablet 50,000 unit PO MO SUPPLEMENT 05/10/21 [History Last Taken 10/07/22] ipratropium 0.5 mg-albuterol 3 mg (2.5 mg base)/3 mL nebulization soln 3 ml inhalation Q6H PRN SHORTNESS OF BREATH 05/10/21 [History Last Taken Unknown] fluticasone propionate 110 mcg/actuation HFA aerosol inhaler (Flovent HFA) 1 puff inhalation BID PRN Wheezing 02/08/22 [History Last Taken Unknown] latanoprost 0.005 % eye drops 1 drp ophthalmic (eye) ONCE GLAUCOMA 02/08/22 [History Last Taken Unknown] meclizine 12.5 mg tablet 12.5 mg PO BID VERTIGO 02/08/22 [History Last Taken 10/10/22] tiotropium bromide 2.5 mcg/actuation mist for inhalation (Spiriva Respimat) 2 puff inhalation QAM PRN Wheezing 02/08/22 [History Last Taken Unknown] bupropion HCl 100 mg tablet 100 mg PO BID DEPRESSION 08/16/22 [History Last Taken 10/10/22] insulin glargine 100 unit/mL (3 mL) subcutaneous pen (Lantus Solostar U-100 Insulin) 8 unit subcut DAILY BLOOD SUGARS 08/16/22 [History Last Taken 10/10/22] levothyroxine 137 mcg tablet 137 mcg PO MOTUWETH 08/16/22 [History Last Taken 10/10/22] potassium chloride 20 mEq tablet,extended release 20 meq PO MOFR SUPPLEMENT 08/16/22 [History Last Taken 10/07/22] aspirin 81 mg tablet,delayed release (Adult Aspirin Regimen) 81 mg PO DAILY HEART HEALTH 10/11/22 [History Last Taken 10/10/22] calcitriol 0.25 mcg capsule 0.25 mcg PO WEFR 10/11/22 [History Last Taken 10/09/22] calcium acetate(phosphat bind) 667 mg capsule 667 mg PO TID 10/11/22 [History Last Taken Unknown] carvedilol 12.5 mg tablet 12.5 mg PO DAILY HEART 10/11/22 [History Last Taken 10/10/22] levothyroxine 137 mcg capsule 205.5 mcg PO SUFRSA THYROID 10/11/22 [History Last Taken 10/06/22] magnesium oxide 400 mg PO DAILY SUPPLEMENT 10/11/22 [History Last Taken 10/10/22] mecobalamin (vitamin B12) 500 mcg chewable tablet 500 mcg PO DAILY SUPPLEMENT 10/11/22 [History Last Taken 10/10/22] pioglitazone 30 mg tablet 30 mg PO DAILY DIABETES 10/11/22 [History Last Taken 10/10/22] Allergy/AdvReac Type Severity Reaction Status Date / Time metformin [From Glucophage] Allergy Severe renal Verified 10/11/22 11:40 failure adhesive Allergy Intermediate blisters Verified 10/11/22 11:40 oxycodone Allergy Intermediate hallucinati Verified 10/11/22 11:40 ons tramadol Allergy Intermediate Vomiting Verified 10/11/22 11:40 ERIC Inhibitors AdvReac Intermediate cough Verified 10/11/22 11:40 buspirone [From BuSpar] AdvReac Hallucinati Verified 10/11/22 11:40 ons Family History Father Heart disease Hypertension Suicide Mother Hypertension CVA (cerebral vascular accident) COPD (chronic obstructive pulmonary disease) CAD (coronary artery disease) Surgical History History of bilateral knee replacement (1989) History of breast biopsy History of implantable cardiac defibrillator (ICD) (04/02/21) History of left heart catheterization (03/28/21) History of open reduction and internal fixation (ORIF) procedure History of right cataract extraction (10/03/11) History of temporary cardiac pacemaker treatment (03/28/21) History of tonsillectomy Social History household members: none Smoking Status: Never smoker alcohol intake: never substance use type: does not use caffeine: Yes Type: coffee Number of servings: 2 ROS ROS Narrative 10 systems were reviewed with pertinent positives as noted in the HPI above. Physical Exam Const alert and no apparent distress General Appearance: cooperative HEENT normocephalic and head/scalp atraumatic Eyes PERRL, EOMs intact bilaterally and conjunctivae normal Neck supple General: trachea midline and CVC in place Chest inspection of chest normal Resp normal respiratory effort Auscultation: Negative for rales, rhonchi or wheezes Cardio regular rate and regular rhythm GI normal to inspection, nondistended, normoactive bowel sounds Extremity Extremity Narrative: Trace lower extremity edema Skin no rashes or lesions noted Neuro CN's II-XII intact bilaterally, moves all extremities and no focal motor deficits Psych cooperative and affect normal Lab / Micro Data 10/13/22 05:15 10/13/22 05:15 Labs: Laboratory Results - last 24 hr 10/11/22 12:45: WBC 13.6 H, RBC 2.54 L, Hgb 8.3 L, Hct 26.7 L, MCV 105.1 H, MCH 32.7 H, MCHC 31.1 L, RDW Std Deviation 62.6 H, RDW Coeff of Alanna 16.5 H, Plt Count 227, MPV 9.9, Immature Gran % (Auto) 1.000 H, Neut % (Auto) 87.0 H, Lymph % (Auto) 8.5 L, [place] % (Auto) 2.8, Eos % (Auto) 0.6, Baso % (Auto) 0.1, Absolute Neuts (auto) 11.8 H, Absolute Lymphs (auto) 1.15, Nucleated RBC % 0, Sodium 133 L, Potassium 3.0 L, Chloride 97 L, Carbon Dioxide 27.0, Anion Gap 9, BUN 31 H, Creatinine 5.75 H, Estim Creat Clear Calc 5.61, Est GFR (MDRD) Af Amer 9 L, Est GFR (MDRD) Non-Af 8 L, BUN/Creatinine Ratio 5.4 L, Glucose 80, Lactic Acid 2.2 H*, Calcium 7.7 L, Troponin I High Sens 27, TSH 5.16 H, Free T4 1.26 10/11/22 19:05: Lactic Acid 1.8 10/11/22 21:47: POC Glucose 58 L 10/12/22 03:03: WBC 20.5 H, RBC 2.70 L, Hgb 8.9 L, Hct 27.6 L, MCV 102.2 H, MCH 33.0 H, MCHC 32.2, RDW Std Deviation 61.2 H, RDW Coeff of Alanna 16.5 H, Plt Count 269, MPV 9.9, Immature Gran % (Auto) 1.900 H, Neut % (Auto) 86.2 H, Lymph % (Auto) 8.1 L, [place] % (Auto) 3.4, Eos % (Auto) 0.3, Baso % (Auto) 0.1, Absolute Neuts (auto) 17.7 H, Absolute Lymphs (auto) 1.67, Nucleated RBC % 0, Sodium 137, Potassium 4.1, Chloride 103, Carbon Dioxide 26.0, Anion Gap 8, BUN 37 H, Creatinine 5.88 H, Estim Creat Clear Calc 5.48, Est GFR (MDRD) Af Amer 9 L, Est GFR (MDRD) Non-Af 7 L, BUN/Creatinine Ratio 6.3 L, Glucose 84, Calcium 7.5 L, Phosphorus 5.2 H, Magnesium 1.7 ABG Data ABG results: ABG 10/11/22 13:02 Specimen Type ESAU VBG pH 7.34 VBG pO2 45 H VBG HCO3 27 H VBG Total CO2 28 VBG O2 Sat (Calc) 78 H VBG Base Excess 1 POC Mix VBG pCO2 Pt Tmp 48.9 Radiology Impression Chest X-Ray 10/11/22 12:06 IMPRESSION: Borderline cardiomegaly. Blunting of the left costophrenic angle. Electronically Signed: Anselmo Best MD at 12:40 EDT , Brain CT 10/11/22 12:13 IMPRESSION: Chronic involutional changes of the brain. Sinusitis. 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 Small left renal cysts. A peritoneal dialysis catheter is seen in the right side of the lower pelvis. Subcutaneous edema overlying the inferior left lateral wall and upper pelvis most likely representing possible contusion with the patient''s history of a fall. Electronically Signed: Anselmo Best MD at 12:52 EDT , Knee X-Ray 10/11/22 12:25 IMPRESSION: Status post total knee replacement. No fracture is seen. Electronically Signed: Anselmo Best MD at 12:46 EDT , Chest X-Ray 10/11/22 17:10 IMPRESSION: Right IJ line terminates in the SVC. No pneumothorax. Electronically Signed: Joann Martinez MD at 17:42 EDT Reading Location ID and State: [id number] / Tel , Service support , Charges/Coding Procedures Hospitalists Procedures: [id number] Critial Care 1st Hr
--- NOTE | 2022-10-12 07:21 | PN.HOSP_ITS ---
Reason for Visit Reason for Visit: Septic shock Subjective Subjective Patient is an 82-year-old lady with history of end-stage renal disease on peritoneal dialysis presented with syncopal episode found to be hypotensive with elevated lactic acid and leukocytosis. An assessment of septic shock was made admitted to the intensive care unit. Patient remains on pressors Objective Data Objective Data Vital Signs: Vital Signs Temp Pulse Resp BP Pulse Ox O2 Del Method O2 Flow Rate 97.6 F L 80 27 H 138/72 H 94 Room Air 2 10/12/22 03:00 10/12/22 07:00 10/12/22 07:00 10/12/22 07:00 10/12/22 07:00 10/12/22 07:00 10/11/22 17:15 Oxygen Flow Rate (L/min) 2 Oxygen Delivery Method Room Air Weight: 101.8 kg Body Mass Index (BMI) 43.8 Intake & Output: Intake and Output for Last 24 Hours 10/10/22 10/11/22 10/12/22 23:59 23:59 23:59 Intake Total 3921.73 / 3959.23 869.28 / 869.28 Output Total 0 / 0 Balance 3921.73 / 3959.23 869.28 / 869.28 Lab / Micro Data 10/12/22 03:03 10/12/22 03:03 Labs: Laboratory Results - last 24 hr 10/11/22 12:45: WBC 13.6 H, RBC 2.54 L, Hgb 8.3 L, Hct 26.7 L, MCV 105.1 H, MCH 32.7 H, MCHC 31.1 L, RDW Std Deviation 62.6 H, RDW Coeff of Alanna 16.5 H, Plt Count 227, MPV 9.9, Immature Gran % (Auto) 1.000 H, Neut % (Auto) 87.0 H, Lymph % (Auto) 8.5 L, [place] % (Auto) 2.8, Eos % (Auto) 0.6, Baso % (Auto) 0.1, Absolute Neuts (auto) 11.8 H, Absolute Lymphs (auto) 1.15, Nucleated RBC % 0, Sodium 133 L, Potassium 3.0 L, Chloride 97 L, Carbon Dioxide 27.0, Anion Gap 9, BUN 31 H, Creatinine 5.75 H, Estim Creat Clear Calc 5.61, Est GFR (MDRD) Af Amer 9 L, Est GFR (MDRD) Non-Af 8 L, BUN/Creatinine Ratio 5.4 L, Glucose 80, Lactic Acid 2.2 H*, Calcium 7.7 L, Troponin I High Sens 27, TSH 5.16 H, Free T4 1.26 10/11/22 19:05: Lactic Acid 1.8 10/11/22 21:47: POC Glucose 58 L 10/12/22 03:03: WBC 20.5 H, RBC 2.70 L, Hgb 8.9 L, Hct 27.6 L, MCV 102.2 H, MCH 33.0 H, MCHC 32.2, RDW Std Deviation 61.2 H, RDW Coeff of Alanna 16.5 H, Plt Count 269, MPV 9.9, Immature Gran % (Auto) 1.900 H, Neut % (Auto) 86.2 H, Lymph % (Auto) 8.1 L, [place] % (Auto) 3.4, Eos % (Auto) 0.3, Baso % (Auto) 0.1, Absolute Neuts (auto) 17.7 H, Absolute Lymphs (auto) 1.67, Nucleated RBC % 0, Sodium 137, Potassium 4.1, Chloride 103, Carbon Dioxide 26.0, Anion Gap 8, BUN 37 H, Creatinine 5.88 H, Estim Creat Clear Calc 5.48, Est GFR (MDRD) Af Amer 9 L, Est GFR (MDRD) Non-Af 7 L, BUN/Creatinine Ratio 6.3 L, Glucose 84, Calcium 7.5 L, Phosphorus 5.2 H, Magnesium 1.7 ABG Data ABG results: ABG 10/11/22 13:02 Specimen Type ESAU VBG pH 7.34 VBG pO2 45 H VBG HCO3 27 H VBG Total CO2 28 VBG O2 Sat (Calc) 78 H VBG Base Excess 1 POC Mix VBG pCO2 Pt Tmp 48.9 Radiography Diagnostic Testing: Radiology Impression Chest X-Ray 10/11/22 12:06 IMPRESSION: Borderline cardiomegaly. Blunting of the left costophrenic angle. Electronically Signed: Anselmo Best MD at 12:40 EDT , Brain CT 10/11/22 12:13 IMPRESSION: Chronic involutional changes of the brain. Sinusitis. 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 Small left renal cysts. A peritoneal dialysis catheter is seen in the right side of the lower pelvis. Subcutaneous edema overlying the inferior left lateral wall and upper pelvis most likely representing possible contusion with the patient''s history of a fall. Electronically Signed: Anselmo Best MD at 12:52 EDT , Knee X-Ray 10/11/22 12:25 IMPRESSION: Status post total knee replacement. No fracture is seen. Electronically Signed: Anselmo Best MD at 12:46 EDT , Chest X-Ray 10/11/22 17:10 IMPRESSION: Right IJ line terminates in the SVC. No pneumothorax. Electronically Signed: Joann aMrtinez MD at 17:42 EDT Reading Location ID and State: [id number] / Tel , Service support , Physical Exam Narrative GENERAL: Cooperative HEENT: Atraumatic; normocephalic EYES; Anicteric, Normal Conjunctiva NECK; supple, normal thyroid, RESPIRATORY: Diminished to auscultation CARDIOVASCULAR: Regular S1 S2, GI: soft, normoactive bowel sounds, : No Renal angle tenderness; EXTREMITIES: 1+ bipedal edema MUSCULOSKELETAL: no muscle wasting NEURO: Awake; no lateralizing signs. SKIN: No Rash PSYCH; Flat affect Assessment & Plan Assessment/Plan (1) Septic shock: PLAN: Plan Patient is an 82-year-old lady with history of end-stage renal disease on peritoneal dialysis presented with syncopal episode found to be hypotensive with elevated lactic acid and leukocytosis 1. Septic shock ? Patient met criteria for septic shock with presence of a suspected infection with SIRS criteria?S as well as evidence of endorgan dysfunction with lactic acid level greater than 2. Patient did receive IV fluid in the emergency department without much response decision was subsequently made to start patient on Levophed after central line had been placed with plan for patient to be admitted to the intensive care unit. As part of her management did obtain blood as well as cultures from her peritoneal fluid. Started on broad-spectrum antibiotic therapy with Zosyn and vancomycin ? 10/12/2022; patient remains on pressors 2. Syncopal episode ? From hypotension from her suspected septic shock as well as possible hypovolemia from her peritoneal dialysis being resuscitated with IV fluid as discussed above 3. End-stage renal disease ? Patient is on peritoneal dialysis consult placed to Dr. Ovalle for dialysis orders. ? 10/12/2022 patient's family to run patient's dialysis 4. Diabetes mellitus type II -patient's oral hypoglycemics held. Placed on long acting insulin, Accu-Cheks a.c. and at bedtime and covered with sliding scale insulin 5. Anemia - Secondary to chronic disorder monitoring H&H and transfuse if patient becomes symptomatic or hemoglobin falls below 7 6. Dyslipidemia -Patient is on statin therapy, continued at home dose 7. Essential hypertension ? Patient antihypertensives held given her presentation low blood pressure 8. Hypothyroidism - Patient is on levothyroxine home dose continued 9. GERD ? On PPI 10. Hypokalemia ? Corrected per protocol repeat labs ordered in a.m. for monitoring 11. 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 Nonobstructive coronary artery disease ? Currently stable on recommended medications 13. Depression with anxiety ? Patient is on bupropion 14. Class II obesity with BMI of 39.1 - complicating care, Weight loss advised 15. DVT prophylaxis ? SC heparin Time time spent in the patient's overall evaluation,decision-making process, review of diagnostic data, adjustment of management, discussion with other providers, nursing nursing and ancillary staff involved in patient's care documentation 50 minutes Charges/Coding Visit Charges Inpatient E&M: 10114 Subs Hosp L3
[2022-10-12] MEDS: Budesonide Respules 0.5 MG/2 ML AMPUL.NEB. INHALATION ×2 (07:30→20:46)
[2022-10-12] MEDS: Ipratropium 0.5 MG/2.5 ML SOLUTION INHALATION ×3 (07:31→20:46)
[2022-10-12 08:06] LABS: Bedside Glucose 65 mg/dL (74-106)
[2022-10-12] MEDS: Pantoprazole Sodium 40 MG Tablet PO (09:24)
[2022-10-12] MEDS: Magnesium Chloride 64 MG Delay Rel.Tablet 128 MG PO (09:24)
[2022-10-12] MEDS: buPROPion 100 MG Tablet PO ×2 (09:24→23:00)
[2022-10-12] MEDS: Calcium Acetate 667 MG Capsule PO ×3 (09:24→17:52)
[2022-10-12] MEDS: Aspirin E.C. 81 MG Tablet PO (09:24)
[2022-10-12] MEDS: Cyanocobalamin 500 MCG Tablet PO (09:25)
[2022-10-12] MEDS: Pioglitazone Hydrochloride 30 MG Tablet PO (09:25)
[2022-10-12] MEDS: Heparin Injection (Vial) 5,000 UNIT/ML VIAL 5000 UNIT SC ×2 (09:30→22:59)
[2022-10-12 11:53] LABS: M R Staph aureus DNA By PCR Negative (Negative); Probe Check PASS; Specimen Processing Control PASS
[2022-10-12 12:12] LABS: Bedside Glucose 93 mg/dL (74-106)
--- NOTE | 2022-10-12 12:15 | CASEMGMT ---
RN ARELIS Face to Face with patient for initial transition planning/care coordination assessment. RN CM introduced self and role at [facility]. Patient lying in bed, alert and oriented. Patient willing to participate in assessment and is able to answer all questions appropriately. Care providers, pharmacy, and demographics verified. Patient wishes to discharge home but willing to go to SNF if needed, will monitor progress with therapy. Patient states she has no further needs or concerns at this time. SW notified for possible SNF. CM to follow for discharge planning needs that may arise. PCP: Shnaa Specialists: [facility], Efrain, chronic disease epidemiologist; Yamile, payable manager; Dayana partition assembler Preferred Pharmacy: [facility] Insurance: [employer] Prescription Benefit: yes Living Will/HPOA: none LNOK: son, daughter Living Arrangements: Patient lives alone in a split level home with 6-7 steps per level with railing. Patient was independent at home. Transportation: self, daughter DME/HHC: Patient has shower chair, raised toilet, cane, walker, grab bars, lift chair, and nebulizer at home. Patient completes PD at home. Patient has been to [facility] and [facility] in the past. Patient believes she had [facility] in the past. Disposition Plan: TBD, anticipate SNF at discharge, will monitor course of treatment and progress with therapy. Chery QUIROZ, RN, CM
[2022-10-12 13:24] LABS: Glucose, Body Fluid 78 mg/dL (40-70); LDH,Body Fluid 506 Units/l (Not Establ.)
[2022-10-12 14:13] LABS: Appearance/Body Fluid SL CLDY; Auto B Fluid Analyzer BKGD Ct COUNTS W/IN LIMITS (W/IN LIMITS); Color/Body Fluid YELLOW
[2022-10-12 14:14] LABS: White Blood Count/Body Fluid 3.383 10^3/uL
[2022-10-12 14:15] LABS: Red Cell Count/Body Fluid 2 /mm3
[2022-10-12 14:18] LABS: Body Fluid QC Type(s) BF1Q,BF2Q; Source- Body Fluid THORACENTESIS
[2022-10-12 14:26] LABS: Lymphocytes 2 %; Monocytes 10 %; Neutrophil (Segs) 73 %; Other Cell Type/BF 15 %
--- NOTE | 2022-10-12 17:32 | PCM.CONS.R ---
Assessment & Plan Assessment/Plan (1) ESRD on peritoneal dialysis: (2) Septic shock: PLAN: Plan Impression/Plan: The patient is a 82-year-old woman with past history of ESRD, type 2 diabetes mellitus, hypertension, CAD, heart failure with preserved ejection fraction, PAD, hypothyroidism, and hyperlipidemia. The patient presented to the hospital on 10/11/2022 with syncope and was diagnosed with circulatory shock requiring IV vasopressor and volume expansion. Nephrology is following for ESRD. ESRD. Continue CCPD using 1.5% dextrose. Family was able to help with set up on her usual CCPD prescription. The patient does not appear to be volume overloaded despite volume expansion with IV fluid. We will continue 1.5% dextrose to minimize ultrafiltration. Reassess volume status, electrolyte, and acid-base status again tomorrow. Circulatory shock. Could be a combination of hypovolemic and septic shock. The patient was trying to intentionally take more fluid off with dialysis prior to admission. She is receiving some fluid back. We will have to monitor for volume overload. At this point, there is no signs of volume overload. Another possibility would be sepsis. She did have abdominal pain on presentation with cloudy PD effluent. The patient had cloudy effluent even on 10/09/2022. Cell count and culture were sent as outpatient as well. PD effluent has been sent for cell count and culture today. She is on Zosyn and vancomycin which should cover most common causes of bacterial peritonitis in PD patients. The patient is requiring IV vasopressor although the requirement is coming down. HPI Consult Data Date of Consult: 10/12/22 HPI Narrative Reason for Consultation: ESRD HPI Narrative: The patient is an 82-year-old woman with past history of ESRD, type 2 diabetes mellitus, hypertension, CAD, heart failure with preserved ejection fraction, PAD, hypothyroidism, and hyperlipidemia. The patient presents to the hospital on 10/11/2022 with dizziness and weakness. During evaluation in ED, the patient was found to be hypotensive with elevated lactate level. The patient is admitted to ICU because of vasopressor requiring shock and is being covered by broad-spectrum antimicrobial. Nephrology is asked to see the patient because of ESRD and dialysis needs. The patient is on home dialysis with CCPD. She is followed as outpatient by my partner, Dr. Ovalle. The patient feels better overall since admission. The patient reports that she had been trying to remove more fluid with PD over the last few days because of increasing edema of the lower extremities and increasing dyspnea. BP is better today with volume expansion. The patient denies current chest pain, nausea, vomiting, or diarrhea. The patient did report abdominal pain with cloudy effluent. There has been no fever or chills. Lower extremity edema has improved. [facility] Medical History Acute respiratory failure Albuminuria Asthma Bilateral carotid artery stenosis Chronic anemia Chronic diastolic CHF (congestive heart failure) Chronic kidney disease Esophageal dysphagia ESRD on peritoneal dialysis Essential hypertension GERD (gastroesophageal reflux disease) Glaucoma Hyperlipidemia Hyperparathyroidism, secondary renal Hypothyroidism Leg wound, right Lichenification and lichen simplex chronicus Major depressive disorder Methicillin resistant Staphylococcus epidermidis infection Neurodermatitis Non-proliferative diabetic retinopathy, both eyes Nonobstructive atherosclerosis of coronary artery Normocytic anemia Nummular eczema Obesity Open wound of right forearm 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) Recurrent syncope (03/28/21) Severe protein-calorie malnutrition Skin tear of right forearm without complication Skin tear of right lower leg without complication Stage 3 chronic kidney disease Stenosis of left carotid artery Torsades de pointes (03/28/21) Transient visual loss, right eye (11/2020) Type II diabetes mellitus Ventricular tachycardia Vitamin B 12 deficiency Home Medications atorvastatin 80 mg tablet 80 mg PO QHS CHOLESTEROL 10/12/18 [History Last Taken 10/10/22] omeprazole 40 mg capsule,delayed release 40 mg PO DAILY ACID REFLUX 10/12/18 [History Last Taken 10/10/22] albuterol sulfate 90 mcg/actuation aerosol inhaler 2 puff inhalation Q4H PRN SHORTNESS OF BREATH 10/13/18 [History Last Taken Unknown] montelukast 10 mg tablet 10 mg PO QHS ALLERGIES 10/26/19 [History Last Taken 10/10/22] acetaminophen 325 mg tablet 650 mg PO Q4H PRN pain/fever 05/10/21 [History Last Taken Unknown] ergocalciferol (vitamin D2) 50,000 unit tablet 50,000 unit PO MO SUPPLEMENT 05/10/21 [History Last Taken 10/07/22] ipratropium 0.5 mg-albuterol 3 mg (2.5 mg base)/3 mL nebulization soln 3 ml inhalation Q6H PRN SHORTNESS OF BREATH 05/10/21 [History Last Taken Unknown] fluticasone propionate 110 mcg/actuation HFA aerosol inhaler (Flovent HFA) 1 puff inhalation BID PRN Wheezing 02/08/22 [History Last Taken Unknown] latanoprost 0.005 % eye drops 1 drp ophthalmic (eye) ONCE GLAUCOMA 02/08/22 [History Last Taken Unknown] meclizine 12.5 mg tablet 12.5 mg PO BID VERTIGO 02/08/22 [History Last Taken 10/10/22] tiotropium bromide 2.5 mcg/actuation mist for inhalation (Spiriva Respimat) 2 puff inhalation QAM PRN Wheezing 02/08/22 [History Last Taken Unknown] bupropion HCl 100 mg tablet 100 mg PO BID DEPRESSION 08/16/22 [History Last Taken 10/10/22] insulin glargine 100 unit/mL (3 mL) subcutaneous pen (Lantus Solostar U-100 Insulin) 8 unit subcut DAILY BLOOD SUGARS 08/16/22 [History Last Taken 10/10/22] levothyroxine 137 mcg tablet 137 mcg PO MOTUWETH 08/16/22 [History Last Taken 10/10/22] potassium chloride 20 mEq tablet,extended release 20 meq PO MOFR SUPPLEMENT 08/16/22 [History Last Taken 10/07/22] aspirin 81 mg tablet,delayed release (Adult Aspirin Regimen) 81 mg PO DAILY HEART HEALTH 10/11/22 [History Last Taken 10/10/22] calcitriol 0.25 mcg capsule 0.25 mcg PO WEFR 10/11/22 [History Last Taken 10/09/22] calcium acetate(phosphat bind) 667 mg capsule 667 mg PO TID 10/11/22 [History Last Taken Unknown] carvedilol 12.5 mg tablet 12.5 mg PO DAILY HEART 10/11/22 [History Last Taken 10/10/22] levothyroxine 137 mcg capsule 205.5 mcg PO SUFRSA THYROID 10/11/22 [History Last Taken 10/06/22] magnesium oxide 400 mg PO DAILY SUPPLEMENT 10/11/22 [History Last Taken 10/10/22] mecobalamin (vitamin B12) 500 mcg chewable tablet 500 mcg PO DAILY SUPPLEMENT 10/11/22 [History Last Taken 10/10/22] pioglitazone 30 mg tablet 30 mg PO DAILY DIABETES 10/11/22 [History Last Taken 10/10/22] Allergy/AdvReac Type Severity Reaction Status Date / Time metformin [From Glucophage] Allergy Severe renal Verified 10/11/22 11:40 failure adhesive Allergy Intermediate blisters Verified 10/11/22 11:40 oxycodone Allergy Intermediate hallucinati Verified 10/11/22 11:40 ons tramadol Allergy Intermediate Vomiting Verified 10/11/22 11:40 ERIC Inhibitors AdvReac Intermediate cough Verified 10/11/22 11:40 buspirone [From BuSpar] AdvReac Hallucinati Verified 10/11/22 11:40 ons Family History Father Heart disease Hypertension Suicide Mother Hypertension CVA (cerebral vascular accident) COPD (chronic obstructive pulmonary disease) CAD (coronary artery disease) Surgical History History of bilateral knee replacement (1989) History of breast biopsy History of implantable cardiac defibrillator (ICD) (04/02/21) History of left heart catheterization (03/28/21) History of open reduction and internal fixation (ORIF) procedure History of right cataract extraction (10/03/11) History of temporary cardiac pacemaker treatment (03/28/21) History of tonsillectomy Social History household members: none Smoking Status: Never smoker alcohol intake: never substance use type: does not use caffeine: Yes Type: coffee Number of servings: 2 ROS ROS Narrative 01/07 ROS was done and is otherwise noncontributory to HPI. Physical Exam Narrative General: Alert and oriented x3, NAD. HEENT: Normocephalic, atraumatic. Mucous membrane moist without erythema. PERRLA, EOMI. Hearing is intact. Neck: Supple, no JVD. Trachea is midline. No thyromegaly or lymphadenopathy. Cardiovascular: Normal S1, S2. No rubs, murmurs, or gallops. Respiratory: Lungs are clear to auscultation bilaterally. No wheezing, rhonchi, or rales. Abdomen: Normal bowel sounds, soft, mildly tender on palpation. However, there is no guarding or rebound, no organomegaly. Extremities: No clubbing, cyanosis, or edema. Musculoskeletal: Full passive range of motion, no joint swelling. Psychiatric: Normal mood and affect. Skin: Warm and dry, no rash. Neurologic: Cranial nerve II to XII are grossly intact. No focal neurologic deficits. Lab / Micro Data 10/12/22 03:03 10/12/22 03:03 Labs: Laboratory Results - last 24 hr 10/11/22 19:05: Lactic Acid 1.8 10/11/22 21:47: POC Glucose 58 L 10/12/22 03:03: WBC 20.5 H, RBC 2.70 L, Hgb 8.9 L, Hct 27.6 L, MCV 102.2 H, MCH 33.0 H, MCHC 32.2, RDW Std Deviation 61.2 H, RDW Coeff of Alanna 16.5 H, Plt Count 269, MPV 9.9, Immature Gran % (Auto) 1.900 H, Neut % (Auto) 86.2 H, Lymph % (Auto) 8.1 L, [place] % (Auto) 3.4, Eos % (Auto) 0.3, Baso % (Auto) 0.1, Absolute Neuts (auto) 17.7 H, Absolute Lymphs (auto) 1.67, Nucleated RBC % 0, Sodium 137, Potassium 4.1, Chloride 103, Carbon Dioxide 26.0, Anion Gap 8, BUN 37 H, Creatinine 5.88 H, Estim Creat Clear Calc 5.48, Est GFR (MDRD) Af Amer 9 L, Est GFR (MDRD) Non-Af 7 L, BUN/Creatinine Ratio 6.3 L, Glucose 84, Calcium 7.5 L, Phosphorus 5.2 H, Magnesium 1.7 10/12/22 07:47: POC Glucose 65 L 10/12/22 09:30: MRSA (PCR) Negative 10/12/22 11:54: POC Glucose 93 10/12/22 12:50: Fluid Source THORACENTESIS, Fluid Color YELLOW, Fluid Appearance SL CLDY, Fluid WBC 3.383, Fluid RBC 2, Fluid Tot Cell Count Not Reportable, Fluid Neutrophils 73, Fluid Lymphocytes 2, Fluid Monocytes 10, Fluid Other Cells 15, Fl Pathologist Comment May follow, Fluid Glucose 78 H, Fluid Total Protein 1.0, Fluid LDH 506, Fluid Comment 2 SEE COMMENT Micro: Microbiology 10/12/22 12:50 Fluid - Paracentesis (Abd) Gram Stain - Final Radiology Impression Chest X-Ray 10/11/22 17:10 IMPRESSION: Right IJ line terminates in the SVC. No pneumothorax. Electronically Signed: Joann Martinez MD at 17:42 EDT Reading Location ID and State: [id number] / Tel , Service support ,
[2022-10-12] MEDS: Insulin Lispro 100 UNIT/ML INSULN.PEN SC (17:48)
[2022-10-12 17:54] LABS: Bedside Glucose 163 mg/dL (74-106)
[2022-10-12 21:38] LABS: Bedside Glucose 133 mg/dL (74-106)
--- NOTE | 2022-10-12 21:57 | CASEMGMT ---
Social Work A list SNF of providers including quality and resource use data and consistent with patient?s preferred geographic region, medical needs, and insurance network were provided from the [employer] Guide. Pt is requesting to review with her daughter. Veronica Castro BASKET WEAVER, INFECTION CONTROL NURSE
[2022-10-12] MEDS: Montelukast 10 MG Tablet PO (23:00)
[2022-10-12] MEDS: Latanoprost 0.005% 1 Bottle 1 DRP EACH EYE (23:00)
[2022-10-12] MEDS: Atorvastatin Calcium 80 MG Tablet PO (23:00)
[2022-10-13] VITALS (76 sets, daily range): BP systolic 90–147; BP diastolic 36–115; PULSE 69–77; RESP 16–25; TEMP 36.2–36.9; O2SAT 87–100; BMI 43.9
[2022-10-13] MEDS: 0.9% Normal Saline 1,000 ML 50 ML IV (05:03)
[2022-10-13] MEDS: Levothyroxine 137 MCG Tablet 205.5 MCG PO (05:06)
[2022-10-13 05:25] LABS: Absolute Lymphocyte Count 1.45 X10^3/uL (0.83-4.51); Absolute Neutrophil Count 10.4 X10^3/uL (2.0-7.7); Basophil# 0.04 X10^3/uL; Basophil% 0.3 % (0-1); Eosinophil# 0.25 X10^3/uL; Hematocrit 25.8 % (37-47); Hemoglobin 8.3 g/dL (12.0-15.0); Lymphocyte # 1.45 X10^3/ul (0.83-4.51); Lymphocyte % 11.3 % (19-41); Mean Corp Hgb Conc 32.2 g/dL (32-36); Mean Corpuscular Hgb 32.8 pg (27.0-32.0); Mean Platelet Vol. 9.7 fl (6.2-12.0); Monocyte# 0.52 X10^3/uL; Monocyte% 4.1 % (0-10); NRBC Flagged by Analyzer 0.2 % (0-5); Neutrophil # 10.41 X10^3/uL (2.7-7.7); Neutrophil % 81.1 % (47-70); Platelet Count 260 K/mm3 (150-450); RBC Distribution Width CV 16.9 % (11.6-14.6); RBC Distribution Width SD 62.4 fl (35.1-43.9); Red Blood Count 2.53 M/mm3 (4.2-5.4); White Blood Count 12.8 K/mm3 (4.4-11.0)
[2022-10-13 05:40] LABS: Anion Gap 8 (5-15); BUN 36 mg/dL (7-18); BUN/Creat Ratio 6.6 RATIO (10-20); Calcium,Total 7.6 mg/dL (8.5-10.1); Chloride 103 mmol/L (98-107); Creatinine, Serum 5.47 mg/dL (0.55-1.02); EST Glomerular Filtration Rate 8 mL/min (>60); Est Glom Filt Rate - Afr Amer 10 mL/min (>60); Estimated Creatinine Clearance 5.89 ml/min; Glucose 152 mg/dL (74-106); Potassium 3.5 mmol/L (3.5-5.1); Sodium Level 136 mmol/L (136-145)
[2022-10-13 05:42] LABS: Vancomycin, Random Level 19.8 ug/mL (0.0-15.0)
--- NOTE | 2022-10-13 06:20 | PN.CC_ITS ---
Assessment & Plan Assessment/Plan (1) Septic shock: PLAN: Plan RECOMMENDATIONS: 1. Continue empiric broad-spectrum antimicrobials. 2. Continue vasopressor support to maintain mean arterial pressure at or above 65 mmHg. 3. Dialysis support per nephrology recommendations. 4. Continue appropriate DVT prophylaxis. 5. Continue Accu-Cheks and sliding scale insulin. IMPRESSIONS: 1. Undifferentiated shock Potential considerations include septic versus hypovolemic shock. Apparently, the patient's peritoneal dialysis sessions was being augmented to facilitate additional fluid removal recently. Therefore, intravascular volume depletion is certainly a possibility. While sepsis is a possibility, no definitive source of infection has yet to be identified. The patient reported that she does not make urine at her baseline. Blood cultures have already been obtained. There was no focal finding noted on chest imaging. Given that the patient does have a peritoneal catheter and cloudy PD effluent, SBP would be a possibility. Nevertheless, the patient has been initiated on empiric broad-spectrum antimicrobials, pending finalized culture results. Plan to continue vasopressor support to maintain mean arterial pressure at or above 65 mmHg. 2. Syncope Most likely related to presenting hypotension, which may have been related to intravascular volume depletion versus sepsis. Plan to continue supportive measures as noted above. The patient is alert and appropriately interactive. 3. History of chronic kidney disease on peritoneal dialysis Nephrology is following to assist with medical management. 4. Morbid obesity/hyperlipidemia/hypertension/hypothyroidism/diabetes mellitus Complicates care, management, recovery and prognosis. Continue supportive measures as noted above. Continue Accu-Cheks and sliding scale insulin coverage. TIME: 32 minutes of critical care time, independent of procedures, was spent addressing the patient's undifferentiated shock, syncope, review of all data and collaboration with the care team. Subjective Subjective The patient was seen and examined at the bedside this morning. Events from the last 24 hours have been reviewed. The patient is afebrile and maintaining appropriate oxygen saturations on room air. The patient has been weaned off of vasopressin. Her Levophed requirement has been weaned down to 7 mcg/min. The patient is documented to be overall net +7.5 L for the hospitalization. The patient has been tolerant of peritoneal dialysis. She has no specific complaints this morning. Objective Data Objective Data The patient's most recent lab work, culture data and imaging studies have all been personally reviewed. Blood and peritoneal cultures are pending. Vital Signs: Vital Signs Temp Pulse Resp BP Pulse Ox O2 Del Method O2 Flow Rate 98.2 F 70 18 135/87 H 93 Room Air 2 10/13/22 05:00 10/13/22 05:00 10/13/22 05:00 10/13/22 05:00 10/13/22 05:00 10/13/22 05:00 10/11/22 17:15 Oxygen Flow Rate (L/min) 2 Oxygen Delivery Method Room Air Weight: 224 lb 6.889 oz Body Mass Index (BMI) 43.8 Intake & Output: Intake and Output for Last 24 Hours 10/11/22 10/12/22 10/13/22 23:59 23:59 23:59 Intake Total 3921.73 / 3959.23 2820.86 / 2820.86 801.53 / 801.53 Output Total 0 / 0 0 / 0 Balance 3921.73 / 3959.23 2820.86 / 2820.86 801.53 / 801.53 Lab / Micro Data Attestation: I reviewed the patient's lab results. 10/13/22 05:15 10/13/22 05:15 Labs: Laboratory Results - last 24 hr 10/12/22 07:47: POC Glucose 65 L 10/12/22 09:30: MRSA (PCR) Negative 10/12/22 11:54: POC Glucose 93 10/12/22 12:50: Fluid Source THORACENTESIS, Fluid Color YELLOW, Fluid Appearance SL CLDY, Fluid WBC 3.383, Fluid RBC 2, Fluid Tot Cell Count Not Reportable, Fluid Neutrophils 73, Fluid Lymphocytes 2, Fluid Monocytes 10, Fluid Other Cells 15, Fl Pathologist Comment May follow, Fluid Glucose 78 H, Fluid Total Protein 1.0, Fluid LDH 506, Fluid Comment 2 SEE COMMENT 10/12/22 17:36: POC Glucose 163 H 10/12/22 21:19: POC Glucose 133 H 10/13/22 05:15: WBC 12.8 H, RBC 2.53 L, Hgb 8.3 L, Hct 25.8 L, MCV 102.0 H, MCH 32.8 H, MCHC 32.2, RDW Std Deviation 62.4 H, RDW Coeff of Alanna 16.9 H, Plt Count 260, MPV 9.7, Immature Gran % (Auto) 1.200 H, Neut % (Auto) 81.1 H, Lymph % (Auto) 11.3 L, [place] % (Auto) 4.1, Eos % (Auto) 2.0, Baso % (Auto) 0.3, Absolute Neuts (auto) 10.4 H, Absolute Lymphs (auto) 1.45, Nucleated RBC % 0.2, Sodium 136, Potassium 3.5, Chloride 103, Carbon Dioxide 25.0, Anion Gap 8, BUN 36 H, Creatinine 5.47 H, Estim Creat Clear Calc 5.89, Est GFR (MDRD) Af Amer 10 L, Est GFR (MDRD) Non-Af 8 L, BUN/Creatinine Ratio 6.6 L, Glucose 152 H, Calcium 7.6 L, Random Vancomycin 19.8 H Micro: Microbiology 10/12/22 12:50 Fluid - Paracentesis (Abd) Gram Stain - Final Physical Exam Const alert and no apparent distress General Appearance: cooperative HEENT normocephalic and head/scalp atraumatic Eyes PERRL, EOMs intact bilaterally and conjunctivae normal Neck supple General: trachea midline and CVC in place Chest inspection of chest normal Resp normal respiratory effort Auscultation: Negative for rales, rhonchi or wheezes Cardio regular rate and regular rhythm GI normal to inspection, nondistended, normoactive bowel sounds Extremity Extremity Narrative: Trace lower extremity edema Skin no rashes or lesions noted Neuro CN's II-XII intact bilaterally, moves all extremities and no focal motor deficits Psych cooperative and affect normal Charges/Coding Procedures Hospitalists Procedures: 93605 Critial Care 1st Hr
[2022-10-13] MEDS: Budesonide Respules 0.5 MG/2 ML AMPUL.NEB. INHALATION ×2 (07:07→19:18)
[2022-10-13] MEDS: Ipratropium 0.5 MG/2.5 ML SOLUTION INHALATION ×3 (07:07→19:18)
--- NOTE | 2022-10-13 07:20 | PCM.PN.HOSP ---
Reason for Visit Reason for Visit: Diagnoses Sepsis, unspecified organism (10/11/22) End stage renal disease (10/11/22) Severe sepsis with septic shock (10/11/22) Dependence on renal dialysis (10/11/22) Subjective Subjective Seen still remains on Levophed but currently being weaned off. Did initiate midodrine in order to facilitate weaning of Levophed. Patient had peritoneal dialysis during the evening. She complains of shortness of breath this AM. Aerosol treatment given. Objective Data Objective Data Vital Signs: Vital Signs Temp Pulse Resp BP Pulse Ox O2 Del Method O2 Flow Rate 98.2 F 70 24 H 117/94 H 92 Room Air 2 10/13/22 07:00 10/13/22 07:08 10/13/22 07:08 10/13/22 07:00 10/13/22 07:08 10/13/22 07:08 10/11/22 17:15 Oxygen Flow Rate (L/min) 2 Oxygen Delivery Method Room Air Weight: 102.1 kg Body Mass Index (BMI) 43.9 Intake & Output: Intake and Output for Last 24 Hours 10/11/22 10/12/22 10/13/22 23:59 23:59 23:59 Intake Total 3921.73 / 3959.23 2820.86 / 2820.86 801.53 / 801.53 Output Total 0 / 0 0 / 0 Balance 3921.73 / 3959.23 2820.86 / 2820.86 801.53 / 801.53 Lab / Micro Data 10/13/22 05:15 10/13/22 05:15 Labs: Laboratory Results - last 24 hr 10/12/22 07:47: POC Glucose 65 L 10/12/22 09:30: MRSA (PCR) Negative 10/12/22 11:54: POC Glucose 93 10/12/22 12:50: Fluid Source THORACENTESIS, Fluid Color YELLOW, Fluid Appearance SL CLDY, Fluid WBC 3.383, Fluid RBC 2, Fluid Tot Cell Count Not Reportable, Fluid Neutrophils 73, Fluid Lymphocytes 2, Fluid Monocytes 10, Fluid Other Cells 15, Fl Pathologist Comment May follow, Fluid Glucose 78 H, Fluid Total Protein 1.0, Fluid LDH 506, Fluid Comment 2 SEE COMMENT 10/12/22 17:36: POC Glucose 163 H 10/12/22 21:19: POC Glucose 133 H 10/13/22 05:15: WBC 12.8 H, RBC 2.53 L, Hgb 8.3 L, Hct 25.8 L, MCV 102.0 H, MCH 32.8 H, MCHC 32.2, RDW Std Deviation 62.4 H, RDW Coeff of Alanna 16.9 H, Plt Count 260, MPV 9.7, Immature Gran % (Auto) 1.200 H, Neut % (Auto) 81.1 H, Lymph % (Auto) 11.3 L, [place] % (Auto) 4.1, Eos % (Auto) 2.0, Baso % (Auto) 0.3, Absolute Neuts (auto) 10.4 H, Absolute Lymphs (auto) 1.45, Nucleated RBC % 0.2, Sodium 136, Potassium 3.5, Chloride 103, Carbon Dioxide 25.0, Anion Gap 8, BUN 36 H, Creatinine 5.47 H, Estim Creat Clear Calc 5.89, Est GFR (MDRD) Af Amer 10 L, Est GFR (MDRD) Non-Af 8 L, BUN/Creatinine Ratio 6.6 L, Glucose 152 H, Calcium 7.6 L, Random Vancomycin 19.8 H Micro: Microbiology 10/12/22 12:50 Fluid - Paracentesis (Abd) Gram Stain - Final Physical Exam Narrative GENERAL: Cooperative HEENT: Atraumatic; normocephalic EYES; Anicteric, Normal Conjunctiva NECK; supple, normal thyroid, RESPIRATORY: Diminished to auscultation with bilateral wheezes CARDIOVASCULAR: Regular S1 S2, GI: soft, normoactive bowel sounds, : No Renal angle tenderness; EXTREMITIES: 1+ bipedal edema MUSCULOSKELETAL: no muscle wasting NEURO: Awake; no lateralizing signs. SKIN: No Rash PSYCH; Flat affect Assessment & Plan Assessment/Plan (1) Septic shock: PLAN: Plan Patient is an 82-year-old lady with history of end-stage renal disease on peritoneal dialysis presented with syncopal episode found to be hypotensive with elevated lactic acid and leukocytosis 1. Septic shock ? Secondary to suspected peritonitis. Patient met criteria for septic shock with presence of a suspected infection with SIRS criteria? as well as evidence of endorgan dysfunction with lactic acid level greater than 2. Patient did receive IV fluid in the emergency department without much response decision was subsequently made to start patient on Levophed after central line had been placed with plan for patient to be admitted to the intensive care unit. As part of her management did obtain blood as well as cultures from her peritoneal fluid. Started on broad-spectrum antibiotic therapy with Zosyn and vancomycin ? 10/12/2022; patient remains on pressors ? 10/13/2022 plan is to wean off 2. Syncopal episode ? From hypotension from her suspected septic shock as well as possible hypovolemia from her peritoneal dialysis being resuscitated with IV fluid as discussed above 3. End-stage renal disease ? Patient is on peritoneal dialysis consult placed to Dr. Ovalle for dialysis orders. ? 10/12/2022 patient's family to run patient's dialysis 4. Diabetes mellitus type II -patient's oral hypoglycemics held. Placed on long acting insulin, Accu-Cheks a.c. and at bedtime and covered with sliding scale insulin 5. Anemia - Secondary to chronic disorder monitoring H&H and transfuse if patient becomes symptomatic or hemoglobin falls below 7 6. Dyslipidemia -Patient is on statin therapy, continued at home dose 7. Essential hypertension ? Patient antihypertensives held given her presentation low blood pressure 8. Hypothyroidism - Patient is on levothyroxine home dose continued 9. GERD ? On PPI 10. Hypokalemia ? Corrected per protocol repeat labs ordered in a.m. for monitoring 11. 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 Nonobstructive coronary artery disease ? Currently stable on recommended medications 13. Depression with anxiety ? Patient is on bupropion 14. Class II obesity with BMI of 39.1 - complicating care, Weight loss advised 15. DVT prophylaxis ? SC heparin Time time spent in the patient's overall evaluation,decision-making process, review of diagnostic data, adjustment of management, discussion with other providers, nursing nursing and ancillary staff involved in patient's care documentation 50 minutes Charges/Coding Visit Charges Inpatient E&M: 33551 [facility] Hosp L3
--- NOTE | 2022-10-13 07:34 | PCM.RX.CS ---
Consult Antibiotic Management Pharmacy has been consulted to manage selected antiobiotic: Vancomycin Type of Intervention Type of Consult: Follow-up Suspected Infection Suspected Infection: Sepsis Prior Doses of Antibiotics Prior Doses of Antibiotics Received/Current Regimen: received vanc 2000mg IV x1 on 10/11/22 at 19:55 Labs Labs: Sodium 136 mmol/L (136-145) 10/13/22 05:15 Potassium 3.5 mmol/L (3.5-5.1) 10/13/22 05:15 Chloride 103 mmol/L (98-107) 10/13/22 05:15 Carbon Dioxide 25.0 mmol/L (21.0-32.0) 10/13/22 05:15 Anion Gap 8 (5-15) 10/13/22 05:15 BUN 36 mg/dL (7-18) H 10/13/22 05:15 Creatinine 5.47 mg/dL (0.55-1.02) H 10/13/22 05:15 Est GFR (MDRD) Af Amer 10 mL/min (>60) L 10/13/22 05:15 Est GFR (MDRD) Non-Af 8 mL/min (>60) L 10/13/22 05:15 BUN/Creatinine Ratio 6.6 RATIO (10-20) L 10/13/22 05:15 Glucose 152 mg/dL (74-106) H 10/13/22 05:15 Random Vancomycin 19.8 ug/mL (0.0-15.0) H 10/13/22 05:15 Microbiology Microbiology: Microbiology 10/12/22 12:50 Fluid - Paracentesis (Abd) Gram Stain - Final Dosing Weight Weight used for dosin.1 kg Estimated Creatinine Clearance Estimated Creatinine Clearance: 8.8ml/min Goal Trough Goal Trough: 15-20 mcg/mL Pharmacy Plan for Drug Dosing Pharmacy Plan for Drug Dosing: The vanc random level drawn at 05:15 today (approx 33 hours after the 2000mg dose) was 19.8. Since this is <20, will give 1500mg IV x1 today based on the patient's weight, per [facility] dosing protocol. The patient is on peritoneal dialysis so will continue to dose as someone with CrCl < 20 mi/min and not on hemodialysis. Will repeat a vanc random level in approx 48 hours to determine further dosing. Pharmacy Service will continue to monitor and adjust dosing as required. Follow-Up Labs Follow-Up Labs: Trough: Vancomycin ((random)) Date/Time Labs Ordered Labs to be done on [date and time ordered]: 10/15/22 06:00
[2022-10-13] MEDS: Calcium Acetate 667 MG Capsule PO ×2 (08:21→17:50)
[2022-10-13] MEDS: Aspirin E.C. 81 MG Tablet PO (08:22)
[2022-10-13] MEDS: Cyanocobalamin 500 MCG Tablet PO (08:23)
[2022-10-13] MEDS: Insulin Glargine-YFGN 100 UNIT/ML Pen 8 UNIT SC (09:12)
[2022-10-13] MEDS: Heparin Injection (Vial) 5,000 UNIT/ML VIAL 5000 UNIT SC ×2 (09:22→20:00)
[2022-10-13] MEDS: Albuterol 2.5 MG/3 ML VIAL.NEB. INHALATION ×2 (09:31→20:51)
[2022-10-13] MEDS: 0.9% Saline Lock 10 ML Syringe IV ×7 (09:48→19:58)
[2022-10-13] MEDS: Ondansetron 4 MG/2 ML Vial IV (09:48)
--- NOTE | 2022-10-13 09:52 | CPS ---
Patient has upper airway wheezes, not relieved by Albuterol.
[2022-10-13 10:14] LABS: Bedside Glucose 93 mg/dL (74-106)
[2022-10-13] MEDS: Midodrine HCl 5 MG Tablet 10 MG PO ×2 (10:39→17:49)
[2022-10-13] MEDS: Pioglitazone Hydrochloride 30 MG Tablet PO (10:40)
[2022-10-13] MEDS: buPROPion 100 MG Tablet PO ×2 (10:40→19:59)
[2022-10-13] MEDS: Magnesium Chloride 64 MG Delay Rel.Tablet 128 MG PO (10:40)
[2022-10-13] MEDS: Pantoprazole Sodium 40 MG Tablet PO (10:40)
[2022-10-13] MEDS: Furosemide 100 MG/10 ML Vial 80 MG IV (11:30)
[2022-10-13 12:19] LABS: Bedside Glucose 72 mg/dL (74-106)
[2022-10-13 14:00] LABS: Hematocrit 26.1 % (37-47); Hemoglobin 8.4 g/dL (12.0-15.0)
[2022-10-13 15:06] LABS: Bedside Glucose 78 mg/dL (74-106)
[2022-10-13 16:25] LABS: Bedside Glucose 82 mg/dL (74-106)
--- NOTE | 2022-10-13 18:57 | PN.RENAL_ITS ---
Subjective Subjective Following for ESRD. The patient still remains on IV vasopressor on my visit. She does complain of more shortness of breath today. She does not ultrafilter at all with 1.5% dextrose with PD last night. There is more abdominal pain today. Objective Data Objective Data Vital Signs: Vital Signs Temp Pulse Resp BP Pulse Ox O2 Del Method O2 Flow Rate 97.8 F 70 17 97/38 L 99 Nasal Cannula 2 10/13/22 18:15 10/13/22 18:45 10/13/22 18:15 10/13/22 18:45 10/13/22 18:15 10/13/22 18:15 10/13/22 18:15 Oxygen Flow Rate (L/min) 2 Oxygen Delivery Method Nasal Cannula Weight: 102.1 kg Body Mass Index (BMI) 43.9 Intake & Output: Intake and Output for Last 24 Hours 10/11/22 10/12/22 10/13/22 23:59 23:59 23:59 Intake Total 3921.73 / 3959.23 2820.86 / 2820.86 1770.68 / 1770.68 Output Total 0 / 0 100 / 100 Balance 3921.73 / 3959.23 2820.86 / 2820.86 1670.68 / 1670.68 Lab / Micro Data 10/13/22 13:50 10/13/22 05:15 Labs: Laboratory Results - last 24 hr 10/12/22 12:50: Fluid Source THORACENTESIS, Fluid Color YELLOW, Fluid Appearance SL CLDY, Fluid WBC 3.383, Fluid RBC 2, Fluid Neutrophils 73, Fluid Lymphocytes 2, Fluid Monocytes 10, Fluid Other Cells 15, Fl Pathologist Comment May follow, Fluid Comment 2 SEE COMMENT 10/12/22 21:19: POC Glucose 133 H 10/13/22 05:15: WBC 12.8 H, RBC 2.53 L, Hgb 8.3 L, Hct 25.8 L, MCV 102.0 H, MCH 32.8 H, MCHC 32.2, RDW Std Deviation 62.4 H, RDW Coeff of Alanna 16.9 H, Plt Count 260, MPV 9.7, Immature Gran % (Auto) 1.200 H, Neut % (Auto) 81.1 H, Lymph % (Auto) 11.3 L, Kaufman % (Auto) 4.1, Eos % (Auto) 2.0, Baso % (Auto) 0.3, Absolute Neuts (auto) 10.4 H, Absolute Lymphs (auto) 1.45, Nucleated RBC % 0.2, Sodium 136, Potassium 3.5, Chloride 103, Carbon Dioxide 25.0, Anion Gap 8, BUN 36 H, Creatinine 5.47 H, Estim Creat Clear Calc 5.89, Est GFR (MDRD) Af Amer 10 L, Est GFR (MDRD) Non-Af 8 L, BUN/Creatinine Ratio 6.6 L, Glucose 152 H, Calcium 7.6 L, Random Vancomycin 19.8 H 10/13/22 09:19: POC Glucose 93 10/13/22 11:35: POC Glucose 72 L 10/13/22 13:50: Hgb 8.4 L, Hct 26.1 L 10/13/22 14:41: POC Glucose 78 10/13/22 16:05: POC Glucose 82 Micro: Microbiology 10/11/22 13:30 Blood Culture (Wb) - Venous Blood Culture - Preliminary No growth in 48 hours. 10/11/22 12:45 Blood Culture (Wb) - Arm Right Blood Culture - Preliminary No growth in 48 hours. 10/12/22 12:50 Fluid - Paracentesis (Abd) Gram Stain - Final 10/12/22 12:50 Fluid - Paracentesis (Abd) Body Fluid Culture - Preliminary Staphylococcus species Physical Exam Narrative General: Alert and oriented x3, NAD. HEENT: Normocephalic, atraumatic. Mucous membrane moist without erythema. PERRLA, EOMI. Hearing is intact. Neck: Supple, no JVD. Trachea is midline. No thyromegaly or lymphadenopathy. Cardiovascular: Normal S1, S2. No rubs, murmurs, or gallops. Respiratory: Lungs are clear to auscultation anteriorly. Abdomen: Normal bowel sounds, soft, tender to palpation with voluntary guarding. No rebound. Extremities: No clubbing or cyanosis. There is trace edema of the lower extremity. Assessment & Plan Assessment/Plan (1) ESRD on peritoneal dialysis: (2) Septic shock: (3) Peritonitis associated with peritoneal dialysis: PLAN: Plan Impression/Plan: The patient is a 82-year-old woman with past history of ESRD, type 2 diabetes mellitus, hypertension, CAD, heart failure with preserved ejection fraction, PAD, hypothyroidism, and hyperlipidemia. The patient presented to the hospital on 10/11/2022 with syncope and was diagnosed with circulatory shock requiring IV vasopressor and volume expansion. Nephrology is following for ESRD. ESRD. Continue CCPD tonight. The patient became more short of breath earlier today. She did not ultrafilter with using 1.5% dextrose peritoneal fluid last night. Therefore, we will use 2.5% dextrose tonight. Family was able to help with set up on her usual CCPD prescription. Reassess volume status, electrolyte, and acid-base status again tomorrow to determine the dextrose consultation for PD fluid for tomorrow. PD related peritonitis. PD effluent cell count was 3383 cells with 75% neutrophil on differential. The patient is growing Staphylococcus on PD effluent from 10/12/2022. Staphylococcus is yet to be speciated. However, she has been given vancomycin yesterday. Vancomycin level is 19.8 ug/mL today. IV vancomycin was redosed today. I will also check with [employer] tomorrow to see if there is any data from PD fluid culture that was sent prior to her admission. WBC is improving. WBC came down from 20.5 on 10/12/2022 down to 12.8 today. If she is not symptomatically improved tomorrow, I will recheck cell count of PD fluid. Circulatory shock. Could be a combination of hypovolemic and septic shock. The patient was trying to intentionally take more fluid off with dialysis prior to admission. She received fluid back with IV fluid yesterday. Suspect hypotension is now more likely from sepsis due to PD related peritonitis rather than volume depletion. She was given more IV vancomycin today based on random level. WBC has decreased over the last 24 hours. Will reassess tomorrow.
[2022-10-13 19:57] LABS: Hematocrit 24.8 % (37-47); Hemoglobin 7.8 g/dL (12.0-15.0)
[2022-10-13] MEDS: Atorvastatin Calcium 80 MG Tablet PO ×2 (19:58→19:59)
[2022-10-13] MEDS: Montelukast 10 MG Tablet PO (20:00)
[2022-10-13] MEDS: Latanoprost 0.005% 1 Bottle 1 DRP EACH EYE (20:00)
[2022-10-14] VITALS (55 sets, daily range): BP systolic 82–148; BP diastolic 30–88; PULSE 70–87; RESP 14–70; TEMP 36.6–37.1; O2SAT 90–100; BMI 46.8
[2022-10-14 02:07] LABS: Hematocrit 25.2 % (37-47); Hemoglobin 8.1 g/dL (12.0-15.0)
[2022-10-14 02:18] LABS: Anion Gap 10 (5-15); BUN 35 mg/dL (7-18); BUN/Creat Ratio 6.5 RATIO (10-20); Calcium,Total 7.7 mg/dL (8.5-10.1); Chloride 102 mmol/L (98-107); Creatinine, Serum 5.42 mg/dL (0.55-1.02); EST Glomerular Filtration Rate 8 mL/min (>60); Est Glom Filt Rate - Afr Amer 10 mL/min (>60); Estimated Creatinine Clearance 5.95 ml/min; Glucose 221 mg/dL (74-106); Potassium 3.3 mmol/L (3.5-5.1); Sodium Level 136 mmol/L (136-145)
[2022-10-14] MEDS: Levothyroxine 137 MCG Tablet PO (05:42)
--- NOTE | 2022-10-14 07:14 | PCM.PN.INT ---
Assessment & Plan Assessment/Plan (1) Septic shock: PLAN: Plan RECOMMENDATIONS: 1. Consider infectious disease consult for bacterial peritonitis 2. Continue vasopressor support to maintain mean arterial pressure at or above 65 mmHg. 3. Dialysis support per nephrology recommendations. ?Transition to hemodialysis, tunneled versus temporary HD cath 4. Continue appropriate DVT prophylaxis. 5. Continue Accu-Cheks and sliding scale insulin. IMPRESSIONS: 1. Septic shock secondary to bacterial peritonitis Peritoneal cultures are now showing Staph aureus. This appears to be a repeat infection from July. Patient was treated with 14 days of vancomycin at that time. Patient has not had very good volume removal with peritoneal dialysis in the setting. We will have to discuss with nephrology on possible transition to hemodialysis versus transfer for peritoneal support. Could consider infectious disease consult as patient will likely require protracted antibiotics. Plan to continue vasopressor support to maintain mean arterial pressure at or above 65 mmHg. 2. Syncope Clinical suspicion that this was secondary to decreased intravascular volume secondary to problem #1. Patient does have a upper airway wheeze at this time, but this is likely secondary to fluid overload. Patient does appear to have some anasarca at this time. 3. History of chronic kidney disease on peritoneal dialysis Nephrology is following to assist with medical management. 4. Morbid obesity/hyperlipidemia/hypertension/hypothyroidism/diabetes mellitus Complicates care, management, recovery and prognosis. Continue supportive measures as noted above. Continue Accu-Cheks and sliding scale insulin coverage. TIME: 40 minutes of critical care time, independent of procedures, was spent addressing the patient's septic shock, syncope, review of all data and collaboration with the care team. Subjective Subjective Patient did okay overnight. Peritoneal dialysis continues to have minimal volume removal. Patient did have significant constipation and has had nausea with some emesis. No aspirations been noted. Patient has been tolerating minimal nasal cannula oxygen. Patient subjectively feels only slight improvement. Lasix was not helpful overnight. Did discuss with patient's daughter at the bedside about the possible need for hemodialysis. She had reported some concern with this approach as the patient has refused hemodialysis in the past. Patient's daughter reports that the patient was diagnosed with Staph aureus peritonitis in July and the family has thought that this has been present despite 14 days of vancomycin and negative cultures thereafter. Objective Data Objective Data Vital Signs: Vital Signs Temp Pulse Resp BP Pulse Ox O2 Del Method O2 Flow Rate 36.7 C 70 20 H 120/61 100 Nasal Cannula 2 10/14/22 04:15 10/14/22 04:15 10/14/22 04:15 10/14/22 04:10/14/22 04:10/14/22 04:10/14/22 04:15 FiO2 2 10/14/22 01:00 Oxygen Flow Rate (L/min) 2 Oxygen Delivery Method Nasal Cannula Weight: 108.8 kg Body Mass Index (BMI) 46.8 Intake & Output: Intake and Output for Last 24 Hours 10/12/22 10/13/22 10/14/22 23:59 23:59 23:59 Intake Total 2820.86 / 2820.86 1978.68 / 1979.63 73.98 / 73.98 Output Total 0 / 0 100 / 100 0 / 0 Balance 2820.86 / 2820.86 1878.68 / 1879.63 73.98 / 73.98 Lab / Micro Data Attestation: I reviewed the patient's lab results. 10/14/22 01:45 10/14/22 01:45 Labs: Laboratory Results - last 24 hr 10/12/22 12:50: Fluid Source THORACENTESIS, Fluid Color YELLOW, Fluid Appearance SL CLDY, Fluid WBC 3.383, Fluid RBC 2, Fluid Neutrophils 73, Fluid Lymphocytes 2, Fluid Monocytes 10, Fluid Other Cells 15, Fl Pathologist Comment May follow, Fluid Comment 2 SEE COMMENT 10/13/22 09:19: POC Glucose 93 10/13/22 11:35: POC Glucose 72 L 10/13/22 13:50: Hgb 8.4 L, Hct 26.1 L 10/13/22 14:41: POC Glucose 78 10/13/22 16:05: POC Glucose 82 10/13/22 19:45: Hgb 7.8 L, Hct 24.8 L 10/14/22 01:45: Hgb 8.1 L, Hct 25.2 L, Sodium 136, Potassium 3.3 L, Chloride 102, Carbon Dioxide 24.0, Anion Gap 10, BUN 35 H, Creatinine 5.42 H, Estim Creat Clear Calc 5.95, Est GFR (MDRD) Af Amer 10 L, Est GFR (MDRD) Non-Af 8 L, BUN/Creatinine Ratio 6.5 L, Glucose 221 H, Calcium 7.7 L Micro: Microbiology 10/11/22 13:30 Blood Culture (Wb) - Venous Blood Culture - Preliminary No growth in 48 hours. 10/11/22 12:45 Blood Culture (Wb) - Arm Right Blood Culture - Preliminary No growth in 48 hours. 10/12/22 12:50 Fluid - Paracentesis (Abd) Gram Stain - Final 10/12/22 12:50 Fluid - Paracentesis (Abd) Body Fluid Culture - Preliminary Staphylococcus species Rhythm Strip Ectopy: - (Majority paced) Physical Exam Const alert and no apparent distress Constitutional Narrative: Anasarca General Appearance: cooperative HEENT normocephalic, head/scalp atraumatic and moist oral mucous membranes HEENT Narrative: Crowded posterior pharynx. Significant upper airway wheeze Eyes PERRL, EOMs intact bilaterally and conjunctivae normal Neck supple General: trachea midline and CVC in place Chest inspection of chest normal Resp normal respiratory effort Auscultation: diminished lung sounds; Negative for rales, rhonchi or wheezes Cardio regular rate, regular rhythm, no murmurs, no rub and no gallops GI normal to inspection, nondistended, normoactive bowel sounds Extremity General Extremity: edema; Negative for clubbing Skin no rashes or lesions noted Neuro CN's II-XII intact bilaterally, moves all extremities and no focal motor deficits Psych cooperative and affect normal Charges/Coding Procedures Hospitalists Procedures: 33069 Critial Care 1st Hr
[2022-10-14] MEDS: Budesonide Respules 0.5 MG/2 ML AMPUL.NEB. INHALATION ×2 (07:31→18:54)
[2022-10-14] MEDS: Ipratropium 0.5 MG/2.5 ML SOLUTION INHALATION ×3 (07:31→18:54)
[2022-10-14] MEDS: buPROPion 100 MG Tablet PO (07:55)
[2022-10-14] MEDS: Midodrine HCl 5 MG Tablet 10 MG PO ×3 (07:55→16:34)
[2022-10-14] MEDS: Ergocalciferol 1.25 MG (50, 000 UNIT) Capsule PO (07:55)
[2022-10-14] MEDS: Calcium Acetate 667 MG Capsule PO ×3 (07:56→16:34)
[2022-10-14] MEDS: Pioglitazone Hydrochloride 30 MG Tablet PO (07:56)
[2022-10-14] MEDS: Magnesium Chloride 64 MG Delay Rel.Tablet 128 MG PO (07:56)
[2022-10-14] MEDS: Cyanocobalamin 500 MCG Tablet PO (07:56)
[2022-10-14] MEDS: Aspirin E.C. 81 MG Tablet PO (07:57)
[2022-10-14] MEDS: Potassium Chloride Oral Tablet 20 MEQ 40 MEQ PO (07:57)
[2022-10-14] MEDS: Insulin Glargine-YFGN 100 UNIT/ML Pen 14 UNIT SC (08:05)
[2022-10-14] MEDS: Potassium Chloride Oral Tablet 20 MEQ PO (08:09)
[2022-10-14 08:29] LABS: Bedside Glucose 140 mg/dL (74-106)
--- NOTE | 2022-10-14 08:56 | CASEMGMT ---
Addendum entered by Libertad Cornejo 10/14/22 09:18: Social Work SW participated in ICU rounds. As per physician, pt may be switched to HD from PD. If pt does continue w/PD, she may get transferred. Also in the past the pt has not wanted HD. SW called daughter to let her know SW available to assist w/discharge planning when appropriate. SW inquired w/daughter if she had any place in mind yet for rehab. Daughter states pt went to [facility] in the past, however pt did not have a good experience there. Daughter Hema states that [facility] was the only place that would take a pt on PD last year, and daughter ended up still going over to [facility] two times per day to do the PD, as the nursing staff was not sure of themselves to do it. SW explained we will continue to follow, it's too soon to make a referral. Once we have a better idea of what is going on w/pt from nephrology, we can look further into rehab options. Daughter states understanding. Plan: TBD, likely SNF if pt does not get transferred, will make referrals when appropriate. YULIA Mann Original Note: Social Work SW spoke w/pt this morning regarding where she may want to go for rehab. Pt deferred to daughter. SW will call daughter after rounds today. YULIA Mann
[2022-10-14] MEDS: Heparin Injection (Vial) 5,000 UNIT/ML VIAL 5000 UNIT SC ×3 (09:14→21:06)
--- NOTE | 2022-10-14 09:42 | PCM.PN.HOSP ---
Reason for Visit Reason for Visit: Syncope Subjective Subjective Mrs. Rodriguez is an 82-year-old white female who presents emergency department was prehospital on 10/11/2022 after suffering a syncopal episode at home. She suffers from end-stage renal disease and is on peritoneal dialysis at home. Extra fluid was in the process of being removed due to increasing lower extremity swelling at home. It sounded as if the patient had progressively been getting weak and had a fall 2 days prior to admission. Patient denied fevers but did admit to chills. She was treated for staph in her peritoneal fluid remotely and family had asked repetitively to obtain repeat cultures at [facility] but they denied the need. On presentation patient was found to be hypotensive and had a systolic pressure of 60. Her lactic acid was elevated and she had a marked leukocytosis. She was given IV fluids for resuscitation without much improvement. Cultures were obtained and she was started on vasopressors along with broad-spectrum antibiotics in the emergency department. She was subsequently admitted to the intensive care for further management. Since admission she has been on Zosyn and vancomycin. Nephrology has been consulted to assist with her peritoneal dialysis which she has continued. Her blood cultures are negative at 48 hours however her peritoneal fluid is growing a staph species with anaerobic culture still pending. She states she is having abdominal pain, nausea, with intermittent vomiting. She states she has been having coughing after eating frequently over the past several months and is to get a scope as an outpatient but has not been able to do so as of yet. It sounds as if she has had speech therapy but it is unclear whether she had any other further diagnostic testing including a barium swallow or an upper GI. She still remains on 2 to 3 mcg/min of Levophed. Vasopressin has been discontinued. Objective Data Objective Data Vital Signs: Vital Signs Temp Pulse Resp BP Pulse Ox O2 Del Method O2 Flow Rate 98.0 F 70 16 110/42 L 94 Nasal Cannula 2 10/14/22 04:15 10/14/22 09:00 10/14/22 09:00 10/14/22 09:00 10/14/22 09:00 10/14/22 09:00 10/14/22 09:00 FiO2 2 10/14/22 01:00 Oxygen Flow Rate (L/min) 2 Oxygen Delivery Method Nasal Cannula Weight: 108.8 kg Body Mass Index (BMI) 46.8 Intake & Output: Intake and Output for Last 24 Hours 10/12/22 10/13/22 10/14/22 23:59 23:59 23:59 Intake Total 2820.86 / 2820.86 1978.68 / 1979.63 74.93 / 74.93 Output Total 0 / 0 100 / 100 280 / 280 Balance 2820.86 / 2820.86 1878.68 / 1879.63 -205.07 / -205.07 Lab / Micro Data 10/14/22 01:45 10/14/22 01:45 Labs: Laboratory Results - last 24 hr 10/12/22 12:50: Fluid Source THORACENTESIS, Fluid Color YELLOW, Fluid Appearance SL CLDY, Fluid WBC 3.383, Fluid RBC 2, Fluid Neutrophils 73, Fluid Lymphocytes 2, Fluid Monocytes 10, Fluid Other Cells 15, Fl Pathologist Comment May follow, Fluid Comment 2 SEE COMMENT 10/13/22 09:19: POC Glucose 93 10/13/22 11:35: POC Glucose 72 L 10/13/22 13:50: Hgb 8.4 L, Hct 26.1 L 10/13/22 14:41: POC Glucose 78 10/13/22 16:05: POC Glucose 82 10/13/22 19:45: Hgb 7.8 L, Hct 24.8 L 10/14/22 01:45: Hgb 8.1 L, Hct 25.2 L, Sodium 136, Potassium 3.3 L, Chloride 102, Carbon Dioxide 24.0, Anion Gap 10, BUN 35 H, Creatinine 5.42 H, Estim Creat Clear Calc 5.95, Est GFR (MDRD) Af Amer 10 L, Est GFR (MDRD) Non-Af 8 L, BUN/Creatinine Ratio 6.5 L, Glucose 221 H, Calcium 7.7 L 10/14/22 08:02: POC Glucose 140 H Micro: Microbiology 10/11/22 13:30 Blood Culture (Wb) - Venous Blood Culture - Preliminary No growth in 48 hours. 10/11/22 12:45 Blood Culture (Wb) - Arm Right Blood Culture - Preliminary No growth in 48 hours. 10/12/22 12:50 Fluid - Paracentesis (Abd) Gram Stain - Final 10/12/22 12:50 Fluid - Paracentesis (Abd) Body Fluid Culture - Preliminary Staphylococcus species Rhythm Strip Ectopy: - (Majority paced) Physical Exam Const alert, oriented x3 and well nourished; Negative for average body habitus or healthy appearing Constitutional Narrative: Morbidly obese, acutely and chronically ill-appearing white female, sitting up in bed, appears somewhat uncomfortable but nontoxic at this point, no current distress HEENT head/scalp atraumatic HEENT Narrative: Mallampati is 3, no thrush Head and Scalp: normocephalic Neck Neck Narrative: Right triple-lumen IJ in place Resp normal respiratory effort, no retractions, no use of accessory muscles and clear to auscultation bilaterally Resp Narrative: Intermittent cough after drinking fluids Auscultation: Negative for rales, rhonchi or wheezes Cardio regular rate, regular rhythm, S1 normal heart sound, S2 normal heart sound, no murmurs, no rub, no gallops and no clicks GI normal to inspection, nondistended, normoactive bowel sounds and soft to palpation GI Narrative: Mild diffuse tenderness Extremity Extremity Narrative: Scattered ecchymosis bilateral lower extremities with trace pitting edema, no cyanosis or clubbing Neuro oriented x3, CN's II-XII intact bilaterally, moves all extremities and no focal motor deficits Neuro Narrative: Significant generalized weakness and with no focal deficits Speech: speech normal Psych Psych Narrative: Affect is flat and mood seems depressed however appropriate for the current medical situation Assessment & Plan Assessment/Plan (1) Septic shock: (2) Peritonitis associated with peritoneal dialysis: (3) Hypokalemia: (4) Hyperglycemia: (5) Dysphagia: PLAN: Plan Septic shock secondary to peritoneal dialysis catheter induced bacterial peritonitis -Cultures currently showing staph species -Blood cultures negative -We will continue vancomycin and Zosyn for now and await final identification and sensitivities prior to narrowing antibiotics -Previously had been on Levophed and vasopressin -Vasopressin discontinued and patient still remains on Levophed at 2-3 mics per hour -Wean as able to keep MAP greater than 65 -Also on midodrine -ID consultation -Nephro is following -Critical care medicine is following Hypokalemia -Potassium replacement -Repeat lab in a.m. -Check a.m. magnesium level Dysphagia -Speech therapy consult -Patient indicates she feels food is getting caught in her esophagus -Check esophagram/barium swallow -May need GI input if imaging is abnormal End-stage renal disease -PD dependent -Nephrology is following -peritoneal fluid growing staph species -Continue antibiotics -? If patient will need some hemodialysis--> will discuss further with nephrology Hypothyroidism -Continue Synthroid CAD/hypertension/hyperlipidemia -Continue aspirin -Continue statin -Hold Coreg due to hypotension GERD -Continue PPI DM-2 -Continue sliding scale -Continue Lantus but increase from 8 units to 14 units daily -Continue sliding scale insulin -Continue Accu-Cheks -Hold Actos while patient hospitalized History of asthma -Currently stable -Continue home Singulair -2 L nasal cannula with oxygen saturations at 94% -Continue nebs as needed -Patient will likely benefit from diuresis once blood pressure is able to tolerate fluid removal Glaucoma -Continue eyedrops Debility -Continue PT/OT -Anticipate possible placement being required at discharge Depression/anxiety -Continue home BuSpar -Would recommend follow-up with outpatient PCP for consideration of antidepressant as patient has been very tearful during her hospitalization DVT prophylaxis -Continue heparin SQ but increase to 3 times daily from twice daily -Continue SCDs CODE STATUS -DNR CCA without intubation Charges/Coding Visit Charges Inpatient E&M: 05116 Subs Hosp L2
--- NOTE | 2022-10-14 09:56 | CASEMGMT ---
BRENDA INFANTE NOTE: Insurance review for hospitals In-network with??[employer] PPO Insurance if transfer is recommended is as follows: [facility], [place], [facility], [facility], [facility], [facility] [place], [place] and . Yue LIGHTN RN CM
--- NOTE | 2022-10-14 11:44 | CON.PCM.GI_ITS ---
HPI Consult Data Date of Consult: 10/14/22 HPI Narrative Reason for Consultation: dysphagia HPI Narrative: Chalino WHELAN, is a 82 F who presents after a syncopal episode at home. Patient has significant past medical history including diabetes mellitus type 2, end-stage renal disease on peritoneal dialysis at home. The patient's daughter who provided part of the history he had taken extra fluid off given patient experiencing bilateral lower extremity swelling. She apparently fell and injured her knee 2 days prior to her admission and did experience a syncopal episode on the morning of her admission. When she presented to the emergency department was found to be hypotensive with systolic blood pressure in the 60s. She was also found to have elevated lactic acid level as well as leukocytosis. She was resuscitated with IV fluid without much improvement decision was made in the emergency department to start patient on broad-spectrum antibiotic therapy for suspected septic shock secondary to suspected SBP. She had a documented temperature of 96.2 ?F. She was notably hypotensive. Initial laboratory evaluation revealed a white blood cell count of 14,000. Chemistry profile was notable for a sodium of 133, potassium of 3.0 and creatinine of 5.75. Lactate was elevated at 2.2. Troponin was unremarkable. Chest x-ray demonstrated mild cardiomegaly and blunting of left costophrenic angle. CT head revealed chronic involutional changes of the brain. The patient did receive supplemental IV fluid hydration and was started on empiric broad- spectrum antimicrobials. Ultimately, the patient had to be initiated on vasopressor support due to fluid refractory hypotension. She was admitted to the medical intensive care unit for further management. She is currently being followed by infectious disease, critical care service and hospitalist service. I was called to see her secondary to worsening esophageal dysphagia and abdominal pain. She is having progressive esophageal dysphagia with solids greater than liquids. She does use an inhaler. She does have of diabetes. She has had attics recently. Blood thinner she takes aspirin 81 mg. [facility] Medical History Acute respiratory failure Albuminuria Asthma Bilateral carotid artery stenosis Chronic anemia Chronic diastolic CHF (congestive heart failure) Chronic kidney disease Esophageal dysphagia ESRD on peritoneal dialysis Essential hypertension GERD (gastroesophageal reflux disease) Glaucoma Hyperlipidemia Hyperparathyroidism, secondary renal Hypothyroidism Leg wound, right Lichenification and lichen simplex chronicus Major depressive disorder Methicillin resistant Staphylococcus epidermidis infection Neurodermatitis Non-proliferative diabetic retinopathy, both eyes Nonobstructive atherosclerosis of coronary artery Normocytic anemia Nummular eczema Obesity Open wound of right forearm 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) Recurrent syncope (03/28/21) Severe protein-calorie malnutrition Skin tear of right forearm without complication Skin tear of right lower leg without complication Stage 3 chronic kidney disease Stenosis of left carotid artery Torsades de pointes (03/28/21) Transient visual loss, right eye (11/2020) Type II diabetes mellitus Ventricular tachycardia Vitamin B 12 deficiency Home Medications atorvastatin 80 mg tablet 80 mg PO QHS CHOLESTEROL 10/12/18 [History Last Taken 10/10/22] omeprazole 40 mg capsule,delayed release 40 mg PO DAILY ACID REFLUX 10/12/18 [History Last Taken 10/10/22] albuterol sulfate 90 mcg/actuation aerosol inhaler 2 puff inhalation Q4H PRN SHORTNESS OF BREATH 10/13/18 [History Last Taken Unknown] montelukast 10 mg tablet 10 mg PO QHS ALLERGIES 10/26/19 [History Last Taken 10/10/22] acetaminophen 325 mg tablet 650 mg PO Q4H PRN pain/fever 05/10/21 [History Last Taken Unknown] ergocalciferol (vitamin D2) 50,000 unit tablet 50,000 unit PO MO SUPPLEMENT 05/10/21 [History Last Taken 10/07/22] ipratropium 0.5 mg-albuterol 3 mg (2.5 mg base)/3 mL nebulization soln 3 ml inhalation Q6H PRN SHORTNESS OF BREATH 05/10/21 [History Last Taken Unknown] fluticasone propionate 110 mcg/actuation HFA aerosol inhaler (Flovent HFA) 1 puff inhalation BID PRN Wheezing 02/08/22 [History Last Taken Unknown] latanoprost 0.005 % eye drops 1 drp ophthalmic (eye) ONCE GLAUCOMA 02/08/22 [History Last Taken Unknown] meclizine 12.5 mg tablet 12.5 mg PO BID VERTIGO 02/08/22 [History Last Taken 10/10/22] tiotropium bromide 2.5 mcg/actuation mist for inhalation (Spiriva Respimat) 2 puff inhalation QAM PRN Wheezing 02/08/22 [History Last Taken Unknown] bupropion HCl 100 mg tablet 100 mg PO BID DEPRESSION 08/16/22 [History Last Taken 10/10/22] insulin glargine 100 unit/mL (3 mL) subcutaneous pen (Lantus Solostar U-100 Insulin) 8 unit subcut DAILY BLOOD SUGARS 08/16/22 [History Last Taken 10/10/22] levothyroxine 137 mcg tablet 137 mcg PO MOTUWETH 08/16/22 [History Last Taken 10/10/22] potassium chloride 20 mEq tablet,extended release 20 meq PO MOFR SUPPLEMENT 08/16/22 [History Last Taken 10/07/22] aspirin 81 mg tablet,delayed release (Adult Aspirin Regimen) 81 mg PO DAILY HEART HEALTH 10/11/22 [History Last Taken 10/10/22] calcitriol 0.25 mcg capsule 0.25 mcg PO WEFR 10/11/22 [History Last Taken 10/09/22] calcium acetate(phosphat bind) 667 mg capsule 667 mg PO TID 10/11/22 [History Last Taken Unknown] carvedilol 12.5 mg tablet 12.5 mg PO DAILY HEART 10/11/22 [History Last Taken 10/10/22] levothyroxine 137 mcg capsule 205.5 mcg PO SUFRSA THYROID 10/11/22 [History Last Taken 10/06/22] magnesium oxide 400 mg PO DAILY SUPPLEMENT 10/11/22 [History Last Taken 10/10/22] mecobalamin (vitamin B12) 500 mcg chewable tablet 500 mcg PO DAILY SUPPLEMENT 10/11/22 [History Last Taken 10/10/22] pioglitazone 30 mg tablet 30 mg PO DAILY DIABETES 10/11/22 [History Last Taken 10/10/22] Allergy/AdvReac Type Severity Reaction Status Date / Time metformin [From Glucophage] Allergy Severe renal Verified 10/11/22 11:40 failure adhesive Allergy Intermediate blisters Verified 10/11/22 11:40 oxycodone Allergy Intermediate hallucinati Verified 10/11/22 11:40 ons tramadol Allergy Intermediate Vomiting Verified 10/11/22 11:40 ERIC Inhibitors AdvReac Intermediate cough Verified 10/11/22 11:40 buspirone [From BuSpar] AdvReac Hallucinati Verified 10/11/22 11:40 ons Family History Father Heart disease Hypertension Suicide Mother Hypertension CVA (cerebral vascular accident) COPD (chronic obstructive pulmonary disease) CAD (coronary artery disease) Surgical History History of bilateral knee replacement (1989) History of breast biopsy History of implantable cardiac defibrillator (ICD) (04/02/21) History of left heart catheterization (03/28/21) History of open reduction and internal fixation (ORIF) procedure History of right cataract extraction (10/03/11) History of temporary cardiac pacemaker treatment (03/28/21) History of tonsillectomy Social History household members: none Smoking Status: Never smoker alcohol intake: never substance use type: does not use caffeine: Yes Type: coffee Number of servings: 2 ROS Constitutional Constitutional: Reports systems reviewed and no addt'l complaints, except as documented Eyes Eyes: Reports systems reviewed and no addt'l complaints, except as documented ENT HEENT: Reports systems reviewed and no addt'l complaints, except as documented Cardiovascular Cardiovascular: Reports systems reviewed and no addt'l complaints, except as documented Respiratory/Chest Respiratory/Chest: Reports systems reviewed and no addt'l complaints, except as documented Gastrointestinal Gastrointestinal: Reports systems reviewed and no addt'l complaints, except as documented Genitourinary Genitourinary: Reports systems reviewed and no addt'l complaints, except as documented Musculoskeletal Musculoskeletal: Reports systems reviewed and no addt'l complaints, except as documented Integumentary Integumentary: Reports systems reviewed and no addt'l complaints, except as documented Neurologic Neurologic: Reports systems reviewed and no addt'l complaints, except as documented Psychiatric Psychiatric: Reports systems reviewed and no addt'l complaints, except as documented Endocrine Endocrinology: Reports systems reviewed and no addt'l complaints, except as documented Hematologic/Lymphatic Hematologic/Lymphatic: Reports systems reviewed and no addt'l complaints, except as documented Allergic/Immunologic Allergic/Immunologic: Reports systems reviewed and no addt'l complaints, except as documented Physical Exam Narrative General: Alert and oriented x3, NAD. Neck: Supple, no JVD. Cardiovascular: Normal S1, S2. No rubs, murmurs, or gallops. Respiratory: Lungs are diminished breath sounds posterior bases Abdomen: Normal bowel sounds, soft, slightly tender to palpation. Examined exit site from around PD catheter/dressing, no redness, no drainage, no crusting Extremities: pitting edema b/l legs and thighs. edema to lower abdomen Lab / Micro Data 10/15/22 03:05 10/15/22 03:05 Labs: Laboratory Results - last 24 hr 10/14/22 11:33: POC Glucose 134 H 10/14/22 16:33: POC Glucose 74 10/14/22 20:50: POC Glucose 143 H 10/15/22 03:05: WBC 7.5, RBC 2.34 L, Hgb 7.6 L, Hct 24.0 L, MCV 102.6 H, MCH 32.5 H, MCHC 31.7 L, RDW Std Deviation 64.2 H, RDW Coeff of Alanna 17.4 H, Plt Count 215, MPV 9.4, Immature Gran % (Auto) 2.700 H, Neut % (Auto) 64.9, Lymph % (Auto) 21.0, [place] % (Auto) 6.3, Eos % (Auto) 4.7, Baso % (Auto) 0.4, Absolute Neuts (auto) 4.9, Absolute Lymphs (auto) 1.57, Nucleated RBC % 0, Sodium 138, Potassium 3.5, Chloride 105, Carbon Dioxide 28.0, Anion Gap 5, BUN 32 H, Creatinine 5.21 H, Estim Creat Clear Calc 6.19, Est GFR (MDRD) Af Amer 10 L, Est GFR (MDRD) Non-Af 8 L, BUN/Creatinine Ratio 6.1 L, Glucose 182 H, Calcium 7.4 L, Phosphorus 3.5, Magnesium 1.6, Total Bilirubin 0.30, AST 27, ALT 20, Alkaline Phosphatase 73, Total Protein 4.8 L, Albumin 1.1 L, Globulin 3.7, Albumin/Globulin Ratio 0.3 L, Random Vancomycin 27.8 H 10/15/22 11:15: POC Glucose 87 Micro: Microbiology 10/12/22 12:50 Fluid - Paracentesis (Abd) Gram Stain - Final 10/12/22 12:50 Fluid - Paracentesis (Abd) Body Fluid Culture - Final Coag Negative Staph 10/12/22 12:50 Fluid - Paracentesis (Abd) Anaerobic Culture - Preliminary Checking for anaerobes, further studies to follow. Rhythm Strip Ectopy: - (Majority paced) Assessment & Plan Assessment/Plan (1) Dysphagia: PLAN: She will undergo an upper endoscopy to evaluate the GI tract. Differential diagnosis does include esophageal candidiasis, eosinophilic esophagitis, esophageal web, esophageal stricture secondary to erosive esophagitis of bile induced gastritis in the setting of possible hiatal hernia. There is possible dilation that could be done if this is a mechanical problem. This is less likely an esophageal motor disorder. Although that is on the differential diagnosis and patient with diabetes. She was explained alternatives, risk, benefits include not withstanding bleeding, infection, sepsis, perforation, need for emergent surgery . She will have an ASA of 3. Charges/Coding Visit Charges Inpatient E&M: 66437 Init Hosp L3
[2022-10-14 11:51] LABS: Bedside Glucose 134 mg/dL (74-106)
--- NOTE | 2022-10-14 12:11 | PN.RENAL_ITS ---
Subjective Subjective Resting in bed. No overnight events. Complains of feeling full of fluid and states still having some abdominal pain. Denies any shortness of breath. Objective Data Objective Data Vital Signs: Vital Signs Temp Pulse Resp BP Pulse Ox O2 Del Method O2 Flow Rate 98.0 F 70 18 121/33 H 100 Nasal Cannula 2 10/14/22 04:15 10/14/22 10:00 10/14/22 10:00 10/14/22 10:00 10/14/22 10:00 10/14/22 11:26 10/14/22 11:26 FiO2 2 10/14/22 01:00 Oxygen Flow Rate (L/min) 2 Oxygen Delivery Method Nasal Cannula Weight: 108.8 kg Body Mass Index (BMI) 46.8 Intake & Output: Intake and Output for Last 24 Hours 10/12/22 10/13/22 10/14/22 23:59 23:59 23:59 Intake Total 2820.86 / 2820.86 1978.68 / 1979.63 178.73 / 178.73 Output Total 0 / 0 100 / 100 280 / 280 Balance 2820.86 / 2820.86 1878.68 / 1879.63 -101.27 / -101.27 Lab / Micro Data 10/14/22 01:45 10/14/22 01:45 Labs: Laboratory Results - last 24 hr 10/13/22 11:35: POC Glucose 72 L 10/13/22 13:50: Hgb 8.4 L, Hct 26.1 L 10/13/22 14:41: POC Glucose 78 10/13/22 16:05: POC Glucose 82 10/13/22 19:45: Hgb 7.8 L, Hct 24.8 L 10/14/22 01:45: Hgb 8.1 L, Hct 25.2 L, Sodium 136, Potassium 3.3 L, Chloride 102, Carbon Dioxide 24.0, Anion Gap 10, BUN 35 H, Creatinine 5.42 H, Estim Creat Clear Calc 5.95, Est GFR (MDRD) Af Amer 10 L, Est GFR (MDRD) Non-Af 8 L, BUN/Creatinine Ratio 6.5 L, Glucose 221 H, Calcium 7.7 L 10/14/22 08:02: POC Glucose 140 H 10/14/22 11:33: POC Glucose 134 H Micro: Microbiology 10/11/22 13:30 Blood Culture (Wb) - Venous Blood Culture - Preliminary No growth in 48 hours. 10/11/22 12:45 Blood Culture (Wb) - Arm Right Blood Culture - Preliminary No growth in 48 hours. 10/12/22 12:50 Fluid - Paracentesis (Abd) Gram Stain - Final 10/12/22 12:50 Fluid - Paracentesis (Abd) Body Fluid Culture - Preliminary Staphylococcus species Rhythm Strip Ectopy: - (Majority paced) Physical Exam Narrative General: Alert and oriented x3, NAD. Neck: Supple, no JVD. Cardiovascular: Normal S1, S2. No rubs, murmurs, or gallops. Respiratory: Lungs are diminished breath sounds posterior bases Abdomen: Normal bowel sounds, soft, tender to palpation. Examined exit site from around PD catheter, no redness, no drainage, no crusting Extremities: pitting edema b/l legs and thighs. edema to lower abdomen Assessment & Plan Assessment/Plan (1) ESRD on peritoneal dialysis: (2) Septic shock: (3) Peritonitis associated with peritoneal dialysis: PLAN: Plan Impression/Plan: The patient is a 82-year-old woman with past history of ESRD, type 2 diabetes mellitus, hypertension, CAD, heart failure with preserved ejection fraction, PAD, hypothyroidism, and hyperlipidemia. The patient presented to the hospital on 10/11/2022 with syncope and was diagnosed with circulatory shock requiring IV vasopressor and volume expansion. - ESRD on PD support; Continue CCPD tonight using all 2.5% dianeal. There was no UF last evening but in fact +200ml Family was able to help with set up on her usual CCPD prescription. - PD related peritonitis. PD effluent cell count was 3383 WBC with 75% neutrophil on differential. Staphylococcus on PD effluent from 10/12/2022; blood cultures so far negative to date. Patient is on vancomycin and Zosyn. WBC came down from 20.5 on 10/12/2022 down to 12.8 yesterday. Labs ordered for morning. And has been afebrile for at least last 48 hours. There has been no recent PD fluid culture or cell count sent from kidney center. About 2 to 3 months ago patient was treated with Antibiotics for culture- negative peritonitis. -septic shock; Could be a combination of hypovolemic and septic shock. The patient was trying to intentionally take more fluid off with dialysis prior to admission. She received fluid back with IV fluids on admission. Ok to keep off IVF at this time Suspect hypotension is now more likely from sepsis due to PD related peritonitis rather than volume depletion. Blood pressures have improved, on low-dose Levophed but patient is now off vasopressin. Patient is on midodrine. We will plan for PD tonight using 2.5% dianeal. We will repeat cell count and culture. discussed with patient and her daughter, Lydia (via phone) that patient will likely need transitioned to hemodialysis as she is becoming hypervolemic. Hemodialysis will likely be in-center as well. In past patient did not agree to in-center HD but today she is in agreement. Depending upon cx results patient may need temporary HD catheter and once infection cleared transition to tunneled HD catheter.
[2022-10-14] MEDS: Acetaminophen 325 MG Tablet 650 MG PO (13:39)
--- NOTE | 2022-10-14 14:16 | CON.PCM.ID_ITS ---
Assessment & Plan Assessment/Plan (1) Peritonitis associated with peritoneal dialysis: (2) Septic shock: PLAN: due to peritonitis. Fluid with staph so far, starting to feel better. On vanc/zosyn, repeat fluid testing planned. Need for PD catheter removal will depend on final cx data and clinical progress. Will follow, thank you HPI Consult Data Date of Consult: 10/14/22 HPI Narrative Reason for Consultation: peritonitis HPI Narrative: Chalino WHELAN, is a 82 F with ESRD, PD at home, presented 10/11 with synope at home. Had some chills, weakness, not feeling well. Had associated severe diffuse abd pain, some nausea/emesis. No issues with PD cath. Admitted to icu, has been on vanc/zosyn. Abd fluid sent for testing, feeling better today. Full ROS performed and neg except as noted above. [facility] Medical History Acute respiratory failure Albuminuria Asthma Bilateral carotid artery stenosis Chronic anemia Chronic diastolic CHF (congestive heart failure) Chronic kidney disease Esophageal dysphagia ESRD on peritoneal dialysis Essential hypertension GERD (gastroesophageal reflux disease) Glaucoma Hyperlipidemia Hyperparathyroidism, secondary renal Hypothyroidism Leg wound, right Lichenification and lichen simplex chronicus Major depressive disorder Methicillin resistant Staphylococcus epidermidis infection Neurodermatitis Non-proliferative diabetic retinopathy, both eyes Nonobstructive atherosclerosis of coronary artery Normocytic anemia Nummular eczema Obesity Open wound of right forearm 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) Recurrent syncope (03/28/21) Severe protein-calorie malnutrition Skin tear of right forearm without complication Skin tear of right lower leg without complication Stage 3 chronic kidney disease Stenosis of left carotid artery Torsades de pointes (03/28/21) Transient visual loss, right eye (11/2020) Type II diabetes mellitus Ventricular tachycardia Vitamin B 12 deficiency Home Medications atorvastatin 80 mg tablet 80 mg PO QHS CHOLESTEROL 10/12/18 [History Last Taken 10/10/22] omeprazole 40 mg capsule,delayed release 40 mg PO DAILY ACID REFLUX 10/12/18 [History Last Taken 10/10/22] albuterol sulfate 90 mcg/actuation aerosol inhaler 2 puff inhalation Q4H PRN SHORTNESS OF BREATH 10/13/18 [History Last Taken Unknown] montelukast 10 mg tablet 10 mg PO QHS ALLERGIES 10/26/19 [History Last Taken 10/10/22] acetaminophen 325 mg tablet 650 mg PO Q4H PRN pain/fever 05/10/21 [History Last Taken Unknown] ergocalciferol (vitamin D2) 50,000 unit tablet 50,000 unit PO MO SUPPLEMENT 05/10/21 [History Last Taken 10/07/22] ipratropium 0.5 mg-albuterol 3 mg (2.5 mg base)/3 mL nebulization soln 3 ml inhalation Q6H PRN SHORTNESS OF BREATH 05/10/21 [History Last Taken Unknown] fluticasone propionate 110 mcg/actuation HFA aerosol inhaler (Flovent HFA) 1 puff inhalation BID PRN Wheezing 02/08/22 [History Last Taken Unknown] latanoprost 0.005 % eye drops 1 drp ophthalmic (eye) ONCE GLAUCOMA 02/08/22 [History Last Taken Unknown] meclizine 12.5 mg tablet 12.5 mg PO BID VERTIGO 02/08/22 [History Last Taken 10/10/22] tiotropium bromide 2.5 mcg/actuation mist for inhalation (Spiriva Respimat) 2 puff inhalation QAM PRN Wheezing 02/08/22 [History Last Taken Unknown] bupropion HCl 100 mg tablet 100 mg PO BID DEPRESSION 08/16/22 [History Last Taken 10/10/22] insulin glargine 100 unit/mL (3 mL) subcutaneous pen (Lantus Solostar U-100 Insulin) 8 unit subcut DAILY BLOOD SUGARS 08/16/22 [History Last Taken 10/10/22] levothyroxine 137 mcg tablet 137 mcg PO MOTUWETH 08/16/22 [History Last Taken 10/10/22] potassium chloride 20 mEq tablet,extended release 20 meq PO MOFR SUPPLEMENT 08/16/22 [History Last Taken 10/07/22] aspirin 81 mg tablet,delayed release (Adult Aspirin Regimen) 81 mg PO DAILY HEART HEALTH 10/11/22 [History Last Taken 10/10/22] calcitriol 0.25 mcg capsule 0.25 mcg PO WEFR 10/11/22 [History Last Taken 10/09/22] calcium acetate(phosphat bind) 667 mg capsule 667 mg PO TID 10/11/22 [History Last Taken Unknown] carvedilol 12.5 mg tablet 12.5 mg PO DAILY HEART 10/11/22 [History Last Taken 10/10/22] levothyroxine 137 mcg capsule 205.5 mcg PO SUFRSA THYROID 10/11/22 [History Last Taken 10/06/22] magnesium oxide 400 mg PO DAILY SUPPLEMENT 10/11/22 [History Last Taken 10/10/22] mecobalamin (vitamin B12) 500 mcg chewable tablet 500 mcg PO DAILY SUPPLEMENT 10/11/22 [History Last Taken 10/10/22] pioglitazone 30 mg tablet 30 mg PO DAILY DIABETES 10/11/22 [History Last Taken 10/10/22] Allergy/AdvReac Type Severity Reaction Status Date / Time metformin [From Glucophage] Allergy Severe renal Verified 10/11/22 11:40 failure adhesive Allergy Intermediate blisters Verified 10/11/22 11:40 oxycodone Allergy Intermediate hallucinati Verified 10/11/22 11:40 ons tramadol Allergy Intermediate Vomiting Verified 10/11/22 11:40 ERIC Inhibitors AdvReac Intermediate cough Verified 10/11/22 11:40 buspirone [From BuSpar] AdvReac Hallucinati Verified 10/11/22 11:40 ons Family History Father Heart disease Hypertension Suicide Mother Hypertension CVA (cerebral vascular accident) COPD (chronic obstructive pulmonary disease) CAD (coronary artery disease) Surgical History History of bilateral knee replacement (1989) History of breast biopsy History of implantable cardiac defibrillator (ICD) (04/02/21) History of left heart catheterization (03/28/21) History of open reduction and internal fixation (ORIF) procedure History of right cataract extraction (10/03/11) History of temporary cardiac pacemaker treatment (03/28/21) History of tonsillectomy Social History household members: none Smoking Status: Never smoker alcohol intake: never substance use type: does not use caffeine: Yes Type: coffee Number of servings: 2 Physical Exam Const alert, oriented x3 and no apparent distress General Appearance: cooperative HEENT normocephalic and head/scalp atraumatic Eyes PERRL and EOMs intact bilaterally Neck supple and No nodes Resp normal air movement and clear to auscultation bilaterally Cardio regular rate and regular rhythm GI soft to palpation, non-tender and non-distended Extremity General Extremity: edema Skin no rashes or lesions noted Neuro CN's II-XII intact bilaterally Lab / Micro Data Attestation: I reviewed the patient's lab results. 10/14/22 01:45 10/14/22 01:45 Labs: Laboratory Results - last 24 hr 10/13/22 14:41: POC Glucose 78 10/13/22 16:05: POC Glucose 82 10/13/22 19:45: Hgb 7.8 L, Hct 24.8 L 10/14/22 01:45: Hgb 8.1 L, Hct 25.2 L, Sodium 136, Potassium 3.3 L, Chloride 102, Carbon Dioxide 24.0, Anion Gap 10, BUN 35 H, Creatinine 5.42 H, Estim Creat Clear Calc 5.95, Est GFR (MDRD) Af Amer 10 L, Est GFR (MDRD) Non-Af 8 L, BUN/Creatinine Ratio 6.5 L, Glucose 221 H, Calcium 7.7 L 10/14/22 08:02: POC Glucose 140 H 10/14/22 11:33: POC Glucose 134 H Micro: Microbiology 10/12/22 12:50 Fluid - Paracentesis (Abd) Gram Stain - Final 10/12/22 12:50 Fluid - Paracentesis (Abd) Body Fluid Culture - Preliminary Staphylococcus species 10/12/22 12:50 Fluid - Paracentesis (Abd) Anaerobic Culture - Preliminary Checking for anaerobes, further studies to follow. 10/11/22 13:30 Blood Culture (Wb) - Venous Blood Culture - Preliminary No growth in 48 hours. 10/11/22 12:45 Blood Culture (Wb) - Arm Right Blood Culture - Preliminary No growth in 48 hours. Rhythm Strip Ectopy: - (Majority paced)
--- NOTE | 2022-10-14 15:11 | EX.PCM.CON.S ---
Assessment & Plan Assessment/Plan (1) Peritonitis associated with peritoneal dialysis: QUALIFIERS: Encounter type: initial encounter Qualified Code(s): T85.71XA - Infection and inflammatory reaction due to peritoneal dialysis catheter, initial encounter PLAN: I have been consulted in conjunction with Dr. Beverly by nephrology. Patient is currently in the ICU for syncopal episode, hypotension and generalized peritonitis from an infected peritoneal dialysis catheter. Patient continues to be dependent on Levophed via right central line. Patient was not agreeable at first to have a tunneled dialysis catheter placement if needed, however changed her mind during my evaluation. Following discussion with Dr. Beverly and given the patient's history, patient will need a temporary dialysis catheter placed. Once patient is stable enough for the operating room, i.e. off Levophed, Dr. Beverly will plan to place a right tunneled dialysis catheter. This plan was discussed with Dr. Zuniga by Dr. Beverly. At this time there is no plans to have the peritoneal dialysis catheters removed. Patient has had the opportunity to ask and have questions answered. Patient verbally understands and agrees with the proposed plan. We will continue to monitor this patient. Thank you for participating in this patient's care. (2) ESRD on peritoneal dialysis: HPI Consult Data Date of Consult: 10/14/22 HPI Narrative Reason for Consultation: Tunneled dialysis catheter placement HPI Narrative: Chalino WHELAN, is a 82 F who presents following a syncopal episode. Patient performs peritoneal dialysis at home by the daughter and [id number]. Patient notes she has been compliant with her treatments. She notes the only treatment she has missed was on Friday when she came into the ED. Patient notes she had a fall and fell on her right leg which is now bothering her. She notes generalized abdominal pain currently. She notes the discomfort remains the same as on admission. Patient notes she had a pacemaker placed 1 year ago. She notes she was transferred to [facility] to have the pacemaker placed following a hospitalization where she was found to be in torsades which lead to cardiac arrest and PEA for 3 minutes. ACLS was performed and successful. Patient notes she follows with [facility]. She notes her last pacer check was on 08/16/22. [facility] Medical History Acute respiratory failure Albuminuria Asthma Bilateral carotid artery stenosis Chronic anemia Chronic diastolic CHF (congestive heart failure) Chronic kidney disease Esophageal dysphagia ESRD on peritoneal dialysis Essential hypertension GERD (gastroesophageal reflux disease) Glaucoma Hyperlipidemia Hyperparathyroidism, secondary renal Hypothyroidism Leg wound, right Lichenification and lichen simplex chronicus Major depressive disorder Methicillin resistant Staphylococcus epidermidis infection Neurodermatitis Non-proliferative diabetic retinopathy, both eyes Nonobstructive atherosclerosis of coronary artery Normocytic anemia Nummular eczema Obesity Open wound of right forearm 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) Recurrent syncope (03/28/21) Severe protein-calorie malnutrition Skin tear of right forearm without complication Skin tear of right lower leg without complication Stage 3 chronic kidney disease Stenosis of left carotid artery Torsades de pointes (03/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) Transient visual loss, right eye (11/2020) Type II diabetes mellitus Ventricular tachycardia Vitamin B 12 deficiency Home Medications atorvastatin 80 mg tablet 80 mg PO QHS CHOLESTEROL 10/12/18 [History Last Taken 10/10/22] omeprazole 40 mg capsule,delayed release 40 mg PO DAILY ACID REFLUX 10/12/18 [History Last Taken 10/10/22] albuterol sulfate 90 mcg/actuation aerosol inhaler 2 puff inhalation Q4H PRN SHORTNESS OF BREATH 10/13/18 [History Last Taken Unknown] montelukast 10 mg tablet 10 mg PO QHS ALLERGIES 10/26/19 [History Last Taken 10/10/22] acetaminophen 325 mg tablet 650 mg PO Q4H PRN pain/fever 05/10/21 [History Last Taken Unknown] ergocalciferol (vitamin D2) 50,000 unit tablet 50,000 unit PO MO SUPPLEMENT 05/10/21 [History Last Taken 10/07/22] ipratropium 0.5 mg-albuterol 3 mg (2.5 mg base)/3 mL nebulization soln 3 ml inhalation Q6H PRN SHORTNESS OF BREATH 05/10/21 [History Last Taken Unknown] fluticasone propionate 110 mcg/actuation HFA aerosol inhaler (Flovent HFA) 1 puff inhalation BID PRN Wheezing 02/08/22 [History Last Taken Unknown] latanoprost 0.005 % eye drops 1 drp ophthalmic (eye) ONCE GLAUCOMA 02/08/22 [History Last Taken Unknown] meclizine 12.5 mg tablet 12.5 mg PO BID VERTIGO 02/08/22 [History Last Taken 10/10/22] tiotropium bromide 2.5 mcg/actuation mist for inhalation (Spiriva Respimat) 2 puff inhalation QAM PRN Wheezing 02/08/22 [History Last Taken Unknown] bupropion HCl 100 mg tablet 100 mg PO BID DEPRESSION 08/16/22 [History Last Taken 10/10/22] insulin glargine 100 unit/mL (3 mL) subcutaneous pen (Lantus Solostar U-100 Insulin) 8 unit subcut DAILY BLOOD SUGARS 08/16/22 [History Last Taken 10/10/22] levothyroxine 137 mcg tablet 137 mcg PO MOTUWETH 08/16/22 [History Last Taken 10/10/22] potassium chloride 20 mEq tablet,extended release 20 meq PO MOFR SUPPLEMENT 08/16/22 [History Last Taken 10/07/22] aspirin 81 mg tablet,delayed release (Adult Aspirin Regimen) 81 mg PO DAILY HEART HEALTH 10/11/22 [History Last Taken 10/10/22] calcitriol 0.25 mcg capsule 0.25 mcg PO WEFR 10/11/22 [History Last Taken 10/09/22] calcium acetate(phosphat bind) 667 mg capsule 667 mg PO TID 10/11/22 [History Last Taken Unknown] carvedilol 12.5 mg tablet 12.5 mg PO DAILY HEART 10/11/22 [History Last Taken 10/10/22] levothyroxine 137 mcg capsule 205.5 mcg PO SUFRSA THYROID 10/11/22 [History Last Taken 10/06/22] magnesium oxide 400 mg PO DAILY SUPPLEMENT 10/11/22 [History Last Taken 10/10/22] mecobalamin (vitamin B12) 500 mcg chewable tablet 500 mcg PO DAILY SUPPLEMENT 10/11/22 [History Last Taken 10/10/22] pioglitazone 30 mg tablet 30 mg PO DAILY DIABETES 10/11/22 [History Last Taken 10/10/22] Allergy/AdvReac Type Severity Reaction Status Date / Time metformin [From Glucophage] Allergy Severe renal Verified 10/11/22 11:40 failure adhesive Allergy Intermediate blisters Verified 10/11/22 11:40 oxycodone Allergy Intermediate hallucinati Verified 10/11/22 11:40 ons tramadol Allergy Intermediate Vomiting Verified 10/11/22 11:40 ERIC Inhibitors AdvReac Intermediate cough Verified 10/11/22 11:40 buspirone [From BuSpar] AdvReac Hallucinati Verified 10/11/22 11:40 ons Family History Father Heart disease Hypertension Suicide Mother Hypertension CVA (cerebral vascular accident) COPD (chronic obstructive pulmonary disease) CAD (coronary artery disease) Surgical History History of bilateral knee replacement (1989) History of breast biopsy History of implantable cardiac defibrillator (ICD) (04/02/21) History of left heart catheterization (03/28/21) History of open reduction and internal fixation (ORIF) procedure History of right cataract extraction (10/03/11) History of temporary cardiac pacemaker treatment (03/28/21) History of tonsillectomy Social History household members: none Smoking Status: Never smoker alcohol intake: never substance use type: does not use caffeine: Yes Type: coffee Number of servings: 2 ROS Constitutional Constitutional: Reports systems reviewed and no addt'l complaints, except as documented Eyes Eyes: Reports systems reviewed and no addt'l complaints, except as documented ENT HEENT: Reports systems reviewed and no addt'l complaints, except as documented Cardiovascular Cardiovascular: Reports systems reviewed and no addt'l complaints, except as documented Respiratory/Chest Respiratory/Chest: Reports systems reviewed and no addt'l complaints, except as documented Gastrointestinal Gastrointestinal: Reports systems reviewed and no addt'l complaints, except as documented Genitourinary Genitourinary: Reports systems reviewed and no addt'l complaints, except as documented Musculoskeletal Musculoskeletal: Reports systems reviewed and no addt'l complaints, except as documented Integumentary Integumentary: Reports systems reviewed and no addt'l complaints, except as documented Neurologic Neurologic: Reports systems reviewed and no addt'l complaints, except as documented Psychiatric Psychiatric: Reports systems reviewed and no addt'l complaints, except as documented Endocrine Endocrinology: Reports systems reviewed and no addt'l complaints, except as documented Hematologic/Lymphatic Hematologic/Lymphatic: Reports systems reviewed and no addt'l complaints, except as documented Allergic/Immunologic Allergic/Immunologic: Reports systems reviewed and no addt'l complaints, except as documented Physical Exam Const alert, oriented x3 and no apparent distress HEENT normocephalic and head/scalp atraumatic Eyes EOMs intact bilaterally Neck full ROM and no lymphadenopathy Neck Narrative: Right IJ central line noted Lymph Lymphatic: no lymphadenopathy noted Chest Chest Narrative: Left chest pacemaker Resp normal respiratory effort Auscultation: wheezes throughout Cardio regular rate and regular rhythm GI GI Narrative: Generalized tenderness palpated. Very minimal amount of faint redness noted Palpation: firm and tender other (generalized tenderness) no CVA tenderness Back/Spine no CVA tenderness Extremity General Extremity: edema bilateral lower extremity Details: mild Skin General Skin Exam: ecchymosis Neuro no sensory deficits noted Psych mental status grossly normal Lab / Micro Data 10/14/22 01:45 10/14/22 01:45 Labs: Laboratory Results - last 24 hr 10/13/22 16:05: POC Glucose 82 10/13/22 19:45: Hgb 7.8 L, Hct 24.8 L 10/14/22 01:45: Hgb 8.1 L, Hct 25.2 L, Sodium 136, Potassium 3.3 L, Chloride 102, Carbon Dioxide 24.0, Anion Gap 10, BUN 35 H, Creatinine 5.42 H, Estim Creat Clear Calc 5.95, Est GFR (MDRD) Af Amer 10 L, Est GFR (MDRD) Non-Af 8 L, BUN/Creatinine Ratio 6.5 L, Glucose 221 H, Calcium 7.7 L 10/14/22 08:02: POC Glucose 140 H 10/14/22 11:33: POC Glucose 134 H Micro: Microbiology 10/12/22 12:50 Fluid - Paracentesis (Abd) Gram Stain - Final 10/12/22 12:50 Fluid - Paracentesis (Abd) Body Fluid Culture - Preliminary Staphylococcus species 10/12/22 12:50 Fluid - Paracentesis (Abd) Anaerobic Culture - Preliminary Checking for anaerobes, further studies to follow. 10/11/22 13:30 Blood Culture (Wb) - Venous Blood Culture - Preliminary No growth in 48 hours. 10/11/22 12:45 Blood Culture (Wb) - Arm Right Blood Culture - Preliminary No growth in 48 hours. Rhythm Strip Ectopy: - (Majority paced) Charges/Coding Visit Charges Office Visits / Consults: 58009 IP Consult L3
[2022-10-14] MEDS: Gabapentin 100 MG Capsule PO (16:33)
--- NOTE | 2022-10-14 16:35 | CHAPLAIN ---
Type of Pastoral Visit _x__ Initial Visit ___ Follow-up Visit ___ On-call Visit ___ General Patient Visit ___ Spiritual Assessment ___ Family Conference ___ Bereavement ___ Rapid Response ___ Code Blue ___ Other (describe below) Pastoral Care Referral From _x__ Patient ___ Family ___ Nurse ___ Physician ___ Sprue Cutting Press Operator ___ Handle Sander Operator ___ Other (describe below) Sacrament/Intervention _x__ Active listening ___ Anointing ___ Confucianism ___ Bereavement ___ Communion ___ Kathrine exploration ___ ___ Life review _x__ Prayer ___ Reconciliation ___ Sacrament of Sick _x__ Supportive presence ___ Wedding ___ Other (describe below) Pastoral Comments patient is resting quietly in bed; pt is able to describe a couple of her concerns and ask for prayer; calming presence and assurance given; prayer for requests given; offer of future support made known
[2022-10-14 16:53] LABS: Bedside Glucose 74 mg/dL (74-106)
[2022-10-14] MEDS: Latanoprost 0.005% 1 Bottle 1 DRP EACH EYE (21:07)
[2022-10-14] MEDS: 0.9% Saline Lock 10 ML Syringe IV (21:07)
[2022-10-14 21:10] LABS: Bedside Glucose 143 mg/dL (74-106)
[2022-10-15] VITALS (46 sets, daily range): BP systolic 89–164; BP diastolic 30–88; PULSE 70–71; RESP 14–19; TEMP 36.4–36.7; O2SAT 80–99; BMI 47.7; BMI 47.8; BMI 47.0
[2022-10-15] MEDS: Ipratropium 0.5 MG/2.5 ML SOLUTION INHALATION ×3 (01:31→19:00)
[2022-10-15 03:19] LABS: Absolute Lymphocyte Count 1.57 X10^3/uL (0.83-4.51); Absolute Neutrophil Count 4.9 X10^3/uL (2.0-7.7); Basophil# 0.03 X10^3/uL; Basophil% 0.4 % (0-1); Eosinophil# 0.35 X10^3/uL; Eosinophils% 4.7 % (0-5); Hemoglobin 7.6 g/dL (12.0-15.0); Lymphocyte # 1.57 X10^3/ul (0.83-4.51); Mean Corp Hgb Conc 31.7 g/dL (32-36); Mean Corpuscular Hgb 32.5 pg (27.0-32.0); Mean Corpuscular Volume 102.6 fL (81-99); Mean Platelet Vol. 9.4 fl (6.2-12.0); Monocyte# 0.47 X10^3/uL; Monocyte% 6.3 % (0-10); NRBC Flagged by Analyzer 0 % (0-5); Neutrophil # 4.85 X10^3/uL (2.7-7.7); Neutrophil % 64.9 % (47-70); Platelet Count 215 K/mm3 (150-450); RBC Distribution Width CV 17.4 % (11.6-14.6); RBC Distribution Width SD 64.2 fl (35.1-43.9); Red Blood Count 2.34 M/mm3 (4.2-5.4); White Blood Count 7.5 K/mm3 (4.4-11.0)
[2022-10-15 04:47] LABS: ALB/GLOB Ratio 0.3 RATIO (0.9-2.4); AST(SGOT) 27 U/L (15-37); Alanine Aminotransfer ALT/SGPT 20 U/L (13-56); Albumin, Serum 1.1 g/dL (3.2-5.0); Alkaline Phosphatase 73 U/L (45-117); Anion Gap 5 (5-15); BUN 32 mg/dL (7-18); BUN/Creat Ratio 6.1 RATIO (10-20); Calcium,Total 7.4 mg/dL (8.5-10.1); Chloride 105 mmol/L (98-107); Creatinine, Serum 5.21 mg/dL (0.55-1.02); EST Glomerular Filtration Rate 8 mL/min (>60); Est Glom Filt Rate - Afr Amer 10 mL/min (>60); Estimated Creatinine Clearance 6.19 ml/min; Globulin 3.7 g/dL (2.2-4.2); Glucose 182 mg/dL (74-106); Magnesium 1.6 mg/dL (1.6-2.6); Phosphorus 3.5 mg/dL (2.5-4.9); Potassium 3.5 mmol/L (3.5-5.1); Protein, Total 4.8 g/dL (6.4-8.2); Sodium Level 138 mmol/L (136-145)
[2022-10-15] MEDS: Heparin Injection (Vial) 5,000 UNIT/ML VIAL 5000 UNIT SC ×2 (05:08→21:17)
[2022-10-15 05:12] LABS: Vancomycin, Random Level 27.8 ug/mL (0.0-15.0)
--- NOTE | 2022-10-15 06:46 | PCM.PN.INT ---
Assessment & Plan Assessment/Plan (1) Septic shock: PLAN: Plan RECOMMENDATIONS: 1. Consider placement of midline with tunneled hemodialysis line 2. Continue vasopressor support to maintain mean arterial pressure at or above 65 mmHg. 3. Hemodialysis after access is obtained 4. Continue appropriate DVT prophylaxis. 5. Continue Accu-Cheks and sliding scale insulin. IMPRESSIONS: 1. Septic shock secondary to bacterial peritonitis Peritoneal cultures are now showing coag negative staph. This appears to be a repeat infection from July. Patient was treated with 14 days of vancomycin at that time. Patient has not had very good volume removal with peritoneal dialysis in the setting. Clinical suspicion is patient will not be able to come off of pressors until adequate clearance is obtained. Patient is positive almost 9 L over the course of the hospitalization. Patient on minimal pressors and this could be provided peripherally. Plan to continue vasopressor support to maintain mean arterial pressure at or above 65 mmHg. 2. Syncope Clinical suspicion that this was secondary to decreased intravascular volume secondary to problem #1. Patient does have a upper airway wheeze at this time, but this is likely secondary to fluid overload. Patient does appear to have some anasarca at this time. 3. History of chronic kidney disease on peritoneal dialysis Nephrology is following to assist with medical management. 4. Morbid obesity/hyperlipidemia/hypertension/hypothyroidism/diabetes mellitus Complicates care, management, recovery and prognosis. Continue supportive measures as noted above. Continue Accu-Cheks and sliding scale insulin coverage. TIME: 35 minutes of critical care time, independent of procedures, was spent addressing the patient's septic shock, syncope, review of all data and collaboration with the care team. Subjective Subjective Patient did okay overnight. Patient remains on Levophed. Patient also being seen by GI secondary to dysphagia. Spoke with the family for approximately 25 minutes yesterday about dialysis access. Family had not made a decision last night following the meeting. This morning, patient is stating that she wants to just go forward with a tunneled hemodialysis line and not have 2 separate procedures. Patient states she is willing to do a short course of hemodialysis and reassess. Objective Data Objective Data Vital Signs: Vital Signs Temp Pulse Resp BP Pulse Ox O2 Del Method O2 Flow Rate 36.4 C L 70 17 125/46 H 95 Room Air 17 10/15/22 06:00 10/15/22 06:00 10/15/22 06:00 10/15/22 06:00 10/15/22 06:00 10/15/22 06:00 10/15/22 01:00 FiO2 2 10/14/22 01:00 Oxygen Flow Rate (L/min) 17 Oxygen Delivery Method Room Air Weight: 110.2 kg Body Mass Index (BMI) 47.7 Intake & Output: Intake and Output for Last 24 Hours 10/13/22 10/14/22 10/15/22 23:59 23:59 23:59 Intake Total 1978.68 / 1979.63 366.61 / 372.21 176.13 / 176.13 Output Total 100 / 100 280 / 280 Balance 1878.68 / 1879.63 86.61 / 92.21 176.13 / 176.13 Lab / Micro Data Attestation: I reviewed the patient's lab results. 10/15/22 03:05 10/15/22 03:05 Labs: Laboratory Results - last 24 hr 10/14/22 08:02: POC Glucose 140 H 10/14/22 11:33: POC Glucose 134 H 10/14/22 16:33: POC Glucose 74 10/14/22 20:50: POC Glucose 143 H 10/15/22 03:05: WBC 7.5, RBC 2.34 L, Hgb 7.6 L, Hct 24.0 L, MCV 102.6 H, MCH 32.5 H, MCHC 31.7 L, RDW Std Deviation 64.2 H, RDW Coeff of Alanna 17.4 H, Plt Count 215, MPV 9.4, Immature Gran % (Auto) 2.700 H, Neut % (Auto) 64.9, Lymph % (Auto) 21.0, [place] % (Auto) 6.3, Eos % (Auto) 4.7, Baso % (Auto) 0.4, Absolute Neuts (auto) 4.9, Absolute Lymphs (auto) 1.57, Nucleated RBC % 0, Sodium 138, Potassium 3.5, Chloride 105, Carbon Dioxide 28.0, Anion Gap 5, BUN 32 H, Creatinine 5.21 H, Estim Creat Clear Calc 6.19, Est GFR (MDRD) Af Amer 10 L, Est GFR (MDRD) Non-Af 8 L, BUN/Creatinine Ratio 6.1 L, Glucose 182 H, Calcium 7.4 L, Phosphorus 3.5, Magnesium 1.6, Total Bilirubin 0.30, AST 27, ALT 20, Alkaline Phosphatase 73, Total Protein 4.8 L, Albumin 1.1 L, Globulin 3.7, Albumin/Globulin Ratio 0.3 L, Random Vancomycin 27.8 H Micro: Microbiology 10/12/22 12:50 Fluid - Paracentesis (Abd) Gram Stain - Final 10/12/22 12:50 Fluid - Paracentesis (Abd) Body Fluid Culture - Final Coag Negative Staph 10/12/22 12:50 Fluid - Paracentesis (Abd) Anaerobic Culture - Preliminary Checking for anaerobes, further studies to follow. 10/11/22 13:30 Blood Culture (Wb) - Venous Blood Culture - Preliminary No growth in 48 hours. 10/11/22 12:45 Blood Culture (Wb) - Arm Right Blood Culture - Preliminary No growth in 48 hours. Rhythm Strip Ectopy: - (Majority paced) Physical Exam Const alert and no apparent distress Constitutional Narrative: Anasarca General Appearance: cooperative HEENT normocephalic, head/scalp atraumatic and moist oral mucous membranes Eyes PERRL, EOMs intact bilaterally and conjunctivae normal Neck supple General: trachea midline and CVC in place Chest inspection of chest normal Resp normal respiratory effort Auscultation: diminished lung sounds; Negative for rales, rhonchi or wheezes Cardio regular rate, regular rhythm, no murmurs, no rub and no gallops GI normal to inspection, nondistended, normoactive bowel sounds Extremity General Extremity: edema; Negative for clubbing Skin no rashes or lesions noted Neuro CN's II-XII intact bilaterally, moves all extremities and no focal motor deficits Psych cooperative and affect normal Charges/Coding Procedures Hospitalists Procedures: 31572 Critial Care 1st Hr
[2022-10-15] MEDS: Budesonide Respules 0.5 MG/2 ML AMPUL.NEB. INHALATION ×2 (06:59→19:00)
--- NOTE | 2022-10-15 08:00 | PCM.RX.CS ---
Consult Antibiotic Management Pharmacy has been consulted to manage selected antiobiotic: Vancomycin Type of Intervention Type of Consult: Follow-up Suspected Infection Suspected Infection: Other (PERITONITIS) Prior Doses of Antibiotics Prior Doses of Antibiotics Received/Current Regimen: 2000 MG IV VANCOMYCIN X1 GIVEN ON 10/11, 1500 MG VANCOMYCIN X 1 GIVEN ON 10/13. Labs Labs: Sodium 138 mmol/L (136-145) 10/15/22 03:05 Potassium 3.5 mmol/L (3.5-5.1) 10/15/22 03:05 Chloride 105 mmol/L (98-107) 10/15/22 03:05 Carbon Dioxide 28.0 mmol/L (21.0-32.0) 10/15/22 03:05 Anion Gap 5 (5-15) 10/15/22 03:05 BUN 32 mg/dL (7-18) H 10/15/22 03:05 Creatinine 5.21 mg/dL (0.55-1.02) H 10/15/22 03:05 Est GFR (MDRD) Af Amer 10 mL/min (>60) L 10/15/22 03:05 Est GFR (MDRD) Non-Af 8 mL/min (>60) L 10/15/22 03:05 BUN/Creatinine Ratio 6.1 RATIO (10-20) L 10/15/22 03:05 Glucose 182 mg/dL (74-106) H 10/15/22 03:05 Random Vancomycin 27.8 ug/mL (0.0-15.0) H 10/15/22 03:05 Microbiology Microbiology: Microbiology 10/12/22 12:50 Fluid - Paracentesis (Abd) Gram Stain - Final 10/12/22 12:50 Fluid - Paracentesis (Abd) Body Fluid Culture - Final Coag Negative Staph 10/12/22 12:50 Fluid - Paracentesis (Abd) Anaerobic Culture - Preliminary Checking for anaerobes, further studies to follow. 10/11/22 13:30 Blood Culture (Wb) - Venous Blood Culture - Preliminary No growth in 48 hours. 10/11/22 12:45 Blood Culture (Wb) - Arm Right Blood Culture - Preliminary No growth in 48 hours. Dosing Weight Weight used for dosin.6 kg Estimated Creatinine Clearance Estimated Creatinine Clearance: PD Goal Trough Goal Trough: 15-20 mcg/mL Pharmacy Plan for Drug Dosing Pharmacy Plan for Drug Dosing: VANCOMYCIN RANDOM IS 27.8 THIS AM, WILL GET ANOTHER RANDOM LEVEL TOMORROW 10/16/22 AND ADJUST REQUIRED Pharmacy Service will continue to monitor and adjust dosing as required. Follow-Up Labs Follow-Up Labs: Trough: Vancomycin (VANCOMYCIN RANDOM) Date/Time Labs Ordered Labs to be done on [date and time ordered]: VANCOMYCIN RANDOM 10/16/22 @ 0600
[2022-10-15] MEDS: Gabapentin 100 MG Capsule PO (09:19)
[2022-10-15] MEDS: Potassium Chloride Oral Tablet 20 MEQ 40 MEQ PO (09:19)
[2022-10-15] MEDS: Aspirin E.C. 81 MG Tablet PO (09:20)
[2022-10-15] MEDS: Magnesium Chloride 64 MG Delay Rel.Tablet 128 MG PO (09:20)
[2022-10-15] MEDS: Midodrine HCl 5 MG Tablet 10 MG PO ×3 (09:20→16:56)
[2022-10-15] MEDS: buPROPion 100 MG Tablet PO ×2 (09:20→21:17)
[2022-10-15] MEDS: Calcium Acetate 667 MG Capsule PO ×2 (09:20→11:16)
[2022-10-15] MEDS: Cyanocobalamin 500 MCG Tablet PO (09:21)
--- NOTE | 2022-10-15 09:49 | PCM.PN.SRG ---
Documented by User: Phoebe RUIZ PA-C 10/15/22 10:22 Subjective Subjective Patient evaluated resting comfortably in bed. Patient's daughter and [id number] are present in the room. Patient notes her abdominal pain/discomfort has much improved from yesterday. Patient was being taken off of peritoneal dialysis as I was entering in the room. Patient's right IJ central line remains in place. Patient continues to be on Levo. Objective Data Objective Data Vital Signs: Vital Signs Temp Pulse Resp BP Pulse Ox O2 Del Method O2 Flow Rate 97.6 F L 70 16 122/71 H 96 Room Air 17 10/15/22 06:00 10/15/22 08:00 10/15/22 08:00 10/15/22 08:00 10/15/22 08:00 10/15/22 08:00 10/15/22 01:00 FiO2 2 10/14/22 01:00 Oxygen Flow Rate (L/min) 17 Oxygen Delivery Method Room Air Weight: 242 lb 15.19 oz Body Mass Index (BMI) 47.7 Intake & Output: Intake and Output for Last 24 Hours 10/13/22 10/14/22 10/15/22 23:59 23:59 23:59 Intake Total 1978.68 / 1979.63 366.61 / 372.21 187.33 / 187.33 Output Total 100 / 100 280 / 280 180 / 180 Balance 1878.68 / 1879.63 86.61 / 92.21 7.33 / 7.33 Lab / Micro Data 10/15/22 03:05 10/15/22 03:05 Labs: Laboratory Results - last 24 hr 10/14/22 11:33: POC Glucose 134 H 10/14/22 16:33: POC Glucose 74 10/14/22 20:50: POC Glucose 143 H 10/15/22 03:05: WBC 7.5, RBC 2.34 L, Hgb 7.6 L, Hct 24.0 L, MCV 102.6 H, MCH 32.5 H, MCHC 31.7 L, RDW Std Deviation 64.2 H, RDW Coeff of Alanna 17.4 H, Plt Count 215, MPV 9.4, Immature Gran % (Auto) 2.700 H, Neut % (Auto) 64.9, Lymph % (Auto) 21.0, [place] % (Auto) 6.3, Eos % (Auto) 4.7, Baso % (Auto) 0.4, Absolute Neuts (auto) 4.9, Absolute Lymphs (auto) 1.57, Nucleated RBC % 0, Sodium 138, Potassium 3.5, Chloride 105, Carbon Dioxide 28.0, Anion Gap 5, BUN 32 H, Creatinine 5.21 H, Estim Creat Clear Calc 6.19, Est GFR (MDRD) Af Amer 10 L, Est GFR (MDRD) Non-Af 8 L, BUN/Creatinine Ratio 6.1 L, Glucose 182 H, Calcium 7.4 L, Phosphorus 3.5, Magnesium 1.6, Total Bilirubin 0.30, AST 27, ALT 20, Alkaline Phosphatase 73, Total Protein 4.8 L, Albumin 1.1 L, Globulin 3.7, Albumin/Globulin Ratio 0.3 L, Random Vancomycin 27.8 H Micro: Microbiology 10/12/22 12:50 Fluid - Paracentesis (Abd) Gram Stain - Final 10/12/22 12:50 Fluid - Paracentesis (Abd) Body Fluid Culture - Final Coag Negative Staph 10/12/22 12:50 Fluid - Paracentesis (Abd) Anaerobic Culture - Preliminary Checking for anaerobes, further studies to follow. 10/11/22 13:30 Blood Culture (Wb) - Venous Blood Culture - Preliminary No growth in 48 hours. 10/11/22 12:45 Blood Culture (Wb) - Arm Right Blood Culture - Preliminary No growth in 48 hours. Rhythm Strip Ectopy: - (Majority paced) Physical Exam GI GI Narrative: Peritoneal catheter in place- no erythema or infection noted at the catheter site. Abdomen is non-tender to palpation Inspection: abdominal distention and central obesity Assessment & Plan Assessment/Plan (1) Peritonitis associated with peritoneal dialysis: QUALIFIERS: Encounter type: initial encounter Qualified Code(s): T85.71XA - Infection and inflammatory reaction due to peritoneal dialysis catheter, initial encounter PLAN: Patient was reviewed with Dr. Beverly Patient's support family was under the impression a tunneled dialysis catheter was going to be placed today. Following discussion with Dr. Zuniga yesterday, patient's right IJ will be removed and replaced with a temporary dialysis catheter on the right side. Once patient is off of Levophed, Dr. Beverly will reassess patient for potential tunneled dialysis catheter placement at a future date. Patient and family have had the opportunity to ask and have questions answered. We will continue to monitor this patient. We plan to obtain patient's peritoneal dialysis catheter operative report to determine if removal may be completed at our facility, if necessary. Charges/Coding Visit Charges Inpatient E&M: 06211 Subs Hosp L1 Documented by User: Dr. Anyi Beverly MD 10/15/22 11:15 Objective Data Lab / Micro Data 10/15/22 03:05 10/15/22 03:05 Assessment & Plan Assessment/Plan (1) Peritonitis associated with peritoneal dialysis: QUALIFIERS: Encounter type: initial encounter Qualified Code(s): T85.71XA - Infection and inflammatory reaction due to peritoneal dialysis catheter, initial encounter PLAN: Plan I agree with Phoebe Amaya's note. We will plan to get the operative report from patient's peritoneal dialysis catheter placement--?obtain note patient does have a 9 cm mesh with permanent tacks near the site of insertion. Patient seen and examined. Also discussed with patient's family would not plan on placing a tunneled dialysis catheter while patient is still on pressors. Patient can get a temporary dialysis catheter exchange for her right IJ initially and then we can convert that when patient is more stable.
--- NOTE | 2022-10-15 10:53 | PCM.PN.ID ---
Physical Exam Narrative Abd pain about the same, no fever, in icu Const alert and no apparent distress Resp normal air movement and clear to auscultation bilaterally Cardio regular rate and regular rhythm GI soft to palpation and non-distended GI Narrative: mild soreness Skin no rashes or lesions noted ID ID: Route of nutrition/ use of supplements: [] Nutritional Intake: [] IV Site: [] Mittal Catheter: [] Assessment & Plan Assessment/Plan (1) Peritonitis associated with peritoneal dialysis: QUALIFIERS: Encounter type: initial encounter Qualified Code(s): T85.71XA - Infection and inflammatory reaction due to peritoneal dialysis catheter, initial encounter (2) Septic shock: PLAN: due to peritonitis. Fluid with MS-CoNS, starting to feel better. On vanc/zosyn, repeat fluid testing planned for today. Will narrow abx to cefazolin. Will follow, d/w neph
--- NOTE | 2022-10-15 10:54 | PCM.PN.REN ---
Subjective Subjective Resting in bed, states feeling little better today but states she feels puffy and full of fluid. Reports abdominal pain improved. Objective Data Objective Data Vital Signs: Vital Signs Temp Pulse Resp BP Pulse Ox O2 Del Method O2 Flow Rate 98.1 F 70 16 115/81 H 96 Room Air 17 10/15/22 10:00 10/15/22 10:00 10/15/22 10:00 10/15/22 10:00 10/15/22 10:00 10/15/22 10:00 10/15/22 01:00 FiO2 2 10/14/22 01:00 Oxygen Flow Rate (L/min) 17 Oxygen Delivery Method Room Air Weight: 110.2 kg Body Mass Index (BMI) 47.7 Intake & Output: Intake and Output for Last 24 Hours 10/13/22 10/14/22 10/15/22 23:59 23:59 23:59 Intake Total 1978.68 / 1979.63 366.61 / 372.21 198.53 / 198.53 Output Total 100 / 100 280 / 280 180 / 180 Balance 1878.68 / 1879.63 86.61 / 92.21 18.53 / 18.53 Lab / Micro Data 10/15/22 03:05 10/15/22 03:05 Labs: Laboratory Results - last 24 hr 10/14/22 11:33: POC Glucose 134 H 10/14/22 16:33: POC Glucose 74 10/14/22 20:50: POC Glucose 143 H 10/15/22 03:05: WBC 7.5, RBC 2.34 L, Hgb 7.6 L, Hct 24.0 L, MCV 102.6 H, MCH 32.5 H, MCHC 31.7 L, RDW Std Deviation 64.2 H, RDW Coeff of Alanna 17.4 H, Plt Count 215, MPV 9.4, Immature Gran % (Auto) 2.700 H, Neut % (Auto) 64.9, Lymph % (Auto) 21.0, [place] % (Auto) 6.3, Eos % (Auto) 4.7, Baso % (Auto) 0.4, Absolute Neuts (auto) 4.9, Absolute Lymphs (auto) 1.57, Nucleated RBC % 0, Sodium 138, Potassium 3.5, Chloride 105, Carbon Dioxide 28.0, Anion Gap 5, BUN 32 H, Creatinine 5.21 H, Estim Creat Clear Calc 6.19, Est GFR (MDRD) Af Amer 10 L, Est GFR (MDRD) Non-Af 8 L, BUN/Creatinine Ratio 6.1 L, Glucose 182 H, Calcium 7.4 L, Phosphorus 3.5, Magnesium 1.6, Total Bilirubin 0.30, AST 27, ALT 20, Alkaline Phosphatase 73, Total Protein 4.8 L, Albumin 1.1 L, Globulin 3.7, Albumin/Globulin Ratio 0.3 L, Random Vancomycin 27.8 H Micro: Microbiology 10/12/22 12:50 Fluid - Paracentesis (Abd) Gram Stain - Final 10/12/22 12:50 Fluid - Paracentesis (Abd) Body Fluid Culture - Final Coag Negative Staph 10/12/22 12:50 Fluid - Paracentesis (Abd) Anaerobic Culture - Preliminary Checking for anaerobes, further studies to follow. 10/11/22 13:30 Blood Culture (Wb) - Venous Blood Culture - Preliminary No growth in 48 hours. 10/11/22 12:45 Blood Culture (Wb) - Arm Right Blood Culture - Preliminary No growth in 48 hours. Rhythm Strip Ectopy: - (Majority paced) Physical Exam Narrative General: Alert and oriented x3, NAD. Neck: Supple, no JVD. Cardiovascular: Normal S1, S2. No rubs, murmurs, or gallops. Respiratory: Lungs are diminished breath sounds posterior bases Abdomen: Normal bowel sounds, soft, slightly tender to palpation. Examined exit site from around PD catheter/dressing, no redness, no drainage, no crusting Extremities: pitting edema b/l legs and thighs. edema to lower abdomen Assessment & Plan Assessment/Plan (1) ESRD on peritoneal dialysis: (2) Septic shock: (3) Peritonitis associated with peritoneal dialysis: QUALIFIERS: Encounter type: initial encounter Qualified Code(s): T85.71XA - Infection and inflammatory reaction due to peritoneal dialysis catheter, initial encounter PLAN: Plan Impression/Plan: The patient is a 82-year-old woman with past history of ESRD, type 2 diabetes mellitus, hypertension, CAD, heart failure with preserved ejection fraction, PAD, hypothyroidism, and hyperlipidemia. The patient presented to the hospital on 10/11/2022 with syncope and was diagnosed with circulatory shock requiring IV vasopressor and volume expansion. - ESRD on PD support; outpatient EDW was 93 kg. Over last 2 nights we have been using all 2.5% PD dianeal. There has been no UF with last couple PD cycles but in fact +200ml. Patient is net positive fluid in hospital. Today's wt 110kg. Patient is remaining on levophed 2-3 mcg/hr. Patient is becoming hypervolemic. Discussion was held with patient and her daughter about transitioning to hemodialysis. Both are in agreement. Surgery has been consulted regarding placement of tunneled HD catheter. Patient is still requiring pressor support therefore non-tunneled temporary HD catheter will be placed today and we will begin hemodialysis. Patient will dialyze over 2.5 hours and attempt 1 to 2 L fluid removal with dialysis today. We will plan for dialysis again tomorrow over 3 hours and attempt fluid removal as patient/blood pressure tolerates. CT A/P: Peritoneal dialysis catheter seen in right side of lower pelvis. - PD related peritonitis. PD effluent cell count from 10/12 was 3383 WBC with 75% neutrophil on differential. PD culture from 10/12/2022 coag negative staph; blood cultures so far negative to date. ID following, patient has been on vancomycin and Zosyn. Patient has been afebrile last few days. Now on cefazolin. To obtain PD cell count and cx tonight - seen by GI for dysphagia and going for EGD today.
[2022-10-15] MEDS: Cefazolin 1 GM/50 ML BAG IV (11:04)
[2022-10-15 11:33] LABS: Bedside Glucose 87 mg/dL (74-106)
--- NOTE | 2022-10-15 11:55 | PCM.PN.HOSP ---
Reason for Visit Reason for Visit: Syncope Subjective Subjective Patient states she is still feeling fairly poor. Plan is for temporary dialysis catheter placement today with probable transition to a tunneled line and hemodialysis for approximately 2 hours later today. Patient is amenable to this. It does not sound like she wants to be on permanent hemodialysis however this may be the most appropriate therapy for her at this time. It does not sound like her PD has been all that effective. She was off Levophed for a few hours last evening but had to be reinitiated and is currently on 3 mcg/min. EGD is planned for later today as there is no safe diet that can be recommended by speech therapy based on her examination. Objective Data Objective Data Vital Signs: Vital Signs Temp Pulse Resp BP Pulse Ox O2 Del Method O2 Flow Rate 98.1 F 71 18 119/48 L 98 Room Air 17 10/15/22 10:00 10/15/22 11:00 10/15/22 11:00 10/15/22 11:00 10/15/22 11:00 10/15/22 11:40 10/15/22 01:00 FiO2 2 10/14/22 01:00 Oxygen Flow Rate (L/min) 17 Oxygen Delivery Method Room Air Weight: 110.2 kg Body Mass Index (BMI) 47.7 Intake & Output: Intake and Output for Last 24 Hours 10/13/22 10/14/22 10/15/22 23:59 23:59 23:59 Intake Total 1978.68 / 1979.63 366.61 / 372.21 308.13 / 308.13 Output Total 100 / 100 280 / 280 180 / 180 Balance 1878.68 / 1879.63 86.61 / 92.21 128.13 / 128.13 Lab / Micro Data 10/15/22 03:05 10/15/22 03:05 Labs: Laboratory Results - last 24 hr 10/14/22 16:33: POC Glucose 74 10/14/22 20:50: POC Glucose 143 H 10/15/22 03:05: WBC 7.5, RBC 2.34 L, Hgb 7.6 L, Hct 24.0 L, MCV 102.6 H, MCH 32.5 H, MCHC 31.7 L, RDW Std Deviation 64.2 H, RDW Coeff of Alanna 17.4 H, Plt Count 215, MPV 9.4, Immature Gran % (Auto) 2.700 H, Neut % (Auto) 64.9, Lymph % (Auto) 21.0, [place] % (Auto) 6.3, Eos % (Auto) 4.7, Baso % (Auto) 0.4, Absolute Neuts (auto) 4.9, Absolute Lymphs (auto) 1.57, Nucleated RBC % 0, Sodium 138, Potassium 3.5, Chloride 105, Carbon Dioxide 28.0, Anion Gap 5, BUN 32 H, Creatinine 5.21 H, Estim Creat Clear Calc 6.19, Est GFR (MDRD) Af Amer 10 L, Est GFR (MDRD) Non-Af 8 L, BUN/Creatinine Ratio 6.1 L, Glucose 182 H, Calcium 7.4 L, Phosphorus 3.5, Magnesium 1.6, Total Bilirubin 0.30, AST 27, ALT 20, Alkaline Phosphatase 73, Total Protein 4.8 L, Albumin 1.1 L, Globulin 3.7, Albumin/Globulin Ratio 0.3 L, Random Vancomycin 27.8 H 10/15/22 11:15: POC Glucose 87 Micro: Microbiology 10/12/22 12:50 Fluid - Paracentesis (Abd) Gram Stain - Final 10/12/22 12:50 Fluid - Paracentesis (Abd) Body Fluid Culture - Final Coag Negative Staph 10/12/22 12:50 Fluid - Paracentesis (Abd) Anaerobic Culture - Preliminary Checking for anaerobes, further studies to follow. 10/11/22 13:30 Blood Culture (Wb) - Venous Blood Culture - Preliminary No growth in 48 hours. 10/11/22 12:45 Blood Culture (Wb) - Arm Right Blood Culture - Preliminary No growth in 48 hours. Rhythm Strip Ectopy: - (Majority paced) Physical Exam Const alert, oriented x3 and well nourished; Negative for average body habitus or healthy appearing Constitutional Narrative: Morbidly obese, acutely and chronically ill-appearing white female, lying in bed, appears comfortable at this time, does not appear toxic, mentating well but does appear fatigued HEENT head/scalp atraumatic HEENT Narrative: Mallampati 3, no thrush Head and Scalp: normocephalic Resp normal respiratory effort, no retractions, no use of accessory muscles and clear to auscultation bilaterally Auscultation: Negative for rales, rhonchi or wheezes Cardio regular rate, regular rhythm, S1 normal heart sound, S2 normal heart sound, no murmurs, no rub, no gallops and no clicks GI normal to inspection, nondistended, normoactive bowel sounds and soft to palpation GI Narrative: Mild diffuse tenderness Extremity Extremity Narrative: Scattered ecchymosis bilateral lower extremities with 1+ pitting edema, no cyanosis or clubbing Neuro oriented x3, moves all extremities and no focal motor deficits Neuro Narrative: Significant generalized weakness and with no focal deficits Speech: speech normal Psych Psych Narrative: Affect is flat and mood seems depressed however appropriate for the current medical situation Assessment & Plan Assessment/Plan (1) Septic shock: (2) Peritonitis associated with peritoneal dialysis: QUALIFIERS: Encounter type: initial encounter Qualified Code(s): T85.71XA - Infection and inflammatory reaction due to peritoneal dialysis catheter, initial encounter (3) Hypokalemia: (4) Hyperglycemia: (5) Dysphagia: PLAN: Plan Septic shock secondary to peritoneal dialysis catheter induced bacterial peritonitis -Cultures currently showing staph species -Blood cultures negative -Antibiotics narrowed today to cefazolin by infectious disease -Jossy on Levophed at 3 mics per minute -Wean as able to keep MAP greater than 65 -Continue midodrine 10 mg p.o. 3 times daily -ID following-appreciate input -Nephro is following-appreciate input -Critical care medicine is following-appreciate input Hypokalemia -Resolved -Magnesium level within normal limits at 1.6 Dysphagia -Speech therapy following -Patient indicates she feels food is getting caught in her esophagus -Speech therapy felt that she was not safe for an esophagram or barium swallow until EGD is performed and therefore gastroenterology has been consulted -EGD later today Debility -PT/OT following -Will likely need SNF at discharge End-stage renal disease -PD dependent--> temporary transition to hemodialysis at this time with possible complete transition to hemodialysis in the future depending on patient and family conversation with nephrology -Nephrology is following -peritoneal fluid growing staph species -Continue antibiotics per ID Hypothyroidism -Continue Synthroid CAD/hypertension/hyperlipidemia -Continue aspirin -Continue statin -Hold Coreg due to hypotension GERD -Continue PPI DM-2 -Continue sliding scale -Continue Lantus but increase from 14 units to 20 units daily--> first dose to be given tomorrow at 10 AM -Continue sliding scale insulin -Continue Accu-Cheks -Hold Actos while patient hospitalized History of asthma -Currently stable -Continue home Singulair -2 L nasal cannula with oxygen saturations at 94% -Continue nebs as needed -Patient will likely benefit from diuresis once blood pressure is able to tolerate fluid removal Glaucoma -Continue eyedrops Debility -Continue PT/OT -Anticipate possible placement being required at discharge Depression/anxiety -Continue home BuSpar -Would recommend follow-up with outpatient PCP for consideration of antidepressant as patient has been very tearful during her hospitalization DVT prophylaxis -Continue heparin SQ 3 times daily -Continue SCDs CODE STATUS -DNR CCA without intubation Charges/Coding Visit Charges Inpatient E&M: 04078 Subs Hosp L2
[2022-10-15 12:16] LABS: Pathologist Comment/Body Fluid Reviewed
[2022-10-15] MEDS: fentaNYL 100 MCG/2 ML Ampul 25 MCG IV (14:59)
--- NOTE | 2022-10-15 15:55 | RAD_ITS ---
INDICATION: Line placement EXAMINATION/TECHNIQUE: X-RAY - portable AP upright XR Chest 1 View COMPARISON: Portable AP upright chest x-ray October 11, 2022 FINDINGS: LINES/DEVICES: The right jugular central venous catheter seen on prior study has been removed. A larger caliber catheter is now seen entering from the base of the left neck, its tip near the cavoatrial junction. A small caliber PICC line has its tip in the right upper arm. Dual lead left subclavian cardiac pacemaker/AICD is unchanged. LUNGS: No consolidation or pulmonary edema. Some prominence of the medial basilar pulmonary vascular markings on today''s study may reflect a degree of crowding. Trace pleural reaction blunts the lateral left costophrenic sulcus. No pneumothorax. MEDIASTINUM AND CARDIOVASCULAR STRUCTURES: Cardiac silhouette size is upper normal to borderline enlarged. Central airways and mediastinal contour are unremarkable. There is stable atherosclerotic calcific plaquing of the thoracic arch and descending thoracic aorta. BONES AND SOFT TISSUES: Multilevel degenerative changes of the thoracic spine as well as degenerative arthrosis at the left glenohumeral articulation again noted. RAD/CXR for Line Placement IMPRESSION: 1. Prior right central venous catheter removed. New central venous line entering the left neck has its tip at the cavoatrial junction. No pneumothorax. 2. Tip of the small caliber PICC line is also seen in the right upper arm. Dual lead left subclavian cardiac pacemaker/AICD unchanged. 3. Heart remains borderline enlarged. No overt CHF. 4. There is subsegmental vascular crowding in the medial lung bases. Trace pleural reaction at the lateral left base. Electronically Signed: Ken David MD at 16:19 EDT Reading Location ID and State: [id number] / Unknown , Service support ,
--- NOTE | 2022-10-15 16:00 | PCM.OP.BLANK ---
Operative Report Date of Procedure: 10/15/22 Temporary hemodialysis catheter placement procedure note Indication: Hemodialysis Procedure: A time-out was completed to verify correct patient, indication, medication allergies, procedure, coagulation studies, informed consent signed, and equipment needed. The patient was placed in the supine position for a central line placement to the left IJ vein. The patients left neck was prepped using chlorhexidine and a full body sterile drape was applied. 1% lidocaine was used to anesthetize the surrounding skin. A 12fr 20 cm temporary hemodialysis catheter introduced into the internal jugular/subclavian/common femoral vein using the modified seldinger technique with the assistance of ultrasound. The catheter was threaded smoothly over the guidewire, the guidewire was removed easily, nonpulsatile blood returned. All ports were aspirated of air and flushed with sterile saline. The catheter was sutured in place and covered with an occlusive dressing impregnated with chlorhexidine. Post-procedure: The patient tolerated the procedure well. Vital signs remained stable. EBL 8 CC. No complications. Chest X Ray ordered and confirmed tip placement and the absence of pneumothorax. Procedures Hospitalists Procedures: 51220 Insert Non-tunnel CV Cath
[2022-10-15] MEDS: Dextrose 50%-Water 25 GM/50 ML DISP.SYRIN IV ×3 (16:20→22:00)
[2022-10-15 16:34] LABS: Bedside Glucose 56 mg/dL (74-106)
[2022-10-15] MEDS: PureFlow B 3K Dialysis Soln 1 BAG 6 BAG PF (16:40)
[2022-10-15] MEDS: 0.9% Normal Saline 1,000 ML IV.SOLN. 1000 ML OPERA.SITE (16:40)
[2022-10-15] MEDS: 0.9% Saline Lock 10 ML Syringe IV ×3 (16:47→22:00)
[2022-10-15 16:49] LABS: Bedside Glucose 72 mg/dL (74-106)
--- NOTE | 2022-10-15 16:59 | EX.PCM.PN.GI ---
Subjective Subjective Patient was not able to get off of Levophed at this time. And she still has not undergone hemodialysis. She is currently getting temporary hemodialysis catheter placed at the bedside. Objective Data Objective Data Vital Signs: Vital Signs Temp Pulse Resp BP Pulse Ox O2 Del Method O2 Flow Rate 98.1 F 70 14 121/48 H 96 Room Air 17 10/15/22 10:00 10/15/22 16:33 10/15/22 16:46 10/15/22 16:46 10/15/22 16:46 10/15/22 16:46 10/15/22 01:00 FiO2 2 10/14/22 01:00 Oxygen Flow Rate (L/min) 17 Oxygen Delivery Method Room Air Weight: 243 lb 9.773 oz Body Mass Index (BMI) 47.8 Intake & Output: Intake and Output for Last 24 Hours 10/13/22 10/14/22 10/15/22 23:59 23:59 23:59 Intake Total 1978.68 / 1979.63 366.61 / 372.21 473.10 / 473.10 Output Total 100 / 100 280 / 280 180 / 180 Balance 1878.68 / 1879.63 86.61 / 92.21 293.10 / 293.10 Lab / Micro Data 10/15/22 03:05 10/15/22 03:05 Labs: Laboratory Results - last 24 hr 10/12/22 12:50: Fl Pathologist Comment Reviewed 10/14/22 20:50: POC Glucose 143 H 10/15/22 03:05: WBC 7.5, RBC 2.34 L, Hgb 7.6 L, Hct 24.0 L, MCV 102.6 H, MCH 32.5 H, MCHC 31.7 L, RDW Std Deviation 64.2 H, RDW Coeff of Alanna 17.4 H, Plt Count 215, MPV 9.4, Immature Gran % (Auto) 2.700 H, Neut % (Auto) 64.9, Lymph % (Auto) 21.0, [place] % (Auto) 6.3, Eos % (Auto) 4.7, Baso % (Auto) 0.4, Absolute Neuts (auto) 4.9, Absolute Lymphs (auto) 1.57, Nucleated RBC % 0, Sodium 138, Potassium 3.5, Chloride 105, Carbon Dioxide 28.0, Anion Gap 5, BUN 32 H, Creatinine 5.21 H, Estim Creat Clear Calc 6.19, Est GFR (MDRD) Af Amer 10 L, Est GFR (MDRD) Non-Af 8 L, BUN/Creatinine Ratio 6.1 L, Glucose 182 H, Calcium 7.4 L, Phosphorus 3.5, Magnesium 1.6, Total Bilirubin 0.30, AST 27, ALT 20, Alkaline Phosphatase 73, Total Protein 4.8 L, Albumin 1.1 L, Globulin 3.7, Albumin/Globulin Ratio 0.3 L, Random Vancomycin 27.8 H 10/15/22 11:15: POC Glucose 87 10/15/22 16:12: POC Glucose 56 L 10/15/22 16:32: POC Glucose 72 L Micro: Microbiology 10/12/22 12:50 Fluid - Paracentesis (Abd) Gram Stain - Final 10/12/22 12:50 Fluid - Paracentesis (Abd) Body Fluid Culture - Final Coag Negative Staph 10/12/22 12:50 Fluid - Paracentesis (Abd) Anaerobic Culture - Preliminary Checking for anaerobes, further studies to follow. 10/11/22 13:30 Blood Culture (Wb) - Venous Blood Culture - Preliminary No growth in 48 hours. 10/11/22 12:45 Blood Culture (Wb) - Arm Right Blood Culture - Preliminary No growth in 48 hours. Radiography Diagnostic Testing: Radiology Impression Chest X-Ray 10/15/22 15:55 IMPRESSION: 1. Prior right central venous catheter removed. New central venous line entering the left neck has its tip at the cavoatrial junction. No pneumothorax. 2. Tip of the small caliber PICC line is also seen in the right upper arm. Dual lead left subclavian cardiac pacemaker/AICD unchanged. 3. Heart remains borderline enlarged. No overt CHF. 4. There is subsegmental vascular crowding in the medial lung bases. Trace pleural reaction at the lateral left base. Electronically Signed: Ken David MD at 16:19 EDT Reading Location ID and State: [id number] / Unknown , Service support , Rhythm Strip Ectopy: - (Majority paced) Physical Exam Const alert, oriented x3 and well nourished; Negative for average body habitus or healthy appearing Constitutional Narrative: Pleasant HEENT head/scalp atraumatic HEENT Narrative: Mallampati 3, no thrush Head and Scalp: normocephalic Resp normal respiratory effort, no retractions, no use of accessory muscles and clear to auscultation bilaterally Auscultation: Negative for rales, rhonchi or wheezes Cardio regular rate, regular rhythm, S1 normal heart sound, S2 normal heart sound, no murmurs, no rub, no gallops and no clicks GI normal to inspection, nondistended, normoactive bowel sounds and soft to palpation GI Narrative: Mild diffuse tenderness Extremity Extremity Narrative: Scattered ecchymosis bilateral lower extremities with 1+ pitting edema, no cyanosis or clubbing Neuro oriented x3, moves all extremities and no focal motor deficits Neuro Narrative: Significant generalized weakness and with no focal deficits Speech: speech normal Psych Psych Narrative: Affect is flat and mood seems depressed however appropriate for the current medical situation Assessment & Plan Assessment/Plan (1) Dysphagia: QUALIFIERS: Dysphagia type: oral phase Qualified Code(s): R13.11 - Dysphagia, oral phase PLAN: She will undergo an upper endoscopy to evaluate the GI tract. Differential diagnosis does include esophageal candidiasis, eosinophilic esophagitis, esophageal web, esophageal stricture secondary to erosive esophagitis of bile induced gastritis in the setting of possible hiatal hernia. There is possible dilation that could be done if this is a mechanical problem. This is less likely an esophageal motor disorder. Although that is on the differential diagnosis and patient with diabetes. She was explained alternatives, risk, benefits include not withstanding bleeding, infection, sepsis, perforation, need for emergent surgery . She will have an ASA of 3. 7/18: Her upper endoscopy was on hold today due to persistent hypotension, need for hemodialysis. We will put the patient on for tomorrow. Charges/Coding Visit Charges Inpatient E&M: 45907 Subs Hosp L3
[2022-10-15] MEDS: Heparin 10,000 UNITS/10 ML Vial IV (17:58)
[2022-10-15] MEDS: Montelukast 10 MG Tablet PO (21:16)
[2022-10-15] MEDS: Latanoprost 0.005% 1 Bottle 1 DRP EACH EYE (21:17)
[2022-10-15] MEDS: Atorvastatin Calcium 80 MG Tablet PO (21:17)
[2022-10-15] MEDS: Acetaminophen 325 MG Tablet 650 MG PO (21:19)
[2022-10-15 21:40] LABS: Bedside Glucose 49 mg/dL (74-106)
--- NOTE | 2022-10-15 22:30 | NURSING ---
Dressing over patient's left IJ coming off of site. Blood noted under dressing. New dressing applied. Cleaned site with chloraprep, applied gauze for pressure, op-site IV 3000.
[2022-10-15 23:29] LABS: Bedside Glucose 99 mg/dL (74-106)
[2022-10-16] VITALS (58 sets, daily range): BP systolic 72–180; BP diastolic 32–99; PULSE 70–113; RESP 13–22; TEMP 36–36.7; O2SAT 90–100; BMI 45.8; BMI 44.3
--- NOTE | 2022-10-16 | NURSING ---
Patient bleeding from left IJ. Dressing was soaked and blood seeping out from under dressing. Old dressing removed, site cleaned with chloraprep. Pressure dressing applied with gauze and 2 op-site IV 3000. Sandbag placed over site for added pressure. Will continue to monitor
[2022-10-16 04:03] LABS: Absolute Lymphocyte Count 1.97 X10^3/uL (0.83-4.51); Absolute Neutrophil Count 7.7 X10^3/uL (2.0-7.7); Basophil# 0.05 X10^3/uL; Basophil% 0.5 % (0-1); Eosinophil# 0.29 X10^3/uL; Eosinophils% 2.7 % (0-5); Hematocrit 27.3 % (37-47); Hemoglobin 8.3 g/dL (12.0-15.0); Lymphocyte # 1.97 X10^3/ul (0.83-4.51); Mean Corp Hgb Conc 30.4 g/dL (32-36); Mean Corpuscular Hgb 32.2 pg (27.0-32.0); Mean Corpuscular Volume 105.8 fL (81-99); Mean Platelet Vol. 9.9 fl (6.2-12.0); Monocyte# 0.63 X10^3/uL; Monocyte% 5.8 % (0-10); NRBC Flagged by Analyzer 0 % (0-5); Neutrophil # 7.74 X10^3/uL (2.7-7.7); Neutrophil % 70.6 % (47-70); POSITIVE MORPHOLOGY YES; Platelet Count 227 K/mm3 (150-450); RBC Distribution Width CV 18.1 % (11.6-14.6); Red Blood Count 2.58 M/mm3 (4.2-5.4); White Blood Count 10.9 K/mm3 (4.4-11.0)
[2022-10-16 04:11] LABS: Differential Indicated SCAN CRITERIA MET
[2022-10-16 04:16] LABS: International Normalized Ratio 0.9; Prothrombin Time (Protime)PT. 12.3 SECONDS (11.7-14.9)
[2022-10-16 04:22] LABS: Anion Gap 6 (5-15); BUN 27 mg/dL (7-18); BUN/Creat Ratio 5.6 RATIO (10-20); Chloride 106 mmol/L (98-107); Creatinine, Serum 4.81 mg/dL (0.55-1.02); EST Glomerular Filtration Rate 9 mL/min (>60); Est Glom Filt Rate - Afr Amer 11 mL/min (>60); Glucose 80 mg/dL (74-106); Potassium 3.9 mmol/L (3.5-5.1); Sodium Level 138 mmol/L (136-145)
[2022-10-16 04:32] LABS: Anisocytosis 1+; Differential Comment SCANNED; Hypochromasia 1+; Macrocytosis 1+
[2022-10-16] MEDS: Heparin Injection (Vial) 5,000 UNIT/ML VIAL 5000 UNIT SC ×2 (06:41→21:42)
[2022-10-16] MEDS: Levothyroxine 137 MCG Tablet PO (06:41)
[2022-10-16] MEDS: 0.9% Saline Lock 10 ML Syringe IV ×4 (06:44→17:21)
[2022-10-16] MEDS: Dextrose 50%-Water 25 GM/50 ML DISP.SYRIN IV (06:47)
--- NOTE | 2022-10-16 07:02 | PN.CC_ITS ---
Assessment & Plan Assessment/Plan (1) Septic shock: PLAN: Plan RECOMMENDATIONS: 1. Continue dialysis with volume removal if possible 2. Continue vasopressor support to maintain mean arterial pressure at or above 65 mmHg. 3. Await EGD prior to p.o. intake. 4. Attempt volume removal, but may need Surgicel on IJ site 5. Continue Accu-Cheks and sliding scale insulin. Hold basal insulin IMPRESSIONS: 1. Septic shock secondary to bacterial peritonitis Peritoneal cultures are now showing coag negative staph. This appears to be a repeat infection from July. Patient was treated with 14 days of vancomycin at that time. Patient has not had very good volume removal with peritoneal dialysis in the setting. Clinical suspicion is patient will not be able to come off of pressors until adequate clearance is obtained. Okay to continue with conventional dialysis from my perspective. Patient on minimal pressors and this could be provided peripherally. Plan to continue vasopressor support to maintain mean arterial pressure at or above 65 mmHg. 2. Syncope Clinical suspicion that this was secondary to decreased intravascular volume secondary to problem #1. Patient does have a upper airway wheeze at this time, but this is likely secondary to fluid overload. Patient does appear to have some anasarca at this time. 3. History of chronic kidney disease on peritoneal dialysis Nephrology is following to assist with medical management. 4. Morbid obesity/hyperlipidemia/hypertension/hypothyroidism/diabetes mellitus/dysphagia Complicates care, management, recovery and prognosis. Continue supportive measures as noted above. Continue Accu-Cheks and sliding scale insulin coverage. Basal insulin held given n.p.o. status. Patient to have an EGD today Addendum 2:13 PM: Asked by GI to provide conscious sedation for upper endoscopy secondary to dysphagia. Physical exam had not changed from prior in the day. At 1:59 PM, the patient was given 30 mg of propofol with appropriate response. The entire procedure took just over 1 minute and no obvious obstructions or webs were noted. Patient was reassessed 5 minutes later and had no recollection of the procedure and tolerated well. No significant hypotension was noted. TIME: 37 minutes of critical care time, independent of procedures, was spent addressing the patient's septic shock, syncope, review of all data and collaboration with the care team. Subjective Subjective Patient did okay overnight. Patient subjectively is starting to have an appetite. Patient did have her Lantus held yesterday, but had a hypoglycemic episode overnight requiring D50. Patient was able to have some dialysis yesterday evening, but exact removal is unclear at this time. Documentation is suggesting approximately 2 L removed. Patient did have some oozing from the site that was treated conservatively. Objective Data Objective Data Vital Signs: Vital Signs Temp Pulse Resp BP Pulse Ox O2 Del Method O2 Flow Rate 36.2 C L 75 20 H 116/64 92 Room Air 17 10/16/22 05:00 10/16/22 06:00 10/16/22 06:00 10/16/22 06:00 10/16/22 06:00 10/16/22 06:00 10/15/22 01:00 FiO2 2 10/14/22 01:00 Oxygen Flow Rate (L/min) 17 Oxygen Delivery Method Room Air Weight: 105.8 kg Body Mass Index (BMI) 45.8 Intake & Output: Intake and Output for Last 24 Hours 10/14/22 10/15/22 10/16/22 23:59 23:59 23:59 Intake Total 366.61 / 372.21 541.82 / 547.45 159.66 / 159.66 Output Total 280 / 280 3680 / 3680 0 / 0 Balance 86.61 / 92.21 -3138.18 / -3132.55 159.66 / 159.66 Lab / Micro Data Attestation: I reviewed the patient's lab results. 10/16/22 03:45 10/16/22 03:45 Labs: Laboratory Results - last 24 hr 10/12/22 12:50: Fl Pathologist Comment Reviewed 10/15/22 11:15: POC Glucose 87 10/15/22 16:12: POC Glucose 56 L 10/15/22 16:32: POC Glucose 72 L 10/15/22 21:14: POC Glucose 49 L 10/15/22 23:10: POC Glucose 99 10/16/22 03:45: WBC 10.9, RBC 2.58 L, Hgb 8.3 L, Hct 27.3 L, MCV 105.8 H, MCH 32.2 H, MCHC 30.4 L, RDW Std Deviation 69.0 H, RDW Coeff of Alanna 18.1 H, Plt Count 227, MPV 9.9, Immature Gran % (Auto) 2.400 H, Neut % (Auto) 70.6 H, Lymph % (Auto) 18.0 L, [place] % (Auto) 5.8, Eos % (Auto) 2.7, Baso % (Auto) 0.5, Absolute Neuts (auto) 7.7, Absolute Lymphs (auto) 1.97, Nucleated RBC % 0, Differential Comment SCANNED, Hypochromasia 1+, Anisocytosis 1+, Macrocytosis 1+, PT 12.3, INR 0.9, Sodium 138, Potassium 3.9, Chloride 106, Carbon Dioxide 26.0, Anion Gap 6, BUN 27 H, Creatinine 4.81 H, Estim Creat Clear Calc 6.70, Est GFR (MDRD) Af Amer 11 L, Est GFR (MDRD) Non-Af 9 L, BUN/Creatinine Ratio 5.6 L, Glucose 80, Calcium 8.0 L Micro: Microbiology 10/12/22 12:50 Fluid - Paracentesis (Abd) Gram Stain - Final 10/12/22 12:50 Fluid - Paracentesis (Abd) Body Fluid Culture - Final Coag Negative Staph 10/12/22 12:50 Fluid - Paracentesis (Abd) Anaerobic Culture - Preliminary Checking for anaerobes, further studies to follow. 10/11/22 13:30 Blood Culture (Wb) - Venous Blood Culture - Preliminary No growth in 48 hours. 10/11/22 12:45 Blood Culture (Wb) - Arm Right Blood Culture - Preliminary No growth in 48 hours. Radiography Diagnostic Testing: Radiology Impression Chest X-Ray 10/15/22 15:55 IMPRESSION: 1. Prior right central venous catheter removed. New central venous line entering the left neck has its tip at the cavoatrial junction. No pneumothorax. 2. Tip of the small caliber PICC line is also seen in the right upper arm. Dual lead left subclavian cardiac pacemaker/AICD unchanged. 3. Heart remains borderline enlarged. No overt CHF. 4. There is subsegmental vascular crowding in the medial lung bases. Trace pleural reaction at the lateral left base. Electronically Signed: Ken David MD at 16:19 EDT Reading Location ID and State: [id number] / Unknown , Service support , Rhythm Strip Ectopy: - (Majority paced) Physical Exam Const alert and no apparent distress Constitutional Narrative: Anasarca General Appearance: cooperative HEENT normocephalic, head/scalp atraumatic and moist oral mucous membranes HEENT Narrative: Some oozing noted from left HD site Eyes PERRL, EOMs intact bilaterally and conjunctivae normal Neck supple General: trachea midline and CVC in place Chest inspection of chest normal Resp normal respiratory effort Auscultation: diminished lung sounds; Negative for rales, rhonchi or wheezes Cardio regular rate, regular rhythm, no murmurs, no rub and no gallops GI normal to inspection, nondistended, normoactive bowel sounds Extremity Extremity Narrative: Right upper arm PICC General Extremity: edema; Negative for clubbing Skin no rashes or lesions noted Neuro CN's II-XII intact bilaterally, moves all extremities and no focal motor deficits Psych cooperative and affect normal Charges/Coding Procedures Hospitalists Procedures: 34639 Critial Care 1st Hr
[2022-10-16] MEDS: Ipratropium 0.5 MG/2.5 ML SOLUTION INHALATION ×3 (07:04→19:16)
[2022-10-16] MEDS: Budesonide Respules 0.5 MG/2 ML AMPUL.NEB. INHALATION ×2 (07:04→19:16)
[2022-10-16] MEDS: Midodrine HCl 5 MG Tablet 10 MG PO ×3 (07:55→17:21)
[2022-10-16 08:19] LABS: Bedside Glucose 54 mg/dL (74-106)
[2022-10-16 08:22] LABS: Bedside Glucose 114 mg/dL (74-106)
--- NOTE | 2022-10-16 08:49 | PCM.PN.REN ---
Subjective Subjective Resting in bed. Reports feeling better today. No overnight events. Objective Data Objective Data Vital Signs: Vital Signs Temp Pulse Resp BP Pulse Ox O2 Del Method O2 Flow Rate 97.1 F L 75 15 112/96 H 90 Room Air 17 10/16/22 05:00 10/16/22 07:05 10/16/22 07:05 10/16/22 07:00 10/16/22 07:05 10/16/22 07:05 10/15/22 01:00 FiO2 2 10/14/22 01:00 Oxygen Flow Rate (L/min) 17 Oxygen Delivery Method Room Air Weight: 105.8 kg Body Mass Index (BMI) 45.8 Intake & Output: Intake and Output for Last 24 Hours 10/14/22 10/15/22 10/16/22 23:59 23:59 23:59 Intake Total 366.61 / 372.21 541.82 / 547.45 169.06 / 169.06 Output Total 280 / 280 3680 / 3680 0 / 0 Balance 86.61 / 92.21 -3138.18 / -3132.55 169.06 / 169.06 Lab / Micro Data 10/16/22 03:45 10/16/22 03:45 Labs: Laboratory Results - last 24 hr 10/12/22 12:50: Fl Pathologist Comment Reviewed 10/15/22 11:15: POC Glucose 87 10/15/22 16:12: POC Glucose 56 L 10/15/22 16:32: POC Glucose 72 L 10/15/22 21:14: POC Glucose 49 L 10/15/22 23:10: POC Glucose 99 10/16/22 03:45: WBC 10.9, RBC 2.58 L, Hgb 8.3 L, Hct 27.3 L, MCV 105.8 H, MCH 32.2 H, MCHC 30.4 L, RDW Std Deviation 69.0 H, RDW Coeff of Alanna 18.1 H, Plt Count 227, MPV 9.9, Immature Gran % (Auto) 2.400 H, Neut % (Auto) 70.6 H, Lymph % (Auto) 18.0 L, [place] % (Auto) 5.8, Eos % (Auto) 2.7, Baso % (Auto) 0.5, Absolute Neuts (auto) 7.7, Absolute Lymphs (auto) 1.97, Nucleated RBC % 0, Differential Comment SCANNED, Hypochromasia 1+, Anisocytosis 1+, Macrocytosis 1+, PT 12.3, INR 0.9, Sodium 138, Potassium 3.9, Chloride 106, Carbon Dioxide 26.0, Anion Gap 6, BUN 27 H, Creatinine 4.81 H, Estim Creat Clear Calc 6.70, Est GFR (MDRD) Af Amer 11 L, Est GFR (MDRD) Non-Af 9 L, BUN/Creatinine Ratio 5.6 L, Glucose 80, Calcium 8.0 L 10/16/22 06:42: POC Glucose 54 L 10/16/22 08:03: POC Glucose 114 H Micro: Microbiology 10/12/22 12:50 Fluid - Paracentesis (Abd) Gram Stain - Final 10/12/22 12:50 Fluid - Paracentesis (Abd) Body Fluid Culture - Final Coag Negative Staph 10/12/22 12:50 Fluid - Paracentesis (Abd) Anaerobic Culture - Final No anaerobic bacteria isolated. 10/11/22 13:30 Blood Culture (Wb) - Venous Blood Culture - Preliminary No growth in 48 hours. 10/11/22 12:45 Blood Culture (Wb) - Arm Right Blood Culture - Preliminary No growth in 48 hours. Radiography Diagnostic Testing: Radiology Impression Chest X-Ray 10/15/22 15:55 IMPRESSION: 1. Prior right central venous catheter removed. New central venous line entering the left neck has its tip at the cavoatrial junction. No pneumothorax. 2. Tip of the small caliber PICC line is also seen in the right upper arm. Dual lead left subclavian cardiac pacemaker/AICD unchanged. 3. Heart remains borderline enlarged. No overt CHF. 4. There is subsegmental vascular crowding in the medial lung bases. Trace pleural reaction at the lateral left base. Electronically Signed: Ken David MD at 16:19 EDT Reading Location ID and State: [id number] / Unknown , Service support , Rhythm Strip Ectopy: - (Majority paced) Physical Exam Narrative General: Alert and oriented x3, NAD. Neck: Supple, no JVD. Cardiovascular: Normal S1, S2. No rubs, murmurs, or gallops. Respiratory: Lungs are diminished breath sounds posterior bases; no wheezes, rhonchi or rales noted Abdomen: Normal bowel sounds, soft, slightly tender to palpation. Examined exit site from around PD catheter/dressing, no redness, no drainage, no crusting Extremities: pitting edema b/l legs, thighs, arms. edema to lower abdomen Nontunneled temporary left IJ dialysis catheter dressing clean, dry and intact Assessment & Plan Assessment/Plan (1) ESRD on peritoneal dialysis: (2) Septic shock: (3) Peritonitis associated with peritoneal dialysis: QUALIFIERS: Encounter type: initial encounter Qualified Code(s): T85.71XA - Infection and inflammatory reaction due to peritoneal dialysis catheter, initial encounter PLAN: Plan Impression/Plan: The patient is a 82-year-old woman with past history of ESRD, type 2 diabetes mellitus, hypertension, CAD, heart failure with preserved ejection fraction, PAD, hypothyroidism, and hyperlipidemia. The patient presented to the hospital on 10/11/2022 with syncope and was diagnosed with circulatory shock requiring IV vasopressor and volume expansion. - ESRD on PD support; outpatient EDW was 93 kg. Past few nights we had been using all 2.5% PD dianeal and there has been no UF with last couple PD cycles but in fact +200ml. Patient is net positive fluid in hospital. Peak weight around 110 kg. Patient is remaining on levophed 4-5 mcg/hr. patient underwent first hemodialysis session on 10/15 and tolerated around 1.8 L fluid removal. We will plan for dialysis again today over 3 hours and attempt around 3 L fluid removal. Can increase Levophed if needed to maintain adequate blood pressure for fluid removal. Likely will plan for dialysis again on and Friday as patient is hypervolemic and attempt to remove fluid as blood pressures allow. Discussed plan with patient. She is in agreement. We will stop PhosLo (patient not eating and last phosphorus 3.5) and will stop potassium supplement. Monitor potassium and phosphorus trends. CT A/P: Peritoneal dialysis catheter seen in right side of lower pelvis. - PD related peritonitis. PD effluent cell count from 10/12 was 3383 WBC with 75% neutrophil on differential. PD culture from 10/12/2022 coag negative staph; blood cultures negative to date. ID following, patient has been on vancomycin and Zosyn. Patient has been afebrile last few days. Now on cefazolin. Trying to obtain pd fluid so to repeat pd cell count and cx - seen by GI for dysphagia possibly planning for EGD today.
[2022-10-16] MEDS: PureFlow B 3K Dialysis Soln 1 BAG 6 BAG PF (09:38)
[2022-10-16] MEDS: 0.9% Normal Saline 1,000 ML IV.SOLN. 1000 ML OPERA.SITE (09:41)
[2022-10-16 11:44] LABS: Body Fluid Mononuclear WBC # 0.408 10^3/uL; Body Fluid Polynuclear WBC # 0.334 10^3/uL; Body Fluid Total Cells Counted 0.749 10^3/ul; White Blood Count/Body Fluid 0.742 10^3/uL
[2022-10-16 11:46] LABS: Appearance/Body Fluid CLEAR; Auto B Fluid Analyzer BKGD Ct COUNTS W/IN LIMITS (W/IN LIMITS); Color/Body Fluid YELLOW; Source- Body Fluid PERITONEAL FLUID
[2022-10-16] MEDS: Heparin 10,000 UNITS/10 ML Vial IV (11:54)
[2022-10-16 11:57] LABS: Body Fluid QC Type(s) BF4; Red Cell Count/Body Fluid 10 /mm3
[2022-10-16 12:22] LABS: Bedside Glucose 79 mg/dL (74-106)
[2022-10-16] MEDS: Cefazolin 1 GM/50 ML BAG IV (12:24)
[2022-10-16 12:33] LABS: Lymphocytes 54 %; Monocytes 3 %; Neutrophil (Segs) 43 %
--- NOTE | 2022-10-16 13:41 | PN.HOSP_ITS ---
Reason for Visit Reason for Visit: Syncope Subjective Subjective Patient states she is feeling much better today. Had dialysis yesterday and 1.7 L removed. Plan is for dialysis again today with 3 L removal. Will have dialysis daily this week as she is considerably over her dry weight. Remains on Levophed at 5 mcg/min. EGD later today. It had to be postponed yesterday due to scheduling issues. Patient is anxious to eat. Objective Data Objective Data Vital Signs: Vital Signs Temp Pulse Resp BP Pulse Ox O2 Del Method O2 Flow Rate 97.2 F L 70 18 120/41 L 99 Room Air 17 10/16/22 12:16 10/16/22 13:00 10/16/22 13:00 10/16/22 13:00 10/16/22 13:00 10/16/22 13:00 10/15/22 01:00 FiO2 2 10/14/22 01:00 Oxygen Flow Rate (L/min) 17 Oxygen Delivery Method Room Air Weight: 102.4 kg Body Mass Index (BMI) 44.3 Intake & Output: Intake and Output for Last 24 Hours 10/14/22 10/15/22 10/16/22 23:59 23:59 23:59 Intake Total 366.61 / 372.21 541.82 / 547.45 411.49 / 411.49 Output Total 280 / 280 3680 / 3680 3400 / 3400 Balance 86.61 / 92.21 -3138.18 / -3132.55 -2988.51 / -2988.51 Lab / Micro Data 10/16/22 03:45 10/16/22 03:45 Labs: Laboratory Results - last 24 hr 10/15/22 16:12: POC Glucose 56 L 10/15/22 16:32: POC Glucose 72 L 10/15/22 21:14: POC Glucose 49 L 10/15/22 23:10: POC Glucose 99 10/16/22 03:45: WBC 10.9, RBC 2.58 L, Hgb 8.3 L, Hct 27.3 L, MCV 105.8 H, MCH 32.2 H, MCHC 30.4 L, RDW Std Deviation 69.0 H, RDW Coeff of Alanna 18.1 H, Plt Count 227, MPV 9.9, Immature Gran % (Auto) 2.400 H, Neut % (Auto) 70.6 H, Lymph % (Auto) 18.0 L, [place] % (Auto) 5.8, Eos % (Auto) 2.7, Baso % (Auto) 0.5, Absolute Neuts (auto) 7.7, Absolute Lymphs (auto) 1.97, Nucleated RBC % 0, Differential Comment SCANNED, Hypochromasia 1+, Anisocytosis 1+, Macrocytosis 1+, PT 12.3, INR 0.9, Sodium 138, Potassium 3.9, Chloride 106, Carbon Dioxide 26.0, Anion Gap 6, BUN 27 H, Creatinine 4.81 H, Estim Creat Clear Calc 6.70, Est GFR (MDRD) Af Amer 11 L, Est GFR (MDRD) Non-Af 9 L, BUN/Creatinine Ratio 5.6 L, Glucose 80, Calcium 8.0 L 10/16/22 06:42: POC Glucose 54 L 10/16/22 08:03: POC Glucose 114 H 10/16/22 11:00: Fluid Source PERITONEAL FLUID, Fluid Color YELLOW, Fluid Appe arance CLEAR, Fluid WBC 0.742, Fluid RBC 10, Fluid Tot Cell Count 0.749 H, Fld Polynuclear WBCs # 0.334, Fld Polynuclear WBCs % 45.0, Fluid Mononuclear WBCs 0.408, Fld Mononuclear WBCs % 55.0, Fluid Neutrophils 43, Fluid Lymphocytes 54, Fluid Monocytes 3, Fl Pathologist Comment May follow, Fluid Comment 2 SEE COMMENT 10/16/22 12:04: POC Glucose 79 Micro: Microbiology 10/16/22 11:00 Fluid - Peritoneal Gram Stain - Final 10/11/22 12:45 Blood Culture (Wb) - Arm Right Blood Culture - Final No growth in 5 days. 10/12/22 12:50 Fluid - Paracentesis (Abd) Gram Stain - Final 10/12/22 12:50 Fluid - Paracentesis (Abd) Body Fluid Culture - Final Coag Negative Staph 10/12/22 12:50 Fluid - Paracentesis (Abd) Anaerobic Culture - Final No anaerobic bacteria isolated. 10/11/22 13:30 Blood Culture (Wb) - Venous Blood Culture - Preliminary No growth in 48 hours. Radiography Diagnostic Testing: Radiology Impression Chest X-Ray 10/15/22 15:55 IMPRESSION: 1. Prior right central venous catheter removed. New central venous line entering the left neck has its tip at the cavoatrial junction. No pneumothorax. 2. Tip of the small caliber PICC line is also seen in the right upper arm. Dual lead left subclavian cardiac pacemaker/AICD unchanged. 3. Heart remains borderline enlarged. No overt CHF. 4. There is subsegmental vascular crowding in the medial lung bases. Trace pleural reaction at the lateral left base. Electronically Signed: Ken David MD at 16:19 EDT Reading Location ID and State: [id number] / Unknown , Service support , Rhythm Strip Ectopy: - (Majority paced) Physical Exam Const alert, oriented x3 and well nourished; Negative for average body habitus or healthy appearing Constitutional Narrative: Morbidly obese, chronically ill-appearing white female, lying in bed, appears comfortable at this time, appears as if she is feeling better today, appears nontoxic, watching television and using her cell phone HEENT head/scalp atraumatic and moist oral mucous membranes HEENT Narrative: Mallampati 3, no thrush Head and Scalp: normocephalic Neck Neck Narrative: Dialysis catheter in place with oozing at site Resp normal respiratory effort, no retractions, no use of accessory muscles and clear to auscultation bilaterally Auscultation: Negative for rales, rhonchi or wheezes Cardio regular rate, regular rhythm, S1 normal heart sound, S2 normal heart sound, no murmurs, no rub, no gallops and no clicks GI normal to inspection, nondistended, normoactive bowel sounds and soft to palpation GI Narrative: Mild diffuse tenderness Extremity Extremity Narrative: Scattered ecchymosis bilateral lower extremities with 1+ pitting edema, no cyanosis or clubbing Neuro oriented x3, moves all extremities and no focal motor deficits Neuro Narrative: Significant generalized weakness and with no focal deficits Speech: speech normal Psych Psych Narrative: Mood and affect are much brighter today Assessment & Plan Assessment/Plan (1) Septic shock: (2) Peritonitis associated with peritoneal dialysis: QUALIFIERS: Encounter type: initial encounter Qualified Code(s): T85.71XA - Infection and inflammatory reaction due to peritoneal dialysis catheter, initial encounter (3) Hypokalemia: (4) Hyperglycemia: (5) Dysphagia: QUALIFIERS: Dysphagia type: oral phase Qualified Code(s): R13.11 - Dysphagia, oral phase PLAN: Plan Septic shock secondary to peritoneal dialysis catheter induced bacterial peritonitis -Cultures currently showing coag negative staph -Blood cultures negative -Continue cefazolin per ID recommendations -Remains on Levophed at 5 mics per minute -Wean as able to keep MAP greater than 65 -Continue midodrine 10 mg p.o. 3 times daily -ID following-appreciate input -Nephro is following-appreciate input -Critical care medicine is following-appreciate input Dysphagia -Speech therapy following -Patient indicates she feels food is getting caught in her esophagus -Speech therapy felt that she was not safe for an esophagram or barium swallow until EGD is performed and therefore gastroenterology has been consulted -EGD later today--> canceled yesterday due to persistent hypotension and need for dialysis Debility -PT/OT following -Will need SNF at discharge End-stage renal disease -PD dependent--> patient might be willing to transition to hemodialysis at [facility] emergency department per discussion with nephrology today -Nephrology is following -peritoneal fluid growing staph species -Continue antibiotics per ID -Possible removal of peritoneal catheter if patient is going to have ongoing hemodialysis in the future -Patient is considerably above her dry weight--> approximately 20 kg Hypothyroidism -Continue Synthroid CAD/hypertension/hyperlipidemia -Continue aspirin -Continue statin -Hold Coreg due to hypotension GERD -Continue PPI Chronic anemia secondary to renal disease -hemoglobin stable DM-2 -Continue sliding scale -Hold Lantus as patient had some hypoglycemia yesterday -A.m. fasting blood sugars 80 -Continue sliding scale insulin -Continue Accu-Cheks -Hold Actos while patient hospitalized History of asthma -Currently stable -Continue home Singulair - stable on room air -Continue nebs as needed Glaucoma -Continue eyedrops Debility -Continue PT/OT -Anticipate possible placement being required at discharge Depression/anxiety -Continue home Wellbutrin DVT prophylaxis -Continue heparin SQ 3 times daily CODE STATUS -DNR CCA without intubation Charges/Coding Visit Charges Inpatient E&M: 97110 Subs Hosp L2
[2022-10-16] MEDS: Propofol 200 MG/20 ML Vial 30 MG IV BOLUS (13:59)
--- NOTE | 2022-10-16 13:59 | NURSING ---
Dr. Montgomery and endo staff at bedside, Propofol 30 [address] Zuniga at 1359 for EGD.
[2022-10-16] MEDS: Senna/Docusate Sodium 1 Tablet 2 TABLET PO (14:56)
[2022-10-16 16:32] LABS: Bedside Glucose 49 mg/dL (74-106)
[2022-10-16] MEDS: Gabapentin 100 MG Capsule PO (17:21)
--- NOTE | 2022-10-16 17:58 | OP.EGD_ITS ---
Patient Name: Chalino Banegas Procedure Date: 10/16/2022 1:51 PM Date of : 1940 Age: 82 Procedure: Upper GI endoscopy Indications: Dysphagia Providers: Camilo Montgomery DO Medicines: Monitored Anesthesia Care Patient Profile: This is an 82 year old female. Refer to note in patient chart for documentation of history and physical. Patient has symptoms of dysphagia with both liquids and solids. Complications: No immediate complications. Procedure: Pre-Anesthesia Assessment: - Prior to the procedure, a History and Physical was performed, and patient medications and allergies were reviewed. The risks and benefits of the procedure and the sedation options and risks were discussed with the patient. All questions were answered and informed consent was obtained. Patient identification and proposed procedure were verified by the physician. Mental Status Examination: normal. Prophylactic Antibiotics: The patient does not require prophylactic antibiotics. Prior Anticoagulants: The patient has taken no previous anticoagulant or antiplatelet agents. ASA Grade Assessment: II - A patient with mild systemic disease. After reviewing the risks and benefits, the patient was deemed in satisfactory condition to undergo the procedure. The anesthesia plan was to use monitored anesthesia care (MAC). Immediately prior to administration of medications, the patient was re-assessed for adequacy to receive sedatives. The heart rate, respiratory rate, oxygen saturations, blood pressure, adequacy of pulmonary ventilation, and response to care were monitored throughout the procedure. The physical status of the patient was re-assessed after the procedure. After obtaining informed consent, the endoscope was passed under direct vision. Throughout the procedure, the patient's blood pressure, pulse, and oxygen saturations were monitored continuously. The gastroscope was introduced through the mouth, and advanced to the second part of duodenum. The upper GI endoscopy was accomplished without difficulty. The patient tolerated the procedure well. Scope In: 2:00:01 PM Scope Out: 2:01:08 PM Total Procedure Duration Time 0 hours 1 minute 7 seconds Findings: The examined esophagus was normal. A small hiatal hernia was present. No gross lesions were noted in the entire examined stomach. The first portion of the duodenum was normal. Impression: - Normal esophagus. - Small hiatal hernia. - No gross lesions in the stomach. - Normal first portion of the duodenum. - No specimens collected. Recommendation: - Return patient to [facility] for ongoing care. - Diet per speech therapy. - Continue present medications. Procedure Code(s): --- Professional --- 06264, Esophagogastroduodenoscopy, flexible, transoral; diagnostic, including collection of specimen(s) by brushing or washing, when performed (separate procedure) CPT copyright 2017 [employer]. All rights reserved. The codes documented in this report are preliminary and upon early childhood aide classroom review may be revised to meet current compliance requirements. Camilo Montgomery DO 10/16/2022 5:57:59 PM This report has been signed electronically. Number of Addenda: 0 Note Initiated On: 10/16/2022 1:51 PM
--- NOTE | 2022-10-16 17:59 | OP.CCLET_ITS ---
10/16/2022 Satnam Saldana MD Re : Upper GI endoscopy procedure for Chalino Banegas Dear Dr. Saldana This procedure was performed on Sunday, October 16, 2022. My impressions and recommendations are as follows: Impressions : - Normal esophagus. - Small hiatal hernia. - No gross lesions in the stomach. - Normal first portion of the duodenum. - No specimens collected. Recommendations : - Return patient to [facility] for ongoing care. - Diet per speech therapy. - Continue present medications. My findings are described in the full procedure note, which is enclosed. If I can be of further assistance, please feel free to contact me at . Sincerely, Camilo Montgomery, 10/16/2022 5:57:59 PM This report has been signed electronically.
[2022-10-16] MEDS: Montelukast 10 MG Tablet PO (21:41)
[2022-10-16] MEDS: buPROPion 100 MG Tablet PO (21:41)
[2022-10-16] MEDS: Atorvastatin Calcium 80 MG Tablet PO (21:42)
[2022-10-16] MEDS: Latanoprost 0.005% 1 Bottle 1 DRP EACH EYE (21:42)
[2022-10-16 22:09] LABS: Bedside Glucose 127 mg/dL (74-106)
[2022-10-17] VITALS (41 sets, daily range): BP systolic 82–193; BP diastolic 3–108; PULSE 70–77; RESP 12–21; TEMP 35.8–36.8; O2SAT 84–100; BMI 45.7; BMI 44.0
[2022-10-17 03:46] LABS: ALB/GLOB Ratio 0.4 RATIO (0.9-2.4); AST(SGOT) 35 U/L (15-37); Alanine Aminotransfer ALT/SGPT 16 U/L (13-56); Albumin, Serum 1.2 g/dL (3.2-5.0); Alkaline Phosphatase 83 U/L (45-117); Anion Gap 6 (5-15); BUN 24 mg/dL (7-18); BUN/Creat Ratio 5.5 RATIO (10-20); Calcium,Total 7.5 mg/dL (8.5-10.1); Chloride 106 mmol/L (98-107); Creatinine, Serum 4.35 mg/dL (0.55-1.02); EST Glomerular Filtration Rate 10 mL/min (>60); Est Glom Filt Rate - Afr Amer 13 mL/min (>60); Estimated Creatinine Clearance 7.41 ml/min; Globulin 3.4 g/dL (2.2-4.2); Glucose 143 mg/dL (74-106); Potassium 4.2 mmol/L (3.5-5.1); Protein, Total 4.6 g/dL (6.4-8.2); Sodium Level 138 mmol/L (136-145)
[2022-10-17 05:06] LABS: Absolute Lymphocyte Count 2.18 X10^3/uL (0.83-4.51); Absolute Neutrophil Count 8.8 X10^3/uL (2.0-7.7); Basophil# 0.05 X10^3/uL; Basophil% 0.4 % (0-1); Eosinophil# 0.26 X10^3/uL; Eosinophils% 2.1 % (0-5); Hematocrit 23.4 % (37-47); Hemoglobin 7.4 g/dL (12.0-15.0); Lymphocyte # 2.18 X10^3/ul (0.83-4.51); Lymphocyte % 17.5 % (19-41); Mean Corp Hgb Conc 31.6 g/dL (32-36); Mean Corpuscular Hgb 32.7 pg (27.0-32.0); Mean Corpuscular Volume 103.5 fL (81-99); Mean Platelet Vol. 10.3 fl (6.2-12.0); Monocyte# 0.75 X10^3/uL; NRBC Flagged by Analyzer 0 % (0-5); Neutrophil # 8.76 X10^3/uL (2.7-7.7); Neutrophil % 70.3 % (47-70); POSITIVE MORPHOLOGY YES; Platelet Count 234 K/mm3 (150-450); RBC Distribution Width CV 18.5 % (11.6-14.6); RBC Distribution Width SD 66.5 fl (35.1-43.9); Red Blood Count 2.26 M/mm3 (4.2-5.4); White Blood Count 12.5 K/mm3 (4.4-11.0)
[2022-10-17 05:08] LABS: Differential Indicated SCAN CRITERIA MET
[2022-10-17] MEDS: 0.9% Saline Lock 10 ML Syringe IV ×5 (06:20→12:05)
[2022-10-17] MEDS: Heparin Injection (Vial) 5,000 UNIT/ML VIAL 5000 UNIT SC ×3 (06:20→20:13)
[2022-10-17] MEDS: Levothyroxine 137 MCG Tablet PO (06:22)
[2022-10-17 06:34] LABS: Anisocytosis 1+; Differential Comment SCANNED; Hypochromasia 2+; Macrocytosis 1+
[2022-10-17] MEDS: Budesonide Respules 0.5 MG/2 ML AMPUL.NEB. INHALATION ×2 (07:07→18:57)
[2022-10-17] MEDS: Ipratropium 0.5 MG/2.5 ML SOLUTION INHALATION ×2 (07:07→18:57)
[2022-10-17 07:18] LABS: Bedside Glucose 116 mg/dL (74-106)
--- NOTE | 2022-10-17 07:18 | PN.CC_ITS ---
Assessment & Plan Assessment/Plan (1) Septic shock: PLAN: Plan RECOMMENDATIONS: 1. Continue dialysis with volume removal if possible 2. Possible reinitiation of vasopressors during dialysis 3. Advancement of diet following cookie swallow 4. Likely okay to continue IJ site conservative therapy 5. Continue Accu-Cheks and sliding scale insulin. Hold basal insulin IMPRESSIONS: 1. Septic shock secondary to bacterial peritonitis Peritoneal cultures are now showing coag negative staph. This appears to be a repeat infection from July. Patient was treated with 14 days of vancomycin at that time. Patient has not had very good volume removal with peritoneal dialysis in the setting, but has responded well to hemodialysis. Pressors discontinued yesterday. Cannot exclude the need for reinitiation to facilitate volume removal, so would monitor in the intensive care unit for another 24 ho urs. Okay to continue with conventional dialysis from my perspective. Patient on minimal pressors and this could be provided peripherally. Plan to continue vasopressor support to maintain mean arterial pressure at or above 65 mmHg. 2. Syncope Clinical suspicion that this was secondary to decreased intravascular volume secondary to problem #1. Patient does have a upper airway wheeze at this time, but this is likely secondary to fluid overload. Patient does appear to have some anasarca at this time. 3. History of chronic kidney disease on peritoneal dialysis Nephrology is following to assist with medical management. 4. Morbid obesity/hyperlipidemia/hypertension/hypothyroidism/diabetes mellitus/dysphagia Complicates care, management, recovery and prognosis. Continue supportive measures as noted above. Continue Accu-Cheks and sliding scale insulin coverage. Basal insulin held given n.p.o. status. Patient to have an EGD today Subjective Subjective Patient did well overnight. Patient was able to have over 3 L removed yesterday with hemodialysis. Patient subsequently was able to be taken off of Levophed in the evening. Patient was placed on 2 L nasal cannula for hypoxia associated with sleep, but has no respiratory complaints at this time. Patient was able to tolerate a full liquid diet and is reporting she feels like she needs to have a bowel movement this morning. Patient still reports some generalized soreness of the abdomen, but feels it is much improved compared to previous. Objective Data Objective Data Vital Signs: Vital Signs Temp Pulse Resp BP Pulse Ox O2 Del Method O2 Flow Rate 36.8 C 72 18 98/49 L 93 Nasal Cannula 2 10/17/22 06:00 10/17/22 07:07 10/17/22 07:07 10/17/22 06:00 10/17/22 07:07 10/17/22 07:07 10/17/22 07:07 FiO2 2 10/14/22 01:00 Oxygen Flow Rate (L/min) 2 Oxygen Delivery Method Nasal Cannula Weight: 105.7 kg Body Mass Index (BMI) 45.7 Intake & Output: Intake and Output for Last 24 Hours 10/15/22 10/16/22 10/17/22 23:59 23:59 23:59 Intake Total 541.82 / 547.45 1273.39 / 1288.39 Output Total 3680 / 3680 3400 / 3400 Balance -3138.18 / -3132.55 -2126.61 / -2111.61 Lab / Micro Data Attestation: I reviewed the patient's lab results. 10/17/22 05:00 10/17/22 03:15 Labs: Laboratory Results - last 24 hr 10/16/22 06:42: POC Glucose 54 L 10/16/22 08:03: POC Glucose 114 H 10/16/22 11:00: Fluid Source PERITONEAL FLUID, Fluid Color YELLOW, Fluid Appearance CLEAR, Fluid WBC 0.742, Fluid RBC 10, Fluid Tot Cell Count 0.749 H, Fld Polynuclear WBCs # 0.334, Fld Polynuclear WBCs % 45.0, Fluid Mononuclear WBCs 0.408, Fld Mononuclear WBCs % 55.0, Fluid Neutrophils 43, Fluid Lymphocytes 54, Fluid Monocytes 3, Fl Pathologist Comment May follow, Fluid Comment 2 SEE COMMENT 10/16/22 12:04: POC Glucose 79 10/16/22 16:13: POC Glucose 49 L 10/16/22 21:40: POC Glucose 127 H 10/17/22 03:15: WBC Cancelled, Corrected WBC Cancelled, RBC Cancelled, Hgb Cancelled, Hct Cancelled, MCV Cancelled, MCH Cancelled, MCHC Cancelled, RDW Std Deviation Cancelled, RDW Coeff of Alanna Cancelled, Plt Count Cancelled, MPV Cancelled, Immature Gran % (Auto) Cancelled, Neut % (Auto) Cancelled, Lymph % (Auto) Cancelled, [place] % (Auto) Cancelled, Eos % (Auto) Cancelled, Baso % (Auto) Cancelled, Absolute Neuts (auto) Cancelled, Absolute Lymphs (auto) Cancelled, T otal Counted Cancelled, Neutrophils % (Manual) Cancelled, Band Neutrophils % Cancelled, Lymphocytes % (Manual) Cancelled, Monocytes % (Manual) Cancelled, Eosinophils % (Manual) Cancelled, Basophils % (Manual) Cancelled, Metamyelocytes % Cancelled, Myelocytes % Cancelled, Promyelocytes % Cancelled, Blast Cells % Cancelled, Plasma Cell % (Manual) Cancelled, Other Cells % Cancelled, Nucleated RBC % Cancelled, Nucleated RBCs/100 WBC Cancelled, Differential Comment Cancelled, Diff Path Review Cancelled, Hypersegmented Neuts Cancelled, Atypical Lymphocytes Cancelled, Reactive Lymphocytes Cancelled, Smudge Cells Cancelled, Toxic Granulation Cancelled, Toxic Vacuolation Cancelled, Dohle Bodies Cance lled, Madhu Rods Cancelled, Platelet Estimate Cancelled, Plt Morphology Comment Cancelled, RBC Morphology Cancelled 10/17/22 03:15: RBC Morphology Cancelled, Polychromasia Cancelled, Hypochromasia Cancelled, Poikilocytosis Cancelled, Basophilic Stippling Cancelled, Anisocytosis Cancelled, Microcytosis Cancelled, Macrocytosis Cancelled, Spherocytes Cancelled, Sickle Cells Cancelled, Target Cells Cancelled, Tear Drop Cells Cancelled, Ovalocytes Cancelled, Stomatocytes Cancelled, Pugh-[place] Bodies Cancelled, [place] Cells Cancelled, Bite Cells Cancelled, Crenated Cell Cancelled, Acanthocytes (Spur) Cancelled, Rouleaux Cancelled, Schistocytes Cancelled, Sodium 138, Potassium 4.2, Chloride 106, Carbon Dioxide 26.0, Anion Gap 6, BUN 24 H, Creatinine 4.35 H, Estim Creat Clear Calc 7.41, Est GFR (MDRD) Af Amer 13 L, Est GFR (MDRD) Non-Af 10 L, BUN/Creatinine Ratio 5.5 L, Glucose 143 H, Calcium 7.5 L, Total Bilirubin 0.30, AST 35, ALT 16, Alkaline Phosphatase 83, Total Protein 4.6 L, Albumin 1.2 L, Globulin 3.4, Albumin/Globulin Ratio 0.4 L 10/17/22 05:00: WBC 12.5 H, RBC 2.26 L, Hgb 7.4 L, Hct 23.4 L, MCV 103.5 H, MCH 32.7 H, MCHC 31.6 L, RDW Std Deviation 66.5 H, RDW Coeff of Alanna 18.5 H, Plt Count 234, MPV 10.3, Immature Gran % (Auto) 3.700 H, Neut % (Auto) 70.3 H, Lymph % (Auto) 17.5 L, [place] % (Auto) 6.0, Eos % (Auto) 2.1, Baso % (Auto) 0.4, Absolute Neuts (auto) 8.8 H, Absolute Lymphs (auto) 2.18, Nucleated RBC % 0, Differential Comment SCANNED, Hypochromasia 2+, Anisocytosis 1+, Macrocytosis 1+ 10/17/22 06:55: POC Glucose 116 H Micro: Microbiology 10/11/22 13:30 Blood Culture (Wb) - Venous Blood Culture - Final No growth in 5 days. 10/16/22 11:00 Fluid - Peritoneal Gram Stain - Final 10/11/22 12:45 Blood Culture (Wb) - Arm Right Blood Culture - Final No growth in 5 days. 10/12/22 12:50 Fluid - Paracentesis (Abd) Gram Stain - Final 10/12/22 12:50 Fluid - Paracentesis (Abd) Body Fluid Culture - Final Coag Negative Staph 10/12/22 12:50 Fluid - Paracentesis (Abd) Anaerobic Culture - Final No anaerobic bacteria isolated. Rhythm Strip Ectopy: - (Majority paced) Physical Exam Const alert and no apparent distress Constitutional Narrative: Anasarca improving General Appearance: cooperative HEENT normocephalic, head/scalp atraumatic and moist oral mucous membranes Eyes PERRL, EOMs intact bilaterally and conjunctivae normal Neck supple Neck Narrative: Dialysis line is having slight oozing General: trachea midline and CVC in place Chest inspection of chest normal Resp normal respiratory effort Auscultation: diminished lung sounds; Negative for rales, rhonchi or wheezes Cardio regular rate, regular rhythm, no murmurs, no rub and no gallops GI normal to inspection, nondistended, normoactive bowel sounds Extremity Extremity Narrative: Right upper arm PICC General Extremity: edema; Negative for clubbing Skin no rashes or lesions noted Neuro CN's II-XII intact bilaterally, moves all extremities and no focal motor deficits Psych cooperative and affect normal Charges/Coding Visit Charges Inpatient E&M: 85670 Subs Hosp L3
[2022-10-17] MEDS: Midodrine HCl 5 MG Tablet 10 MG PO ×3 (07:25→17:13)
[2022-10-17 07:30] LABS: Bedside Glucose 78 mg/dL (74-106)
[2022-10-17] MEDS: 0.9% Normal Saline 1,000 ML IV.SOLN. 1000 ML OPERA.SITE (08:02)
[2022-10-17] MEDS: PureFlow B 3K Dialysis Soln 1 BAG 6 BAG PF (08:02)
--- NOTE | 2022-10-17 08:44 | PN.SURG_ITS ---
Subjective Subjective She currently receives dialysis. Patient is agreeable to continue with hemodialysis in the future. Objective Data Objective Data Vital Signs: Vital Signs Temp Pulse Resp BP Pulse Ox O2 Del Method O2 Flow Rate 97.8 F 70 18 110/43 L 94 Nasal Cannula 1.5 10/17/22 08:00 10/17/22 08:30 10/17/22 08:30 10/17/22 08:30 10/17/22 08:30 10/17/22 08:30 10/17/22 08:30 FiO2 98 10/17/22 08:14 Oxygen Flow Rate (L/min) 1.5 Oxygen Delivery Method Nasal Cannula Weight: 233 lb 0.458 oz Body Mass Index (BMI) 45.7 Intake & Output: Intake and Output for Last 24 Hours 10/15/22 10/16/22 10/17/22 23:59 23:59 23:59 Intake Total 541.82 / 547.45 1273.39 / 1288.39 Output Total 3680 / 3680 3400 / 3400 Balance -3138.18 / -3132.55 -2126.61 / -2111.61 Lab / Micro Data 10/17/22 05:00 10/17/22 03:15 Labs: Laboratory Results - last 24 hr 10/16/22 11:00: Fluid Source PERITONEAL FLUID, Fluid Color YELLOW, Fluid Appearance CLEAR, Fluid WBC 0.742, Fluid RBC 10, Fluid Tot Cell Count 0.749 H, Fld Polynuclear WBCs # 0.334, Fld Polynuclear WBCs % 45.0, Fluid Mononuclear WBCs 0.408, Fld Mononuclear WBCs % 55.0, Fluid Neutrophils 43, Fluid Lymphocytes 54, Fluid Monocytes 3, Fl Pathologist Comment May follow, Fluid Comment 2 SEE COMMENT 10/16/22 12:04: POC Glucose 79 10/16/22 16:13: POC Glucose 49 L 10/16/22 16:43: POC Glucose 78 10/16/22 21:40: POC Glucose 127 H 10/17/22 03:15: WBC Cancelled, Corrected WBC Cancelled, RBC Cancelled, Hgb Cancelled, Hct Cancelled, MCV Cancelled, MCH Cancelled, MCHC Cancelled, RDW Std Deviation Cancelled, RDW Coeff of Alanna Cancelled, Plt Count Cancelled, MPV Cancelled, Immature Gran % (Auto) Cancelled, Neut % (Auto) Cancelled, Lymph % (Auto) Cancelled, [place] % (Auto) Cancelled, Eos % (Auto) Cancelled, Baso % (Auto) Cancelled, Absolute Neuts (auto) Cancelled, Absolute Lymphs (auto) Cancelled, Total Counted Cancelled, Neutrophils % (Manual) Cancelled, Band Neutrophils % Cancelled, Lymphocytes % (Manual) Cancelled, Monocytes % (Manual) Cancelled, Eosinophils % (Manual) Cancelled, Basophils % (Manual) Cancelled, Metamyelocytes % Cancelled, Myelocytes % Cancelled, Promyelocytes % Cancelled, Blast Cells % Cancelled, Plasma Cell % (Manual) Cancelled, Other Cells % Cancelled, Nucleated RBC % Cancelled, Nucleated RBCs/100 WBC Cancelled, Differential Comment Cancelled, Diff Path Review Cancelled, Hypersegmented Neuts Cancelled, Atypical Lymphocytes Cancelled, Reactive Lymphocytes Cancelled, Smudge Cells Cancelled, Toxic Granulation Cancelled, Toxic Vacuolation Cancelled, Dohle Bodies Cancelled, Madhu Rods Cancelled, Platelet Estimate Cancelled, Plt Morphology Comment Cancelled, RBC Morphology Cancelled 10/17/22 03:15: RBC Morphology Cancelled, Polychromasia Cancelled, Hypochromasia Cancelled, Poikilocytosis Cancelled, Basophilic Stippling Cancelled, A nisocytosis Cancelled, Microcytosis Cancelled, Macrocytosis Cancelled, Spherocytes Cancelled, Sickle Cells Cancelled, Target Cells Cancelled, Tear Drop Cells Cancelled, Ovalocytes Cancelled, Stomatocytes Cancelled, Pugh-[place] Bodies Cancelled, [place] Cells Cancelled, Bite Cells Cancelled, Crenated Cell Cancelled, Acanthocytes (Spur) Cancelled, Rouleaux Cancelled, Schistocytes Cancelled, Sodium 138, Potassium 4.2, Chloride 106, Carbon Dioxide 26.0, Anion Gap 6, BUN 24 H, Creatinine 4.35 H, Estim Creat Clear Calc 7.41, Est GFR (MDRD) Af Amer 13 L, Est GFR (MDRD) Non-Af 10 L, BUN/Creatinine Ratio 5.5 L, Glucose 143 H, Calcium 7.5 L, Total Bilirubin 0.30, AST 35, ALT 16, Alkaline Phosphatase 83, Total Protein 4.6 L, Albumin 1.2 L, Globulin 3.4, Albumin/Globulin Ratio 0.4 L 10/17/22 05:00: WBC 12.5 H, RBC 2.26 L, Hgb 7.4 L, Hct 23.4 L, MCV 103.5 H, MCH 32.7 H, MCHC 31.6 L, RDW Std Deviation 66.5 H, RDW Coeff of Alanna 18.5 H, Plt Coun t 234, MPV 10.3, Immature Gran % (Auto) 3.700 H, Neut % (Auto) 70.3 H, Lymph % (Auto) 17.5 L, [place] % (Auto) 6.0, Eos % (Auto) 2.1, Baso % (Auto) 0.4, Absolute Neuts (auto) 8.8 H, Absolute Lymphs (auto) 2.18, Nucleated RBC % 0, Differential Comment SCANNED, Hypochromasia 2+, Anisocytosis 1+, Macrocytosis 1+ 10/17/22 06:55: POC Glucose 116 H Micro: Microbiology 10/16/22 11:00 Fluid - Peritoneal Gram Stain - Final 10/16/22 11:00 Fluid - Peritoneal Body Fluid Culture - Preliminary No growth-Final to follow 10/11/22 13:30 Blood Culture (Wb) - Venous Blood Culture - Final No growth in 5 days. 10/11/22 12:45 Blood Culture (Wb) - Arm Right Blood Culture - Final No growth in 5 days. 10/12/22 12:50 Fluid - Paracentesis (Abd) Gram Stain - Final 10/12/22 12:50 Fluid - Paracentesis (Abd) Body Fluid Culture - Final Coag Negative Staph 10/12/22 12:50 Fluid - Paracentesis (Abd) Anaerobic Culture - Final No anaerobic bacteria isolated. Rhythm Strip Ectopy: - (Majority paced) Physical Exam Narrative Patient currently receiving dialysis Const oriented x3 and no apparent distress Resp normal respiratory effort Cardio regular rate Assessment & Plan Assessment/Plan (1) Peritonitis associated with peritoneal dialysis: QUALIFIERS: Encounter type: initial encounter Qualified Code(s): T85.71XA - Infection and inflammatory reaction due to peritoneal dialysis catheter, initial encounter PLAN: Plan Patient currently tolerating hemodialysis and upon talking patient does seem like she is agreeable to switch from peritoneal. Currently cultures are negative and the PD cath. Dr. Roblero will be following over the weekend. We will plan for tunneled dialysis catheter likely Friday. Also would be planning to remove the PD catheter in future. Unsure exact timing did receive patient's op note she does have a mesh placed directly next to her catheter which may possibly complicate removal and patient may have to have laparoscopy- could be done as outpt. Anyi Beverly M.D. Pager: [phone] [facility] [address] [place] [address], Outpatient [place], [address] [place] [address] Office: [phone] Charges/Coding Visit Charges Inpatient E&M: 95200 Subs Hosp L2
--- NOTE | 2022-10-17 10:02 | PCM.PN.ID ---
Physical Exam Narrative Sleeping, in icu on HD this AM, no fever Const no apparent distress Resp normal air movement and clear to auscultation bilaterally Cardio regular rate and regular rhythm GI soft to palpation, non-tender and non-distended Skin no rashes or lesions noted ID ID: Route of nutrition/ use of supplements: [] Nutritional Intake: [] IV Site: [] Mittal Catheter: [] Assessment & Plan Assessment/Plan (1) Peritonitis associated with peritoneal dialysis: QUALIFIERS: Encounter type: initial encounter Qualified Code(s): T85.71XA - Infection and inflammatory reaction due to peritoneal dialysis catheter, initial encounter (2) Septic shock: PLAN: due to peritonitis. Fluid with MS-CoNS, improving. Cont cefazolin. As long as repeat fluid cx is neg, plan will be for 2 weeks total iv abx, can be discharged on cefazolin 2gm given with hemodialysis sessions, stop date 10/25/22. Will follow
--- NOTE | 2022-10-17 10:52 | PN.HOSP_ITS ---
Reason for Visit Reason for Visit: Syncope Subjective Subjective Patient has been tolerating hemodialysis very well and intends to transition off of PD to HD at discharge. Will need tunneled dialysis catheter placed prior to discharge. Has come off Levophed late yesterday afternoon and is currently on dialysis and is tolerating dialysis well today thus far sans some mild cramping. Goal diuresis is 4 L however per dialysis nurse at the bedside he may only get 3 L off due to cramping. Objective Data Objective Data Vital Signs: Vital Signs Temp Pulse Resp BP Pulse Ox O2 Del Method O2 Flow Rate 97.8 F 70 15 114/45 L 96 Nasal Cannula 1.5 10/17/22 08:00 10/17/22 10:45 10/17/22 10:45 10/17/22 10:45 10/17/22 10:45 10/17/22 10:45 10/17/22 10:45 FiO2 98 10/17/22 08:14 Oxygen Flow Rate (L/min) 1.5 Oxygen Delivery Method Nasal Cannula Weight: 105.7 kg Body Mass Index (BMI) 45.7 Intake & Output: Intake and Output for Last 24 Hours 10/15/22 10/16/22 10/17/22 23:59 23:59 23:59 Intake Total 541.82 / 547.45 1273.39 / 1288.39 Output Total 3680 / 3680 3400 / 3400 Balance -3138.18 / -3132.55 -2126.61 / -2111.61 Lab / Micro Data 10/17/22 05:00 10/17/22 03:15 Labs: Laboratory Results - last 24 hr 10/16/22 11:00: Fluid Source PERITONEAL FLUID, Fluid Color YELLOW, Fluid Appearance CLEAR, Fluid WBC 0.742, Fluid RBC 10, Fluid Tot Cell Count 0.749 H, Fld Polynuclear WBCs # 0.334, Fld Polynuclear WBCs % 45.0, Fluid Mononuclear WBCs 0.408, Fld Mononuclear WBCs % 55.0, Fluid Neutrophils 43, Fluid Lymphocytes 54, Fluid Monocytes 3, Fl Pathologist Comment May follow, Fluid Comment 2 SEE COMMENT 10/16/22 12:04: POC Glucose 79 10/16/22 16:13: POC Glucose 49 L 10/16/22 16:43: POC Glucose 78 10/16/22 21:40: POC Glucose 127 H 10/17/22 03:15: WBC Cancelled, Corrected WBC Cancelled, RBC Cancelled, Hgb Cancelled, Hct Cancelled, MCV Cancelled, MCH Cancelled, MCHC Cancelled, RDW Std Deviation Cancelled, RDW Coeff of Alanna Cancelled, Plt Count Cancelled, MPV Cancelled, Immature Gran % (Auto) Cancelled, Neut % (Auto) Cancelled, Lymph % (Auto) Cancelled, Bradley % (Auto) Cancelled, Eos % (Auto) Cancelled, Baso % (Auto) Cancelled, Absolute Neuts (auto) Cancelled, Absolute Lymphs (auto) Cancelled, Total Counted Cancelled, Neutrophils % (Manual) Cancelled, Band Neutrophils % Cancelled, Lymphocytes % (Manual) Cancelled, Monocytes % (Manual) Cancelled, Eosinophils % (Manual) Cancelled, Basophils % (Manual) Cancelled, Metamyelocytes % Cancelled, Myelocytes % Cancelled, Promyelocytes % Cancelled, Blast Cells % Cancelled, Plasma Cell % (Manual) Cancelled, Other Cells % Cancelled, Nucleated RBC % Cancelled, Nucleated RBCs/100 WBC Cancelled, Differential Comment Cancelled, Diff Path Review Cancelled, Hypersegmented Neuts Cancelled, Atypical Lymphocytes Cancelled, Reactive Lymphocytes Cancelled, Smudge Cells Cancelled, Toxic Granulation Cancelled, Toxic Vacuolation Cancelled, Dohle Bodies Cancelled, Madhu Rods Cancelled, Platelet Estimate Cancelled, Plt Morphology Comment Cancelled, RBC Morphology Cancelled 10/17/22 03:15: RBC Morphology Cancelled, Polychromasia Cancelled, Hypochromasia Cancelled, Poikilocytosis Cancelled, Basophilic Stippling Cancelled, Anisocytosis Cancelled, Microcytosis Cancelled, Macrocytosis Cancelled, Spherocytes Cancelled, Sickle Cells Cancelled, Target Cells Cancelled, Tear Drop Cells Cancelled, Ovalocytes Cancelled, Stomatocytes Cancelled, [place] Bodies Cancelled, [place] Cells Cancelled, Bite Cells Cancelled, Crenated Cell Cancelled, Acanthocytes (Spur) Cancelled, Rouleaux Cancelled, Schistocytes Cancelled, Sodium 138, Potassium 4.2, Chloride 106, Carbon Dioxide 26.0, Anion Gap 6, BUN 24 H, Creatinine 4.35 H, Estim Creat Clear Calc 7.41, Est GFR (MDRD) Af Amer 13 L, Est GFR (MDRD) Non-Af 10 L, BUN/Creatinine Ratio 5.5 L, Glucose 143 H, Calcium 7.5 L, Total Bilirubin 0.30, AST 35, ALT 16, Alkaline Phosphatase 83, Total Protein 4.6 L, Albumin 1.2 L, Globulin 3.4, Albumin/Globulin Ratio 0.4 L 10/17/22 05:00: WBC 12.5 H, RBC 2.26 L, Hgb 7.4 L, Hct 23.4 L, MCV 103.5 H, MCH 32.7 H, MCHC 31.6 L, RDW Std Deviation 66.5 H, RDW Coeff of Alanna 18.5 H, Plt Count 234, MPV 10.3, Immature Gran % (Auto) 3.700 H, Neut % (Auto) 70.3 H, Lymph % (Auto) 17.5 L, Bradley % (Auto) 6.0, Eos % (Auto) 2.1, Baso % (Auto) 0.4, Absolute Neuts (auto) 8.8 H, Absolute Lymphs (auto) 2.18, Nucleated RBC % 0, Differential Comment SCANNED, Hypochromasia 2+, Anisocytosis 1+, Macrocytosis 1+ 10/17/22 06:55: POC Glucose 116 H Micro: Microbiology 10/16/22 11:00 Fluid - Peritoneal Gram Stain - Final 10/16/22 11:00 Fluid - Peritoneal Body Fluid Culture - Preliminary No growth-Final to follow 10/11/22 13:30 Blood Culture (Wb) - Venous Blood Culture - Final No growth in 5 days. 10/11/22 12:45 Blood Culture (Wb) - Arm Right Blood Culture - Final No growth in 5 days. 10/12/22 12:50 Fluid - Paracentesis (Abd) Gram Stain - Final 10/12/22 12:50 Fluid - Paracentesis (Abd) Body Fluid Culture - Final Coag Negative Staph 10/12/22 12:50 Fluid - Paracentesis (Abd) Anaerobic Culture - Final No anaerobic bacteria isolated. Rhythm Strip Ectopy: - (Majority paced) Physical Exam Const alert, oriented x3 and well nourished; Negative for average body habitus or healthy appearing Constitutional Narrative: Morbidly obese, chronically ill-appearing white female, lying in bed, appears comfortable at this time, appears as if she is feeling better today, appears nontoxic, resting comfortably and currently on dialysis HEENT head/scalp atraumatic and moist oral mucous membranes HEENT Narrative: Mallampati 3, no thrush Head and Scalp: normocephalic Resp normal respiratory effort, no retractions, no use of accessory muscles and clear to auscultation bilaterally Auscultation: Negative for rales, rhonchi or wheezes Cardio regular rate, regular rhythm, S1 normal heart sound, S2 normal heart sound, no murmurs, no rub, no gallops and no clicks GI normal to inspection, nondistended, normoactive bowel sounds and soft to palpation GI Narrative: Tenderness has resolved Extremity Extremity Narrative: Scattered ecchymosis bilateral lower extremities with 1+ pitting edema, no cyanosis or clubbing Neuro oriented x3, moves all extremities and no focal motor deficits Neuro Narrative: Significant generalized weakness and with no focal deficits Speech: speech normal Psych affect normal Psych Narrative: Pleasant and appropriately interactive eye contact is good and mood seems stable Assessment & Plan Assessment/Plan (1) Septic shock: (2) Peritonitis associated with peritoneal dialysis: QUALIFIERS: Encounter type: initial encounter Qualified Code(s): T85.71XA - Infection and inflammatory reaction due to peritoneal dialysis catheter, initial encounter (3) Hypokalemia: (4) Hyperglycemia: (5) Dysphagia: QUALIFIERS: Dysphagia type: oral phase Qualified Code(s): R13.11 - Dysphagia, oral phase PLAN: Plan Septic shock secondary to peritoneal dialysis catheter induced coag negative staph bacterial peritonitis -Cultures currently showing coag negative staph -Continue cefazolin and ID recommends 2 more weeks of IV antibiotics with cefaz ethan 2 g given with hemodialysis and tentative stop date of 10/25/2022 as long as repeat fluid culture is negative -Patient is now off Levophed since late yesterday afternoon -Continue midodrine 10 mg p.o. 3 times daily -ID following-appreciate input -Nephro is following-appreciate input -Critical care medicine is following-appreciate input Dysphagia -Speech therapy following -EGD was unremarkable -Patient has been started on a full liquid diet -Continue speech therapy Debility -PT/OT following -Will need SNF at discharge End-stage renal disease -PD dependent--> patient might be willing to transition to hemodialysis at discharge per discussion with nephrology today -Nephrology is following -peritoneal fluid growing staph species -Continue antibiotics per ID -Possible removal of peritoneal catheter if patient is going to have ongoing hemodialysis in the future--> possible removal before discharge we will have to discuss further with nephrology -Patient is considerably above her dry weight--> approximately 20 kg Hypothyroidism -Continue Synthroid CAD/hypertension/hyperlipidemia -Continue aspirin -Continue statin -Hold Coreg due to hypotension GERD -Continue PPI Chronic anemia secondary to renal disease -hemoglobin stable DM-2 -Continue sliding scale -Fasting blood sugar this morning is 143 -Continue to monitor for reinitiation of home Lantus 8 units -A.m. fasting blood sugars 80 -Continue sliding scale insulin -Continue Accu-Cheks -Hold Actos while patient hospitalized History of asthma -Currently stable -Continue home Singulair - stable on room air -Continue nebs as needed Glaucoma -Continue eyedrops Debility -Continue PT/OT -Anticipate possible placement being required at discharge Depression/anxiety -Continue home Wellbutrin DVT prophylaxis -Continue heparin SQ 3 times daily CODE STATUS -DNR CCA without intubation Charges/Coding Visit Charges Inpatient E&M: 14481 Subs Hosp L2
[2022-10-17] MEDS: Heparin 10,000 UNITS/10 ML Vial IV (11:40)
[2022-10-17] MEDS: Magnesium Chloride 64 MG Delay Rel.Tablet 128 MG PO (12:01)
[2022-10-17] MEDS: Aspirin E.C. 81 MG Tablet PO (12:01)
[2022-10-17] MEDS: Gabapentin 100 MG Capsule PO ×2 (12:01→17:15)
[2022-10-17] MEDS: Cyanocobalamin 500 MCG Tablet PO (12:01)
[2022-10-17] MEDS: buPROPion 100 MG Tablet PO ×2 (12:02→20:14)
[2022-10-17] MEDS: Pantoprazole Sodium 40 MG Tablet PO (12:05)
[2022-10-17] MEDS: Cefazolin 1 GM/50 ML BAG IV (12:05)
[2022-10-17 12:19] LABS: Bedside Glucose 86 mg/dL (74-106)
[2022-10-17 13:16] LABS: Hepatitis B Surface Antigen Non-Reactive (Nonreactive)
[2022-10-17] MEDS: Acetaminophen 325 MG Tablet 650 MG PO (13:33)
--- NOTE | 2022-10-17 13:45 | CASEMGMT ---
SW met with patient, her daughter Lydia, son Darek and his . SW introduced self and role at [facility]. SW asked if they have had a chance to review the intermediate list. Family was adamant they do not want [facility]. They asked what other facilities do dialysis on site. SW let them know [facility] is the only other facility that does onsite dialysis. SW let them know [facility] and [facility] are often able to transport patient's to dialysis. They asked about [facility]. SW let them know in this SW's experience [facility] does not transport patient's to dialysis. Family was in agreement with referrals being sent to [facility] and [facility]. Family has not definitely decided, but they are open to these referrals being made. SW asked d/c urban planning professor Sravani to please send referrals. Carmen Farias CHEMISTRY INSTRUCTOR STEPHANE
--- NOTE | 2022-10-17 13:50 | SP.MBSS_ITS ---
Modified Barium Swallow Patient Information Study Date: 10/17/22 Study Time: 13:00 Direct Billable Minutes: 120 Total Minutes procedure & reportin Diagnosis: CHF (I50.22), Septic Shock (R65. 21) Referring Physician: Tono Zuniga Reason for Referral: Objectively assess swallow function, assess risk for aspiration, and determine recommendations for least restrictive diet textures and compensatory strategies to improve safety of swallow. Medical History: Mrs. Rodriguez is an 82-year-old white female who presents emergency department was prehospital on 10/11/2022 after suffering a syncopal episode at home. She suffers from end-stage renal disease and is on peritoneal dialysis at home. Extra fluid was in the process of being removed due to increasing lower extremity swelling at home. It sounded as if the patient had progressively been getting weak and had a fall 2 days prior to admission. She stated she is having abdominal pain, nausea, with intermittent vomiting. She stated she has been having coughing after eating frequently over the past several months and is to get a scope as an outpatient but has not been able to do so as of yet. It sounds as if she has had speech therapy, but it is unclear whether she had any other further diagnostic testing including a barium swallow or an upper GI. She still remains on 2 to 3 mcg/min of Levophed. Vasopressin has been discontinued. Patient referred for speech evaluation due to swallowing difficulty. Patient evaluated by speech on 10/14/22 and recommended to remain NPO until seen by GI due to vomiting with limited trials. See evaluation for full report. EGD completed on 10/16/22 with normal esophagus, small hiatal hernia, no gross lesions in the stomach, normal fist portion of duodenum, and no specimens collected. See EGD report for full details. Patient seen by speech on 10/16/22 after EGD. Patient reported vomiting and nausea had not been present for two days. Patient was recommended for regular textures/thin liquids, and to plan for MBSS to assess presence/risk for aspiration, and to observe the presence of possible esophageal retention. Current Diet Ordered: Regular Textures/ Thin Liquids Dentition: WNL Mental Status: WNL Respiratory Status: Oxygenating on 2L/M nasal cannula Penetration-Aspiration Scale Penetration-Aspiration Scale: OBJECTIVE ASSESSMENT OF SWALLOW FUNCTION (QUANTITATIVE ? PER TRIAL): PENETRATION / ASPIRATION SCALE (SMITH): 1 = does not enter airway 2 = enters airway/above vocal folds/ejected 3 = enters airway/above vocal folds/not ejected 4 = enters airway/contacts vocal folds/ejected 5 = enters airway/contacts vocal folds/not ejected 6 = enters airway/below vocal folds/ejected 7 = enters airway/below vocal folds/not ejected despite effort 8 = enters airway/below vocal folds/no effort VIDEOFLOROSCOPIC SCALE SCORE (SMITH): Grade I = aspiration of material that has penetrated into the laryngeal vestibule, intact cough reflex Grade II = aspiration < 10 % of the bolus, intact cough reflex Grade III = aspiration of < 10 % of the bolus, reduced cough reflex or aspiration of > 10 % of the bolus, intact cough reflex Grade IV = aspiration of > 10 % of the bolus, reduced cough reflex Penetration-Aspiration Scale Score Thin Liquid via teaspoon: Result: 2= enter airway/above vocal folds/ejected Thin Liquid via teaspoon Trial 2: Result: 2= enter airway/above vocal folds/ejected Comment: Independent use of throat clear after completion of swallow. Thin Liquid via single cup sip : Result: 1= does not enter airway [place] Thick Liquid via single cup sip: Result: 1= does not enter airway Pudding via tsp w/esophageal screen : Result: 1= does not enter airway Thin Liquid via sequential straw sip w/esophageal screen : Result: 2= enter airway/above vocal folds/ejected Comment: Trace penetration. 1/2 Cookie w/esophageal screen : Result: 1= does not enter airway Oral Phase Labial Seal: No Labial Escape Tongue Control During Bolus Hold: Posterior escape of greater than half of bolus Bolus Preparation/Mastication: Slow prolonged chewing/mashing with complete recollection Bolus Transport/Lingual Motion: Repetitive/disorganized tongue motion Oral Residue: Trace residue lining oral structures Pharyngeal Phase Initiation of Pharyngeal Swallow: Bolus head in pyriforms Soft Palate Elevation: No bolus between soft palate and pharyngeal wall Laryngeal Elevation: Comp. Superior move thyroid cart w/comp. apprx arytenoid cart-epig pet Anterior Hyoid Excursion: Complete anterior movement Epiglottic Movement: Complete inversion Laryngeal Vestibule Closure at Height of Swallow: Incomplete; narrow column of air/contrast in laryngeal vestibule Pharyngeal Stripping Wave: Present - diminished Pharyngoesophageal Segment Opening: Parital distension and partial duration; parital obstruction of flow Tongue Base Retraction: Wide column of contrast between tongue base & post. pharyngeal wall Pharyngeal Residue: Collection of residue within or on pharyngeal structures Esophageal Phase Esophageal Clearance: Esophageal retention w/ retrograde flow below pharyngoesophageal seg. Treatment Strategies Effects of treatment strategies attemped:: use of liquid wash to help manage esophageal retention = somewhat effective Diagnosis/Impression Diagnosis: Mild Oropharyngeal Dysphagia Impression: The oral phase is primarily marked by... -Decreased bolus control with >1/2 of the bolus spilling posteriorly to the pyriforms prior to swallow onset observed with thin liquids especially. -Slowed and repetitive tongue motion for A-P transport -Mild oral residue after the swallow, which mostly cleared with intermittent use of initiation of multiple swallows. The pharyngeal phase is primarily marked by... -Mildly decreased airway closure during the swallow due to decreased anterior hyoid excursion, and decreased laryngeal elevation. -Moderately decreased tongue base retraction, mildly decreased UES opening/duration, and mildly decreased pharyngeal stripping wave with resulting mild-moderate pharyngeal residues after the swallow. -Laryngeal penetration which reliably ejected from the laryngeal vestibule after the swallow. -Cannot definitively rule out deep laryngeal penetration or aspiration due to the patient's body habitus. The esophageal phase is primarily marked by... -Esophageal retention of pudding throughout esophagus with retrograde flow remaining below UES during the study. This esophageal retention had minimally improved clearance when provided thin liquid wash. -Esophageal retention of thin liquid by sequential straw sips, and retention of 1/2 cookie throughout esophagus, which remained below the UES during the study. Recommendations Diet: Regular Textures and Thin Liquids Compensatory Strategies: Small Bites, Small Sips, Slow Rate, Alternate bites/solids and sips/liquids, Sitting upright and Remain sitting upright for 30 minutes after PO intake Recommend Repeat Modified Barium Swallow: TBD Need for Skilled Speech Therapy Services: Yes Comment: Will recommend the patient for dysphagia therapy to address deficits in gaudencio pharyngeal swallow function. Will recommend the patient for oropharyngeal strengthening to improve lingual coordination, tongue base retraction, laryngeal elevation, hyoid excursion, and duration of UES opening (CTAR, Effortful Swallows, Lingual Resistance, Audelia, Gino). The patient would benefit from thorough education regarding diet recommendations and recommended compensatory strategies (i.e., small bites/sips, alternating bites/sips). Would encourage continue follow up with GI to help manage esophageal concerns, regarding esophageal retention/retrograde, and to continue to manage episodes of nausea and vomiting. Education Completed: 1. Described result of evaluation., 2. Pt understands evaluation & agrees with goals and treatment plan. and 7. Pt requires further education on strategies & risks. Status Active ST Patient: Active Contact Information [facility] Speech Therapy:: Parker Newton M.A. CF-CLAIMS MANAGER Speech-Language Pathologist [facility] [address] [place] [address] [email or web address] [phone]
--- NOTE | 2022-10-17 17:00 | EX.PCM.PN.GI ---
Subjective Subjective Patient underwent EGD yesterday for esophageal dysphagia. There were no gross abnormal disease seen oropharynx or esophagus proper. Patient there was nogross motility abnormality Seen except for some poor peristaltic waves. She is tolerating a modified diet. Objective Data Objective Data Vital Signs: Vital Signs Temp Pulse Resp BP Pulse Ox O2 Del Method O2 Flow Rate 96.9 F L 70 18 106/43 L 92 Nasal Cannula 1 10/17/22 16:00 10/17/22 16:00 10/17/22 16:00 10/17/22 16:00 10/17/22 16:00 10/17/22 16:00 10/17/22 16:00 FiO2 98 10/17/22 08:14 Oxygen Flow Rate (L/min) 1 Oxygen Delivery Method Nasal Cannula Weight: 224 lb 3.362 oz Body Mass Index (BMI) 44.0 Intake & Output: Intake and Output for Last 24 Hours 10/15/22 10/16/22 10/17/22 23:59 23:59 23:59 Intake Total 541.82 / 547.45 1273.39 / 1288.39 545 / 545 Output Total 3680 / 3680 3400 / 3400 4000 / 4000 Balance -3138.18 / -3132.55 -2126.61 / -2111.61 -3455 / -3455 Lab / Micro Data 10/17/22 05:00 10/17/22 03:15 Labs: Laboratory Results - last 24 hr 10/16/22 16:43: POC Glucose 78 10/16/22 21:40: POC Glucose 127 H 10/17/22 03:15: WBC Cancelled, Corrected WBC Cancelled, RBC Cancelled, Hgb Cancelled, Hct Cancelled, MCV Cancelled, MCH Cancelled, MCHC Cancelled, RDW Std Deviation Cancelled, RDW Coeff of Alanna Cancelled, Plt Count Cancelled, MPV Cancelled, Immature Gran % (Auto) Cancelled, Neut % (Auto) Cancelled, Lymph % (Auto) Cancelled, Metcalfe % (Auto) Cancelled, Eos % (Auto) Cancelled, Baso % (Auto) Cancelled, Absolute Neuts (auto) Cancelled, Absolute Lymphs (auto) Cancelled, Total Counted Cancelled, Neutrophils % (Manual) Cancelled, Band Neutrophils % Cancelled, Lymphocytes % (Manual) Cancelled, Monocytes % (Manual) Cancelled, Eosinophils % (Manual) Cancelled, Basophils % (Manual) Cancelled, Metamyelocytes % Cancelled, Myelocytes % Cancelled, Promyelocytes % Cancelled, Blast Cells % Cancelled, Plasma Cell % (Manual) Cancelled, Other Cells % Cancelled, Nucleated RBC % Cancelled, Nucleated RBCs/100 WBC Cancelled, Differential Comment Cancelled, Diff Path Review Cancelled, Hypersegmented Neuts Cancelled, Atypical Lymphocytes Cancelled, Reactive Lymphocytes Cancelled, Smudge Cells Cancelled, Toxic Granulation Cancelled, Toxic Vacuolation Cancelled, Dohle Bodies Cancelled, Madhu Rods Cancelled, Platelet Estimate Cancelled, Plt Morphology Comment Cancelled, RBC Morphology Cancelled 10/17/22 03:15: RBC Morphology Cancelled, Polychromasia Cancelled, Hypochromasia Cancelled, Poikilocytosis Cancelled, Basophilic Stippling Cancelled, Anisocytosis Cancelled, Microcytosis Cancelled, Macrocytosis Cancelled, Spherocytes Cancelled, Sickle Cells Cancelled, Target Cells Cancelled, Tear Drop Cells Cancelled, Ovalocytes Cancelled, Stomatocytes Cancelled, Pugh-[place] Bodies Cancelled, Oswaldo Cells Cancelled, Bite Cells Cancelled, Crenated Cell Cancelled, Acanthocytes (Spur) Cancelled, Rouleaux Cancelled, Schistocytes Cancelled, Sodium 138, Potassium 4.2, Chloride 106, Carbon Dioxide 26.0, Anion Gap 6, BUN 24 H, Creatinine 4.35 H, Estim Creat Clear Calc 7.41, Est GFR (MDRD) Af Amer 13 L, Est GFR (MDRD) Non-Af 10 L, BUN/Creatinine Ratio 5.5 L, Glucose 143 H, Calcium 7.5 L, Total Bilirubin 0.30, AST 35, ALT 16, Alkaline Phosphatase 83, Total Protein 4.6 L, Albumin 1.2 L, Globulin 3.4, Albumin/Globulin Ratio 0.4 L 10/17/22 05:00: WBC 12.5 H, RBC 2.26 L, Hgb 7.4 L, Hct 23.4 L, MCV 103.5 H, MCH 32.7 H, MCHC 31.6 L, RDW Std Deviation 66.5 H, RDW Coeff of Alanna 18.5 H, Plt Count 234, MPV 10.3, Immature Gran % (Auto) 3.700 H, Neut % (Auto) 70.3 H, Lymph % (Auto) 17.5 L, Metcalfe % (Auto) 6.0, Eos % (Auto) 2.1, Baso % (Auto) 0.4, Absolute Neuts (auto) 8.8 H, Absolute Lymphs (auto) 2.18, Nucleated RBC % 0, Differential Comment SCANNED, Hypochromasia 2+, Anisocytosis 1+, Macrocytosis 1+ 10/17/22 06:55: POC Glucose 116 H 10/17/22 11:59: POC Glucose 86 10/17/22 : Hep Bs Antigen Non-Reactive Micro: Microbiology 10/16/22 11:00 Fluid - Peritoneal Gram Stain - Final 10/16/22 11:00 Fluid - Peritoneal Body Fluid Culture - Preliminary No growth-Final to follow 10/11/22 13:30 Blood Culture (Wb) - Venous Blood Culture - Final No growth in 5 days. 10/11/22 12:45 Blood Culture (Wb) - Arm Right Blood Culture - Final No growth in 5 days. 10/12/22 12:50 Fluid - Paracentesis (Abd) Gram Stain - Final 10/12/22 12:50 Fluid - Paracentesis (Abd) Body Fluid Culture - Final Coag Negative Staph 10/12/22 12:50 Fluid - Paracentesis (Abd) Anaerobic Culture - Final No anaerobic bacteria isolated. Rhythm Strip Ectopy: - (Majority paced) Physical Exam Narrative Sleeping, in icu on HD this AM, no fever Const no apparent distress Resp normal air movement and clear to auscultation bilaterally Cardio regular rate and regular rhythm GI soft to palpation, non-tender and non-distended Skin no rashes or lesions noted Assessment & Plan Assessment/Plan (1) Dysphagia: QUALIFIERS: Dysphagia type: oral phase Qualified Code(s): R13.11 - Dysphagia, oral phase PLAN: Dysphagia may present in all critically ill patients and large-scale clinical data show that e.g. post-extubation dysphagia (PED) is commonly observed in intensive care unit patients. She has septic shock secondary to peritonitis associated with peritoneal dialysis. From a clinical perspective, dysphagia is well-known to be associated with an increased risk of aspiration and aspiration-induced pneumonia, delayed resumption of oral intake/malnutrition, decreased quality of life, prolonged ICU and hospital length of stay, and increased morbidity and mortality. She is able to eat a modified diet aspiration. I think with frequent rehabilitation usage of swallowing exercises she should be able to swallow back to normal function as she had a prior to coming in the hospital. Charges/Coding Visit Charges Inpatient E&M: 75302 Subs Hosp L3
[2022-10-17 17:31] LABS: Bedside Glucose 118 mg/dL (74-106)
[2022-10-17] MEDS: Latanoprost 0.005% 1 Bottle 1 DRP EACH EYE (20:13)
[2022-10-17] MEDS: Montelukast 10 MG Tablet PO (20:14)
[2022-10-17] MEDS: Atorvastatin Calcium 80 MG Tablet PO (20:14)
[2022-10-18] VITALS (43 sets, daily range): BP systolic 19–214; BP diastolic 26–89; PULSE 67–72; RESP 13–21; TEMP 35.8–36.8; O2SAT 90–100; BMI 44.3; BMI 42.7
[2022-10-18 01:43] LABS: Bedside Glucose 111 mg/dL (74-106)
[2022-10-18 03:22] LABS: Differential Indicated MANUAL DIFF; Hemoglobin 7.9 g/dL (12.0-15.0); Mean Corp Hgb Conc 31.6 g/dL (32-36); Mean Corpuscular Hgb 32.6 pg (27.0-32.0); Mean Corpuscular Volume 103.3 fL (81-99); Mean Platelet Vol. 9.7 fl (6.2-12.0); POSITIVE COUNT YES; POSITIVE MORPHOLOGY YES; Platelet Count 229 K/mm3 (150-450); RBC Distribution Width CV 18.2 % (11.6-14.6); RBC Distribution Width SD 66.3 fl (35.1-43.9); Red Blood Count 2.42 M/mm3 (4.2-5.4); White Blood Count 10.8 K/mm3 (4.4-11.0)
[2022-10-18 03:35] LABS: Anion Gap 5 (5-15); BUN 20 mg/dL (7-18); BUN/Creat Ratio 5.4 RATIO (10-20); Calcium,Total 7.9 mg/dL (8.5-10.1); Chloride 105 mmol/L (98-107); Creatinine, Serum 3.71 mg/dL (0.55-1.02); EST Glomerular Filtration Rate 13 mL/min (>60); Est Glom Filt Rate - Afr Amer 15 mL/min (>60); Estimated Creatinine Clearance 8.69 ml/min; Glucose 105 mg/dL (74-106); Sodium Level 138 mmol/L (136-145)
[2022-10-18 04:16] LABS: Eosinophil 1 % (0-5); Lymphocyte 19 % (19-41); Monocyte 4 % (0-10); Myelocyte 3 % (0-0); Neutrophil-Band 2 % (0-5); Neutrophil-Segmented 71 % (47-70); Platelet Estimate ADEQUATE (ADEQ); Red Cell Morphology NORM C+C NORMAL (NORM C&C); Total Cells Counted 100 (MANUAL DIFF)
[2022-10-18 04:17] LABS: Absolute Lymphocyte Count 2.06 X10^3/uL (0.83-4.51); Absolute Neutrophil Count 7.9 X10^3/uL (2.0-7.7); Lymphocyte # 2.06 X10^3/ul (0.83-4.51)
[2022-10-18] MEDS: Heparin Injection (Vial) 5,000 UNIT/ML VIAL 5000 UNIT SC ×3 (06:43→20:11)
[2022-10-18] MEDS: Levothyroxine 137 MCG Tablet 205.5 MCG PO (06:43)
--- NOTE | 2022-10-18 06:50 | PN.CC_ITS ---
Assessment & Plan Assessment/Plan (1) Septic shock: PLAN: Plan RECOMMENDATIONS: 1. Continue dialysis with volume removal 2. Possible reinitiation of vasopressors during dialysis 3. Increase activity as tolerated 4. Probable tunneled hemodialysis line on Friday 5. Continue Accu-Cheks and sliding scale insulin. Hold basal insulin 6. Possibly leave the intensive care unit if tolerates hemodialysis today IMPRESSIONS: 1. Septic shock secondary to bacterial peritonitis Peritoneal cultures are now showing coag negative staph. This appears to be a repeat infection from July. Patient was treated with 14 days of vancomycin at that time. Patient has not had very good volume removal with peritoneal dialysis in the setting, but has responded well to hemodialysis. Blood pressure continues to improve. Possible transition from the intensive care unit later today if able to tolerate dialysis. Okay to continue with conventional dialysis from my perspective. Patient on minimal pressors and this could be provided peripherally. Plan to continue vasopressor support to maintain mean arterial pressure at or above 65 mmHg. 2. Syncope Clinical suspicion that this was secondary to decreased intravascular volume secondary to problem #1. Patient does have a upper airway wheeze at this time, but this is likely secondary to fluid overload. Patient does appear to have some anasarca at this time. 3. History of chronic kidney disease on peritoneal dialysis Nephrology is following to assist with medical management. Anticipate dialysis today and Friday with a potential tunneled hemodialysis line on Friday. 4. Morbid obesity/hyperlipidemia/hypertension/hypothyroidism/diabetes mellitus/dysphagia Complicates care, management, recovery and prognosis. Continue supportive measures as noted above. Continue Accu-Cheks and sliding scale insulin coverage. May need to reinitiate basal insulin in the future as diet improves Subjective Subjective Patient did well overnight. Patient did receive levo transiently while on dialysis, but had 4 L removed. Patient is not currently reporting any chest pain. Patient is hoping to increase activity through the day today. Patient has been able to tolerate a p.o. diet with no complications. Objective Data Objective Data Vital Signs: Vital Signs Temp Pulse Resp BP Pulse Ox O2 Del Method O2 Flow Rate 36.8 C 70 20 H 134/32 H 96 Nasal Cannula 1 10/18/22 04:00 10/18/22 06:00 10/18/22 06:00 10/18/22 06:00 10/18/22 06:00 10/18/22 06:00 10/18/22 06:00 FiO2 98 10/17/22 08:14 Oxygen Flow Rate (L/min) 1 Oxygen Delivery Method Nasal Cannula Weight: 102.4 kg Body Mass Index (BMI) 44.3 Intake & Output: Intake and Output for Last 24 Hours 10/16/22 10/17/22 10/18/22 23:59 23:59 23:59 Intake Total 1273.39 / 1288.39 545 / 595 50 / 50 Output Total 3400 / 3400 4000 / 4000 Balance -2126.61 / -2111.61 -3455 / -3405 50 / 50 Lab / Micro Data Attestation: I reviewed the patient's lab results. 10/18/22 03:15 10/18/22 03:15 Labs: Laboratory Results - last 24 hr 10/16/22 16:43: POC Glucose 78 10/17/22 06:55: POC Glucose 116 H 10/17/22 11:59: POC Glucose 86 10/17/22 17:12: POC Glucose 118 H 10/17/22 20:18: POC Glucose 111 H 10/17/22 : Hep Bs Antigen Non-Reactive 10/18/22 03:15: WBC 10.8, RBC 2.42 L, Hgb 7.9 L, Hct 25.0 L, MCV 103.3 H, MCH 32.6 H, MCHC 31.6 L, RDW Std Deviation 66.3 H, RDW Coeff of Alanna 18.2 H, Plt Cou nt 229, MPV 9.7, Neut % (Auto) Not Reportable, Absolute Neuts (auto) 7.9 H, A bsolute Lymphs (auto) 2.06, Total Counted 100, Neutrophils % (Manual) 71 H, Band Neutrophils % 2, Lymphocytes % (Manual) 19, Monocytes % (Manual) 4, Eosinophils % (Manual) 1, Myelocytes % 3 H, Diff Path Review May , Platelet Estimate ADEQUATE, RBC Morphology NORM C+C, Sodium 138, Potassium 4.0, Chloride 105, Carbon Dioxide 28.0, Anion Gap 5, BUN 20 H, Creatinine 3.71 H, Estim Creat Clear Calc 8.69, Est GFR (MDRD) Af Amer 15 L, Est GFR (MDRD) Non-Af 13 L, BUN/Creatinine Ratio 5.4 L, Glucose 105, Calcium 7.9 L Micro: Microbiology 10/16/22 11:00 Fluid - Peritoneal Gram Stain - Final 10/16/22 11:00 Fluid - Peritoneal Body Fluid Culture - Preliminary No growth-Final to follow 10/11/22 13:30 Blood Culture (Wb) - Venous Blood Culture - Final No growth in 5 days. 10/11/22 12:45 Blood Culture (Wb) - Arm Right Blood Culture - Final No growth in 5 days. 10/12/22 12:50 Fluid - Paracentesis (Abd) Gram Stain - Final 10/12/22 12:50 Fluid - Paracentesis (Abd) Body Fluid Culture - Final Coag Negative Staph 10/12/22 12:50 Fluid - Paracentesis (Abd) Anaerobic Culture - Final No anaerobic bacteria isolated. Rhythm Strip Ectopy: - (Majority paced) Physical Exam Const alert and no apparent distress Constitutional Narrative: Anasarca improving. Still with hand swelling General Appearance: cooperative HEENT normocephalic, head/scalp atraumatic and moist oral mucous membranes Eyes PERRL, EOMs intact bilaterally and conjunctivae normal Neck supple Neck Narrative: Dialysis line is clean, dry and intact General: trachea midline and CVC in place Chest inspection of chest normal Resp normal respiratory effort Auscultation: diminished lung sounds; Negative for rales, rhonchi or wheezes Cardio regular rate, regular rhythm, no murmurs, no rub and no gallops GI normal to inspection, nondistended, normoactive bowel sounds Extremity Extremity Narrative: Right upper arm line noted General Extremity: edema; Negative for clubbing Skin no rashes or lesions noted Neuro CN's II-XII intact bilaterally, moves all extremities and no focal motor deficits Psych cooperative and affect normal Charges/Coding Visit Charges Inpatient E&M: 87399 Subs Hosp L3
[2022-10-18 07:04] LABS: Bedside Glucose 88 mg/dL (74-106)
[2022-10-18] MEDS: Budesonide Respules 0.5 MG/2 ML AMPUL.NEB. INHALATION ×2 (07:08→19:10)
[2022-10-18] MEDS: Ipratropium 0.5 MG/2.5 ML SOLUTION INHALATION ×3 (07:09→19:09)
[2022-10-18] MEDS: 0.9% Saline Lock 10 ML Syringe IV ×3 (07:53→16:31)
[2022-10-18] MEDS: 0.9% Normal Saline 1,000 ML IV.SOLN. 1000 ML OPERA.SITE (07:53)
[2022-10-18] MEDS: PureFlow B 3K Dialysis Soln 1 BAG 6 BAG PF (07:54)
--- NOTE | 2022-10-18 08:07 | PCM.PN.REN ---
Subjective Subjective Resting in bed. Seen and examined on hemodialysis. Patient reports feeling better again today. No complaints. No overnight events. Off Levophed. Objective Data Objective Data Vital Signs: Vital Signs Temp Pulse Resp BP Pulse Ox O2 Del Method O2 Flow Rate 96.6 F L 70 14 130/38 H 90 Nasal Cannula 1.5 10/18/22 07:35 10/18/22 08:02 10/18/22 08:02 10/18/22 08:02 10/18/22 08:02 10/18/22 08:02 10/18/22 08:02 FiO2 98 10/17/22 08:14 Oxygen Flow Rate (L/min) 1.5 Oxygen Delivery Method Nasal Cannula Weight: 102.4 kg Body Mass Index (BMI) 44.3 Intake & Output: Intake and Output for Last 24 Hours 10/16/22 10/17/22 10/18/22 23:59 23:59 23:59 Intake Total 1273.39 / 1288.39 545 / 595 50 / 50 Output Total 3400 / 3400 4000 / 4000 Balance -2126.61 / -2111.61 -3455 / -3405 50 / 50 Lab / Micro Data 10/18/22 03:15 10/18/22 03:15 Labs: Laboratory Results - last 24 hr 10/17/22 11:59: POC Glucose 86 10/17/22 17:12: POC Glucose 118 H 10/17/22 20:18: POC Glucose 111 H 10/17/22 : Hep Bs Antigen Non-Reactive 10/18/22 03:15: WBC 10.8, RBC 2.42 L, Hgb 7.9 L, Hct 25.0 L, MCV 103.3 H, MCH 32.6 H, MCHC 31.6 L, RDW Std Deviation 66.3 H, RDW Coeff of Alanna 18.2 H, Plt Count 229, MPV 9.7, Neut % (Auto) Not Reportable, Absolute Neuts (auto) 7.9 H, Absolute Lymphs (auto) 2.06, Total Counted 100, Neutrophils % (Manual) 71 H, Band Neutrophils % 2, Lymphocytes % (Manual) 19, Monocytes % (Manual) 4, Eosinophils % (Manual) 1, Myelocytes % 3 H, Diff Path Review May foll, Platelet Estimate ADEQUATE, RBC Morphology NORM C+C, Sodium 138, Potassium 4.0, Chloride 105, Carbon Dioxide 28.0, Anion Gap 5, BUN 20 H, Creatinine 3.71 H, Estim Creat Clear Calc 8.69, Est GFR (MDRD) Af Amer 15 L, Est GFR (MDRD) Non-Af 13 L, BUN/Creatinine Ratio 5.4 L, Glucose 105, Calcium 7.9 L 10/18/22 06:46: POC Glucose 88 Micro: Microbiology 10/16/22 11:00 Fluid - Peritoneal Gram Stain - Final 10/16/22 11:00 Fluid - Peritoneal Body Fluid Culture - Preliminary No growth-Final to follow 10/11/22 13:30 Blood Culture (Wb) - Venous Blood Culture - Final No growth in 5 days. 10/11/22 12:45 Blood Culture (Wb) - Arm Right Blood Culture - Final No growth in 5 days. 10/12/22 12:50 Fluid - Paracentesis (Abd) Gram Stain - Final 10/12/22 12:50 Fluid - Paracentesis (Abd) Body Fluid Culture - Final Coag Negative Staph 10/12/22 12:50 Fluid - Paracentesis (Abd) Anaerobic Culture - Final No anaerobic bacteria isolated. Rhythm Strip Ectopy: - (Majority paced) Physical Exam Narrative General: Alert and oriented x3, NAD. Cardiovascular: Normal S1, S2. No rubs, murmurs, or gallops. Respiratory: Lungs are diminished breath sounds posterior bases Abdomen: Normal bowel sounds, soft. Dressing clean dry and intact to PD catheter Extremities: pitting edema b/l legs, thighs, arms. edema to lower abdomen Nontunneled temporary left IJ dialysis catheter dressing clean, dry and intact Assessment & Plan Assessment/Plan (1) ESRD on peritoneal dialysis: (2) Septic shock: (3) Peritonitis associated with peritoneal dialysis: QUALIFIERS: Encounter type: initial encounter Qualified Code(s): T85.71XA - Infection and inflammatory reaction due to peritoneal dialysis catheter, initial encounter PLAN: Plan Impression/Plan: The patient is a 82-year-old woman with past history of ESRD, type 2 diabetes mellitus, hypertension, CAD, heart failure with preserved ejection fraction, PAD, hypothyroidism, and hyperlipidemia. The patient presented to the hospital on 10/11/2022 with syncope and was diagnosed with circulatory shock requiring IV vasopressor and volume expansion. - ESRD had been on PD; outpatient EDW was ~93 kg. While in hospital PD solution was 2.5% dianeal with no fluid removed. Peak weight around 110 kg. Because of repeated PD catheter infections, hypervolemia with not much fluid being able to be removed with peritoneal dialysis discussion held with patient and daughter about transitioning from peritoneal dialysis to hemodialysis. Both in agreement. Temporary hemodialysis line placed and patient underwent first hemodialysis session on 10/15. Patient has been dialyzing daily with total of 9 kg removed as of this morning. Patient to undergo hemodialysis again today over 4 hours and attempt around 4 L fluid removal as patient/blood pressure tolerates. Will not plan for any hemodialysis over the weekend. Next hemodialysis will be on Friday We will stop PhosLo (patient was not eating and last phosphorus 3.5) and will stop potassium supplement. Monitor potassium and phosphorus trends. CT A/P: Peritoneal dialysis catheter seen in right side of lower pelvis. - PD related peritonitis. Initial PD effluent cell count from 10/12 was 3383 WBC with 75% neutrophil on differential. PD culture from 10/12/2022 coag negative staph; blood cultures negative to date. ID following, patient had been on vancomycin and Zosyn. Now on cefazolin. Patient is in agreement to have PD catheter removed. Surgery team aware. -Off Levophed. Blood pressures have improved. Currently on midodrine 10 mg 3 times daily. -Hopeful move out of ICU. Discussed with Dr. Zuniga
[2022-10-18] MEDS: Midodrine HCl 5 MG Tablet 10 MG PO ×2 (08:12→11:49)
[2022-10-18] MEDS: Magnesium Chloride 64 MG Delay Rel.Tablet 128 MG PO (08:44)
[2022-10-18] MEDS: Aspirin E.C. 81 MG Tablet PO (08:44)
[2022-10-18] MEDS: Cyanocobalamin 500 MCG Tablet PO (08:45)
[2022-10-18] MEDS: buPROPion 100 MG Tablet PO ×2 (08:45→20:12)
[2022-10-18] MEDS: Pantoprazole Sodium 40 MG Tablet PO (08:45)
[2022-10-18] MEDS: Calcitriol 0.25 MCG Capsule PO (08:45)
[2022-10-18] MEDS: Gabapentin 100 MG Capsule PO ×2 (08:47→16:27)
[2022-10-18] MEDS: Epoetin Alfa epbx 10,000 UNITS/ML 20000 UNIT SC (08:53)
--- NOTE | 2022-10-18 09:38 | CASEMGMT ---
Discharge Planning Referral sent to both [facility] and [facility] via [facility]. Sravani Linares, Discharge Planning Asst.
[2022-10-18] MEDS: Ondansetron 4 MG/2 ML Vial IV ×2 (10:21→16:30)
[2022-10-18] MEDS: Acetaminophen 325 MG Tablet 650 MG PO (10:55)
[2022-10-18] MEDS: Heparin 10,000 UNITS/10 ML Vial IV (11:10)
--- NOTE | 2022-10-18 11:39 | PN.SURG_ITS ---
Subjective Subjective currently getting dialysis, did have some nausea and upset stomach this morning. Objective Data Objective Data Vital Signs: Vital Signs Temp Pulse Resp BP Pulse Ox O2 Del Method O2 Flow Rate 96.6 F L 70 16 124/39 H 97 Nasal Cannula 1.5 10/18/22 07:35 10/18/22 11:13 10/18/22 11:13 10/18/22 11:13 10/18/22 11:13 10/18/22 11:13 10/18/22 11:13 FiO2 98 10/17/22 08:14 Oxygen Flow Rate (L/min) 1.5 Oxygen Delivery Method Nasal Cannula Weight: 225 lb 12.054 oz Body Mass Index (BMI) 44.3 Intake & Output: Intake and Output for Last 24 Hours 10/16/22 10/17/22 10/18/22 23:59 23:59 23:59 Intake Total 1273.39 / 1288.39 545 / 595 50 / 50 Output Total 3400 / 3400 4000 / 4000 Balance -2126.61 / -2111.61 -3455 / -3405 50 / 50 Lab / Micro Data 10/18/22 03:15 10/18/22 03:15 Labs: Laboratory Results - last 24 hr 10/17/22 11:59: POC Glucose 86 10/17/22 17:12: POC Glucose 118 H 10/17/22 20:18: POC Glucose 111 H 10/17/22 : Hep Bs Antigen Non-Reactive 10/18/22 03:15: WBC 10.8, RBC 2.42 L, Hgb 7.9 L, Hct 25.0 L, MCV 103.3 H, MCH 32.6 H, MCHC 31.6 L, RDW Std Deviation 66.3 H, RDW Coeff of Alanna 18.2 H, Plt Count 229, MPV 9.7, Neut % (Auto) Not Reportable, Absolute Neuts (auto) 7.9 H, Absolute Lymphs (auto) 2.06, Total Counted 100, Neutrophils % (Manual) 71 H, Band Neutrophils % 2, Lymphocytes % (Manual) 19, Monocytes % (Manual) 4, Eosino phils % (Manual) 1, Myelocytes % 3 H, Diff Path Review May foll, Platelet Est imate ADEQUATE, RBC Morphology NORM C+C, Sodium 138, Potassium 4.0, Chloride 105, Carbon Dioxide 28.0, Anion Gap 5, BUN 20 H, Creatinine 3.71 H, Estim Creat Clear Calc 8.69, Est GFR (MDRD) Af Amer 15 L, Est GFR (MDRD) Non-Af 13 L, BUN/Creatinine Ratio 5.4 L, Glucose 105, Calcium 7.9 L 10/18/22 06:46: POC Glucose 88 Micro: Microbiology 10/16/22 11:00 Fluid - Peritoneal Gram Stain - Final 10/16/22 11:00 Fluid - Peritoneal Body Fluid Culture - Preliminary No growth-Final to follow 10/16/22 11:00 Fluid - Peritoneal Anaerobic Culture - Preliminary No growth in 48 hours. 10/11/22 13:30 Blood Culture (Wb) - Venous Blood Culture - Final No growth in 5 days. 10/11/22 12:45 Blood Culture (Wb) - Arm Right Blood Culture - Final No growth in 5 days. 10/12/22 12:50 Fluid - Paracentesis (Abd) Gram Stain - Final 10/12/22 12:50 Fluid - Paracentesis (Abd) Body Fluid Culture - Final Coag Negative Staph 10/12/22 12:50 Fluid - Paracentesis (Abd) Anaerobic Culture - Final No anaerobic bacteria isolated. Rhythm Strip Ectopy: - (Majority paced) Physical Exam Narrative Patient currently receiving dialysis?via temporary left IJ dialysis catheter Const oriented x3 and no apparent distress Resp normal respiratory effort Cardio regular rate Assessment & Plan Assessment/Plan (1) Peritonitis associated with peritoneal dialysis: QUALIFIERS: Encounter type: initial encounter Qualified Code(s): T85.71XA - Infection and inflammatory reaction due to peritoneal dialysis catheter, initial encounter PLAN: Plan We will plan for tunneled dialysis catheter early afternoon on Friday. We will plan to remove the PD catheter in the future as an outpatient. Patient and her family no further questions at this time. Dr. Roblero will be following over the weekend. Anyi Beverly M.D. Pager: [phone] [facility] [address] [place] [address], [address] [place] [address] Office: [phone] Charges/Coding Visit Charges Inpatient E&M: 01867 Subs Hosp L2
[2022-10-18 11:48] LABS: Bedside Glucose 72 mg/dL (74-106)
[2022-10-18] MEDS: Cefazolin 1 GM/50 ML BAG IV (11:50)
[2022-10-18 13:24] LABS: Pathologist Comment/Body Fluid Reviewed
--- NOTE | 2022-10-18 15:43 | PCM.PN.HOSP ---
Reason for Visit Reason for Visit: Syncope Subjective Subjective Patient is feeling much better. Currently on dialysis with plans for 4 L removal again today. Needed Levophed very briefly for about the last 45 minutes of dialysis yesterday but then has been off since shortly after dialysis was completed. Was able to eat without any significant difficulty. Objective Data Objective Data Vital Signs: Vital Signs Temp Pulse Resp BP Pulse Ox O2 Del Method O2 Flow Rate 97.1 F L 70 18 130/40 H 98 Nasal Cannula 1 10/18/22 12:00 10/18/22 15:00 10/18/22 15:00 10/18/22 15:00 10/18/22 15:00 10/18/22 15:00 10/18/22 15:00 FiO2 98 10/17/22 08:14 Oxygen Flow Rate (L/min) 1 Oxygen Delivery Method Nasal Cannula Weight: 98.6 kg Body Mass Index (BMI) 42.7 Intake & Output: Intake and Output for Last 24 Hours 10/16/22 10/17/22 10/18/22 23:59 23:59 23:59 Intake Total 1273.39 / 1288.39 545 / 595 250 / 250 Output Total 3400 / 3400 4000 / 4000 3800 / 3800 Balance -2126.61 / -2111.61 -3455 / -3405 -3550 / -3550 Lab / Micro Data 10/18/22 03:15 10/18/22 03:15 Labs: Laboratory Results - last 24 hr 10/16/22 11:00: Fl Pathologist Comment Reviewed 10/17/22 17:12: POC Glucose 118 H 10/17/22 20:18: POC Glucose 111 H 10/18/22 03:15: WBC 10.8, RBC 2.42 L, Hgb 7.9 L, Hct 25.0 L, MCV 103.3 H, MCH 32.6 H, MCHC 31.6 L, RDW Std Deviation 66.3 H, RDW Coeff of Alanna 18.2 H, Plt Count 229, MPV 9.7, Neut % (Auto) Not Reportable, Absolute Neuts (auto) 7.9 H, Absolute Lymphs (auto) 2.06, Total Counted 100, Neutrophils % (Manual) 71 H, Band Neutrophils % 2, Lymphocytes % (Manual) 19, Monocytes % (Manual) 4, Eosinophils % (Manual) 1, Myelocytes % 3 H, Diff Path Review May foll, Platelet Estimate ADEQUATE, RBC Morphology NORM C+C, Sodium 138, Potassium 4.0, Chloride 105, Carbon Dioxide 28.0, Anion Gap 5, BUN 20 H, Creatinine 3.71 H, Estim Creat Clear Calc 8.69, Est GFR (MDRD) Af Amer 15 L, Est GFR (MDRD) Non-Af 13 L, BUN/Creatinine Ratio 5.4 L, Glucose 105, Calcium 7.9 L 10/18/22 06:46: POC Glucose 88 10/18/22 11:30: POC Glucose 72 L Micro: Microbiology 10/16/22 11:00 Fluid - Peritoneal Gram Stain - Final 10/16/22 11:00 Fluid - Peritoneal Body Fluid Culture - Preliminary No growth-Final to follow 10/16/22 11:00 Fluid - Peritoneal Anaerobic Culture - Preliminary No growth in 48 hours. 10/11/22 13:30 Blood Culture (Wb) - Venous Blood Culture - Final No growth in 5 days. 10/11/22 12:45 Blood Culture (Wb) - Arm Right Blood Culture - Final No growth in 5 days. 10/12/22 12:50 Fluid - Paracentesis (Abd) Gram Stain - Final 10/12/22 12:50 Fluid - Paracentesis (Abd) Body Fluid Culture - Final Coag Negative Staph 10/12/22 12:50 Fluid - Paracentesis (Abd) Anaerobic Culture - Final No anaerobic bacteria isolated. Rhythm Strip Ectopy: - (Majority paced) Physical Exam Const alert, oriented x3 and well nourished; Negative for average body habitus or healthy appearing Constitutional Narrative: Morbidly obese, chronically ill-appearing white female, lying in bed, appears comfortable at this time, continues to appear daily as if she is feeling better and better, appears nontoxic, watching TV and currently on dialysis HEENT head/scalp atraumatic and moist oral mucous membranes HEENT Narrative: Mallampati 3, no thrush Head and Scalp: normocephalic Resp normal respiratory effort, no retractions, no use of accessory muscles and clear to auscultation bilaterally Auscultation: Negative for rales, rhonchi or wheezes Cardio regular rate, regular rhythm, S1 normal heart sound, S2 normal heart sound, no murmurs, no rub, no gallops and no clicks GI normal to inspection, nondistended, normoactive bowel sounds and soft to palpation GI Narrative: PD catheter in place currently appears benign Neuro oriented x3, moves all extremities and no focal motor deficits Speech: speech normal Psych affect normal Psych Narrative: Pleasant and appropriately interactive eye contact is good and mood seems stable Assessment & Plan Assessment/Plan (1) Septic shock: (2) Peritonitis associated with peritoneal dialysis: QUALIFIERS: Encounter type: initial encounter Qualified Code(s): T85.71XA - Infection and inflammatory reaction due to peritoneal dialysis catheter, initial encounter (3) Hypokalemia: (4) Hyperglycemia: (5) Dysphagia: QUALIFIERS: Dysphagia type: oral phase Qualified Code(s): R13.11 - Dysphagia, oral phase PLAN: Plan Septic shock secondary to peritoneal dialysis catheter induced coag negative staph bacterial peritonitis -Cultures currently showing coag negative staph -Continue cefazolin and ID recommends 2 more weeks of IV antibiotics with cefazolin 2 g given with hemodialysis and tentative stop date of 10/25/2022 as long as repeat fluid culture is negative -Thus far repeat peritoneal fluid cultures are negative -No Levophed required for dialysis today and has been off since shortly after dialysis yesterday--> we will transfer to medical floor -Continue midodrine 10 mg p.o. 3 times daily -ID following-appreciate input -Nephro is following-appreciate input -Critical care medicine is following-appreciate input Dysphagia -Speech therapy following -EGD was unremarkable -Patient is on a general diet-renal -Continue compensatory strategies per direction of speech therapy -Continue speech therapy Debility -PT/OT following -Will need SNF at discharge--> anticipate discharge towards the middle of next week End-stage renal disease -Plan is for transition from PD to HD at the time of discharge -PD catheter removal at the discretion of general surgery -Nephrology is following -peritoneal fluid growing staph species with repeat cultures showing no growth to date -Continue antibiotics per ID -Plan is for tunneled dialysis catheter placement on Friday -Patient is considerably above her dry weight but improving with dialysis--> approximately 10 kg currently Hypothyroidism -Continue Synthroid CAD/hypertension/hyperlipidemia -Continue aspirin -Continue statin -Hold Coreg due to hypotension GERD -Continue PPI Chronic anemia secondary to renal disease -hemoglobin stable DM-2 -Continue sliding scale -Fasting blood sugar this morning is 105 -Continue to monitor for reinitiation of home Lantus 8 units--> currently on hold -A.m. fasting blood sugars 80 -Continue sliding scale insulin -Continue Accu-Cheks -Hold Actos while patient hospitalized History of asthma -Currently stable -Continue home Singulair -stable on room air -Continue nebs as needed Glaucoma -Continue eyedrops Depression/anxiety -Continue home Wellbutrin DVT prophylaxis -Continue heparin SQ 3 times daily CODE STATUS -DNR CCA without intubation Disposition: -Patient is stable for transfer to medical floor will be sent to PCU. Charges/Coding Visit Charges Inpatient E&M: 83522 Subs Hosp L2
[2022-10-18 16:37] LABS: Bedside Glucose 143 mg/dL (74-106)
[2022-10-18] MEDS: Latanoprost 0.005% 1 Bottle 1 DRP EACH EYE (20:10)
[2022-10-18] MEDS: Atorvastatin Calcium 80 MG Tablet PO (20:11)
[2022-10-18] MEDS: Montelukast 10 MG Tablet PO (20:12)
[2022-10-18 20:36] LABS: Bedside Glucose 145 mg/dL (74-106)
[2022-10-19] VITALS (15 sets, daily range): BP systolic 118–152; BP diastolic 28–58; PULSE 69–70; RESP 16–20; TEMP 36.4–37; O2SAT 90–96; BMI 43.4
[2022-10-19 04:49] LABS: Hematocrit 24.4 % (37-47); Hemoglobin 7.8 g/dL (12.0-15.0); Mean Corpuscular Hgb 33.6 pg (27.0-32.0); Mean Corpuscular Volume 105.2 fL (81-99); Mean Platelet Vol. 9.9 fl (6.2-12.0); POSITIVE COUNT YES; POSITIVE MORPHOLOGY YES; Platelet Count 248 K/mm3 (150-450); RBC Distribution Width CV 18.6 % (11.6-14.6); RBC Distribution Width SD 68.6 fl (35.1-43.9); Red Blood Count 2.32 M/mm3 (4.2-5.4); White Blood Count 11.9 K/mm3 (4.4-11.0)
[2022-10-19 04:51] LABS: Differential Indicated MANUAL DIFF
[2022-10-19 05:09] LABS: ALB/GLOB Ratio 0.4 RATIO (0.9-2.4); AST(SGOT) 39 U/L (15-37); Alanine Aminotransfer ALT/SGPT 7 U/L (13-56); Albumin, Serum 1.3 g/dL (3.2-5.0); Alkaline Phosphatase 97 U/L (45-117); Anion Gap 3 (5-15); BUN 17 mg/dL (7-18); BUN/Creat Ratio 4.9 RATIO (10-20); Calcium,Total 7.9 mg/dL (8.5-10.1); Chloride 105 mmol/L (98-107); Creatinine, Serum 3.46 mg/dL (0.55-1.02); EST Glomerular Filtration Rate 14 mL/min (>60); Est Glom Filt Rate - Afr Amer 16 mL/min (>60); Estimated Creatinine Clearance 9.31 ml/min; Globulin 3.3 g/dL (2.2-4.2); Glucose 169 mg/dL (74-106); Protein, Total 4.6 g/dL (6.4-8.2); Sodium Level 136 mmol/L (136-145)
[2022-10-19] MEDS: Heparin Injection (Vial) 5,000 UNIT/ML VIAL 5000 UNIT SC ×3 (05:34→21:38)
[2022-10-19] MEDS: Levothyroxine 137 MCG Tablet 205.5 MCG PO (05:35)
[2022-10-19] MEDS: Acetaminophen 325 MG Tablet 650 MG PO ×2 (05:35→21:38)
[2022-10-19 06:16] LABS: Basophil 1 % (0-1); Eosinophil 2 % (0-5); Lymphocyte 24 % (19-41); Metamyelocyte 1 % (0-1); Monocyte 6 % (0-10); Myelocyte 3 % (0-0); Neutrophil-Band 7 % (0-5); Neutrophil-Segmented 56 % (47-70); Platelet Estimate ADEQUATE (ADEQ); Total Cells Counted 100 (MANUAL DIFF)
[2022-10-19 06:17] LABS: Absolute Lymphocyte Count 2.85 X10^3/uL (0.83-4.51); Absolute Neutrophil Count 7.5 X10^3/uL (2.0-7.7); Anisocytosis 1+; Lymphocyte # 2.85 X10^3/ul (0.83-4.51); Macrocytosis 1+; Neutrophil # 7.49 X10^3/uL (2.7-7.7)
[2022-10-19 06:18] LABS: Nucleated Red Bld Cells,Manual 1 % (0-5)
[2022-10-19] MEDS: Ipratropium 0.5 MG/2.5 ML SOLUTION INHALATION ×2 (07:06→19:29)
[2022-10-19] MEDS: Budesonide Respules 0.5 MG/2 ML AMPUL.NEB. INHALATION ×2 (07:06→19:29)
--- NOTE | 2022-10-19 07:12 | PCM.PN.INT ---
Assessment & Plan Assessment/Plan (1) Septic shock: PLAN: Plan RECOMMENDATIONS: 1. Anticipate dialysis on Friday with tunneled hemodialysis catheter on Friday 2. Outpatient evaluation for obstructive sleep apnea patient is agreeable 3. Increase activity as tolerated 4. Defer to surgery on whether hemodialysis line should be removed on Friday 5. Continue Accu-Cheks and sliding scale insulin. Hold basal insulin 6. Hemodynamically stable on room air. Will sign off from a pulmonary critical care perspective IMPRESSIONS: 1. Septic shock secondary to bacterial peritonitis Peritoneal cultures are now showing coag negative staph. This appears to be a repeat infection from July. Patient was treated with 14 days of vancomycin at that time. Patient has not had very good volume removal with peritoneal dialysis in the setting, but has responded well to hemodialysis. Blood pressure continues to be stable. Patient currently PCU status. Okay to continue with conventional dialysis from my perspective. Patient would likely benefit from removal of peritoneal dialysis catheter from my perspective 2. Syncope Resolved. Likely secondary to #1. Clinical suspicion that this was secondary to decreased intravascular volume secondary to problem #1. Upper airway wheeze has resolved with fluid removal.. Patient does appear to have some anasarca at this time. 3. History of chronic kidney disease on peritoneal dialysis Nephrology is following to assist with medical management. Anticipate dialysis Friday with a potential tunneled hemodialysis line on Friday. 4. Morbid obesity/hyperlipidemia/hypertension/hypothyroidism/diabetes mellitus/dysphagia Complicates care, management, recovery and prognosis. Continue supportive measures as noted above. Continue Accu-Cheks and sliding scale insulin coverage. May need to reinitiate basal insulin in the future as diet improves Subjective Subjective Patient did well overnight. No acute issues were reported. Patient did not require pressors with hemodialysis. Patient states that she feels better. Hand edema is much improved after yesterday's dialysis. Objective Data Objective Data Patient was able to stand at the bedside yesterday for a brief period of time, but did not ambulate Vital Signs: Vital Signs Temp Pulse Resp BP Pulse Ox O2 Del Method O2 Flow Rate 37.0 C 70 18 125/31 H 93 Room Air 1 10/19/22 04:00 10/19/22 07:08 10/19/22 07:08 10/19/22 07:00 10/19/22 07:00 10/19/22 07:00 10/19/22 03:00 FiO2 98 07/20/23 08:14 Oxygen Flow Rate (L/min) 1 Oxygen Delivery Method Room Air Weight: 100.5 kg Body Mass Index (BMI) 43.4 Intake & Output: Intake and Output for Last 24 Hours 10/17/22 10/18/22 10/19/22 23:59 23:59 23:59 Intake Total 545 / 595 500 / 500 100 / 100 Output Total 4000 / 4000 3800 / 3800 Balance -3455 / -3405 -3300 / -3300 100 / 100 Lab / Micro Data Attestation: I reviewed the patient's lab results. 10/19/22 04:35 10/19/22 04:35 Labs: Laboratory Results - last 24 hr 10/16/22 11:00: Fl Pathologist Comment Reviewed 10/18/22 11:30: POC Glucose 72 L 10/18/22 16:15: POC Glucose 143 H 10/18/22 20:10: POC Glucose 145 H 10/19/22 04:35: WBC 11.9 H, RBC 2.32 L, Hgb 7.8 L, Hct 24.4 L, MCV 105.2 H, MCH 33.6 H, MCHC 32.0, RDW Std Deviation 68.6 H, RDW Coeff of Alanna 18.6 H, Plt Count 248, MPV 9.9, Neut % (Auto) Not Reportable, Absolute Neuts (auto) 7.5, Absolute Lymphs (auto) 2.85, Total Counted 100, Neutrophils % (Manual) 56, Band Neutrophils % 7 H, Lymphocytes % (Manual) 24, Monocytes % (Manual) 6, Eosinophils % (Manual) 2, Basophils % (Manual) 1, Metamyelocytes % 1, Myelocytes % 3 H, Nucleated RBCs/100 WBC 1, Diff Path Review July, Platelet Estimate ADEQUATE, Anisocytosis 1+, Macrocytosis 1+, Sodium 136, Potassium 4.0, Chloride 105, Carbon Dioxide 28.0, Anion Gap 3 L, BUN 17, Creatinine 3.46 H, Estim Creat Clear Calc 9.31, Est GFR (MDRD) Af Amer 16 L, Est GFR (MDRD) Non-Af 14 L, BUN/Creatinine Ratio 4.9 L, Glucose 169 H, Calcium 7.9 L, Total Bilirubin 0.20, AST 39 H, ALT 7 L, Alkaline Phosphatase 97, Total Protein 4.6 L, Albumin 1.3 L, Globulin 3.3, Albumin/Globulin Ratio 0.4 L Micro: Microbiology 10/16/22 11:00 Fluid - Peritoneal Gram Stain - Final 10/16/22 11:00 Fluid - Peritoneal Body Fluid Culture - Preliminary No growth-Final to follow 10/16/22 11:00 Fluid - Peritoneal Anaerobic Culture - Preliminary No growth in 48 hours. 10/11/22 13:30 Blood Culture (Wb) - Venous Blood Culture - Final No growth in 5 days. 10/11/22 12:45 Blood Culture (Wb) - Arm Right Blood Culture - Final No growth in 5 days. 10/12/22 12:50 Fluid - Paracentesis (Abd) Gram Stain - Final 10/12/22 12:50 Fluid - Paracentesis (Abd) Body Fluid Culture - Final Coag Negative Staph 10/12/22 12:50 Fluid - Paracentesis (Abd) Anaerobic Culture - Final No anaerobic bacteria isolated. Rhythm Strip Ectopy: - (Majority paced) Physical Exam Const alert and no apparent distress Constitutional Narrative: Anasarca improving. Still with hand swelling. No conversational dyspnea General Appearance: cooperative HEENT normocephalic, head/scalp atraumatic and moist oral mucous membranes Eyes PERRL, EOMs intact bilaterally and conjunctivae normal Neck supple Neck Narrative: Dialysis line is clean, dry and intact General: trachea midline and CVC in place Chest inspection of chest normal Resp normal respiratory effort Auscultation: diminished lung sounds; Negative for rales, rhonchi or wheezes Cardio regular rate, regular rhythm, no murmurs, no rub and no gallops GI normal to inspection, nondistended, normoactive bowel sounds Extremity Extremity Narrative: Right upper arm line noted General Extremity: edema; Negative for clubbing Skin no rashes or lesions noted Neuro CN's II-XII intact bilaterally, moves all extremities and no focal motor deficits Psych cooperative and affect normal Charges/Coding Visit Charges Inpatient E&M: 62688 Subs Hosp L2
[2022-10-19] MEDS: Midodrine HCl 5 MG Tablet 10 MG PO ×3 (10:06→16:28)
[2022-10-19] MEDS: Aspirin E.C. 81 MG Tablet PO (10:06)
[2022-10-19] MEDS: Cyanocobalamin 500 MCG Tablet PO (10:07)
[2022-10-19] MEDS: Magnesium Chloride 64 MG Delay Rel.Tablet 128 MG PO (10:08)
[2022-10-19] MEDS: Pantoprazole Sodium 40 MG Tablet PO (10:08)
[2022-10-19] MEDS: buPROPion 100 MG Tablet PO ×2 (10:08→21:38)
--- NOTE | 2022-10-19 10:12 | PCM.PN.SRG ---
Subjective Subjective Patient was seen and examined at bedside this morning for rounds. Nursing reports that patient has been somewhat lethargic for them following dialysis yesterday. They deny any need for vasopressors since dialysis. For her part, Mrs. Banegas denies any discomfort of her abdomen and states she is simply tired. Patient awaiting transfer to PCU. Objective Data Objective Data Vital Signs: Vital Signs Temp Pulse Resp BP Pulse Ox O2 Del Method O2 Flow Rate 98.6 F 70 18 125/31 H 93 Room Air 1 10/19/22 04:00 10/19/22 07:08 10/19/22 07:08 10/19/22 07:00 10/19/22 07:00 10/19/22 07:00 10/19/22 03:00 FiO2 98 10/17/22 08:14 Oxygen Flow Rate (L/min) 1 Oxygen Delivery Method Room Air Weight: 221 lb 9.033 oz Body Mass Index (BMI) 43.4 Intake & Output: Intake and Output for Last 24 Hours 10/17/22 10/18/22 10/19/22 23:59 23:59 23:59 Intake Total 545 / 595 500 / 500 100 / 100 Output Total 4000 / 4000 3800 / 3800 Balance -3455 / -3405 -3300 / -3300 100 / 100 Lab / Micro Data 10/19/22 04:35 10/19/22 04:35 Labs: Laboratory Results - last 24 hr 10/16/22 11:00: Fl Pathologist Comment Reviewed 10/18/22 11:30: POC Glucose 72 L 10/18/22 16:15: POC Glucose 143 H 10/18/22 20:10: POC Glucose 145 H 10/19/22 04:35: WBC 11.9 H, RBC 2.32 L, Hgb 7.8 L, Hct 24.4 L, MCV 105.2 H, MCH 33.6 H, MCHC 32.0, RDW Std Deviation 68.6 H, RDW Coeff of Alanna 18.6 H, Plt Count 248, MPV 9.9, Neut % (Auto) Not Reportable, Absolute Neuts (auto) 7.5, Absolute Lymphs (auto) 2.85, Total Counted 100, Neutrophils % (Manual) 56, Band Neutrophils % 7 H, Lymphocytes % (Manual) 24, Monocytes % (Manual) 6, Eosinophils % (Manual) 2, Basophils % (Manual) 1, Metamyelocytes % 1, Myelocytes % 3 H, Nucleated RBCs/100 WBC 1, Diff Path Review May , Platelet Estimate ADEQUATE, Anisocytosis 1+, Macrocytosis 1+, Sodium 136, Potassium 4.0, Chloride 105, Carbon Dioxide 28.0, Anion Gap 3 L, BUN 17, Creatinine 3.46 H, Estim Creat Clear Calc 9.31, Est GFR (MDRD) Af Amer 16 L, Est GFR (MDRD) Non-Af 14 L, BUN/Creatinine Ratio 4.9 L, Glucose 169 H, Calcium 7.9 L, Total Bilirubin 0.20, AST 39 H, ALT 7 L, Alkaline Phosphatase 97, Total Protein 4.6 L, Albumin 1.3 L, Globulin 3.3, Albumin/Globulin Ratio 0.4 L Micro: Microbiology 10/16/22 11:00 Fluid - Peritoneal Gram Stain - Final 10/16/22 11:00 Fluid - Peritoneal Body Fluid Culture - Final Culture exhibits no growth. 10/16/22 11:00 Fluid - Peritoneal Anaerobic Culture - Preliminary No growth in 48 hours. 10/11/22 13:30 Blood Culture (Wb) - Venous Blood Culture - Final No growth in 5 days. 10/11/22 12:45 Blood Culture (Wb) - Arm Right Blood Culture - Final No growth in 5 days. 10/12/22 12:50 Fluid - Paracentesis (Abd) Gram Stain - Final 10/12/22 12:50 Fluid - Paracentesis (Abd) Body Fluid Culture - Final Coag Negative Staph 10/12/22 12:50 Fluid - Paracentesis (Abd) Anaerobic Culture - Final No anaerobic bacteria isolated. Rhythm Strip Ectopy: - (Majority paced) Physical Exam Const Constitutional Narrative: Oriented but lethargic Neck Neck Narrative: Patient with clean, dry dressing to base of right neck. Appropriate?appearing temporary hemodialysis catheter in left neck Chest Chest Narrative: No signs of rash, cellulitis, or other concerning findings to the anterior right chest wall Resp normal respiratory effort GI GI Narrative: Obese, nondistended, peritoneal dialysis catheter emanating from right abdominal wall. Soft and nontender to palpation x4 quadrants. Assessment & Plan Assessment/Plan (1) Peritonitis associated with peritoneal dialysis: QUALIFIERS: Encounter type: initial encounter Qualified Code(s): T85.71XA - Infection and inflammatory reaction due to peritoneal dialysis catheter, initial encounter PLAN: Patient no longer demonstrates signs of peritonitis and peritoneal fluid cultures are negative. Awaiting formal transition to hemodialysis with placement of a tunneled hemodialysis catheter tentatively set for 10/22/2022. PLAN: Plan Plan for tunneled dialysis catheter early afternoon on Friday10/22/2022. PD catheter removal planned for later outpatient operation. In anticipation above, patient should be held n.p.o. past midnight 10/21/2022.
[2022-10-19] MEDS: Gabapentin 100 MG Capsule PO ×2 (10:21→16:28)
[2022-10-19 10:58] LABS: Bedside Glucose 118 mg/dL (74-106)
--- NOTE | 2022-10-19 11:41 | PCM.PN.HOSP ---
Reason for Visit Reason for Visit: Syncope Subjective Subjective No events overnight. Patient has not required any Levophed in the last 48 hours. Tolerating hemodialysis well. No plans for HD today with reinitiation of HD on Friday. Tunneled dialysis catheter still planned for Friday. Objective Data Objective Data Vital Signs: Vital Signs Temp Pulse Resp BP Pulse Ox O2 Del Method O2 Flow Rate 98.6 F 70 18 125/31 H 93 Room Air 1 10/19/22 04:00 10/19/22 07:08 10/19/22 07:08 10/19/22 07:00 10/19/22 07:00 10/19/22 07:00 10/19/22 03:00 FiO2 98 10/17/22 08:14 Oxygen Flow Rate (L/min) 1 Oxygen Delivery Method Room Air Weight: 100.5 kg Body Mass Index (BMI) 43.4 Intake & Output: Intake and Output for Last 24 Hours 10/17/22 10/18/22 10/19/22 23:59 23:59 23:59 Intake Total 545 / 595 500 / 500 100 / 100 Output Total 4000 / 4000 3800 / 3800 Balance -3455 / -3405 -3300 / -3300 100 / 100 Lab / Micro Data 10/19/22 04:35 10/19/22 04:35 Labs: Laboratory Results - last 24 hr 10/16/22 11:00: Fl Pathologist Comment Reviewed 10/18/22 11:30: POC Glucose 72 L 10/18/22 16:15: POC Glucose 143 H 10/18/22 20:10: POC Glucose 145 H 10/19/22 04:35: WBC 11.9 H, RBC 2.32 L, Hgb 7.8 L, Hct 24.4 L, MCV 105.2 H, MCH 33.6 H, MCHC 32.0, RDW Std Deviation 68.6 H, RDW Coeff of Alanna 18.6 H, Plt Count 248, MPV 9.9, Neut % (Auto) Not Reportable, Absolute Neuts (auto) 7.5, Absolute Lymphs (auto) 2.85, Total Counted 100, Neutrophils % (Manual) 56, Band Neutrophils % 7 H, Lymphocytes % (Manual) 24, Monocytes % (Manual) 6, Eosinophils % (Manual) 2, Basophils % (Manual) 1, Metamyelocytes % 1, Myelocytes % 3 H, Nucleated RBCs/100 WBC 1, Diff Path Review May foll, Platelet Estimate ADEQUATE, Anisocytosis 1+, Macrocytosis 1+, Sodium 136, Potassium 4.0, Chloride 105, Carbon Dioxide 28.0, Anion Gap 3 L, BUN 17, Creatinine 3.46 H, Estim Creat Clear Calc 9.31, Est GFR (MDRD) Af Amer 16 L, Est GFR (MDRD) Non-Af 14 L, BUN/Creatinine Ratio 4.9 L, Glucose 169 H, Calcium 7.9 L, Total Bilirubin 0.20, AST 39 H, ALT 7 L, Alkaline Phosphatase 97, Total Protein 4.6 L, Albumin 1.3 L, Globulin 3.3, Albumin/Globulin Ratio 0.4 L 10/19/22 10:03: POC Glucose 118 H Micro: Microbiology 10/16/22 11:00 Fluid - Peritoneal Gram Stain - Final 10/16/22 11:00 Fluid - Peritoneal Body Fluid Culture - Final Culture exhibits no growth. 10/16/22 11:00 Fluid - Peritoneal Anaerobic Culture - Preliminary No growth in 48 hours. 10/11/22 13:30 Blood Culture (Wb) - Venous Blood Culture - Final No growth in 5 days. 10/11/22 12:45 Blood Culture (Wb) - Arm Right Blood Culture - Final No growth in 5 days. 10/12/22 12:50 Fluid - Paracentesis (Abd) Gram Stain - Final 10/12/22 12:50 Fluid - Paracentesis (Abd) Body Fluid Culture - Final Coag Negative Staph 10/12/22 12:50 Fluid - Paracentesis (Abd) Anaerobic Culture - Final No anaerobic bacteria isolated. Rhythm Strip Ectopy: - (Majority paced) Physical Exam Const alert, oriented x3 and well nourished; Negative for average body habitus or healthy appearing Constitutional Narrative: Morbidly obese, chronically ill-appearing white female, lying in bed, napping, awakens and is appropriate, nontoxic, appears comfortable, nursing at bedside HEENT head/scalp atraumatic and moist oral mucous membranes HEENT Narrative: Mallampati 3, no thrush Head and Scalp: normocephalic Neck Neck Narrative: Dialysis catheter in place with oozing at site Resp normal respiratory effort, no retractions, no use of accessory muscles and clear to auscultation bilaterally Auscultation: Negative for rales, rhonchi or wheezes Cardio regular rate, regular rhythm, S1 normal heart sound, S2 normal heart sound, no murmurs, no rub, no gallops and no clicks GI normal to inspection, nondistended, normoactive bowel sounds, soft to palpation and non-tender Neuro oriented x3, moves all extremities and no focal motor deficits Speech: speech normal Psych affect normal Psych Narrative: Very pleasant Assessment & Plan Assessment/Plan (1) Septic shock: (2) Peritonitis associated with peritoneal dialysis: QUALIFIERS: Encounter type: initial encounter Qualified Code(s): T85.71XA - Infection and inflammatory reaction due to peritoneal dialysis catheter, initial encounter (3) Hypokalemia: (4) Hyperglycemia: (5) Dysphagia: QUALIFIERS: Dysphagia type: oral phase Qualified Code(s): R13.11 - Dysphagia, oral phase PLAN: Plan Septic shock secondary to peritoneal dialysis catheter induced coag negative staph bacterial peritonitis -Cultures currently showing coag negative staph -Patient has been off pressors for 48 hours now -Continue cefazolin and ID recommends 2 more weeks of IV antibiotics with cefazolin 2 g given with hemodialysis and tentative stop date of 10/25/2022 as long as repeat fluid culture is negative -Aerobic cultures are final and no growth on peritoneal fluid and anaerobic cultures are negative at 48 hours -No Levophed required for dialysis today and has been off since shortly after dialysis yesterday--> we will transfer to medical floor -Continue midodrine 10 mg p.o. 3 times daily -ID following-appreciate input -Nephro is following-appreciate input -Critical care medicine is following-appreciate input Dysphagia -Speech therapy following -EGD was unremarkable on 10/16/2022 -Patient is on a general diet-renal -Continue compensatory strategies per direction of speech therapy -Continue speech therapy Debility -PT/OT following -Will need SNF at discharge--> anticipate discharge towards the middle of next week End-stage renal disease -Plan is for transition from PD to HD at the time of discharge -PD catheter removal at the discretion of general surgery -Nephrology is following -peritoneal fluid growing staph species with repeat cultures showing no growth to date and aerobic cultures are negative anaerobic cultures are negative at 48 hours -Continue antibiotics per ID -Plan is for tunneled dialysis catheter placement on [place] -Patient is getting much closer to dry weight Hypothyroidism -Continue Synthroid CAD/hypertension/hyperlipidemia -Continue aspirin -Continue statin -Hold Coreg due to hypotension GERD -Continue PPI Chronic anemia secondary to renal disease -hemoglobin stable DM-2 -Continue sliding scale -Fasting blood sugar this morning is 169 -Restart home Lantus 8 units -A.m. fasting blood sugars 80 -Continue sliding scale insulin -Continue Accu-Cheks -Hold Actos while patient hospitalized History of asthma -Currently stable -Continue home Singulair -stable on room air -Continue nebs as needed Glaucoma -Continue eyedrops Depression/anxiety -Continue home Wellbutrin DVT prophylaxis -Continue heparin SQ 3 times daily CODE STATUS -DNR CCA without intubation Disposition: -Anticipate discharge to skilled facility the middle of next week Charges/Coding Visit Charges Inpatient E&M: 23454 Subs Hosp L2
[2022-10-19] MEDS: Cefazolin 1 GM/50 ML BAG IV (12:48)
[2022-10-19 13:15] LABS: Bedside Glucose 137 mg/dL (74-106)
[2022-10-19 17:12] LABS: Bedside Glucose 123 mg/dL (74-106)
[2022-10-19] MEDS: Montelukast 10 MG Tablet PO (21:38)
[2022-10-19] MEDS: 0.9% Saline Lock 10 ML Syringe IV (21:38)
[2022-10-19] MEDS: Atorvastatin Calcium 80 MG Tablet PO (21:38)
[2022-10-19] MEDS: Latanoprost 0.005% 1 Bottle 1 DRP EACH EYE (21:39)
[2022-10-19 22:10] LABS: Bedside Glucose 124 mg/dL (74-106)
[2022-10-20] VITALS (8 sets, daily range): BP systolic 114–146; BP diastolic 30–55; PULSE 69–80; RESP 18; TEMP 36.1–36.5; O2SAT 93–100; BMI 43.7
[2022-10-20 06:01] LABS: Hematocrit 23.3 % (37-47); Hemoglobin 7.2 g/dL (12.0-15.0); Mean Corp Hgb Conc 30.9 g/dL (32-36); Mean Corpuscular Hgb 32.9 pg (27.0-32.0); Mean Corpuscular Volume 106.4 fL (81-99); POSITIVE COUNT YES; POSITIVE MORPHOLOGY YES; Platelet Count 284 K/mm3 (150-450); RBC Distribution Width CV 18.7 % (11.6-14.6); RBC Distribution Width SD 70.4 fl (35.1-43.9); Red Blood Count 2.19 M/mm3 (4.2-5.4)
[2022-10-20 06:04] LABS: Differential Indicated MANUAL DIFF
[2022-10-20] MEDS: Heparin Injection (Vial) 5,000 UNIT/ML VIAL 5000 UNIT SC ×3 (06:26→21:48)
[2022-10-20] MEDS: Levothyroxine 137 MCG Tablet 205.5 MCG PO (06:26)
[2022-10-20] MEDS: Ipratropium 0.5 MG/2.5 ML SOLUTION INHALATION ×3 (06:48→21:35)
[2022-10-20] MEDS: Budesonide Respules 0.5 MG/2 ML AMPUL.NEB. INHALATION ×2 (06:48→21:35)
[2022-10-20 06:50] LABS: Anisocytosis 2+; Macrocytosis 1+; Platelet Estimate ADEQUATE (ADEQ); Red Cell Morphology NORM C+C NORMAL (NORM C&C)
[2022-10-20 06:51] LABS: Anion Gap 6 (5-15); BUN 24 mg/dL (7-18); BUN/Creat Ratio 5.1 RATIO (10-20); Calcium,Total 8.5 mg/dL (8.5-10.1); Chloride 105 mmol/L (98-107); Creatinine, Serum 4.72 mg/dL (0.55-1.02); EST Glomerular Filtration Rate 9 mL/min (>60); Est Glom Filt Rate - Afr Amer 11 mL/min (>60); Estimated Creatinine Clearance 6.83 ml/min; Glucose 99 mg/dL (74-106); Sodium Level 138 mmol/L (136-145)
[2022-10-20 06:57] LABS: Eosinophil 1 % (0-5); Lymphocyte 28 % (19-41); Metamyelocyte 1 % (0-1); Monocyte 5 % (0-10); Myelocyte 4 % (0-0); Neutrophil-Segmented 61 % (47-70); Nucleated Red Bld Cells,Manual 5 % (0-5); Total Cells Counted 105 (MANUAL DIFF)
[2022-10-20 06:59] LABS: Corrected WBC 15.1 K/mm3 (4.4-11.0)
[2022-10-20 07:01] LABS: Absolute Neutrophil Count 9.2 X10^3/uL (2.0-7.7)
[2022-10-20 07:02] LABS: Absolute Lymphocyte Count 4.22 X10^3/uL (0.83-4.51)
[2022-10-20 07:17] LABS: Bedside Glucose 99 mg/dL (74-106)
--- NOTE | 2022-10-20 08:36 | PCM.PN.SRG ---
Subjective Subjective Patient seen and examined during AM rounds. She appears much more alert today. She is found sitting upright in bed eating breakfast. She states that she feels better. She denies any abdominal discomfort and reports tolerance of her diet. Objective Data Objective Data Vital Signs: Vital Signs Temp Pulse Resp BP Pulse Ox O2 Del Method O2 Flow Rate 97 F L 75 18 114/30 L 93 Room Air 2 10/20/22 03:45 10/20/22 06:48 10/20/22 06:48 10/20/22 03:45 10/20/22 06:48 10/20/22 08:28 10/20/22 06:48 FiO2 98 10/17/22 08:14 Oxygen Flow Rate (L/min) 2 Oxygen Delivery Method Room Air Weight: 223 lb 12.307 oz Body Mass Index (BMI) 43.7 Intake & Output: Intake and Output for Last 24 Hours 10/18/22 10/19/22 10/20/22 23:59 23:59 23:59 Intake Total 500 / 500 730 / 830 100 / 100 Output Total 3800 / 3800 Balance -3300 / -3300 730 / 830 100 / 100 Lab / Micro Data 10/20/22 05:40 10/20/22 05:40 Labs: Laboratory Results - last 24 hr 10/19/22 10:03: POC Glucose 118 H 10/19/22 12:41: POC Glucose 137 H 10/19/22 16:24: POC Glucose 123 H 10/19/22 21:37: POC Glucose 124 H 10/20/22 05:40: WBC REHABILITATION CONSULTANT, Corrected WBC 15.1 H, RBC 2.19 L, Hgb 7.2 L, Hct 23.3 L, MCV 106.4 H, MCH 32.9 H, MCHC 30.9 L, RDW Std Deviation 70.4 H, RDW Coeff of Alanna 18.7 H, Plt Count 284, MPV 10.0, Neut % (Auto) Not Reportable, Absolute Neuts (auto) 9.2 H, Absolute Lymphs (auto) 4.22, Total Counted 105, Neutrophils % (Manual) 61, Lymphocytes % (Manual) 28, Monocytes % (Manual) 5, Eosinophils % (Manual) 1, Metamyelocytes % 1, Myelocytes % 4 H, Nucleated RBCs/100 WBC 5, Diff Path Review May foll, Platelet Estimate ADEQUATE, RBC Morphology NORM C+C, Anisocytosis 2+, Macrocytosis 1+, Sodium 138, Potassium 4.0, Chloride 105, Carbon Dioxide 27.0, Anion Gap 6, BUN 24 H, Creatinine 4.72 H, Estim Creat Clear Calc 6.83, Est GFR (MDRD) Af Amer 11 L, Est GFR (MDRD) Non-Af 9 L, BUN/Creatinine Ratio 5.1 L, Glucose 99, Calcium 8.5 10/20/22 06:24: POC Glucose 99 Micro: Microbiology 10/16/22 11:00 Fluid - Peritoneal Gram Stain - Final 10/16/22 11:00 Fluid - Peritoneal Body Fluid Culture - Final Culture exhibits no growth. 10/16/22 11:00 Fluid - Peritoneal Anaerobic Culture - Preliminary No growth in 48 hours. 10/11/22 13:30 Blood Culture (Wb) - Venous Blood Culture - Final No growth in 5 days. 10/11/22 12:45 Blood Culture (Wb) - Arm Right Blood Culture - Final No growth in 5 days. 10/12/22 12:50 Fluid - Paracentesis (Abd) Gram Stain - Final 10/12/22 12:50 Fluid - Paracentesis (Abd) Body Fluid Culture - Final Coag Negative Staph 10/12/22 12:50 Fluid - Paracentesis (Abd) Anaerobic Culture - Final No anaerobic bacteria isolated. Rhythm Strip Ectopy: - (Majority paced) Physical Exam Const oriented x3 and no apparent distress Constitutional Narrative: Alert Neck Neck Narrative: Patient with clean chlorhexidine dressing to right base of neck. Appropriate?appearing temporary hemodialysis catheter in left neck Chest Chest Narrative: No signs of rash, cellulitis, or other concerning findings to the anterior right chest wall Resp normal respiratory effort GI GI Narrative: Obese, nondistended, peritoneal dialysis catheter emanating from right abdominal wall. Soft and nontender to palpation x4 quadrants. Assessment & Plan Assessment/Plan (1) Peritonitis associated with peritoneal dialysis: QUALIFIERS: Encounter type: initial encounter Qualified Code(s): T85.71XA - Infection and inflammatory reaction due to peritoneal dialysis catheter, initial encounter PLAN: Patient no longer demonstrates signs of peritonitis and peritoneal fluid cultures are negative. Patient appears much more alert today following her transfer to PCU yesterday. She is also afebrile and normotensive, however, her white blood cell count is elevated to 15 from 11 yesterday. We will have to watch this closely before consideration of placing a more permanent CBC. Awaiting formal transition to hemodialysis with placement of a tunneled hemodialysis catheter tentatively set for 10/22/2022. PLAN: Plan Plan for tunneled dialysis catheter early afternoon on Friday10/22/2022. PD catheter removal planned for later outpatient operation. In anticipation above, patient should be held n.p.o. past midnight 10/21/2022. Charges/Coding Visit Charges Inpatient E&M: 67603 Subs Hosp L2
[2022-10-20] MEDS: Cyanocobalamin 500 MCG Tablet PO (09:55)
[2022-10-20] MEDS: Aspirin E.C. 81 MG Tablet PO (09:55)
[2022-10-20] MEDS: Gabapentin 100 MG Capsule PO ×2 (09:55→16:41)
[2022-10-20] MEDS: Midodrine HCl 5 MG Tablet 10 MG PO ×3 (09:56→16:41)
[2022-10-20] MEDS: Pantoprazole Sodium 40 MG Tablet PO (09:57)
[2022-10-20] MEDS: buPROPion 100 MG Tablet PO ×2 (09:57→21:48)
[2022-10-20] MEDS: Magnesium Chloride 64 MG Delay Rel.Tablet 128 MG PO (09:57)
[2022-10-20] MEDS: Insulin Glargine-YFGN 100 UNIT/ML Pen 8 UNIT SC (10:00)
[2022-10-20 10:28] LABS: Bedside Glucose 110 mg/dL (74-106)
[2022-10-20] MEDS: Cefazolin 1 GM/50 ML BAG IV (11:17)
[2022-10-20 12:07] LABS: Bedside Glucose 123 mg/dL (74-106)
--- NOTE | 2022-10-20 12:55 | PCM.PN.HOSP ---
Reason for Visit Reason for Visit: Diagnoses Sepsis, unspecified organism (10/11/22) Hypokalemia (10/11/22) End stage renal disease (10/11/22) Dysphagia, unspecified (10/11/22) Dysphagia, oral phase (10/11/22) Severe sepsis with septic shock (10/11/22) Hyperglycemia, unspecified (10/11/22) Infection and inflammatory reaction due to peritoneal dialysis catheter, initial encounter (10/11/22) Dependence on renal dialysis (10/11/22) Objective Data Objective Data Vital Signs: Vital Signs Temp Pulse Resp BP Pulse Ox O2 Del Method O2 Flow Rate 97.4 F L 70 18 134/36 H 100 Room Air 2 10/20/22 09:45 10/20/22 09:45 10/20/22 09:45 10/20/22 09:45 10/20/22 09:45 10/20/22 09:45 10/20/22 10:47 FiO2 98 10/17/22 08:14 Oxygen Flow Rate (L/min) 2 Oxygen Delivery Method Room Air Weight: 223 lb 12.307 oz Body Mass Index (BMI) 43.7 Intake & Output: Intake and Output for Last 24 Hours 10/18/22 10/19/22 10/20/22 23:59 23:59 23:59 Intake Total 500 / 500 730 / 830 220 / 220 Output Total 3800 / 3800 Balance -3300 / -3300 730 / 830 220 / 220 Lab / Micro Data 10/20/22 05:40 10/20/22 05:40 Labs: Laboratory Results - last 24 hr 10/19/22 12:41: POC Glucose 137 H 10/19/22 16:24: POC Glucose 123 H 10/19/22 21:37: POC Glucose 124 H 10/20/22 05:40: WBC HUMAN RESOURCES PROJECT MANAGER, Corrected WBC 15.1 H, RBC 2.19 L, Hgb 7.2 L, Hct 23.3 L, MCV 106.4 H, MCH 32.9 H, MCHC 30.9 L, RDW Std Deviation 70.4 H, RDW Coeff of Alanna 18.7 H, Plt Count 284, MPV 10.0, Neut % (Auto) Not Reportable, Absolute Neuts (auto) 9.2 H, Absolute Lymphs (auto) 4.22, Total Counted 105, Neutrophils % (Manual) 61, Lymphocytes % (Manual) 28, Monocytes % (Manual) 5, Eosinophils % (Manual) 1, Metamyelocytes % 1, Myelocytes % 4 H, Nucleated RBCs/100 WBC 5, Diff Path Review May foll, Platelet Estimate ADEQUATE, RBC Morphology NORM C+C, Anisocytosis 2+, Macrocytosis 1+, Sodium 138, Potassium 4.0, Chloride 105, Carbon Dioxide 27.0, Anion Gap 6, BUN 24 H, Creatinine 4.72 H, Estim Creat Clear Calc 6.83, Est GFR (MDRD) Af Amer 11 L, Est GFR (MDRD) Non-Af 9 L, BUN/Creatinine Ratio 5.1 L, Glucose 99, Calcium 8.5 10/20/22 06:24: POC Glucose 99 10/20/22 10:06: POC Glucose 110 H 10/20/22 11:14: POC Glucose 123 H Micro: Microbiology 10/16/22 11:00 Fluid - Peritoneal Gram Stain - Final 10/16/22 11:00 Fluid - Peritoneal Body Fluid Culture - Final Culture exhibits no growth. 10/16/22 11:00 Fluid - Peritoneal Anaerobic Culture - Preliminary No growth in 48 hours. 10/11/22 13:30 Blood Culture (Wb) - Venous Blood Culture - Final No growth in 5 days. 10/11/22 12:45 Blood Culture (Wb) - Arm Right Blood Culture - Final No growth in 5 days. 10/12/22 12:50 Fluid - Paracentesis (Abd) Gram Stain - Final 10/12/22 12:50 Fluid - Paracentesis (Abd) Body Fluid Culture - Final Coag Negative Staph 10/12/22 12:50 Fluid - Paracentesis (Abd) Anaerobic Culture - Final No anaerobic bacteria isolated. Rhythm Strip Ectopy: - (Majority paced) Physical Exam Narrative Patient is sleepy and drowsy. Patient states she could not sleep last night and just fall asleep in the budget examiner. Seen and examined. General: Sleepy, drowsy. Awake on tactile stimulus. BMI 43.7 kg/m?, morbid obesity HEENT: Atraumatic, PERRLA, EOMI, Normocephalic Oral: Oral mucosa moist. No Gingival or Mucosal Lesions/ Ulcerations Neck: Supple, No JVD, Negative Carotid Bruits Lungs: Air entry diminished in bilateral lung bases. No crepitation/rhonchi Cardiovascular: Paced rhythm on monitor. Normal S1, Normal S2, systolic murmur over right second ICS. Abdomen: Peritoneal catheter present. Bowel Sounds Present, Soft, Non Tender, Non-Distended : On hemodialysis through left IJ dialysis catheter. No renal angle tenderness. No suprapubic tenderness. Extremities: No edema, Capillary Refill Less than 3 Seconds Skin: No rashes, No breakdown Musculoskeletal: No Tenderness to Palpation of Joints or Extremities Neurological: Cranial nerves II-XII grossly intact, DTR 2+/4 and Symmetrical, Neuro grossly intact Psych/Mental Status: Flat affect. Assessment & Plan Assessment/Plan (1) Septic shock: (2) Peritonitis associated with peritoneal dialysis: QUALIFIERS: Encounter type: initial encounter Qualified Code(s): T85.71XA - Infection and inflammatory reaction due to peritoneal dialysis catheter, initial encounter (3) Hypokalemia: (4) Hyperglycemia: (5) Dysphagia: QUALIFIERS: Dysphagia type: oral phase Qualified Code(s): R13.11 - Dysphagia, oral phase PLAN: Plan Septic shock secondary to peritoneal dialysis catheter induced coag negative staph bacterial peritonitis -Cultures currently showing coag negative staph -Patient has been off pressors for 48 hours now -Continue cefazolin and ID recommends 2 more weeks of IV antibiotics with cefazolin 2 g given with hemodialysis and tentative stop date of 10/25/2022 as long as repeat fluid culture is negative -Aerobic cultures are final and no growth on peritoneal fluid and anaerobic cultures are negative at 48 hours -No Levophed required for dialysis today and has been off since shortly after dialysis on 10/18/2022 and was transferred to PCU. -Continue midodrine 10 mg p.o. 3 times daily Repeat peritoneal culture also negative for more than 48 hours -ID, header operator and district court reporter is following. Dysphagia -Speech therapy following -EGD was unremarkable on 10/16/2022 -Patient is on a general diet-renal -Continue compensatory strategies per direction of speech therapy -Continue speech therapy Debility -PT/OT following -Will need SNF at discharge--> anticipate discharge towards the middle of next week End-stage renal disease. Patient was on peritoneal dialysis. PD catheter removal most likely after after discharge, as elective procedure. - -Nephrology is following -peritoneal fluid growing staph species with repeat cultures showing no growth to date and aerobic cultures are negative anaerobic cultures are negative at 48 hours -Continue antibiotics per ID -Plan is for tunneled dialysis catheter placement on Friday -Patient is getting much closer to dry weight Hypothyroidism -Continue Synthroid CAD/hypertension/hyperlipidemia -Continue aspirin -Continue statin -Hold Coreg due to hypotension GERD -Continue PPI Chronic anemia secondary to renal disease -hemoglobin stable DM-2 -Continue sliding scale -Glucoses between 1 24-1 37. On BMP glucose 99. Continue insulin Lantus 18 units daily. History of asthma -Currently stable -Continue home Singulair -stable on room air -Continue nebs as needed Glaucoma -Continue eyedrops Depression/anxiety -Continue home Wellbutrin DVT prophylaxis -Continue heparin SQ 3 times daily CODE STATUS -DNR CCA without intubation Disposition: -Anticipate discharge to skilled facility the middle of next week Charges/Coding Visit Charges Inpatient E&M: 39794 Subs Hosp L2
[2022-10-20] MEDS: Acetaminophen 325 MG Tablet 650 MG PO ×2 (14:45→21:48)
[2022-10-20] MEDS: 0.9% Saline Lock 10 ML Syringe IV ×2 (14:46→21:20)
[2022-10-20 17:21] LABS: Bedside Glucose 107 mg/dL (74-106)
[2022-10-20] MEDS: Ondansetron 4 MG/2 ML Vial IV (21:20)
[2022-10-20] MEDS: Latanoprost 0.005% 1 Bottle 1 DRP EACH EYE (21:47)
[2022-10-20] MEDS: Montelukast 10 MG Tablet PO (21:48)
[2022-10-20] MEDS: Atorvastatin Calcium 80 MG Tablet PO (21:48)
[2022-10-20 22:01] LABS: Bedside Glucose 119 mg/dL (74-106)
[2022-10-21] VITALS (15 sets, daily range): BP systolic 112–211; BP diastolic 27–91; PULSE 65–74; RESP 12–18; TEMP 36.1–36.7; O2SAT 93–100; BMI 43.5; BMI 42.4
[2022-10-21 05:47] LABS: Mean Corp Hgb Conc 30.4 g/dL (32-36); Mean Corpuscular Volume 108.5 fL (81-99); Mean Platelet Vol. 10.4 fl (6.2-12.0); POSITIVE COUNT YES; POSITIVE MORPHOLOGY YES; Platelet Count 323 K/mm3 (150-450); RBC Distribution Width CV 18.7 % (11.6-14.6); RBC Distribution Width SD 72.2 fl (35.1-43.9); Red Blood Count 2.12 M/mm3 (4.2-5.4)
[2022-10-21 05:54] LABS: Differential Indicated MANUAL DIFF
[2022-10-21] MEDS: Levothyroxine 137 MCG Tablet PO (06:19)
[2022-10-21] MEDS: Insulin Lispro 100 UNIT/ML INSULN.PEN SC (06:21)
[2022-10-21 06:39] LABS: Albumin, Serum 1.4 g/dL (3.2-5.0); BUN 31 mg/dL (7-18); BUN/Creat Ratio 5.2 RATIO (10-20); Calcium,Total 8.4 mg/dL (8.5-10.1); Chloride 104 mmol/L (98-107); Creatinine, Serum 5.94 mg/dL (0.55-1.02); EST Glomerular Filtration Rate 7 mL/min (>60); Est Glom Filt Rate - Afr Amer 9 mL/min (>60); Estimated Creatinine Clearance 5.43 ml/min; Glucose 149 mg/dL (74-106); Phosphorus 2.9 mg/dL (2.5-4.9); Potassium 4.7 mmol/L (3.5-5.1); Sodium Level 135 mmol/L (136-145)
[2022-10-21] MEDS: Ipratropium 0.5 MG/2.5 ML SOLUTION INHALATION ×2 (06:41→20:34)
[2022-10-21] MEDS: Budesonide Respules 0.5 MG/2 ML AMPUL.NEB. INHALATION ×2 (06:41→20:34)
[2022-10-21 06:42] LABS: Bedside Glucose 179 mg/dL (74-106)
[2022-10-21 06:56] LABS: Nucleated Red Bld Cells,Manual 4 % (0-5)
[2022-10-21 06:57] LABS: Lymphocyte 24 % (19-41); Monocyte 4 % (0-10); Neutrophil-Band 6 % (0-5); Neutrophil-Segmented 63 % (47-70); Total Cells Counted 104 (MANUAL DIFF)
[2022-10-21 06:58] LABS: White Blood Count 15.7 K/mm3 (4.4-11.0)
[2022-10-21 07:00] LABS: Absolute Neutrophil Count 10.8 X10^3/uL (2.0-7.7)
[2022-10-21 07:02] LABS: Absolute Lymphocyte Count 3.77 X10^3/uL (0.83-4.51); Anisocytosis 2+; Macrocytosis 2+; Platelet Estimate ADEQUATE (ADEQ)
--- NOTE | 2022-10-21 08:59 | PN.HOSP_ITS ---
Reason for Visit Reason for Visit: Diagnoses Sepsis, unspecified organism (10/11/22) Hypokalemia (10/11/22) End stage renal disease (10/11/22) Dysphagia, unspecified (10/11/22) Dysphagia, oral phase (10/11/22) Severe sepsis with septic shock (10/11/22) Hyperglycemia, unspecified (10/11/22) Infection and inflammatory reaction due to peritoneal dialysis catheter, initial encounter (10/11/22) Dependence on renal dialysis (10/11/22) Subjective Subjective Patient is an 82-year-old lady with history of end-stage renal disease on peritoneal dialysis presented with syncopal episode found to be hypotensive with elevated lactic acid and leukocytosis an assessment of Septic shock Secondary to peritoneal dialysis catheter associated peritonitis made Objective Data Objective Data Vital Signs: Vital Signs Temp Pulse Resp BP Pulse Ox O2 Del Method O2 Flow Rate 97 F L 70 18 112/30 L 95 Nasal Cannula 2 10/21/22 03:20 10/21/22 03:20 10/21/22 03:20 10/21/22 03:20 10/21/22 03:20 10/21/22 03:20 10/21/22 03:20 FiO2 98 10/17/22 08:14 Oxygen Flow Rate (L/min) 2 Oxygen Delivery Method Nasal Cannula Weight: 101.1 kg Body Mass Index (BMI) 43.5 Intake & Output: Intake and Output for Last 24 Hours 10/19/22 10/20/22 10/21/22 23:59 23:59 23:59 Intake Total 730 / 830 390 / 540 300 / 300 Balance 730 / 830 390 / 540 300 / 300 Lab / Micro Data 10/21/22 05:03 10/21/22 05:03 Labs: Laboratory Results - last 24 hr 10/20/22 10:06: POC Glucose 110 H 10/20/22 11:14: POC Glucose 123 H 10/20/22 16:39: POC Glucose 107 H 10/20/22 21:25: POC Glucose 119 H 10/21/22 05:03: WBC 15.7 H, RBC 2.12 L, Hgb 7.0 L, Hct 23.0 L, MCV 108.5 H, MCH 33.0 H, MCHC 30.4 L, RDW Std Deviation 72.2 H, RDW Coeff of Alanna 18.7 H, Plt Count 323, MPV 10.4, Neut % (Auto) Not Reportable, Absolute Neuts (auto) 10.8 H, Absolute Lymphs (auto) 3.77, Total Counted 104, Neutrophils % (Manual) 63, Band Neutrophils % 6 H, Lymphocytes % (Manual) 24, Monocytes % (Manual) 4, Nucleated RBCs/100 WBC 4, Diff Path Review May foll, Platelet Estimate ADEQUATE, Anisocytosis 2+, Macrocytosis 2+, Sodium 135 L, Potassium 4.7, Chloride 104, Carbon Dioxide 27.0, BUN 31 H, Creatinine 5.94 H, Estim Creat Clear Calc 5.43, Est GFR (MDRD) Af Amer 9 L, Est GFR (MDRD) Non-Af 7 L, BUN/Creatinine Ratio 5.2 L, Glucose 149 H, Calcium 8.4 L, Phosphorus 2.9, Albumin 1.4 L 10/21/22 06:20: POC Glucose 179 H Micro: Microbiology 10/16/22 11:00 Fluid - Peritoneal Gram Stain - Final 10/16/22 11:00 Fluid - Peritoneal Body Fluid Culture - Final Culture exhibits no growth. 10/16/22 11:00 Fluid - Peritoneal Anaerobic Culture - Preliminary No growth in 48 hours. 10/11/22 13:30 Blood Culture (Wb) - Venous Blood Culture - Final No growth in 5 days. 10/11/22 12:45 Blood Culture (Wb) - Arm Right Blood Culture - Final No growth in 5 days. 10/12/22 12:50 Fluid - Paracentesis (Abd) Gram Stain - Final 10/12/22 12:50 Fluid - Paracentesis (Abd) Body Fluid Culture - Final Coag Negative Staph 10/12/22 12:50 Fluid - Paracentesis (Abd) Anaerobic Culture - Final No anaerobic bacteria isolated. Rhythm Strip Ectopy: - (Majority paced) Physical Exam Narrative GENERAL: Cooperative HEENT: Dialysis catheter left neck EYES; Anicteric, Normal Conjunctiva NECK; supple, normal thyroid, RESPIRATORY: Diminished to auscultation with bilateral wheezes CARDIOVASCULAR: Regular S1 S2, GI: soft, normoactive bowel sounds, : No Renal angle tenderness; EXTREMITIES: 1+ bipedal edema MUSCULOSKELETAL: no muscle wasting NEURO: Awake; no lateralizing signs. SKIN: No Rash PSYCH; Flat affect Assessment & Plan Assessment/Plan (1) Septic shock: (2) Peritonitis associated with peritoneal dialysis: QUALIFIERS: Encounter type: initial encounter Qualified Code(s): T85.71XA - Infection and inflammatory reaction due to peritoneal dialysis catheter, initial encounter (3) Hypokalemia: (4) Hyperglycemia: (5) Dysphagia: QUALIFIERS: Dysphagia type: oral phase Qualified Code(s): R13.11 - Dysphagia, oral phase PLAN: Plan Patient is an 82-year-old lady with history of end-stage renal disease on peritoneal dialysis presented with syncopal episode found to be hypotensive with elevated lactic acid and leukocytosis an assessment of Septic shock Secondary to peritoneal dialysis catheter associated peritonitis made 1. Septic shock ? Secondary to peritoneal dialysis catheter associated peritonitis with coagulase negative staph. Patient met criteria for septic shock with presence of a suspected infection with SIRS criteria? as well as evidence of endorgan dysfunction with lactic acid level greater than 2. Patient did receive IV fluid in the emergency department without much response decision was subsequently made to start patient on Levophed after central line had been placed with plan for patient to be admitted to the intensive care unit. As part of her management did obtain blood as well as cultures from her peritoneal fluid. Started on broad-spectrum antibiotic therapy with Zosyn and vancomycin ? 10/12/2022; patient remains on pressors ? 10/13/2022 plan is to wean off ? 10/21/2022 patient cultures came back positive for coagulation negative staph. Started on cefazolin 2. Syncopal episode ? From hypotension from her suspected septic shock as well as possible hypovolemia from her peritoneal dialysis being resuscitated with IV fluid as discussed above 3. End-stage renal disease ? Patient is on peritoneal dialysis consult placed to Dr. Ovalle for dialysis orders. ? 10/12/2022 patient's family to run patient's dialysis ? 10/21/2022 plan is to transition from peritoneal dialysis to hemodialysis with tunneled dialysis catheter placement scheduled for 10/22/2022 4. Diabetes mellitus type II -patient's oral hypoglycemics held. Placed on long acting insulin, Accu-Cheks a.c. and at bedtime and covered with sliding scale insulin 5. Anemia - Secondary to chronic disorder monitoring H&H and transfuse if patient becomes symptomatic or hemoglobin falls below 7 6. Dyslipidemia -Patient is on statin therapy, continued at home dose 7. Essential hypertension ? Patient antihypertensives held given her presentation low blood pressure 8. Hypothyroidism - Patient is on levothyroxine home dose continued 9. GERD ? On PPI 10. Hypokalemia ? Corrected per protocol repeat labs ordered in a.m. for monitoring 11. 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 Nonobstructive coronary artery disease ? Currently stable on recommended medications 13. Depression with anxiety ? Patient is on bupropion 14. Class II obesity with BMI of 39.1 - complicating care, Weight loss advised 15. DVT prophylaxis ? SC heparin 16. Physical deconditioning - Requested for PT OT eval and mental health social worker to assist with discharge planning Time time spent in the patient's overall evaluation,decision-making process, review of diagnostic data, adjustment of management, discussion with other providers, nursing nursing and ancillary staff involved in patient's care documentation 50 minutes Charges/Coding Visit Charges Inpatient E&M: 61060 [facility] Hosp L3
--- NOTE | 2022-10-21 09:46 | PCM.PN.SRG ---
Subjective Subjective Patient seen and examined during AM rounds. She is found resting in bed. She states that following breakfast yesterday she began feeling ill with some nausea and had some shaking. She reports that she feels better today but once again is more tired. She denies any abdominal discomfort. Objective Data Objective Data Vital Signs: Vital Signs Temp Pulse Resp BP Pulse Ox O2 Del Method O2 Flow Rate 97 F L 71 16 112/30 L 96 Nasal Cannula 2 10/21/22 03:20 10/21/22 06:41 10/21/22 06:41 10/21/22 03:20 10/21/22 06:41 10/21/22 06:41 10/21/22 06:41 FiO2 98 10/17/22 08:14 Oxygen Flow Rate (L/min) 2 Oxygen Delivery Method Nasal Cannula Weight: 222 lb 14.197 oz Body Mass Index (BMI) 43.5 Intake & Output: Intake and Output for Last 24 Hours 10/19/22 10/20/22 10/21/22 23:59 23:59 23:59 Intake Total 730 / 830 390 / 540 300 / 300 Balance 730 / 830 390 / 540 300 / 300 Lab / Micro Data 10/21/22 05:03 10/21/22 05:03 Labs: Laboratory Results - last 24 hr 10/20/22 10:06: POC Glucose 110 H 10/20/22 11:14: POC Glucose 123 H 10/20/22 16:39: POC Glucose 107 H 10/20/22 21:25: POC Glucose 119 H 10/21/22 05:03: WBC 15.7 H, RBC 2.12 L, Hgb 7.0 L, Hct 23.0 L, MCV 108.5 H, MCH 33.0 H, MCHC 30.4 L, RDW Std Deviation 72.2 H, RDW Coeff of Alanna 18.7 H, Plt Count 323, MPV 10.4, Neut % (Auto) Not Reportable, Absolute Neuts (auto) 10.8 H, Absolute Lymphs (auto) 3.77, Total Counted 104, Neutrophils % (Manual) 63, Band Neutrophils % 6 H, Lymphocytes % (Manual) 24, Monocytes % (Manual) 4, Nucleated RBCs/100 WBC 4, Diff Path Review May , Platelet Estimate ADEQUATE, Anisocytosis 2+, Macrocytosis 2+, Sodium 135 L, Potassium 4.7, Chloride 104, Carbon Dioxide 27.0, BUN 31 H, Creatinine 5.94 H, Estim Creat Clear Calc 5.43, Est GFR (MDRD) Af Amer 9 L, Est GFR (MDRD) Non-Af 7 L, BUN/Creatinine Ratio 5.2 L, Glucose 149 H, Calcium 8.4 L, Phosphorus 2.9, Albumin 1.4 L 10/21/22 06:20: POC Glucose 179 H Micro: Microbiology 10/16/22 11:00 Fluid - Peritoneal Gram Stain - Final 10/16/22 11:00 Fluid - Peritoneal Body Fluid Culture - Final Culture exhibits no growth. 10/16/22 11:00 Fluid - Peritoneal Anaerobic Culture - Preliminary No growth in 48 hours. 10/11/22 13:30 Blood Culture (Wb) - Venous Blood Culture - Final No growth in 5 days. 10/11/22 12:45 Blood Culture (Wb) - Arm Right Blood Culture - Final No growth in 5 days. 10/12/22 12:50 Fluid - Paracentesis (Abd) Gram Stain - Final 10/12/22 12:50 Fluid - Paracentesis (Abd) Body Fluid Culture - Final Coag Negative Staph 10/12/22 12:50 Fluid - Paracentesis (Abd) Anaerobic Culture - Final No anaerobic bacteria isolated. Rhythm Strip Ectopy: - (Majority paced) Physical Exam Const oriented x3 and no apparent distress Neck Neck Narrative: Insertion site for right CVC unremarkable. Left temporary hemodialysis catheter appears appropriate. Resp normal respiratory effort GI GI Narrative: Peritoneal dialysis catheter site unremarkable without erythema or surrounding drainage. Patient's abdomen is soft and nontender to palpation x4 quadrants. Extremity Extremity Narrative: Anasarca present Assessment & Plan Assessment/Plan (1) Peritonitis associated with peritoneal dialysis: QUALIFIERS: Encounter type: initial encounter Qualified Code(s): T85.71XA - Infection and inflammatory reaction due to peritoneal dialysis catheter, initial encounter PLAN: Patient no longer demonstrates signs of peritonitis and peritoneal fluid cultures are negative. Patient once again appears more fatigued today and states that she began feeling poorly after breakfast yesterday. Once again, she is afebrile and normotensive, however, her white blood cell count is remains elevated at 15. I recommend repeating blood cultures and conferencing with infectious disease ahead of planned tunneled hemodialysis catheter insertion tomorrow to be sure that there is no current infection that may compromise patient's tunneled line tomorrow. Please notify surgery immediately if any source is found for patient's leukocytosis. PLAN: Plan Plan for tunneled dialysis catheter early afternoon on Friday10/22/2022. PD catheter removal planned for later outpatient operation. In anticipation above, patient should be held n.p.o. past midnight 10/21/2022. Charges/Coding Visit Charges Inpatient E&M: 69847 Subs Hosp L2
[2022-10-21] MEDS: 0.9% Normal Saline 1,000 ML IV.SOLN. 1000 ML OPERA.SITE (10:46)
[2022-10-21] MEDS: PureFlow B 2K Dialysis Soln 1 BAG 6 BAG PF (10:46)
[2022-10-21] MEDS: 0.9% Saline Lock 10 ML Syringe IV ×2 (11:05→14:47)
[2022-10-21] MEDS: Epoetin Alfa epbx 10,000 UNITS/ML 20000 UNIT SC (11:06)
--- NOTE | 2022-10-21 11:56 | NUR.TO.PHY ---
This RN spoke with the hospitalist regarding removal of temp dialysis catheter. patient has pending blood cultures & elevated WBC. Currently tunneled dialysis catheter scheduled for tomorrow afternoon. Hospitalist recommendation is to leave temp catheter in place until culture results received & remove temp line tomorrow morning if proceeding to surgery
--- NOTE | 2022-10-21 13:19 | CASEMGMT ---
VITALY spoke with Bebeto Manuel and they arranged a chair time for patient at [facility]. M,W,F at 13:45. VITALY called patient's daughter Lydia and let her know that [facility] is able take patient and they can transport patient to dialysis. [facility]Y said [facility] did not have any beds, but VITALY can check back to see if this has changed. Lydia said she will talk with the family. Carmen Farias PRINTING TABLE WORKER [employer]PHANE
[2022-10-21 13:55] LABS: Pathologist Review Reviewed
[2022-10-21 14:13] LABS: Bedside Glucose 147 mg/dL (74-106)
[2022-10-21] MEDS: Aspirin E.C. 81 MG Tablet PO (14:32)
[2022-10-21] MEDS: Ergocalciferol 1.25 MG (50, 000 UNIT) Capsule PO (14:33)
[2022-10-21] MEDS: Cyanocobalamin 500 MCG Tablet PO (14:33)
[2022-10-21] MEDS: Pantoprazole Sodium 40 MG Tablet PO (14:33)
[2022-10-21] MEDS: Magnesium Chloride 64 MG Delay Rel.Tablet 128 MG PO (14:33)
[2022-10-21] MEDS: Midodrine HCl 5 MG Tablet 10 MG PO ×2 (14:33→18:08)
[2022-10-21] MEDS: buPROPion 100 MG Tablet PO ×2 (14:33→21:16)
[2022-10-21] MEDS: Insulin Glargine-YFGN 100 UNIT/ML Pen 8 UNIT SC (14:34)
[2022-10-21] MEDS: Gabapentin 100 MG Capsule PO ×2 (14:42→18:08)
[2022-10-21] MEDS: Heparin Injection (Vial) 5,000 UNIT/ML VIAL 5000 UNIT SC ×2 (14:43→21:15)
[2022-10-21] MEDS: Cefazolin 1 GM/50 ML BAG IV (14:45)
--- NOTE | 2022-10-21 14:54 | NURSING ---
AM medications late d/t pt getting dialysis
--- NOTE | 2022-10-21 16:15 | PCM.PN.ID ---
Physical Exam Narrative Feeling better, no fever, no abd pain Const alert and no apparent distress General Appearance: cooperative Resp normal air movement and clear to auscultation bilaterally Cardio regular rate and regular rhythm GI soft to palpation, non-tender and non-distended Skin no rashes or lesions noted ID ID: Route of nutrition/ use of supplements: [] Nutritional Intake: [] IV Site: [] Mittal Catheter: [] Assessment & Plan Assessment/Plan (1) Peritonitis associated with peritoneal dialysis: QUALIFIERS: Encounter type: initial encounter Qualified Code(s): T85.71XA - Infection and inflammatory reaction due to peritoneal dialysis catheter, initial encounter (2) Septic shock: PLAN: due to peritonitis. Fluid with MS-CoNS, improving. Cont cefazolin. Last dose of abx will be 10/23 here (would give cefazolin 2gm after dialysis that day prior to discharge). Will follow as needed
--- NOTE | 2022-10-21 16:25 | PN.HOSP_ITS ---
Reason for Visit Reason for Visit: Diagnoses Sepsis, unspecified organism (10/11/22) Hypokalemia (10/11/22) End stage renal disease (10/11/22) Dysphagia, unspecified (10/11/22) Dysphagia, oral phase (10/11/22) Severe sepsis with septic shock (10/11/22) Hyperglycemia, unspecified (10/11/22) Infection and inflammatory reaction due to peritoneal dialysis catheter, initial encounter (10/11/22) Dependence on renal dialysis (10/11/22) Objective Data Objective Data Vital Signs: Vital Signs Temp Pulse Resp BP Pulse Ox O2 Del Method O2 Flow Rate 97.6 F L 70 13 149/51 H 96 Nasal Cannula 2 10/21/22 13:38 10/21/22 13:38 10/21/22 13:38 10/21/22 13:38 10/21/22 13:38 10/21/22 14:35 10/21/22 14:35 FiO2 98 10/17/22 08:14 Oxygen Flow Rate (L/min) 2 Oxygen Delivery Method Nasal Cannula Weight: 216 lb 0.848 oz Body Mass Index (BMI) 42.4 Intake & Output: Intake and Output for Last 24 Hours 10/19/22 10/20/22 10/21/22 23:59 23:59 23:59 Intake Total 730 / 830 390 / 540 300 / 300 Output Total 3100 / 3100 Balance 730 / 830 390 / 540 -2800 / -2800 Lab / Micro Data 10/21/22 05:03 10/21/22 05:03 Labs: Laboratory Results - last 24 hr 10/18/22 03:15: Diff Path Review Reviewed 10/20/22 16:39: POC Glucose 107 H 10/20/22 21:25: POC Glucose 119 H 10/21/22 05:03: WBC 15.7 H, RBC 2.12 L, Hgb 7.0 L, Hct 23.0 L, MCV 108.5 H, MCH 33.0 H, MCHC 30.4 L, RDW Std Deviation 72.2 H, RDW Coeff of Alanna 18.7 H, Plt Count 323, MPV 10.4, Neut % (Auto) Not Reportable, Absolute Neuts (auto) 10.8 H, Absolute Lymphs (auto) 3.77, Total Counted 104, Neutrophils % (Manual) 63, Band Neutrophils % 6 H, Lymphocytes % (Manual) 24, Monocytes % (Manual) 4, Nucleated RBCs/100 WBC 4, Diff Path Review July, Platelet Estimate ADEQUATE, Anisocytosis 2+, Macrocytosis 2+, Sodium 135 L, Potassium 4.7, Chloride 104, Carbon Dioxide 27.0, BUN 31 H, Creatinine 5.94 H, Estim Creat Clear Calc 5.43, Est GFR (MDRD) Af Amer 9 L, Est GFR (MDRD) Non-Af 7 L, BUN/Creatinine Ratio 5.2 L, Glucose 149 H, Calcium 8.4 L, Phosphorus 2.9, Albumin 1.4 L 10/21/22 06:20: POC Glucose 179 H 10/21/22 10:50: POC Glucose 147 H Micro: Microbiology 10/16/22 11:00 Fluid - Peritoneal Gram Stain - Final 10/16/22 11:00 Fluid - Peritoneal Body Fluid Culture - Final Culture exhibits no growth. 10/16/22 11:00 Fluid - Peritoneal Anaerobic Culture - Final No anaerobic bacteria isolated. 10/11/22 13:30 Blood Culture (Wb) - Venous Blood Culture - Final No growth in 5 days. 10/11/22 12:45 Blood Culture (Wb) - Arm Right Blood Culture - Final No growth in 5 days. 10/12/22 12:50 Fluid - Paracentesis (Abd) Gram Stain - Final 10/12/22 12:50 Fluid - Paracentesis (Abd) Body Fluid Culture - Final Coag Negative Staph 10/12/22 12:50 Fluid - Paracentesis (Abd) Anaerobic Culture - Final No anaerobic bacteria isolated. Rhythm Strip Ectopy: - (Majority paced) Physical Exam Narrative Seen and examined. Patient more awake and alert today. Denies fever or chills. Getting hemodialysis today. General: Awake alert oriented x3 BMI 43.7 kg/m?, morbid obesity HEENT: Atraumatic, PERRLA, EOMI, Normocephalic Oral: Oral mucosa moist. No Gingival or Mucosal Lesions/ Ulcerations Neck: Supple, No JVD, Negative Carotid Bruits Lungs: Air entry diminished in bilateral lung bases. No crepitation/rhonchi Cardiovascular: Paced rhythm on monitor. Normal S1, Normal S2, systolic murmur over right second ICS. Abdomen: Peritoneal catheter present. Bowel Sounds Present, Soft, Non Tender, Non-Distended : On hemodialysis through left IJ dialysis catheter. No renal angle tenderness. No suprapubic tenderness. Extremities: No edema, Capillary Refill Less than 3 Seconds Skin: No rashes, No breakdown Musculoskeletal: No Tenderness to Palpation of Joints or Extremities Neurological: Cranial nerves II-XII grossly intact, DTR 2+/4 and Symmetrical, Neuro grossly intact Psych/Mental Status: Flat affect. Assessment & Plan Assessment/Plan (1) Septic shock: (2) Peritonitis associated with peritoneal dialysis: QUALIFIERS: Encounter type: initial encounter Qualified Code(s): T85.71XA - Infection and inflammatory reaction due to peritoneal dialysis catheter, initial encounter (3) Hypokalemia: (4) Hyperglycemia: (5) Dysphagia: QUALIFIERS: Dysphagia type: oral phase Qualified Code(s): R13.11 - Dysphagia, oral phase PLAN: Plan Patient is an 82-year-old lady with history of end-stage renal disease on peritoneal dialysis presented with syncopal episode found to be hypotensive with elevated lactic acid and leukocytosis an assessment of Septic shock Secondary to peritoneal dialysis catheter associated peritonitis made 1. Septic shock ? Secondary to peritoneal dialysis catheter associated peritonitis with coagulase negative staph. Patient met criteria for septic shock with presence of a suspected infection with SIRS criteria? as well as evidence of endorgan dysfunction with lactic acid level greater than 2. Patient did receive IV fluid in the emergency department without much response decision was subsequently made to start patient on Levophed after central line had been placed with plan for patient to be admitted to the intensive care unit. As part of her management did obtain blood as well as cultures from her peritoneal fluid. Started on broad-spectrum antibiotic therapy with Zosyn and vancomycin ? 10/12/2022; patient remains on pressors ? 10/13/2022 plan is to wean off ? 10/21/2022 patient cultures came back positive for coagulation negative staph. Started on cefazolin 10/22:Discussed with the ID. Increased leukocytosis with bands 6% but no obvious signs of worsening infection like fever, hypotension. No abdominal tenderness and I think peritonitis is improved. Repeat blood cultures drawn today. ID thinks she will be good for tenolysis catheter tomorrow AM. Discussed with the surgeon. 2. Syncopal episode ? From hypotension from her suspected septic shock as well as possible hypovolemia from her peritoneal dialysis being resuscitated with IV fluid as discussed above 3. End-stage renal disease ? Patient is on peritoneal dialysis consult placed to Dr. Ovalle for dialysis orders. ? 10/12/2022 patient's family to run patient's dialysis ? 10/21/2022 plan is to transition from peritoneal dialysis to hemodialysis with tunneled dialysis catheter placement scheduled for 10/22/202210/22: Patient getting hemodialysis through left IJ catheter 4. Diabetes mellitus type II -patient's oral hypoglycemics held. Placed on long acting insulin, Accu-Cheks a.c. and at bedtime and covered with sliding scale insulin 5. Anemia - Secondary to chronic disorder monitoring H&H and transfuse if patient becomes symptomatic or hemoglobin falls below 7 6. Dyslipidemia -Patient is on statin therapy, continued at home dose 7. Essential hypertension ? Patient antihypertensives held given her presentation low blood pressure 8. Hypothyroidism - Patient is on levothyroxine home dose continued 9. GERD ? On PPI 10. Hypokalemia ? Corrected per protocol repeat labs ordered in a.m. for monitoring 11. 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 Nonobstructive coronary artery disease ? Currently stable on recommended medications 13. Depression with anxiety ? Patient is on bupropion 14. Class II obesity with BMI of 39.1 - complicating care, Weight loss advised 15. DVT prophylaxis ? SC heparin 16. Physical deconditioning - Requested for PT OT eval and social studies teacher to assist with discharge planning Time time spent in the patient's overall evaluation,decision-making process, review of diagnostic data, adjustment of management, discussion with other providers, nursing nursing and ancillary staff involved in patient's care documentation 50 minutes Charges/Coding Visit Charges Inpatient E&M: 64674 Subs Hosp L2
[2022-10-21 17:51] LABS: Bedside Glucose 126 mg/dL (74-106)
[2022-10-21] MEDS: Atorvastatin Calcium 80 MG Tablet PO (21:15)
[2022-10-21] MEDS: Acetaminophen 325 MG Tablet 650 MG PO (21:15)
[2022-10-21] MEDS: Latanoprost 0.005% 1 Bottle 1 DRP EACH EYE (21:16)
[2022-10-21] MEDS: Montelukast 10 MG Tablet PO (21:16)
[2022-10-21 21:50] LABS: Bedside Glucose 146 mg/dL (74-106)
--- NOTE | 2022-10-21 22:57 | PN.RENAL_ITS ---
Subjective Subjective seen on HD Objective Data Objective Data Vital Signs: Vital Signs Temp Pulse Resp BP Pulse Ox O2 Del Method O2 Flow Rate 98.0 F 70 16 136/27 H 100 Nasal Cannula 2 10/21/22 21:28 10/21/22 21:28 10/21/22 21:28 10/21/22 21:28 10/21/22 21:28 10/21/22 21:28 10/21/22 21:28 FiO2 98 10/17/22 08:14 Oxygen Flow Rate (L/min) 2 Oxygen Delivery Method Nasal Cannula Weight: 98 kg Body Mass Index (BMI) 42.4 Intake & Output: Intake and Output for Last 24 Hours 10/19/22 10/20/22 10/21/22 23:59 23:59 23:59 Intake Total 730 / 830 390 / 540 770 / 770 Output Total 6200 / 6200 Balance 730 / 830 390 / 540 -5430 / -5430 Lab / Micro Data 10/21/22 05:03 10/21/22 05:03 Labs: Laboratory Results - last 24 hr 10/18/22 03:15: Diff Path Review Reviewed 10/21/22 05:03: WBC 15.7 H, RBC 2.12 L, Hgb 7.0 L, Hct 23.0 L, MCV 108.5 H, MCH 33.0 H, MCHC 30.4 L, RDW Std Deviation 72.2 H, RDW Coeff of Alanna 18.7 H, Plt Count 323, MPV 10.4, Neut % (Auto) Not Reportable, Absolute Neuts (auto) 10.8 H, Absolute Lymphs (auto) 3.77, Total Counted 104, Neutrophils % (Manual) 63, Band Neutrophils % 6 H, Lymphocytes % (Manual) 24, Monocytes % (Manual) 4, Nucleated RBCs/100 WBC 4, Diff Path Review May , Platelet Estimate ADEQUATE, Anisoc ytosis 2+, Macrocytosis 2+, Sodium 135 L, Potassium 4.7, Chloride 104, Carbon Dioxide 27.0, BUN 31 H, Creatinine 5.94 H, Estim Creat Clear Calc 5.43, Est GFR (MDRD) Af Amer 9 L, Est GFR (MDRD) Non-Af 7 L, BUN/Creatinine Ratio 5.2 L, Glucose 149 H, Calcium 8.4 L, Phosphorus 2.9, Albumin 1.4 L 10/21/22 06:20: POC Glucose 179 H 10/21/22 10:50: POC Glucose 147 H 10/21/22 17:11: POC Glucose 126 H 10/21/22 21:20: POC Glucose 146 H Micro: Microbiology 10/16/22 11:00 Fluid - Peritoneal Gram Stain - Final 10/16/22 11:00 Fluid - Peritoneal Body Fluid Culture - Final Culture exhibits no growth. 10/16/22 11:00 Fluid - Peritoneal Anaerobic Culture - Final No anaerobic bacteria isolated. 10/11/22 13:30 Blood Culture (Wb) - Venous Blood Culture - Final No growth in 5 days. 10/11/22 12:45 Blood Culture (Wb) - Arm Right Blood Culture - Final No growth in 5 days. 10/12/22 12:50 Fluid - Paracentesis (Abd) Gram Stain - Final 10/12/22 12:50 Fluid - Paracentesis (Abd) Body Fluid Culture - Final Coag Negative Staph 10/12/22 12:50 Fluid - Paracentesis (Abd) Anaerobic Culture - Final No anaerobic bacteria isolated. Rhythm Strip Ectopy: - (Majority paced) Physical Exam Narrative General: Alert and oriented x3, NAD. Cardiovascular: Normal S1, S2. No rubs, murmurs, or gallops. Respiratory: Lungs are diminished breath sounds posterior bases Abdomen: Normal bowel sounds, soft. Dressing clean dry and intact to PD catheter Extremities: pitting edema b/l legs, thighs, arms. edema to lower abdomen Nontunneled temporary left IJ dialysis catheter dressing clean, dry and intact Assessment & Plan Assessment/Plan (1) ESRD on peritoneal dialysis: (2) Septic shock: (3) Peritonitis associated with peritoneal dialysis: QUALIFIERS: Encounter type: initial encounter Qualified Code(s): T85.71XA - Infection and inflammatory reaction due to peritoneal dialysis catheter, initial encounter PLAN: Plan Impression/Plan: The patient is a 82-year-old woman with past history of ESRD, type 2 diabetes mellitus, hypertension, CAD, heart failure with preserved ejection fraction, PAD, hypothyroidism, and hyperlipidemia. The patient presented to the hospital on 10/11/2022 with syncope and was diagnosed with circulatory shock requiring IV vasopressor and volume expansion. - ESRD had been on PD; now on HD, volume status better overall needs tunneled dialysis line, likely tomorrow PD catheter removal eventually edema better dw family. case management to see for placement options.
[2022-10-22] VITALS (11 sets, daily range): BP systolic 102–149; BP diastolic 25–68; PULSE 66–80; RESP 14–20; TEMP 36.3–36.8; O2SAT 2–99; BMI 44.1; BMI 42.2
[2022-10-22 06:05] LABS: Hematocrit 23.1 % (37-47); Hemoglobin 7.1 g/dL (12.0-15.0); Mean Corp Hgb Conc 30.7 g/dL (32-36); Mean Corpuscular Hgb 33.3 pg (27.0-32.0); Mean Corpuscular Volume 108.5 fL (81-99); Mean Platelet Vol. 10.5 fl (6.2-12.0); POSITIVE COUNT YES; POSITIVE MORPHOLOGY YES; Platelet Count 314 K/mm3 (150-450); RBC Distribution Width CV 19.3 % (11.6-14.6); RBC Distribution Width SD 71.5 fl (35.1-43.9); Red Blood Count 2.13 M/mm3 (4.2-5.4)
[2022-10-22 06:06] LABS: Differential Indicated MANUAL DIFF
[2022-10-22 06:38] LABS: Anion Gap 3 (5-15); BUN 28 mg/dL (7-18); BUN/Creat Ratio 5.6 RATIO (10-20); Calcium,Total 8.3 mg/dL (8.5-10.1); Chloride 104 mmol/L (98-107); EST Glomerular Filtration Rate 9 mL/min (>60); Est Glom Filt Rate - Afr Amer 11 mL/min (>60); Estimated Creatinine Clearance 6.45 ml/min; Glucose 116 mg/dL (74-106); Potassium 4.5 mmol/L (3.5-5.1); Sodium Level 135 mmol/L (136-145)
[2022-10-22 06:41] LABS: Anisocytosis 2+; Macrocytosis 2+; Platelet Estimate ADEQUATE (ADEQ); Red Cell Morphology NORM C+C NORMAL (NORM C&C)
[2022-10-22 06:47] LABS: Lymphocyte 16 % (19-41); Metamyelocyte 1 % (0-1); Monocyte 7 % (0-10); Myelocyte 2 % (0-0); Neutrophil-Segmented 72 % (47-70); Promyelocyte 2 % (0-0); Total Cells Counted 102 (MANUAL DIFF)
[2022-10-22 06:48] LABS: Nucleated Red Bld Cells,Manual 2 % (0-5)
[2022-10-22 06:50] LABS: Absolute Lymphocyte Count 2.56 X10^3/uL (0.83-4.51); Absolute Neutrophil Count 11.5 X10^3/uL (2.0-7.7)
[2022-10-22] MEDS: Budesonide Respules 0.5 MG/2 ML AMPUL.NEB. INHALATION ×2 (06:55→20:27)
[2022-10-22] MEDS: Ipratropium 0.5 MG/2.5 ML SOLUTION INHALATION ×3 (06:55→20:27)
[2022-10-22 07:04] LABS: Bedside Glucose 109 mg/dL (74-106)
[2022-10-22] MEDS: Levothyroxine 137 MCG Tablet PO (07:24)
[2022-10-22] MEDS: 0.9% Saline Lock 10 ML Syringe IV ×3 (07:25→21:59)
--- NOTE | 2022-10-22 07:29 | PCM.PN.SRG ---
Subjective Subjective Patient states she is tired, had dialysis yesterday is also to have dialysis again today. Objective Data Objective Data Vital Signs: Vital Signs Temp Pulse Resp BP Pulse Ox O2 Del Method O2 Flow Rate 98.3 F 69 14 126/25 H 99 Nasal Cannula 2 10/22/22 06:27 10/22/22 06:27 10/22/22 06:27 10/22/22 06:27 10/22/22 06:27 10/22/22 06:27 10/22/22 06:27 FiO2 98 10/17/22 08:14 Oxygen Flow Rate (L/min) 2 Oxygen Delivery Method Nasal Cannula Weight: 216 lb 0.848 oz Body Mass Index (BMI) 42.2 Intake & Output: Intake and Output for Last 24 Hours 10/20/22 10/21/22 10/22/22 23:59 23:59 23:59 Intake Total 390 / 540 770 / 890 120 / 120 Output Total 6200 / 6200 0 / 0 Balance 390 / 540 -5430 / -5310 120 / 120 Lab / Micro Data 10/22/22 05:18 10/22/22 05:18 Labs: Laboratory Results - last 24 hr 10/18/22 03:15: Diff Path Review Reviewed 10/21/22 10:50: POC Glucose 147 H 10/21/22 17:11: POC Glucose 126 H 10/21/22 21:20: POC Glucose 146 H 10/22/22 05:18: WBC 16.0 H, RBC 2.13 L, Hgb 7.1 L, Hct 23.1 L, MCV 108.5 H, MCH 33.3 H, MCHC 30.7 L, RDW Std Deviation 71.5 H, RDW Coeff of Alanna 19.3 H, Plt Count 314, MPV 10.5, Neut % (Auto) Not Reportable, Absolute Neuts (auto) 11.5 H, Absolute Lymphs (auto) 2.56, Total Counted 102, Neutrophils % (Manual) 72 H, Lymphocytes % (Manual) 16 L, Monocytes % (Manual) 7, Metamyelocytes % 1, Myelocytes % 2 H, Promyelocytes % 2 H, Nucleated RBCs/100 WBC 2, Diff Path Review May , Platelet Estimate ADEQUATE, RBC Morphology NORM C+C, Anisocytosis 2+, Macrocytosis 2+, Sodium 135 L, Potassium 4.5, Chloride 104, Carbon Dioxide 28.0, Anion Gap 3 L, BUN 28 H, Creatinine 5.00 H, Estim Creat Clear Calc 6.45, Est GFR (MDRD) Af Amer 11 L, Est GFR (MDRD) Non-Af 9 L, BUN/Creatinine Ratio 5.6 L, Glucose 116 H, Calcium 8.3 L 10/22/22 06:20: POC Glucose 109 H Micro: Microbiology 10/16/22 11:00 Fluid - Peritoneal Gram Stain - Final 10/16/22 11:00 Fluid - Peritoneal Body Fluid Culture - Final Culture exhibits no growth. 10/16/22 11:00 Fluid - Peritoneal Anaerobic Culture - Final No anaerobic bacteria isolated. 10/11/22 13:30 Blood Culture (Wb) - Venous Blood Culture - Final No growth in 5 days. 10/11/22 12:45 Blood Culture (Wb) - Arm Right Blood Culture - Final No growth in 5 days. 10/12/22 12:50 Fluid - Paracentesis (Abd) Gram Stain - Final 10/12/22 12:50 Fluid - Paracentesis (Abd) Body Fluid Culture - Final Coag Negative Staph 10/12/22 12:50 Fluid - Paracentesis (Abd) Anaerobic Culture - Final No anaerobic bacteria isolated. Rhythm Strip Ectopy: - (Majority paced) Physical Exam Narrative Left temporary IJ dialysis catheter in place Const oriented x3 Resp normal respiratory effort Cardio regular rate GI soft to palpation and non-tender GI Narrative: Peritoneal dialysis catheter in place, no erythema Assessment & Plan Assessment/Plan (1) Peritonitis associated with peritoneal dialysis: QUALIFIERS: Encounter type: initial encounter Qualified Code(s): T85.71XA - Infection and inflammatory reaction due to peritoneal dialysis catheter, initial encounter PLAN: Patient no longer demonstrates signs of peritonitis and peritoneal fluid cultures are negative. (2) ESRD (end stage renal disease) on dialysis: PLAN: Via left IJ temporary dialysis catheter in the hospital PLAN: Plan We will hold off on tunneled dialysis catheter today due to patient's white blood count of 16. Infectious disease still following. Addendum: We will plan for removal of peritoneal dialysis catheter tomorrow possible diagnostic laparoscopy. Patient is aware she may have a more adhesions in that area as she does have a mesh for her umbilical hernia that is right near the catheter site. Anyi Beverly M.D. Pager: [phone] [facility] [address] [place] [address], [facility], [address] [place] [address] Office: [phone] Charges/Coding Visit Charges Inpatient E&M: 59170 Subs Hosp L3
[2022-10-22] MEDS: Gabapentin 100 MG Capsule PO ×2 (08:28→16:41)
[2022-10-22] MEDS: Pantoprazole Sodium 40 MG Tablet PO (08:29)
[2022-10-22] MEDS: Midodrine HCl 5 MG Tablet 10 MG PO (08:29)
[2022-10-22] MEDS: Aspirin E.C. 81 MG Tablet PO (08:29)
[2022-10-22] MEDS: Cyanocobalamin 500 MCG Tablet PO (08:29)
[2022-10-22] MEDS: buPROPion 100 MG Tablet PO ×2 (08:29→21:59)
[2022-10-22] MEDS: Magnesium Chloride 64 MG Delay Rel.Tablet 128 MG PO (08:29)
--- NOTE | 2022-10-22 08:40 | PN.HOSP_ITS ---
Reason for Visit Reason for Visit: Diagnoses Sepsis, unspecified organism (10/11/22) Hypokalemia (10/11/22) End stage renal disease (10/11/22) Dysphagia, unspecified (10/11/22) Dysphagia, oral phase (10/11/22) Severe sepsis with septic shock (10/11/22) Hyperglycemia, unspecified (10/11/22) Infection and inflammatory reaction due to peritoneal dialysis catheter, initial encounter (10/11/22) Dependence on renal dialysis (10/11/22) Objective Data Objective Data Vital Signs: Vital Signs Temp Pulse Resp BP Pulse Ox O2 Del Method O2 Flow Rate 98.3 F 78 16 108/28 L 98 Nasal Cannula 2 10/22/22 06:27 10/22/22 06:55 10/22/22 06:55 10/22/22 08:27 10/22/22 06:55 10/22/22 07:40 10/22/22 07:40 FiO2 98 10/17/22 08:14 Oxygen Flow Rate (L/min) 2 Oxygen Delivery Method Nasal Cannula Weight: 216 lb 0.848 oz Body Mass Index (BMI) 42.2 Intake & Output: Intake and Output for Last 24 Hours 10/20/22 10/21/22 10/22/22 23:59 23:59 23:59 Intake Total 390 / 540 770 / 890 120 / 120 Output Total 6200 / 6200 0 / 0 Balance 390 / 540 -5430 / -5310 120 / 120 Lab / Micro Data 10/22/22 05:18 10/22/22 05:18 Labs: Laboratory Results - last 24 hr 10/18/22 03:15: Diff Path Review Reviewed 10/21/22 10:50: POC Glucose 147 H 10/21/22 17:11: POC Glucose 126 H 10/21/22 21:20: POC Glucose 146 H 10/22/22 05:18: WBC 16.0 H, RBC 2.13 L, Hgb 7.1 L, Hct 23.1 L, MCV 108.5 H, MCH 33.3 H, MCHC 30.7 L, RDW Std Deviation 71.5 H, RDW Coeff of Alanna 19.3 H, Plt Coun t 314, MPV 10.5, Neut % (Auto) Not Reportable, Absolute Neuts (auto) 11.5 H, Absolute Lymphs (auto) 2.56, Total Counted 102, Neutrophils % (Manual) 72 H, Lymphocytes % (Manual) 16 L, Monocytes % (Manual) 7, Metamyelocytes % 1, Myelocytes % 2 H, Promyelocytes % 2 H, Nucleated RBCs/100 WBC 2, Diff Path Review May , Platelet Estimate ADEQUATE, RBC Morphology NORM C+C, Anisocytosis 2+, Macrocytosis 2+, Sodium 135 L, Potassium 4.5, Chloride 104, Carbon Dioxide 28.0, Anion Gap 3 L, BUN 28 H, Creatinine 5.00 H, Estim Creat Clear Calc 6.45, Est GFR (MDRD) Af Amer 11 L, Est GFR (MDRD) Non-Af 9 L, BUN/Creatinine Ratio 5.6 L, Glucose 116 H, Calcium 8.3 L 10/22/22 06:20: POC Glucose 109 H Micro: Microbiology 10/16/22 11:00 Fluid - Peritoneal Gram Stain - Final 10/16/22 11:00 Fluid - Peritoneal Body Fluid Culture - Final Culture exhibits no growth. 10/16/22 11:00 Fluid - Peritoneal Anaerobic Culture - Final No anaerobic bacteria isolated. 10/11/22 13:30 Blood Culture (Wb) - Venous Blood Culture - Final No growth in 5 days. 10/11/22 12:45 Blood Culture (Wb) - Arm Right Blood Culture - Final No growth in 5 days. 10/12/22 12:50 Fluid - Paracentesis (Abd) Gram Stain - Final 10/12/22 12:50 Fluid - Paracentesis (Abd) Body Fluid Culture - Final Coag Negative Staph 10/12/22 12:50 Fluid - Paracentesis (Abd) Anaerobic Culture - Final No anaerobic bacteria isolated. Rhythm Strip Ectopy: - (Majority paced) Physical Exam Narrative Seen and examined. Patient more awake and alert today. Denies fever or chills. Getting hemodialysis today. Leukocytosis. Patient had transient focal diplopia after midodrine 10 mg. No other neurological symptoms. Does not suggest acute strokelike features involving large territory of brain. Physical exam General: Awake alert oriented x3 BMI 43.7 kg/m?, morbid obesity HEENT: Atraumatic, PERRLA, EOMI, Normocephalic Oral: Oral mucosa moist. No Gingival or Mucosal Lesions/ Ulcerations Neck: Supple, No JVD, Negative Carotid Bruits Lungs: Air entry diminished in bilateral lung bases. No crepitation/rhonchi Cardiovascular: Paced rhythm on monitor. Normal S1, Normal S2, systolic murmur over right second ICS. Abdomen: Peritoneal catheter present. Bowel Sounds Present, Soft, Non Tender, Non-Distended : On hemodialysis through left IJ dialysis catheter. No renal angle tenderness. No suprapubic tenderness. Extremities: No edema, Capillary Refill Less than 3 Seconds Skin: No rashes, No breakdown Musculoskeletal: No Tenderness to Palpation of Joints or Extremities Neurological: Cranial nerves II-XII grossly intact, DTR 2+/4 and Symmetrical, Neuro grossly intact Psych/Mental Status: Flat affect. Assessment & Plan Assessment/Plan (1) Septic shock: (2) Peritonitis associated with peritoneal dialysis: QUALIFIERS: Encounter type: initial encounter Qualified Code(s): T85.71XA - Infection and inflammatory reaction due to peritoneal dialysis catheter, initial encounter (3) Hypokalemia: (4) Hyperglycemia: (5) Dysphagia: QUALIFIERS: Dysphagia type: oral phase Qualified Code(s): R13.11 - Dysphagia, oral phase PLAN: Plan Patient is an 82-year-old lady with history of end-stage renal disease on peritoneal dialysis presented with syncopal episode found to be hypotensive with elevated lactic acid and leukocytosis an assessment of Septic shock Secondary to peritoneal dialysis catheter associated peritonitis made 1. Septic shock ? Secondary to peritoneal dialysis catheter associated peritonitis with coagulase negative staph. Patient met criteria for septic shock with presence of a suspected infection with SIRS criteria? as well as evidence of endorgan dysfunction with lactic acid level greater than 2. Patient did receive IV fluid in the emergency department without much response decision was subsequently made to start patient on Levophed after central line had been placed with plan for radha stanley to be admitted to the intensive care unit. As part of her management did obtain blood as well as cultures from her peritoneal fluid. Started on broad- spectrum antibiotic therapy with Zosyn and vancomycin ? 10/12/2022; patient remains on pressors ? 10/13/2022 plan is to wean off ? 10/21/2022 patient cultures came back positive for coagulation negative staph. Started on cefazolin. Discussed with the ID. Increased leukocytosis with bands 6% but no obvious signs of worsening infection like fever, hypotension. No abdominal tenderness and I think peritonitis is improved. Repeat blood cultures drawn today. ID thinks she will be good for tunneled dialysis catheter tomorrow AM. Discussed with the surgeon. 10/22: Discussed with the surgeon. Concern for leukocytosis but patient does not have other focal site of symptoms. No significant abdominal wall tenderness. Discussed with ID. Plan is to remove PD catheter tomorrow for potential ongoing nidus of infection. Wait for 2 to 3 days and then tunneled dialysis catheter. Continue IV antibiotics cefazolin for coagulase-negative staph. 2. Syncopal episode ? From hypotension from her suspected septic shock as well as possible hypov olemia from her peritoneal dialysis being resuscitated with IV fluid as discussed above 3. End-stage renal disease ? Patient is on peritoneal dialysis consult placed to Dr. Ovalle for dialysis orders. ? 10/12/2022 patient's family to run patient's dialysis ? 10/21/2022 plan is to transition from peritoneal dialysis to hemodialysis with tunneled dialysis catheter placement scheduled for 10/22/202210/22: Blood culture drawn from the left IJ dialysis catheter. Patient had transient diplopia. I think mostly due to midodrine. Midodrine dose increased to 5 mg 3 times daily. 4. Diabetes mellitus type II -patient's oral hypoglycemics held. Placed on long acting insulin, Accu-Cheks a.c. and at bedtime and covered with sliding scale insulin 5. Anemia - Secondary to chronic disorder monitoring H&H and transfuse if patient becomes symptomatic or hemoglobin falls below 7 6. Dyslipidemia -Patient is on statin therapy, continued at home dose 7. Essential hypertension ? Patient antihypertensives held given her presentation low blood pressure 8. Hypothyroidism - Patient is on levothyroxine home dose continued 9. GERD ? On PPI 10. Hypokalemia ? Corrected per protocol repeat labs ordered in a.m. for monitoring 11. 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 Nonobstructive coronary artery disease ? Currently stable on recommended medications 13. Depression with anxiety ? Patient is on bupropion 14. Class II obesity with BMI of 39.1 - complicating care, Weight loss advised 15. DVT prophylaxis ? SC heparin 16. Physical deconditioning - Requested for PT OT eval and social media specialist to assist with discharge planning Charges/Coding Visit Charges Inpatient E&M: 69718 Subs Hosp L2
--- NOTE | 2022-10-22 09:48 | PCM.PN.ID ---
Physical Exam Narrative Feeling ok, no fever, no cough or SOB, no abd pain, no n/v/d, no new rash. Const alert and no apparent distress Resp normal air movement and clear to auscultation bilaterally Cardio regular rate and regular rhythm GI soft to palpation, non-tender and non-distended Skin no rashes or lesions noted Skin Narrative: No redness around HD cath or PD cath ID ID: Route of nutrition/ use of supplements: [] Nutritional Intake: [] IV Site: [] Mittal Catheter: [] Assessment & Plan Assessment/Plan (1) Peritonitis associated with peritoneal dialysis: QUALIFIERS: Encounter type: initial encounter Qualified Code(s): T85.71XA - Infection and inflammatory reaction due to peritoneal dialysis catheter, initial encounter (2) Septic shock: PLAN: due to peritonitis. Fluid with MS-CoNS, improving, repeat cx is neg. Cont cefazolin. Wbc rising past two days, no other clear sign of new infection. Repeat bcx remains neg so far. Cont cefazolin, plan originally was for 2 week course to stop 10/25, but will extend due to her wbc. Permacath placement is on hold. Would suggest removing PD cath now as a potential ongoing nidus of infection. D/w Dr. Beverly. Will follow. Dr. Cadet will cover for the rest of the week.
[2022-10-22 09:50] LABS: Pathologist Review Reviewed
[2022-10-22 09:55] LABS: Pathologist Review Reviewed
[2022-10-22 10:12] LABS: Pathologist Review Reviewed
[2022-10-22] MEDS: Insulin Glargine-YFGN 100 UNIT/ML Pen 8 UNIT SC (11:00)
[2022-10-22 11:14] LABS: Bedside Glucose 117 mg/dL (74-106)
--- NOTE | 2022-10-22 12:59 | CASEMGMT ---
VITALY called patient's daughter Lydia and checked in on their care home decision. Lydia said they are more than likely going to go with [facility]. VITALY let Lydia know that Bebeto Manuel called [facility] and obtained a chair time for patient. VITALY let Lydia know patient's chair time is M,W, and F at 13:45. Lydia said she will be in today for patient's procedure. VITALY let her know that it was canceled for today. Lydia will be in later and talk with the RN. Plan: [facility] pending patient being medically ready and insurance appoval. Carmen Farias HOME PLANNING CONSULTANT SALESPERSON LOADER ENGINEER
[2022-10-22] MEDS: Cefazolin 1 GM/50 ML BAG IV (13:22)
[2022-10-22] MEDS: Midodrine HCl 5 MG Tablet PO ×2 (13:24→16:42)
--- NOTE | 2022-10-22 14:54 | CASEMGMT ---
Discharge Planning Asst. Updates sent to [facility] via [employer]. Sravani Linares, Discharge Planning Asst.
[2022-10-22] MEDS: Acetaminophen 325 MG Tablet 650 MG PO ×2 (16:41→22:12)
[2022-10-22] MEDS: Heparin Injection (Vial) 5,000 UNIT/ML VIAL 5000 UNIT SC ×2 (16:50→21:58)
[2022-10-22 17:04] LABS: Bedside Glucose 59 mg/dL (74-106)
[2022-10-22 18:36] LABS: Bedside Glucose 112 mg/dL (74-106)
--- NOTE | 2022-10-22 19:46 | PCM.PN.REN ---
Subjective Subjective no new events Objective Data Objective Data Vital Signs: Vital Signs Temp Pulse Resp BP Pulse Ox O2 Del Method O2 Flow Rate 97.4 F L 80 16 102/68 94 Nasal Cannula 2 10/22/22 15:55 10/22/22 15:55 10/22/22 15:55 10/22/22 15:55 10/22/22 15:55 10/22/22 16:00 10/22/22 16:00 FiO2 98 10/17/22 08:14 Oxygen Flow Rate (L/min) 2 Oxygen Delivery Method Nasal Cannula Weight: 98 kg Body Mass Index (BMI) 42.2 Intake & Output: Intake and Output for Last 24 Hours 10/20/22 10/21/22 10/22/22 23:59 23:59 23:59 Intake Total 390 / 540 770 / 890 670 / 670 Output Total 6200 / 6200 0 / 0 Balance 390 / 540 -5430 / -5310 670 / 670 Lab / Micro Data 10/22/22 05:18 10/22/22 05:18 Labs: Laboratory Results - last 24 hr 10/19/22 04:35: Diff Path Review Reviewed 10/20/22 05:40: Diff Path Review Reviewed 10/21/22 05:03: Diff Path Review Reviewed 10/21/22 21:20: POC Glucose 146 H 10/22/22 05:18: WBC 16.0 H, RBC 2.13 L, Hgb 7.1 L, Hct 23.1 L, MCV 108.5 H, MCH 33.3 H, MCHC 30.7 L, RDW Std Deviation 71.5 H, RDW Coeff of Alanna 19.3 H, Plt Count 314, MPV 10.5, Neut % (Auto) Not Reportable, Absolute Neuts (auto) 11.5 H, Absolute Lymphs (auto) 2.56, Total Counted 102, Neutrophils % (Manual) 72 H, Lymphocytes % (Manual) 16 L, Monocytes % (Manual) 7, Metamyelocytes % 1, Myelocytes % 2 H, Promyelocytes % 2 H, Nucleated RBCs/100 WBC 2, Diff Path Review May , Platelet Estimate ADEQUATE, RBC Morphology NORM C+C, Anisocytosis 2+, Macrocytosis 2+, Sodium 135 L, Potassium 4.5, Chloride 104, Carbon Dioxide 28.0, Anion Gap 3 L, BUN 28 H, Creatinine 5.00 H, Estim Creat Clear Calc 6.45, Est GFR (MDRD) Af Amer 11 L, Est GFR (MDRD) Non-Af 9 L, BUN/Creatinine Ratio 5.6 L, Glucose 116 H, Calcium 8.3 L 10/22/22 06:20: POC Glucose 109 H 10/22/22 10:54: POC Glucose 117 H 10/22/22 16:33: POC Glucose 59 L 10/22/22 18:18: POC Glucose 112 H Micro: Microbiology 10/16/22 11:00 Fluid - Peritoneal Gram Stain - Final 10/16/22 11:00 Fluid - Peritoneal Body Fluid Culture - Final Culture exhibits no growth. 10/16/22 11:00 Fluid - Peritoneal Anaerobic Culture - Final No anaerobic bacteria isolated. 10/11/22 13:30 Blood Culture (Wb) - Venous Blood Culture - Final No growth in 5 days. 10/11/22 12:45 Blood Culture (Wb) - Arm Right Blood Culture - Final No growth in 5 days. 10/12/22 12:50 Fluid - Paracentesis (Abd) Gram Stain - Final 10/12/22 12:50 Fluid - Paracentesis (Abd) Body Fluid Culture - Final Coag Negative Staph 10/12/22 12:50 Fluid - Paracentesis (Abd) Anaerobic Culture - Final No anaerobic bacteria isolated. Rhythm Strip Ectopy: - (Majority paced) Physical Exam Narrative General: Alert and oriented x3, NAD. Cardiovascular: Normal S1, S2. No rubs, murmurs, or gallops. Respiratory: Lungs are diminished breath sounds posterior bases Abdomen: Normal bowel sounds, soft. Dressing clean dry and intact to PD catheter Extremities: pitting edema b/l legs, thighs, arms. edema to lower abdomen Nontunneled temporary left IJ dialysis catheter dressing clean, dry and intact Assessment & Plan Assessment/Plan (1) ESRD on peritoneal dialysis: (2) Septic shock: (3) Peritonitis associated with peritoneal dialysis: QUALIFIERS: Encounter type: initial encounter Qualified Code(s): T85.71XA - Infection and inflammatory reaction due to peritoneal dialysis catheter, initial encounter PLAN: Plan Impression/Plan: The patient is a 82-year-old woman with past history of ESRD, type 2 diabetes mellitus, hypertension, CAD, heart failure with preserved ejection fraction, PAD, hypothyroidism, and hyperlipidemia. The patient presented to the hospital on 10/11/2022 with syncope and was diagnosed with circulatory shock requiring IV vasopressor and volume expansion. - ESRD had been on PD; now on HD, volume status better overall needs tunneled dialysis line PD catheter removal eventually edema better
[2022-10-22] MEDS: Latanoprost 0.005% 1 Bottle 1 DRP EACH EYE (21:58)
[2022-10-22] MEDS: Atorvastatin Calcium 80 MG Tablet PO (21:59)
[2022-10-22] MEDS: Montelukast 10 MG Tablet PO (21:59)
[2022-10-23] VITALS (24 sets, daily range): BP systolic 90–186; BP diastolic 30–81; PULSE 69–76; RESP 12–20; TEMP 36.2–36.9; O2SAT 93–100; BMI 43.6; BMI 43.9; BMI 42.3
[2022-10-23 03:12] LABS: Bedside Glucose 121 mg/dL (74-106)
[2022-10-23] MEDS: Budesonide Respules 0.5 MG/2 ML AMPUL.NEB. INHALATION ×2 (07:00→20:43)
[2022-10-23] MEDS: Ipratropium 0.5 MG/2.5 ML SOLUTION INHALATION ×2 (07:00→20:42)
[2022-10-23 07:16] LABS: Bedside Glucose 127 mg/dL (74-106)
[2022-10-23] MEDS: 0.9% Normal Saline 1,000 ML IV.SOLN. 1000 ML OPERA.SITE (08:13)
[2022-10-23] MEDS: 0.9% Saline Lock 10 ML Syringe IV ×4 (08:13→11:46)
[2022-10-23] MEDS: PureFlow B 2K Dialysis Soln 1 BAG 6 BAG PF (08:14)
--- NOTE | 2022-10-23 09:51 | PCM.TXEXTCAR ---
Diet Diet Order/Speech Therapy: 10/23/22 07:30 Diet: Nothing Per Oral Type of Dietary Supplement:: Nepro - 4 oz tid w/ meals Is pt able to select menu?: Yes Diet Comments: Distant Sup.,alt. bites/sips, sitting upright 30 min after PO Wound(s) right elbow: Wound Type: Skin Tear left elbow: Wound Type: Skin Tear right stanton: Wound Type: Skin Tear Left stanton: Wound Type: Skin Tear Problem/Diagnosis (1) ESRD on peritoneal dialysis: Status: Chronic Code(s): N18.6 - End stage renal disease; Z99.2 - Dependence on renal dialysis (2) Septic shock: Status: Acute Code(s): A41.9 - Sepsis, unspecified organism; R65.21 - Severe sepsis with septic shock (3) Peritonitis associated with peritoneal dialysis: Status: Acute Code(s): T85.71XA - Infection and inflammatory reaction due to peritoneal dialysis catheter, initial encounter Plan Patient is an 82-year-old lady with history of end-stage renal disease on peritoneal dialysis presented with syncopal episode found to be hypotensive with elevated lactic acid and leukocytosis an assessment of Septic shock Secondary to peritoneal dialysis catheter associated peritonitis made 1. Septic shock ? Secondary to peritoneal dialysis catheter associated peritonitis with coagulase negative staph. Patient met criteria for septic shock with presence of a suspected infection with SIRS criteria? as well as evidence of endorgan dysfunction with lactic acid level greater than 2. Patient did receive IV fluid in the emergency department without much response decision was subsequently made to start patient on Levophed after central line had been placed with plan for patient to be admitted to the intensive care unit. As part of her management did obtain blood as well as cultures from her peritoneal fluid. Started on broad-spectrum antibiotic therapy with Zosyn and vancomycin ? 10/12/2022; patient remains on pressors ? 10/13/2022 plan is to wean off ? 10/21/2022 patient cultures came back positive for coagulation negative staph. Started on cefazolin. Discussed with the ID. Increased leukocytosis with bands 6% but no obvious signs of worsening infection like fever, hypotension. No abdominal tenderness and I think peritonitis is improved. Repeat blood cultures drawn today. ID thinks she will be good for tunneled dialysis catheter tomorrow AM. Discussed with the surgeon. 7/25: Discussed with the surgeon. Concern for leukocytosis but patient does not have other focal site of symptoms. No significant abdominal wall tenderness. Discussed with ID. Plan is to remove PD catheter tomorrow for potential ongoing nidus of infection. Wait for 2 to 3 days and then tunneled dialysis catheter. Continue IV antibiotics cefazolin for coagulase-negative staph. 2. Syncopal episode ? From hypotension from her suspected septic shock as well as possible hypovolemia from her peritoneal dialysis being resuscitated with IV fluid as discussed above 3. End-stage renal disease ? Patient is on peritoneal dialysis consult placed to Dr. Ovalle for dialysis orders. ? 10/12/2022 patient's family to run patient's dialysis ? 10/21/2022 plan is to transition from peritoneal dialysis to hemodialysis with tunneled dialysis catheter placement scheduled for 10/22/202210/22: Blood culture drawn from the left IJ dialysis catheter. Patient had transient diplopia. I think mostly due to midodrine. Midodrine dose increased to 5 mg 3 times daily. 4. Diabetes mellitus type II -patient's oral hypoglycemics held. Placed on long acting insulin, Accu-Cheks a.c. and at bedtime and covered with sliding scale insulin 5. Anemia - Secondary to chronic disorder monitoring H&H and transfuse if patient becomes symptomatic or hemoglobin falls below 7 6. Dyslipidemia -Patient is on statin therapy, continued at home dose 7. Essential hypertension ? Patient antihypertensives held given her presentation low blood pressure 8. Hypothyroidism - Patient is on levothyroxine home dose continued 9. GERD ? On PPI 10. Hypokalemia ? Corrected per protocol repeat labs ordered in a.m. for monitoring 11. 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 Nonobstructive coronary artery disease ? Currently stable on recommended medications 13. Depression with anxiety ? Patient is on bupropion 14. Class II obesity with BMI of 39.1 - complicating care, Weight loss advised 15. DVT prophylaxis ? SC heparin 16. Physical deconditioning - Requested for PT OT eval and nephrology social worker to assist with discharge planning Allergies/Procedures Done in Hospital Allergies metformin [From Glucophage] Allergy (Severe, Verified 10/11/22 11:40) renal failure adhesive Allergy (Intermediate, Verified 10/11/22 11:40) blisters oxycodone Allergy (Intermediate, Verified 10/11/22 11:40) hallucinations tramadol Allergy (Intermediate, Verified 10/11/22 11:40) Vomiting ERIC Inhibitors Adverse Reaction (Intermediate, Verified 10/11/22 11:40) cough buspirone [From BuSpar] Adverse Reaction (Verified 10/11/22 11:40) Hallucinations Dietary and Speech Recommendations Dietitian Recommendations/Changes: Continue General Renal diet as tolerated with texture/consistency as per PASTRYCOOK - add carb control restriction if levels >200. Will continue 4 oz PO Nepro TID w/ meals for increased protein if consumed. Discharge Plan Admission Admit Date/Time: 10/11/22 16:07 Attending Provider: Castro Perla Primary Care Provider: Satnam Saldana Consulting Providers: Perez Goetz; Anyi Beverly; Maurice Longoria; Tono Zuniga; Elliot Diallo; Akshat Sesay; Arnie Lux; Lizbeth Osullivan PLASTIC PARTS FABRICATOR TRIMMER; Elliott Ovalle; Radha Oden Discharge Orders/Prescriptions Prescriptions: No Action omeprazole 40 mg capsule,delayed release(DR/EC) 40 mg PO DAILY atorvastatin 80 mg tablet 80 mg PO QHS albuterol sulfate 90 mcg/actuation HFA aerosol inhaler 2 puff INHALATION Q4H PRN (Reason: SHORTNESS OF BREATH ) latanoprost 0.005 % drops 1 drp OPHTHALMIC ONCE levothyroxine 137 mcg tablet 137 mcg PO MOTUWETH Rx Instructions: PT TAKES ONE TABLET (137 MCG) BY MOUTH ONCE DAILY FRIDAY THROUGH FRIDAY AND 1.5 TABLETS (205.5 MCG) FRIDAY THROUGH FRIDAY montelukast 10 mg tablet 10 mg PO QHS Spiriva Respimat 2.5 mcg/actuation mist 2 puff inhalation QAM PRN (Reason: Wheezing) ergocalciferol (vitamin D2) 50,000 unit tablet 50,000 unit PO MO acetaminophen 325 mg tablet 650 mg PO Q4H PRN (Reason: pain/fever) potassium chloride 20 mEq tablet extended release 20 meq PO MOFR meclizine 12.5 mg tablet 12.5 mg PO BID bupropion HCl 100 mg tablet 100 mg PO BID ipratropium-albuterol 0.5 mg-3 mg(2.5 mg base)/3 mL solution for nebulization 3 ml INHALATION Q6H PRN (Reason: SHORTNESS OF BREATH ) fluticasone propionate [Flovent HFA] 110 mcg/actuation HFA aerosol inhaler 1 puff INHALATION BID PRN (Reason: Wheezing) insulin glargine [Lantus Solostar U-100 Insulin] 100 unit/mL (3 mL) insulin pen 8 unit subcut DAILY Rx Instructions: PTS DAUGHTER STATES THAT THE PT SELF ADJUSTS NEEDED pioglitazone 30 mg tablet 30 mg PO DAILY calcium acetate(phosphat bind) 667 mg capsule 667 mg PO TID Patient Comments: PTS REGIS STATES THAT THEY JUST RECIEVED THIS RX IN THE MAIL AND HAVE YET TO START IT. mecobalamin (vitamin B12) 500 mcg tablet,chewable 500 mcg PO DAILY calcitriol 0.25 mcg capsule 0.25 mcg PO WEFR Patient Comments: PTS DAUGHTER STATES THAT THIS IS USUALLY TAKEN TWICE A WEEEK ON FRIDAY AND FRIDAY aspirin [Adult Aspirin Regimen] 81 mg tablet,delayed release (DR/EC) 81 mg PO DAILY carvedilol 12.5 mg tablet 12.5 mg PO DAILY levothyroxine 137 mcg capsule 205.5 mcg PO SUFRSA Rx Instructions: PT TAKES ONE TABLET (137 MCG) BY MOUTH ONCE DAILY FRIDAY THROUGH FRIDAY AND 1.5 TABLETS (205.5 MCG) FRIDAY THROUGH FRIDAY magnesium oxide 400 mg magnesium tablet 400 mg PO DAILY Referrals / Follow Up: Satnam Saldana MD [Primary Care Provider] - (3) Peritonitis associated with peritoneal dialysis Qualifiers: Encounter type: initial encounter Qualified Code(s): T85.71XA - Infection and inflammatory reaction due to peritoneal dialysis catheter, initial encounter
--- NOTE | 2022-10-23 09:53 | PN.ID_ITS ---
ID ID: Route of nutrition/ use of supplements: [] Nutritional Intake: [] IV Site: [] Mittal Catheter: [] Patient is alert overall clinically stable. Currently being dialyzed at the bedside. Plan to remove the PD catheter after hemodialysis this morning. No nausea or vomiting. No abdominal pain. On exam she is alert responsive does not appear toxic abdomen is obese but soft no focal tenderness and no peritoneal signs. PD catheter in place with no surrounding erythema. Assessment & Plan Assessment/Plan (1) Peritonitis associated with peritoneal dialysis: QUALIFIERS: Encounter type: initial encounter Qualified Code(s): T85.71XA - Infection and inflammatory reaction due to peritoneal dialysis [address], initial encounter PLAN: Continue cefazolin. Plan for removal of the PD catheter later today. Currently on hemodialysis. On abdominal exam today her abdomen is soft with no peritoneal signs.
[2022-10-23 10:11] LABS: Pathologist Review Reviewed
[2022-10-23 10:15] LABS: Absolute Neutrophil Count 9.6 X10^3/uL (2.0-7.7); Basophil# 0.06 X10^3/uL; Basophil% 0.4 % (0-1); Eosinophil# 0.24 X10^3/uL; Eosinophils% 1.8 % (0-5); Hematocrit 24.2 % (37-47); Hemoglobin 7.4 g/dL (12.0-15.0); Mean Corp Hgb Conc 30.6 g/dL (32-36); Mean Corpuscular Hgb 33.5 pg (27.0-32.0); Mean Corpuscular Volume 109.5 fL (81-99); Mean Platelet Vol. 10.1 fl (6.2-12.0); Monocyte# 0.77 X10^3/uL; Monocyte% 5.7 % (0-10); NRBC Flagged by Analyzer 8.9 % (0-5); Neutrophil # 9.59 X10^3/uL (2.7-7.7); POSITIVE COUNT YES; POSITIVE MORPHOLOGY YES; Platelet Count 323 K/mm3 (150-450); RBC Distribution Width SD 71.4 fl (35.1-43.9); Red Blood Count 2.21 M/mm3 (4.2-5.4)
[2022-10-23 10:37] LABS: Differential Indicated SCAN CRITERIA MET; White Blood Count 13.5 K/mm3 (4.4-11.0)
[2022-10-23] MEDS: Dextrose 50%-Water 25 GM/50 ML DISP.SYRIN IV (10:58)
[2022-10-23 11:08] LABS: Bedside Glucose 41 mg/dL (74-106)
--- NOTE | 2022-10-23 11:13 | PN.RENAL_ITS ---
Subjective Subjective No new complaints today. Seen on dialysis. Appears more alert, awake. Family at bedside. Plan is to do peritoneal dialysis catheter removal today. Once infection is cleared, she will get tunneled dialysis catheter. Objective Data Objective Data Vital Signs: Vital Signs Temp Pulse Resp BP Pulse Ox O2 Del Method O2 Flow Rate 97.4 F L 70 12 129/45 H 97 Nasal Cannula 2 10/23/22 08:10 10/23/22 11:06 10/23/22 11:06 10/23/22 11:06 10/23/22 11:06 10/23/22 11:06 10/23/22 11:06 FiO2 98 10/17/22 08:14 Oxygen Flow Rate (L/min) 2 Oxygen Delivery Method Nasal Cannula Weight: 101.4 kg Body Mass Index (BMI) 43.9 Intake & Output: Intake and Output for Last 24 Hours 10/21/22 10/22/22 10/23/22 23:59 23:59 23:59 Intake Total 770 / 890 761.75 / 1001.75 240 / 240 Output Total 6200 / 6200 0 / 0 0 / 0 Balance -5430 / -5310 761.75 / 1001.75 240 / 240 Lab / Micro Data 10/23/22 10:00 10/22/22 05:18 Labs: Laboratory Results - last 24 hr 10/22/22 05:18: Diff Path Review Reviewed 10/22/22 10:54: POC Glucose 117 H 10/22/22 16:33: POC Glucose 59 L 10/22/22 18:18: POC Glucose 112 H 10/22/22 21:51: POC Glucose 121 H 10/23/22 06:39: POC Glucose 127 H 10/23/22 10:00: WBC 13.5 H, RBC 2.21 L, Hgb 7.4 L, Hct 24.2 L, MCV 109.5 H, MCH 33.5 H, MCHC 30.6 L, RDW Std Deviation 71.4 H, RDW Coeff of Alanna 20.0 H, Plt Count 323, MPV 10.1, Immature Gran % (Auto) 4.100 H, Neut % (Auto) 71.0 H, Lymph % (Auto) 17.0 L, [place] % (Auto) 5.7, Eos % (Auto) 1.8, Baso % (Auto) 0.4, Absolute Neuts (auto) 9.6 H, Absolute Lymphs (auto) 2.30, Nucleated RBC % 8.9 H, Diff Path Review July10/23/22 10:49: POC Glucose 41 L* Micro: Microbiology 10/16/22 11:00 Fluid - Peritoneal Gram Stain - Final 10/16/22 11:00 Fluid - Peritoneal Body Fluid Culture - Final Culture exhibits no growth. 10/16/22 11:00 Fluid - Peritoneal Anaerobic Culture - Final No anaerobic bacteria isolated. 10/11/22 13:30 Blood Culture (Wb) - Venous Blood Culture - Final No growth in 5 days. 10/11/22 12:45 Blood Culture (Wb) - Arm Right Blood Culture - Final No growth in 5 days. 10/12/22 12:50 Fluid - Paracentesis (Abd) Gram Stain - Final 10/12/22 12:50 Fluid - Paracentesis (Abd) Body Fluid Culture - Final Coag Negative Staph 10/12/22 12:50 Fluid - Paracentesis (Abd) Anaerobic Culture - Final No anaerobic bacteria isolated. Rhythm Strip Ectopy: - (Majority paced) Physical Exam Narrative Alert awake oriented x 3 no obvious distress no pallor no icterus no JVD s1s2 no murmurs lungs clear abdomen soft no organomegaly no edema no cyanosis Assessment & Plan Assessment/Plan (1) ESRD on peritoneal dialysis: (2) Septic shock: (3) Peritonitis associated with peritoneal dialysis: QUALIFIERS: Encounter type: initial encounter Qualified Code(s): T85.71XA - Infection and inflammatory reaction due to peritoneal dialysis catheter, initial encounter PLAN: Plan Impression/Plan: The patient is a 82-year-old woman with past history of ESRD, type 2 diabetes mellitus, hypertension, CAD, heart failure with preserved ejection fraction, PAD, hypothyroidism, and hyperlipidemia. The patient presented to the hospital on 10/11/2022 with syncope and was diagnosed with circulatory shock requiring IV vasopressor and volume expansion. - ESRD had been on PD; now on HD, volume status better overall Seen on dialysis today. See orders/flowsheets. Blood pressure is acceptable. Volume status is significantly better compared to before Peritonitis. Staff. At baseline she is on long peritoneal dialysis treatment. I think she is probably done with PD for now. Plan is to get a tunneled hemodialysis catheter and maintain hemodialysis for now.
[2022-10-23 11:40] LABS: Bedside Glucose 97 mg/dL (74-106)
[2022-10-23] MEDS: Dext 5%-0.45% NS 1,000 ML 50 ML IV (11:45)
--- NOTE | 2022-10-23 11:53 | PN.HOSP_ITS ---
Reason for Visit Reason for Visit: Diagnoses Sepsis, unspecified organism (10/11/22) Hypokalemia (10/11/22) End stage renal disease (10/11/22) Dysphagia, unspecified (10/11/22) Dysphagia, oral phase (10/11/22) Severe sepsis with septic shock (10/11/22) Hyperglycemia, unspecified (10/11/22) Infection and inflammatory reaction due to peritoneal dialysis catheter, initial encounter (10/11/22) Dependence on renal dialysis (10/11/22) Objective Data Objective Data Vital Signs: Vital Signs Temp Pulse Resp BP Pulse Ox O2 Del Method O2 Flow Rate 97.4 F L 70 12 137/59 H 98 Nasal Cannula 2 10/23/22 11:40 10/23/22 11:40 10/23/22 11:40 10/23/22 11:40 10/23/22 11:40 10/23/22 11:40 10/23/22 11:40 FiO2 98 10/17/22 08:14 Oxygen Flow Rate (L/min) 2 Oxygen Delivery Method Nasal Cannula Weight: 215 lb 9.793 oz Body Mass Index (BMI) 42.3 Intake & Output: Intake and Output for Last 24 Hours 10/21/22 10/22/22 10/23/22 23:59 23:59 23:59 Intake Total 770 / 890 761.75 / 1001.75 240 / 240 Output Total 6200 / 6200 0 / 0 3600 / 3600 Balance -5430 / -5310 761.75 / 1001.75 -3360 / -3360 Lab / Micro Data 10/23/22 10:00 10/22/22 05:18 Labs: Laboratory Results - last 24 hr 10/22/22 05:18: Diff Path Review Reviewed 10/22/22 16:33: POC Glucose 59 L 10/22/22 18:18: POC Glucose 112 H 10/22/22 21:51: POC Glucose 121 H 10/23/22 06:39: POC Glucose 127 H 10/23/22 10:00: WBC 13.5 H, RBC 2.21 L, Hgb 7.4 L, Hct 24.2 L, MCV 109.5 H, MCH 33.5 H, MCHC 30.6 L, RDW Std Deviation 71.4 H, RDW Coeff of Alanna 20.0 H, Plt Count 323, MPV 10.1, Immature Gran % (Auto) 4.100 H, Neut % (Auto) 71.0 H, Lymph % (Auto) 17.0 L, [place] % (Auto) 5.7, Eos % (Auto) 1.8, Baso % (Auto) 0.4, Absolute Neuts (auto) 9.6 H, Absolute Lymphs (auto) 2.30, Nucleated RBC % 8.9 H, Diff Path Review July10/23/22 10:49: POC Glucose 41 L* 10/23/22 11:22: POC Glucose 97 Micro: Microbiology 10/16/22 11:00 Fluid - Peritoneal Gram Stain - Final 10/16/22 11:00 Fluid - Peritoneal Body Fluid Culture - Final Culture exhibits no growth. 10/16/22 11:00 Fluid - Peritoneal Anaerobic Culture - Final No anaerobic bacteria isolated. 10/11/22 13:30 Blood Culture (Wb) - Venous Blood Culture - Final No growth in 5 days. 10/11/22 12:45 Blood Culture (Wb) - Arm Right Blood Culture - Final No growth in 5 days. 10/12/22 12:50 Fluid - Paracentesis (Abd) Gram Stain - Final 10/12/22 12:50 Fluid - Paracentesis (Abd) Body Fluid Culture - Final Coag Negative Staph 10/12/22 12:50 Fluid - Paracentesis (Abd) Anaerobic Culture - Final No anaerobic bacteria isolated. Rhythm Strip Ectopy: - (Majority paced) Physical Exam Narrative Seen and examined. Patient awake and alert today. Denies fever or chills. Getting hemodialysis today. Leukocytosis improving. Physical exam General: Awake alert oriented x3 BMI 43.7 kg/m?, morbid obesity HEENT: Atraumatic, PERRLA, EOMI, Normocephalic Oral: Oral mucosa moist. No Gingival or Mucosal Lesions/ Ulcerations Neck: Supple, No JVD, Negative Carotid Bruits Lungs: Air entry diminished in bilateral lung bases. No crepitation/rhonchi Cardiovascular: Paced rhythm on monitor. Normal S1, Normal S2, systolic murmur over right second ICS. Abdomen: Peritoneal catheter present. Bowel Sounds Present, Soft, Non Tender, Non-Distended : On hemodialysis through left IJ dialysis catheter. No renal angle tenderness. No suprapubic tenderness. Extremities: No edema, Capillary Refill Less than 3 Seconds Skin: No rashes, No breakdown Musculoskeletal: No Tenderness to Palpation of Joints or Extremities. Chronic weakness of the left lower extremity more than right lower extremity. Stiffness at knee and hip joints. Neurological: Cranial nerves II-XII grossly intact, DTR 2+/4 and Symmetrical, Neuro grossly intact Psych/Mental Status: Flat affect. Assessment & Plan Assessment/Plan (1) ESRD on peritoneal dialysis: (2) Septic shock: (3) Peritonitis associated with peritoneal dialysis: QUALIFIERS: Encounter type: initial encounter Qualified Code(s): T85.71XA - Infection and inflammatory reaction due to peritoneal dialysis catheter, initial encounter PLAN: Plan Patient is an 82-year-old lady with history of end-stage renal disease on peritoneal dialysis presented with syncopal episode found to be hypotensive with elevated lactic acid and leukocytosis an assessment of Septic shock Secondary to peritoneal dialysis catheter associated peritonitis made 1. Septic shock ? Secondary to peritoneal dialysis catheter associated peritonitis with coagulase negative staph. Patient met criteria for septic shock with presence of a suspected infection with SIRS criteria? as well as evidence of endorgan dysfunction with lactic acid level greater than 2. Patient did receive IV fluid in the emergency department without much response decision was subsequently made to start patient on Levophed after central line had been placed with plan for patient to be admitted to the intensive care unit. As part of her management did obtain blood as well as cultures from her peritoneal fluid. Started on broad-spectrum antibiotic therapy with Zosyn and vancomycin ? 10/12/2022; patient remains on pressors ? 10/13/2022 plan is to wean off ? 10/21/2022 patient cultures came back positive for coagulation negative staph. Started on cefazolin. Discussed with the ID. Increased leukocytosis with bands 6% but no obvious signs of worsening infection like fever, hypotension. No abdominal tenderness and I think peritonitis is improved. Repeat blood cultures drawn today. ID thinks she will be good for tunneled dialysis catheter tomorrow AM. Discussed with the surgeon. 10/22: Discussed with the surgeon. Concern for leukocytosis but patient does not have other focal site of symptoms. No significant abdominal wall tenderness. Discussed with ID. Plan is to remove PD catheter tomorrow for potential ongoing nidus of infection. Wait for 2 to 3 days and then tunneled dialysis catheter. Continue IV antibiotics cefazolin for coagulase-negative staph. 10/23: Plan for PD catheter removal. Continue IV cefazolin. Patient getting hemodialysis. No peritoneal signs on abdominal exam. 2. Syncopal episode ? From hypotension from her suspected septic shock as well as possible hypovolemia from her peritoneal dialysis being resuscitated with IV fluid as discussed above 3. End-stage renal disease ? Patient is on peritoneal dialysis consult placed to Dr. Ovalle for dialysis orders. ? 10/12/2022 patient's family to run patient's dialysis ? 10/21/2022 plan is to transition from peritoneal dialysis to hemodialysis with tunneled dialysis catheter placement scheduled for 10/22/202210/22: Blood culture drawn from the left IJ dialysis catheter. Patient had transient diplopia. I think mostly due to midodrine. Midodrine dose increased to 5 mg 3 times daily. 10/23: Blood culture from 10/22 negative for more than 48 hours. Microbiology Past 72 Hours 10/21/22 08:32 Blood Culture (Wb) - Anticubital Left Blood Culture - Preliminary No growth in 48 hours. 10/16/22 11:00 Fluid - Peritoneal Gram Stain - Final 10/16/22 11:00 Fluid - Peritoneal Body Fluid Culture - Final Culture exhibits no growth. 10/16/22 11:00 Fluid - Peritoneal Anaerobic Culture - Final No anaerobic bacteria isolated. Laboratory Results 10/22/22 05:18: Diff Path Review Reviewed 10/22/22 18:18: POC Glucose 112 H 10/22/22 21:51: POC Glucose 121 H 10/23/22 06:39: POC Glucose 127 H 10/23/22 10:00: WBC 13.5 H, RBC 2.21 L, Hgb 7.4 L, Hct 24.2 L, MCV 109.5 H, MCH 33.5 H, MCHC 30.6 L, RDW Std Deviation 71.4 H, RDW Coeff of Alanna 20.0 H, Plt Count 323, MPV 10.1, Immature Gran % (Auto) 4.100 H, Neut % (Auto) 71.0 H, Lymph % (Auto) 17.0 L, [place] % (Auto) 5.7, Eos % (Auto) 1.8, Baso % (Auto) 0.4, Absolute Neuts (auto) 9.6 H, Absolute Lymphs (auto) 2.30, Nucleated RBC % 8.9 H, Diff Path Review July10/23/22 10:49: POC Glucose 41 L* 10/23/22 11:22: POC Glucose 97 10/23/22 12:22: POC Glucose 92 10/23/22 13:28: POC Glucose 206 H 10/23/22 16:52: POC Glucose 103 4. Diabetes mellitus type II -patient's oral hypoglycemics held. Placed on long acting insulin, Accu-Cheks a.c. and at bedtime and covered with sliding scale insulin 10/21: Patient had hypoglycemia glucose 41. D50 was given. Repeat glucose 97. Patient started on D5 half NS. Repeat glucose is 206 103. Hold scheduled insulin. 5. Anemia - Secondary to chronic disorder monitoring H&H and transfuse if patient becomes symptomatic or hemoglobin falls below 7 6. Dyslipidemia -Patient is on statin therapy, continued at home dose 7. Essential hypertension ? Patient antihypertensives held given her presentation low blood pressure 8. Hypothyroidism - Patient is on levothyroxine home dose continued 9. GERD ? On PPI 10. Hypokalemia ? Corrected per protocol repeat labs ordered in a.m. for monitoring 11. 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 Nonobstructive coronary artery disease ? Currently stable on recommended medications 13. Depression with anxiety ? Patient is on bupropion 14. Class II obesity with BMI of 39.1 - complicating care, Weight loss advised 15. DVT prophylaxis ? SC heparin 16. Physical deconditioning - Requested for PT OT eval and child protective services social worker to assist with discharge planning Charges/Coding Visit Charges Inpatient E&M: 30620 Subs Hosp L2
[2022-10-23] MEDS: Cefazolin 1 GM/50 ML BAG IV (12:45)
[2022-10-23 12:47] LABS: Bedside Glucose 92 mg/dL (74-106)
[2022-10-23] MEDS: Bupivacaine Mpf 0.5% 30 ML VIAL (13:25)
--- NOTE | 2022-10-23 13:27 | OP.PCM_ITS ---
Report of Operation Date of Procedure: 10/23/22 Pre-Operative Diagnosis: History of infected peritoneal dialysis catheter, leuk ocytosis Post-Operative Diagnosis: Same Surgery/Procedure Performed:: Removal of peritoneal dialysis catheter Surgeon: Anyi Beverly Type of Anesthesia: Local MAC Anesthesiologist: Adalberto Garcia Special Medications: Ancef 2 g IV x1 Specimen's removed: Peritoneal dialysis catheter?tip sent for culture Estimated Blood Loss (mL): minimal Description of Procedure: Patient brought into the operating placed spine on operating table. Timeout was completed verifying patient procedure, site, positioning, special equipment prior to beginning the procedure. MAC anesthesia was induced. Patient abdomen prepped and draped in usual sterile fashion with Betadine. Local anesthesia of 0.5% Marcaine was infiltrated near the exit site of the peritoneal dialysis catheter. Incision was made with a 15 blade scalpel to the largest exit site. The 2 cuffs of the peritoneal dialysis catheter was cleared from the surrounding tissue with hemostats and iris scissors. Once the 2 cuffs were completely dissected from tissue the catheter easily pulled out with traction. Tip of catheter was sent for culture. The fascia was closed with [id number] 0 Vicryl suture. The skin was closed loosely with 2 interrupted 3-0 nylon sutures. Patient tolerated procedure well and was taken to postanesthesia care in stable condition. Complications none
--- NOTE | 2022-10-23 13:55 | CASEMGMT ---
Patient was approved to go to [place]. Unfortunately patient is not medically ready. SW called Ene at [facility] and let her know the placement of patient's tunneled dialysis catheter has been postponed. SW will keep her updated on whether or not patient will be there on Friday. Carmen Farias [employer]
[2022-10-23 14:08] LABS: Bedside Glucose 206 mg/dL (74-106)
--- NOTE | 2022-10-23 14:48 | NURSING ---
This RN communicated with Dr. Garza today & received order to remove temporary dialysis catheter if WBC is below 13.5 on 10/24. This RN will contact Dr. Garza if WBC is greater than 13.5 or if this RN has any concerns on prior to removal on 10/24
[2022-10-23] MEDS: Magnesium Chloride 64 MG Delay Rel.Tablet 128 MG PO (16:48)
[2022-10-23] MEDS: Cyanocobalamin 500 MCG Tablet PO (16:48)
[2022-10-23] MEDS: Pantoprazole Sodium 40 MG Tablet PO (16:48)
[2022-10-23] MEDS: Gabapentin 100 MG Capsule PO (16:48)
[2022-10-23] MEDS: Aspirin E.C. 81 MG Tablet PO (16:48)
[2022-10-23] MEDS: Midodrine HCl 5 MG Tablet PO (16:48)
[2022-10-23] MEDS: Acetaminophen 325 MG Tablet 650 MG PO ×2 (16:56→23:39)
[2022-10-23 17:11] LABS: Bedside Glucose 103 mg/dL (74-106)
[2022-10-23] MEDS: Montelukast 10 MG Tablet PO (21:56)
[2022-10-23] MEDS: Latanoprost 0.005% 1 Bottle 1 DRP EACH EYE (21:56)
[2022-10-23] MEDS: Atorvastatin Calcium 80 MG Tablet PO (21:57)
[2022-10-23] MEDS: Heparin Injection (Vial) 5,000 UNIT/ML VIAL 5000 UNIT SC (21:57)
[2022-10-23] MEDS: buPROPion 100 MG Tablet PO (21:57)
[2022-10-23 22:43] LABS: Bedside Glucose 132 mg/dL (74-106)
[2022-10-24] VITALS (13 sets, daily range): BP systolic 120–145; BP diastolic 33–42; PULSE 66–100; RESP 14–20; TEMP 35.8–37; O2SAT 95–100; BMI 42.0
[2022-10-24] MEDS: Dext 5%-0.45% NS 1,000 ML 50 ML IV (01:33)
[2022-10-24 05:54] LABS: Absolute Lymphocyte Count 1.62 X10^3/uL (0.83-4.51); Absolute Neutrophil Count 10.8 X10^3/uL (2.0-7.7); Basophil# 0.05 X10^3/uL; Basophil% 0.4 % (0-1); Eosinophil# 0.21 X10^3/uL; Eosinophils% 1.5 % (0-5); Hematocrit 23.4 % (37-47); Lymphocyte # 1.62 X10^3/ul (0.83-4.51); Lymphocyte % 11.7 % (19-41); Mean Corp Hgb Conc 29.9 g/dL (32-36); Mean Corpuscular Hgb 33.5 pg (27.0-32.0); Mean Platelet Vol. 10.5 fl (6.2-12.0); Monocyte% 5.8 % (0-10); NRBC Flagged by Analyzer 4.7 % (0-5); Neutrophil # 10.81 X10^3/uL (2.7-7.7); POSITIVE MORPHOLOGY YES; Platelet Count 323 K/mm3 (150-450); RBC Distribution Width CV 20.5 % (11.6-14.6); RBC Distribution Width SD 72.9 fl (35.1-43.9); Red Blood Count 2.09 M/mm3 (4.2-5.4); White Blood Count 13.9 K/mm3 (4.4-11.0)
[2022-10-24 06:02] LABS: Differential Indicated SCAN CRITERIA MET
[2022-10-24] MEDS: 0.9% Saline Lock 10 ML Syringe IV (06:26)
[2022-10-24 06:28] LABS: Anisocytosis 2+
[2022-10-24 06:29] LABS: Macrocytosis 2+
[2022-10-24 06:30] LABS: Anion Gap 5 (5-15); BUN 24 mg/dL (7-18); BUN/Creat Ratio 5.1 RATIO (10-20); Calcium,Total 8.3 mg/dL (8.5-10.1); Chloride 100 mmol/L (98-107); Creatinine, Serum 4.69 mg/dL (0.55-1.02); EST Glomerular Filtration Rate 10 mL/min (>60); Est Glom Filt Rate - Afr Amer 12 mL/min (>60); Estimated Creatinine Clearance 6.87 ml/min; Glucose 149 mg/dL (74-106); Sodium Level 132 mmol/L (136-145)
[2022-10-24] MEDS: Budesonide Respules 0.5 MG/2 ML AMPUL.NEB. INHALATION ×2 (07:15→20:41)
[2022-10-24] MEDS: Ipratropium 0.5 MG/2.5 ML SOLUTION INHALATION ×3 (07:15→20:41)
[2022-10-24 07:22] LABS: Bedside Glucose 82 mg/dL (74-106)
--- NOTE | 2022-10-24 08:21 | NURSING ---
Leaving temp dialysis cath in place per Dr. Garza r/t increased wbc. will be re-evaluated later today or tomorrow
--- NOTE | 2022-10-24 08:54 | PCM.PN.HOSP ---
Reason for Visit Reason for Visit: Diagnoses Sepsis, unspecified organism (10/11/22) Hypokalemia (10/11/22) End stage renal disease (10/11/22) Dysphagia, unspecified (10/11/22) Dysphagia, oral phase (10/11/22) Severe sepsis with septic shock (10/11/22) Hyperglycemia, unspecified (10/11/22) Infection and inflammatory reaction due to peritoneal dialysis catheter, initial encounter (10/11/22) Dependence on renal dialysis (10/11/22) Objective Data Objective Data Vital Signs: Vital Signs Temp Pulse Resp BP Pulse Ox O2 Del Method O2 Flow Rate 97.6 F L 72 19 H 120/42 L 95 Nasal Cannula 2 10/24/22 06:16 10/24/22 07:45 10/24/22 07:45 10/24/22 06:16 10/24/22 08:14 10/24/22 08:14 10/24/22 08:14 FiO2 98 10/17/22 08:14 Oxygen Flow Rate (L/min) 2 Oxygen Delivery Method Nasal Cannula Weight: 215 lb 9.793 oz Body Mass Index (BMI) 42.0 Intake & Output: Intake and Output for Last 24 Hours 10/22/22 10/23/22 10/24/22 23:59 23:59 23:59 Intake Total 761.75 / 1001.75 690 / 690 952.5 / 952.5 Output Total 0 / 0 3600 / 3600 Balance 761.75 / 1001.75 -2910 / -2910 952.5 / 952.5 Lab / Micro Data 10/24/22 04:50 10/24/22 04:50 Labs: Laboratory Results - last 24 hr 10/22/22 05:18: Diff Path Review Reviewed 10/23/22 10:00: WBC 13.5 H, RBC 2.21 L, Hgb 7.4 L, Hct 24.2 L, MCV 109.5 H, MCH 33.5 H, MCHC 30.6 L, RDW Std Deviation 71.4 H, RDW Coeff of Alanna 20.0 H, Plt Count 323, MPV 10.1, Immature Gran % (Auto) 4.100 H, Neut % (Auto) 71.0 H, Lymph % (Auto) 17.0 L, Mclean % (Auto) 5.7, Eos % (Auto) 1.8, Baso % (Auto) 0.4, Absolute Neuts (auto) 9.6 H, Absolute Lymphs (auto) 2.30, Nucleated RBC % 8.9 H, Diff Path Review July10/23/22 10:49: POC Glucose 41 L* 10/23/22 11:22: POC Glucose 97 10/23/22 12:22: POC Glucose 92 10/23/22 13:28: POC Glucose 206 H 10/23/22 16:52: POC Glucose 103 10/23/22 21:52: POC Glucose 132 H 10/24/22 04:50: WBC 13.9 H, RBC 2.09 L, Hgb 7.0 L, Hct 23.4 L, MCV 112.0 H, MCH 33.5 H, MCHC 29.9 L, RDW Std Deviation 72.9 H, RDW Coeff of Alanna 20.5 H, Plt Count 323, MPV 10.5, Immature Gran % (Auto) 2.600 H, Neut % (Auto) 78.0 H, Lymph % (Auto) 11.7 L, Mclean % (Auto) 5.8, Eos % (Auto) 1.5, Baso % (Auto) 0.4, Absolute Neuts (auto) 10.8 H, Absolute Lymphs (auto) 1.62, Nucleated RBC % 4.7, Anisocytosis 2+, Macrocytosis 2+, Sodium 132 L, Potassium 4.0, Chloride 100, Carbon Dioxide 27.0, Anion Gap 5, BUN 24 H, Creatinine 4.69 H, Estim Creat Clear Calc 6.87, Est GFR (MDRD) Af Amer 12 L, Est GFR (MDRD) Non-Af 10 L, BUN/Creatinine Ratio 5.1 L, Glucose 149 H, Calcium 8.3 L 10/24/22 06:19: POC Glucose 82 Micro: Microbiology 10/21/22 08:32 Blood Culture (Wb) - Anticubital Left Blood Culture - Preliminary No growth in 48 hours. 10/16/22 11:00 Fluid - Peritoneal Gram Stain - Final 10/16/22 11:00 Fluid - Peritoneal Body Fluid Culture - Final Culture exhibits no growth. 10/16/22 11:00 Fluid - Peritoneal Anaerobic Culture - Final No anaerobic bacteria isolated. 10/11/22 13:30 Blood Culture (Wb) - Venous Blood Culture - Final No growth in 5 days. 10/11/22 12:45 Blood Culture (Wb) - Arm Right Blood Culture - Final No growth in 5 days. 10/12/22 12:50 Fluid - Paracentesis (Abd) Gram Stain - Final 10/12/22 12:50 Fluid - Paracentesis (Abd) Body Fluid Culture - Final Coag Negative Staph 10/12/22 12:50 Fluid - Paracentesis (Abd) Anaerobic Culture - Final No anaerobic bacteria isolated. Rhythm Strip Ectopy: - (Majority paced) Physical Exam Narrative Seen and examined. Patient awake and alert today. No acute change. Denies fever or chills. Physical exam General: Awake alert oriented x3 BMI 43.7 kg/m?, morbid obesity HEENT: Atraumatic, PERRLA, EOMI, Normocephalic Oral: Oral mucosa moist. No Gingival or Mucosal Lesions/ Ulcerations Neck: Supple, No JVD, Negative Carotid Bruits Lungs: Air entry diminished in bilateral lung bases. No crepitation/rhonchi Cardiovascular: Paced rhythm on monitor. Normal S1, Normal S2, systolic murmur over right second ICS. Abdomen: Peritoneal catheter was removed. Dressing intact and dry. Bowel Sounds Present, Soft, Non Tender, Non-Distended : On hemodialysis through left IJ dialysis catheter. No renal angle tenderness. No suprapubic tenderness. Extremities: No edema, Capillary Refill Less than 3 Seconds Skin: No rashes, No breakdown Musculoskeletal: No Tenderness to Palpation of Joints or Extremities. Chronic weakness of the left lower extremity more than right lower extremity. Stiffness at knee and hip joints. Neurological: Cranial nerves II-XII grossly intact, DTR 2+/4 and Symmetrical, Neuro grossly intact Psych/Mental Status: Flat affect. Assessment & Plan Assessment/Plan (1) ESRD on peritoneal dialysis: (2) Septic shock: (3) Peritonitis associated with peritoneal dialysis: QUALIFIERS: Encounter type: initial encounter Qualified Code(s): T85.71XA - Infection and inflammatory reaction due to peritoneal dialysis catheter, initial encounter PLAN: Plan Patient is an 82-year-old lady with history of end-stage renal disease on peritoneal dialysis presented with syncopal episode found to be hypotensive with elevated lactic acid and leukocytosis an assessment of Septic shock Secondary to peritoneal dialysis catheter associated peritonitis made 1. Septic shock ? Secondary to peritoneal dialysis catheter associated peritonitis with coagulase negative staph. Patient met criteria for septic shock with presence of a suspected infection with SIRS criteria? as well as evidence of endorgan dysfunction with lactic acid level greater than 2. Patient did receive IV fluid in the emergency department without much response decision was subsequently made to start patient on Levophed after central line had been placed with plan for patient to be admitted to the intensive care unit. As part of her management did obtain blood as well as cultures from her peritoneal fluid. Started on broad-spectrum antibiotic therapy with Zosyn and vancomycin ? 10/12/2022; patient remains on pressors ? 10/13/2022 plan is to wean off ? 10/21/2022 patient cultures came back positive for coagulation negative staph. Started on cefazolin. Discussed with the ID. Increased leukocytosis with bands 6% but no obvious signs of worsening infection like fever, hypotension. No abdominal tenderness and I think peritonitis is improved. Repeat blood cultures drawn today. ID thinks she will be good for tunneled dialysis catheter tomorrow AM. Discussed with the surgeon. 10/22: Discussed with the surgeon. Concern for leukocytosis but patient does not have other focal site of symptoms. No significant abdominal wall tenderness. Discussed with ID. Plan is to remove PD catheter tomorrow for potential ongoing nidus of infection. Wait for 2 to 3 days and then tunneled dialysis catheter. Continue IV antibiotics cefazolin for coagulase-negative staph. 10/23: Plan for PD catheter removal. Continue IV cefazolin. Patient getting hemodialysis. No peritoneal signs on abdominal exam. 10/24: Controlled-release catheter was removed. Slight increase in leukocytosis from 13.5 7-13,900. Discussed with the surgeon. No plan for putting down dialysis catheter as WBC count is slightly got elevated. 2. Syncopal episode ? From hypotension from her suspected septic shock as well as possible hypovolemia from her peritoneal dialysis being resuscitated with IV fluid as discussed above 3. End-stage renal disease ? Patient is on peritoneal dialysis consult placed to Dr. Ovalle for dialysis orders. ? 10/12/2022 patient's family to run patient's dialysis ? 10/21/2022 plan is to transition from peritoneal dialysis to hemodialysis with tunneled dialysis catheter placement scheduled for 10/22/202210/22: Blood culture drawn from the left IJ dialysis catheter. Patient had transient diplopia. I think mostly due to midodrine. Midodrine dose increased to 5 mg 3 times daily. 10/23: Blood culture from 10/22 negative for more than 48 hours. 4. Diabetes mellitus type II -patient's oral hypoglycemics held. Placed on long acting insulin, Accu-Cheks a.c. and at bedtime and covered with sliding scale insulin 10/21: Patient had hypoglycemia glucose 41. D50 was given. Repeat glucose 97. Patient started on D5 half NS. Repeat glucose is 206 103. Hold scheduled insulin. 5. Acute anemia on anemia of chronic disease - Secondary to chronic disorder monitoring H&H and transfuse if patient becomes symptomatic or hemoglobin falls below 7 10/24: Hemoglobin dropped to 7.0. Monitor PRBC ordered. 6. Dyslipidemia -Patient is on statin therapy, continued at home dose 7. Essential hypertension ? Patient antihypertensives held given her presentation low blood pressure 8. Hypothyroidism - Patient is on levothyroxine home dose continued 9. GERD ? On PPI 10. Hypokalemia ? Corrected per protocol repeat labs ordered in a.m. for monitoring 11. 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 Nonobstructive coronary artery disease ? Currently stable on recommended medications 13. Depression with anxiety ? Patient is on bupropion 14. Class II obesity with BMI of 39.1 - complicating care, Weight loss advised 15. DVT prophylaxis ? SC heparin 16. Physical deconditioning - Requested for PT OT eval and case management social worker to assist with discharge planning Microbiology Past 72 Hours 10/23/22 13:30 Catheter tip - Indwelling Cath Tip Gram Stain - Final 10/21/22 08:32 Blood Culture (Wb) - Anticubital Left Blood Culture - Preliminary No growth in 48 hours. 10/16/22 11:00 Fluid - Peritoneal Gram Stain - Final 10/16/22 11:00 Fluid - Peritoneal Body Fluid Culture - Final Culture exhibits no growth. 10/16/22 11:00 Fluid - Peritoneal Anaerobic Culture - Final No anaerobic bacteria isolated. Laboratory Results 10/23/22 10:00: Diff Path Review Reviewed 10/23/22 16:52: POC Glucose 103 10/23/22 21:52: POC Glucose 132 H 10/24/22 04:50: WBC 13.9 H, RBC 2.09 L, Hgb 7.0 L, Hct 23.4 L, MCV 112.0 H, MCH 33.5 H, MCHC 29.9 L, RDW Std Deviation 72.9 H, RDW Coeff of Alanna 20.5 H, Plt Count 323, MPV 10.5, Immature Gran % (Auto) 2.600 H, Neut % (Auto) 78.0 H, Lymph % (Auto) 11.7 L, Mclean % (Auto) 5.8, Eos % (Auto) 1.5, Baso % (Auto) 0.4, Absolute Neuts (auto) 10.8 H, Absolute Lymphs (auto) 1.62, Nucleated RBC % 4.7, Anisocytosis 2+, Macrocytosis 2+, Sodium 132 L, Potassium 4.0, Chloride 100, Carbon Dioxide 27.0, Anion Gap 5, BUN 24 H, Creatinine 4.69 H, Estim Creat Clear Calc 6.87, Est GFR (MDRD) Af Amer 12 L, Est GFR (MDRD) Non-Af 10 L, BUN/Creatinine Ratio 5.1 L, Glucose 149 H, Calcium 8.3 L 10/24/22 06:19: POC Glucose 82 10/24/22 09:53: Blood Type A POSITIVE, Antibody Screen NEGATIVE, Crossmatch See Detail 10/24/22 12:34: POC Glucose 73 L Charges/Coding Visit Charges Inpatient E&M: 97403 Subs Hosp L2
--- NOTE | 2022-10-24 09:55 | CASEMGMT ---
Discharge Planning Updates sent to [facility]. Asked how long pre-cert will be good for. Awaiting response. Sravani Linares, Discharge Planning Asst.
[2022-10-24] MEDS: Acetaminophen 325 MG Tablet 650 MG PO ×3 (10:08→23:55)
--- NOTE | 2022-10-24 10:34 | PCM.PN.REN ---
Subjective Subjective No new complaints Objective Data Objective Data Vital Signs: Vital Signs Temp Pulse Resp BP Pulse Ox O2 Del Method O2 Flow Rate 97.6 F L 72 19 H 120/42 L 95 Nasal Cannula 2 10/24/22 06:16 10/24/22 07:45 10/24/22 07:45 10/24/22 06:16 10/24/22 08:14 10/24/22 08:14 10/24/22 08:14 FiO2 98 10/17/22 08:14 Oxygen Flow Rate (L/min) 2 Oxygen Delivery Method Nasal Cannula Weight: 97.8 kg Body Mass Index (BMI) 42.0 Intake & Output: Intake and Output for Last 24 Hours 10/22/22 10/23/22 10/24/22 23:59 23:59 23:59 Intake Total 761.75 / 1001.75 690 / 690 952.5 / 952.5 Output Total 0 / 0 3600 / 3600 Balance 761.75 / 1001.75 -2910 / -2910 952.5 / 952.5 Lab / Micro Data 10/24/22 04:50 10/24/22 04:50 Labs: Laboratory Results - last 24 hr 10/23/22 10:00: WBC 13.5 H, RBC 2.21 L, Hgb 7.4 L, Hct 24.2 L, MCV 109.5 H, MCH 33.5 H, MCHC 30.6 L, RDW Std Deviation 71.4 H, RDW Coeff of Alanna 20.0 H, Plt Count 323, MPV 10.1, Immature Gran % (Auto) 4.100 H, Neut % (Auto) 71.0 H, Lymph % (Auto) 17.0 L, Arroyo % (Auto) 5.7, Eos % (Auto) 1.8, Baso % (Auto) 0.4, Absolute Neuts (auto) 9.6 H, Absolute Lymphs (auto) 2.30, Nucleated RBC % 8.9 H, Diff Path Review July10/23/22 10:49: POC Glucose 41 L* 10/23/22 11:22: POC Glucose 97 10/23/22 12:22: POC Glucose 92 10/23/22 13:28: POC Glucose 206 H 10/23/22 16:52: POC Glucose 103 10/23/22 21:52: POC Glucose 132 H 10/24/22 04:50: WBC 13.9 H, RBC 2.09 L, Hgb 7.0 L, Hct 23.4 L, MCV 112.0 H, MCH 33.5 H, MCHC 29.9 L, RDW Std Deviation 72.9 H, RDW Coeff of Alanna 20.5 H, Plt Count 323, MPV 10.5, Immature Gran % (Auto) 2.600 H, Neut % (Auto) 78.0 H, Lymph % (Auto) 11.7 L, Arroyo % (Auto) 5.8, Eos % (Auto) 1.5, Baso % (Auto) 0.4, Absolute Neuts (auto) 10.8 H, Absolute Lymphs (auto) 1.62, Nucleated RBC % 4.7, Anisocytosis 2+, Macrocytosis 2+, Sodium 132 L, Potassium 4.0, Chloride 100, Carbon Dioxide 27.0, Anion Gap 5, BUN 24 H, Creatinine 4.69 H, Estim Creat Clear Calc 6.87, Est GFR (MDRD) Af Amer 12 L, Est GFR (MDRD) Non-Af 10 L, BUN/Creatinine Ratio 5.1 L, Glucose 149 H, Calcium 8.3 L 10/24/22 06:19: POC Glucose 82 10/24/22 09:53: Crossmatch See Detail Micro: Microbiology 10/21/22 08:32 Blood Culture (Wb) - Anticubital Left Blood Culture - Preliminary No growth in 48 hours. 10/16/22 11:00 Fluid - Peritoneal Gram Stain - Final 10/16/22 11:00 Fluid - Peritoneal Body Fluid Culture - Final Culture exhibits no growth. 10/16/22 11:00 Fluid - Peritoneal Anaerobic Culture - Final No anaerobic bacteria isolated. 10/11/22 13:30 Blood Culture (Wb) - Venous Blood Culture - Final No growth in 5 days. 10/11/22 12:45 Blood Culture (Wb) - Arm Right Blood Culture - Final No growth in 5 days. 10/12/22 12:50 Fluid - Paracentesis (Abd) Gram Stain - Final 10/12/22 12:50 Fluid - Paracentesis (Abd) Body Fluid Culture - Final Coag Negative Staph 10/12/22 12:50 Fluid - Paracentesis (Abd) Anaerobic Culture - Final No anaerobic bacteria isolated. Rhythm Strip Ectopy: - (Majority paced) Physical Exam Narrative Alert awake oriented x 3 no obvious distress no pallor no icterus no JVD s1s2 no murmurs lungs clear abdomen soft no organomegaly no edema no cyanosis Assessment & Plan Assessment/Plan (1) ESRD on peritoneal dialysis: (2) Septic shock: (3) Peritonitis associated with peritoneal dialysis: QUALIFIERS: Encounter type: initial encounter Qualified Code(s): T85.71XA - Infection and inflammatory reaction due to peritoneal dialysis catheter, initial encounter PLAN: Plan Impression/Plan: The patient is a 82-year-old woman with past history of ESRD, type 2 diabetes mellitus, hypertension, CAD, heart failure with preserved ejection fraction, PAD, hypothyroidism, and hyperlipidemia. The patient presented to the hospital on 10/11/2022 with syncope and was diagnosed with circulatory shock requiring IV vasopressor and volume expansion. - ESRD had been on PD; now on HD, volume status better overall Peritonitis. PD catheter has been removed yesterday.
--- NOTE | 2022-10-24 11:47 | CASEMGMT ---
VITALY called [facility] Xiong and let Ene know patient will not be there for dialysis tomorrow. VITALY told Ene HAIDER will update her and let her know tomorrow when she can expect patient. Carmen ACLDERÓN
[2022-10-24 12:58] LABS: Bedside Glucose 73 mg/dL (74-106)
[2022-10-24 13:04] LABS: Pathologist Review Reviewed
[2022-10-24] MEDS: Cefazolin 1 GM/50 ML BAG IV (13:47)
[2022-10-24 16:21] LABS: Bedside Glucose 95 mg/dL (74-106)
[2022-10-24] MEDS: Midodrine HCl 5 MG Tablet PO (18:03)
[2022-10-24] MEDS: Gabapentin 100 MG Capsule PO (18:03)
[2022-10-24] MEDS: Montelukast 10 MG Tablet PO (22:29)
[2022-10-24] MEDS: Atorvastatin Calcium 80 MG Tablet PO (22:29)
[2022-10-24] MEDS: buPROPion 100 MG Tablet PO (22:29)
[2022-10-24] MEDS: Heparin Injection (Vial) 5,000 UNIT/ML VIAL 5000 UNIT SC (22:30)
[2022-10-24] MEDS: Latanoprost 0.005% 1 Bottle 1 DRP EACH EYE (22:31)
[2022-10-25] VITALS (22 sets, daily range): BP systolic 104–204; BP diastolic 30–64; PULSE 69–83; RESP 12–20; TEMP 36.1–36.7; O2SAT 93–100; BMI 42.2; BMI 42.4; BMI 41.1
[2022-10-25 00:18] LABS: Bedside Glucose 102 mg/dL (74-106)
[2022-10-25] MEDS: Levothyroxine 137 MCG Tablet 205.5 MCG PO (06:04)
[2022-10-25] MEDS: Heparin Injection (Vial) 5,000 UNIT/ML VIAL 5000 UNIT SC ×2 (06:04→20:52)
[2022-10-25 06:25] LABS: Absolute Lymphocyte Count 1.89 X10^3/uL (0.83-4.51); Absolute Neutrophil Count 8.7 X10^3/uL (2.0-7.7); Basophil# 0.05 X10^3/uL; Basophil% 0.4 % (0-1); Eosinophil# 0.21 X10^3/uL; Eosinophils% 1.7 % (0-5); Hematocrit 26.2 % (37-47); Hemoglobin 7.9 g/dL (12.0-15.0); Lymphocyte # 1.89 X10^3/ul (0.83-4.51); Lymphocyte % 15.7 % (19-41); Mean Corp Hgb Conc 30.2 g/dL (32-36); Mean Corpuscular Hgb 32.6 pg (27.0-32.0); Mean Corpuscular Volume 108.3 fL (81-99); Mean Platelet Vol. 10.4 fl (6.2-12.0); Monocyte# 0.91 X10^3/uL; Monocyte% 7.6 % (0-10); NRBC Flagged by Analyzer 2.7 % (0-5); Neutrophil # 8.73 X10^3/uL (2.7-7.7); Neutrophil % 72.8 % (47-70); POSITIVE MORPHOLOGY YES; Platelet Count 301 K/mm3 (150-450); RBC Distribution Width SD 72.3 fl (35.1-43.9); Red Blood Count 2.42 M/mm3 (4.2-5.4)
[2022-10-25 07:00] LABS: Bedside Glucose 83 mg/dL (74-106)
[2022-10-25 07:01] LABS: Anion Gap 7 (5-15); BUN 31 mg/dL (7-18); BUN/Creat Ratio 5.4 RATIO (10-20); Calcium,Total 8.3 mg/dL (8.5-10.1); Chloride 102 mmol/L (98-107); Creatinine, Serum 5.75 mg/dL (0.55-1.02); EST Glomerular Filtration Rate 8 mL/min (>60); Est Glom Filt Rate - Afr Amer 9 mL/min (>60); Estimated Creatinine Clearance 5.61 ml/min; Glucose 97 mg/dL (74-106); Potassium 4.9 mmol/L (3.5-5.1); Sodium Level 133 mmol/L (136-145)
[2022-10-25] MEDS: Budesonide Respules 0.5 MG/2 ML AMPUL.NEB. INHALATION ×2 (07:11→19:25)
[2022-10-25] MEDS: Ipratropium 0.5 MG/2.5 ML SOLUTION INHALATION ×3 (07:11→19:25)
[2022-10-25 07:16] LABS: Differential Indicated SCAN CRITERIA MET
[2022-10-25 08:31] LABS: Anisocytosis 2+; Differential Comment SCANNED; Macrocytosis 1+; Microcytosis 1+
[2022-10-25] MEDS: Acetaminophen 325 MG Tablet 650 MG PO ×2 (09:14→15:19)
--- NOTE | 2022-10-25 10:28 | PCM.PN.ID ---
ID ID: Route of nutrition/ use of supplements: [] Nutritional Intake: [] IV Site: [] Mittal Catheter: [] Patient is alert overall clinically stable. Status post removal of the PD catheter on Friday afternoon. Denies any abdominal pain. No nausea or vomiting. No fevers. Alert responsive does not appear toxic heart exam S1-S2 lungs are clear abdomen is obese but soft no focal tenderness. Temporary dialysis catheter left neck was removed. Assessment & Plan Assessment/Plan (1) ESRD (end stage renal disease) on dialysis: PLAN: Status post removal of a PD catheter for CAPD associated peritonitis. Clinically improving. Abdomen soft nontender. Multiple blood cultures remain negative. Currently on cefazolin. Okay to proceed with dialysis catheter from my standpoint.
[2022-10-25 11:07] LABS: Bedside Glucose 90 mg/dL (74-106)
[2022-10-25] MEDS: Cefazolin 2 GM in 0.9% Normal Saline 100 ML IV (11:21)
--- NOTE | 2022-10-25 11:21 | NURSING ---
Patient present in AC pre-op. skin tears noted to b/l arms, near elbow. nonadherent dressing and gauze krilex applied to protect arms. patient tolerated well. arm elevated on pillows. skin very fragile.
[2022-10-25] MEDS: Bupivacaine 0.25% 30 ML Vial (11:40)
[2022-10-25] MEDS: Lidocaine 1% (30 ml sdv) 30 ML Vial (11:40)
[2022-10-25] MEDS: Heparin 10,000 UNITS/10 ML Vial 10000 UNITS (11:45)
--- NOTE | 2022-10-25 11:48 | PCM.PN.HOSP ---
Reason for Visit Reason for Visit: Diagnoses Sepsis, unspecified organism (10/11/22) Hypokalemia (10/11/22) End stage renal disease (10/11/22) Dysphagia, unspecified (10/11/22) Dysphagia, oral phase (10/11/22) Severe sepsis with septic shock (10/11/22) Hyperglycemia, unspecified (10/11/22) Infection and inflammatory reaction due to peritoneal dialysis catheter, initial encounter (10/11/22) Dependence on renal dialysis (10/11/22) Objective Data Objective Data Vital Signs: Vital Signs Temp Pulse Resp BP Pulse Ox O2 Del Method O2 Flow Rate 98.1 F 70 16 124/41 H 93 Room Air 1 10/25/22 09:10 10/25/22 09:10 10/25/22 09:10 10/25/22 09:10 10/25/22 09:10 10/25/22 09:10 10/25/22 07:12 FiO2 2 10/24/22 18:08 Oxygen Flow Rate (L/min) 1 Oxygen Delivery Method Room Air Weight: 216 lb 4.375 oz Body Mass Index (BMI) 42.2 Intake & Output: Intake and Output for Last 24 Hours 10/23/22 10/24/22 10/25/22 23:59 23:59 23:59 Intake Total 690 / 690 2677.5 / 2677.5 210 / 210 Output Total 3600 / 3600 Balance -2910 / -2910 2677.5 / 2677.5 210 / 210 Lab / Micro Data 10/25/22 05:39 10/25/22 05:39 Labs: Laboratory Results - last 24 hr 10/23/22 10:00: Diff Path Review Reviewed 10/24/22 09:53: Blood Type A POSITIVE, Antibody Screen NEGATIVE, Crossmatch See Detail 10/24/22 12:34: POC Glucose 73 L 10/24/22 16:01: POC Glucose 95 10/24/22 22:28: POC Glucose 102 10/25/22 05:39: WBC 12.0 H, RBC 2.42 L, Hgb 7.9 L, Hct 26.2 L, MCV 108.3 H, MCH 32.6 H, MCHC 30.2 L, RDW Std Deviation 72.3 H, RDW Coeff of Alanna 22.0 H, Plt Count 301, MPV 10.4, Immature Gran % (Auto) 1.800 H, Neut % (Auto) 72.8 H, Lymph % (Auto) 15.7 L, [place] % (Auto) 7.6, Eos % (Auto) 1.7, Baso % (Auto) 0.4, Absolute Neuts (auto) 8.7 H, Absolute Lymphs (auto) 1.89, Nucleated RBC % 2.7, Differential Comment SCANNED, Anisocytosis 2+, Microcytosis 1+, Macrocytosis 1+ Sodium 133 L, Potassium 4.9, Chloride 102, Carbon Dioxide 24.0, Anion Gap 7, BUN 31 H, Creatinine 5.75 H, Estim Creat Clear Calc 5.61, Est GFR (MDRD) Af Amer 9 L, Est GFR (MDRD) Non-Af 8 L, BUN/Creatinine Ratio 5.4 L, Glucose 97, Calcium 8.3 L 10/25/22 06:11: POC Glucose 83 10/25/22 10:50: POC Glucose 90 Micro: Microbiology 10/23/22 13:30 Catheter tip - Indwelling Cath Tip Gram Stain - Final 10/23/22 13:30 Catheter tip - Indwelling Cath Tip Wound Culture - Preliminary No growth-Final to follow 10/22/22 10:15 Blood Culture (Wb) - Dialysis/Fistula Blood Culture - Preliminary No growth in 48 hours. 10/21/22 08:32 Blood Culture (Wb) - Anticubital Left Blood Culture - Preliminary No growth in 48 hours. 10/16/22 11:00 Fluid - Peritoneal Gram Stain - Final 10/16/22 11:00 Fluid - Peritoneal Body Fluid Culture - Final Culture exhibits no growth. 10/16/22 11:00 Fluid - Peritoneal Anaerobic Culture - Final No anaerobic bacteria isolated. 10/11/22 13:30 Blood Culture (Wb) - Venous Blood Culture - Final No growth in 5 days. 10/11/22 12:45 Blood Culture (Wb) - Arm Right Blood Culture - Final No growth in 5 days. 10/12/22 12:50 Fluid - Paracentesis (Abd) Gram Stain - Final 10/12/22 12:50 Fluid - Paracentesis (Abd) Body Fluid Culture - Final Coag Negative Staph 10/12/22 12:50 Fluid - Paracentesis (Abd) Anaerobic Culture - Final No anaerobic bacteria isolated. Rhythm Strip Ectopy: - (Majority paced) Physical Exam Narrative Seen and examined. Patient awake and alert today. No acute change. Denies fever or chills. Plan for tunnel dialysis catheter today. Leukocytosis count better. Physical exam General: Awake alert oriented x3 BMI 43.7 kg/m?, morbid obesity. On baseline HEENT: Atraumatic, PERRLA, EOMI, Normocephalic Oral: Oral mucosa moist. No Gingival or Mucosal Lesions/ Ulcerations Neck: Supple, No JVD, Negative Carotid Bruits Lungs: Air entry diminished in bilateral lung bases. No crepitation/rhonchi Cardiovascular: Paced rhythm on monitor. Normal S1, Normal S2, systolic murmur over right second ICS. Abdomen: Peritoneal catheter was removed. Peritoneal tip culture Gram stain shows no breath. Dressing intact and dry. Bowel Sounds Present, Soft, Non Tender, Non-Distended : On hemodialysis through left IJ dialysis catheter. No renal angle tenderness. No suprapubic tenderness. Extremities: No edema, Capillary Refill Less than 3 Seconds Skin: No rashes, No breakdown Musculoskeletal: No Tenderness to Palpation of Joints or Extremities. Chronic weakness of the left lower extremity more than right lower extremity. Stiffness at knee and hip joints. Neurological: Cranial nerves II-XII grossly intact, DTR 2+/4 and Symmetrical, Neuro grossly intact Psych/Mental Status: Flat affect. Const alert, oriented x3 and well nourished; Negative for average body habitus or healthy appearing Constitutional Narrative: Morbidly obese, chronically ill-appearing white female, lying in bed, napping, awakens and is appropriate, nontoxic, appears comfortable, nursing at bedside HEENT head/scalp atraumatic and moist oral mucous membranes Neck Neck Narrative: Dialysis catheter in place with oozing at site Resp normal respiratory effort, no retractions, no use of accessory muscles and clear to auscultation bilaterally Resp Narrative: Intermittent cough after drinking fluids Auscultation: Negative for rales, rhonchi or wheezes Cardio regular rate, regular rhythm, S1 normal heart sound, S2 normal heart sound, no murmurs, no rub, no gallops and no clicks GI normal to inspection, nondistended, normoactive bowel sounds, soft to palpation and non-tender GI Narrative: PD catheter in place currently appears benign Extremity Extremity Narrative: Scattered ecchymosis bilateral lower extremities with 1+ pitting edema, no cyanosis or clubbing Neuro oriented x3, CN's II-XII intact bilaterally, moves all extremities and no focal motor deficits Neuro Narrative: Significant generalized weakness and with no focal deficits Speech: speech normal Psych affect normal Psych Narrative: Very pleasant Assessment & Plan Assessment/Plan (1) ESRD on peritoneal dialysis: (2) Septic shock: (3) Peritonitis associated with peritoneal dialysis: QUALIFIERS: Encounter type: initial encounter Qualified Code(s): T85.71XA - Infection and inflammatory reaction due to peritoneal dialysis catheter, initial encounter PLAN: Plan Patient is an 82-year-old lady with history of end-stage renal disease on peritoneal dialysis presented with syncopal episode found to be hypotensive with elevated lactic acid and leukocytosis an assessment of Septic shock Secondary to peritoneal dialysis catheter associated peritonitis made 1. Septic shock ? Secondary to peritoneal dialysis catheter associated peritonitis with coagulase negative staph. Patient met criteria for septic shock with presence of a suspected infection with SIRS criteria? as well as evidence of endorgan dysfunction with lactic acid level greater than 2. Patient did receive IV fluid in the emergency department without much response decision was subsequently made to start patient on Levophed after central line had been placed with plan for patient to be admitted to the intensive care unit. As part of her management did obtain blood as well as cultures from her peritoneal fluid. Started on broad-spectrum antibiotic therapy with Zosyn and vancomycin ? 10/12/2022; patient remains on pressors ? 10/13/2022 plan is to wean off ? 10/21/2022 patient cultures came back positive for coagulation negative staph. Started on cefazolin. Discussed with the ID. Increased leukocytosis with bands 6% but no obvious signs of worsening infection like fever, hypotension. No abdominal tenderness and I think peritonitis is improved. Repeat blood cultures drawn today. ID thinks she will be good for tunneled dialysis catheter tomorrow AM. Discussed with the surgeon. 10/22: Discussed with the surgeon. Concern for leukocytosis but patient does not have other focal site of symptoms. No significant abdominal wall tenderness. Discussed with ID. Plan is to remove PD catheter tomorrow for potential ongoing nidus of infection. Wait for 2 to 3 days and then tunneled dialysis catheter. Continue IV antibiotics cefazolin for coagulase-negative staph. 10/23: Plan for PD catheter removal. Continue IV cefazolin. Patient getting hemodialysis. No peritoneal signs on abdominal exam. 10/24: Controlled-release catheter was removed. Slight increase in leukocytosis from 13.5 7-13,900. Discussed with the surgeon. No plan for putting down dialysis catheter as WBC count is slightly got elevated. 10/25:WBC count 12,000. Preliminary PD catheter tip Gram stain shows no growth. Blood culture from 10/21 and 10/22 no growth so far. 2. Syncopal episode ? From hypotension from her suspected septic shock as well as possible hypovolemia from her peritoneal dialysis being resuscitated with IV fluid as discussed above 3. End-stage renal disease ? Patient is on peritoneal dialysis consult placed to Dr. Ovalle for dialysis orders. ? 10/12/2022 patient's family to run patient's dialysis ? 10/21/2022 plan is to transition from peritoneal dialysis to hemodialysis with tunneled dialysis catheter placement scheduled for 10/22/202210/22: Blood culture drawn from the left IJ dialysis catheter. Patient had transient diplopia. I think mostly due to midodrine. Midodrine dose increased to 5 mg 3 times daily. 10/23: Blood culture from 10/22 negative for more than 48 hours. 4. Diabetes mellitus type II -patient's oral hypoglycemics held. Placed on long acting insulin, Accu-Cheks a.c. and at bedtime and covered with sliding scale insulin 10/21: Patient had hypoglycemia glucose 41. D50 was given. Repeat glucose 97. Patient started on D5 half NS. Repeat glucose is 206 103. Hold scheduled insulin. 10/22: Glucoses runs in 80s. Accu-Cheks. Hold scheduled insulin including 5. Acute anemia on anemia of chronic disease - Secondary to chronic disorder monitoring H&H and transfuse if patient becomes symptomatic or hemoglobin falls below 7 10/24: Hemoglobin dropped to 7.0. PRBC ordered. 10/25: Repeat hemoglobin 7.9 after 1 unit of PRBC transfusion. 6. Dyslipidemia -Patient is on statin therapy, continued at home dose 7. Essential hypertension ? Patient antihypertensives held given her presentation low blood pressure 8. Hypothyroidism - Patient is on levothyroxine home dose continued 9. GERD ? On PPI 10. Hypokalemia ? Corrected per protocol repeat labs ordered in a.m. for monitoring 11. 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 Nonobstructive coronary artery disease ? Currently stable on recommended medications 13. Depression with anxiety ? Patient is on bupropion 14. Class II obesity with BMI of 39.1 - complicating care, Weight loss advised 15. DVT prophylaxis ? SC heparin 16. Physical deconditioning - Requested for PT OT eval and social problems specialist to assist with discharge planning Microbiology Past 72 Hours 10/23/22 13:30 Catheter tip - Indwelling Cath Tip Gram Stain - Final 10/23/22 13:30 Catheter tip - Indwelling Cath Tip Wound Culture - Preliminary No growth-Final to follow 10/22/22 10:15 Blood Culture (Wb) - Dialysis/Fistula Blood Culture - Preliminary No growth in 48 hours. 10/21/22 08:32 Blood Culture (Wb) - Anticubital Left Blood Culture - Preliminary No growth in 48 hours. Laboratory Results 10/23/22 10:00: Diff Path Review Reviewed 10/24/22 09:53: Blood Type A POSITIVE, Antibody Screen NEGATIVE, Crossmatch See Detail 10/24/22 12:34: POC Glucose 73 L 10/24/22 16:01: POC Glucose 95 10/24/22 22:28: POC Glucose 102 10/25/22 05:39: WBC 12.0 H, RBC 2.42 L, Hgb 7.9 L, Hct 26.2 L, MCV 108.3 H, MCH 32.6 H, MCHC 30.2 L, RDW Std Deviation 72.3 H, RDW Coeff of Alanna 22.0 H, Plt Count 301, MPV 10.4, Immature Gran % (Auto) 1.800 H, Neut % (Auto) 72.8 H, Lymph % (Auto) 15.7 L, [place] % (Auto) 7.6, Eos % (Auto) 1.7, Baso % (Auto) 0.4, Absolute Neuts (auto) 8.7 H, Absolute Lymphs (auto) 1.89, Nucleated RBC % 2.7, Differential Comment SCANNED, Anisocytosis 2+, Microcytosis 1+, Macrocytosis 1+, Sodium 133 L, Potassium 4.9, Chloride 102, Carbon Dioxide 24.0, Anion Gap 7, BUN 31 H, Creatinine 5.75 H, Estim Creat Clear Calc 5.61, Est GFR (MDRD) Af Amer 9 L, Est GFR (MDRD) Non-Af 8 L, BUN/Creatinine Ratio 5.4 L, Glucose 97, Calcium 8.3 L 10/25/22 06:11: POC Glucose 83 10/25/22 10:50: POC Glucose 90 Charges/Coding Visit Charges Inpatient E&M: 27054 Subs Hosp L2
--- NOTE | 2022-10-25 12:05 | PCM.OPRPT ---
Report of Operation Date of Procedure: 10/25/22 Pre-Operative Diagnosis: End-stage renal disease on dialysis Post-Operative Diagnosis: Same Surgery/Procedure Performed:: Placement of right IJ tunneled dialysis catheter, Use of ultrasound, Use of fluoroscopy Surgeon: Anyi Beverly Type of Anesthesia: MAC/Supplemental Anesthesiologist: Trent Ohara Special Medications: Ancef 2 g IV x1 Specimen's removed: None Estimated Blood Loss (mL): <10 cc Description of Procedure: After informed consent was given, the patient was brought to the operating room and placed in the supine position. Appropriate time out protocol was followed. She was then given IV conscious sedation for anesthesia. The patient's right upper chest and neck were then prepped with a surgical skin preparation and sterile surgical drapes were placed. After proper landmarks were ascertained, the skin at the upper right chest area was then infiltrated with 1:1 mixture of 1% lidocaine and 0.5% maricaine. A needle trocar was then inserted into the right internal jugular vein with ultrasound guidance-multiple vessels were viewed with u/s and the right IJ was chosen-- and there was good aspiration of venous blood. A wire was then threaded into the needle trocar and this was visualized under fluoroscopy to ensure that the wire was in the superior vena cava. Once this was done, then the needle trocar was removed. A small incision was made with an 11 blade knife at the wire entrance site. The dilator x2 with the introducer sheath attached was then placed over the wire into the right internal jugular vein via the Seldinger technique and this was visualized under fluoroscopy. Next the introducer and sheath were in proper position as visualized by fluoroscopy. The location of the cuffed was estimated on the skin, an incision was made with a 15 blade scalpel. The 14.5 Fr x19 cm Palindrome dual lumen (Lot [id number] reference [id number]) was tunneled from the chest incision to the right neck incision. The sheath was removed. The catheter was placed through the introducer and was positioned with its tip at the junction of the superior vena cava and the right atrium as visualized under fluoroscopy. The cuff of the catheter was in the subcutaneous tissue. The catheter flushed and musa well with saline. Catheter was also flushed with 1.6 cc of 1-10,000 of heparin. Hemostasis was assured. Silver dressing was placed at the catheter exit site. Catheter was sutured with 3-0 nylon sutures. The neck incision was sutured with interrupted 3-0 Vicryl interrupted sutures x2 and Steri-Strips were placed. A large OpSite was placed over the catheter site and a small OpSite over the neck incision. The patient tolerated the procedure well. Grafts/Implants Used: 14.5 Fr x19 cm Palindrome dual lumen (Lot [id number] reference [id number] Complications none
--- NOTE | 2022-10-25 12:14 | RAD_ITS ---
STUDY: X-RAY CHEST REASON FOR EXAM: Female, 82 years old. Dialysis catheter -- pacu TECHNIQUE: Single AP portable view of the chest. COMPARISON: Comparison is made with prior study dated October 15, 2022. FINDINGS: A right-sided temporary dialysis catheter has been placed with the tip at the junction of the superior vena cava and right atrium. EKG electrodes are seen. Mild degree of increased markings are seen at the lung bases suggestive of a bibasilar atelectasis. There is no demonstrated pleural abnormality. There is borderline cardiomegaly. A left-sided dual-chamber pacemaker is seen. Normal mediastinum and hortensia. Normal visualized pulmonary arteries. There is atherosclerotic calcification of the aortic arch with tortuosity. Normal visualized thoracic spine. There is degenerative osteoarthritis of the bilateral shoulders. There is no demonstrated abnormality of the visualized soft tissue structures of the upper abdomen. RAD/Chest 1 View (Portable) IMPRESSION: The tip of the temporary dialysis catheter is at the junction of the superior vena cava and right atrium. Increased markings at the lung bases slightly prominent on the left side suggestive of possible atelectasis. Electronically Signed: Anselmo Best MD at 12:25 EDT ,
[2022-10-25] MEDS: Midodrine HCl 5 MG Tablet PO ×2 (13:08→16:51)
--- NOTE | 2022-10-25 13:15 | CASEMGMT ---
Per [facility] patient's pre-cert is good until Friday10-26-22. [facility]. Plan: [facility] when medically ready. Carmen CALDERÓN
[2022-10-25] MEDS: PureFlow B 2K Dialysis Soln 1 BAG 6 BAG PF (14:52)
[2022-10-25] MEDS: 0.9% Normal Saline 1,000 ML IV.SOLN. 1000 ML OPERA.SITE (14:52)
[2022-10-25] MEDS: 0.9% Saline Lock 10 ML Syringe IV ×2 (14:53→17:27)
--- NOTE | 2022-10-25 15:04 | CASEMGMT ---
[facility] faxed order indicating it is okay to use dialysis catheter to [facility]. Plan:d/c to [facility] under skilled level of care. Carmen Farias ASSEMBLY ASSOCIATE STEPHANE
--- NOTE | 2022-10-25 15:11 | CASEMGMT ---
[facility] spoke with patient's daughter Lydia and updated her that patient should be going to [facility] tomorrow. VITALY let Lydia know that someone from [facility] will notify her when patient is being discharged. Plan: d/c to [facility] under skilled level of care. Carmen Farias PROPOSAL EDITORSimón CALDERÓN
--- NOTE | 2022-10-25 15:21 | PN_ITS ---
Progress Note went for tunneled dialysis catheter today. could not examine. HD arranged for this afternoon. likely dc to [facility].
--- NOTE | 2022-10-25 15:29 | CASEMGMT ---
[facility] said patient's pre-cert is good through Friday. Carmen Farias MISSILE MECHANIC STEPHANE
[2022-10-25] MEDS: Epoetin Alfa epbx 10,000 UNITS/ML 20000 UNIT IV (16:05)
[2022-10-25] MEDS: Gabapentin 100 MG Capsule PO (16:51)
[2022-10-25 17:10] LABS: Bedside Glucose 71 mg/dL (74-106)
[2022-10-25] MEDS: oxyCODONE 5 MG Tablet 2.5 MG PO (18:40)
[2022-10-25] MEDS: buPROPion 100 MG Tablet PO (20:53)
[2022-10-25] MEDS: Atorvastatin Calcium 80 MG Tablet PO (20:54)
[2022-10-25] MEDS: Montelukast 10 MG Tablet PO (20:54)
[2022-10-25] MEDS: Latanoprost 0.005% 1 Bottle 1 DRP EACH EYE (20:55)
[2022-10-25 22:47] LABS: Bedside Glucose 126 mg/dL (74-106)
[2022-10-26 03:31] VITALS: BP 140/109; PULSE 70; RESP 18; TEMP 36.4; O2SAT 93
[2022-10-26 04:00] VITALS: BMI 43.1
[2022-10-26] MEDS: Levothyroxine 137 MCG Tablet 205.5 MCG PO (05:57)
[2022-10-26] MEDS: Heparin Injection (Vial) 5,000 UNIT/ML VIAL 5000 UNIT SC (05:57)
[2022-10-26] MEDS: Ipratropium 0.5 MG/2.5 ML SOLUTION INHALATION ×2 (07:00→13:14)
[2022-10-26] MEDS: Budesonide Respules 0.5 MG/2 ML AMPUL.NEB. INHALATION (07:00)
[2022-10-26 07:02] VITALS: PULSE 84; RESP 18; O2SAT 92
[2022-10-26 07:18] LABS: Bedside Glucose 134 mg/dL (74-106)
--- NOTE | 2022-10-26 08:43 | PCM.PN.SRG ---
Objective Data Objective Data Vital Signs: Vital Signs Temp Pulse Resp BP Pulse Ox O2 Del Method O2 Flow Rate 97.5 F L 84 18 140/109 H 92 Room Air 6 10/26/22 03:31 10/26/22 07:02 10/26/22 07:02 10/26/22 03:31 10/26/22 07:02 10/26/22 07:02 10/25/22 12:09 FiO2 2 10/24/22 18:08 Oxygen Flow Rate (L/min) 6 Oxygen Delivery Method Room Air Weight: 219 lb 12.814 oz Body Mass Index (BMI) 43.1 Intake & Output: Intake and Output for Last 24 Hours 10/24/22 10/25/22 10/26/22 23:59 23:59 23:59 Intake Total 2677.5 / 2677.5 580 / 580 50 / 50 Output Total 6300 / 6300 3100 / 3100 Balance 2677.5 / 2677.5 -5720 / -5720 -3050 / -3050 Lab / Micro Data 10/25/22 05:39 10/25/22 05:39 Labs: Laboratory Results - last 24 hr 10/25/22 10:50: POC Glucose 90 10/25/22 16:50: POC Glucose 71 L 10/25/22 20:57: POC Glucose 126 H 10/26/22 06:41: POC Glucose 134 H Micro: Microbiology 10/23/22 13:30 Catheter tip - Indwelling Cath Tip Gram Stain - Final 10/23/22 13:30 Catheter tip - Indwelling Cath Tip Wound Culture - Preliminary No growth-Final to follow 10/23/22 13:30 Catheter tip - Indwelling Cath Tip Anaerobic Culture - Preliminary No growth in 48 hours. 10/22/22 10:15 Blood Culture (Wb) - Dialysis/Fistula Blood Culture - Preliminary No growth in 48 hours. 10/21/22 08:32 Blood Culture (Wb) - Anticubital Left Blood Culture - Preliminary No growth in 48 hours. 10/16/22 11:00 Fluid - Peritoneal Gram Stain - Final 10/16/22 11:00 Fluid - Peritoneal Body Fluid Culture - Final Culture exhibits no growth. 10/16/22 11:00 Fluid - Peritoneal Anaerobic Culture - Final No anaerobic bacteria isolated. 10/11/22 13:30 Blood Culture (Wb) - Venous Blood Culture - Final No growth in 5 days. 10/11/22 12:45 Blood Culture (Wb) - Arm Right Blood Culture - Final No growth in 5 days. 10/12/22 12:50 Fluid - Paracentesis (Abd) Gram Stain - Final 10/12/22 12:50 Fluid - Paracentesis (Abd) Body Fluid Culture - Final Coag Negative Staph 10/12/22 12:50 Fluid - Paracentesis (Abd) Anaerobic Culture - Final No anaerobic bacteria isolated. Radiography Diagnostic Testing: Radiology Impression Chest X-Ray 10/25/22 12:14 IMPRESSION: The tip of the temporary dialysis catheter is at the junction of the superior vena cava and right atrium. Increased markings at the lung bases slightly prominent on the left side suggestive of possible atelectasis. Electronically Signed: Anselmo Best MD at 12:25 EDT , Rhythm Strip Ectopy: - (Majority paced) Physical Exam Narrative Right IJ tunneled dialysis catheter in place clean dry and intact Const no apparent distress Resp normal respiratory effort Cardio regular rate GI soft to palpation and non-tender GI Narrative: Right mid abdomen incision of previous exit site of the PD catheter?healing well with [address] Recommend removal in about 10 days from surgery. Assessment & Plan Assessment/Plan (1) Peritonitis associated with peritoneal dialysis: QUALIFIERS: Encounter type: initial encounter Qualified Code(s): T85.71XA - Infection and inflammatory reaction due to peritoneal dialysis catheter, initial encounter PLAN: Status post PD catheter removal (2) ESRD (end stage renal disease) on dialysis: PLAN: Via left IJ temporary dialysis catheter in the hospital PLAN: Plan Tunneled dialysis catheter placed yesterday. Patient tolerated dialysis well. Okay to DC per surgery. PD catheter site has [address] will need removed about 10 days from surgery. Anyi Beverly M.D. Pager: [phone] [facility] [address] [place] [address], [facility], [address] [place] [address] Office: [phone]
[2022-10-26] MEDS: Aspirin E.C. 81 MG Tablet PO (10:04)
[2022-10-26] MEDS: Magnesium Chloride 64 MG Delay Rel.Tablet 128 MG PO (10:04)
[2022-10-26] MEDS: Midodrine HCl 5 MG Tablet PO ×2 (10:04→14:38)
[2022-10-26] MEDS: buPROPion 100 MG Tablet PO (10:04)
[2022-10-26] MEDS: Cyanocobalamin 500 MCG Tablet PO (10:04)
[2022-10-26] MEDS: Pantoprazole Sodium 40 MG Tablet PO (10:04)
[2022-10-26 10:05] VITALS: BP 120/84; PULSE 76; RESP 16; TEMP 36.3; O2SAT 96
[2022-10-26] MEDS: Acetaminophen 325 MG Tablet 650 MG PO ×2 (10:08→14:38)
[2022-10-26] MEDS: Gabapentin 100 MG Capsule PO (10:08)
--- NOTE | 2022-10-26 11:01 | PCM.TXEXTCAR ---
Diet Diet Order/Speech Therapy: 10/25/22 13:06 Diet: Regular - General Food consistency:: Regular Liquid Consistency:: Regular/Thin Type of Dietary Supplement:: Nepro - 4 oz tid w/ meals Is pt able to select menu?: Yes Diet Comments: Distant Sup.,alt. bites/sips, sitting upright 30 min after PO Routine Orders/Code Status Suppository Type: Dulcolax 10mg Suppository Frequency: Daily PRN Code Status: DNRCC-A (No intubation.) Wound(s) right elbow: Wound Type: Skin Tear left elbow: Wound Type: Skin Tear right stanton: Wound Type: Skin Tear Left stanton: Wound Type: Skin Tear LEFT ABDOMEN: Wound Type: Surgical Incision RIGHT CHEST: Wound Type: Surgical Incision RIGHT NECK: Wound Type: Surgical Incision LEFT NECK: Wound Type: Surgical Incision Therapies Weight Bearing: Weight bearing as tolerated Extremity Affected:: Bilateral Lower Physical Therapy: Eval and Treat Occupational Therapy: Eval and Treat Speech Therapy: Eval and Treat Problem/Diagnosis (1) Peritonitis associated with peritoneal dialysis: Status: Acute Code(s): T85.71XA - Infection and inflammatory reaction due to peritoneal dialysis catheter, initial encounter (2) ESRD (end stage renal disease) on dialysis: Status: Acute Code(s): N18.6 - End stage renal disease; Z99.2 - Dependence on renal dialysis Plan Patient is an 82-year-old lady with history of end-stage renal disease on peritoneal dialysis presented with syncopal episode found to be hypotensive with elevated lactic acid and leukocytosis an assessment of Septic shock Secondary to peritoneal dialysis catheter associated peritonitis made 1. Septic shock ? Secondary to peritoneal dialysis catheter associated peritonitis with coagulase negative staph. Patient met criteria for septic shock with presence of a suspected infection with SIRS criteria? as well as evidence of endorgan dysfunction with lactic acid level greater than 2. Patient did receive IV fluid in the emergency department without much response decision was subsequently made to start patient on Levophed after central line had been placed with plan for patient to be admitted to the intensive care unit. As part of her management did obtain blood as well as cultures from her peritoneal fluid. Started on broad-spectrum antibiotic therapy with Zosyn and vancomycin ? 10/12/2022; patient remains on pressors ? 10/13/2022 plan is to wean off ? 10/21/2022 patient cultures came back positive for coagulation negative staph. Started on cefazolin. Discussed with the ID. Increased leukocytosis with bands 6% but no obvious signs of worsening infection like fever, hypotension. No abdominal tenderness and I think peritonitis is improved. Repeat blood cultures drawn today. ID thinks she will be good for tunneled dialysis catheter tomorrow AM. Discussed with the surgeon. 10/22: Discussed with the surgeon. Concern for leukocytosis but patient does not have other focal site of symptoms. No significant abdominal wall tenderness. Discussed with ID. Plan is to remove PD catheter tomorrow for potential ongoing nidus of infection. Wait for 2 to 3 days and then tunneled dialysis catheter. Continue IV antibiotics cefazolin for coagulase-negative staph. 10/23: Plan for PD catheter removal. Continue IV cefazolin. Patient getting hemodialysis. No peritoneal signs on abdominal exam. 10/24: Controlled-release catheter was removed. Slight increase in leukocytosis from 13.5 7-13,900. Discussed with the surgeon. No plan for putting down dialysis catheter as WBC count is slightly got elevated. 10/25:WBC count 12,000. Preliminary PD catheter tip Gram stain shows no growth. Blood culture from 10/21 and 10/22 no growth so far. 2. Syncopal episode ? From hypotension from her suspected septic shock as well as possible hypovolemia from her peritoneal dialysis being resuscitated with IV fluid as discussed above 3. End-stage renal disease ? Patient is on peritoneal dialysis consult placed to Dr. Ovalle for dialysis orders. ? 10/12/2022 patient's family to run patient's dialysis ? 10/21/2022 plan is to transition from peritoneal dialysis to hemodialysis with tunneled dialysis catheter placement scheduled for 10/22/202210/22: Blood culture drawn from the left IJ dialysis catheter. Patient had transient diplopia. I think mostly due to midodrine. Midodrine dose increased to 5 mg 3 times daily. 10/23: Blood culture from 10/22 negative for more than 48 hours. 4. Diabetes mellitus type II -patient's oral hypoglycemics held. Placed on long acting insulin, Accu-Cheks a.c. and at bedtime and covered with sliding scale insulin 10/21: Patient had hypoglycemia glucose 41. D50 was given. Repeat glucose 97. Patient started on D5 half NS. Repeat glucose is 206 103. Hold scheduled insulin. 10/22: Glucoses runs in 80s. Accu-Cheks. Hold scheduled insulin including 5. Acute anemia on anemia of chronic disease - Secondary to chronic disorder monitoring H&H and transfuse if patient becomes symptomatic or hemoglobin falls below 7 10/24: Hemoglobin dropped to 7.0. PRBC ordered. 10/25: Repeat hemoglobin 7.9 after 1 unit of PRBC transfusion. 6. Dyslipidemia -Patient is on statin therapy, continued at home dose 7. Essential hypertension ? Patient antihypertensives held given her presentation low blood pressure 8. Hypothyroidism - Patient is on levothyroxine home dose continued 9. GERD ? On PPI 10. Hypokalemia ? Corrected per protocol repeat labs ordered in a.m. for monitoring 11. 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 Nonobstructive coronary artery disease ? Currently stable on recommended medications 13. Depression with anxiety ? Patient is on bupropion 14. Class II obesity with BMI of 39.1 - complicating care, Weight loss advised 15. DVT prophylaxis ? SC heparin 16. Physical deconditioning - Requested for PT OT eval and aids social worker to assist with discharge planning Microbiology Past 72 Hours 10/23/22 13:30 Catheter tip - Indwelling Cath Tip Gram Stain - Final 10/23/22 13:30 Catheter tip - Indwelling Cath Tip Wound Culture - Preliminary No growth-Final to follow 10/22/22 10:15 Blood Culture (Wb) - Dialysis/Fistula Blood Culture - Preliminary No growth in 48 hours. 10/21/22 08:32 Blood Culture (Wb) - Anticubital Left Blood Culture - Preliminary No growth in 48 hours. Laboratory Results 10/23/22 10:00: Diff Path Review Reviewed 10/24/22 09:53: Blood Type A POSITIVE, Antibody Screen NEGATIVE, Crossmatch See Detail 10/24/22 12:34: POC Glucose 73 L 10/24/22 16:01: POC Glucose 95 10/24/22 22:28: POC Glucose 102 10/25/22 05:39: WBC 12.0 H, RBC 2.42 L, Hgb 7.9 L, Hct 26.2 L, MCV 108.3 H, MCH 32.6 H, MCHC 30.2 L, RDW Std Deviation 72.3 H, RDW Coeff of Alanna 22.0 H, Plt Count 301, MPV 10.4, Immature Gran % (Auto) 1.800 H, Neut % (Auto) 72.8 H, Lymph % (Auto) 15.7 L, [place] % (Auto) 7.6, Eos % (Auto) 1.7, Baso % (Auto) 0.4, Absolute Neuts (auto) 8.7 H, Absolute Lymphs (auto) 1.89, Nucleated RBC % 2.7, Differential Comment SCANNED, Anisocytosis 2+, Microcytosis 1+, Macrocytosis 1+, Sodium 133 L, Potassium 4.9, Chloride 102, Carbon Dioxide 24.0, Anion Gap 7, BUN 31 H, Creatinine 5.75 H, Estim Creat Clear Calc 5.61, Est GFR (MDRD) Af Amer 9 L, Est GFR (MDRD) Non-Af 8 L, BUN/Creatinine Ratio 5.4 L, Glucose 97, Calcium 8.3 L 10/25/22 06:11: POC Glucose 83 10/25/22 10:50: POC Glucose 90 Allergies/Procedures Done in Hospital Allergies metformin [From Glucophage] Allergy (Severe, Verified 10/11/22 11:40) renal failure adhesive Allergy (Intermediate, Verified 10/11/22 11:40) blisters oxycodone Allergy (Intermediate, Verified 10/11/22 11:40) hallucinations tramadol Allergy (Intermediate, Verified 10/11/22 11:40) Vomiting ERIC Inhibitors Adverse Reaction (Intermediate, Verified 10/11/22 11:40) cough buspirone [From BuSpar] Adverse Reaction (Verified 10/11/22 11:40) Hallucinations Type of Care/Length of Stay Estimated LOS: Convalescent Care Less Than 30 days Type of Care Needed: Skilled Rehab Potential: Good Prognosis: Good Additional Orders/Day of Discharge Day of Discharge: 10/26/22 Dietary and Speech Recommendations Dietitian Recommendations/Changes: Continue General Renal diet as tolerated with texture/consistency as per [employer] TECHNICIAN - add carb control restriction if levels >200. Will continue 4 oz PO Nepro TID w/ meals for increased protein if consumed. Discharge Plan Admission Admit Date/Time: 10/11/22 16:07 Primary Reason for Your Visit: Sepsis resolved. Attending Provider: Castro Perla Primary Care Provider: Satnam Saldana Consulting Providers: Perez Goetz; Anyi Beverly; Maurice Longoria; Tono Zuniga; Elliot Diallo; Akshat Sesay; Arnie Lux; Lizbeth Osullivan NP; Elliott Ovalle; Radha Oden Instructions Additional Instructions / Restrictions: About November 01 to --- recommend removing the 2 permanent sutures in patient's right abdomen?simple interrupted. Can be removed at jail or patient can have a follow-up appointment with Dr. Beverly for removal Discharge Orders/Prescriptions Prescriptions: New sennosides-docusate sodium [Stool Softener-Stimulant Laxat] 8.6-50 mg Tablet 2 tab PO BID PRN PRN (Reason: CONSTIPATION) Qty: 0 0RF midodrine 5 mg Tablet 5 mg PO TIDCM Qty: 0 0RF pantoprazole 40 mg Tablet,Delayed Release (Dr/Ec) 40 mg PO DAILY Qty: 0 0RF gabapentin 100 mg Capsule 100 mg PO BIDCM Qty: 0 0RF insulin lispro [Humalog KwikPen Insulin] 100 unit/mL Insulin Pen See Protocol subcut ACHS Qty: 0 0RF Protocol: 3. Sliding Scale Insulin Med Dosing Condition: 150-189 mg/dl = 1 unit Condition: 190-229 mg/dl = 2 units Condition: 230-269 mg/dl = 3 units Condition: 270-309 mg/dl = 4 units Condition: 310-349 mg/dl = 5 units Condition: 350-399 mg/dl = 6 units Condition: 400-449 mg/dl = 7 units Condition: Greater than 449 call physician Protocol Text: - Use for Total Daily Dose of Insulin 37-55 units - Obsese, infected, or steroid patients MEDIUM DOSING ALGORITHIM Continued omeprazole 40 mg capsule,delayed release(DR/EC) 40 mg PO DAILY atorvastatin 80 mg tablet 80 mg PO QHS albuterol sulfate 90 mcg/actuation HFA aerosol inhaler 2 puff INHALATION Q4H PRN (Reason: SHORTNESS OF BREATH ) latanoprost 0.005 % drops 1 drp OPHTHALMIC ONCE levothyroxine 137 mcg tablet 137 mcg PO MOTUWETH Rx Instructions: PT TAKES ONE TABLET (137 MCG) BY MOUTH ONCE DAILY FRIDAY THROUGH FRIDAY AND 1.5 TABLETS (205.5 MCG) FRIDAY THROUGH FRIDAY montelukast 10 mg tablet 10 mg PO QHS Spiriva Respimat 2.5 mcg/actuation mist 2 puff inhalation QAM PRN (Reason: Wheezing) ergocalciferol (vitamin D2) 50,000 unit tablet 50,000 unit PO MO acetaminophen 325 mg tablet 650 mg PO Q4H PRN (Reason: pain/fever) potassium chloride 20 mEq tablet extended release 20 meq PO MOFR bupropion HCl 100 mg tablet 100 mg PO BID ipratropium-albuterol 0.5 mg-3 mg(2.5 mg base)/3 mL solution for nebulization 3 ml INHALATION Q6H PRN (Reason: SHORTNESS OF BREATH ) fluticasone propionate [Flovent HFA] 110 mcg/actuation HFA aerosol inhaler 1 puff INHALATION BID PRN (Reason: Wheezing) insulin glargine [Lantus Solostar U-100 Insulin] 100 unit/mL (3 mL) insulin pen 8 unit subcut DAILY Rx Instructions: PTS DAUGHTER STATES THAT THE PT SELF ADJUSTS NEEDED pioglitazone 30 mg tablet 30 mg PO DAILY calcium acetate(phosphat bind) 667 mg capsule 667 mg PO TID Patient Comments: PTS REGIS STATES THAT THEY JUST RECIEVED THIS RX IN THE MAIL AND HAVE YET TO START IT. mecobalamin (vitamin B12) 500 mcg tablet,chewable 500 mcg PO DAILY calcitriol 0.25 mcg capsule 0.25 mcg PO WEFR Patient Comments: PTS DAUGHTER STATES THAT THIS IS USUALLY TAKEN TWICE A WEEEK ON FRIDAY AND FRIDAY aspirin [Adult Aspirin Regimen] 81 mg tablet,delayed release (DR/EC) 81 mg PO DAILY levothyroxine 137 mcg capsule 205.5 mcg PO SUFRSA Rx Instructions: PT TAKES ONE TABLET (137 MCG) BY MOUTH ONCE DAILY FRIDAY THROUGH FRIDAY AND 1.5 TABLETS (205.5 MCG) FRIDAY THROUGH FRIDAY magnesium oxide 400 mg magnesium tablet 400 mg PO DAILY Changed meclizine 12.5 mg tablet 12.5 mg PO BID PRN (Reason: VERTIGO) 30 Days Qty: 0 0RF Held carvedilol 12.5 mg tablet 12.5 mg PO DAILY Hold Instructions: As patient is on midodrine. Referrals / Follow Up: Satnam Saldana MD [Primary Care Provider] - Disposition Disposition (needs filled in before D/C Order can be placed): [facility] (1) Peritonitis associated with peritoneal dialysis Qualifiers: Encounter type: initial encounter Qualified Code(s): T85.71XA - Infection and inflammatory reaction due to peritoneal dialysis catheter, initial encounter
[2022-10-26] MEDS: Insulin Lispro 100 UNIT/ML INSULN.PEN SC (12:15)
[2022-10-26] MEDS: Insulin Glargine-YFGN 100 UNIT/ML Pen SC (12:15)
[2022-10-26 12:43] LABS: Bedside Glucose 154 mg/dL (74-106)
[2022-10-26 13:15] VITALS: PULSE 70; RESP 16
--- NOTE | 2022-10-26 13:18 | NURSING ---
I spoke with Lydia the pt's daughter to inform her that the pt will be d/c today to [facility]. Lydia asked that the RN call and let her know what time transport will be here to pickup driver the pt.
--- NOTE | 2022-10-26 13:21 | NURSING ---
I spoke with Jaimie at [facility] to inform her that the pt will be d/c today.
--- NOTE | 2022-10-26 14:30 | PCM.DC.SUM ---
Providers Date of Admission: 10/11/22 Date of Discharge: 10/26/22 Primary Care Physician: Dr. Satnam Saldana MD Consultations 10/11/22 18:28 Consult: Information Security Director / Pulmonary Medicine Routine Consulting Provider: Pulmonary Medicine niall [place] Reason for Consult: sepsis EMERGENT Consult: No MD Notified: Yes Date Notified: 10/11/22 Time Notified: 16:28 Method of Notification: Text Consult: Nephrology Routine Consulting Provider: Elliott Ovalle Reason for Consult: dialysis pt EMERGENT Consult: No MD Notified: Yes Date Notified: 10/11/22 Time Notified: 16:28 Method of Notification: Text 10/14/22 07:26 Consult: Infectious Disease Routine Consulting Provider: Maurice Longoria Reason for Consult: SBP EMERGENT Consult: No Notified: No Date Notified: 10/14/22 Time Notified: 07:27 10/14/22 10:26 Consult: Infectious Disease Routine Consulting Provider: Maurice Longoria Reason for Consult: SBP EMERGENT Consult: No Notified: Yes Date Notified: 10/14/22 Time Notified: 10:27 Method of Notification: Answering Service Method of Consult:: In-Person 10/14/22 12:19 Consult: Gastroenterology Routine Consulting Provider: Kaila G[facility] Reason for Consult: Swallow difficulty EMERGENT Consult: No Notified: Yes Date Notified: 10/14/22 Time Notified: 12:19 Method of Notification: Text 10/14/22 13:34 Consult: General Surgery Routine Consulting Provider: Anyi Beverly Reason for Consult: Tunneled HD Cath placement EMERGENT Consult: No Notified: Yes Date Notified: 10/14/22 Time Notified: 13:34 Method of Notification: Physician Initiated Reason For Visit: SYNCOPE Diagnosis Discharge Diagnosis (1) Peritonitis associated with peritoneal dialysis: Status: Acute Code(s): T85.71XA - Infection and inflammatory reaction due to peritoneal dialysis catheter, initial encounter Qualifiers: Encounter type: initial encounter Qualified Code(s): T85.71XA - Infection and inflammatory reaction due to peritoneal dialysis catheter, initial encounter (2) ESRD (end stage renal disease) on dialysis: Status: Acute Code(s): N18.6 - End stage renal disease; Z99.2 - Dependence on renal dialysis Plan Patient is an 82-year-old lady with history of end-stage renal disease on peritoneal dialysis presented with syncopal episode found to be hypotensive with elevated lactic acid and leukocytosis an assessment of Septic shock Secondary to peritoneal dialysis catheter associated peritonitis made 1. Septic shock ? Secondary to peritoneal dialysis catheter associated peritonitis with coagulase negative staph. Patient met criteria for septic shock with presence of a suspected infection with SIRS criteria? as well as evidence of endorgan dysfunction with lactic acid level greater than 2. Patient did receive IV fluid in the emergency department without much response decision was subsequently made to start patient on Levophed after central line had been placed with plan for patient to be admitted to the intensive care unit. As part of her management did obtain blood as well as cultures from her peritoneal fluid. Started on broad-spectrum antibiotic therapy with Zosyn and vancomycin ? 10/12/2022; patient remains on pressors ? 10/13/2022 plan is to wean off ? 10/21/2022 patient cultures came back positive for coagulation negative staph. Started on cefazolin. Discussed with the ID. Increased leukocytosis with bands 6% but no obvious signs of worsening infection like fever, hypotension. No abdominal tenderness and I think peritonitis is improved. Repeat blood cultures drawn today. ID thinks she will be good for tunneled dialysis catheter tomorrow AM. Discussed with the surgeon. 10/22: Discussed with the surgeon. Concern for leukocytosis but patient does not have other focal site of symptoms. No significant abdominal wall tenderness. Discussed with ID. Plan is to remove PD catheter tomorrow for potential ongoing nidus of infection. Wait for 2 to 3 days and then tunneled dialysis catheter. Continue IV antibiotics cefazolin for coagulase-negative staph. 10/23: Plan for PD catheter removal. Continue IV cefazolin. Patient getting hemodialysis. No peritoneal signs on abdominal exam. 10/24: Controlled-release catheter was removed. Slight increase in leukocytosis from 13.5 7-13,900. Discussed with the surgeon. No plan for putting down dialysis catheter as WBC count is slightly got elevated. 10/25:WBC count 12,000. Preliminary PD catheter tip Gram stain shows no growth. Blood culture from 10/21 and 10/22 no growth so far. 10/26: Discussed with ID Dr. Juanjose Stokes. Patient does not need further antibiotic. Patient is discharged to [facility]. Blood cultures x2 from 10/21 negative for 5 days. PD catheter tip culture from 10/23 shows no growth. Indwelling catheter tip culture from left IJ showed no growth in 48 hours. Patient has not had fever. 2. Syncopal episode ? From hypotension from her suspected septic shock as well as possible hypovolemia from her peritoneal dialysis being resuscitated with IV fluid as discussed above No further syncope episode after admission. 3. End-stage renal disease ? Patient is on peritoneal dialysis consult placed to Dr. Ovalle for dialysis orders. ? 10/12/2022 patient's family to run patient's dialysis ? 10/21/2022 plan is to transition from peritoneal dialysis to hemodialysis with tunneled dialysis catheter placement scheduled for 10/22/202210/22: Blood culture drawn from the left IJ dialysis catheter. Patient had transient diplopia. I think mostly due to midodrine. Midodrine dose increased to 5 mg 3 times daily. 10/23: Blood culture from 10/22 negative for more than 48 hours. 4. Diabetes mellitus type II -patient's oral hypoglycemics held. Placed on long acting insulin, Accu-Cheks a.c. and at bedtime and covered with sliding scale insulin 10/21: Patient had hypoglycemia glucose 41. D50 was given. Repeat glucose 97. Patient started on D5 half NS. Repeat glucose is 206 103. Hold scheduled insulin. 10/22: Glucoses runs in 80s. Accu-Cheks. Hold scheduled insulin including 10/26: Glucoses controlled. Next 5. Acute anemia on anemia of chronic disease - Secondary to chronic disorder monitoring H&H and transfuse if patient becomes symptomatic or hemoglobin falls below 7 10/24: Hemoglobin dropped to 7.0. PRBC ordered. 10/25: Repeat hemoglobin 7.9 after 1 unit of PRBC transfusion. 6. Dyslipidemia -Patient is on statin therapy, continued at home dose 7. Essential hypertension ? Patient antihypertensives held given her presentation low blood pressure 8. Hypothyroidism - Patient is on levothyroxine home dose continued 9. GERD ? On PPI 10. Hypokalemia ? Corrected per protocol repeat labs ordered in a.m. for monitoring 11. 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 Nonobstructive coronary artery disease ? Currently stable on recommended medications 13. Depression with anxiety ? Patient is on bupropion 14. Class II obesity with BMI of 39.1 - complicating care, Weight loss advised 15. DVT prophylaxis ? SC heparin 16. Physical deconditioning - Requested for PT OT eval and criminal justice social worker to assist with discharge planning Microbiology Past 72 Hours 10/23/22 13:30 Catheter tip - Indwelling Cath Tip Gram Stain - Final 10/23/22 13:30 Catheter tip - Indwelling Cath Tip Wound Culture - Preliminary No growth-Final to follow 10/22/22 10:15 Blood Culture (Wb) - Dialysis/Fistula Blood Culture - Preliminary No growth in 48 hours. 10/21/22 08:32 Blood Culture (Wb) - Anticubital Left Blood Culture - Preliminary No growth in 48 hours. Laboratory Results 10/23/22 10:00: Diff Path Review Reviewed 10/24/22 09:53: Blood Type A POSITIVE, Antibody Screen NEGATIVE, Crossmatch See Detail 10/24/22 12:34: POC Glucose 73 L 10/24/22 16:01: POC Glucose 95 10/24/22 22:28: POC Glucose 102 10/25/22 05:39: WBC 12.0 H, RBC 2.42 L, Hgb 7.9 L, Hct 26.2 L, MCV 108.3 H, MCH 32.6 H, MCHC 30.2 L, RDW Std Deviation 72.3 H, RDW Coeff of Alanna 22.0 H, Plt Count 301, MPV 10.4, Immature Gran % (Auto) 1.800 H, Neut % (Auto) 72.8 H, Lymph % (Auto) 15.7 L, [place] % (Auto) 7.6, Eos % (Auto) 1.7, Baso % (Auto) 0.4, Absolute Neuts (auto) 8.7 H, Absolute Lymphs (auto) 1.89, Nucleated RBC % 2.7, Differential Comment SCANNED, Anisocytosis 2+, Microcytosis 1+, Macrocytosis 1+, Sodium 133 L, Potassium 4.9, Chloride 102, Carbon Dioxide 24.0, Anion Gap 7, BUN 31 H, Creatinine 5.75 H, Estim Creat Clear Calc 5.61, Est GFR (MDRD) Af Amer 9 L, Est GFR (MDRD) Non-Af 8 L, BUN/Creatinine Ratio 5.4 L, Glucose 97, Calcium 8.3 L 10/25/22 06:11: POC Glucose 83 10/25/22 10:50: POC Glucose 90 Medications at Discharge Home Medications atorvastatin 80 mg tablet 80 mg PO QHS CHOLESTEROL 10/12/18 omeprazole 40 mg capsule,delayed release 40 mg PO DAILY ACID REFLUX 10/12/18 albuterol sulfate 90 mcg/actuation aerosol inhaler 2 puff inhalation Q4H PRN SHORTNESS OF BREATH 10/13/18 montelukast 10 mg tablet 10 mg PO QHS ALLERGIES 10/26/19 acetaminophen 325 mg tablet 650 mg PO Q4H PRN pain/fever 05/10/21 ergocalciferol (vitamin D2) 50,000 unit tablet 50,000 unit PO MO SUPPLEMENT 05/10/21 ipratropium 0.5 mg-albuterol 3 mg (2.5 mg base)/3 mL nebulization soln 3 ml inhalation Q6H PRN SHORTNESS OF BREATH 05/10/21 fluticasone propionate 110 mcg/actuation HFA aerosol inhaler (Flovent HFA) 1 puff inhalation BID PRN Wheezing 02/08/22 latanoprost 0.005 % eye drops 1 drp ophthalmic (eye) ONCE GLAUCOMA 02/08/22 tiotropium bromide 2.5 mcg/actuation mist for inhalation (Spiriva Respimat) 2 puff inhalation QAM PRN Wheezing 02/08/22 bupropion HCl 100 mg tablet 100 mg PO BID DEPRESSION 08/16/22 insulin glargine 100 unit/mL (3 mL) subcutaneous pen (Lantus Solostar U-100 Insulin) 8 unit subcut DAILY BLOOD SUGARS 08/16/22 levothyroxine 137 mcg tablet 137 mcg PO MOTUWETH 08/16/22 potassium chloride 20 mEq tablet,extended release 20 meq PO MOFR SUPPLEMENT 08/16/22 aspirin 81 mg tablet,delayed release (Adult Aspirin Regimen) 81 mg PO DAILY HEART HEALTH 10/11/22 calcitriol 0.25 mcg capsule 0.25 mcg PO WEFR 10/11/22 calcium acetate(phosphat bind) 667 mg capsule 667 mg PO TID 10/11/22 carvedilol 12.5 mg tablet 12.5 mg PO DAILY HEART 10/11/22 levothyroxine 137 mcg capsule 205.5 mcg PO SUFRSA THYROID 10/11/22 magnesium oxide 400 mg PO DAILY SUPPLEMENT 10/11/22 mecobalamin (vitamin B12) 500 mcg chewable tablet 500 mcg PO DAILY SUPPLEMENT 10/11/22 pioglitazone 30 mg tablet 30 mg PO DAILY DIABETES 10/11/22 gabapentin 100 mg capsule 100 mg PO BIDCM #0 caps 10/26/22 insulin lispro 100 unit/mL subcutaneous pen (Humalog KwikPen (U-100) Insulin) See Protocol subcut ACHS #0 mL 10/26/22 meclizine 12.5 mg tablet 12.5 mg PO BID PRN VERTIGO 30 days #0 tabs 10/26/22 midodrine 5 mg tablet 5 mg PO TIDCM #0 tabs 10/26/22 pantoprazole 40 mg tablet,delayed release 40 mg PO DAILY #0 tabs 10/26/22 sennosides 8.6 mg-docusate sodium 50 mg tablet (Stool Softener-Stimulant Laxative) 2 tab PO BID PRN PRN CONSTIPATION #0 tabs 10/26/22 Physical Exam Narrative Seen and examined. Patient awake and alert today. No acute change. Denies fever or chills. Patient returns dialysis catheter on the right IJ. Flow is good. Surgical service and ID okay for discharge. Leukocytosis count better. Physical exam General: Awake alert oriented x3 BMI 43.7 kg/m?, morbid obesity. On baseline HEENT: Atraumatic, PERRLA, EOMI, Normocephalic Oral: Oral mucosa moist. No Gingival or Mucosal Lesions/ Ulcerations Neck: Supple, No JVD, Negative Carotid Bruits. Right IJ tunneled dialysis catheter. Mild expected tenderness. Lungs: Air entry diminished in bilateral lung bases. No crepitation/rhonchi Cardiovascular: Paced rhythm on monitor. Normal S1, Normal S2, systolic murmur over right second ICS. Abdomen: Peritoneal catheter was removed. Peritoneal tip culture Gram stain shows no breath. Dressing intact and dry. Bowel Sounds Present, Soft, Non Tender, Non-Distended : On hemodialysis through left IJ dialysis catheter. No renal angle tenderness. No suprapubic tenderness. Extremities: No edema, Capillary Refill Less than 3 Seconds Skin: No rashes, No breakdown Musculoskeletal: No Tenderness to Palpation of Joints or Extremities. Chronic weakness of the left lower extremity more than right lower extremity. Stiffness at knee and hip joints. Neurological: Cranial nerves II-XII grossly intact, DTR 2+/4 and Symmetrical, Neuro grossly intact Psych/Mental Status: Flat affect. HEENT head/scalp atraumatic and moist oral mucous membranes Neck Neck Narrative: Dialysis catheter in place with oozing at site Resp normal respiratory effort, no retractions, no use of accessory muscles and clear to auscultation bilaterally Resp Narrative: Intermittent cough after drinking fluids Auscultation: Negative for rales, rhonchi or wheezes Cardio regular rate, regular rhythm, S1 normal heart sound, S2 normal heart sound, no murmurs, no rub, no gallops and no clicks GI normal to inspection, nondistended, normoactive bowel sounds, soft to palpation and non-tender GI Narrative: PD catheter in place currently appears benign Extremity Extremity Narrative: Scattered ecchymosis bilateral lower extremities with 1+ pitting edema, no cyanosis or clubbing Neuro oriented x3, CN's II-XII intact bilaterally, moves all extremities and no focal motor deficits Neuro Narrative: Significant generalized weakness and with no focal deficits Speech: speech normal Psych affect normal Psych Narrative: Very pleasant Weight / BMI Weight Weight: 219 lb 12.814 oz Body Mass Index (BMI) 43.1 ABG / Lab / Microbiology Data 10/25/22 05:39 10/25/22 05:39 Laboratory: Laboratory Results - last 24 hr 10/25/22 16:50: POC Glucose 71 L 10/25/22 20:57: POC Glucose 126 H 10/26/22 06:41: POC Glucose 134 H 10/26/22 12:13: POC Glucose 154 H Microbiology: Microbiology 10/26/22 13:08 Nasal Secretion SARS-CoV-2 Antigen (Rapid) - Final 10/21/22 08:32 Blood Culture (Wb) - Anticubital Left Blood Culture - Final No growth in 5 days. 10/23/22 13:30 Catheter tip - Indwelling Cath Tip Gram Stain - Final 10/23/22 13:30 Catheter tip - Indwelling Cath Tip Wound Culture - Preliminary No growth-Final to follow 10/23/22 13:30 Catheter tip - Indwelling Cath Tip Anaerobic Culture - Preliminary No growth in 48 hours. 10/22/22 10:15 Blood Culture (Wb) - Dialysis/Fistula Blood Culture - Preliminary No growth in 48 hours. 10/16/22 11:00 Fluid - Peritoneal Gram Stain - Final 10/16/22 11:00 Fluid - Peritoneal Body Fluid Culture - Final Culture exhibits no growth. 10/16/22 11:00 Fluid - Peritoneal Anaerobic Culture - Final No anaerobic bacteria isolated. 10/11/22 13:30 Blood Culture (Wb) - Venous Blood Culture - Final No growth in 5 days. 10/11/22 12:45 Blood Culture (Wb) - Arm Right Blood Culture - Final No growth in 5 days. 10/12/22 12:50 Fluid - Paracentesis (Abd) Gram Stain - Final 10/12/22 12:50 Fluid - Paracentesis (Abd) Body Fluid Culture - Final Coag Negative Staph 10/12/22 12:50 Fluid - Paracentesis (Abd) Anaerobic Culture - Final No anaerobic bacteria isolated. Meaningful Use Info Meaningful Use Diagnoses (Choose all that apply): None applicable Discharge Plan Admission Admit Date/Time: 10/11/22 16:07 Primary Reason for Your Visit: Sepsis resolved. Attending Provider: Castro Perla Primary Care Provider: Satnam Saldana Consulting Providers: Perez Goetz; Anyi Beverly; Maurice Longoria; Tono Zuniga; Elliot Diallo; Akshat Sesay; Arnie Lux; Lizbeth Osullivan NP; Elliott Ovalle; Radha Oden Instructions Additional Instructions / Restrictions: About November 01 to --- recommend removing the 2 permanent sutures in patient's right abdomen?simple interrupted. Can be removed at assisted or patient can have a follow-up appointment with Dr. Beverly for removal Discharge Orders/Prescriptions Prescriptions: New sennosides-docusate sodium [Stool Softener-Stimulant Laxat] 8.6-50 mg Tablet 2 tab PO BID PRN PRN (Reason: CONSTIPATION) Qty: 0 0RF midodrine 5 mg Tablet 5 mg PO TIDCM Qty: 0 0RF pantoprazole 40 mg Tablet,Delayed Release (Dr/Ec) 40 mg PO DAILY Qty: 0 0RF gabapentin 100 mg Capsule 100 mg PO BIDCM Qty: 0 0RF insulin lispro [Humalog KwikPen Insulin] 100 unit/mL Insulin Pen See Protocol subcut ACHS Qty: 0 0RF Protocol: 3. Sliding Scale Insulin Med Dosing Condition: 150-189 mg/dl = 1 unit Condition: 190-229 mg/dl = 2 units Condition: 230-269 mg/dl = 3 units Condition: 270-309 mg/dl = 4 units Condition: 310-349 mg/dl = 5 units Condition: 350-399 mg/dl = 6 units Condition: 400-449 mg/dl = 7 units Condition: Greater than 449 call physician Protocol Text: - Use for Total Daily Dose of Insulin 37-55 units - Obsese, infected, or steroid patients MEDIUM DOSING ALGORITHIM Continued omeprazole 40 mg capsule,delayed release(DR/EC) 40 mg PO DAILY atorvastatin 80 mg tablet 80 mg PO QHS albuterol sulfate 90 mcg/actuation HFA aerosol inhaler 2 puff INHALATION Q4H PRN (Reason: SHORTNESS OF BREATH ) latanoprost 0.005 % drops 1 drp OPHTHALMIC ONCE levothyroxine 137 mcg tablet 137 mcg PO MOTUWETH Rx Instructions: PT TAKES ONE TABLET (137 MCG) BY MOUTH ONCE DAILY FRIDAY THROUGH FRIDAY AND 1.5 TABLETS (205.5 MCG) FRIDAY THROUGH FRIDAY montelukast 10 mg tablet 10 mg PO QHS Spiriva Respimat 2.5 mcg/actuation mist 2 puff inhalation QAM PRN (Reason: Wheezing) ergocalciferol (vitamin D2) 50,000 unit tablet 50,000 unit PO MO acetaminophen 325 mg tablet 650 mg PO Q4H PRN (Reason: pain/fever) potassium chloride 20 mEq tablet extended release 20 meq PO MOFR bupropion HCl 100 mg tablet 100 mg PO BID ipratropium-albuterol 0.5 mg-3 mg(2.5 mg base)/3 mL solution for nebulization 3 ml INHALATION Q6H PRN (Reason: SHORTNESS OF BREATH ) fluticasone propionate [Flovent HFA] 110 mcg/actuation HFA aerosol inhaler 1 puff INHALATION BID PRN (Reason: Wheezing) insulin glargine [Lantus Solostar U-100 Insulin] 100 unit/mL (3 mL) insulin pen 8 unit subcut DAILY Rx Instructions: PTS DAUGHTER STATES THAT THE PT SELF ADJUSTS NEEDED pioglitazone 30 mg tablet 30 mg PO DAILY calcium acetate(phosphat bind) 667 mg capsule 667 mg PO TID Patient Comments: PTS TAHIRTER STATES THAT THEY JUST RECIEVED THIS RX IN THE MAIL AND HAVE YET TO START IT. mecobalamin (vitamin B12) 500 mcg tablet,chewable 500 mcg PO DAILY calcitriol 0.25 mcg capsule 0.25 mcg PO WEFR Patient Comments: PTS DAUGHTER STATES THAT THIS IS USUALLY TAKEN TWICE A WEEEK ON FRIDAY AND FRIDAY aspirin [Adult Aspirin Regimen] 81 mg tablet,delayed release (DR/EC) 81 mg PO DAILY levothyroxine 137 mcg capsule 205.5 mcg PO SUFRSA Rx Instructions: PT TAKES ONE TABLET (137 MCG) BY MOUTH ONCE DAILY FRIDAY THROUGH FRIDAY AND 1.5 TABLETS (205.5 MCG) FRIDAY THROUGH FRIDAY magnesium oxide 400 mg magnesium tablet 400 mg PO DAILY Changed meclizine 12.5 mg tablet 12.5 mg PO BID PRN (Reason: VERTIGO) 30 Days Qty: 0 0RF Held carvedilol 12.5 mg tablet 12.5 mg PO DAILY Hold Instructions: As patient is on midodrine. Referrals / Follow Up: Satnam Saldana MD [Primary Care Provider] - Disposition Disposition (needs filled in before D/C Order can be placed): [facility] Charges/Coding Visit Charges Inpatient E&M: 15826 Disch Hosp >30min
[2022-10-26 14:40] VITALS: BP 122/49; PULSE 70; RESP 16; TEMP 36.8; O2SAT 95
--- NOTE | 2022-10-26 15:04 | NURSING ---
x2 attempts made to call report to [facility] TCC unit @ [phone]. Message left requesting call back.
[2022-12-11 06:21] LABS: Bedside Glucose 150 mg/dL (74-106)
== END 2022-10-26 15:18 | disposition skilled nursing facility (03) | DRG 907 ==
LOC: ED 16:26 → ICU 10-12 06:37 → PCU 10-20 07:25 → ICU 10-21 12:16 → PCU 10-21 12:16
PROVIDERS: Internal Medicine; Internal Medicine Critical Care Medicine; Nurse Practitioner Adult Health; Surgery; Admitting Provider Internal Medicine; Emergency Provider Emergency Medicine; PCP Family Medicine; Visit Provider Internal Medicine
PROC: 0WPG03Z Removal of Infusion Device from Peritoneal Cavity, Open Approach (ICD-10-PCS; CPT 49320; principal; 2022-10-23 12:15)
PROC: 02HV33Z Insertion of Infusion Device into Superior Vena Cava, Percutaneous Approach (ICD-10-PCS; principal; 2022-10-25 11:45)
DX: T85.71XA Infection and inflammatory reaction due to peritoneal dialysis catheter, initial encounter (principal); A41.1 Sepsis due to other specified staphylococcus; R65.21 Severe sepsis with septic shock; K65.0 Generalized (acute) peritonitis; N18.6 End stage renal disease; I13.2 Hypertensive heart and chronic kidney disease with heart failure and with stage 5 chronic kidney disease, or end stage renal disease; I50.32 Chronic diastolic (congestive) heart failure; Z68.41 Body mass index [BMI] 40.0-44.9, adult; R18.8 Other ascites; D63.1 Anemia in chronic kidney disease; R13.11 Dysphagia, oral phase; E66.01 Morbid (severe) obesity due to excess calories; E11.51 Type 2 diabetes mellitus with diabetic peripheral angiopathy without gangrene; E11.22 Type 2 diabetes mellitus with diabetic chronic kidney disease; E11.65 Type 2 diabetes mellitus with hyperglycemia; E11.39 Type 2 diabetes mellitus with other diabetic ophthalmic complication; Z79.4 Long term (current) use of insulin; Z49.02 Encounter for fitting and adjustment of peritoneal dialysis catheter; K21.9 Gastro-esophageal reflux disease without esophagitis; E87.6 Hypokalemia; I25.10 Atherosclerotic heart disease of native coronary artery without angina pectoris; E86.1 Hypovolemia; E03.9 Hypothyroidism, unspecified; E78.5 Hyperlipidemia, unspecified; F41.8 Other specified anxiety disorders; K44.9 Diaphragmatic hernia without obstruction or gangrene; K42.9 Umbilical hernia without obstruction or gangrene; H53.2 Diplopia; Z82.5 Family history of asthma and other chronic lower respiratory diseases; Z82.3 Family history of stroke; Z95.810 Presence of automatic (implantable) cardiac defibrillator; Z68.39 Body mass index [BMI] 39.0-39.9, adult; Z79.82 Long term (current) use of aspirin; Z66 Do not resuscitate; Z79.84 Long term (current) use of oral hypoglycemic drugs; Z79.01 Long term (current) use of anticoagulants; H40.9 Unspecified glaucoma; R13.10 Dysphagia, unspecified; Z79.2 Long term (current) use of antibiotics
CPT/HCPCS: 36415; 70450; 71045; 71260; 73560; 74177; 74230; 77001; 80048; 80053; 80069; 80202; 82803; 82945; 82962; 83605; 83615; 83735; 84100; 84157; 84439; 84443; 84484; 85014; 85018; 85025; 85610; 86644; 86850; 86900; 86901; 86920; 86922; 87040; 87070; 87075; 87077; 87186; 87205; 87340; 87426; 87641; 89050; 90937; 92526; 92610; 92611; 93005; 94640; 94668; 94762; 97110; 97163; 97166; 97530; 97535; 97802; 97803; 99252; 99285; J7030; J7040; J7050; P9016; Q9967; A4216; C1750; C1751; C1752; G0257; G0463; J1940; J2405; J3490; J7799; Q5106

== ENCOUNTER 2023-01-10 15:47 | Inpatient (IN) | payer MEDICARE, SELFPAY ==
[2023-01-10] VITALS (10 sets, daily range): BP systolic 133–162; BP diastolic 40–76; PULSE 91–99; RESP 14–27; TEMP 36.3–37.6; O2SAT 92–100; BMI 39.4; BMI 38.7
--- NOTE | 2023-01-10 16:15 | EKG12_ITS ---
Test Reason : gi bleed Blood Pressure : / mmHG Vent. Rate : 095 BPM Atrial Rate : 000 BPM P-R Int : 000 ms QRS Dur : 080 ms QT Int : 392 ms P-R-T Axes : 000 046 156 degrees QTc Int : 492 ms SINUS TACHYCARDIA Low voltage QRS Cannot rule out Anterior infarct , age undetermined ST & T wave abnormality, consider inferolateral ischemia Abnormal ECG Confirmed by ANTONIETA TAYLOR, SHANA ([id number]), associate entertainment editor LOIS REYNOLDS ([id number]) on 01/14/2023 7:41:27 AM Referred By: Confirmed By:SHANA FUNG MD
--- NOTE | 2023-01-10 16:40 | RAD_ITS ---
INDICATION: Rales right greater than left EXAMINATION/TECHNIQUE: X-RAY - XR Chest 2 Views COMPARISON: FINDINGS: LINES/DEVICES: Right venous catheter with tip at the mid SVC level. There is a left-sided pacemaker in place. LUNGS: No consolidation, edema or effusion. No pneumothorax. MEDIASTINUM AND CARDIOVASCULAR STRUCTURES: Cardiac silhouette not enlarged. Calcified aortic arch. Central airways and mediastinal contour are unremarkable. BONES AND SOFT TISSUES: Unremarkable. RAD/Chest PA and Lateral IMPRESSION: No radiographic evidence of acute cardiopulmonary disease. Electronically Signed: Isaias Jade DO at 17:03 EDT Reading Location ID and State: [facility] / [place] Tel [phone], Service support ,
[2023-01-10 16:56] LABS: Absolute Lymphocyte Count 1.17 X10^3/uL (0.83-4.51); Absolute Neutrophil Count 17.8 X10^3/uL (2.0-7.7); Basophil# 0.04 X10^3/uL; Basophil% 0.2 % (0-1); Eosinophil# 0.02 X10^3/uL; Eosinophils% 0.1 % (0-5); Hematocrit 41.3 % (37-47); Hemoglobin 13.1 g/dL (12.0-15.0); Lymphocyte # 1.17 X10^3/ul (0.83-4.51); Lymphocyte % 5.7 % (19-41); Mean Corp Hgb Conc 31.7 g/dL (32-36); Mean Corpuscular Hgb 31.6 pg (27.0-32.0); Mean Corpuscular Volume 99.8 fL (81-99); Mean Platelet Vol. 9.9 fl (6.2-12.0); Monocyte# 1.13 X10^3/uL; Monocyte% 5.5 % (0-10); NRBC Flagged by Analyzer 0 % (0-5); Neutrophil # 17.79 X10^3/uL (2.7-7.7); Neutrophil % 87.3 % (47-70); Platelet Count 373 K/mm3 (150-450); RBC Distribution Width CV 17.4 % (11.6-14.6); Red Blood Count 4.14 M/mm3 (4.2-5.4); White Blood Count 20.4 K/mm3 (4.4-11.0)
[2023-01-10] MEDS: Pantoprazole Sodium 80 MG in 0.9% Normal Saline (50mL Bag) 15 ML 420 MG IV BOLUS (16:57)
--- NOTE | 2023-01-10 17:07 | ED.VIS.GI ---
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) Abdominal Pain/Flank Pain Onset: Today and Hours Context: Sudden Onset Timing: Continuous Quality: - (Epigastric discomfort) Location: Epigastric Current Severity: Mild Maximum Severity: Mild Worsened by: Nothing Relieved by: Nothing Nausea/Vomiting/Emesis GI Symptom: Positive for Nausea and Vomiting Onset: Today Quality: Positive for Coffee ground Severity: Moderate Diarrhea/Melena/Hematochezia GI Symptom: Negative for Diarrhea, Melena or Hematochezia Associated Symptoms Associated Symptoms: Positive for - (End-stage renal disease on hemodialysis) LMP: Postmenopausal Narrative Narrative: Is an 82-year-old woman who presents from dialysis because of hematemesis and coffee-ground emesis. She was recently admitted for upper GI bleed. She was seen by Dr. Montgomery at that time. Per family etiology of the bleed was undetermined. Patient did receive 8000 units of heparin at 12 noon. She does report coughing after vomiting. She denies fever, chills night sweats. She does report mild shortness of breath. She denies history of asthma. She denies chest discomfort. She has mild epigastric discomfort. She denies being bloated or distended. Last bowel movement was 48 hours ago. She is not on anticoagulant Patient denies bruising easily. She has not noted a rash or any lesions. She denies headache, visual, ocular auditory symptoms. She is slightly somnolent compared to normal per family. Prior similar symptoms: Yes Recent Illness/Hospitalization: Yes PFSH PFS Medical History Acute respiratory failure Albuminuria Asthma Bilateral carotid artery stenosis Chronic anemia Chronic diastolic CHF (congestive heart failure) Chronic kidney disease Esophageal dysphagia ESRD on peritoneal dialysis Essential hypertension GERD (gastroesophageal reflux disease) Glaucoma Hyperlipidemia Hyperparathyroidism, secondary renal Hypothyroidism Leg wound, right Lichenification and lichen simplex chronicus Major depressive disorder Methicillin resistant Staphylococcus epidermidis infection Neurodermatitis Non-proliferative diabetic retinopathy, both eyes Nonobstructive atherosclerosis of coronary artery Normocytic anemia Nummular eczema Obesity Open wound of right forearm 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) Recurrent syncope (03/28/21) Severe protein-calorie malnutrition Skin tear of right forearm without complication Skin tear of right lower leg without complication Stage 3 chronic kidney disease Stenosis of left carotid artery Torsades de pointes (03/28/21) Transient visual loss, right eye (11/2020) Type II diabetes mellitus Ventricular tachycardia Vitamin B 12 deficiency Home Medications atorvastatin 80 mg tablet 80 mg PO QHS CHOLESTEROL 10/12/18 [History Last Taken 10/10/22] omeprazole 40 mg capsule,delayed release 40 mg PO DAILY ACID REFLUX 10/12/18 [History Last Taken 10/10/22] albuterol sulfate 90 mcg/actuation aerosol inhaler 2 puff inhalation Q4H PRN SHORTNESS OF BREATH 10/13/18 [History Last Taken Unknown] montelukast 10 mg tablet 10 mg PO QHS ALLERGIES 10/26/19 [History Last Taken 10/10/22] acetaminophen 325 mg tablet 650 mg PO Q4H PRN pain/fever 05/10/21 [History Last Taken Unknown] ergocalciferol (vitamin D2) 50,000 unit tablet 50,000 unit PO MO SUPPLEMENT 05/10/21 [History Last Taken 10/07/22] ipratropium 0.5 mg-albuterol 3 mg (2.5 mg base)/3 mL nebulization soln 3 ml inhalation Q6H PRN SHORTNESS OF BREATH 05/10/21 [History Last Taken Unknown] fluticasone propionate 110 mcg/actuation HFA aerosol inhaler (Flovent HFA) 1 puff inhalation BID PRN Wheezing 02/08/22 [History Last Taken Unknown] latanoprost 0.005 % eye drops 1 drp ophthalmic (eye) ONCE GLAUCOMA 02/08/22 [History Last Taken Unknown] tiotropium bromide 2.5 mcg/actuation mist for inhalation (Spiriva Respimat) 2 puff inhalation QAM PRN Wheezing 02/08/22 [History Last Taken Unknown] bupropion HCl 100 mg tablet 100 mg PO BID DEPRESSION 08/16/22 [History Last Taken 10/10/22] insulin glargine 100 unit/mL (3 mL) subcutaneous pen (Lantus Solostar U-100 Insulin) 8 unit subcut DAILY BLOOD SUGARS 08/16/22 [History Last Taken 10/10/22] levothyroxine 137 mcg tablet 137 mcg PO MOTUWETH 08/16/22 [History Last Taken 10/10/22] aspirin 81 mg tablet,delayed release (Adult Aspirin Regimen) 81 mg PO DAILY HEART HEALTH 10/11/22 [History Last Taken 10/10/22] calcitriol 0.25 mcg capsule 0.25 mcg PO WEFR 10/11/22 [History Last Taken 10/09/22] calcium acetate(phosphat bind) 667 mg capsule 667 mg PO TID 10/11/22 [History Last Taken Unknown] levothyroxine 137 mcg capsule 205.5 mcg PO SUFRSA THYROID 10/11/22 [History Last Taken 10/06/22] magnesium oxide 400 mg PO DAILY SUPPLEMENT 10/11/22 [History Last Taken 10/10/22] mecobalamin (vitamin B12) 500 mcg chewable tablet 500 mcg PO DAILY SUPPLEMENT 10/11/22 [History Last Taken 10/10/22] pioglitazone 30 mg tablet 30 mg PO DAILY DIABETES 10/11/22 [History Last Taken 10/10/22] meclizine 12.5 mg tablet 12.5 mg PO BID PRN VERTIGO 30 days #0 tabs 10/26/22 [Rx Last Taken 10/10/22] midodrine 5 mg tablet 5 mg PO TIDCM #0 tabs 10/26/22 [Rx Last Taken Unknown] sennosides 8.6 mg-docusate sodium 50 mg tablet (Stool Softener-Stimulant Laxative) 2 tab PO BID PRN PRN CONSTIPATION #0 tabs 10/26/22 [Rx Last Taken Unknown] glucagon 1 mg/mL solution for injection 1 mg subcut Q20M PRN hypoglycemia 11/06/22 [History Last Taken Unknown] Allergy/AdvReac Type Severity Reaction Status Date / Time metformin [From Glucophage] Allergy Severe renal Verified 01/10/23 15:49 failure adhesive Allergy Intermediate blisters Verified 01/10/23 15:49 oxycodone Allergy Intermediate hallucinati Verified 01/10/23 15:49 ons tramadol Allergy Intermediate Vomiting Verified 01/10/23 15:49 metoclopramide [From Reglan] Allergy Mild Nausea Verified 01/10/23 16:43 ERIC Inhibitors AdvReac Intermediate cough Verified 01/10/23 15:49 buspirone [From BuSpar] AdvReac Hallucinati Verified 01/10/23 15:49 ons Family History Father Heart disease Hypertension Suicide Mother Hypertension CVA (cerebral vascular accident) COPD (chronic obstructive pulmonary disease) CAD (coronary artery disease) Surgical History History of bilateral knee replacement (1989) History of breast biopsy History of implantable cardiac defibrillator (ICD) (04/02/21) History of left heart catheterization (03/28/21) History of open reduction and internal fixation (ORIF) procedure History of right cataract extraction (10/03/11) History of temporary cardiac pacemaker treatment (03/28/21) History of tonsillectomy Social History household members: none Smoking Status: Never smoker alcohol intake: never substance use type: does not use caffeine: Yes Type: coffee Number of servings: 2 ROS ROS ED Constitutional Constitutional ED: Denies chills, fever(s), subjective, sweats or weight loss ENT ENT ED: Denies ear pain, rhinorrhea or sore throat Cardiovascular Cardiovascular: Denies chest pain, orthopnea, palpitations or paroxysmal nocturnal dyspnea Respiratory/Chest Respiratory/Chest: Reports cough and dyspnea; Denies dyspnea on exertion, orthopnea, paroxysmal nocturnal dyspnea or sputum Gastrointestinal Gastrointestinal: Reports abdominal pain, nausea, vomiting and other Details: Emesis/coffee-ground emesis ; Denies constipation, diarrhea or melena Genitourinary Genitourinary ED: Reports other Details: End-stage renal disease on hemodialysis Musculoskeletal Musculoskeletal: Denies arthralgias, back pain, myalgias or neck pain Integumentary Denies abscess or rash Neurologic Neurologic: Denies headache(s) or paresthesias Psychiatric Psychiatric: Denies anxiety or depression Endocrine Endocrinology: Denies polydipsia, polyphagia or polyuria Hematologic/Lymphatic Hematologic/Lymphatic: Denies easy bleeding or easy bruising EXAM Physical Exam Const Vital Signs: 01/10/23 15:49 01/10/23 15:52 01/10/23 16:13 Temperature 97.3 F L 97.3 F L Temperature Source Temporal Temporal Pulse Rate 99 99 Respiratory Rate 18 18 Respiratory Pattern Tachypnea Blood Pressure 133/76 H 133/76 H Blood Pressure Mean 95 95 Pulse Ox Oxygen Delivery Method Oxygen Flow Rate (L/min) 01/10/23 16:33 01/10/23 17:00 01/10/23 17:10 Temperature 99.6 F H Temperature Source Oral Pulse Rate 95 95 95 Respiratory Rate 22 H 14 18 Respiratory Pattern Blood Pressure 145/72 H 161/49 H 162/67 H Blood Pressure Mean 96 86 98 Pulse Ox 94 100 100 Oxygen Delivery Method Nasal Cannula Nasal Cannula Nasal Cannula Oxygen Flow Rate (L/min) 2 2 2 01/10/23 17:21 Temperature Temperature Source Pulse Rate 96 Respiratory Rate 18 Respiratory Pattern Normal Blood Pressure Blood Pressure Mean Pulse Ox Oxygen Delivery Method Oxygen Flow Rate (L/min) Positive well nourished, well developed and obese Constitutional Narrative: Patient is slightly somnolent General Appearance ED: well developed and NAD; Negative for pallor Nutritional Appearance: obese HEENT Reports TM's clear and moist mucous membranes HEENT Narrative: Posterior pharynx is normal. normocephalic and atraumatic Tympanic Membrane ED: Yes TM's clear Eyes PERRL and EOMs intact bilaterally General Eye ED: Negative for pale conjunctiva or scleral icterus Neck no lymphadenopathy, supple and no JVD Resp normal respiratory effort and No clear to auscultation bilaterally Auscultation: rales bilateral 1/[address] up and wheezes expiratory wheezes, scattered wheezes and throughout Cardio regular rate, regular rhythm, S1 normal heart sound, S2 normal heart sound and no murmurs GI non-tender, non-distended and no masses Auscultation: hypoactive bowel sounds Palpation: soft Back/Spine no CVA tenderness Extremity full ROM General Extremety ED: Yes edema; Negative for tenderness General Extremity: edema Neuro CN's II-XII intact bilaterally and moves all extremities Sensorium / Orientation: alert Psych mental status grossly normal and thought process normal Skin no wounds General Skin Exam: Negative for jaundice or pallor MDM MDM MDM Narrative Medical decision making narrative: Patient with upper GI bleed. Since she received heparin at dialysis and they were contacted. We were informed she received 8000 units at noon. Since this was 4-1/2 hours prior to presentation she was not reversed with protamine. She did receive IV Protonix. Work-up was initiated. Concern patient may have aspirated since she has abnormal oscillatory findings. CBC was obtained to assess white count differential. Also to assess H&H to establish a baseline. Patient was typed and screened for blood for her upper GI bleed. Dr. Burns the hospitalist will be notified. He requested contacting Dr. Montgomery. History & Record Review Discussion w/independent historian: Patient and Family Additional record(s) reviewed:: Prior inpatient record, Prior ED visit and Prior labs Lab Data Attestation: I reviewed the patient's lab results. Lab results narrative: Is elevated 20.4 thousand with shift. There is no bandemia. This could be due to stress, possible aspiration pneumonitis. Blood cultures were ordered. Labs: Laboratory Results - last 24 hr 01/10/23 01/10/23 16:10 16:57 WBC 20.4 H RBC 4.14 L Hgb 13.1 Hct 41.3 MCV 99.8 H MCH 31.6 MCHC 31.7 L RDW Std Deviation 63.0 H RDW Coeff of Alanna 17.4 H Plt Count 373 MPV 9.9 Immature Gran % (Auto) 1.200 H Neut % (Auto) 87.3 H Lymph % (Auto) 5.7 L Davison % (Auto) 5.5 Eos % (Auto) 0.1 Baso % (Auto) 0.2 Absolute Neuts (auto) 17.8 H Absolute Lymphs (auto) 1.17 Nucleated RBC % 0 Sodium 133 L Potassium 4.1 Chloride 96 L Carbon Dioxide 29.0 Anion Gap 8 BUN 11 Creatinine 2.81 H Estim Creat Clear Calc 12.05 Est GFR (MDRD) Af Amer 21 L Est GFR (MDRD) Non-Af 17 L BUN/Creatinine Ratio 3.9 L Glucose 138 H Lactic Acid 2.0 Calcium 8.8 Total Bilirubin 0.40 AST 36 ALT 17 Alkaline Phosphatase 118 H Total Protein 7.4 Albumin 1.7 L Globulin 5.7 H Albumin/Globulin Ratio 0.3 L POC Glucose 120 H Blood Type A POSITIVE Antibody Screen NEGATIVE Radiography Chest X-Ray - ED: Read by ED Physician (X-ray was independently reviewed interpreted by me at 1655. There is borderline cardiomegaly. Cardiac silhouette is normal. Lung parenchyma is normal. There is no effusion. Perihilar regions normal. Osseous structures are unremarkable.) Diagnostic Testing: Clinical Impression(s) from Imaging Studies Chest X-Ray 01/10/23 16:40 IMPRESSION: No radiographic evidence of acute cardiopulmonary disease. Electronically Signed: Isaias Jade DO at 17:03 EDT Reading Location ID and State: [facility] / [place] Tel [phone], Service support , EKG Initial EKG: Attestation: I personally reviewed and interpreted this EKG as follows: Interpretation: Sinus Rhythm (Is 95. There is evidence of low voltage. There is decreased anterior force. There is nonspecific changes which is due to artifact. Cures duration 80 ms. QT duration 392 ms. [place] is normal. MO interval is normal as well.) Management Discussion w/another healthcare provider: Housekeeper Head (Her friend. Patient was made NPO. She has not had a anything to eat or drink since this morning. She had a couple coffee. He is calling anesthesia to perform EGD this evening.) Treatment and Re-Evaluation :: Since there is no evidence of heart failure on x-ray she was treated with albuterol for her wheezing. Patient may have aspirated. Since there is no infiltrate noted there is controversy whether antibiotic should or should not be given. Will discuss with hospitalist. Since patient was hypotensive she did receive a fluid bolus. Critical Care Time Critical Care Time: Yes Critical care time (excluding procedures): 30-74 minutes (31), Including time spent: (, Physical, documentation, interpretation laboratory results, review of prior records and specifically Dr. Montgomery's note from September, discussion with hospitalist and consult), Discussing w/Patient &/or Family/Apprentice/Lineman, Discussing w/Consultants and Arranging Admission or Transfer Discharge Plan Triage Chief Complaint: GI Bleed ED Provider: Angel Dc Dx/Rx/DC Orders Clinical Impression: Acute upper gastrointestinal bleeding, Chronic diastolic CHF (congestive heart failure), Obesity, Nonobstructive atherosclerosis of coronary artery, Type II diabetes mellitus, Leukocytosis, Acute bronchospasm, ESRD on hemodialysis, Acidosis, lactic Prescriptions: No Action omeprazole 40 mg capsule,delayed release(DR/EC) 40 mg PO DAILY atorvastatin 80 mg tablet 80 mg PO QHS albuterol sulfate 90 mcg/actuation HFA aerosol inhaler 2 puff INHALATION Q4H PRN (Reason: SHORTNESS OF BREATH ) latanoprost 0.005 % drops 1 drp OPHTHALMIC ONCE levothyroxine 137 mcg tablet 137 mcg PO MOTUWETH Rx Instructions: PT TAKES ONE TABLET (137 MCG) BY MOUTH ONCE DAILY FRIDAY THROUGH FRIDAY AND 1.5 TABLETS (205.5 MCG) FRIDAY THROUGH FRIDAY montelukast 10 mg tablet 10 mg PO QHS Spiriva Respimat 2.5 mcg/actuation mist 2 puff inhalation QAM PRN (Reason: Wheezing) ergocalciferol (vitamin D2) 50,000 unit tablet 50,000 unit PO MO acetaminophen 325 mg tablet 650 mg PO Q4H PRN (Reason: pain/fever) bupropion HCl 100 mg tablet 100 mg PO BID glucagon 1 mg/mL recon soln 1 mg subcut Q20M PRN (Reason: hypoglycemia) Rx Instructions: until target blood sugar attained ipratropium-albuterol 0.5 mg-3 mg(2.5 mg base)/3 mL solution for nebulization 3 ml INHALATION Q6H PRN (Reason: SHORTNESS OF BREATH ) fluticasone propionate [Flovent HFA] 110 mcg/actuation HFA aerosol inhaler 1 puff INHALATION BID PRN (Reason: Wheezing) insulin glargine [Lantus Solostar U-100 Insulin] 100 unit/mL (3 mL) insulin pen 8 unit subcut DAILY Rx Instructions: PTS DAUGHTER STATES THAT THE PT SELF ADJUSTS NEEDED pioglitazone 30 mg tablet 30 mg PO DAILY calcium acetate(phosphat bind) 667 mg capsule 667 mg PO TID Patient Comments: PTS REGIS STATES THAT THEY JUST RECIEVED THIS RX IN THE MAIL AND HAVE YET TO START IT. mecobalamin (vitamin B12) 500 mcg tablet,chewable 500 mcg PO DAILY calcitriol 0.25 mcg capsule 0.25 mcg PO WEFR Patient Comments: PTS DAUGHTER STATES THAT THIS IS USUALLY TAKEN TWICE A WEEEK ON FRIDAY AND FRIDAY aspirin [Adult Aspirin Regimen] 81 mg tablet,delayed release (DR/EC) 81 mg PO DAILY levothyroxine 137 mcg capsule 205.5 mcg PO SUFRSA Rx Instructions: PT TAKES ONE TABLET (137 MCG) BY MOUTH ONCE DAILY FRIDAY THROUGH FRIDAY AND 1.5 TABLETS (205.5 MCG) FRIDAY THROUGH FRIDAY magnesium oxide 400 mg magnesium tablet 400 mg PO DAILY sennosides-docusate sodium [Stool Softener-Stimulant Laxat] 8.6-50 mg Tablet 2 tab PO BID PRN PRN (Reason: CONSTIPATION) Qty: 0 0RF midodrine 5 mg Tablet 5 mg PO TIDCM Qty: 0 0RF meclizine 12.5 mg tablet 12.5 mg PO BID PRN (Reason: VERTIGO) 30 Days Qty: 0 0RF Primary Care Provider: Satnam Saldana Referrals: Satnam Saldana MD [Primary Care Provider] - Disposition Disposition: Acute Care [facility]
[2023-01-10 17:14] LABS: ALB/GLOB Ratio 0.3 RATIO (0.9-2.4); AST(SGOT) 36 U/L (15-37); Alanine Aminotransfer ALT/SGPT 17 U/L (13-56); Albumin, Serum 1.7 g/dL (3.2-5.0); Alkaline Phosphatase 118 U/L (45-117); Anion Gap 8 (5-15); BUN 11 mg/dL (7-18); BUN/Creat Ratio 3.9 RATIO (10-20); Calcium,Total 8.8 mg/dL (8.5-10.1); Chloride 96 mmol/L (98-107); Creatinine, Serum 2.81 mg/dL (0.55-1.02); EST Glomerular Filtration Rate 17 mL/min (>60); Est Glom Filt Rate - Afr Amer 21 mL/min (>60); Estimated Creatinine Clearance 12.05 ml/min; Globulin 5.7 g/dL (2.2-4.2); Glucose 138 mg/dL (74-106); Potassium 4.1 mmol/L (3.5-5.1); Protein, Total 7.4 g/dL (6.4-8.2); Sodium Level 133 mmol/L (136-145)
[2023-01-10] MEDS: Albuterol 2.5 MG/3 ML VIAL.NEB. INHALATION ×3 (17:20)
[2023-01-10 17:24] LABS: Bedside Glucose 120 mg/dL (74-106)
--- NOTE | 2023-01-10 20:19 | HP.PCM.HOS_ITS ---
HPI - General General Date of Admission: 01/10/23 HPI Narrative Chalino WHELAN, is a 82 F who presents to the hospital after was reported to be a large volume hematemesis on dialysis today. She has dialysis secondary to diabetes, she is to be on peritoneal dialysis but was recently transition to hemodialysis secondary to multiple issues with infection from her peritoneal dialysis. Since she started hemodialysis according to family, she has been coming home after dialysis with significant nausea. Today when they went to pick her up from dialysis she had a large volume what appeared to be coffee- ground emesis. On arrival to the ER she was placed on oxygen at around 2 L. Lab work demonstrates a hemoglobin of 13 but she does have a leukocytosis of 20.4 but is afebrile. Chest x-ray does not demonstrate a pneumonia but there is a possibility of aspiration. She has had a previous upper GI done on 10/16/2022 for possible GI bleeding at that time the exam was normal with no signs of ulcers either in the stomach or in the duodenum. [facility] Medical History Acute respiratory failure Albuminuria Asthma Bilateral carotid artery stenosis Chronic anemia Chronic diastolic CHF (congestive heart failure) Chronic kidney disease Esophageal dysphagia ESRD on peritoneal dialysis Essential hypertension GERD (gastroesophageal reflux disease) Glaucoma Hyperlipidemia Hyperparathyroidism, secondary renal Hypothyroidism Leg wound, right Lichenification and lichen simplex chronicus Major depressive disorder Methicillin resistant Staphylococcus epidermidis infection Neurodermatitis Non-proliferative diabetic retinopathy, both eyes Nonobstructive atherosclerosis of coronary artery Normocytic anemia Nummular eczema Obesity Open wound of right forearm 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) Recurrent syncope (03/28/21) Severe protein-calorie malnutrition Skin tear of right forearm without complication Skin tear of right lower leg without complication Stage 3 chronic kidney disease Stenosis of left carotid artery Torsades de pointes (03/28/21) Transient visual loss, right eye (11/2020) Type II diabetes mellitus Ventricular tachycardia Vitamin B 12 deficiency Home Medications atorvastatin 80 mg tablet 80 mg PO QHS CHOLESTEROL 10/12/18 [History Last Taken 10/10/22] omeprazole 40 mg capsule,delayed release 40 mg PO DAILY ACID REFLUX 10/12/18 [History Last Taken 10/10/22] albuterol sulfate 90 mcg/actuation aerosol inhaler 2 puff inhalation Q4H PRN SHORTNESS OF BREATH 10/13/18 [History Last Taken Unknown] montelukast 10 mg tablet 10 mg PO QHS ALLERGIES 10/26/19 [History Last Taken 10/10/22] acetaminophen 325 mg tablet 650 mg PO Q4H PRN pain/fever 05/10/21 [History Last Taken Unknown] ergocalciferol (vitamin D2) 50,000 unit tablet 50,000 unit PO MO SUPPLEMENT 05/10/21 [History Last Taken 10/07/22] ipratropium 0.5 mg-albuterol 3 mg (2.5 mg base)/3 mL nebulization soln 3 ml inhalation Q6H PRN SHORTNESS OF BREATH 05/10/21 [History Last Taken Unknown] fluticasone propionate 110 mcg/actuation HFA aerosol inhaler (Flovent HFA) 1 puff inhalation BID PRN Wheezing 02/08/22 [History Last Taken Unknown] latanoprost 0.005 % eye drops 1 drp ophthalmic (eye) ONCE GLAUCOMA 02/08/22 [History Last Taken Unknown] tiotropium bromide 2.5 mcg/actuation mist for inhalation (Spiriva Respimat) 2 puff inhalation QAM PRN Wheezing 02/08/22 [History Last Taken Unknown] bupropion HCl 100 mg tablet 100 mg PO BID DEPRESSION 08/16/22 [History Last Taken 10/10/22] insulin glargine 100 unit/mL (3 mL) subcutaneous pen (Lantus Solostar U-100 Insulin) 8 unit subcut DAILY BLOOD SUGARS 08/16/22 [History Last Taken 10/10/22] levothyroxine 137 mcg tablet 137 mcg PO MOTUWETH 08/16/22 [History Last Taken 10/10/22] aspirin 81 mg tablet,delayed release (Adult Aspirin Regimen) 81 mg PO DAILY HEART HEALTH 10/11/22 [History Last Taken 10/10/22] calcitriol 0.25 mcg capsule 0.25 mcg PO WEFR 10/11/22 [History Last Taken 10/09/22] calcium acetate(phosphat bind) 667 mg capsule 667 mg PO TID 10/11/22 [History Last Taken Unknown] levothyroxine 137 mcg capsule 205.5 mcg PO SUFRSA THYROID 10/11/22 [History Last Taken 10/06/22] magnesium oxide 400 mg PO DAILY SUPPLEMENT 10/11/22 [History Last Taken 10/10/22] mecobalamin (vitamin B12) 500 mcg chewable tablet 500 mcg PO DAILY SUPPLEMENT 10/11/22 [History Last Taken 10/10/22] pioglitazone 30 mg tablet 30 mg PO DAILY DIABETES 10/11/22 [History Last Taken 10/10/22] meclizine 12.5 mg tablet 12.5 mg PO BID PRN VERTIGO 30 days #0 tabs 10/26/22 [Rx Last Taken 10/10/22] midodrine 5 mg tablet 5 mg PO TIDCM #0 tabs 10/26/22 [Rx Last Taken Unknown] sennosides 8.6 mg-docusate sodium 50 mg tablet (Stool Softener-Stimulant Laxative) 2 tab PO BID PRN PRN CONSTIPATION #0 tabs 10/26/22 [Rx Last Taken Unknown] glucagon 1 mg/mL solution for injection 1 mg subcut Q20M PRN hypoglycemia 11/06/22 [History Last Taken Unknown] Allergy/AdvReac Type Severity Reaction Status Date / Time metformin [From Glucophage] Allergy Severe renal Verified 01/10/23 15:49 failure adhesive Allergy Intermediate blisters Verified 01/10/23 15:49 oxycodone Allergy Intermediate hallucinati Verified 01/10/23 15:49 ons tramadol Allergy Intermediate Vomiting Verified 01/10/23 15:49 metoclopramide [From Reglan] Allergy Mild Nausea Verified 01/10/23 16:43 ERIC Inhibitors AdvReac Intermediate cough Verified 01/10/23 15:49 buspirone [From BuSpar] AdvReac Hallucinati Verified 01/10/23 15:49 ons Family History Father Heart disease Hypertension Suicide Mother Hypertension CVA (cerebral vascular accident) COPD (chronic obstructive pulmonary disease) CAD (coronary artery disease) Surgical History History of bilateral knee replacement (1989) History of breast biopsy History of implantable cardiac defibrillator (ICD) (04/02/21) History of left heart catheterization (03/28/21) History of open reduction and internal fixation (ORIF) procedure History of right cataract extraction (10/03/11) History of temporary cardiac pacemaker treatment (03/28/21) History of tonsillectomy Social History household members: none Smoking Status: Never smoker alcohol intake: never substance use type: does not use caffeine: Yes Type: coffee Number of servings: 2 ROS Constitutional Constitutional: Denies chills, fatigue, fever(s) or malaise Eyes Eyes: Denies blurry vision ENT HEENT: Denies headache(s) or nasal discharge Cardiovascular Cardiovascular: Denies chest pain, dyspnea on exertion or syncope Respiratory/Chest Respiratory/Chest: Denies cough, shortness of breath at rest or shortness of breath with exertion Gastrointestinal Gastrointestinal: Reports hematemesis, nausea and vomiting; Denies constipation or diarrhea Genitourinary Genitourinary: Denies dysuria Neurologic Neurologic: Denies focal weakness, numbness or tremor(s) Psychiatric Psychiatric: Denies anxiety or depression Vital Signs Vital Signs Vital Signs: 01/10/23 15:49 01/10/23 15:52 01/10/23 16:13 Temperature 97.3 F L 97.3 F L Temperature Source Temporal Temporal Pulse Rate 99 99 Respiratory Rate 18 18 Respiratory Effort Short of Breath Respiratory Pattern Tachypnea Blood Pressure 133/76 H 133/76 H Blood Pressure Mean 95 95 Blood Pressure Source Blood Pressure Position Blood Pressure Location Pulse Ox Oxygen Delivery Method Oxygen Flow Rate (L/min) 01/10/23 16:33 01/10/23 17:00 01/10/23 17:10 Temperature 99.6 F H Temperature Source Oral Pulse Rate 95 95 95 Respiratory Rate 22 H 14 18 Respiratory Effort Respiratory Pattern Blood Pressure 145/72 H 161/49 H 162/67 H Blood Pressure Mean 96 86 98 Blood Pressure Source Blood Pressure Position Blood Pressure Location Pulse Ox 94 100 100 Oxygen Delivery Method Nasal Cannula Nasal Cannula Nasal Cannula Oxygen Flow Rate (L/min) 2 2 2 01/10/23 17:21 01/10/23 18:19 01/10/23 19:00 Temperature 99.7 F H Temperature Source Pulse Rate 96 98 91 Respiratory Rate 18 23 H 27 H Respiratory Effort Respiratory Pattern Normal Blood Pressure 162/57 H 135/41 H Blood Pressure Mean 92 72 Blood Pressure Source Blood Pressure Position Blood Pressure Location Pulse Ox 100 97 Oxygen Delivery Method Room Air Oxygen Flow Rate (L/min) 01/10/23 20:13 Temperature 98.7 F Temperature Source Oral Pulse Rate 91 Respiratory Rate 18 Respiratory Effort Respiratory Pattern Blood Pressure 134/40 H Blood Pressure Mean 71 Blood Pressure Source Monitor Blood Pressure Position Semi-Fowlers Blood Pressure Location Right Arm Pulse Ox 92 Oxygen Delivery Method Room Air Oxygen Flow Rate (L/min) Weight Weight: 205 lb 0.478 oz Body Mass Index (BMI) 38.7 Physical Exam Narrative General: Alert, Oriented x3, Cooperative, No apparent distress HEENT: Atraumatic, PERRLA, EOMI, Normocephalic Oral: Moist Mucosa Neck: Supple, No JVD Lungs: Diminished, Normal air movement, No rhonchi, No wheeze, No rales Cardiovascular: Regular rate, Regular Rhythm, Normal S1, Normal S2, No murmurs Abdomen: Soft, Non Tender, mildly distended, No Hepato-splenomegaly Extremities: No edema, Capillary Refill Less than 3 Seconds Skin: No rashes, No breakdown Musculoskeletal: No Tenderness to Palpation of Joints or Extremities Neurological: Cranial nerves II-XII grossly intact, Motor Exam 5/5 strength throughout, Sensory exam intact to light touch and pain Psych/Mental Status: Normal Affect, Appropriate Results Lab / Micro Data 01/10/23 16:10 01/10/23 16:10 Labs: Laboratory Results - last 24 hr 01/10/23 16:10: WBC 20.4 H, RBC 4.14 L, Hgb 13.1, Hct 41.3, MCV 99.8 H, MCH 31.6, MCHC 31.7 L, RDW Std Deviation 63.0 H, RDW Coeff of Alanna 17.4 H, Plt Count 373, MPV 9.9, Immature Gran % (Auto) 1.200 H, Neut % (Auto) 87.3 H, Lymph % (Auto) 5.7 L, [place] % (Auto) 5.5, Eos % (Auto) 0.1, Baso % (Auto) 0.2, Absolute Neuts (auto) 17.8 H, Absolute Lymphs (auto) 1.17, Nucleated RBC % 0, Sodium 133 L, Potassium 4.1, Chloride 96 L, Carbon Dioxide 29.0, Anion Gap 8, BUN 11, Creatinine 2.81 H, Estim Creat Clear Calc 12.05, Est GFR (MDRD) Af Amer 21 L, Est GFR (MDRD) Non-Af 17 L, BUN/Creatinine Ratio 3.9 L, Glucose 138 H, Lactic Acid 2.0, Calcium 8.8, Total Bilirubin 0.40, AST 36, ALT 17, Alkaline Phosphatase 118 H, Total Protein 7.4, Albumin 1.7 L, Globulin 5.7 H, Albumin/Globulin Ratio 0.3 L, Blood Type A POSITIVE, Antibody Screen NEGATIVE 01/10/23 16:57: POC Glucose 120 H Radiology Impression Chest X-Ray 01/10/23 16:40 IMPRESSION: No radiographic evidence of acute cardiopulmonary disease. Electronically Signed: Isaias Jade DO at 17:03 EDT Reading Location ID and State: [facility] / [place] Tel [phone], Service support , Assessment & Plan Assessment/Plan (1) Acute upper gastrointestinal bleeding: PLAN: Plan 1. Acute upper GI bleeding with possible aspiration pneumonia versus pneumonitis ? We will place her on IV PPI and hold her aspirin ? It is unclear whether or not she has an infectious etiology versus just a typical pneumonitis therefore we will hold off on antibiotics and repeat CBC in the morning can add antibiotics at that time if there is no significant improvement in her white count ? We will consult gastroenterology for evaluation and we will repeat H&H this evening 2. End-stage renal disease due to diabetes on hemodialysis ? We will consult nephrology for dialysis ? We will hold her home Actos ? Continue with Accu-Cheks ACHS ? Sliding scale insulin ? We will monitor and make adjustments as necessary 3. HTN/HLD/nonobstructive CAD/nonsustained VT status post defibrillator ? She is on midodrine with dialysis which we will continue ? Continue with Lipitor ? We will monitor her blood pressures and make adjustments as necessary ? We will hold her at aspirin 4. Hypothyroidism ? Stable ? Can resume her home Synthroid 5. Anxiety/depression ? Stable ? Continue with her home medications DVT: SCDs 75 minutes was spent on direct patient care, including documentation as well as chart review and collaboration with colleagues Charges/Coding Visit Charges Inpatient E&M: 58555 Init Hosp L3
[2023-01-10 20:30] LABS: Reflex Lactate? Y
[2023-01-10 21:35] LABS: Hematocrit 35.1 % (37-47); Hemoglobin 11.4 g/dL (12.0-15.0)
[2023-01-10 21:52] LABS: Lactic Acid 3.4 mmol/L (0.4-1.9)
--- NOTE | 2023-01-10 22:26 | PCM.PN.BLA ---
Progress Note With lactic acid trended up and consideration of aspiration pneumonia versus pneumonitis. We will start patient on Unasyn. Will trend lactic acid.
[2023-01-10] MEDS: buPROPion 100 MG Tablet PO (22:50)
[2023-01-10] MEDS: Montelukast 10 MG Tablet PO (22:50)
[2023-01-10] MEDS: Atorvastatin Calcium 80 MG Tablet PO (22:50)
[2023-01-10] MEDS: Latanoprost 0.005% 1 Bottle 1 DRP OPHTHALMIC (22:50)
[2023-01-10 22:59] LABS: Bedside Glucose 92 mg/dL (74-106)
[2023-01-10] MEDS: Ampicillin/Sulbactam 3 GM in 0.9% Normal Saline (100mL MB+) 100 ML IV (23:00)
--- NOTE | 2023-01-10 23:00 | EX.PCM.CON.G ---
HPI Consult Data Date of Consult: 01/10/23 HPI Narrative Reason for Consultation: GI bleed HPI Narrative: Chalino WHELAN, is a 82-year-old woman who presents from dialysis because of hematemesis and coffee-ground emesis. She was recently admitted for upper GI bleed. She was seen by Dr. Montgomery at that time. Per family etiology of the bleed was undetermined. Patient did receive 8000 units of heparin at 12 noon. She does report coughing after vomiting. She denies fever, chills night sweats. She does report mild shortness of breath. She denies history of asthma. She denies chest discomfort. She has mild epigastric discomfort. She denies being bloated or distended. Last bowel movement was 48 hours ago. She is not on anticoagulant Patient denies bruising easily. She has not noted a rash or any lesions. She denies headache, visual, ocular auditory symptoms. She is slightly somnolent compared to normal per family. [facility] Medical History Acute respiratory failure Albuminuria Asthma Bilateral carotid artery stenosis Chronic anemia Chronic diastolic CHF (congestive heart failure) Chronic kidney disease Esophageal dysphagia ESRD on peritoneal dialysis Essential hypertension GERD (gastroesophageal reflux disease) Glaucoma Hyperlipidemia Hyperparathyroidism, secondary renal Hypothyroidism Leg wound, right Lichenification and lichen simplex chronicus Major depressive disorder Methicillin resistant Staphylococcus epidermidis infection Neurodermatitis Non-proliferative diabetic retinopathy, both eyes Nonobstructive atherosclerosis of coronary artery Normocytic anemia Nummular eczema Obesity Open wound of right forearm 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) Recurrent syncope (03/28/21) Severe protein-calorie malnutrition Skin tear of right forearm without complication Skin tear of right lower leg without complication Stage 3 chronic kidney disease Stenosis of left carotid artery Torsades de pointes (03/28/21) Transient visual loss, right eye (11/2020) Type II diabetes mellitus Ventricular tachycardia Vitamin B 12 deficiency Home Medications atorvastatin 80 mg tablet 80 mg PO QHS CHOLESTEROL 10/12/18 [History Last Taken 10/10/22] omeprazole 40 mg capsule,delayed release 40 mg PO DAILY ACID REFLUX 10/12/18 [History Last Taken 10/10/22] albuterol sulfate 90 mcg/actuation aerosol inhaler 2 puff inhalation Q4H PRN SHORTNESS OF BREATH 10/13/18 [History Last Taken Unknown] montelukast 10 mg tablet 10 mg PO QHS ALLERGIES 10/26/19 [History Last Taken 10/10/22] acetaminophen 325 mg tablet 650 mg PO Q4H PRN pain/fever 05/10/21 [History Last Taken Unknown] ergocalciferol (vitamin D2) 50,000 unit tablet 50,000 unit PO MO SUPPLEMENT 05/10/21 [History Last Taken 10/07/22] ipratropium 0.5 mg-albuterol 3 mg (2.5 mg base)/3 mL nebulization soln 3 ml inhalation Q6H PRN SHORTNESS OF BREATH 05/10/21 [History Last Taken Unknown] fluticasone propionate 110 mcg/actuation HFA aerosol inhaler (Flovent HFA) 1 puff inhalation BID PRN Wheezing 02/08/22 [History Last Taken Unknown] latanoprost 0.005 % eye drops 1 drp ophthalmic (eye) ONCE GLAUCOMA 02/08/22 [History Last Taken Unknown] tiotropium bromide 2.5 mcg/actuation mist for inhalation (Spiriva Respimat) 2 puff inhalation QAM PRN Wheezing 02/08/22 [History Last Taken Unknown] bupropion HCl 100 mg tablet 100 mg PO BID DEPRESSION 08/16/22 [History Last Taken 10/10/22] insulin glargine 100 unit/mL (3 mL) subcutaneous pen (Lantus Solostar U-100 Insulin) 8 unit subcut DAILY BLOOD SUGARS 08/16/22 [History Last Taken 10/10/22] levothyroxine 137 mcg tablet 137 mcg PO MOTUWETH 08/16/22 [History Last Taken 10/10/22] aspirin 81 mg tablet,delayed release (Adult Aspirin Regimen) 81 mg PO DAILY HEART HEALTH 10/11/22 [History Last Taken 10/10/22] calcitriol 0.25 mcg capsule 0.25 mcg PO WEFR 10/11/22 [History Last Taken 10/09/22] calcium acetate(phosphat bind) 667 mg capsule 667 mg PO TID 10/11/22 [History Last Taken Unknown] levothyroxine 137 mcg capsule 205.5 mcg PO SUFRSA THYROID 10/11/22 [History Last Taken 10/06/22] magnesium oxide 400 mg PO DAILY SUPPLEMENT 10/11/22 [History Last Taken 10/10/22] mecobalamin (vitamin B12) 500 mcg chewable tablet 500 mcg PO DAILY SUPPLEMENT 10/11/22 [History Last Taken 10/10/22] pioglitazone 30 mg tablet 30 mg PO DAILY DIABETES 10/11/22 [History Last Taken 10/10/22] meclizine 12.5 mg tablet 12.5 mg PO BID PRN VERTIGO 30 days #0 tabs 10/26/22 [Rx Last Taken 10/10/22] midodrine 5 mg tablet 5 mg PO TIDCM #0 tabs 10/26/22 [Rx Last Taken Unknown] sennosides 8.6 mg-docusate sodium 50 mg tablet (Stool Softener-Stimulant Laxative) 2 tab PO BID PRN PRN CONSTIPATION #0 tabs 10/26/22 [Rx Last Taken Unknown] glucagon 1 mg/mL solution for injection 1 mg subcut Q20M PRN hypoglycemia 11/06/22 [History Last Taken Unknown] Allergy/AdvReac Type Severity Reaction Status Date / Time metformin [From Glucophage] Allergy Severe renal Verified 01/10/23 15:49 failure adhesive Allergy Intermediate blisters Verified 01/10/23 15:49 oxycodone Allergy Intermediate hallucinati Verified 01/10/23 15:49 ons tramadol Allergy Intermediate Vomiting Verified 01/10/23 15:49 metoclopramide [From Reglan] Allergy Mild Nausea Verified 01/10/23 16:43 ERIC Inhibitors AdvReac Intermediate cough Verified 01/10/23 15:49 buspirone [From BuSpar] AdvReac Hallucinati Verified 01/10/23 15:49 ons Family History Father Heart disease Hypertension Suicide Mother Hypertension CVA (cerebral vascular accident) COPD (chronic obstructive pulmonary disease) CAD (coronary artery disease) Surgical History History of bilateral knee replacement (1989) History of breast biopsy History of implantable cardiac defibrillator (ICD) (04/02/21) History of left heart catheterization (03/28/21) History of open reduction and internal fixation (ORIF) procedure History of right cataract extraction (10/03/11) History of temporary cardiac pacemaker treatment (03/28/21) History of tonsillectomy Social History household members: none Smoking Status: Never smoker alcohol intake: never substance use type: does not use caffeine: Yes Type: coffee Number of servings: 2 ROS Constitutional Constitutional: Denies chills, fatigue, fever(s) or malaise Eyes Eyes: Denies blurry vision ENT HEENT: Denies headache(s) or nasal discharge Cardiovascular Cardiovascular: Denies chest pain, dyspnea on exertion or syncope Respiratory/Chest Respiratory/Chest: Denies cough, shortness of breath at rest or shortness of breath with exertion Gastrointestinal Gastrointestinal: Reports hematemesis, nausea and vomiting; Denies constipation or diarrhea Genitourinary Genitourinary: Denies dysuria Neurologic Neurologic: Denies focal weakness, numbness or tremor(s) Psychiatric Psychiatric: Denies anxiety or depression Physical Exam Narrative General: Alert, Oriented x3, Cooperative, No apparent distress HEENT: Atraumatic, PERRLA, EOMI, Normocephalic Oral: Moist Mucosa Neck: Supple, No JVD Lungs: Diminished, Normal air movement, No rhonchi, No wheeze, No rales Cardiovascular: Regular rate, Regular Rhythm, Normal S1, Normal S2, No murmurs Abdomen: Soft, Non Tender, mildly distended, No Hepato-splenomegaly Extremities: No edema, Capillary Refill Less than 3 Seconds Skin: No rashes, No breakdown Musculoskeletal: No Tenderness to Palpation of Joints or Extremities Neurological: Cranial nerves II-XII grossly intact, Motor Exam 5/5 strength throughout, Sensory exam intact to light touch and pain Psych/Mental Status: Normal Affect, Appropriate Lab / Micro Data 01/11/23 05:30 01/11/23 05:30 Labs: Laboratory Results - last 24 hr 01/10/23 16:10: WBC 20.4 H, RBC 4.14 L, Hgb 13.1, Hct 41.3, MCV 99.8 H, MCH 31.6, MCHC 31.7 L, RDW Std Deviation 63.0 H, RDW Coeff of Alanna 17.4 H, Plt Count 373, MPV 9.9, Immature Gran % (Auto) 1.200 H, Neut % (Auto) 87.3 H, Lymph % (Auto) 5.7 L, [place] % (Auto) 5.5, Eos % (Auto) 0.1, Baso % (Auto) 0.2, Absolute Neuts (auto) 17.8 H, Absolute Lymphs (auto) 1.17, Nucleated RBC % 0, Sodium 133 L, Potassium 4.1, Chloride 96 L, Carbon Dioxide 29.0, Anion Gap 8, BUN 11, Creatinine 2.81 H, Estim Creat Clear Calc 12.05, Est GFR (MDRD) Af Amer 21 L, Est GFR (MDRD) Non-Af 17 L, BUN/Creatinine Ratio 3.9 L, Glucose 138 H, Lactic Acid 2.0, Calcium 8.8, Total Bilirubin 0.40, AST 36, ALT 17, Alkaline Phosphatase 118 H, Total Protein 7.4, Albumin 1.7 L, Globulin 5.7 H, Albumin/Globulin Ratio 0.3 L, Blood Type A POSITIVE, Antibody Screen NEGATIVE 01/10/23 16:57: POC Glucose 120 H 01/10/23 20:50: Lactic Acid 3.4 H* 01/10/23 21:17: Hgb 11.4 L, Hct 35.1 L 01/10/23 22:41: POC Glucose 92 01/11/23 05:30: WBC 20.3 H, RBC 3.50 L, Hgb 11.0 L, Hct 34.1 L, MCV 97.4, MCH 31.4, MCHC 32.3, RDW Std Deviation 61.3 H, RDW Coeff of Alanna 17.4 H, Plt Count 312, MPV 9.6, Immature Gran % (Auto) 0.500, Neut % (Auto) 82.4 H, Lymph % (Auto) 9.6 L, [place] % (Auto) 7.2, Eos % (Auto) 0.1, Baso % (Auto) 0.2, Absolute Neuts (auto) 16.7 H, Absolute Lymphs (auto) 1.95, Nucleated RBC % 0, PT 14.2, INR 1.1, APTT 44.0 H, Sodium 136, Potassium 4.0, Chloride 100, Carbon Dioxide 29.0, Anion Gap 7, BUN 14, Creatinine 3.47 H, Estim Creat Clear Calc 9.76, Est GFR (MDRD) Af Amer 16 L, Est GFR (MDRD) Non-Af 14 L, BUN/Creatinine Ratio 4.0 L, Glucose 92, Hemoglobin A1c 5.5, Lactic Acid 0.6, Calcium 8.5, TSH 61.40 H 01/11/23 05:40: POC Glucose 76 Radiology Impression Chest X-Ray 01/10/23 16:40 IMPRESSION: No radiographic evidence of acute cardiopulmonary disease. Electronically Signed: Isaias Jade DO at 17:03 EDT Reading Location ID and State: [facility] / [place] Tel [phone], Service support , Assessment & Plan Assessment/Plan (1) Acute upper gastrointestinal bleeding: PLAN: Plan Suspected acute upper GI bleeding with possible aspiration pneumonia The differential diagnosis does include Rosalina-Otto tear, erosive esophagitis, peptic ulcer disease. She will undergo an upper endoscopy to evaluate upper GI tract. She was explained alternatives, risk, benefits including outstanding bleeding, infection, sepsis, perforation, need for emergent urgent . She will have an ASA of 3. Charges/Coding Visit Charges Inpatient E&M: 54615 Init Hosp L3
[2023-01-10] MEDS: CLARIFY ORDER NOTE (23:46)
[2023-01-11] VITALS (8 sets, daily range): BP systolic 125–152; BP diastolic 39–82; PULSE 84–88; RESP 16–18; TEMP 36.4–37.3; O2SAT 92–97
[2023-01-11] MEDS: Levothyroxine 137 MCG Tablet 205.5 MCG PO (05:44)
[2023-01-11 05:46] LABS: Absolute Lymphocyte Count 1.95 X10^3/uL (0.83-4.51); Absolute Neutrophil Count 16.7 X10^3/uL (2.0-7.7); Basophil# 0.04 X10^3/uL; Basophil% 0.2 % (0-1); Eosinophil# 0.02 X10^3/uL; Eosinophils% 0.1 % (0-5); Hematocrit 34.1 % (37-47); Lymphocyte # 1.95 X10^3/ul (0.83-4.51); Lymphocyte % 9.6 % (19-41); Mean Corp Hgb Conc 32.3 g/dL (32-36); Mean Corpuscular Hgb 31.4 pg (27.0-32.0); Mean Corpuscular Volume 97.4 fL (81-99); Mean Platelet Vol. 9.6 fl (6.2-12.0); Monocyte# 1.46 X10^3/uL; Monocyte% 7.2 % (0-10); NRBC Flagged by Analyzer 0 % (0-5); Neutrophil # 16.72 X10^3/uL (2.7-7.7); Neutrophil % 82.4 % (47-70); Platelet Count 312 K/mm3 (150-450); RBC Distribution Width CV 17.4 % (11.6-14.6); RBC Distribution Width SD 61.3 fl (35.1-43.9); White Blood Count 20.3 K/mm3 (4.4-11.0)
[2023-01-11 05:54] LABS: International Normalized Ratio 1.1; Prothrombin Time (Protime)PT. 14.2 SECONDS (11.7-14.9)
[2023-01-11 06:05] LABS: Bedside Glucose 76 mg/dL (74-106)
[2023-01-11 06:08] LABS: Lactic Acid 0.6 mmol/L (0.4-1.9)
[2023-01-11 06:44] LABS: Anion Gap 7 (5-15); BUN 14 mg/dL (7-18); Calcium,Total 8.5 mg/dL (8.5-10.1); Chloride 100 mmol/L (98-107); Creatinine, Serum 3.47 mg/dL (0.55-1.02); EST Glomerular Filtration Rate 14 mL/min (>60); Est Glom Filt Rate - Afr Amer 16 mL/min (>60); Estimated Creatinine Clearance 9.76 ml/min; Glucose 92 mg/dL (74-106); Sodium Level 136 mmol/L (136-145)
--- NOTE | 2023-01-11 07:31 | PCM.PN.HOSP ---
Reason for Visit Reason for Visit: Diagnoses Gastrointestinal hemorrhage, unspecified (01/10/23) Subjective Subjective Patient is an 82-year-old female with history of end-stage renal disease on hemodialysis who presented with hematemesis and suspected aspiration pneumonitis Objective Data Objective Data Vital Signs: Vital Signs Temp Pulse Resp BP Pulse Ox O2 Del Method O2 Flow Rate 99.1 F 88 18 125/43 H 94 Room Air 2 01/11/23 05:36 01/11/23 05:36 01/11/23 05:36 01/11/23 05:36 01/11/23 05:36 01/11/23 05:36 01/10/23 17:10 Oxygen Flow Rate (L/min) 2 Oxygen Delivery Method Room Air Weight: 93 kg Body Mass Index (BMI) 38.7 Intake & Output: Intake and Output for Last 24 Hours 01/09/23 01/10/23 01/11/23 23:59 23:59 23:59 Intake Total 147 / 147 200 / 200 Balance 147 / 147 200 / 200 Lab / Micro Data 01/11/23 05:30 01/11/23 05:30 Labs: Laboratory Results - last 24 hr 01/10/23 16:10: WBC 20.4 H, RBC 4.14 L, Hgb 13.1, Hct 41.3, MCV 99.8 H, MCH 31.6, MCHC 31.7 L, RDW Std Deviation 63.0 H, RDW Coeff of Alanna 17.4 H, Plt Count 373, MPV 9.9, Immature Gran % (Auto) 1.200 H, Neut % (Auto) 87.3 H, Lymph % (Auto) 5.7 L, Early % (Auto) 5.5, Eos % (Auto) 0.1, Baso % (Auto) 0.2, Absolute Neuts (auto) 17.8 H, Absolute Lymphs (auto) 1.17, Nucleated RBC % 0, Sodium 133 L, Potassium 4.1, Chloride 96 L, Carbon Dioxide 29.0, Anion Gap 8, BUN 11, Creatinine 2.81 H, Estim Creat Clear Calc 12.05, Est GFR (MDRD) Af Amer 21 L, Est GFR (MDRD) Non-Af 17 L, BUN/Creatinine Ratio 3.9 L, Glucose 138 H, Lactic Acid 2.0, Calcium 8.8, Total Bilirubin 0.40, AST 36, ALT 17, Alkaline Phosphatase 118 H, Total Protein 7.4, Albumin 1.7 L, Globulin 5.7 H, Albumin/Globulin Ratio 0.3 L, Blood Type A POSITIVE, Antibody Screen NEGATIVE 01/10/23 16:57: POC Glucose 120 H 01/10/23 20:50: Lactic Acid 3.4 H* 01/10/23 21:17: Hgb 11.4 L, Hct 35.1 L 01/10/23 22:41: POC Glucose 92 01/11/23 05:30: WBC 20.3 H, RBC 3.50 L, Hgb 11.0 L, Hct 34.1 L, MCV 97.4, MCH 31.4, MCHC 32.3, RDW Std Deviation 61.3 H, RDW Coeff of Alanna 17.4 H, Plt Count 312, MPV 9.6, Immature Gran % (Auto) 0.500, Neut % (Auto) 82.4 H, Lymph % (Auto) 9.6 L, Early % (Auto) 7.2, Eos % (Auto) 0.1, Baso % (Auto) 0.2, Absolute Neuts (auto) 16.7 H, Absolute Lymphs (auto) 1.95, Nucleated RBC % 0, PT 14.2, INR 1.1, APTT 44.0 H, Sodium 136, Potassium 4.0, Chloride 100, Carbon Dioxide 29.0, Anion Gap 7, BUN 14, Creatinine 3.47 H, Estim Creat Clear Calc 9.76, Est GFR (MDRD) Af Amer 16 L, Est GFR (MDRD) Non-Af 14 L, BUN/Creatinine Ratio 4.0 L, Glucose 92, Lactic Acid 0.6, Calcium 8.5, TSH 61.40 H 01/11/23 05:40: POC Glucose 76 Radiography Diagnostic Testing: Radiology Impression Chest X-Ray 01/10/23 16:40 IMPRESSION: No radiographic evidence of acute cardiopulmonary disease. Electronically Signed: Isaias Jade DO at 17:03 EDT , Physical Exam Narrative GENERAL: cooperative HEENT: Atraumatic; normocephalic EYES; Anicteric, Normal Conjunctiva NECK; supple, normal thyroid, RESPIRATORY: Diminished to auscultation CARDIOVASCULAR: Regular S1 S2, GI: soft, normoactive bowel sounds, : No Renal angle tenderness; EXTREMITIES: No edema, no clubbing, MUSCULOSKELETAL: no muscle wasting NEURO: Awake; no lateralizing signs. SKIN: No Rash PSYCH; Flat affect Assessment & Plan Assessment/Plan (1) Acute upper gastrointestinal bleeding: PLAN: Plan Patient is an 82-year-old female with history of end-stage renal disease on hemodialysis who presented with hematemesis and suspected aspiration pneumonitis 1. Acute upper GI bleed -Patient presented with hematemesis started on Protonix drip admitted to regular nursing floor with consultation placed to GI 3. Aspiration pneumonitis ?Patient was started on Unasyn given her persistent leukocytosis 3. End-stage renal disease ? Patient is on hemodialysis. Nephrology consulted for dialysis orders 4. Hypothyroidism - Patient is on levothyroxine home dose continued 5. Hypertension - Blood pressure controlled, home medications continued with dose adjustment as needed 6. Diabetes mellitus type 2 ? With complications including diabetic nephropathy patient is on Actos held please on Accu-Cheks before meals and at bedtime 7. 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 Chronic congestive heart failure with preserved ejection fraction ? Echo from 08/18/2021 demonstrated EF of 65%. Patient remains stable 9. Dyslipidemia -Patient is on statin therapy, continued at home dose 10. GERD ? On PPI 11. Depression with anxiety ? Stable on bupropion continue 12. Class II obesity with BMI of 38.7 ? Complicating care weight loss advised 13. DVT prophylaxis ? SCDs ; chemoprophylaxis contraindicated given patient presentation Time spent in the patient's overall evaluation,decision-making process, review of diagnostic data, adjustment of management, discussion with other providers, nursing nursing and ancillary staff involved in patient's care documentation, 50 Minutes Charges/Coding Visit Charges Inpatient E&M: [id number] [facility] L3
[2023-01-11 08:27] LABS: Hemoglobin A1c 5.5 % (3.8-5.6)
--- NOTE | 2023-01-11 10:44 | OP.EGD_ITS ---
Patient Name: Chalino Banegas Procedure Date: 01/11/2023 10:09 AM Date of : 1940 Age: 82 Procedure: Upper GI endoscopy Indications: Hematemesis Providers: Camilo Montgomery DO Medicines: Monitored Anesthesia Care Patient Profile: This is an 82 year old female. Refer to note in patient chart for documentation of history and physical. Patient has symptoms of acute nausea and acute vomiting. Complications: No immediate complications. Procedure: Pre-Anesthesia Assessment: - Prior to the procedure, a History and Physical was performed, and patient medications and allergies were reviewed. The risks and benefits of the procedure and the sedation options and risks were discussed with the patient. All questions were answered and informed consent was obtained. Patient identification and proposed procedure were verified by the physician. Mental Status Examination: alert and oriented. Airway Examination: normal oropharyngeal airway and neck mobility. Respiratory Examination: clear to auscultation. CV Examination: normal. Prophylactic Antibiotics: The patient does not require prophylactic antibiotics. Prior Anticoagulants: The patient has taken no anticoagulant or antiplatelet agents. ASA Grade Assessment: III - A patient with severe systemic disease. After reviewing the risks and benefits, the patient was deemed in satisfactory condition to undergo the procedure. The anesthesia plan was to use monitored anesthesia care (MAC). Immediately prior to administration of medications, the patient was re-assessed for adequacy to receive sedatives. The heart rate, respiratory rate, oxygen saturations, blood pressure, adequacy of pulmonary ventilation, and response to care were monitored throughout the procedure. The physical status of the patient was re-assessed after the procedure. After obtaining informed consent, the endoscope was passed under direct vision. Throughout the procedure, the patient's blood pressure, pulse, and oxygen saturations were monitored continuously. The gastroscope was introduced through the mouth, and advanced to the second part of duodenum. The upper GI endoscopy was accomplished without difficulty. The patient tolerated the procedure well. Scope In: 10:29:20 AM Scope Out: 10:35:24 AM Total Procedure Duration Time 0 hours 6 minutes 4 seconds Findings: A 4 mm bleeding Rosalina-Otto tear with stigmata of recent bleeding was found. Area was successfully injected with 4 mL of a 0.1 mg/mL solution of epinephrine for drug delivery. Coagulation for hemostasis using heater probe was successful. Estimated blood loss was minimal. A medium-sized hiatal hernia was present. A single 4 mm sessile polyp with no bleeding and no stigmata of recent bleeding was found at the gastroesophageal junction. Three oozing linear gastric ulcers with pigmented material were found on the greater curvature of the stomach. The largest lesion was 3 mm in largest dimension. Coagulation for hemostasis using heater probe was successful. Estimated blood loss was minimal. No gross lesions were noted in the duodenal bulb. Impression: - Rosalina-Otto tear. Injected. Treated with a heater probe. - Medium-sized hiatal hernia. - A single gastroesophageal junction polyp. - Oozing gastric ulcers with pigmented material. Treated with a heater probe. - No gross lesions in the duodenal bulb. - No specimens collected. Recommendation: - Return patient to [facility] for ongoing care. - Full liquid diet. - Continue present medications. -Consider scopolamine patch 1.5 mg every 72 hours for nausea associated with dialysis. Hold for sedation, dry mouth, dry eyes and constipation Procedure Code(s): --- Professional --- 53758, Esophagogastroduodenoscopy, flexible, transoral; with control of bleeding, any method 63584, 59,51, Esophagogastroduodenoscopy, flexible, transoral; with directed submucosal injection(s), any substance CPT copyright 2021 [employer] [place] [employer] [employer]. All rights reserved. The codes documented in this report are preliminary and upon real estate account executive review may be revised to meet current compliance requirements. Camilo Montgomery DO 01/11/2023 10:43:23 AM This report has been signed electronically. Number of Addenda: 0 Note Initiated On: 01/11/2023 10:09 AM
--- NOTE | 2023-01-11 10:44 | OP.CCLET_ITS ---
01/11/2023 Satnam Saldana MD Re : Upper GI endoscopy procedure for Chalino Banegas Dear Dr. Saldana This procedure was performed on Wednesday, January 11, 2023. My impressions and recommendations are as follows: Impressions : - Rosalina-Otto tear. Injected. Treated with a heater probe. - Medium-sized hiatal hernia. - A single gastroesophageal junction polyp. - Oozing gastric ulcers with pigmented material. Treated with a heater probe. - No gross lesions in the duodenal bulb. - No specimens collected. Recommendations : - Return patient to [facility] for ongoing care. - Full liquid diet. - Continue present medications. -Consider scopolamine patch 1.5 mg every 72 hours for nausea associated with dialysis. Hold for sedation, dry mouth, dry eyes and constipation My findings are described in the full procedure note, which is enclosed. If I can be of further assistance, please feel free to contact me at . Sincerely, Camilo Montgomery, 01/11/2023 10:43:23 AM This report has been signed electronically.
[2023-01-11] MEDS: Pantoprazole Sodium 40 MG in 0.9% Normal Saline (100mL MB+) 100 ML 330 MG IV ×2 (12:00→21:02)
[2023-01-11] MEDS: Midodrine HCl 5 MG Tablet PO (12:01)
[2023-01-11] MEDS: buPROPion 100 MG Tablet PO ×2 (12:01→19:38)
[2023-01-11] MEDS: Calcium Acetate 667 MG Capsule PO ×2 (12:01→16:44)
[2023-01-11 12:05] LABS: Bedside Glucose 67 mg/dL (74-106)
[2023-01-11] MEDS: Scopolamine 1mg/72hr Patch 1 PATCH TD (12:10)
[2023-01-11] MEDS: Ampicillin/Sulbactam 3 GM in 0.9% Normal Saline (100mL MB+) 100 ML IV ×2 (13:04→21:41)
--- NOTE | 2023-01-11 14:44 | CASEMGMT ---
BRENDA CM in to discuss VANG form with patient. RN CM explained VANG form, patient voiced understanding. Pt signed form and filed in chart. Pt provided with a copy of signed VANG form. Patient had no further questions or concerns at this time.
[2023-01-11] MEDS: Acetaminophen 325 MG Tablet 650 MG PO ×2 (15:22→19:37)
--- NOTE | 2023-01-11 16:47 | PCM.CONS.R ---
Assessment & Plan Assessment/Plan (1) ESRD on hemodialysis: PLAN: She has been done on Friday schedule and her last dialysis was yesterday. She does not need any dialysis till Friday, her electrolytes are fine, her fluid status is appropriate. HPI Consult Data Date of Consult: 01/11/23 HPI Narrative Reason for Consultation: ESRD management HPI Narrative: Chalino WHELAN, is a 82 F who presents to the hospital with GI bleeding. That she is a dialysis patient has been on peritoneal dialysis up until October when she developed peritonitis and was switched to hemodialysis via tunneled right IJ hemodialysis catheter in the unit. She is on Friday schedule and her last dialysis was yesterday. Her electrolytes are fine, she is not fluid overloaded, she is not short of breath. [facility] Medical History Acute respiratory failure Albuminuria Asthma Bilateral carotid artery stenosis Chronic anemia Chronic diastolic CHF (congestive heart failure) Chronic kidney disease Esophageal dysphagia ESRD on peritoneal dialysis Essential hypertension GERD (gastroesophageal reflux disease) Glaucoma Hyperlipidemia Hyperparathyroidism, secondary renal Hypothyroidism Leg wound, right Lichenification and lichen simplex chronicus Major depressive disorder Methicillin resistant Staphylococcus epidermidis infection Neurodermatitis Non-proliferative diabetic retinopathy, both eyes Nonobstructive atherosclerosis of coronary artery Normocytic anemia Nummular eczema Obesity Open wound of right forearm 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) Recurrent syncope (03/28/21) Severe protein-calorie malnutrition Skin tear of right forearm without complication Skin tear of right lower leg without complication Stage 3 chronic kidney disease Stenosis of left carotid artery Torsades de pointes (03/28/21) Transient visual loss, right eye (11/2020) Type II diabetes mellitus Ventricular tachycardia Vitamin B 12 deficiency Home Medications atorvastatin 80 mg tablet 80 mg PO QHS CHOLESTEROL 10/12/18 [History Last Taken 10/10/22] omeprazole 40 mg capsule,delayed release 40 mg PO DAILY ACID REFLUX 10/12/18 [History Last Taken 10/10/22] albuterol sulfate 90 mcg/actuation aerosol inhaler 2 puff inhalation Q4H PRN SHORTNESS OF BREATH 10/13/18 [History Last Taken Unknown] montelukast 10 mg tablet 10 mg PO QHS ALLERGIES 10/26/19 [History Last Taken 10/10/22] acetaminophen 325 mg tablet 650 mg PO Q4H PRN pain/fever 05/10/21 [History Last Taken Unknown] ergocalciferol (vitamin D2) 50,000 unit tablet 50,000 unit PO MO SUPPLEMENT 05/10/21 [History Last Taken 10/07/22] ipratropium 0.5 mg-albuterol 3 mg (2.5 mg base)/3 mL nebulization soln 3 ml inhalation Q6H PRN SHORTNESS OF BREATH 05/10/21 [History Last Taken Unknown] fluticasone propionate 110 mcg/actuation HFA aerosol inhaler (Flovent HFA) 1 puff inhalation BID PRN Wheezing 02/08/22 [History Last Taken Unknown] latanoprost 0.005 % eye drops 1 drp ophthalmic (eye) ONCE GLAUCOMA 02/08/22 [History Last Taken Unknown] tiotropium bromide 2.5 mcg/actuation mist for inhalation (Spiriva Respimat) 2 puff inhalation QAM PRN Wheezing 02/08/22 [History Last Taken Unknown] bupropion HCl 100 mg tablet 100 mg PO BID DEPRESSION 08/16/22 [History Last Taken 10/10/22] insulin glargine 100 unit/mL (3 mL) subcutaneous pen (Lantus Solostar U-100 Insulin) 8 unit subcut DAILY BLOOD SUGARS 08/16/22 [History Last Taken 10/10/22] levothyroxine 137 mcg tablet 137 mcg PO MOTUWETH 08/16/22 [History Last Taken 10/10/22] aspirin 81 mg tablet,delayed release (Adult Aspirin Regimen) 81 mg PO DAILY HEART HEALTH 10/11/22 [History Last Taken 10/10/22] calcitriol 0.25 mcg capsule 0.25 mcg PO WEFR 10/11/22 [History Last Taken 10/09/22] calcium acetate(phosphat bind) 667 mg capsule 667 mg PO TID 10/11/22 [History Last Taken Unknown] levothyroxine 137 mcg capsule 205.5 mcg PO SUFRSA THYROID 10/11/22 [History Last Taken 10/06/22] magnesium oxide 400 mg PO DAILY SUPPLEMENT 10/11/22 [History Last Taken 10/10/22] mecobalamin (vitamin B12) 500 mcg chewable tablet 500 mcg PO DAILY SUPPLEMENT 10/11/22 [History Last Taken 10/10/22] pioglitazone 30 mg tablet 30 mg PO DAILY DIABETES 10/11/22 [History Last Taken 10/10/22] meclizine 12.5 mg tablet 12.5 mg PO BID PRN VERTIGO 30 days #0 tabs 10/26/22 [Rx Last Taken 10/10/22] midodrine 5 mg tablet 5 mg PO TIDCM #0 tabs 10/26/22 [Rx Last Taken Unknown] sennosides 8.6 mg-docusate sodium 50 mg tablet (Stool Softener-Stimulant Laxative) 2 tab PO BID PRN PRN CONSTIPATION #0 tabs 10/26/22 [Rx Last Taken Unknown] glucagon 1 mg/mL solution for injection 1 mg subcut Q20M PRN hypoglycemia 11/06/22 [History Last Taken Unknown] Allergy/AdvReac Type Severity Reaction Status Date / Time metformin [From Glucophage] Allergy Severe renal Verified 01/10/23 15:49 failure adhesive Allergy Intermediate blisters Verified 01/10/23 15:49 oxycodone Allergy Intermediate hallucinati Verified 01/10/23 15:49 ons tramadol Allergy Intermediate Vomiting Verified 01/10/23 15:49 metoclopramide [From Reglan] Allergy Mild Nausea Verified 01/10/23 16:43 ERIC Inhibitors AdvReac Intermediate cough Verified 01/10/23 15:49 buspirone [From BuSpar] AdvReac Hallucinati Verified 01/10/23 15:49 ons Family History Father Heart disease Hypertension Suicide Mother Hypertension CVA (cerebral vascular accident) COPD (chronic obstructive pulmonary disease) CAD (coronary artery disease) Surgical History History of bilateral knee replacement (1989) History of breast biopsy History of implantable cardiac defibrillator (ICD) (04/02/21) History of left heart catheterization (03/28/21) History of open reduction and internal fixation (ORIF) procedure History of right cataract extraction (10/03/11) History of temporary cardiac pacemaker treatment (03/28/21) History of tonsillectomy Social History household members: none Smoking Status: Never smoker alcohol intake: never substance use type: does not use caffeine: Yes Type: coffee Number of servings: 2 ROS ROS Narrative 14 point comprehensive system review was performed and all positives as well as pertinent negatives are reflected in current H&P Physical Exam Const General Appearance: well developed Orientation / Consciousness: oriented to person, oriented to place and oriented to time Nutritional Appearance: obese HEENT normocephalic Head and Scalp: atraumatic External Ear: external ears normal Eyes PERRL Neck no lymphadenopathy Resp no use of accessory muscles and clear to auscultation bilaterally Cardio regular rate, no murmurs and no rub GI non-tender and non-distended Auscultation: normoactive bowel sounds no CVA tenderness Neuro CN's II-XII intact bilaterally Psych cooperative Medical Records Data Attestation: I reviewed the patient's medical records Lab / Micro Data Attestation: I reviewed the patient's lab results. 01/11/23 05:30 01/11/23 05:30 Labs: Laboratory Results - last 24 hr 01/10/23 16:10: WBC 20.4 H, RBC 4.14 L, Hgb 13.1, Hct 41.3, MCV 99.8 H, MCH 31.6, MCHC 31.7 L, RDW Std Deviation 63.0 H, RDW Coeff of Alanna 17.4 H, Plt Count 373, MPV 9.9, Immature Gran % (Auto) 1.200 H, Neut % (Auto) 87.3 H, Lymph % (Auto) 5.7 L, [place] % (Auto) 5.5, Eos % (Auto) 0.1, Baso % (Auto) 0.2, Absolute Neuts (auto) 17.8 H, Absolute Lymphs (auto) 1.17, Nucleated RBC % 0, Sodium 133 L, Potassium 4.1, Chloride 96 L, Carbon Dioxide 29.0, Anion Gap 8, BUN 11, Creatinine 2.81 H, Estim Creat Clear Calc 12.05, Est GFR (MDRD) Af Amer 21 L, Est GFR (MDRD) Non-Af 17 L, BUN/Creatinine Ratio 3.9 L, Glucose 138 H, Lactic Acid 2.0, Calcium 8.8, Total Bilirubin 0.40, AST 36, ALT 17, Alkaline Phosphatase 118 H, Total Protein 7.4, Albumin 1.7 L, Globulin 5.7 H, Albumin/Globulin Ratio 0.3 L, Blood Type A POSITIVE, Antibody Screen NEGATIVE 01/10/23 16:57: POC Glucose 120 H 01/10/23 20:50: Lactic Acid 3.4 H* 01/10/23 21:17: Hgb 11.4 L, Hct 35.1 L 01/10/23 22:41: POC Glucose 92 01/11/23 05:30: WBC 20.3 H, RBC 3.50 L, Hgb 11.0 L, Hct 34.1 L, MCV 97.4, MCH 31.4, MCHC 32.3, RDW Std Deviation 61.3 H, RDW Coeff of Alanna 17.4 H, Plt Count 312, MPV 9.6, Immature Gran % (Auto) 0.500, Neut % (Auto) 82.4 H, Lymph % (Auto) 9.6 L, [place] % (Auto) 7.2, Eos % (Auto) 0.1, Baso % (Auto) 0.2, Absolute Neuts (auto) 16.7 H, Absolute Lymphs (auto) 1.95, Nucleated RBC % 0, PT 14.2, INR 1.1, APTT 44.0 H, Sodium 136, Potassium 4.0, Chloride 100, Carbon Dioxide 29.0, Anion Gap 7, BUN 14, Creatinine 3.47 H, Estim Creat Clear Calc 9.76, Est GFR (MDRD) Af Amer 16 L, Est GFR (MDRD) Non-Af 14 L, BUN/Creatinine Ratio 4.0 L, Glucose 92, Hemoglobin A1c 5.5, Lactic Acid 0.6, Calcium 8.5, TSH 61.40 H 01/11/23 05:40: POC Glucose 76 01/11/23 11:47: POC Glucose 67 L Radiology Impression Chest X-Ray 01/10/23 16:40 IMPRESSION: No radiographic evidence of acute cardiopulmonary disease. Electronically Signed: Isaias Jade DO at 17:03 EDT ,
[2023-01-11 17:05] LABS: Bedside Glucose 139 mg/dL (74-106)
[2023-01-11] MEDS: Atorvastatin Calcium 80 MG Tablet PO (19:38)
[2023-01-11] MEDS: Latanoprost 0.005% 1 Bottle 1 DRP OPHTHALMIC (19:39)
[2023-01-11] MEDS: Montelukast 10 MG Tablet PO (19:39)
[2023-01-11] MEDS: 0.9% Saline Lock 10 ML Syringe IV (21:02)
[2023-01-11] MEDS: Insulin Lispro 100 UNIT/ML INSULN.PEN SC (21:47)
[2023-01-11 22:02] LABS: Bedside Glucose 155 mg/dL (74-106)
[2023-01-12 02:42] VITALS: BP 117/42; PULSE 71; RESP 16; TEMP 36.7; O2SAT 93
[2023-01-12] MEDS: Acetaminophen 325 MG Tablet 650 MG PO (06:10)
[2023-01-12] MEDS: Levothyroxine 137 MCG Tablet 205.5 MCG PO (06:13)
[2023-01-12 06:19] LABS: Absolute Lymphocyte Count 1.74 X10^3/uL (0.83-4.51); Absolute Neutrophil Count 15.5 X10^3/uL (2.0-7.7); Basophil# 0.04 X10^3/uL; Basophil% 0.2 % (0-1); Eosinophil# 0.35 X10^3/uL; Eosinophils% 1.9 % (0-5); Hematocrit 30.6 % (37-47); Lymphocyte # 1.74 X10^3/ul (0.83-4.51); Lymphocyte % 9.2 % (19-41); Mean Corp Hgb Conc 32.7 g/dL (32-36); Mean Corpuscular Hgb 32.4 pg (27.0-32.0); Monocyte# 1.13 X10^3/uL; NRBC Flagged by Analyzer 0 % (0-5); Platelet Count 273 K/mm3 (150-450); RBC Distribution Width CV 17.5 % (11.6-14.6); RBC Distribution Width SD 62.5 fl (35.1-43.9); Red Blood Count 3.09 M/mm3 (4.2-5.4); White Blood Count 18.9 K/mm3 (4.4-11.0)
[2023-01-12 06:36] LABS: Bedside Glucose 97 mg/dL (74-106)
[2023-01-12 07:10] LABS: Anion Gap 9 (5-15); BUN 20 mg/dL (7-18); BUN/Creat Ratio 4.7 RATIO (10-20); Calcium,Total 8.4 mg/dL (8.5-10.1); Chloride 98 mmol/L (98-107); EST Glomerular Filtration Rate 11 mL/min (>60); Est Glom Filt Rate - Afr Amer 13 mL/min (>60); Estimated Creatinine Clearance 7.87 ml/min; Glucose 104 mg/dL (74-106); Magnesium 1.9 mg/dL (1.6-2.6); Phosphorus 2.8 mg/dL (2.5-4.9); Potassium 3.7 mmol/L (3.5-5.1); Sodium Level 134 mmol/L (136-145)
[2023-01-12 07:15] VITALS: PULSE 75; RESP 18
[2023-01-12] MEDS: Budesonide Respules 0.5 MG/2 ML AMPUL.NEB. INHALATION ×2 (07:15→19:37)
--- NOTE | 2023-01-12 07:42 | PCM.PN.HOSP ---
Reason for Visit Reason for Visit: Diagnoses Gastrointestinal hemorrhage, unspecified (01/10/23) End stage renal disease (01/10/23) Dependence on renal dialysis (01/10/23) Subjective Subjective Patient underwent EGD today prior findings and recommendation are as Impressions : - Rosalina-Otto tear. Injected. Treated with a heater probe. - Medium-sized hiatal hernia. - A single gastroesophageal junction polyp. - Oozing gastric ulcers with pigmented material. Treated with a heater probe. - No gross lesions in the duodenal bulb. - No specimens collected. Recommendations : - [facility]. - Full liquid diet. - Continue present medications. -Consider scopolamine patch 1.5 mg every 72 hours for nausea associated with dialysis. Hold for sedation, dry mouth, dry eyes and constipation. Objective Data Objective Data Vital Signs: Vital Signs Temp Pulse Resp BP Pulse Ox O2 Del Method O2 Flow Rate 98.1 F 71 16 117/42 L 93 Room Air 2 01/12/23 02:42 01/12/23 02:42 01/12/23 02:42 01/12/23 02:42 01/12/23 02:42 01/12/23 02:42 01/10/23 17:10 Oxygen Flow Rate (L/min) 2 Oxygen Delivery Method Room Air Weight: 93 kg Body Mass Index (BMI) 38.7 Intake & Output: Intake and Output for Last 24 Hours 01/10/23 01/11/23 01/12/23 23:59 23:59 23:59 Intake Total 147 / 147 844 / 844 100 / 100 Balance 147 / 147 844 / 844 100 / 100 Lab / Micro Data 01/12/23 05:20 01/12/23 05:20 Labs: Laboratory Results - last 24 hr 01/11/23 05:30: Hemoglobin A1c 5.5 01/11/23 11:47: POC Glucose 67 L 01/11/23 16:41: POC Glucose 139 H 01/11/23 21:44: POC Glucose 155 H 01/12/23 05:20: WBC 18.9 H, RBC 3.09 L, Hgb 10.0 L, Hct 30.6 L, MCV 99.0, MCH 32.4 H, MCHC 32.7, RDW Std Deviation 62.5 H, RDW Coeff of Alanna 17.5 H, Plt Count 273, MPV 10.0, Immature Gran % (Auto) 0.700, Neut % (Auto) 82.0 H, Lymph % (Auto) 9.2 L, [place] % (Auto) 6.0, Eos % (Auto) 1.9, Baso % (Auto) 0.2, Absolute Neuts (auto) 15.5 H, Absolute Lymphs (auto) 1.74, Nucleated RBC % 0, Sodium 134 L, Potassium 3.7, Chloride 98, Carbon Dioxide 27.0, Anion Gap 9, BUN 20 H, Creatinine 4.30 H, Estim Creat Clear Calc 7.87, Est GFR (MDRD) Af Amer 13 L, Est GFR (MDRD) Non-Af 11 L, BUN/Creatinine Ratio 4.7 L, Glucose 104, Calcium 8.4 L, Phosphorus 2.8, Magnesium 1.9 01/12/23 06:08: POC Glucose 97 Physical Exam Narrative GENERAL: cooperative HEENT: Atraumatic; normocephalic EYES; Anicteric, Normal Conjunctiva NECK; supple, normal thyroid, RESPIRATORY: Diminished to auscultation CARDIOVASCULAR: Regular S1 S2, GI: soft, normoactive bowel sounds, : No Renal angle tenderness; EXTREMITIES: No edema, no clubbing, MUSCULOSKELETAL: no muscle wasting NEURO: Awake; no lateralizing signs. SKIN: No Rash PSYCH; Flat affect Assessment & Plan Assessment/Plan (1) Acute upper gastrointestinal bleeding: PLAN: Plan Patient is an 82-year-old female with history of end-stage renal disease on hemodialysis who presented with hematemesis and suspected aspiration pneumonitis 1. Acute upper GI bleed -Patient presented with hematemesis started on Protonix drip admitted to regular nursing floor with consultation placed to GI -Patient underwent EGD today prior findings and recommendation are as Impressions : - Rosalina-Otto tear. Injected. Treated with a heater probe. - Medium-sized hiatal hernia. - A single gastroesophageal junction polyp. - Oozing gastric ulcers with pigmented material. Treated with a heater probe. - No gross lesions in the duodenal bulb. - No specimens collected. Recommendations : - [facility]. - Full liquid diet. - Continue present medications. -Consider scopolamine patch 1.5 mg every 72 hours for nausea associated with dialysis. Hold for sedation, dry mouth, dry eyes and constipation. 3. Aspiration pneumonitis ?Patient was started on Unasyn given her persistent leukocytosis 3. End-stage renal disease ? Patient is on hemodialysis. Nephrology consulted for dialysis orders 4. Hypothyroidism - Patient is on levothyroxine home dose continued 5. Hypertension - Blood pressure controlled, home medications continued with dose adjustment as needed 6. Diabetes mellitus type 2 ? With complications including diabetic nephropathy patient is on Actos held please on Accu-Cheks before meals and at bedtime 7. 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 Chronic congestive heart failure with preserved ejection fraction ? Echo from 08/18/2021 demonstrated EF of 65%. Patient remains stable 9. Dyslipidemia -Patient is on statin therapy, continued at home dose 10. GERD ? On PPI 11. Depression with anxiety ? Stable on bupropion continue 12. Class II obesity with BMI of 38.7 ? Complicating care weight loss advised 13. DVT prophylaxis ? SCDs ; chemoprophylaxis contraindicated given patient presentation Time spent in the patient's overall evaluation,decision-making process, review of diagnostic data, adjustment of management, discussion with other providers, nursing nursing and ancillary staff involved in patient's care documentation, 35 minutes Charges/Coding Visit Charges Inpatient E&M: 11669 Subs Hosp L2
[2023-01-12 07:47] VITALS: BP 112/39; PULSE 78; RESP 16; TEMP 37.2; O2SAT 95
[2023-01-12] MEDS: Calcium Acetate 667 MG Capsule PO ×3 (08:00→16:20)
[2023-01-12] MEDS: Midodrine HCl 5 MG Tablet PO ×3 (08:00→16:20)
[2023-01-12] MEDS: Pantoprazole Sodium 40 MG in 0.9% Normal Saline (100mL MB+) 100 ML 330 MG IV ×2 (09:24→20:40)
[2023-01-12] MEDS: buPROPion 100 MG Tablet PO ×2 (09:25→21:17)
[2023-01-12] MEDS: Ampicillin/Sulbactam 3 GM in 0.9% Normal Saline (100mL MB+) 100 ML IV ×2 (10:19→21:13)
[2023-01-12 11:50] LABS: Bedside Glucose 91 mg/dL (74-106)
[2023-01-12 14:13] VITALS: BP 108/48; PULSE 68; RESP 16; TEMP 36.4; O2SAT 94
[2023-01-12 16:47] LABS: Bedside Glucose 142 mg/dL (74-106)
[2023-01-12 19:40] VITALS: PULSE 76; RESP 20
[2023-01-12 20:30] VITALS: BP 109/35; PULSE 70; RESP 16; TEMP 37; O2SAT 93
[2023-01-12] MEDS: Ondansetron 4 MG/2 ML Vial IV (20:47)
[2023-01-12] MEDS: Latanoprost 0.005% 1 Bottle 1 DRP OPHTHALMIC (21:16)
[2023-01-12] MEDS: Atorvastatin Calcium 80 MG Tablet PO (21:17)
[2023-01-12] MEDS: Montelukast 10 MG Tablet PO (21:17)
[2023-01-12 22:50] LABS: Bedside Glucose 112 mg/dL (74-106)
[2023-01-13] VITALS (15 sets, daily range): BP systolic 99–232; BP diastolic 40–73; PULSE 72–86; RESP 12–20; TEMP 36.4–37; O2SAT 94–100; BMI 38.7; BMI 38.5
[2023-01-13] MEDS: Levothyroxine 137 MCG Tablet PO (05:51)
[2023-01-13 06:51] LABS: Absolute Lymphocyte Count 2.17 X10^3/uL (0.83-4.51); Absolute Neutrophil Count 12.5 X10^3/uL (2.0-7.7); Basophil# 0.05 X10^3/uL; Basophil% 0.3 % (0-1); Eosinophil# 0.32 X10^3/uL; Hematocrit 35.4 % (37-47); Hemoglobin 11.3 g/dL (12.0-15.0); Lymphocyte # 2.17 X10^3/ul (0.83-4.51); Lymphocyte % 13.5 % (19-41); Mean Corp Hgb Conc 31.9 g/dL (32-36); Mean Corpuscular Hgb 31.8 pg (27.0-32.0); Mean Corpuscular Volume 99.7 fL (81-99); Mean Platelet Vol. 10.2 fl (6.2-12.0); Monocyte# 0.94 X10^3/uL; Monocyte% 5.8 % (0-10); NRBC Flagged by Analyzer 0 % (0-5); Neutrophil # 12.46 X10^3/uL (2.7-7.7); Neutrophil % 77.5 % (47-70); Platelet Count 280 K/mm3 (150-450); RBC Distribution Width CV 17.2 % (11.6-14.6); RBC Distribution Width SD 63.1 fl (35.1-43.9); Red Blood Count 3.55 M/mm3 (4.2-5.4); White Blood Count 16.1 K/mm3 (4.4-11.0)
[2023-01-13] MEDS: Budesonide Respules 0.5 MG/2 ML AMPUL.NEB. INHALATION ×2 (07:18→19:19)
[2023-01-13 07:22] LABS: Anion Gap 8 (5-15); BUN 26 mg/dL (7-18); BUN/Creat Ratio 5.2 RATIO (10-20); Calcium,Total 8.8 mg/dL (8.5-10.1); Chloride 98 mmol/L (98-107); EST Glomerular Filtration Rate 9 mL/min (>60); Est Glom Filt Rate - Afr Amer 11 mL/min (>60); Estimated Creatinine Clearance 6.77 ml/min; Glucose 78 mg/dL (74-106); Sodium Level 132 mmol/L (136-145)
[2023-01-13 08:05] LABS: Bedside Glucose 74 mg/dL (74-106)
[2023-01-13] MEDS: Midodrine HCl 5 MG Tablet PO ×3 (08:17→17:10)
[2023-01-13] MEDS: 0.9% Saline Lock 10 ML Syringe IV ×4 (08:17→20:52)
[2023-01-13] MEDS: buPROPion 100 MG Tablet PO ×2 (08:17→21:23)
[2023-01-13] MEDS: Calcium Acetate 667 MG Capsule PO ×3 (08:17→17:10)
[2023-01-13] MEDS: Pantoprazole Sodium 40 MG in 0.9% Normal Saline (100mL MB+) 100 ML 330 MG IV ×2 (08:20→20:51)
--- NOTE | 2023-01-13 08:30 | WOUNDNOTE ---
wound photo: right lateral forearm
--- NOTE | 2023-01-13 08:48 | WOUNDNOTE ---
wound photo: right 2nd toe
[2023-01-13] MEDS: Ampicillin/Sulbactam 3 GM in 0.9% Normal Saline (100mL MB+) 100 ML IV (09:54)
--- NOTE | 2023-01-13 10:04 | CASEMGMT ---
Social Work Pt informed admitting RN thinks has POA and will have document brought in, states Darek Banegas and Lydia Haas are POAs. Pt does not have LW. YULIA Mann
--- NOTE | 2023-01-13 10:52 | PCM.PN.HOSP ---
Reason for Visit Reason for Visit: Diagnoses Gastrointestinal hemorrhage, unspecified (01/12/23) End stage renal disease (01/12/23) Dependence on renal dialysis (01/12/23) Subjective Subjective Patient to be advanced to regular renal diet Objective Data Objective Data Vital Signs: Vital Signs Temp Pulse Resp BP Pulse Ox O2 Del Method O2 Flow Rate 97.8 F 72 16 127/45 H 100 Room Air 2 01/13/23 08:20 01/13/23 08:20 01/13/23 08:20 01/13/23 08:20 01/13/23 08:20 01/13/23 08:20 01/10/23 17:10 Oxygen Flow Rate (L/min) 2 Oxygen Delivery Method Room Air Weight: 93 kg Body Mass Index (BMI) 38.7 Intake & Output: Intake and Output for Last 24 Hours 01/11/23 01/12/23 01/13/23 23:59 23:59 23:59 Intake Total 844 / 844 544 / 669 235 / 235 Balance 844 / 844 544 / 669 235 / 235 Lab / Micro Data 01/13/23 05:40 01/13/23 05:40 Labs: Laboratory Results - last 24 hr 01/12/23 11:23: POC Glucose 91 01/12/23 16:18: POC Glucose 142 H 01/12/23 21:21: POC Glucose 112 H 01/13/23 05:40: WBC 16.1 H, RBC 3.55 L, Hgb 11.3 L, Hct 35.4 L, MCV 99.7 H, MCH 31.8, MCHC 31.9 L, RDW Std Deviation 63.1 H, RDW Coeff of Alanna 17.2 H, Plt Count 280, MPV 10.2, Immature Gran % (Auto) 0.900, Neut % (Auto) 77.5 H, Lymph % (Auto) 13.5 L, [place] % (Auto) 5.8, Eos % (Auto) 2.0, Baso % (Auto) 0.3, Absolute Neuts (auto) 12.5 H, Absolute Lymphs (auto) 2.17, Nucleated RBC % 0, Sodium 132 L, Potassium 4.0, Chloride 98, Carbon Dioxide 26.0, Anion Gap 8, BUN 26 H, Creatinine 5.00 H, Estim Creat Clear Calc 6.77, Est GFR (MDRD) Af Amer 11 L, Est GFR (MDRD) Non-Af 9 L, BUN/Creatinine Ratio 5.2 L, Glucose 78, Calcium 8.8 01/13/23 06:56: POC Glucose 74 Micro: Microbiology 01/10/23 17:17 Blood Culture (Wb) - Anticubital Right Blood Culture - Preliminary No growth in 48 hours. 01/10/23 17:27 Blood Culture (Wb) - Anticubital Left Blood Culture - Preliminary No growth in 48 hours. Physical Exam Narrative GENERAL: cooperative HEENT: Atraumatic; normocephalic EYES; Anicteric, Normal Conjunctiva NECK; supple, normal thyroid, RESPIRATORY: Diminished to auscultation CARDIOVASCULAR: Regular S1 S2, GI: soft, normoactive bowel sounds, : No Renal angle tenderness; EXTREMITIES: No edema, no clubbing, MUSCULOSKELETAL: no muscle wasting NEURO: Awake; no lateralizing signs. SKIN: No Rash PSYCH; Flat affect Assessment & Plan Assessment/Plan (1) Acute upper gastrointestinal bleeding: PLAN: Plan Patient is an 82-year-old female with history of end-stage renal disease on hemodialysis who presented with hematemesis and suspected aspiration pneumonitis 1. Acute upper GI bleed -Patient presented with hematemesis started on Protonix drip admitted to regular nursing floor with consultation placed to GI -Patient underwent EGD today prior findings and recommendation are as Impressions : - Rosalina-Otto tear. Injected. Treated with a heater probe. - Medium-sized hiatal hernia. - A single gastroesophageal junction polyp. - Oozing gastric ulcers with pigmented material. Treated with a heater probe. - No gross lesions in the duodenal bulb. - No specimens collected. Recommendations : - [facility]. - Full liquid diet. - Continue present medications. -Consider scopolamine patch 1.5 mg every 72 hours for nausea associated with dialysis. Hold for sedation, dry mouth, dry eyes and constipation. - 01/13/2023; Patient to be started on regular renal diet 3. Aspiration pneumonitis ?Patient was started on Unasyn given her persistent leukocytosis 3. End-stage renal disease ? Patient is on hemodialysis. Nephrology consulted for dialysis orders 4. Hypothyroidism - Patient is on levothyroxine home dose continued 5. Hypertension - Blood pressure controlled, home medications continued with dose adjustment as needed 6. Diabetes mellitus type 2 ? With complications including diabetic nephropathy patient is on Actos held please on Accu-Cheks before meals and at bedtime 7. 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 Chronic congestive heart failure with preserved ejection fraction ? Echo from 08/18/2021 demonstrated EF of 65%. Patient remains stable 9. Dyslipidemia -Patient is on statin therapy, continued at home dose 10. GERD ? On PPI 11. Depression with anxiety ? Stable on bupropion continue 12. Class II obesity with BMI of 38.7 ? Complicating care weight loss advised 13. DVT prophylaxis ? SCDs ; chemoprophylaxis contraindicated given patient presentation Time spent in the patient's overall evaluation,decision-making process, review of diagnostic data, adjustment of management, discussion with other providers, nursing nursing and ancillary staff involved in patient's care documentation, 35 minutes Charges/Coding Visit Charges Inpatient E&M: 43080 Subs Hosp L2
--- NOTE | 2023-01-13 10:56 | PN.RENAL_ITS ---
Subjective Subjective Sitting up in bed. No overnight events. Finishing breakfast. Denies any nausea. Objective Data Objective Data Vital Signs: Vital Signs Temp Pulse Resp BP Pulse Ox O2 Del Method O2 Flow Rate 97.8 F 72 16 127/45 H 100 Room Air 2 01/13/23 08:20 01/13/23 08:20 01/13/23 08:20 01/13/23 08:20 01/13/23 08:20 01/13/23 08:20 01/10/23 17:10 Oxygen Flow Rate (L/min) 2 Oxygen Delivery Method Room Air Weight: 93 kg Body Mass Index (BMI) 38.7 Intake & Output: Intake and Output for Last 24 Hours 01/11/23 01/12/23 01/13/23 23:59 23:59 23:59 Intake Total 844 / 844 544 / 669 235 / 235 Balance 844 / 844 544 / 669 235 / 235 Lab / Micro Data 01/13/23 05:40 01/13/23 05:40 Labs: Laboratory Results - last 24 hr 01/12/23 11:23: POC Glucose 91 01/12/23 16:18: POC Glucose 142 H 01/12/23 21:21: POC Glucose 112 H 01/13/23 05:40: WBC 16.1 H, RBC 3.55 L, Hgb 11.3 L, Hct 35.4 L, MCV 99.7 H, MCH 31.8, MCHC 31.9 L, RDW Std Deviation 63.1 H, RDW Coeff of Alanna 17.2 H, Plt Count 280, MPV 10.2, Immature Gran % (Auto) 0.900, Neut % (Auto) 77.5 H, Lymph % (Auto) 13.5 L, [place] % (Auto) 5.8, Eos % (Auto) 2.0, Baso % (Auto) 0.3, Absolute Neuts (auto) 12.5 H, Absolute Lymphs (auto) 2.17, Nucleated RBC % 0, Sodium 132 L, Potassium 4.0, Chloride 98, Carbon Dioxide 26.0, Anion Gap 8, BUN 26 H, Creatinine 5.00 H, Estim Creat Clear Calc 6.77, Est GFR (MDRD) Af Amer 11 L, Est GFR (MDRD) Non-Af 9 L, BUN/Creatinine Ratio 5.2 L, Glucose 78, Calcium 8.8 01/13/23 06:56: POC Glucose 74 Micro: Microbiology 01/10/23 17:17 Blood Culture (Wb) - Anticubital Right Blood Culture - Preliminary No growth in 48 hours. 01/10/23 17:27 Blood Culture (Wb) - Anticubital Left Blood Culture - Preliminary No growth in 48 hours. Physical Exam Narrative Alert and oriented x3, no apparent distress S1, S2, RRR Lung sounds clear anteriorly and posteriorly. No wheezes rhonchi or rales noted Abdomen soft, nontender No edema Tunneled HD catheter dressing clean, dry and intact Assessment & Plan Assessment/Plan (1) ESRD on hemodialysis: PLAN: - ESRD on hemodialysis Friday schedule. EDW 91.5 kg. Patient to undergo hemodialysis today and attempt fluid removal as patient/blood pressure tolerates. Patient appears near euvolemic likely not much ultrafiltration with dialysis today -Acute upper GI bleed; patient had EGD with findings of oozing gastric ulcers. On PPI drip, scopolamine patch. Started regular/renal diet today. -Hemoglobin stable, at goal - bps stable, continue midodrine
--- NOTE | 2023-01-13 11:25 | CASEMGMT ---
BRENDA INFANTE Assessment: Face to Face with pt for initial transition planning/care coordination assessment. BRENDA INFANTE introduced self and role at [facility], pt voices understanding and consents to assessment. Pt is A&O x4 and answers all questions appropriately at this time. Pt is sitting up in bed in no distress. Care providers, pharmacy, and demographics verified/updated. Admitting Dx: OSMIN PCP:Shana Specialists:KAMI cardio; Yamile, nephro Preferred Pharmacy: [facility] Insurance: [employer] [facility] Prescription Benefit: yes LNOK: Lydia Haas, dtr; Darek Banegas, son Living Arrangements: Pt lives alone in a 3 story home with 3 steps to enter without a rail. Pt reports she does not use all levels any longer since she cannot walk. Pt reports her dtr lives next door and assists with ADL and IADL's. Transportation: Pt family provides transportation. DME:grab bars, shower chair, bp cuff, 2 w/c, cane, FWW, BGM with sufficient supply of strips and lancets HHC/SNF: Pt is active with [facility] HHC OT only. Pt has been to [facility] and [facility] in the past. Pt states she just got out of [facility] a couple of weeks ago. Pt states no concerns with going home at time of dc. Pt became tearful during questions in the assessment. Pt states she is frustrated that she cannot walk and do things. Noted pt 6 clicks =14, therapy ordered. Pt gets dialysis at [facility] M/W/F with chair time of 1150. Pt has a small wound to her toe and she states her dtr in law dresses this for her. Pt states no further concerns/needs. CM to follow. Advised pt to ask CM if any further question/concerns/needs arise, voices understanding. Pt Goal: Home with HHC resuming Plan: Home with HHC resuming and adding additional services vs SNF.
[2023-01-13] MEDS: PureFlow B 3K Dialysis Soln 1 BAG 6 BAG PF (12:28)
[2023-01-13] MEDS: 0.9% Normal Saline 1,000 ML IV.SOLN. 1000 ML OPERA.SITE (12:30)
[2023-01-13 12:31] LABS: Bedside Glucose 88 mg/dL (74-106)
--- NOTE | 2023-01-13 14:11 | EX.PCM.PN.GI ---
Subjective Subjective Patient says that her nausea is a lot better. She is tolerating a regular diet. She is doing very well with the scopolamine patch and PPI therapy. Objective Data Objective Data Vital Signs: Vital Signs Temp Pulse Resp BP Pulse Ox O2 Del Method O2 Flow Rate 97.8 F 74 13 125/44 H 98 Room Air 2 01/13/23 08:20 01/13/23 13:57 01/13/23 13:57 01/13/23 13:57 01/13/23 11:45 01/13/23 13:57 01/10/23 17:10 Oxygen Flow Rate (L/min) 2 Oxygen Delivery Method Room Air Weight: 205 lb 0.478 oz Body Mass Index (BMI) 38.7 Intake & Output: Intake and Output for Last 24 Hours 01/11/23 01/12/23 01/13/23 23:59 23:59 23:59 Intake Total 844 / 844 544 / 669 587 / 587 Balance 844 / 844 544 / 669 587 / 587 Lab / Micro Data 01/13/23 05:40 01/13/23 05:40 Labs: Laboratory Results - last 24 hr 01/12/23 16:18: POC Glucose 142 H 01/12/23 21:21: POC Glucose 112 H 01/13/23 05:40: WBC 16.1 H, RBC 3.55 L, Hgb 11.3 L, Hct 35.4 L, MCV 99.7 H, MCH 31.8, MCHC 31.9 L, RDW Std Deviation 63.1 H, RDW Coeff of Alanna 17.2 H, Plt Count 280, MPV 10.2, Immature Gran % (Auto) 0.900, Neut % (Auto) 77.5 H, Lymph % (Auto) 13.5 L, [place] % (Auto) 5.8, Eos % (Auto) 2.0, Baso % (Auto) 0.3, Absolute Neuts (auto) 12.5 H, Absolute Lymphs (auto) 2.17, Nucleated RBC % 0, Sodium 132 L, Potassium 4.0, Chloride 98, Carbon Dioxide 26.0, Anion Gap 8, BUN 26 H, Creatinine 5.00 H, Estim Creat Clear Calc 6.77, Est GFR (MDRD) Af Amer 11 L, Est GFR (MDRD) Non-Af 9 L, BUN/Creatinine Ratio 5.2 L, Glucose 78, Calcium 8.8 01/13/23 06:56: POC Glucose 74 01/13/23 12:13: POC Glucose 88 Micro: Microbiology 01/10/23 17:17 Blood Culture (Wb) - Anticubital Right Blood Culture - Preliminary No growth in 48 hours. 01/10/23 17:27 Blood Culture (Wb) - Anticubital Left Blood Culture - Preliminary No growth in 48 hours. Physical Exam Narrative Alert and oriented x3, no apparent distress S1, S2, RRR Lung sounds clear anteriorly and posteriorly. No wheezes rhonchi or rales noted Abdomen soft, nontender No edema Tunneled HD catheter dressing clean, dry and intact Assessment & Plan Assessment/Plan (1) Acute upper gastrointestinal bleeding: PLAN: Plan 82-year-old with history of end-stage renal disease on hemodialysis who has frequent admissions for intractable nausea and vomiting thought to be secondary to hemodialysis. She presented with hematemesis. She underwent an upper endoscopy and was discovered to have a Rosalina-Otto tear which was treated endoscopically. She also had a inflammatory gastroesophageal polyp that was not treated endoscopically. I started her on scopolamine patch after the procedure and she is actually doing very well and her nausea is minimal. She has mild nausea after eating but she is able to keep food down. Recommendations are continue current medical therapy. Charges/Coding Visit Charges Inpatient E&M: [address] [facility] Hosp L3
[2023-01-13 17:29] LABS: Bedside Glucose 131 mg/dL (74-106)
[2023-01-13] MEDS: Ondansetron 4 MG/2 ML Vial IV (18:21)
[2023-01-13] MEDS: Montelukast 10 MG Tablet PO (21:23)
[2023-01-13] MEDS: Atorvastatin Calcium 80 MG Tablet PO (21:23)
[2023-01-13] MEDS: Latanoprost 0.005% 1 Bottle 1 DRP OPHTHALMIC (21:23)
[2023-01-13 22:50] LABS: Bedside Glucose 147 mg/dL (74-106)
[2023-01-14 03:05] VITALS: BP 144/45; PULSE 75; RESP 17; TEMP 36.6; O2SAT 95
[2023-01-14] MEDS: Levothyroxine 137 MCG Tablet PO (06:32)
[2023-01-14 06:58] LABS: Bedside Glucose 105 mg/dL (74-106)
[2023-01-14 07:02] LABS: Absolute Lymphocyte Count 1.73 X10^3/uL (0.83-4.51); Basophil# 0.06 X10^3/uL; Basophil% 0.5 % (0-1); Eosinophil# 0.26 X10^3/uL; Eosinophils% 2.2 % (0-5); Hematocrit 33.2 % (37-47); Hemoglobin 10.4 g/dL (12.0-15.0); Lymphocyte # 1.73 X10^3/ul (0.83-4.51); Lymphocyte % 14.3 % (19-41); Mean Corp Hgb Conc 31.3 g/dL (32-36); Mean Corpuscular Hgb 31.2 pg (27.0-32.0); Mean Corpuscular Volume 99.7 fL (81-99); Mean Platelet Vol. 10.4 fl (6.2-12.0); Monocyte% 7.4 % (0-10); NRBC Flagged by Analyzer 0 % (0-5); Neutrophil # 8.99 X10^3/uL (2.7-7.7); Neutrophil % 74.4 % (47-70); Platelet Count 287 K/mm3 (150-450); RBC Distribution Width CV 17.4 % (11.6-14.6); RBC Distribution Width SD 62.8 fl (35.1-43.9); Red Blood Count 3.33 M/mm3 (4.2-5.4); White Blood Count 12.1 K/mm3 (4.4-11.0)
[2023-01-14 07:04] VITALS: PULSE 76; RESP 20
[2023-01-14] MEDS: Budesonide Respules 0.5 MG/2 ML AMPUL.NEB. INHALATION (07:04)
[2023-01-14] MEDS: Albuterol 2.5 MG/3 ML VIAL.NEB. INHALATION (07:04)
[2023-01-14 07:28] LABS: Anion Gap 7 (5-15); BUN 21 mg/dL (7-18); BUN/Creat Ratio 4.9 RATIO (10-20); Calcium,Total 8.5 mg/dL (8.5-10.1); Chloride 102 mmol/L (98-107); Creatinine, Serum 4.28 mg/dL (0.55-1.02); EST Glomerular Filtration Rate 11 mL/min (>60); Est Glom Filt Rate - Afr Amer 13 mL/min (>60); Estimated Creatinine Clearance 7.91 ml/min; Glucose 98 mg/dL (74-106); Potassium 4.1 mmol/L (3.5-5.1); Sodium Level 135 mmol/L (136-145)
--- NOTE | 2023-01-14 07:32 | PCM.PN.HOSP ---
Reason for Visit Reason for Visit: Diagnoses Gastrointestinal hemorrhage, unspecified (01/12/23) End stage renal disease (01/12/23) Dependence on renal dialysis (01/12/23) Subjective Subjective Seen, tolerating oral diet. She complains of not having had a bowel movement for almost 4 days. Patient was seen in consultation by physical therapy recommended transfer to detention facility. Plan is to have a discussion with the family Objective Data Objective Data Vital Signs: Vital Signs Temp Pulse Resp BP Pulse Ox O2 Del Method O2 Flow Rate 97.9 F 76 20 H 144/45 H 95 Room Air 2 01/14/23 03:05 01/14/23 07:04 01/14/23 07:04 01/14/23 03:05 01/14/23 03:05 01/14/23 03:05 01/10/23 17:10 Oxygen Flow Rate (L/min) 2 Oxygen Delivery Method Room Air Weight: 92.4 kg Body Mass Index (BMI) 38.5 Intake & Output: Intake and Output for Last 24 Hours 01/12/23 01/13/23 01/14/23 23:59 23:59 23:59 Intake Total 544 / 669 937 / 937 Output Total 600 / 600 0 / 0 Balance 544 / 669 337 / 337 0 / 0 Lab / Micro Data 01/14/23 06:15 01/14/23 06:15 Labs: Laboratory Results - last 24 hr 01/13/23 06:56: POC Glucose 74 01/13/23 12:13: POC Glucose 88 01/13/23 17:07: POC Glucose 131 H 01/13/23 21:22: POC Glucose 147 H 01/14/23 06:15: WBC 12.1 H, RBC 3.33 L, Hgb 10.4 L, Hct 33.2 L, MCV 99.7 H, MCH 31.2, MCHC 31.3 L, RDW Std Deviation 62.8 H, RDW Coeff of Alanna 17.4 H, Plt Count 287, MPV 10.4, Immature Gran % (Auto) 1.200 H, Neut % (Auto) 74.4 H, Lymph % (Auto) 14.3 L, [place] % (Auto) 7.4, Eos % (Auto) 2.2, Baso % (Auto) 0.5, Absolute Neuts (auto) 9.0 H, Absolute Lymphs (auto) 1.73, Nucleated RBC % 0, Sodium 135 L, Potassium 4.1, Chloride 102, Carbon Dioxide 26.0, Anion Gap 7, BUN 21 H, Creatinine 4.28 H, Estim Creat Clear Calc 7.91, Est GFR (MDRD) Af Amer 13 L, Est GFR (MDRD) Non-Af 11 L, BUN/Creatinine Ratio 4.9 L, Glucose 98, Calcium 8.5 01/14/23 06:32: POC Glucose 105 Micro: Microbiology 01/10/23 17:17 Blood Culture (Wb) - Anticubital Right Blood Culture - Preliminary No growth in 48 hours. 01/10/23 17:27 Blood Culture (Wb) - Anticubital Left Blood Culture - Preliminary No growth in 48 hours. Physical Exam Narrative GENERAL: cooperative HEENT: Atraumatic; normocephalic EYES; Anicteric, Normal Conjunctiva NECK; supple, normal thyroid, RESPIRATORY: Diminished to auscultation CARDIOVASCULAR: Regular S1 S2, GI: soft, normoactive bowel sounds, : No Renal angle tenderness; EXTREMITIES: No edema, no clubbing, MUSCULOSKELETAL: no muscle wasting NEURO: Awake; no lateralizing signs. SKIN: No Rash PSYCH; Flat affect Assessment & Plan Assessment/Plan (1) Acute upper gastrointestinal bleeding: PLAN: Plan Patient is an 82-year-old female with history of end-stage renal disease on hemodialysis who presented with hematemesis and suspected aspiration pneumonitis 1. Acute upper GI bleed -Patient presented with hematemesis started on Protonix drip admitted to regular nursing floor with consultation placed to GI -Patient underwent EGD today prior findings and recommendation are as Impressions : - Rosalina-Otto tear. Injected. Treated with a heater probe. - Medium-sized hiatal hernia. - A single gastroesophageal junction polyp. - Oozing gastric ulcers with pigmented material. Treated with a heater probe. - No gross lesions in the duodenal bulb. - No specimens collected. Recommendations : - [facility] for [facility]. - Full liquid diet. - Continue present medications. -Consider scopolamine patch 1.5 mg every 72 hours for nausea associated with dialysis. Hold for sedation, dry mouth, dry eyes and constipation. - 01/13/2023; Patient to be started on regular renal diet 3. Aspiration pneumonitis ?Patient was started on Unasyn given her persistent leukocytosis 3. End-stage renal disease ? Patient is on hemodialysis. Nephrology consulted for dialysis orders 4. Hypothyroidism - Patient is on levothyroxine home dose continued 5. Hypertension - Blood pressure controlled, home medications continued with dose adjustment as needed 6. Diabetes mellitus type 2 ? With complications including diabetic nephropathy patient is on Actos held please on Accu-Cheks before meals and at bedtime 7. 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 Chronic congestive heart failure with preserved ejection fraction ? Echo from 08/18/2021 demonstrated EF of 65%. Patient remains stable 9. Dyslipidemia -Patient is on statin therapy, continued at home dose 10. GERD ? On PPI 11. Depression with anxiety ? Stable on bupropion continue 12. Class II obesity with BMI of 38.7 ? Complicating care weight loss advised 13. DVT prophylaxis ? SCDs ; chemoprophylaxis contraindicated given patient presentation 14. Physical deconditioning - Requested for PT OT eval and [employer] school social worker to assist with discharge planning 10. Constipation ? Started on senna Time spent in the patient's overall evaluation,decision-making process, review of diagnostic data, adjustment of management, discussion with other providers, nursing nursing and ancillary staff involved in patient's care documentation, 35 minutes Charges/Coding Visit Charges Inpatient E&M: 07383 Subs Hosp L2
[2023-01-14] MEDS: Calcium Acetate 667 MG Capsule PO ×2 (08:36→11:16)
[2023-01-14] MEDS: buPROPion 100 MG Tablet PO (08:37)
[2023-01-14] MEDS: Midodrine HCl 5 MG Tablet PO ×2 (08:37→11:16)
[2023-01-14 08:53] VITALS: RESP 18
[2023-01-14] MEDS: Pantoprazole Sodium 40 MG in 0.9% Normal Saline (100mL MB+) 100 ML 330 MG IV (09:06)
[2023-01-14] MEDS: 0.9% Saline Lock 10 ML Syringe IV (09:07)
--- NOTE | 2023-01-14 09:08 | CASEMGMT ---
RN CM into pt room to discuss dc planning. Pt states she is aware that the recommendation is not to go home but she is going home. Discussed [facility] services to be ordered. Pt tearful with conversation. Pt states that she would have to go to dialysis in a van if she went to a SNF, discussed [facility] who does dialysis on site. Pt still denies needing a SNF. VLADIMIR order entered and updated [facility] at [facility]. Pt denies need for list of other options for agencies.
[2023-01-14] MEDS: Ampicillin/Sulbactam 3 GM in 0.9% Normal Saline (100mL MB+) 100 ML IV (09:34)
--- NOTE | 2023-01-14 09:49 | CASEMGMT ---
Discharge Planning Referral sent to [facility] Sravani Linares, Discharge Planning Asst.
--- NOTE | 2023-01-14 10:00 | PN.GI_ITS ---
Subjective Subjective Patient still does not complain of nausea abdominal pain and has not had any more vomiting since starting the scopolamine patch. Objective Data Objective Data Vital Signs: Vital Signs Temp Pulse Resp BP Pulse Ox O2 Del Method O2 Flow Rate 97.3 F L 73 18 136/48 H 93 Room Air 2 01/14/23 13:59 01/14/23 13:59 01/14/23 13:59 01/14/23 13:59 01/14/23 13:54 01/14/23 13:59 01/10/23 17:10 Oxygen Flow Rate (L/min) 2 Oxygen Delivery Method Room Air Weight: 203 lb 11.314 oz Body Mass Index (BMI) 38.5 Intake & Output: Intake and Output for Last 24 Hours 01/12/23 01/13/23 01/14/23 23:59 23:59 23:59 Intake Total 544 / 669 937 / 937 222 / 222 Output Total 600 / 600 0 / 0 Balance 544 / 669 337 / 337 222 / 222 Lab / Micro Data 01/14/23 06:15 01/14/23 06:15 Labs: Laboratory Results - last 24 hr 01/13/23 17:07: POC Glucose 131 H 01/13/23 21:22: POC Glucose 147 H 01/14/23 06:15: WBC 12.1 H, RBC 3.33 L, Hgb 10.4 L, Hct 33.2 L, MCV 99.7 H, MCH 31.2, MCHC 31.3 L, RDW Std Deviation 62.8 H, RDW Coeff of Alanna 17.4 H, Plt Count 287, MPV 10.4, Immature Gran % (Auto) 1.200 H, Neut % (Auto) 74.4 H, Lymph % (Auto) 14.3 L, [place] % (Auto) 7.4, Eos % (Auto) 2.2, Baso % (Auto) 0.5, Absolute Neuts (auto) 9.0 H, Absolute Lymphs (auto) 1.73, Nucleated RBC % 0, Sodium 135 L , Potassium 4.1, Chloride 102, Carbon Dioxide 26.0, Anion Gap 7, BUN 21 H, Creatinine 4.28 H, Estim Creat Clear Calc 7.91, Est GFR (MDRD) Af Amer 13 L, Est GFR (MDRD) Non-Af 11 L, BUN/Creatinine Ratio 4.9 L, Glucose 98, Calcium 8.5 01/14/23 06:32: POC Glucose 105 01/14/23 11:10: POC Glucose 78 Micro: Microbiology 01/10/23 17:17 Blood Culture (Wb) - Anticubital Right Blood Culture - Preliminary No growth in 48 hours. 01/10/23 17:27 Blood Culture (Wb) - Anticubital Left Blood Culture - Preliminary No growth in 48 hours. Physical Exam Narrative GENERAL: cooperative HEENT: Atraumatic; normocephalic EYES; Anicteric, Normal Conjunctiva NECK; supple, normal thyroid, RESPIRATORY: Diminished to auscultation CARDIOVASCULAR: Regular S1 S2, GI: soft, normoactive bowel sounds, : No Renal angle tenderness; EXTREMITIES: No edema, no clubbing, MUSCULOSKELETAL: no muscle wasting NEURO: Awake; no lateralizing signs. SKIN: No Rash PSYCH; Flat affect Assessment & Plan Assessment/Plan (1) Acute upper gastrointestinal bleeding: PLAN: Plan 82-year-old with history of end-stage renal disease on hemodialysis who has frequent admissions for intractable nausea and vomiting thought to be secondary to hemodialysis. She presented with hematemesis. She underwent an upper endoscopy and was discovered to have a Rosalina-Otto tear which was treated endoscopically. She also had a inflammatory gastroesophageal polyp that was not treated endoscopically. I started her on scopolamine patch after the procedure and she is actually doing very well and her nausea is minimal. She has mild nausea after eating but she is able to keep food down. Recommendations are continue current medical therapy. She should have an official gastric emptying study as an outpatient. He will need to stop scopolamine and all acid suppression prior to her undergoing gastric emptying study. Charges/Coding Visit Charges Inpatient E&M: 05054 Subs Hosp L3
--- NOTE | 2023-01-14 10:09 | PCM.PN.REN ---
Subjective Subjective Resting in bed. no overnight events. reports tolerated HD yesterday with no cramping or nausea. Objective Data Objective Data Vital Signs: Vital Signs Temp Pulse Resp BP Pulse Ox O2 Del Method O2 Flow Rate 97.9 F 76 18 144/45 H 95 Room Air 2 01/14/23 03:05 01/14/23 07:04 01/14/23 08:53 01/14/23 03:05 01/14/23 03:05 01/14/23 08:53 01/10/23 17:10 Oxygen Flow Rate (L/min) 2 Oxygen Delivery Method Room Air Weight: 92.4 kg Body Mass Index (BMI) 38.5 Intake & Output: Intake and Output for Last 24 Hours 01/12/23 01/13/23 01/14/23 23:59 23:59 23:59 Intake Total 544 / 669 937 / 937 110 / 110 Output Total 600 / 600 0 / 0 Balance 544 / 669 337 / 337 110 / 110 Lab / Micro Data 01/14/23 06:15 01/14/23 06:15 Labs: Laboratory Results - last 24 hr 01/13/23 12:13: POC Glucose 88 01/13/23 17:07: POC Glucose 131 H 01/13/23 21:22: POC Glucose 147 H 01/14/23 06:15: WBC 12.1 H, RBC 3.33 L, Hgb 10.4 L, Hct 33.2 L, MCV 99.7 H, MCH 31.2, MCHC 31.3 L, RDW Std Deviation 62.8 H, RDW Coeff of Alanna 17.4 H, Plt Count 287, MPV 10.4, Immature Gran % (Auto) 1.200 H, Neut % (Auto) 74.4 H, Lymph % (Auto) 14.3 L, [place] % (Auto) 7.4, Eos % (Auto) 2.2, Baso % (Auto) 0.5, Absolute Neuts (auto) 9.0 H, Absolute Lymphs (auto) 1.73, Nucleated RBC % 0, Sodium 135 L, Potassium 4.1, Chloride 102, Carbon Dioxide 26.0, Anion Gap 7, BUN 21 H, Creatinine 4.28 H, Estim Creat Clear Calc 7.91, Est GFR (MDRD) Af Amer 13 L, Est GFR (MDRD) Non-Af 11 L, BUN/Creatinine Ratio 4.9 L, Glucose 98, Calcium 8.5 01/14/23 06:32: POC Glucose 105 Micro: Microbiology 01/10/23 17:17 Blood Culture (Wb) - Anticubital Right Blood Culture - Preliminary No growth in 48 hours. 01/10/23 17:27 Blood Culture (Wb) - Anticubital Left Blood Culture - Preliminary No growth in 48 hours. Physical Exam Narrative Alert and oriented x3, no apparent distress S1, S2, RRR Lung sounds clear anteriorly and posteriorly. No wheezes rhonchi or rales noted Abdomen soft, nontender No edema Tunneled HD catheter dressing clean, dry and intact Assessment & Plan Assessment/Plan (1) ESRD on hemodialysis: PLAN: - ESRD on hemodialysis Friday schedule. EDW 91.5 kg. No acute indication for CONTROL ROOM HELPER today, patient to undergo hemodialysis tomorrow and attempt fluid removal as patient/blood pressure tolerates. -Acute upper GI bleed; patient had EGD with findings of oozing gastric ulcers. On PPI drip, scopolamine patch. Started regular/renal diet -Hemoglobin stable, 10.4 - bps stable, continue midodrine - d/c planning in progress, possible ecf for therapy. Next HD tomorrow
[2023-01-14] MEDS: Scopolamine 1mg/72hr Patch 1 PATCH TD (11:16)
[2023-01-14] MEDS: Senna/Docusate Sodium 1 Tablet PO (11:16)
[2023-01-14 11:42] LABS: Bedside Glucose 78 mg/dL (74-106)
[2023-01-14 12:19] VITALS: BP 148/45; PULSE 76; RESP 14; TEMP 36.9; O2SAT 94
--- NOTE | 2023-01-14 13:40 | PCM.DC.SUM ---
Providers Date of Admission: 01/12/23 Date of Discharge: 01/14/23 Primary Care Physician: Dr. Satnam Saldana MD Consultations 01/10/23 20:52 Consult: Gastroenterology Routine Consulting Provider: [facility] Reason for Consult: UGIB EMERGENT Consult: No Notified: Yes Date Notified: 01/10/23 Time Notified: 19:39 Method of Notification: ED Physician Initiated Consult: Nephrology Routine Consulting Provider: Louise Deal Reason for Consult: dialysis EMERGENT Consult: No Notified: Yes Date Notified: 01/11/23 Time Notified: 08:55 Method of Notification: Answering Service Reason For Visit: GI BLEED Diagnosis Discharge Diagnosis (1) ESRD on hemodialysis: Status: Acute Code(s): N18.6 - End stage renal disease; Z99.2 - Dependence on renal dialysis (2) Acute upper gastrointestinal bleeding: Status: Acute Code(s): K92.2 - Gastrointestinal hemorrhage, unspecified Plan Patient is an 82-year-old female with history of end-stage renal disease on hemodialysis who presented with hematemesis and suspected aspiration pneumonitis 1. Acute upper GI bleed -Patient presented with hematemesis started on Protonix drip admitted to regular nursing floor with consultation placed to GI -Patient underwent EGD today prior findings and recommendation are as Impressions : - Rosalina-Otto tear. Injected. Treated with a heater probe. - Medium-sized hiatal hernia. - A single gastroesophageal junction polyp. - Oozing gastric ulcers with pigmented material. Treated with a heater probe. - No gross lesions in the duodenal bulb. - No specimens collected. Recommendations : - [facility] to [facility] for [facility] care. - Full liquid diet. - Continue present medications. -Consider scopolamine patch 1.5 mg every 72 hours for nausea associated with dialysis. Hold for sedation, dry mouth, dry eyes and constipation. - 01/13/2023; Patient to be started on regular renal diet 3. Aspiration pneumonitis ?Patient was started on Unasyn given her persistent leukocytosis 3. End-stage renal disease ? Patient is on hemodialysis. Nephrology consulted for dialysis orders 4. Hypothyroidism - Patient is on levothyroxine home dose continued 5. Hypertension - Blood pressure controlled, home medications continued with dose adjustment as needed 6. Diabetes mellitus type 2 ? With complications including diabetic nephropathy patient is on Actos held please on Accu-Cheks before meals and at bedtime 7. 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 Chronic congestive heart failure with preserved ejection fraction ? Echo from 08/18/2021 demonstrated EF of 65%. Patient remains stable 9. Dyslipidemia -Patient is on statin therapy, continued at home dose 10. GERD ? On PPI 11. Depression with anxiety ? Stable on bupropion continue 12. Class II obesity with BMI of 38.7 ? Complicating care weight loss advised 13. DVT prophylaxis ? SCDs ; chemoprophylaxis contraindicated given patient presentation 14. Physical deconditioning - Requested for PT OT eval and foster care social worker to assist with discharge planning ? Patient was offered the option of going to a intermediate facility for rehab she declined. Her family informed 10. Constipation ? Started on senna Time spent in the patient's overall evaluation,decision-making process, review of diagnostic data, adjustment of management, discussion with other providers, nursing nursing and ancillary staff involved in patient's care documentation, 35 minutes Medications at Discharge Home Medications atorvastatin 80 mg tablet 80 mg PO QHS CHOLESTEROL 10/12/18 omeprazole 40 mg capsule,delayed release 40 mg PO DAILY ACID REFLUX 10/12/18 albuterol sulfate 90 mcg/actuation aerosol inhaler 2 puff inhalation Q4H PRN SHORTNESS OF BREATH 10/13/18 montelukast 10 mg tablet 10 mg PO QHS ALLERGIES 10/26/19 acetaminophen 325 mg tablet 650 mg PO Q4H PRN pain/fever 05/10/21 ergocalciferol (vitamin D2) 50,000 unit tablet 50,000 unit PO MO SUPPLEMENT 05/10/21 ipratropium 0.5 mg-albuterol 3 mg (2.5 mg base)/3 mL nebulization soln 3 ml inhalation Q6H PRN SHORTNESS OF BREATH 05/10/21 fluticasone propionate 110 mcg/actuation HFA aerosol inhaler (Flovent HFA) 1 puff inhalation BID PRN Wheezing 02/08/22 latanoprost 0.005 % eye drops 1 drp ophthalmic (eye) ONCE GLAUCOMA 02/08/22 tiotropium bromide 2.5 mcg/actuation mist for inhalation (Spiriva Respimat) 2 puff inhalation QAM PRN Wheezing 11/11/22 bupropion HCl 100 mg tablet 100 mg PO BID DEPRESSION 08/16/22 insulin glargine 100 unit/mL (3 mL) subcutaneous pen (Lantus Solostar U-100 Insulin) 8 unit subcut DAILY BLOOD SUGARS 08/16/22 levothyroxine 137 mcg tablet 137 mcg PO MOTUWETH 08/16/22 aspirin 81 mg tablet,delayed release (Adult Aspirin Regimen) 81 mg PO DAILY HEART HEALTH 10/11/22 calcitriol 0.25 mcg capsule 0.25 mcg PO WEFR 10/11/22 calcium acetate(phosphat bind) 667 mg capsule 667 mg PO TID 10/11/22 levothyroxine 137 mcg capsule 205.5 mcg PO SUFRSA THYROID 10/11/22 magnesium oxide 400 mg PO DAILY SUPPLEMENT 10/11/22 mecobalamin (vitamin B12) 500 mcg chewable tablet 500 mcg PO DAILY SUPPLEMENT 10/11/22 pioglitazone 30 mg tablet 30 mg PO DAILY DIABETES 10/11/22 meclizine 12.5 mg tablet 12.5 mg PO BID PRN VERTIGO 30 days #0 tabs 10/26/22 midodrine 5 mg tablet 5 mg PO TIDCM #0 tabs 10/26/22 sennosides 8.6 mg-docusate sodium 50 mg tablet (Stool Softener-Stimulant Laxative) 2 tab PO BID PRN PRN CONSTIPATION #0 tabs 10/26/22 glucagon 1 mg/mL solution for injection 1 mg subcut Q20M PRN hypoglycemia 11/06/22 amoxicillin 875 mg-potassium clavulanate 125 mg tablet 1 tab PO BID #14 tabs 01/14/23 pantoprazole 40 mg tablet,delayed release (Protonix) 40 mg PO DAILY #60 tabs 01/14/23 scopolamine base 1 mg over 3 days transdermal patch 1 patch transdermal Q3D #10 ea 01/14/23 sennosides 8.6 mg-docusate sodium 50 mg tablet (Stool Softener-Stimulant Laxative) 1 tab PO DAILY #30 tabs 01/14/23 Physical Exam Narrative GENERAL: cooperative HEENT: Atraumatic; normocephalic EYES; Anicteric, Normal Conjunctiva NECK; supple, normal thyroid, RESPIRATORY: Diminished to auscultation CARDIOVASCULAR: Regular S1 S2, GI: soft, normoactive bowel sounds, : No Renal angle tenderness; EXTREMITIES: No edema, no clubbing, MUSCULOSKELETAL: no muscle wasting NEURO: Awake; no lateralizing signs. SKIN: No Rash PSYCH; Flat affect Weight / BMI Weight Weight: 92.4 kg Body Mass Index (BMI) 38.5 ABG / Lab / Microbiology Data 01/14/23 06:15 01/14/23 06:15 Laboratory: Laboratory Results - last 24 hr 01/13/23 17:07: POC Glucose 131 H 01/13/23 21:22: POC Glucose 147 H 01/14/23 06:15: WBC 12.1 H, RBC 3.33 L, Hgb 10.4 L, Hct 33.2 L, MCV 99.7 H, MCH 31.2, MCHC 31.3 L, RDW Std Deviation 62.8 H, RDW Coeff of Alanna 17.4 H, Plt Count 287, MPV 10.4, Immature Gran % (Auto) 1.200 H, Neut % (Auto) 74.4 H, Lymph % (Auto) 14.3 L, [place] % (Auto) 7.4, Eos % (Auto) 2.2, Baso % (Auto) 0.5, Absolute Neuts (auto) 9.0 H, Absolute Lymphs (auto) 1.73, Nucleated RBC % 0, Sodium 135 L, Potassium 4.1, Chloride 102, Carbon Dioxide 26.0, Anion Gap 7, BUN 21 H, Creatinine 4.28 H, Estim Creat Clear Calc 7.91, Est GFR (MDRD) Af Amer 13 L, Est GFR (MDRD) Non-Af 11 L, BUN/Creatinine Ratio 4.9 L, Glucose 98, Calcium 8.5 01/14/23 06:32: POC Glucose 105 01/14/23 11:10: POC Glucose 78 Microbiology: Microbiology 01/10/23 17:17 Blood Culture (Wb) - Anticubital Right Blood Culture - Preliminary No growth in 48 hours. 01/10/23 17:27 Blood Culture (Wb) - Anticubital Left Blood Culture - Preliminary No growth in 48 hours. D/C Instructions Discharge Diet: Renal Diet Discharge Activity: Return to Normal Activity Call your doctor if you observe: Fever of 101 or Higher, Shortness of breath, Fainting spells and Chest pain Meaningful Use Info Meaningful Use Diagnoses (Choose all that apply): None applicable Discharge Plan Admission Admit Date/Time: 01/12/23 19:52 Attending Provider: Perez Goetz Primary Care Provider: Satnam Saldana Consulting Providers: Xavier Burns; Louise Deal Discharge Orders/Prescriptions Prescriptions: New sennosides-docusate sodium [Stool Softener-Stimulant Laxat] 8.6-50 mg Tablet 1 tab PO DAILY Qty: 30 0RF scopolamine base 1 mg over 3 days Patch 3 Day 1 patch transdermal Q3D Qty: 10 0RF amoxicillin-pot clavulanate 875-125 mg tablet 1 tab PO BID Qty: 14 0RF pantoprazole [Protonix] 40 mg tablet,delayed release (DR/EC) 40 mg PO DAILY Qty: 60 0RF Continued omeprazole 40 mg capsule,delayed release(DR/EC) 40 mg PO DAILY atorvastatin 80 mg tablet 80 mg PO QHS albuterol sulfate 90 mcg/actuation HFA aerosol inhaler 2 puff INHALATION Q4H PRN (Reason: SHORTNESS OF BREATH ) latanoprost 0.005 % drops 1 drp OPHTHALMIC ONCE levothyroxine 137 mcg tablet 137 mcg PO MOTUWETH Rx Instructions: PT TAKES ONE TABLET (137 MCG) BY MOUTH ONCE DAILY FRIDAY THROUGH FRIDAY AND 1.5 TABLETS (205.5 MCG) FRIDAY THROUGH FRIDAY montelukast 10 mg tablet 10 mg PO QHS Spiriva Respimat 2.5 mcg/actuation mist 2 puff inhalation QAM PRN (Reason: Wheezing) ergocalciferol (vitamin D2) 50,000 unit tablet 50,000 unit PO MO acetaminophen 325 mg tablet 650 mg PO Q4H PRN (Reason: pain/fever) bupropion HCl 100 mg tablet 100 mg PO BID glucagon 1 mg/mL recon soln 1 mg subcut Q20M PRN (Reason: hypoglycemia) Rx Instructions: until target blood sugar attained ipratropium-albuterol 0.5 mg-3 mg(2.5 mg base)/3 mL solution for nebulization 3 ml INHALATION Q6H PRN (Reason: SHORTNESS OF BREATH ) fluticasone propionate [Flovent HFA] 110 mcg/actuation HFA aerosol inhaler 1 puff INHALATION BID PRN (Reason: Wheezing) insulin glargine [Lantus Solostar U-100 Insulin] 100 unit/mL (3 mL) insulin pen 8 unit subcut DAILY Rx Instructions: PTS DAUGHTER STATES THAT THE PT SELF ADJUSTS NEEDED pioglitazone 30 mg tablet 30 mg PO DAILY calcium acetate(phosphat bind) 667 mg capsule 667 mg PO TID Patient Comments: PTS REGIS STATES THAT THEY JUST RECIEVED THIS RX IN THE MAIL AND HAVE YET TO START IT. mecobalamin (vitamin B12) 500 mcg tablet,chewable 500 mcg PO DAILY calcitriol 0.25 mcg capsule 0.25 mcg PO WEFR Patient Comments: PTS DAUGHTER STATES THAT THIS IS USUALLY TAKEN TWICE A WEEEK ON FRIDAY AND FRIDAY aspirin [Adult Aspirin Regimen] 81 mg tablet,delayed release (DR/EC) 81 mg PO DAILY levothyroxine 137 mcg capsule 205.5 mcg PO SUFRSA Rx Instructions: PT TAKES ONE TABLET (137 MCG) BY MOUTH ONCE DAILY FRIDAY THROUGH FRIDAY AND 1.5 TABLETS (205.5 MCG) FRIDAY THROUGH FRIDAY magnesium oxide 400 mg magnesium tablet 400 mg PO DAILY sennosides-docusate sodium [Stool Softener-Stimulant Laxat] 8.6-50 mg Tablet 2 tab PO BID PRN PRN (Reason: CONSTIPATION) Qty: 0 0RF midodrine 5 mg Tablet 5 mg PO TIDCM Qty: 0 0RF meclizine 12.5 mg tablet 12.5 mg PO BID PRN (Reason: VERTIGO) 30 Days Qty: 0 0RF Referrals / Follow Up: Satnam Saldana MD [Primary Care Provider] - Within 1 Week Disposition Disposition (needs filled in before D/C Order can be placed): Home, Self Care Charges/Coding Visit Charges Inpatient E&M: 63846 Disch Hosp >30min
[2023-01-14 13:54] VITALS: BP 136/48; PULSE 74; RESP 18; TEMP 36.6; O2SAT 93
[2023-01-14 13:59] VITALS: BP 136/48; PULSE 73; RESP 18; TEMP 36.3
--- NOTE | 2023-01-14 14:25 | PHA.DC.MC.R ---
Pharmacy [facility] Pharm[facility] Service has performed discharge medication reconciliation and counseling for this patient. The patient's discharge medication list was reviewed for discrepancies and discrepancies were resolved. The patient was counseled on the following discharge medications and changes in medications for homegoing were reviewed. The Reason for Use, instructions for use, and potential side effects were reviewed for all new medications. The patient's questions regarding all of their medications were answered. 1. Amoxicillin/clavulanate 875/125 mg PO BID x 7 days 2. Pantoprazole 40 mg PO daily 3. Scopolamine 1 mg topically every 3 days 4. Senna/docusate 1 tablet PO daily The patient was able to verbally demonstrate an understanding of their discharge medications. Medications at Discharge Home Medications atorvastatin 80 mg tablet 80 mg PO QHS CHOLESTEROL 10/12/18 omeprazole 40 mg capsule,delayed release 40 mg PO DAILY ACID REFLUX 10/12/18 albuterol sulfate 90 mcg/actuation aerosol inhaler 2 puff inhalation Q4H PRN SHORTNESS OF BREATH 10/13/18 montelukast 10 mg tablet 10 mg PO QHS ALLERGIES 10/26/19 acetaminophen 325 mg tablet 650 mg PO Q4H PRN pain/fever 05/10/21 ergocalciferol (vitamin D2) 50,000 unit tablet 50,000 unit PO MO SUPPLEMENT 05/10/21 ipratropium 0.5 mg-albuterol 3 mg (2.5 mg base)/3 mL nebulization soln 3 ml inhalation Q6H PRN SHORTNESS OF BREATH 05/10/21 fluticasone propionate 110 mcg/actuation HFA aerosol inhaler (Flovent HFA) 1 puff inhalation BID PRN Wheezing 02/08/22 latanoprost 0.005 % eye drops 1 drp ophthalmic (eye) ONCE GLAUCOMA 02/08/22 tiotropium bromide 2.5 mcg/actuation mist for inhalation (Spiriva Respimat) 2 puff inhalation QAM PRN Wheezing 02/08/22 bupropion HCl 100 mg tablet 100 mg PO BID DEPRESSION 08/16/22 insulin glargine 100 unit/mL (3 mL) subcutaneous pen (Lantus Solostar U-100 Insulin) 8 unit subcut DAILY BLOOD SUGARS 08/16/22 levothyroxine 137 mcg tablet 137 mcg PO MOTUWETH 08/16/22 aspirin 81 mg tablet,delayed release (Adult Aspirin Regimen) 81 mg PO DAILY HEART HEALTH 10/11/22 calcitriol 0.25 mcg capsule 0.25 mcg PO WEFR 10/11/22 calcium acetate(phosphat bind) 667 mg capsule 667 mg PO TID 10/11/22 levothyroxine 137 mcg capsule 205.5 mcg PO SUFRSA THYROID 10/11/22 magnesium oxide 400 mg PO DAILY SUPPLEMENT 10/11/22 mecobalamin (vitamin B12) 500 mcg chewable tablet 500 mcg PO DAILY SUPPLEMENT 10/11/22 pioglitazone 30 mg tablet 30 mg PO DAILY DIABETES 10/11/22 meclizine 12.5 mg tablet 12.5 mg PO BID PRN VERTIGO 30 days #0 tabs 10/26/22 midodrine 5 mg tablet 5 mg PO TIDCM #0 tabs 10/26/22 sennosides 8.6 mg-docusate sodium 50 mg tablet (Stool Softener-Stimulant Laxative) 2 tab PO BID PRN PRN CONSTIPATION #0 tabs 10/26/22 glucagon 1 mg/mL solution for injection 1 mg subcut Q20M PRN hypoglycemia 11/06/22 amoxicillin 875 mg-potassium clavulanate 125 mg tablet 1 tab PO BID #14 tabs 01/14/23 pantoprazole 40 mg tablet,delayed release (Protonix) 40 mg PO DAILY #60 tabs 01/14/23 scopolamine base 1 mg over 3 days transdermal patch 1 patch transdermal Q3D #10 ea 01/14/23 sennosides 8.6 mg-docusate sodium 50 mg tablet (Stool Softener-Stimulant Laxative) 1 tab PO DAILY #30 tabs 01/14/23
== END 2023-01-14 17:30 | disposition home health service (06) | DRG 368 ==
LOC: ED 18:22 → MS3 20:02
PROVIDERS: Anesthesiology; Hospitalist; Internal Medicine Gastroenterology; Admitting Provider Family Medicine; Emergency Provider Emergency Medicine; PCP Family Medicine; Visit Provider Internal Medicine
PROC: 0DJ08ZZ Inspection of Upper Intestinal Tract, Via Natural or Artificial Opening Endoscopic (ICD-10-PCS; CPT 43235; principal; 2023-01-11 08:45)
DX: K22.6 Gastro-esophageal laceration-hemorrhage syndrome (principal); J69.0 Pneumonitis due to inhalation of food and vomit; N18.6 End stage renal disease; I13.2 Hypertensive heart and chronic kidney disease with heart failure and with stage 5 chronic kidney disease, or end stage renal disease; I50.32 Chronic diastolic (congestive) heart failure; E87.20 Acidosis, unspecified; E11.21 Type 2 diabetes mellitus with diabetic nephropathy; Z99.2 Dependence on renal dialysis; E11.22 Type 2 diabetes mellitus with diabetic chronic kidney disease; E03.9 Hypothyroidism, unspecified; K44.9 Diaphragmatic hernia without obstruction or gangrene; E78.5 Hyperlipidemia, unspecified; J98.01 Acute bronchospasm; I25.10 Atherosclerotic heart disease of native coronary artery without angina pectoris; F41.8 Other specified anxiety disorders; K21.9 Gastro-esophageal reflux disease without esophagitis; K59.00 Constipation, unspecified; K25.0 Acute gastric ulcer with hemorrhage; Z68.38 Body mass index [BMI] 38.0-38.9, adult; Z82.5 Family history of asthma and other chronic lower respiratory diseases; Z79.82 Long term (current) use of aspirin; Z95.810 Presence of automatic (implantable) cardiac defibrillator; Z79.84 Long term (current) use of oral hypoglycemic drugs; Z78.0 Asymptomatic menopausal state; E66.9 Obesity, unspecified; Z82.3 Family history of stroke
CPT/HCPCS: 36415; 71046; 80048; 80053; 82962; 83036; 83605; 83735; 84100; 84443; 85014; 85018; 85025; 85610; 85730; 86850; 86900; 86901; 87040; 90937; 93005; 94640; 97162; 97166; 99285; J7030; A4216; G0257; J0295; J2405; J3490

== ENCOUNTER 2023-01-21 09:38 | Emergency (ER) | payer MEDICARE, SELFPAY ==
[2023-01-21 09:40] VITALS: BP 137/43; PULSE 79; RESP 21; TEMP 36; O2SAT 98; BMI 39.9
--- NOTE | 2023-01-21 10:38 | CT_ITS ---
STUDY: CT ABDOMEN AND PELVIS WITH CONTRAST REASON FOR EXAM: Female, 82 years old. History of recent upper GI bleed. Abdominal pain. RADIATION DOSAGE (If Supplied By Facility): CTDIvol = ( 32.43 ) mGy, DLP = ( 1717.96 ) mGycm TECHNIQUE: Transaxial images were obtained from the dome of the diaphragm to the symphysis pubis without oral contrast. IV 100mL Isovue-300 was administered. Sagittal and coronal images were reconstructed. Individualized dose optimization techniques were used for this CT. COMPARISON: Comparison is made with prior study dated July 22, 2021. FINDINGS: Tiny bilateral pleural effusions slightly more prominent on the left side with bibasilar atelectasis. A dual-chamber pacemaker device is seen. Loculated fluid collection is seen along the inferior aspect of the right and left lobe of the liver. This may represent subcapsular collection. Normal gallbladder and extrahepatic biliary system. Normal spleen. Normal pancreas. Normal bilateral adrenal glands. Diffuse bilateral renal atrophy. Abnormal appearance of the stomach with the gastric wall thickening. Loculated fluid is seen surrounding the stomach extending into the lesser sac. Loculated fluid is seen along the Color Dopplers bilaterally worse on the left side. Scattered sigmoid diverticula. The appendix is visualized and appears normal. There is diffuse atherosclerotic calcification of the abdominal aorta, without a demonstrated aneurysm. Normal inferior vena cava. Normal retroperitoneum. The bladder is empty at this time. Calcified fibroid uterus. Evidence of prior anterior abdominal wall hernia repair with mesh. Increased markings in the subcutaneous fat suggestive of possible fluid overload with increased skin thickening. There are diffuse degenerative changes of the visualized lumbar spine. Dextroscoliosis. CT/Abdomen/Pelvis W IV Cont ONLY IMPRESSION: Loculated fluid collections seen in the inferior aspect of the right and left lobe of the liver. This may represent subcapsular collection. Fluid is also seen surrounding the stomach. Diffuse gastric wall thickening. Fluid is seen in the paracolic gutters and loculated more prominent on the left side. Electronically Signed: Anselmo Best MD at 12:17 EDT ,
--- NOTE | 2023-01-21 10:39 | ED.VIS.GI ---
HPI HPI - GI History of Present Illness Chief Complaint: Abd Pain Detail of Chief Complaint: Abdominal pain Informant: patient Narrative Narrative: Patient presents with abdominal pain that started about a week ago. Patient states that she was admitted to the hospital about a week and a half ago for upper GI bleed and she had several ulcers cauterized by Dr. Montgomery. Patient has not had a bowel movement in a week. She has been vomiting about 8 times a day. Patient cannot keep anything down. Her last dialysis was yesterday. She denies chest pain. She denies shortness of breath. Patient does not make much urine. [facility] Medical History Acute respiratory failure Albuminuria Asthma Bilateral carotid artery stenosis Chronic anemia Chronic diastolic CHF (congestive heart failure) Chronic kidney disease Esophageal dysphagia ESRD on peritoneal dialysis Essential hypertension GERD (gastroesophageal reflux disease) Glaucoma Hyperlipidemia Hyperparathyroidism, secondary renal Hypothyroidism Leg wound, right Lichenification and lichen simplex chronicus Major depressive disorder Methicillin resistant Staphylococcus epidermidis infection Neurodermatitis Non-proliferative diabetic retinopathy, both eyes Nonobstructive atherosclerosis of coronary artery Normocytic anemia Nummular eczema Obesity Open wound of right forearm 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) Recurrent syncope (03/28/21) Severe protein-calorie malnutrition Skin tear of right forearm without complication Skin tear of right lower leg without complication Stage 3 chronic kidney disease Stenosis of left carotid artery Torsades de pointes (03/28/21) Transient visual loss, right eye (11/2020) Type II diabetes mellitus Ventricular tachycardia Vitamin B 12 deficiency Home Medications atorvastatin 80 mg tablet 80 mg PO QHS CHOLESTEROL 10/12/18 [History Last Taken 10/10/22] albuterol sulfate 90 mcg/actuation aerosol inhaler 2 puff inhalation Q4H PRN SHORTNESS OF BREATH 10/13/18 [History Last Taken Unknown] montelukast 10 mg tablet 10 mg PO QHS ALLERGIES 10/26/19 [History Last Taken 10/10/22] acetaminophen 325 mg tablet 650 mg PO Q4H PRN pain/fever 05/10/21 [History Last Taken Unknown] ergocalciferol (vitamin D2) 50,000 unit tablet 50,000 unit PO MO SUPPLEMENT 05/10/21 [History Last Taken 10/07/22] ipratropium 0.5 mg-albuterol 3 mg (2.5 mg base)/3 mL nebulization soln 3 ml inhalation Q6H PRN SHORTNESS OF BREATH 05/10/21 [History Last Taken Unknown] fluticasone propionate 110 mcg/actuation HFA aerosol inhaler (Flovent HFA) 1 puff inhalation BID PRN Wheezing 02/08/22 [History Last Taken Unknown] latanoprost 0.005 % eye drops 1 drp ophthalmic (eye) ONCE GLAUCOMA 02/08/22 [History Last Taken Unknown] tiotropium bromide 2.5 mcg/actuation mist for inhalation (Spiriva Respimat) 2 puff inhalation QAM PRN Wheezing 02/08/22 [History Last Taken Unknown] bupropion HCl 100 mg tablet 100 mg PO BID DEPRESSION 08/16/22 [History Last Taken 10/10/22] insulin glargine 100 unit/mL (3 mL) subcutaneous pen (Lantus Solostar U-100 Insulin) 5 unit subcut DAILY BLOOD SUGARS 08/16/22 [History Last Taken 10/10/22] levothyroxine 137 mcg tablet 137 mcg PO MOTUWETH 08/16/22 [History Last Taken 10/10/22] aspirin 81 mg tablet,delayed release (Adult Aspirin Regimen) 81 mg PO DAILY HEART HEALTH 10/11/22 [History Last Taken 10/10/22] calcium acetate(phosphat bind) 667 mg capsule 667 mg PO TID 10/11/22 [History Last Taken Unknown] levothyroxine 137 mcg capsule 205.5 mcg PO SUFRSA THYROID 10/11/22 [History Last Taken 10/06/22] magnesium oxide 400 mg PO DAILY SUPPLEMENT 10/11/22 [History Last Taken 10/10/22] mecobalamin (vitamin B12) 500 mcg chewable tablet 500 mcg PO DAILY SUPPLEMENT 10/11/22 [History Last Taken 10/10/22] pioglitazone 30 mg tablet 30 mg PO DAILY DIABETES 10/11/22 [History Last Taken 10/10/22] meclizine 12.5 mg tablet 12.5 mg PO BID PRN VERTIGO 30 days #0 tabs 10/26/22 [Rx Last Taken 10/10/22] midodrine 5 mg tablet 5 mg PO TIDCM #0 tabs 10/26/22 [Rx Last Taken Unknown] sennosides 8.6 mg-docusate sodium 50 mg tablet (Stool Softener-Stimulant Laxative) 2 tab PO BID PRN PRN CONSTIPATION #0 tabs 10/26/22 [Rx Last Taken Unknown] glucagon 1 mg/mL solution for injection 1 mg subcut Q20M PRN hypoglycemia 11/06/22 [History Last Taken Unknown] amoxicillin 875 mg-potassium clavulanate 125 mg tablet 1 tab PO BID #14 tabs 01/14/23 [Rx Last Taken 01/19/23] pantoprazole 40 mg tablet,delayed release (Protonix) 40 mg PO DAILY #60 tabs 01/14/23 [Rx Last Taken Unknown] scopolamine base 1 mg over 3 days transdermal patch 1 patch transdermal Q3D #10 ea 01/14/23 [Rx Last Taken Unknown] Allergy/AdvReac Type Severity Reaction Status Date / Time metformin [From Glucophage] Allergy Severe renal Verified 01/10/23 15:49 failure adhesive Allergy Intermediate blisters Verified 01/10/23 15:49 oxycodone Allergy Intermediate hallucinati Verified 01/10/23 15:49 ons tramadol Allergy Intermediate Vomiting Verified 01/10/23 15:49 metoclopramide [From Reglan] Allergy Mild Nausea Verified 01/10/23 16:43 ERIC Inhibitors AdvReac Intermediate cough Verified 01/10/23 15:49 buspirone [From BuSpar] AdvReac Hallucinati Verified 01/10/23 15:49 ons Family History Father Heart disease Hypertension Suicide Mother Hypertension CVA (cerebral vascular accident) COPD (chronic obstructive pulmonary disease) CAD (coronary artery disease) Surgical History History of bilateral knee replacement (1989) History of breast biopsy History of implantable cardiac defibrillator (ICD) (04/02/21) History of left heart catheterization (03/28/21) History of open reduction and internal fixation (ORIF) procedure History of right cataract extraction (10/03/11) History of temporary cardiac pacemaker treatment (03/28/21) History of tonsillectomy Social History household members: none Smoking Status: Never smoker alcohol intake: never substance use type: does not use caffeine: Yes Type: coffee Number of servings: 2 ROS ROS ED Review of Systems ROS Unobtainable: other Constitutional Constitutional ED: Reports lethargy; Denies chills, fever(s), sweats or weight loss Eyes Eyes: Denies blurry vision, change in vision or diplopia ENT ENT ED: Denies rhinorrhea or sore throat Cardiovascular Cardiovascular: Denies chest pain, orthopnea or racing heartbeat Respiratory/Chest Respiratory/Chest: Denies cough, dyspnea, dyspnea on exertion, orthopnea or sputum Gastrointestinal Gastrointestinal: Reports abdominal pain, constipation, nausea and vomiting; Denies diarrhea Genitourinary Genitourinary ED: Denies dysuria, hematuria or urinary frequency Musculoskeletal Musculoskeletal: Denies arthralgias, back pain, myalgias or neck pain Integumentary Denies abscess, Abrasions or rash Neurologic Neurologic: Denies headache(s) or weakness Psychiatric Psychiatric: Denies anxiety, depression or suicidal thoughts Endocrine Endocrinology: Denies polydipsia, polyphagia or polyuria Hematologic/Lymphatic Hematologic/Lymphatic: Denies easy bleeding, easy bruising or lymphadenopathy Allergic/Immunologic Allergic/Immunologic ED: Denies mouth swelling, tongue swelling or urticaria EXAM Physical Exam Const Vital Signs: 01/21/23 09:40 01/21/23 13:05 Temperature 96.8 F L Temperature Source Temporal Pulse Rate 79 85 Respiratory Rate 21 H 26 H Blood Pressure 137/43 H Blood Pressure Mean 74 Pulse Ox 98 Oxygen Delivery Method Nasal Cannula Oxygen Flow Rate (L/min) 2 Positive well nourished and well developed General Appearance ED: well developed and NAD HEENT Reports TM's clear and moist mucous membranes normocephalic and atraumatic; Negative for trauma or tenderness Tympanic Membrane ED: Yes TM's clear Eyes PERRL and EOMs intact bilaterally General Eye ED: Negative for pale conjunctiva or scleral icterus Neck no lymphadenopathy, supple and no JVD General: Negative for tenderness Chest Wall inspection of chest normal and palpation of chest normal Chest: Negative for tenderness Resp normal respiratory effort and clear to auscultation bilaterally Effort and Inspection: Negative for respiratory distress or pain with movement Auscultation: Negative for rhonchi, wheezes or diminished lung sounds Cardio regular rate, regular rhythm, S1 normal heart sound, S2 normal heart sound and no murmurs Peripheral Pulses: pulses 2+ throughout GI normal to inspection, nondistended, normoactive bowel sounds, soft to palpation, non-distended and no masses GI Narrative: Tenderness to palpation bilaterally. Mild guarding. There is no rebound or rigidity. Back/Spine no CVA tenderness and no thoracic nor lumbar tenderness Extremity normal to inspection General Extremety ED: Negative for edema General Extremity: Negative for edema Neuro oriented x3, CN's II-XII intact bilaterally, no sensory deficits noted and gait normal Sensorium / Orientation: awake, alert, oriented to person, oriented to place and oriented to time Motor Exam: strength 5/5 throughout and strength abnormal Psych mental status grossly normal Skin no rashes or lesions noted and no wounds MDM MDM MDM Narrative Medical decision making narrative: Patient presents with ongoing abdominal pain and vomiting over the last week. Patient had prior cauterization of peptic ulcers about a week ago. IV line was established. Patient had been medicated by EMS with fentanyl and Zofran. She did not want anything for pain or nausea. IV line established. Patient was given normal saline fluid bolus. CBC with differential obtained showed a white count of 13.2 with hemoglobin 11.7 and platelet count of 335. Chemistries were unremarkable. BUN 12 and creatinine 3.85. Lactate was normal at 0.8. LFTs were unremarkable other than a slightly elevated alkaline phosphatase at 130. Lipase was 14. CBC with differential obtained showed a white blood cell count of 25-50 with 0 bacteria seen and negative nitrites. CAT scan of the abdomen pelvis obtained showed loculated fluid collection along the area of the liver and spleen and stomach. Also fluid collections along the pericolic gutters. I did discuss findings with general surgeon on-call Dr. Roblero who presented to the emergency department to evaluate patient. Dr. Roblero discussed case with Dr. Montgomery and radiologist as well. I was asked to repeat a CT scan of the abdomen pelvis with oral contrast which is ordered. There is concern by our surgeon that this finding on CT may represent a contained gastric perforation and recommended transfer of patient to tertiary care center for further treatment and evaluation. Family members comfortable with plan and would like to try the transfer to [facility]. Lab Data Attestation: I reviewed the patient's lab results. Labs: Laboratory Results - last 24 hr 01/21/23 01/21/23 01/21/23 10:48 11:10 12:39 WBC 13.2 H RBC 3.81 L Hgb 11.7 L Hct 37.1 MCV 97.4 MCH 30.7 MCHC 31.5 L RDW Std Deviation 64.0 H RDW Coeff of Alanna 18.5 H Plt Count 336 MPV 10.0 Immature Gran % (Auto) 1.500 H Neut % (Auto) 79.3 H Lymph % (Auto) 11.5 L [place] % (Auto) 6.4 Eos % (Auto) 0.8 Baso % (Auto) 0.5 Absolute Neuts (auto) 10.5 H Absolute Lymphs (auto) 1.52 Nucleated RBC % 0 Sodium 137 Potassium 3.5 Chloride 97 L Carbon Dioxide 32.0 Anion Gap 8 BUN 12 Creatinine 3.85 H Estim Creat Clear Calc 8.79 Est GFR (MDRD) Af Amer 14 L Est GFR (MDRD) Non-Af 12 L BUN/Creatinine Ratio 3.1 L Glucose 68 L Lactic Acid 0.8 Calcium 8.3 L Total Bilirubin 0.30 AST 28 ALT 15 Alkaline Phosphatase 130 H Troponin I High Sens 39 Total Protein 6.8 Albumin 1.4 L Globulin 5.4 H Albumin/Globulin Ratio 0.3 L Lipase 14 Urine Color Yellow Urine Clarity Cloudy Urine pH 5.0 Ur Specific [place] 1.015 Urine Protein 100 H Urine Glucose (UA) Normal Urine Ketones 5 H Urine Occult Blood 10 H Urine Nitrite Negative Urine Bilirubin 1 H Urine Urobilinogen 1 H Ur Leukocyte Esterase 100 H Urine RBC 0 SEEN Urine WBC 25-50 SEEN Ur Squamous Epith Cells 10-25 SEEN Urine Bacteria 0 SEEN Urine Mucus 0 SEEN Blood Type Cancelled A POSITIVE Antibody Screen Cancelled NEGATIVE Radiography Diagnostic Testing: Clinical Impression(s) from Imaging Studies Abdomen/Pelvis CT 01/21/23 10:38 IMPRESSION: Loculated fluid collections seen in the inferior aspect of the right and left lobe of the liver. This may represent subcapsular collection. Fluid is also seen surrounding the stomach. Diffuse gastric wall thickening. Fluid is seen in the paracolic gutters and loculated more prominent on the left side. Electronically Signed: Anselmo Best MD at 12:17 EDT , Discharge Plan Triage Chief Complaint: Abd Pain ED Provider: Alvina Rodriguez Dx/Rx/DC Orders Clinical Impression: Leukocytosis, Abdominal pain, Vomiting Prescriptions: No Action atorvastatin 80 mg tablet 80 mg PO QHS albuterol sulfate 90 mcg/actuation HFA aerosol inhaler 2 puff INHALATION Q4H PRN (Reason: SHORTNESS OF BREATH ) latanoprost 0.005 % drops 1 drp OPHTHALMIC ONCE levothyroxine 137 mcg tablet 137 mcg PO MOTUWETH Rx Instructions: PT TAKES ONE TABLET (137 MCG) BY MOUTH ONCE DAILY FRIDAY THROUGH FRIDAY AND 1.5 TABLETS (205.5 MCG) FRIDAY THROUGH FRIDAY montelukast 10 mg tablet 10 mg PO QHS Spiriva Respimat 2.5 mcg/actuation mist 2 puff inhalation QAM PRN (Reason: Wheezing) ergocalciferol (vitamin D2) 50,000 unit tablet 50,000 unit PO MO acetaminophen 325 mg tablet 650 mg PO Q4H PRN (Reason: pain/fever) bupropion HCl 100 mg tablet 100 mg PO BID glucagon 1 mg/mL recon soln 1 mg subcut Q20M PRN (Reason: hypoglycemia) Rx Instructions: until target blood sugar attained ipratropium-albuterol 0.5 mg-3 mg(2.5 mg base)/3 mL solution for nebulization 3 ml INHALATION Q6H PRN (Reason: SHORTNESS OF BREATH ) fluticasone propionate [Flovent HFA] 110 mcg/actuation HFA aerosol inhaler 1 puff INHALATION BID PRN (Reason: Wheezing) insulin glargine [Lantus Solostar U-100 Insulin] 100 unit/mL (3 mL) insulin pen 5 unit subcut DAILY Patient Comments: If less than 150 hold 150-200 pt gets 5 units 200 or higher gets 10 units Rx Instructions: PTS DAUGHTER STATES THAT THE PT SELF ADJUSTS NEEDED pioglitazone 30 mg tablet 30 mg PO DAILY calcium acetate(phosphat bind) 667 mg capsule 667 mg PO TID Patient Comments: PTS TAHIRTER STATES THAT THEY JUST RECIEVED THIS RX IN THE MAIL AND HAVE YET TO START IT. mecobalamin (vitamin B12) 500 mcg tablet,chewable 500 mcg PO DAILY aspirin [Adult Aspirin Regimen] 81 mg tablet,delayed release (DR/EC) 81 mg PO DAILY levothyroxine 137 mcg capsule 205.5 mcg PO SUFRSA Rx Instructions: PT TAKES ONE TABLET (137 MCG) BY MOUTH ONCE DAILY FRIDAY THROUGH FRIDAY AND 1.5 TABLETS (205.5 MCG) FRIDAY THROUGH FRIDAY magnesium oxide 400 mg magnesium tablet 400 mg PO DAILY sennosides-docusate sodium [Stool Softener-Stimulant Laxat] 8.6-50 mg Tablet 2 tab PO BID PRN PRN (Reason: CONSTIPATION) Qty: 0 0RF midodrine 5 mg Tablet 5 mg PO TIDCM Qty: 0 0RF Patient Comments: Hold if BP >140 Has not had since October meclizine 12.5 mg tablet 12.5 mg PO BID PRN (Reason: VERTIGO) 30 Days Qty: 0 0RF scopolamine base 1 mg over 3 days Patch 3 Day 1 patch transdermal Q3D Qty: 10 0RF Patient Comments: Was due to be changed yesterday 01/20 amoxicillin-pot clavulanate 875-125 mg tablet 1 tab PO BID Qty: 14 0RF pantoprazole [Protonix] 40 mg tablet,delayed release (DR/EC) 40 mg PO DAILY Qty: 60 0RF Primary Care Provider: Satnam Saldana Referrals: Satnam Saldana MD [Primary Care Provider] -
[2023-01-21 11:06] LABS: Absolute Lymphocyte Count 1.52 X10^3/uL (0.83-4.51); Absolute Neutrophil Count 10.5 X10^3/uL (2.0-7.7); Basophil# 0.06 X10^3/uL; Basophil% 0.5 % (0-1); Eosinophils% 0.8 % (0-5); Hematocrit 37.1 % (37-47); Hemoglobin 11.7 g/dL (12.0-15.0); Lymphocyte # 1.52 X10^3/ul (0.83-4.51); Lymphocyte % 11.5 % (19-41); Mean Corp Hgb Conc 31.5 g/dL (32-36); Mean Corpuscular Hgb 30.7 pg (27.0-32.0); Mean Corpuscular Volume 97.4 fL (81-99); Monocyte# 0.85 X10^3/uL; Monocyte% 6.4 % (0-10); NRBC Flagged by Analyzer 0 % (0-5); Neutrophil # 10.47 X10^3/uL (2.7-7.7); Neutrophil % 79.3 % (47-70); Platelet Count 336 K/mm3 (150-450); RBC Distribution Width CV 18.5 % (11.6-14.6); Red Blood Count 3.81 M/mm3 (4.2-5.4); White Blood Count 13.2 K/mm3 (4.4-11.0)
[2023-01-21] MEDS: 0.9% Normal Saline (1000mL) 1,000 ML 125 ML IV (11:23)
[2023-01-21 11:27] LABS: ALB/GLOB Ratio 0.3 RATIO (0.9-2.4); AST(SGOT) 28 U/L (15-37); Alanine Aminotransfer ALT/SGPT 15 U/L (13-56); Albumin, Serum 1.4 g/dL (3.2-5.0); Alkaline Phosphatase 130 U/L (45-117); Anion Gap 8 (5-15); BUN 12 mg/dL (7-18); BUN/Creat Ratio 3.1 RATIO (10-20); Calcium,Total 8.3 mg/dL (8.5-10.1); Chloride 97 mmol/L (98-107); Creatinine, Serum 3.85 mg/dL (0.55-1.02); EST Glomerular Filtration Rate 12 mL/min (>60); Est Glom Filt Rate - Afr Amer 14 mL/min (>60); Estimated Creatinine Clearance 8.79 ml/min; Globulin 5.4 g/dL (2.2-4.2); Glucose 68 mg/dL (74-106); Lipase 14 U/L (13-75); Potassium 3.5 mmol/L (3.5-5.1); Protein, Total 6.8 g/dL (6.4-8.2); Sodium Level 137 mmol/L (136-145); Troponin-I HS 39 pg/mL (3.0-54.0)
[2023-01-21 11:28] LABS: Lactic Acid 0.8 mmol/L (0.4-1.9)
[2023-01-21 12:43] LABS: Bacteria 0 SEEN /hpf (None Seen); Mucous, Urine 0 SEEN /hpf (<or=2+); Red Blood Cells-Urine 0 SEEN /hpf (0-5)
--- NOTE | 2023-01-21 12:47 | CT_ITS ---
STUDY: CT ABDOMEN AND PELVIS WITHOUT CONTRAST REASON FOR EXAM: Female, 82 years old. Abdominal pain RADIATION DOSAGE (If Supplied By Facility): CTDIvol = ( 19.11 ) mGy, DLP = ( 1098.33 ) mGycm TECHNIQUE: Transaxial images were obtained from the dome of the diaphragm to the symphysis pubis with oral contrast, and without intravenous contrast. Sagittal and coronal images were reconstructed. Individualized dose optimization techniques were used for this CT. COMPARISON: Comparison is made with prior study done earlier in the day. FINDINGS: Stable examination. Persistent fluid loculations. No evidence of an enteric leak. Diffuse pancreatic atrophy. CT/Abdomen/Pel W ORAL Cont Only IMPRESSION: Stable examination. No evidence of enteric leak. Electronically Signed: Anselmo Best MD at 14:47 EDT ,
[2023-01-21 12:50] LABS: Color, Urine Yellow (Yellow); Glucose, Dipstick Normal (Normal); Ketone-Dipstick 5 mg/dl (Negative); Leukocyte Esterase-Dipstick 100 /ul (Negative); Nitrite-Dipstick Negative (Negative); Occult Blood-Urine 10 /ul (Negative); Protein-Dipstick 100 mg/dl (Negative); Specific Gravity, Urine 1.015 (1.002-1.030); Urine Clarity Cloudy (Clear); Urine Urobilinogen 1 mg/dl (Normal)
[2023-01-21 12:59] LABS: Squamous Epithelial Cells - UA 10-25 SEEN /hpf (5-10); Urine Bilirubin Dipstick 1 mg/dL (Negative); White Blood Cells 25-50 SEEN /hpf (0-5)
[2023-01-21] MEDS: Ondansetron 4 MG/2 ML Vial IV ×2 (13:02→18:20)
[2023-01-21 13:05] VITALS: PULSE 85; RESP 26
--- NOTE | 2023-01-21 14:04 | EX.PCM.CON.S ---
Assessment & Plan Assessment/Plan (1) Abdominal pain: (2) Perihepatic fluid collection: (3) Intraabdominal fluid collection: (4) Peritonitis (acute) generalized: (5) Gastric ulcer: (6) Nausea and vomiting in adult patient: PLAN: Plan This is an 82-year-old female with numerous medical comorbidities who presents from home due to intractable nausea and vomiting as well as severe, progressive abdominal pain. She has a recent admission for acute upper gastrointestinal bleeding status post EGD with heater probe treatment. EGD at that time also identified evidence of a Rosalina-Otto tear. Patient's ED work-up shows evidence of multiple loculated fluid collections throughout the peritoneum but largely encompassing the stomach. Patient appears clinically stable but evidence of peritonitis with exam?particularly with palpation to the upper abdominal quadrants. Based on patient's history, CT imaging, and exam, I suspect possible contained gastric perforation from conversion of a thermal injury to the stomach versus Boerhaave's perforation that is now sealed due to patient's intractable nausea and vomiting. I have asked emergency medicine to repeat patient's CT scan to confirm that there is no ongoing communication with the peritoneum?something I have a low suspicion for based on the absence of any secondary evidence. Radiology has read this as negative. Regardless of the cause, Ms. Banegas appears to require intervention to obtain source control. Even her smaller infrahepatic fluid collections measure 10 cm across. This would be larger than expected to resolve spontaneously with IV antibiotic therapy alone. I have discussed patient's case with radiology and they suggest comfort only with drainage of patient's paracolic fluid collections. Therefore, this would leave the perigastric and infrahepatic fluid collections undrained. While one could conceivably possible surgical approach, patient's present frail state and poor nutritional status makes this not ideal?especially considering her presently stable clinical status. If her condition were to further deteriorate, her numerous comorbidities would make her medical management undoubtedly quite complex. I have shared this impression?as well as the CT imaging?with both patient and her family. Ms. Brambila and confirms that she would like everything done at this point and therefore I have recommended transfer to a tertiary facility with greater interventional capabilities, more foregut surgical expertise, and more milk delivery driver capabilities. Patient and her family expressed understanding of this rationale and wish to proceed with transfer as recommended. This request has been further to emergency medicine. For the interim would recommend strict n.p.o., broad-spectrum IV antibiotic therapy, and initiation of antifungal therapy could be considered as well. HPI Consult Data Date of Consult: 01/21/23 HPI Narrative Reason for Consultation: Abnormal CT with severe abdominal pain HPI Narrative: Chalino BANEGAS, is a 82 F who presents to [facility] with her [id number] and daughter for complaints of refractory nausea and vomiting symptoms along with progressive upper abdominal pain. Patient's [id number] provides much of the history along with what is found in patient's electronic medical record. Apparently Ms. Banegas and was admitted a week and a half ago for nausea, vomiting, and hematemesis?specifically. She thus underwent EGD with heater probe treatment of a number of greater curvature ulcers on 01/11/2023. Her family states that ever since hospitalization, Ms. Banegas has had complaints of upper abdominal pain and has been unable to reliably keep either food or drink down. Ms. Banegas adds that she believes the pain has been progressive and is now primarily localized under her rib cage. Patient has a very complex past medical history inclusive of respiratory failure, asthma, chronic anemia, bilateral carotid artery stenosis, diastolic CHF, hypertension, GERD, MRSA, coronary artery disease, torsades, polymorphic V. tach, AICD placement, and ESRD on HD. It is noted that patient underwent removal of a infected peritoneal dialysis catheter with Dr. Beverly in September of this year and has been on hemodialysis Friday since that time. Her last dialysis was yesterday. Patient's ED work-up was notable for WBC that shows leukocytosis of 13,000. Lactic acid is within normal limits. CT imaging of the abdomen pelvis was obtained showing loculated fluid collections in the infrahepatic region, lesser sac, and bilateral paracolic gutters. [facility] Medical History Acute respiratory failure Albuminuria Asthma Bilateral carotid artery stenosis Chronic anemia Chronic diastolic CHF (congestive heart failure) Chronic kidney disease Esophageal dysphagia ESRD on peritoneal dialysis Essential hypertension GERD (gastroesophageal reflux disease) Glaucoma Hyperlipidemia Hyperparathyroidism, secondary renal Hypothyroidism Leg wound, right Lichenification and lichen simplex chronicus Major depressive disorder Methicillin resistant Staphylococcus epidermidis infection Neurodermatitis Non-proliferative diabetic retinopathy, both eyes Nonobstructive atherosclerosis of coronary artery Normocytic anemia Nummular eczema Obesity Open wound of right forearm 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) Recurrent syncope (03/28/21) Severe protein-calorie malnutrition Skin tear of right forearm without complication Skin tear of right lower leg without complication Stage 3 chronic kidney disease Stenosis of left carotid artery Torsades de pointes (03/28/21) Transient visual loss, right eye (11/2020) Type II diabetes mellitus Ventricular tachycardia Vitamin B 12 deficiency Home Medications atorvastatin 80 mg tablet 80 mg PO QHS CHOLESTEROL 10/12/18 [History Last Taken 10/10/22] albuterol sulfate 90 mcg/actuation aerosol inhaler 2 puff inhalation Q4H PRN SHORTNESS OF BREATH 10/13/18 [History Last Taken Unknown] montelukast 10 mg tablet 10 mg PO QHS ALLERGIES 10/26/19 [History Last Taken 10/10/22] acetaminophen 325 mg tablet 650 mg PO Q4H PRN pain/fever 05/10/21 [History Last Taken Unknown] ergocalciferol (vitamin D2) 50,000 unit tablet 50,000 unit PO MO SUPPLEMENT 05/10/21 [History Last Taken 10/07/22] ipratropium 0.5 mg-albuterol 3 mg (2.5 mg base)/3 mL nebulization soln 3 ml inhalation Q6H PRN SHORTNESS OF BREATH 05/10/21 [History Last Taken Unknown] fluticasone propionate 110 mcg/actuation HFA aerosol inhaler (Flovent HFA) 1 puff inhalation BID PRN Wheezing 02/08/22 [History Last Taken Unknown] latanoprost 0.005 % eye drops 1 drp ophthalmic (eye) ONCE GLAUCOMA 02/08/22 [History Last Taken Unknown] tiotropium bromide 2.5 mcg/actuation mist for inhalation (Spiriva Respimat) 2 puff inhalation QAM PRN Wheezing 02/08/22 [History Last Taken Unknown] bupropion HCl 100 mg tablet 100 mg PO BID DEPRESSION 08/16/22 [History Last Taken 10/10/22] insulin glargine 100 unit/mL (3 mL) subcutaneous pen (Lantus Solostar U-100 Insulin) 5 unit subcut DAILY BLOOD SUGARS 08/16/22 [History Last Taken 10/10/22] levothyroxine 137 mcg tablet 137 mcg PO MOTUWETH 08/16/22 [History Last Taken 10/10/22] aspirin 81 mg tablet,delayed release (Adult Aspirin Regimen) 81 mg PO DAILY HEART HEALTH 10/11/22 [History Last Taken 10/10/22] calcium acetate(phosphat bind) 667 mg capsule 667 mg PO TID 10/11/22 [History Last Taken Unknown] levothyroxine 137 mcg capsule 205.5 mcg PO SUFRSA THYROID 10/11/22 [History Last Taken 10/06/22] magnesium oxide 400 mg PO DAILY SUPPLEMENT 10/11/22 [History Last Taken 10/10/22] mecobalamin (vitamin B12) 500 mcg chewable tablet 500 mcg PO DAILY SUPPLEMENT 10/11/22 [History Last Taken 10/10/22] pioglitazone 30 mg tablet 30 mg PO DAILY DIABETES 10/11/22 [History Last Taken 10/10/22] meclizine 12.5 mg tablet 12.5 mg PO BID PRN VERTIGO 30 days #0 tabs 10/26/22 [Rx Last Taken 10/10/22] midodrine 5 mg tablet 5 mg PO TIDCM #0 tabs 10/26/22 [Rx Last Taken Unknown] sennosides 8.6 mg-docusate sodium 50 mg tablet (Stool Softener-Stimulant Laxative) 2 tab PO BID PRN PRN CONSTIPATION #0 tabs 10/26/22 [Rx Last Taken Unknown] glucagon 1 mg/mL solution for injection 1 mg subcut Q20M PRN hypoglycemia 11/06/22 [History Last Taken Unknown] amoxicillin 875 mg-potassium clavulanate 125 mg tablet 1 tab PO BID #14 tabs 01/14/23 [Rx Last Taken 01/19/23] pantoprazole 40 mg tablet,delayed release (Protonix) 40 mg PO DAILY #60 tabs 01/14/23 [Rx Last Taken Unknown] scopolamine base 1 mg over 3 days transdermal patch 1 patch transdermal Q3D #10 ea 01/14/23 [Rx Last Taken Unknown] Allergy/AdvReac Type Severity Reaction Status Date / Time metformin [From Glucophage] Allergy Severe renal Verified 01/10/23 15:49 failure adhesive Allergy Intermediate blisters Verified 01/10/23 15:49 oxycodone Allergy Intermediate hallucinati Verified 01/10/23 15:49 ons tramadol Allergy Intermediate Vomiting Verified 01/10/23 15:49 metoclopramide [From Reglan] Allergy Mild Nausea Verified 01/10/23 16:43 ERIC Inhibitors AdvReac Intermediate cough Verified 01/10/23 15:49 buspirone [From BuSpar] AdvReac Hallucinati Verified 01/10/23 15:49 ons Family History Father Heart disease Hypertension Suicide Mother Hypertension CVA (cerebral vascular accident) COPD (chronic obstructive pulmonary disease) CAD (coronary artery disease) Surgical History History of bilateral knee replacement (1989) History of breast biopsy History of implantable cardiac defibrillator (ICD) (04/02/21) History of left heart catheterization (03/28/21) History of open reduction and internal fixation (ORIF) procedure History of right cataract extraction (10/03/11) History of temporary cardiac pacemaker treatment (03/28/21) History of tonsillectomy Social History household members: none Smoking Status: Never smoker alcohol intake: never substance use type: does not use caffeine: Yes Type: coffee Number of servings: 2 Physical Exam Const alert Constitutional Narrative: Pale, in mild distress from abdominal discomfort and nausea Resp Resp Narrative: Mildly tachypneic GI GI Narrative: Significantly distended, firm, diffusely tender to palpation?especially across the upper abdominal quadrants. Scars on the anterior abdominal wall consistent with prior port sites. Lab / Micro Data 01/21/23 10:48 01/21/23 10:48 Labs: Laboratory Results - last 24 hr 01/21/23 10:48: WBC 13.2 H, RBC 3.81 L, Hgb 11.7 L, Hct 37.1, MCV 97.4, MCH 30.7, MCHC 31.5 L, RDW Std Deviation 64.0 H, RDW Coeff of Alanna 18.5 H, Plt Count 336, MPV 10.0, Immature Gran % (Auto) 1.500 H, Neut % (Auto) 79.3 H, Lymph % (Auto) 11.5 L, Divide % (Auto) 6.4, Eos % (Auto) 0.8, Baso % (Auto) 0.5, Absolute Neuts (auto) 10.5 H, Absolute Lymphs (auto) 1.52, Nucleated RBC % 0, Sodium 137, Potassium 3.5, Chloride 97 L, Carbon Dioxide 32.0, Anion Gap 8, BUN 12, Creatinine 3.85 H, Estim Creat Clear Calc 8.79, Est GFR (MDRD) Af Amer 14 L, Est GFR (MDRD) Non-Af 12 L, BUN/Creatinine Ratio 3.1 L, Glucose 68 L, Lactic Acid 0.8, Calcium 8.3 L, Total Bilirubin 0.30, AST 28, ALT 15, Alkaline Phosphatase 130 H, Troponin I High Sens 39, Total Protein 6.8, Albumin 1.4 L, Globulin 5.4 H, Albumin/Globulin Ratio 0.3 L, Lipase 14, Blood Type Cancelled, Antibody Screen Cancelled 01/21/23 11:10: Blood Type A POSITIVE, Antibody Screen NEGATIVE 01/21/23 12:39: Urine Color Yellow, Urine Clarity Cloudy, Urine pH 5.0, Ur Specific [place] 1.015, Urine Protein 100 H, Urine Glucose (UA) Normal, Urine Ketones 5 H, Urine Occult Blood 10 H, Urine Nitrite Negative, Urine Bilirubin 1 H, Urine Urobilinogen 1 H, Ur Leukocyte Esterase 100 H, Urine RBC 0 SEEN, Urine WBC 25-50 SEEN, Ur Squamous Epith Cells 10-25 SEEN, Urine Bacteria 0 SEEN, Urine Mucus 0 SEEN Radiology Impression Abdomen/Pelvis CT 01/21/23 10:38 IMPRESSION: Loculated fluid collections seen in the inferior aspect of the right and left lobe of the liver. This may represent subcapsular collection. Fluid is also seen surrounding the stomach. Diffuse gastric wall thickening. Fluid is seen in the paracolic gutters and loculated more prominent on the left side. Electronically Signed: Anselmo Best MD at 12:17 EDT , Charges/Coding Visit Charges Inpatient E&M: 50958 Init Hosp L2 Office Visits / Consults: 58901 ED Visit; High/Urgent Severity
[2023-01-21 15:00] VITALS: PULSE 78; RESP 23
[2023-01-21] MEDS: Piperacil/Tazobactam 4.5 GM in 0.9% Normal Saline (100mL MB+) 100 ML IV (15:57)
--- NOTE | 2023-01-21 16:41 | NURSING ---
TRIED TO REACH [facility] TRANSFER LINE. PUT ON HOLD TWICE FOR 15 MIN. NEVER REACHED A LIVE PERSON
--- NOTE | 2023-01-21 17:30 | NURSING ---
CALLED [facility], TALKED TO SANDOVAL. ETA IS 3 HRS
[2023-01-21 18:23] VITALS: BP 122/50; PULSE 81; RESP 18; TEMP 36.8; O2SAT 93
[2023-01-21 20:41] VITALS: BP 115/61; PULSE 80; RESP 18; TEMP 36.6; O2SAT 99
== END 2023-01-21 21:19 | disposition short-term general hospital (02) ==
LOC: ED 10:57
PROVIDERS: Emergency Provider Emergency Medicine; PCP Family Medicine; Visit Provider Emergency Medicine
DX: R10.9 Unspecified abdominal pain (principal); I13.2 Hypertensive heart and chronic kidney disease with heart failure and with stage 5 chronic kidney disease, or end stage renal disease; Z99.2 Dependence on renal dialysis; I50.32 Chronic diastolic (congestive) heart failure; E11.22 Type 2 diabetes mellitus with diabetic chronic kidney disease; N18.6 End stage renal disease; Z79.4 Long term (current) use of insulin; Z79.82 Long term (current) use of aspirin; I25.10 Atherosclerotic heart disease of native coronary artery without angina pectoris; K21.9 Gastro-esophageal reflux disease without esophagitis; Z95.810 Presence of automatic (implantable) cardiac defibrillator; D72.829 Elevated white blood cell count, unspecified; E78.5 Hyperlipidemia, unspecified; R11.10 Vomiting, unspecified; Z79.899 Other long term (current) drug therapy; J45.909 Unspecified asthma, uncomplicated; H40.9 Unspecified glaucoma; F32.9 Major depressive disorder, single episode, unspecified; E03.9 Hypothyroidism, unspecified; Z96.653 Presence of artificial knee joint, bilateral; Z98.41 Cataract extraction status, right eye
CPT/HCPCS: 74176; 74177; 74178; 80053; 81001; 83605; 83690; 84484; 85025; 86850; 86900; 86901; 93005; 96365; 96366; 96375; 96376; 99285; J7030; Q9967; A4216; J2405